=== PATIENT | male | born 1945 | race Caucasian/White ===

== ENCOUNTER 2023-01-30 08:10 | Outpatient (OUT) | payer MEDICARE, SELFPAY ==
--- NOTE | 2023-01-30 08:17 | VEIN_ITS ---
Patient: ESTRADA PFEIFFER Exam Date: 01/30/2023 : 1945 Gender:M Ordering : DR STEPHANIE RODNEY D.P.M. Admission #: [id number] Family : JUANCARLOS ANDRES C Order #: [id number] CLICK HERE TO VIEW EXAM RADIOLOGY REPORT PROCEDURE: VC EXT VENOUS REFLUX QUYNH LMTD COMPARISON: None. INDICATIONS: I83.813 Painful varicose veins of bilat lower extremities TECHNIQUE: Duplex imaging of the lower extremity to assess the deep and superficial venous system for the presence of deep or superficial venous incompetence and to document the location and severity of disease. The study includes evaluation of the great saphenous vein (GSV), anterior accessory saphenous vein (AASV) and small saphenous vein (SSV). Patient scanned in reverse Trendelenburg and standing. FINDINGS: RIGHT LOWER EXTREMITY: Saphenofemoral Junction Reflux: Yes 9.9mm 4.9 sec GSV: Diam (mm) Reflux/ Time (sec) Proximal Thigh 4.2 N/A Mid Thigh 2.9 N/A Distal Thigh N/A Prox Calf 5.8 Yes 2.9 Mid Calf 4.0 Yes 4.6 Saphenopopliteal Junction Reflux: 7.3mm Yes 2.2 SSV: Proximal Calf 5.8 Yes 4.5 Mid Calf 4.2 Yes 1.6 AASV: Proximal Thigh 5.7 Yes 0.8 Mid Thigh 4.1 Yes 0.6 Distal Thigh Thrombi: Chronic partial thrombus in SSV. Compressibility: Partial thrombus of prox SSV. Flow: Severe deep venous reflux. Preforator: Distal medial lower leg 3.6 mm, 1.8s reflux. Prox medial lower leg 4.9 mm, 3.1s reflux. Tech Note: Thigh extention of SSV. Previously treated GSV in thigh. Incompetent varicose vein proixmal anterior lower leg measures 4.7 mm with 1.3s reflux. Distal anterior lateral lower leg varicose vein measures 5.2 mm with 3.0s reflux. LEFT LOWER EXTREMITY: Saphenofemoral Junction Reflux: Yes 12.0 mm 2.2 sec GSV: Diam (mm) Reflux/Time (sec) Proximal Thigh 6.4 Yes 1.7 Mid Thigh 5.7 Yes 1.4 Distal Thigh 6.9 Yes 1.6 Prox Calf 5.8 Yes 3.6 Mid Calf 5.6 Yes 2.8 Saphenopopliteal Junction Relux: 5.6 mm Yes 0.6 SSV: Proximal Calf 5.5 Yes 0.5 Mid Calf 4.2 Yes 0.5 AASV: Proximal Thigh 5.6 Yes 2.9 Mid Thigh 4.7 Yes 1.2 Distal Thigh Thrombi: Chronic thrombus in mid SSV and proximal PTV. Compressibility: Partial thrombus in PTV and SSV. Flow: Severe deep venous reflux. 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 Dist med lower leg 3.5 mm, 2.1s reflux. Prox post calf 4.2 mm, 2.4s reflux. Dist med ankle 4.8 mm, 0.8s reflux Tech Note: Partial thrombus of previously treated GSV in thigh. Incompetent varicose vein measures 6.1 mm with 1.7s reflux. Proximal medial lower leg varicose vein measures 7.7 mm with 1.1s reflux. Varicose vein proximal posterior calf off SSV measures 5.2 mm with 0.8s reflux. CONCLUSION: 1. Moderate to severe venous insufficiency distal patent right great saphenous vein and throughout the left great saphenous vein with saphenofemoral junction reflux and dilatation 2. Moderate to severe right small saphenous vein venous insufficiency with dilatation and saphenopopliteal junction reflux 3. Moderate venous insufficiency left anterior accessory saphenous vein with borderline dilatation 4. Chronic superficial thrombus bilateral small saphenous veins and left deep proximal posterior tibial vein 5. Severe bilateral deep vein reflux 6. Bilateral incompetent perforating veins 7. Moderate to severe bilateral incompetent varicose veins Dictated by: Tulio Rooney MD on 01/30/2023 at 09:41 Approved by: Tulio Rooney MD on 01/30/2023 at 09:45
--- NOTE | 2023-01-30 08:17 | VEIN_ITS ---
Patient: ESTRADA PFEIFFER Exam Date: 01/30/2023 : 1945 Gender:M Ordering : DR STEPHANIE RODNEY D.P.M. Admission #: [id number] Family : JUANCARLOS MCNAIR WOUND C Order #: [id number] CLICK HERE TO VIEW EXAM RADIOLOGY REPORT PROCEDURE: [facility] - OFFICE VISIT INITIAL COMPARISON: None. PROGRESS NOTES: 77-year-old male who presents with a 20 year history of lower extremity pain swelling and varicose veins . The patient rates the pain as a 5 on a scale of 1-10. The patient's left leg is worse than the right leg. Patient's symptoms have significantly progressed over the last several years. The patient did have treatments several years ago in [place] with intravenous laser ablation, the patient cannot provide additional details. 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 The patient's symptoms are partially relieved by rest, leg elevation and compression stockings which she has worn for 2 years. The patient does walk and bike daily. The patient denies any signs and symptoms to suggest arterial ischemia. The patient describes a family history significant for varicose veins in hypertension in his mother. Heart disease in his brother. Occasional social alcohol use. The patient has never smoked. No illicit drug use. The patient does have a history of deep vein thrombus following 2016 left knee surgery. Prior medical history is significant for heart disease with a single stent. Prostate cancer. Bilateral knee replacement, hernia repair and left shoulder rotator cuff repair. The patient does take daily low-dose aspirin. See separate history and physical for medication list. The patient does wear his compression stockings daily throughout the year including the summer months. The notes were reviewed After history and physical exam I discussed at length the pathophysiology of venous hypertension and possible treatments, therapies and strategies available. We discussed at length the importance of elevating the lower extremities above the level of the heart, increased physical activity and compression stocking use. We discussed surgical interventions including ligation, stripping and phlebectomy. We discussed conservative therapy with bilateral thigh-high compression stockings. We discussed intravenous laser ablation, micro foam chemical ablation and injection sclerotherapy. Risks benefits and alternatives were discussed and questions were answered. Ultrasound venous reflux study performed the same day was discussed at length with the patient. The report demonstrates prior occlusion of the proximal to mid right great saphenous vein. Severe venous insufficiency in the remaining right great saphenous vein and throughout the left great saphenous vein. Severe right small saphenous vein venous insufficiency. Moderate left anterior accessory saphenous vein venous insufficiency. Severe bilateral deep vein reflux. Multiple bilateral incompetent dilated perforating veins. Moderate to severe incompetent bilateral varicose veins. Chronic venous thrombus bilateral superficial small saphenous veins and left deep posterior tibial vein PHYSICAL EXAM: The right leg demonstrates moderate scattered varicose reticular and spider veins. Mild subcutaneous edema of the ankle. Mild hemosiderin staining. No active ulceration. The left leg demonstrates moderate to severe scattered varicose, reticular and spider veins. Mild subcutaneous edema of the ankle. Mild to moderate hemosiderin staining. No active ulceration. Both thighs, legs and feet were symmetrically warm to the touch. Good posterior tibial and dorsalis pedis pulses were present bilaterally. [facility] IMPRESSION: 1. Bilateral great saphenous vein, right small saphenous vein and left anterior accessory saphenous vein venous insufficiency with dilatation 2. Moderate to severe bilateral lower extremity varicose veins, left greater than right 3. Mild bilateral lower extremity subcutaneous edema 4. No definite flow significant arterial disease 5. CEAP: C4a, Ep, Asp, Pro PLAN: 1. Endovenous laser ablation left great saphenous vein followed by right small saphenous vein followed by left anterior accessory saphenous vein followed by bilateral port patrol officer vein 2. Micro foam chemical ablation patent right great saphenous vein and bilateral incompetent varicose veins 3. Injection sclerotherapy of reticular and spider veins 4. Long-term use of 20-30 mm bilateral thigh and knee high compression stockings 5. Elevated legs and increased physical activity for symptomatic relief Nurse notes, history and physical were reviewed and confirmed, see attached forms. The nurse was present throughout the physical exam and consultation Dictated by: Tulio Rooney MD on 01/30/2023 at 10:31 Approved by: Tulio Rooney MD on 01/30/2023 at 10:38
== END 2023-01-30 08:11 | disposition home or self-care (01) ==
LOC: VC 08:11
PROVIDERS: Family Provider Family Medicine
DX: I83.813 Varicose veins of bilateral lower extremities with pain (principal)
CPT/HCPCS: 93970; G0463

== ENCOUNTER 2023-02-19 09:00 | Outpatient (OUT) | payer MEDICARE, SELFPAY ==
--- NOTE | 2023-02-19 09:01 | VEIN_ITS ---
[address] [address] Patient Name: ESTRADA PFEIFFER MRN: [id number] date: 1945 Sex: M Assigned Patient Location: Current Patient Location: Accession/Order Number: [id number] Exam Date: 02/19/2023 09:41 Report Date: 02/19/2023 11:12 At the request of: KEVIN SON Procedure: VC Endovenous Ablation 1VeinLT EXAMINATION: VC Endovenous Ablation 1VeinLT HISTORY: I83.813 Painful varicose veins of bilat lower extremities The risks and benefits of the procedure had been previously discussed, and were rediscussed at length. Informed written consent was obtained. Candelaria Álvarez RN and Karlee Jackson RDMS, RVT assisted. Time out procedure was performed. The left lower extremity was prepared and draped in the usual sterile fashion to allow knee flexion in the sterile field. Duplex ultrasound probe was draped in a sterile cover, sterile transmission gel was used. Venous mapping was performed with the areas of dilation and large tributaries marked. The total length was 44 cm from the entry 3 cm above the ankle to mid thigh and at level of chronic thrombus within the great saphenous vein. The diameter of the left great saphenous vein ranged from 6.4 mm. A 30 gauge needle and 1% buffered lidocaine was used to anesthetize the entry site. A 4 mm incision was made with a scalpel and the saphenous vein was entered percutaneously under direct ultrasound guidance with a micropuncture set, a single stick was successful in gaining access. A micro-guide wire was inserted and the needle removed. A micro-set including a dilator was inserted over the microwire and the needle and dilator were removed. A guide wire was inserted through the micro-set and guided through the saphenous vein to the saphenofemoral junction. The dilator was removed and an introducer sheath was inserted over the wire until the end of the sheath entered the saphenofemoral junction. The dilator and wire were removed and the 600 micron fiber was introduced and placed and positioned so that it extended beyond the sheath and was 3 cm distal to the saphenofemoral or saphenopopliteal junction. Final position of the fiber was determined by ultrasound guidance and duplex imaging. Tumescent anesthetic was delivered by ultrasound guidance. 250 cc of fluid was delivered along the entire course of the saphenous vein. The solution consisted of 1000 cc of normal saline with 40 mL of 1% lidocaine and 20 mL of sodium bicarbonate. A final positioning check was made. The energy source was turned on by means of the foot pedal and the fiber and sheath were withdrawn. The total number of Joules delivered was 2454. The laser was active for 307 seconds under continuous pulse, average laser use of 8 J. Laser start time 10:00 AM, 02/19/2023. Laser stop time 10:07 AM, 02/19/2023. A duplex ultrasound revealed compressibility and flow at the saphenofemoral junction immediately after the procedure. Hemostasis at the access site was achieved. The skin incision of the saphenous vein was closed with a 4 x 4. A compression stocking was applied. Postop instructions were given. A follow up appointment was recommended and scheduled. The patient tolerated the procedure well. Electronically authenticated by: LUCIANA MORIN Date: 02/19/2023 11:12
[2023-02-19] MEDS: 0.9 % SODIUM CHLORIDE 500 ML, LIDOCAINE HCL 20 ML, SODIUM BICARBONATE 10 MEQ INJ (09:39)
[2023-02-19] MEDS: LIDOCAINE HCL 10 ML, SODIUM BICARBONATE 1 MEQ INJ (09:39)
== END 2023-02-19 09:01 | disposition home or self-care (01) ==
LOC: VC 09:00
PROVIDERS: Family Provider Family Medicine; PCP Radiology Diagnostic Radiology; Visit Provider Radiology Diagnostic Radiology
DX: I83.813 Varicose veins of bilateral lower extremities with pain (principal)
CPT/HCPCS: 36478

== ENCOUNTER 2023-02-26 09:04 | Outpatient (OUT) | payer MEDICARE, SELFPAY ==
--- NOTE | 2023-02-26 09:05 | VEIN_ITS ---
Patient: ESTRADA PFEIFFER Exam Date: 02/26/2023 : 1945 Gender:M Ordering : DR TULIO ROONEY M.D. Admission #: [id number] Family : Order #: [id number] CLICK HERE TO VIEW EXAM RADIOLOGY REPORT PROCEDURE: [facility] EST L[facility]D [facility] - OFFICE VISIT FOLLOW UP COMPARISON: None. PROGRESS NOTES: The patient reports no significant problems following intravenous laser ablation of the left great saphenous vein. The patient did not require oral analgesics. The patient did wear his compression stockings. The patient has followed our recommendations to walk 20-30 minutes once or twice per day since the procedure. Physical exam demonstrates 2 areas of bruising likely related to tumescence the largest measuring 6 cm in diameter along the mid left medial thigh. The distal incision is closed. Thrombosed left great saphenous vein can be partially palpated. No areas of erythema or warmth to suggest cellulitis or thrombophlebitis. No active ulceration Review of the ultrasound performed the same day demonstrates occlusive thrombus extending throughout the treated left great saphenous vein. There was already nonocclusive thrombus in the proximal left great saphenous vein. No deep vein thrombus. The patient expressed a desire to proceed with treatment of incompetent right small saphenous vein with intravenous laser ablation. VEIN/ Facility EST LMTD IMPRESSION: 1. Successful ablation of the left great saphenous vein. 2. Persistent incompetent right small saphenous vein. PLAN: Intravenous laser ablation right small saphenous vein Nurse notes, history and physical were reviewed and confirmed, see attached forms. The nurse was present throughout the physical exam and consultation Dictated by: Tulio Rooney MD on 02/26/2023 at 10:44 Approved by: Tulio Rooney MD on 02/26/2023 at 11:48
--- NOTE | 2023-02-26 09:05 | VEIN_ITS ---
Patient: ESTRADA PFEIFFER Exam Date: 02/26/2023 : 1945 Gender:M Ordering : DR TULIO ROONEY M.D. Admission #: [id number] Family : Order #: [id number] CLICK HERE TO VIEW EXAM RADIOLOGY REPORT PROCEDURE: VC EXT VENOUS LT LIMITED COMPARISON: None. INDICATIONS: I80.02 Phlebitis of superficial veins of lt lower extremity TECHNIQUE: Lower extremity garrido scale and Duplex Doppler evaluation of the deep venous system from the inguinal ligament through the calf veins. FINDINGS: REGION: Left lower extremity. THROMBI: Negative for DVT. Heat induced thrombus visualized arising at mid thigh and extending through distal calf. The heat induced thrombus began at mid thigh due to chronic thrombus at proximal thigh GSV. COMPRESSIBILITY: Non-compressible segments corresponding to thrombus FLOW: Absent flow corresponding to thrombus OTHER: CONCLUSION: Post ablation occlusion the treated left great saphenous vein with heat induced thrombus. No deep vein thrombus Dictated by: Tulio Rooney MD on 02/26/2023 at 09:26 Approved by: Tulio Rooney MD on 02/26/2023 at 09:33
== END 2023-02-26 09:05 | disposition home or self-care (01) ==
LOC: VC 09:04
PROVIDERS: Family Provider Family Medicine; PCP Radiology Diagnostic Radiology; Visit Provider Radiology Diagnostic Radiology
DX: I80.02 Phlebitis and thrombophlebitis of superficial vessels of left lower extremity (principal)
CPT/HCPCS: 93971; G0463

== ENCOUNTER 2023-03-08 08:04 | Outpatient (OUT) | payer MEDICARE, SELFPAY ==
--- NOTE | 2023-03-08 08:06 | VEIN_ITS ---
[address] [address] Patient Name: ESTRADA PFEIFFER MRN: [id number] date: 1945 Sex: M Assigned Patient Location: Current Patient Location: Accession/Order Number: [id number] Exam Date: 03/08/2023 08:10 Report Date: 03/08/2023 09:27 At the request of: KEVIN SON Procedure: VC Endovenous Ablation 1VeinRT EXAMINATION: VC Endovenous Ablation 1VeinRT HISTORY: I83.813 Painful varicose veins of bilat lower extremities The risks and benefits of the procedure had been previously discussed, and were rediscussed at length. Informed written consent was obtained. Ac Elizabeth RN and Karlee Jackson RDMS, RVT assisted. Time out procedure was performed. The right lower extremity was prepared and draped in the usual sterile fashion to allow knee flexion in the sterile field. Duplex ultrasound probe was draped in a sterile cover, sterile transmission gel was used. Venous mapping was performed with the areas of dilation and large tributaries marked. The total length was 37 cm from the entry 3 cm above the ankle joint to just [id number] where small saphenous vein with IV extension extends below fascial layer into muscle. The diameter of the right small saphenous vein ranged from 5.8 mm. A 30 gauge needle and 1% buffered lidocaine was used to anesthetize the entry site. A 4 mm incision was made with a scalpel and the saphenous vein was entered percutaneously under direct ultrasound guidance with a micropuncture set, a single stick was successful in gaining access. A micro-guide wire was inserted and the needle removed. A micro-set including a dilator was inserted over the microwire and the needle and dilator were removed. A guide wire was inserted through the micro-set and guided through the saphenous vein to the saphenofemoral junction. The dilator was removed and an introducer sheath was inserted over the wire until the end of the sheath entered the saphenofemoral junction. The dilator and wire were removed and the 600 micron fiber was introduced and placed and positioned so that it extended beyond the sheath and was 3 cm distal to the saphenofemoral or saphenopopliteal junction. Final position of the fiber was determined by ultrasound guidance and duplex imaging. Tumescent anesthetic was delivered by ultrasound guidance. 200 cc of fluid was delivered along the entire course of the saphenous vein. The solution consisted of 1000 cc of normal saline with 40 mL of 1% lidocaine and 20 mL of sodium bicarbonate. A final positioning check was made. The energy source was turned on by means of the foot pedal and the fiber and sheath were withdrawn. The total number of Joules delivered was 1881. The laser was active for 235 seconds under continuous pulse, average laser use of 8 J. Laser start time 8:48 AM, 03/08/2023. Laser stop time 8:52 AM, 03/08/2023. A duplex ultrasound revealed compressibility and flow at the saphenofemoral junction immediately after the procedure. Hemostasis at the access site was achieved. The skin incision of the saphenous vein was closed with a 4 x 4. A compression stocking was applied. Postop instructions were given. A follow up appointment was recommended and scheduled. The patient tolerated the procedure well. Electronically authenticated by: LUCIANA MORIN Date: 03/08/2023 09:27
[2023-03-08] MEDS: 0.9 % SODIUM CHLORIDE 500 ML, LIDOCAINE HCL 20 ML, SODIUM BICARBONATE 10 MEQ INJ (08:29)
[2023-03-08] MEDS: LIDOCAINE HCL 1% 100 MG/10 ML MDV INJ (08:29)
== END 2023-03-08 08:05 | disposition home or self-care (01) ==
LOC: VC 08:05
PROVIDERS: Family Provider Family Medicine; PCP Radiology Diagnostic Radiology; Visit Provider Radiology Diagnostic Radiology
DX: I83.813 Varicose veins of bilateral lower extremities with pain (principal)
CPT/HCPCS: 36478

== ENCOUNTER 2023-03-14 08:04 | Outpatient (OUT) | payer MEDICARE, SELFPAY ==
--- NOTE | 2023-03-14 08:06 | VEIN_ITS ---
Patient Name: ESTRADA PFEIFFER MR#: [id number] : 1945 Exam Date: 03/14/2023 Ordering Doctor: DR TULIO ROONEY M.D. RADIOLOGY REPORT PROCEDURE: [facility] EST [facility] - OFFICE VISIT FOLLOW UP [facility] PROGRESS NOTES: The patient reports no significant problems following intravenous laser ablation of the right small saphenous vein. The patient did not require oral analgesics. The patient has worn his compression stockings. The patient has followed our recommendations to walk 20-30 minutes once or twice per day since the procedure. Physical exam demonstrates 3 areas of bruising likely related to tumescence injection measuring up to 4 cm in diameter. No areas of erythema or warmth to suggest cellulitis or thrombophlebitis. No active ulceration. The incision is closed. Review of the ultrasound performed the same day demonstrates occlusive thrombus extending throughout the treated right small saphenous vein which is a thigh extension. No deep vein thrombus. The patient expressed a desire to proceed with treatment of left anterior accessory saphenous vein with intravenous laser ablation. The patient may delay treatment until after the holidays. VEIN/[facility] EST LMTD IMPRESSION: 1. Successful ablation of the right small saphenous vein 2. Persistent incompetent left anterior accessory saphenous. PLAN: Intravenous laser ablation left anterior accessory saphenous vein Nurse notes, history and physical were reviewed and confirmed, see attached forms. The nurse was present throughout the physical exam and consultation Dictated by: Tulio Rooney MD on 03/14/2023 at 08:48 Approved by: Tulio Rooney MD on 03/14/2023 at 08:52
--- NOTE | 2023-03-14 08:06 | VEIN_ITS ---
Patient Name: ESTRADA PFEIFFER MR#: [id number] : 1945 Exam Date: 03/14/2023 Ordering Doctor: DR TULIO ROONEY M.D. RADIOLOGY REPORT PROCEDURE: VC EXT VENOUS RT LMTD COMPARISON: None. INDICATIONS: I80.01 Phlebitis of superficial veins of rt lower extremity TECHNIQUE: Lower extremity garrido scale and Duplex Doppler evaluation of the deep venous system from the inguinal ligament through the calf veins. FINDINGS: REGION: Right lower extremity. THROMBI: Negative for DVT. Heat induced thrombus visualized arising at distal thigh and extending through distal calf. COMPRESSIBILITY: Non-compressible segments corresponding to thrombus FLOW: Areas of absent flow corresponding to thrombus CONCLUSION: Post ablation occlusion of the right small saphenous vein which was a thigh extension. No deep vein thrombus Dictated by: Tulio Rooney MD on 03/14/2023 at 08:22 Approved by: Tulio Rooney MD on 03/14/2023 at 08:23
== END 2023-03-14 08:05 | disposition home or self-care (01) ==
LOC: VC 08:05
PROVIDERS: Family Provider Family Medicine; PCP Radiology Diagnostic Radiology; Visit Provider Radiology Diagnostic Radiology
DX: I80.01 Phlebitis and thrombophlebitis of superficial vessels of right lower extremity (principal)
CPT/HCPCS: 93971; G0463

== ENCOUNTER 2023-03-28 08:01 | Outpatient (OUT) | payer MEDICARE, SELFPAY ==
--- NOTE | 2023-03-28 08:02 | VEIN_ITS ---
[address] [address] Patient Name: ESTRADA PFEIFFER MRN: [id number] date: 1945 Sex: M Assigned Patient Location: Current Patient Location: Accession/Order Number: [id number] Exam Date: 03/28/2023 08:10 Report Date: 03/28/2023 09:27 At the request of: KEVIN SON Procedure: VC Endovenous Ablation 1VeinLT EXAMINATION: VC Endovenous Ablation 1VeinLT HISTORY: I83.813 Painful varicose veins of bilat lower extremities The risks and benefits of the procedure had been previously discussed, and were rediscussed at length. Informed written consent was obtained. Candelaria Álvarez RN and Karlee Jackson RDMS, RVT assisted. Time out procedure was performed. The left lower extremity was prepared and draped in the usual sterile fashion to allow knee flexion in the sterile field. Duplex ultrasound probe was draped in a sterile cover, sterile transmission gel was used. Venous mapping was performed with the areas of dilation and large tributaries marked. The total length was 23 cm from the entry mid-upper thigh to 3 cm below the Saphenofemoral junction. The diameter of the left anterior accessory saphenous vein ranged from 5.6 mm. A 30 gauge needle and 1% buffered lidocaine was used to anesthetize the entry site. A 4 mm incision was made with a scalpel and the saphenous vein was entered percutaneously under direct ultrasound guidance with a micropuncture set, a single stick was successful in gaining access. A micro-guide wire was inserted and the needle removed. A micro-set including a dilator was inserted over the microwire and the needle and dilator were removed. A guide wire was inserted through the micro-set and guided through the saphenous vein to the saphenofemoral junction. The dilator was removed and an introducer sheath was inserted over the wire until the end of the sheath entered the saphenofemoral junction. The dilator and wire were removed and the 600 micron fiber was introduced and placed and positioned so that it extended beyond the sheath and was 3 cm distal to the saphenofemoral or saphenopopliteal junction. Final position of the fiber was determined by ultrasound guidance and duplex imaging. Tumescent anesthetic was delivered by ultrasound guidance. 150 cc of fluid was delivered along the entire course of the saphenous vein. The solution consisted of 1000 cc of normal saline with 40 mL of 1% lidocaine and 20 mL of sodium bicarbonate. A final positioning check was made. The energy source was turned on by means of the foot pedal and the fiber and sheath were withdrawn. The total number of Joules delivered was 1257. The laser was active for 157 seconds under continuous pulse, average laser use of 8 J. Laser start time 8:42 AM, 03/28/2023. Laser stop time 8:45 AM, 03/28/2023. A duplex ultrasound revealed compressibility and flow at the saphenofemoral junction immediately after the procedure. Hemostasis at the access site was achieved. The skin incision of the saphenous vein was closed with a 4 x 4. A compression stocking was applied. Postop instructions were given. A follow up appointment was recommended and scheduled. The patient tolerated the procedure well. Electronically authenticated by: LUCIANA MORIN Date: 03/28/2023 09:27
[2023-03-28] MEDS: LIDOCAINE HCL 1% 100 MG/10 ML MDV INJ (08:23)
[2023-03-28] MEDS: 0.9 % SODIUM CHLORIDE 500 ML, LIDOCAINE HCL 20 ML, SODIUM BICARBONATE 10 MEQ INJ (08:24)
== END 2023-03-28 08:02 | disposition home or self-care (01) ==
LOC: VC 08:01
PROVIDERS: Family Provider Family Medicine; PCP Radiology Diagnostic Radiology; Visit Provider Radiology Diagnostic Radiology
DX: I83.813 Varicose veins of bilateral lower extremities with pain (principal)
CPT/HCPCS: 36478

== ENCOUNTER 2023-04-03 09:31 | Outpatient (OUT) | payer MEDICARE, SELFPAY ==
--- NOTE | 2023-04-03 09:33 | VEIN_ITS ---
Patient Name: ESTRADA PFEIFFER MR#: [id number] : 1945 Exam Date: 04/03/2023 Ordering Doctor: DR TULIO ROONEY M.D. RADIOLOGY REPORT PROCEDURE: [facility] EST LMTD VEIN CENTER - OFFICE VISIT FOLLOW UP COMPARISON: [facility] EST LMTD, 03/14/2023. [facility] EST LMTD, 02/26/2023. PROGRESS NOTES: The patient reports no significant problems following intravenous laser ablation of the left anterior accessory saphenous vein. The patient has worn his compression stocking. The patient has followed our recommendations to walk 20-30 minutes once or twice per day since the procedure. Physical exam demonstrates no erythema or warmth to suggest cellulitis or thrombophlebitis. No active ulceration. Several areas skin abrasions are noted in the upper anterior thigh related to his compression stocking use Review of the ultrasound performed the same day demonstrates occlusive thrombus extending throughout the treated left leg anterior accessory saphenous vein. Heat induced thrombus is 1 4 cm from the saphenofemoral junction. No deep vein thrombus. The patient expressed a desire to proceed with treatment of incompetent right leg varicose veins. VEIN/[facility] EST LMTD IMPRESSION: 1. Successful ablation of the treated left anterior accessory saphenous vein 2. Persistent bilateral incompetent varicose veins. PLAN: Micro foam chemical ablation right leg incompetent varicose veins Nurse notes, history and physical were reviewed and confirmed, see attached forms. The nurse was present throughout the physical exam and consultation Dictated by: Tulio Rooney MD on 04/03/2023 at 12:26 Approved by: Tulio Rooney MD on 04/03/2023 at 12:30
--- NOTE | 2023-04-03 09:33 | VEIN_ITS ---
Patient Name: ESTRADA PFEIFFER MR#: [id number] : 1945 Exam Date: 04/03/2023 Ordering Doctor: DR TULIO ROONEY M.D. RADIOLOGY REPORT PROCEDURE: [facility] EXT VENOUS LT LIMITED COMPARISON: [facility] EXT VENOUS LT LIMITED, 02/26/2023. INDICATIONS: I80.02 Phlebitis of superficial veins of lt lower extremity TECHNIQUE: Lower extremity garrido scale and Duplex Doppler evaluation of the deep venous system from the inguinal ligament through the calf veins. FINDINGS: REGION: Left lower extremity. THROMBI: Negative for DVT. Heat induced thrombus visualized 1.4cm from the SFJ. The heat induced thrombus extends from groin to mid thigh. COMPRESSIBILITY: Non-compressible segments corresponding to thrombus FLOW: Areas of absent flow corresponding to thrombus CONCLUSION: Post ablation occlusion of the treated left anterior accessory saphenous vein Dictated by: Tulio Rooney MD on 04/03/2023 at 09:56 Approved by: Tulio Rooney MD on 04/03/2023 at 09:57
== END 2023-04-03 09:32 | disposition home or self-care (01) ==
LOC: VC 09:31
PROVIDERS: Family Provider Family Medicine; PCP Radiology Diagnostic Radiology; Visit Provider Radiology Diagnostic Radiology
DX: I80.02 Phlebitis and thrombophlebitis of superficial vessels of left lower extremity (principal)
CPT/HCPCS: 93971; G0463

== ENCOUNTER 2023-04-09 08:04 | Outpatient (OUT) | payer MEDICARE, SELFPAY ==
--- NOTE | 2023-04-09 11:49 | VEIN_ITS ---
[address] [address] Patient Name: ESTRADA PFEIFFER MRN: [id number] date: 1945 Sex: M Assigned Patient Location: Current Patient Location: Accession/Order Number: [id number] Exam Date: 04/09/2023 08:01 Report Date: 04/09/2023 12:07 At the request of: KEVIN SON Procedure: VC INJ Foam Sclerosant WUS CLEAN ROOM OPERATOR PROCEDURE: VC INJ Foam Sclerosant WUS CLEAN ROOM OPERATOR COMPARISON: None. HISTORY: I83.813 Bilateral painful varicose veins Pre-operative Diagnosis: CEAP class C4a venous insufficiency with pain, tenderness, edema and incompetent right saphenous and varicose vein(s), chronic venous insufficiency right leg secondary to venous incompetence Post-operative Diagnosis: CEAP class C4a venous insufficiency with pain, tenderness, edema and incompetent right saphenous and varicose vein(s), chronic venous insufficiency right leg secondary to venous incompetence Procedure Performed: 1. Ultrasound-guided microfoam chemical ablation with Varithenaregistered 2. Intraoperative ultrasound guidance Anesthesia: None Indications for Procedure: 77-year-old male who presents with a long history of lower extremity pain and swelling with hemosiderin staining and skin thickening. The patient failed conservative medical therapy including medical compression stockings, exercise and analgesics. Prior procedures include . Multiple incompetent varicosities of the right leg. Duplex scan showed reflux and enlarged diameters up to 6 mm. The patient underwent informed consent including management options where the complications of infection, bleeding, pain, and skin injury were discussed. Particular attention was spent discussing thrombus extension and deep vein thrombosis as well as the possibility of pulmonary embolus and treatment with oral or injectable blood thinners. Procedure: The patient walked to the procedure room. All applicable staff donned appropriate apparel. A procedure timeout was performed to confirm correct patient, correct extremity, correct procedure, and correct room set-up including presence of all applicable supplies, devices, and drugs. A duplex ultrasound, performed by myself confirmed the location and incompetence of branch saphenous varicosities and their course was marked on the skin together with the dilated tributaries. The extent of treatment of the vein and the associated varicosities was determined through ultrasound mapping. The skin was prepped and then punctured with a butterfly needle and advanced under ultrasound guidance. The Varithenaregistered canister was activated and the canister was primed and purged as required in the instructions for use. Varithenaregistered was drawn into a sterile syringe. The following injections MA: 6 cc injected into a 6 mm vein right distal PSV at the level of the ankle 6 cc injected into a 6 mm varicose vein right mid medial lower leg 3 cc injected into the 3 mm varicose vein right lateral distal lower leg Varithenaregistered was slowly administered at 0.5-1.0 cc/second with close observation by ultrasound of its course in the vessels. Total volume utilized was: 15cc. Following administration of Varithenaregistered the leg was elevated and the patient was asked to repeatedly dorsiflex the ankle to limit flow of Varithenaregistered into perforating veins. Once appropriate spasm had been confirmed in the treated veins, the vascular catheter was removed from the leg and light pressure was applied over the puncture site for hemostasis. The common femoral and deep superficial veins were then evaluated for flow and compressibility prior to dressing placement. The lower extremity was kept elevated at 45 degrees above the horizontal and cording material was applied over the saphenous segments and tributaries to allow for eccentric compression over the target vessels including the targeted saphenous vein(s). A multilayer dressing was applied consisting of foam pads, coban and thigh-high 20-30 mm Hg compression elastic support hose were placed on the patient. The leg was lowered only after compression had been applied and the patient was immediately ambulatory. The patient ambulated 10 minutes under supervision and was without apparent concerns at time of release. Post-care instructions include advising patient to keep post-treatment bandages in place and dry for 48 hours, avoid extended periods of inactivity, avoid heavy exercise for one week, wear compression stockings on the treated leg continuously for two weeks, to walk daily for 10 minutes over the next month. The patient was instructed to take an anti-inflammatory medicine as needed and to follow up for color duplex scan of the Saphenous veins, the treated branch saphenous varicosities, the adjacent deep veins, and additional treatment within 7 days. PERSONNEL: Ac Elizabeth RN Electronically authenticated by: KEVIN SON Date: 04/09/2023 12:07
== END 2023-04-09 08:05 | disposition home or self-care (01) ==
LOC: VC 08:05
PROVIDERS: Family Provider Family Medicine; PCP Radiology Diagnostic Radiology; Visit Provider Radiology Diagnostic Radiology
DX: I83.813 Varicose veins of bilateral lower extremities with pain (principal)
CPT/HCPCS: 36466

== ENCOUNTER 2023-04-16 10:33 | Outpatient (OUT) | payer MEDICARE, SELFPAY ==
--- NOTE | 2023-04-16 10:33 | VEIN_ITS ---
Patient Name: ESTRADA PFEIFFER MR#: [id number] : 1945 Exam Date: 04/16/2023 Ordering Doctor: DR TULIO ROONEY M.D. RADIOLOGY REPORT PROCEDURE: [facility] EST LMTD VEIN CENTER - OFFICE VISIT FOLLOW UP COMPARISON: [facility] EST LMTD, 04/03/2023. [facility] EST LMTD, 03/14/2023. PROGRESS NOTES: The patient reports no significant problems following micro foam chemical ablation of the right leg. The patient has worn his compression stocking. The patient did not require oral analgesics. The patient has tried warm to best disability Physical exam demonstrates scattered thrombosed varicose veins. Multiple residual reticular and spider veins. No erythema or warmth to suggest cellulitis thrombosed bypass. No active ulceration. Review of the ultrasound performed the same day demonstrates occlusive thrombus extending throughout the treated right leg varicose veins. No deep vein thrombus. No residual right leg varicose veins. Left leg varicose veins do remain. The patient expressed a desire to proceed with treatment of incompetent left leg varicose veins. VEIN/[facility] EST LMTD IMPRESSION: 1. Successful ablation of treated right leg incompetent varicose veins 2. Persistent incompetent left leg varicose veins. PLAN: Micro foam chemical ablation left leg incompetent varicose veins Nurse notes, history and physical were reviewed and confirmed, see attached forms. The nurse was present throughout the physical exam and consultation Dictated by: Tulio Rooney MD on 04/16/2023 at 11:24 Approved by: Tulio Rooney MD on 04/16/2023 at 11:25
--- NOTE | 2023-04-16 10:33 | VEIN_ITS ---
Patient Name: ESTRADA PFEIFFER MR#: [id number] : 1945 Exam Date: 04/16/2023 Ordering Doctor: DR TULIO ROONEY M.D. RADIOLOGY REPORT PROCEDURE: VC EXT VENOUS RT LMTD COMPARISON: VC EXT VENOUS RT LMTD, 03/14/2023. INDICATIONS: I80.01 Phlebitis of superficial veins of rt lower extremity TECHNIQUE: Lower extremity garrido scale and Duplex Doppler evaluation of the deep venous system from the inguinal ligament through the calf veins. FINDINGS: REGION: Right lower extremity. THROMBI: Negative for DVT. Varithena induced thrombus visualized at prox/med calf and mid/med calf COMPRESSIBILITY: Non-compressible segments corresponding to thrombus FLOW: Areas of absent flow corresponding to thrombus OTHER: No patent varicose veins remain. CONCLUSION: Post ablation occlusion of treated right leg varicose veins. No residual incompetent patent varicose veins remain Dictated by: Tulio Rooney MD on 04/16/2023 at 11:19 Approved by: Tulio Rooney MD on 04/16/2023 at 11:24
== END 2023-04-16 10:34 | disposition home or self-care (01) ==
LOC: VC 10:33
PROVIDERS: Family Provider Family Medicine; PCP Radiology Diagnostic Radiology; Visit Provider Radiology Diagnostic Radiology
DX: I80.01 Phlebitis and thrombophlebitis of superficial vessels of right lower extremity (principal)
CPT/HCPCS: 93971; G0463

== ENCOUNTER 2023-05-03 11:02 | Outpatient (OUT) | payer MEDICARE, SELFPAY ==
--- NOTE | 2023-05-03 11:09 | VEIN_ITS ---
The [address] [address] Patient Name: ESTRADA PFEIFFER MRN: [id number] date: 1945 Sex: M Assigned Patient Location: Current Patient Location: Accession/Order Number: [id number] Exam Date: 05/03/2023 11:10 Report Date: 05/03/2023 12:12 At the request of: KEVIN SON Procedure: VC INJ Foam Sclerosant WUS EXHIBITION SPECIALIST PROCEDURE: VC INJ Foam Sclerosant WUS EXHIBITION SPECIALIST COMPARISON: None. HISTORY: I83.813 Bilateral painful varicose veins Pre-operative Diagnosis: CEAP class C4a venous insufficiency with pain, tenderness, edema and incompetent left saphenous and varicose vein(s), chronic venous insufficiency left leg secondary to venous incompetence Post-operative Diagnosis: CEAP class C4a venous insufficiency with pain, tenderness, edema and incompetent left saphenous and varicose vein(s), chronic venous insufficiency left leg secondary to venous incompetence Procedure Performed: 1. Ultrasound-guided microfoam chemical ablation with Varithenaregistered 2. Intraoperative ultrasound guidance Anesthesia: None Indications for Procedure: 77-year-old male who presents with a long history: Extremity pain swelling in varicose veins: 80 and venous stasis ulcerations with a nonhealing. The patient failed conservative medical therapy including medical compression stockings, exercise and analgesics. Prior procedures include intravenous laser ablation and micropuncture dilation. Multiple incompetent varicosities of the left leg. Duplex scan showed reflux and enlarged diameters up to 8 mm. The patient underwent informed consent including management options where the complications of infection, bleeding, pain, and skin injury were discussed. Particular attention was spent discussing thrombus extension and deep vein thrombosis as well as the possibility of pulmonary embolus and treatment with oral or injectable blood thinners. Procedure: The patient walked to the procedure room. All applicable staff donned appropriate apparel. A procedure timeout was performed to confirm correct patient, correct extremity, correct procedure, and correct room set-up including presence of all applicable supplies, devices, and drugs. A duplex ultrasound, performed by myself confirmed the location and incompetence of branch saphenous varicosities and their course was marked on the skin together with the dilated tributaries. The extent of treatment of the vein and the associated varicosities was determined through ultrasound mapping. The skin was prepped and then punctured with a butterfly needle and advanced under ultrasound guidance. The Varithenaregistered canister was activated and the canister was primed and purged as required in the instructions for use. Varithenaregistered was drawn into a sterile syringe. The following injections were made: 8 cc injected into a 8 mm varicose vein distal medial left calf 7 cc injected into a 7 mm varicose vein left lateral distal calf Varithenaregistered was slowly administered at 0.5-1.0 cc/second with close observation by ultrasound of its course in the vessels. Total volume utilized was: 15cc. Following administration of Varithenaregistered the leg was elevated and the patient was asked to repeatedly dorsiflex the ankle to limit flow of Varithenaregistered into perforating veins. Once appropriate spasm had been confirmed in the treated veins, the vascular catheter was removed from the leg and light pressure was applied over the puncture site for hemostasis. The common femoral and deep superficial veins were then evaluated for flow and compressibility prior to dressing placement. The lower extremity was kept elevated at 45 degrees above the horizontal and cording material was applied over the saphenous segments and tributaries to allow for eccentric compression over the target vessels including the targeted saphenous vein(s). A multilayer dressing was applied consisting of foam pads, coban and thigh-high 20-30 mm Hg compression elastic support hose were placed on the patient. The leg was lowered only after compression had been applied and the patient was immediately ambulatory. The patient ambulated 10 minutes under supervision and was without apparent concerns at time of release. Post-care instructions include advising patient to keep post-treatment bandages in place and dry for 48 hours, avoid extended periods of inactivity, avoid heavy exercise for one week, wear compression stockings on the treated leg continuously for two weeks, to walk daily for 10 minutes over the next month. The patient was instructed to take an anti-inflammatory medicine as needed and to follow up for color duplex scan of the Saphenous veins, the treated branch saphenous varicosities, the adjacent deep veins, and additional treatment within 7 days. PERSONNEL: Ac Jeffers Electronically authenticated by: KEVIN SON Date: 05/03/2023 12:12
--- OUTSIDE RECORDS SUMMARY | 2023-05-03 11:21 | XMS_ITS | CCD ---
Author Name Unknown Address [address] [place] [address] Organization [facility] Care Team Providers Care Licensed Marriage And Family Therapist Name Role Phone Rinku Encinas Unavailable Unavailable Unavailable DO Rinku Encinas III Primary Care Provider MD Tulio Hinojosa Attending Provider [phone] Rinku Encinas III Primary Care Physician Asuncion Gonzales Unavailable Unavailable DO Rinku Encinas III Primary Care Provider RENEE Mccormack Priscila Attending Provider [phone] [place], Priscila Unavailable Tulio Hinojosa Admitting Unavailable Tulio Hinojosa Attending Unavailable Rinku Encinas III, III Primary Care Unavai manuela Encinas III, III, Rinku Callahan Primary Care Unavai lable [place] Priscila Admitting Unavailable [place] Priscila Attending Unavailable Unavailable Unavailable Dr. Rinku Encinas III Primary Care Helena Deshpande, Dr. Summer Douglas Referring Linda vailable Jeramy, Dr. Summer Douglas Attending Linda vailable Jeramy, Dr. Summer Douglas Attending Linda valincolnble Huang BUCHANAN, Dr. Rinku Callahan Primary Care Helena Deshpande, Dr. Summer Douglas Referring Linda vailable Milla Montoya Admitting Unavailable Milla Montoya Attending Unavailable Milla Montoya Referring Unavailable Todd BRAXTON Attending Unavailable Rinku Encinas Referring Unavailable Zina Ugalde Attending Unavaila GLORIA Scherer E Attending Unavailab le MATTHEW, GLORIA Meza Attending Unavailab le MATTHEW, GLORIA Meza Attending Unavailab le BRAXTON, Todd Callahan Admitting Unavailable BRAXTON, Todd Callahan Attending Unavailable MATTHEW, GLORIA Meza Admitting Unavailab le MATTHEW, GLORIA Meza Attending Unavailab le MATTHEW, GLORIA Meza Admitting Unavailab le MATTHEW, GLORIA Meza Attending Unavailab le Deshpande, Summer Admitting Unavailable Deshpande, Summer Attending Unavailable Topher, Josh S. Attending Unavailable BRAXTON, Todd Callahan Admitting Unavailable BRAXTON, Todd Callahan Attending Unavailable BRAXTON, Todd Callahan Referring Unavailable Pocos, Tulio Quiñonez Admitting Unavailable Pocos, Tulio Quiñonez Attending Unavailable Pocos, Tulio Quiñonez Referring Unavailable MATTHEW, GLORIA Meza Referring Unavailab le MATTHEW, GLORIA Meza Admitting Unavailab le MATTHEW, GLORIA Meza Attending Unavailab behzad BLANKKAYLI Attending Unavailable Allergies Allergy Classification Reported Allergen(s) Allergy Type Date of Onset Reaction(s) Facility (7 sources) Iodine; Translations: [Iodine SOLN] Drug Allergy Itching, Rash [place] [address] DO Work Phone: (20 sources) Penicillins; Translations: [Penicillins] Allergy to drug (finding) Unknown (qualifier value) [place] [address] DO Work Phone: (9 sources) shellfish, unspecified; Translations: [shellfish] Allergy to substance (finding) Shortness of breath, Other [facility] Repository (20 sources) Sulfonamides (Antibiotic); Translations: [Sulfa Drugs] Allergy to drug (finding) Discoloration of skin (finding) [place] [address] DO Work Phone: (16 sources) Calcium Carbonate; Translations: [calcium carbonate] Drug Allergy Swelling, Hives [facility] Comment on above: calcium sulfate (17 sources) Iodine; Translations: [iodine] Drug Allergy Hives, Swelling [facility] (16 sources) Shellfish; Translations: [shellfish] Drug allergy Difficulty breathing (finding) [facility] (16 sources) Fish 1 Propensity to adverse reactions to substance Difficulty breathing (finding) [facility] Comment on above: trout (2 sources) Penicillin Drug Allergy swelling [facility] Other (2 sources) Sulfonamides (Antibiotic) Propensity to adverse reactions rash [facility] Other (1 source) Calcium; Translations: [Calcium] Drug Allergy [facility] Repository (1 source) Fish - dietary; Translations: [Fish] Propensity to adverse reactions (disorder) [facility] Repository Medications Current Medications Medication Drug Class(es) Dates Sig (Normalized) Sig (Original) acetaminophen 325 mg oral tablet (4 sources) Start: 06-28-2021 take 2 tablets by mouth every six hours acetaminophen 325 mg Tab 650 mg = 2 tab(s), Oral, q6hr, Refills(s) 0 Start Date: 06/28/21 Status: Ordered aspirin 81 mg oral capsule (20 sources) Platelet Aggregation Inhibitor, Nonsteroidal Anti-inflammatory Drug Start: 02-07-2022 take 1 capsule by mouth twice daily aspirin 81 mg oral capsule 81 mg = 1 cap(s), Oral, BID Start Date: 02/07/22 Status: Ordered Start: 10-05-2020 take 2 tablets by mo [facility] once daily Aspirin Adult Low Strength 81 MG Oral Tablet Delayed Release take 2 tablets by mouth every day Quantity: 180 Refills: 3 Ordered: 17-Dec-2022 Summer Deshpande MD Start : 05-Oct-2020 Active fill if requested. [facility] Baby Aspirin 81 MG 1 tablet Orally Once a day for 30 day(s) Active atorvastatin 40 mg oral tablet (20 sources) HMG-CoA Reductase Inhibitor Start: 02-10-2014 take 40 mg by mouth once daily Lipitor 40 mg, Oral, Daily, High cholesterol Start Date: 02/10/14 Status: Ordered Atorvastatin Logan cium Active docusate sodium 100 mg oral capsule (8 sources) Start: 06-27-2021 take 1 capsule by mouth twice daily as needed for constipation Colace 100 mg Cap 100 mg = 1 cap(s), Oral, BID, PRN for constipation, # 40 cap(s), Refills(s) 0, Pharmacy: [id number], 180, cm, 06/06/21 15:55:00 EST, Height/Length Dosing, 113.6, kg, 06/06/21 15:55:00 EST, Weight Dosing Start Date: 06/27/21 Status: Ordered finasteride 5 mg oral tablet (20 sources) 5-alpha Reductase Inhibitor Start: 05-18-2020 take 1 tablet by mouth once daily finasteride 5 mg Tab 5 mg = 1 tab(s), Oral, Daily, # 90 tab(s), Refills(s) 3, Pharmacy: [facility], 180, cm, 10/16/22 8:31:00 EDT, Height/Length Dosing, 109, kg, 10/03/22 13:53:00 EDT, Weight Dosing Start Date: 02/20/23 Status: Ordered Finasteride Acti ve losartan potassium 50 mg oral tablet (20 sources) Angiotensin 2 Receptor Nyla Start: 11-07-2017 take 1 tablet by mouth once daily losartan 50 mg Tab 50 mg = 1 tab(s), Oral, Daily, Refills(s) 0, High blood pressure Start Date: 11/07/17 Status: Ordered Losartan Potassi um Active magnesium hydroxide 80 mg/ml oral suspension (4 sources) Start: 06-28-2021 take 2.4 g by mouth twice daily magnesium hydroxide 8% Oral Susp 30 mL 2.4 gm, 30 mL, Oral, BID Constipation, Refill(s) 0 Start Date: 06/28/21 Status: Ordered nitroglycerin 0.4 mg/actuat mucosal spray (13 sources) Nitrate Vasodilator Start: 11-07-2017 Nitro 0.4 mg Tab = 1 tab(s), SubLingual, q5min, PRN Chest pain, # 25 tab(s), Refills(s) 3 Start Date: 11/07/17 Status: Ordered Nitroglycerin 0. 4 MG Sublingual Tablet Sublingual PL[address] 1 TABLET UNDER THE TONGUE EVERY 5 MINUTES FOR UP TO 3 DOSES NEEDED FOR CHEST PAIN.CALL 911 IF PAIN PERSISTS. Quantity: 25 Refills: 11 Ordered: 08-May-2021 Jeramy DOUGLASS, Summer Active Nitroglycerin Ac tive oxyCODONE hydrochloride 5 mg oral tablet (8 sources) Opioid Agonist Start: 06-27-2021 take 1 tablet by mouth every six hours as needed for pain, then take 1-2 tablets by mouth every four to six hours as needed for pain oxyCODONE 5 mg Tab 5 mg = 1 tab(s), Oral, q6hr, 1-2 po q4-6 hrs prn pain Dx: M17.11, Z96.651 Duration: 7days, # 40 tab(s), Refills(s) 0, Pharmacy: [id number], 180, cm, 06/06/21 15:55:00 EST, Height/Length Dosing, 113.6, kg, 06/06/21 15:55:00 EST, Ramírez... Start Date: 06/27/21 Status: Ordered Vitamin C 500 mg Tab (4 sources) Start: 06-28-2021 Vitamin C 500 mg Tab 500 mg = 1 tab(s), Oral, BIDWM, Refills(s) 0 Start Date: 06/28/21 Status: Ordered Completed/Discontinued Medications Medication Drug Class(es) Dates Sig (Normalized) Sig (Original) apixaban 5 mg oral tablet (1 source) Factor Xa Inhibitor Start: 06-28-2021 Eliquis 5 MG Oral Tablet Quantity: 42 Refills: 0 Ordered: 28-Jun-2021 DO Start : 28-Jun-2021 Complete bimatoprost 0.3 mg/ml ophthalmic solution (1 source) Prostaglandin Analog Start: 03-30-2021 Bimatoprost 0.03 % Ophthalmic Solution Quantity: 7 Refills: 0 Ordered: 13-Jun-2021 DO Start : 30-Mar-2021 Complete Chondroitin Sulfate 150 MG (2 sources) Chondroitin Sulfate 150 MG as directed Orally Not-Taking ciprofloxacin 500 mg oral tablet (9 sources) Quinolone Antimicrobial Start: 10-03-2022 Cipro 500 mg Tab 500 mg = 1 tab(s), Oral, As Directed, Patient to take 1 tab the day before procedure and the 2nd tab the day of procedure once completed, # 2 tab(s), Refills(s) 0, Pharmacy: [facility], 180, cm, 10/03/22 13:53:00 EDT, Height/Length Dosing, 109, kg, 10/03/22 13:53:00 EDT, Weight Dosing Start Date: 10/03/22 Status: Ordered Ciprofloxacin Ac tive clindamycin 300 mg oral capsule (7 sources) Lincosamide Antibacterial Start: 04-13-2021 take 2 capsules by mouth every hour Clindamycin HCl - 300 MG Oral Capsule TAKE 2 CAPSULES 1 HOUR PRIOR TO DENTAL APPOINTMENT. Quantity: 0 Refills: 0 Ordered: 13-Apr-2021 DO Start : 13-Apr-2021 Active latanoprost 0.05 mg/ml ophthalmic solution (1 source) Prostaglandin Analog Start: 08-29-2021 Latanoprost 0.005 % Ophthalmic Solution Quantity: 7 Refills: 0 Ordered: 29-Aug-2021 DO Start : 29-Aug-2021 Complete pravastatin sodium 10 mg oral tablet (2 sources) HMG-CoA Reductase Inhibitor take 2 tablets by mouth once daily Pravachol 10 MG 2 tablets Orally Once a day for 30 day(s) Not-Taking tamsulosin hydrochloride 0.4 mg oral capsule (2 sources) alpha-Adrenergic Nyla take 1 capsule by mouth every twenty-four hours Flomax 0.4 MG 1 capsule 30 minutes after the same meal each day Orally Once a day for 30 day(s) Not-Taking Problems Active Problems Problem Classification Problem Date Documented Da te Episodic/Chronic Cancer of prostate (16 sources) Malignant tumor of prostate 10-08-2013 Chronic Cancer of prostate (19 sources) History of malignant neoplasm of prostate; Translations: [Personal history of malignant neoplasm of prostate] Onset: 10-03-2022 01-21-2019 Episodic Coronary atherosclerosis and other heart disease (20 sources) Coronary atherosclerosis; Translations: [Coronary atherosclerosis of unspecified type of vessel, pilot point or graft] 06-27-2021 Chronic Coronary atherosclerosis and other heart disease (7 sources) Past history of procedure; Translations: [Percutaneous transluminal coronary angioplasty status] Episodic Disorders of lipid metabolism (7 sources) Hyperlipidemia; Translations: [Other and unspecified hyperlipidemia] Chronic Essential hypertension (20 sources) Essential hypertension; Translations: [Unspecified essential hypertension] 10-08-2013 Chronic Gastrointestinal hemorrhage (4 sources) Hematochezia; Translations: [Melena] Onset: 02-18-2023 02-18-2023 Episodic Genitourinary symptoms and ill-defined conditions (20 sources) Post-micturition incontinence ; Translations: [Urge incontinence of urine] 01-21-2019 Chronic Genitourinary symptoms and ill-defined conditions (20 sources) Increased frequency of urination; Translations: [Nocturia] Onset: 10-03-2022 01-21-2019 Episodic Hyperplasia of prostate (17 sources) Benign prostatic hypertrophy with outflow obstruction; Translations: [Benign prostatic hyperplasia with lower urinary tract symptoms] Onset: 10-03-2022 01-21-2019 Chronic Osteoarthritis (16 sources) Osteoarthritis 06-27-2021 Chronic Other and unspecified benign neoplasm (4 sources) History of polyp of colon; Translations: [Personal history of colonic polyps] Onset: 02-18-2023 02-18-2023 Episodic Other connective tissue disease (2 sources) Olecranon bursitis; Translations: [Olecranon bursitis of right elbow] Episodic Other diseases of kidney and ureters (1 source) Urinary tract obstruction; Translations: [Other obstructive and reflux uropathy] Onset: 02-06-2022 Episodic Other gastrointestinal disorders (1 source) Dysphagia; Translations: [Dysphagia, unspecified] Onset: 03-18-2023 Episodic Other injuries and conditions due to external causes (1 source) Injury of multiple muscles and tendons at shoulder and upper arm level; Translations: [Unspecified injury of muscle(s) and tendon(s) of the rotator cuff of unspecified shoulder, initial encounter] Onset: 06-24-2022 Episodic Other nutritional; endocrine; and metabolic disorders (20 sources) Obesity; Translations: [Obesity, unspecified] 02-10-2014 Chronic Other nutritional; endocrine; and metabolic disorders (20 sources) Body mass index 30+ - obesity; Translations: [Body mass index (BMI) 34.0-34.9, adult] 01-27-2020 Chronic Other nutritional; endocrine; and metabolic disorders (3 sources) Obese class I; Translations: [Body mass index (BMI) 33.0-33.9, adult] Onset: 03-18-2023 Chronic Other nutritional; endocrine; and metabolic disorders (1 source) Body mass index (BMI) 35.0-35.9, adult Chronic Phlebitis; thrombophlebitis and thromboembolism (7 sources) Deep venous thrombosis; Translations: [Acute venous embolism and thrombosis of unspecified deep vessels of lower extremity] Episodic Residual codes; unclassified (5 sources) Sleep apnea; Translations: [Unspecified sleep apnea] Chronic Residual codes; unclassified (20 sources) Obstructive sleep apnea syndrome; Translations: [Obstructive sleep apnea (adult) (pediatric)] 06-27-2021 Chronic Comment on above: uses CPAP Residual codes; unclassified (1 source) Obstructive sleep apnea (adult) (pediatric) Chronic Residual codes; unclassified (1 source) Obstructive sleep apnea (adult)(pediatric); Translations: [Obstructive sleep apnea (adult) (pediatric)] Onset: 01-31-2022 Chronic Residual codes; unclassified (16 sources) H/O: anticoagulant therapy 01-21-2019 Episodic Unclassified (1 source) G47.33 - Obstructive sleep apnea (adult) (pediatric); Translations: [G47.33 - Obstructive sleep apnea (adult) (pediatric)] Onset: 08-23-2021 Varicose veins of lower extremity (2 sources) Varicose veins of lower extremity; Translations: [Varicose veins of unspecified lower extremity with other complications] Onset: 12-11-2021 Episodic Past or Other Problems Problem Classification Problem Date Documented Da te Episodic/Chronic Unclassified (7 sources) Never smoked tobacco; Translations: [Never a smoker] Results Test Name Value Interpretation Reference Range Facility Ambulatory Visit Summaryon 1 05-18-2022 Ambulatory Visit Summary [place] :1945 Visit Date:03/18/2023 Ambulatory Visit Instructions Your Diagnosis Bloody stools History of colon polyps Personal history of prostate cancer Dysphagia, Dysphagia BMI 34.0-34.9,adult Your Care Team Attending Physician - Zina Ugalde MD Primary Care Physician - Rinku Encinas III, DO Referring Physician - Rinku Encinas III, DO This Is Your Medications List aspirin (aspirin 81 mg oral capsule) atorvastatin (Lipitor) finasteride (finasteride 5 mg Tab) losartan (losartan 50 mg Tab) Procedures Performed Cystourethroscopy with dilation of urethral stricture (10/16/2022), Endovenous laser ablation of varicose vein (02/15/2022), Total knee replacement (06/27/2021), Cystoscopy (06/11/2017), left total knee arthroplasty (04/13/2016), left shoulder arthroscopy with extensive glenohumeral debridement, subacromial decompression, partial distal clavicectomy, mini-open rotator cuff repair (02/23/2014), Brachytherapy (07/12/2011), Laser ablation of prostate (08/12/2007), Urodynamics (07/15/2007), Transrectal biopsy of prostate using ultrasound (US) guidance (05/24/2000), Cancer of prostate, Hernia, Sleep studies, Stented coronary artery... Discharge Vitals Heart Rate (Peripheral) 70 Respiratory Rate 18 Blood Pressure 136/82 Height 180 cm Height 71 in Weight 112 kg Weight 246.4 lb BMI 34.57 What to do next Scheduled Follow-Up Appointments 2023 8:30 AM EST With: MATTHEW CASTRO, ANJELICA Meza Where: [facility] Consent for Procedure/Surger yon 03-18-2023 Consent for Procedure/Surgery [id number]# 1.00TIFF [facility] Gastroenterology Office/Clin ic Noteon 03-18-2023 Gastroenterology Office/Clinic Note Chief Complaint bloody stools, hx of colon polyps HPI Staff Patient is a 77 year old male who was referred by Huang for bloody stools and hx of colon polyps. Last colonoscopy 11/07/2017 w/Dr. Roper. 5 year recall due. Denies family history of colon cancer/polyps. Denies recent imaging/labs. Uses ASA 81mg d/t CAD. Bloody stools: 2x since October. States he strained d/t constipation and saw a few drops of blood in the toilet and toilet paper when he wiped. Colonoscopy: 1. Sessile polyp, 5 mm, in the ascending colon, removed completely with cold snare 2. Flat polyp, 15 mm, in the transverse colon, removed completely with hot snare after submucosal lifting 3. Large nonbleeding internal hemorrhoids Pathology: A: POLYP, TRANSVERSE COLON, POLYPECTOMY: HYPERPLASTIC POLYP. B: POLYP, ASCENDING COLON, POLYPECTOMY: TUBULAR ADENOMA. History of Present Illness had blood with tool 1 month ago, small, associated with hard stools, that resolved now normal BM, daily has mild dysphagia occasionally to solids, no impacitons Review of Systems PHQ Score Initial Depression Screen Score: 2 SCORE Physical Exam Vitals & Measurements HR: 70(Peripheral) RR: 18 BP: 136/82 HT: 71 in HT: 180 cm WT: 112 kg WT: 246.4 lb BMI: 34.57 General: in Nad Abdomen: Soft, NTND Assessment/Plan 1. Bloody stools (K92.1: Melena) minimal resolved Ordered: CBC w/ Auto Diff Comprehensive Metabolic Panel 2. History of colon polyps (Z86.010: Personal history of colonic polyps) time to repeat colonoscopy Had 1.5 cm hyperplastic polyp in the transverse colon and less than 1 cm tubular adenoma 2017 3. Personal history of prostate cancer (Z85.46: Personal history of malignant neoplasm of prostate) 4. Dysphagia, (R13.10: Dysphagia, unspecified)Dysphagia It is reasonable to get an EGD with possible dilation Ordered: Colonoscopy (Hospital Procedure) EGD Endoscopy (Hospital Procedure) 5. BMI 34.0-34.9,adult (Z68.34: Body mass index [BMI] 34.0-34.9, adult) Follow-up No qualifying data available Problem List/Past Medical History Ongoing Bloody stools BMI 34.0-34.9,adult BPH with urinary obstruction CAD (coronary artery disease) Frequent urination Gross hematuria History of colon polyps Hx of detention use of blood thinners Nocturia Obesity 29-OCT-2013 12:37:00<$> Obstructive sleep apnea Osteoarthritis Personal history of prostate cancer Post-void dribbling Urge incontinence Historical Coronary artery disease HTN (hypertension) Prostate cancer Procedure/Surgical History Cystourethroscopy with dilation of urethral stricture (10/16/2022), Endovenous laser ablation of varicose vein (02/15/2022), Total knee replacement (06/27/2021), Cystoscopy (06/11/2017), left total knee arthroplasty (04/13/2016), left shoulder arthroscopy with extensive glenohumeral debridement, subacromial decompression, partial distal clavicectomy, mini-open rotator cuff repair (02/23/2014), Brachytherapy (07/12/2011), Laser ablation of prostate (08/12/2007), Urodynamics (07/15/2007), Transrectal biopsy of prostate using ultrasound (US) guidance (05/24/2000), Cancer of prostate, Hernia, Sleep studies, Stented coronary artery... Medications aspirin 81 mg oral capsule, 81 mg= 1 cap(s), Oral, BID finasteride 5 mg Tab, 5 mg= 1 tab(s), Oral, Daily, 3 refills influenza virus vaccine, inactivated HIGH-DOSE preservative-free intramuscular suspension FT Rule H, 0.7 mL, IntraMuscular, Once, PRN Lipitor, 40 mg, Oral, Daily losartan 50 mg Tab, 50 mg= 1 tab(s), Oral, Daily Allergies Calcium (Swelling, Hives) Fish (Trouble breathing) iodine (Hives, Swelling) penicillins (Unknown) shellfish (Trouble breathing) sulfa drugs (Discoloration of skin) Social History Alcohol - Denies Alcohol Use, 08/27/2013 Substance Abuse - Denies Substance Abuse, 08/27/2013 Tobacco - Denies Tobacco Use, 08/27/2013 Never (less than 100 in lifetime) Tobacco Use:. Never Smokeless Tobacco Use:., 03/18/2023 Family History Diabetes mellitus type 2: Mother. Hypertension: Mother and Father. Stroke: Mother and Father. Immunizations Vaccine Date Status Comments influenza virus vaccine, inactivated 02/19/2023 Recorded influenza virus vaccine, inactivated - Not Given Patient Refuses influenza virus vaccine, inactivated 02/05/2022 Recorded SARS-CoV-2 (COVID-19) [id number] 01/16/2022 Recorded SARS-CoV-2 (COVID-19) mRNA-1273 vaccine 03/01/2021 Given influenza virus vaccine, inactivated 02/21/2021 Recorded diphtheria/pertussis, acel/tetanus adult 12/29/2020 Given SARS-CoV-2 (COVID-19) mRNA-1273 vaccine 06/22/2020 Given Other (see comment) SARS-CoV-2 (COVID-19) mRNA-1273 vaccine 05/25/2020 Given Other (see comment) influenza virus vaccine, inactivated 02/08/2020 Recorded pneumococcal 13-valent vaccine 05/16/2018 Recorded influenza virus vaccine, inactivated 04/28/2018 Recorded influenza virus vaccine, inactivated 02/16/2017 Re (more content not included)... Normal [facility] Comment on above: Result Comment: Elec tronically Signed By: Tram DOUGLASS, Zina Gallardo\.br\Date and Time Signed: 03/18/23 11:03 EST [place] 03-07-2023 Screens [id number] #1.00TIFF Normal [facility] Patient Educationon 03-06-20 Patient Education Oncology Prostate Cancer Screening Prostate cancer screening is testing that is done to check for the presence of prostate cancer in men. The prostate gland is a walnut-sized gland that is located below the bladder and in front of the rectum in males. The function of the prostate is to add fluid to semen during ejaculation. Prostate cancer is one of the most common types of cancer in men. Who should have prostate cancer screening? Screening recommendations vary based on age and other risk factors, as well as between the professional organizations who make the recommendations. In general, screening is recommended if: ? You are age 50 to 70 and have an average risk for prostate cancer. You should talk with your health care provider about your need for screening and how often screening should be done. Because most prostate cancers are slow growing and will not cause , screening in this age group is generally reserved for men who have a 10- to 15-year life expectancy. ? You are younger than age 50, and you have these risk factors: ? Having a father, brother, or uncle who has been diagnosed with prostate cancer. The risk is higher if your family member's cancer occurred at an early age or if you have multiple family members with prostate cancer at an early age. ? Being a male who is Black or is of [place] or sub-Saharan descent. In general, screening is not recommended if: ? You are younger than age 40. ? You are between the ages of 40 and 49 and you have no risk factors. ? You are 70 years of age or older. At this age, the risks that screening can cause are greater than the benefits that it may provide. If you are at high risk for prostate cancer, your health care provider may recommend that you have screenings more often or that you start screening at a younger age. How is screening for prostate cancer done? The recommended prostate cancer screening test is a blood test called the prostate-specific antigen (PSA) test. PSA is a protein that is made in the prostate. As you age, your prostate naturally produces more PSA. Abnormally high PSA levels may be caused by: ? Prostate cancer. ? An enlarged prostate that is not caused by cancer (benign prostatic hyperplasia, or BPH). This condition is very common in older men. ? A prostate gland infection (prostatitis) or urinary tract infection. ? Certain medicines such as male hormones (like testosterone) or other medicines that raise testosterone levels. A rectal exam may be done as part of prostate cancer screening to help provide information about the size of your prostate gland. When a rectal exam is performed, it should be done after the PSA level is drawn to avoid any effect on the results. Depending on the PSA results, you may need more tests, such as: ? A physical exam to check the size of your prostate gland, if not done as part of screening. ? Blood and imaging tests. ? A procedure to remove tissue samples from your prostate gland for testing (biopsy). This is the only way to know for certain if you have prostate cancer. What are the benefits of prostate cancer screening? ? Screening can help to identify cancer at an early stage, before symptoms start and when the cancer can be treated more easily. ? There is a small chance that screening may lower your risk of dying from prostate cancer. The chance is small because prostate cancer is a slow-growing cancer, and most men with prostate cancer from a different cause. What are the risks of prostate cancer screening? The main risk of prostate cancer screening is diagnosing and treating prostate cancer that would never have caused any symptoms or problems. This is called overdiagnosisand overtreatment. PSA screening cannot tell you if your PSA is high due to cancer or a different cause. A prostate biopsy is the only procedure to diagnose prostate cancer. Even the results of a biopsy may not tell you if your cancer needs to be treated. Slow-growing prostate cancer may not need any treatment other than monitoring, so diagnosing and treating it may cause unnecessary stress or other side effects. Questions to ask your health care provider ? When should I start prostate cancer screening? ? What is my risk for prostate cancer? ? How often do I need screening? ? What type of screening tests do I need? ? How do I get my test results? ? What do my results mean? ? Do I need treatment? Where to find more information ? The [employer]: www.cancer.org ? [employer]: www.auanet.org Contact a health care provider if: ? You have difficulty urinating. ? You have pain when you urinate or ejaculate. ? You have blood in your urine or semen. ? You have pain in your back or in the area of your prostate. Summary ? Prostate cancer is a common type of cancer in men. The prostate gland is located below the bladder and in front of the rectum. This gland adds flu (more content not included)... Normal [facility] Urology Office/Clinic Noteon 03-06-2023 Urology Office/Clinic Note Chief Complaint Pt is here for 5 month f/u w/ PSA HPI Staff 5 month follow up w/PSA. Current PSA <0.1 done on 03/05/23. Previous PSA 0.1 done 02/06/22. Follow up to Cysto/UD done 10/16/22, CT SCAN done 10/11/22. Previous DX: BPH w/urinary obstruction, frequent urination, nocturia, post void dribbling, urge incontinence. *Finasteride 5mg qd. S/P Brachytherapy done 06/2011. Repeat CYTOL/FISH done on 02/06/23 was negative. Dysuria: denies Incomplete bladder emptying: denies Hematuria: denies Frequency: every 2 hours Urgency: mild Nocturia: 2x a night Stream: steady stream but weak Leaking: denies Post void dripping: denies Wearing pads/ Depends: denies Urge incontinence: denies Stress incontinence: denies Incontinence without Sensory Awareness: denies Abdominal pain: denies Flank pain: denies Sexual complaints: _ History of Present Illness staff HPI reviewed and agree. Review of Systems no fever, chills, malaise, myalgia. no rash/lesions. no chest pain, palpitations, or SOB. no abdominal pain, nausea, vomiting. no unilateral calf swelling, redness, pain Physical Exam Vitals & Measurements HR: 74(Peripheral) BP: 137/85 HT: 71 in HT: 180 cm WT: 109 kg WT: 239.8 lb BMI: 33.64 General: nontoxic, NAD Mouth: moist mucosa Lungs: normal respiratory effort Cardio: regular rate, good distal perfusion Abdomen: nondistended, no suprapubic distention or tenderness, no CVA tenderness Neurologic: Grossly normal Skin: No rashes or suspicious lesions Assessment/Plan Dr. Braxton pt 1. Gross hematuria (R31.0: Gross hematuria) S/p Cysto 06/11/17 - neg FISH, atypical urothelial cells on cytol. CT [place] con 10/11/22 [facility] [place] no renal or ureteral stones, no hydro. S/p Cysto 10/16/22 - neg. 10/16/22 - Cytol: rare atypical urothelial cells with degeneration, FISH: positive 02/06/23 - Cytol: neg for high grade urothelial carcinoma, FISH: neg Had an episode of gross hematuria 07/2022 with heavy lifting and had it intermittently for about a month. Was advised to complete a hematuria workup as above. Discussed results of imaging and repeat FISH/cytologies. Advised pt hematuria was likely an effect from radiation. Denies any gross hematuria since September. UA today negative for blood and infection. Discussed if pt were to experience gross hematuria in the next 6-12months, will need to obtain upper tract imaging in the form of ureteroscopy/pyelosco py since he has IV contrast allergy. Taking Finasteride 5 mg qd. will continue this. no bothersome side effects. 2. Personal history of prostate cancer (Z85.46: Personal history of malignant neoplasm of prostate) S/P TRUS/bx 05/24/00. S/P Brachytherapy 06/2011. PSA: 01/31/21 - <0.1 02/06/22 - <0.1 03/05/23 - <0.1 Discussed recent PSA results which remain low and stable. Will continue to monitor. Follow up with PSA in 1 year or sooner if needed. Pt understands and agrees with plan. Follow-up With When Contact Information ANJELICA CASTRO PA-C, URL [address] [place] [address] [phone] Additional Instructions: 1 yr w/ PSA Patient Education Prostate Cancer Screening Documentation recorded by the chris Patricio accurately reflects the services(s) I performed and decisions made by me. Authenticated by Anjelica Castro PA-C on 03/06/2023 15:45:47. IAbigail, personally scribed for Anjelica Castro PA-C on 03/06/2023 15:42:47. . Problem List/Past Medical History Ongoing Bloody stools BMI 34.0-34.9,adult BPH with urinary obstruction CAD (coronary artery disease) Frequent urination Gross hematuria History of colon polyps Hx of detention use of blood thinners Nocturia Obesity 29-OCT-2013 12:37:00<$> Obstructive sleep apnea Osteoarthritis Personal history of prostate cancer Post-void dribbling Urge incontinence Historical Coronary artery disease HTN (hypertension) Prostate cancer Procedure/Surgical History Cystourethroscopy with dilation of urethral stricture (10/16/2022), Endovenous laser ablation of varicose vein (02/15/2022), Total knee replacement (06/27/2021), Cystoscopy (06/11/2017), left total knee arthroplasty (04/13/2016), left shoulder arthroscopy with extensive glenohumeral debridement, subacromial decompression, partial distal clavicectomy, mini-open rotator cuff repair (02/23/2014), Brachytherapy (07/12/2011), Laser ablation of prostate (08/12/2007), Urodynamics (07/15/2007), Transrectal biopsy of prostate using ultrasound (US) guidance (05/24/2000), Cancer of prostate, Hernia, Sleep studies, Stented coronary artery... Medications aspirin 81 mg oral capsule, 81 mg= 1 cap(s), Oral, BID finasteride 5 mg Tab, 5 mg= 1 tab(s), Oral, Daily, 3 refills influenza virus vaccine, inactivated HIGH-DOSE preservative-free intramuscular suspension FT Rule H, 0.7 mL, IntraMuscular, Once, PRN Lipitor, 40 mg, Oral, Daily losartan 50 mg Tab, 50 mg= 1 (more content not included)... Normal [facility] Comment on above: Result Comment: Elec tronically Signed By: ANJELICA CASTRO PA-C\.br\Date and Time Signed: 03/06/23 15:46 EST\.br\Electronically Co-Signed By: Abigail Patricio\.br\Date and Time Co-Signed: 03/06/23 15:43 EST CHEMISTRYOrdered By: SYSTEM SYSTEM on 03-05-2023 Prostate specific Ag [Mass/Vol] ng/mL Normal 0.1 - 3.5 ng/mL [facility] [place] Comment on above: Interpretive Data: T he concentration of PSA determined by different manufacturers can vary due to differences in assay methods and reagent specificity. Values obtained from different assay methods cannot be used interchangeably. The methodology used for this result was chemiluminescence using [employer]'s Access Hybritech PSA reagent. Consent for Treatmenton Consent for Treatment [id number] .00TIFF Normal [facility] PSA Totalon 03-05-2023 Prostate specific Ag [Mass/Vol] ng/mL Normal 0.1-3.5 [facility] Comment on above: Result Comment: The concentration of PSA determined by different manufacturers can vary due to differences in assay methods and reagent specificity. Values obtained from different assay methods cannot be used interchangeably. The methodology used for this result was chemiluminescence using [employer]'s Access Hybritech PSA reagent. Performed By: #### 1 [id number] #### [facility] [address] [place] [address] UroVysion Fish and Urine Cyt o ([facility])on 02-12-2023 UVFISH & UC Diagnosis Info Invalid Interpretation Code [facility] Comment on above: Result Comment: A:Ur ine,Urine:Voided Diagnosis Summary - No evidence of high grade urothelial carcinoma identified. Adequate cellularity for evaluation. Diagnosis Summary - The UroVysion FISH study detected normal copy numbers for chromosomes 3, 7, 17, and 9p21. No evidence of aneuploidy for chromosomes 3, 7, or 17 or deletion of the 9p21 locus was found in cells present in this specimen. This test does not rule out the possibility of a low grade non-invasive papillary urothelial carcinoma. These findings should be correlated with cytology and cystoscopy results.* CPT 71532, 98139. Microscopic Notes - Microscopic Notes - Abnormal cells 9p21 deletions: Abnormal cells aneploid events: Total cells analyzed: Hematuria: Gross Description Site ID:A color Yellow fixative Alcohol Received 100 mls of clear yellow fluid with the patient's name and, Urine on the vial. Electronically signed by : on: 02/12/2023 11:43:23 Performed By: #### 1 [id number] #### [facility] [address] [place] [address] UroVysion Fish and Urine Cyt o ([facility])on 02-06-2023 [facility] Method of Extraction Voided Normal [facility] Comment on above: Performed By: #### 1 [id number] #### [facility] [address] [place] [address] [facility] Number of Jars 1 Invalid Interpretation Code [facility] Comment on above: Performed By: #### 1 [id number] #### [facility] [address] [place] [address] [facility] Specimen Urine Normal [facility] Comment on above: Performed By: #### 1 [id number] #### [facility] [address] [place] [address] [facility] Type of Service Technical Only Normal [facility] Comment on above: Performed By: #### 1 [id number] #### [facility] [address] [place] [address] Physician Orderon 01-30-2023 Physician Order [id number] .00CD:127 Normal [facility] Office Visit (Cardiology)on 12-17-2022 Follow-up visit Diagnoses/Problems Assessed Atherosclerosis of coronary artery (414.00) (I25.10) Sleep apnea (780.57) (G47.30) Hyperlipidemia (272.4) (E78.5) Essential hypertension (401.9) (I10) Deep vein thrombosis (453.40) (I82.409) Status post coronary angioplasty (V45.82) (Z98.61) Class 1 obesity with body mass index (BMI) of 34.0 to 34.9 in adult (278.00,V85.34) (E66.9,Z68.34) Never a smoker Orders Atherosclerosis of coronary artery Renew: Aspirin Adult Low Strength 81 MG Oral Tablet Delayed Release; take 2 tablets by mouth every day Atherosclerosis of coronary artery, Essential hypertension Renew: Losartan Potassium 50 MG Oral Tablet; TAKE 1 TABLET BY MOUTH EVERY DAY Atherosclerosis of coronary artery, Hyperlipidemia Renew: Atorvastatin Calcium 40 MG Oral Tablet; TAKE 1 TABLET BY MOUTH EVERY DAY AT BEDTIME Class 1 obesity with body mass index (BMI) of 34.0 to 34.9 in adult Healthy Weight Tips; Status:Complete - Retrospective Authorization; Done: [id number] Some eating tips that can help you lose weight.; Status:Complete - Retrospective Authorization; Done: [id number] SocHx: Never a smoker Tobacco Use Screening; Status:Complete; Done: [id number] Patient Instructions Please bring all medicines, vitamins, and herbal supplements with you when you come to the office. Prescriptions will not be filled unless you are compliant with your follow up appointments or have a follow up appointment scheduled as per instruction of your physician. Refills should be requested at the time of your visit. Follow up in 6 months Chief Complaint ESTRADA PFEIFFER is being seen for a 6 month follow-up of. Patient is in the office for follow-up for the problems noted below. He has had no events since he was last seen in the office back in May 2022. He denies any angina orthopnea PND or palpitations. He uses compression stockings since he had vein stripping surgery and previous DVT. His last blood work from May 2022. His examination apart from the weight issue with class I obesity was essentially unremarkable. His weight is 4 pounds below his last visits reading. ASSESSMENT AND PLAN: 1. Single-vessel angioplasty with bare-metal stent to the marginal in 2011. His risk factor under control. Will continue present medical therapy without changes. 2. Hypertension, presently under control. 3. Hyperlipidemia, on statin therapy, lipid profile is on target from recent testing 4. Class I obesity. Encouraged more weight control with exercise and diet. 5. Previous history of left lower extremity deep vein thrombosis following knee surgery with no recurrences. No need for long-term anticoagulation, he had venous stripping last year at [facility] 6. Sleep apnea on CPAP machine with compliance. Summer Deshpande MD, [facility] Surgical History Problems History of Cardiac catheterization History of Complete colonoscopy History of Knee replacement RIGHT AND LEFT History of Neck surgery History of Percutaneous transluminal coronary angioplasty History of Prostate surgery History of Vascular surgical procedure Current Meds Medication NameInstruction Aspirin Adult Low Strength 81 MG Oral Tablet Delayed Releasetake 2 tablets by mouth every day Atorvastatin Calcium 40 MG Oral TabletTAKE 1 TABLET BY MOUTH EVERY DAY AT BEDTIME Clindamycin HCl - 300 MG Oral CapsuleTAKE 2 CAPSULES 1 HOUR PRIOR TO DENTAL APPOINTMENT. Finasteride 5 MG Oral TabletTAKE 1 TABLET DAILY DIRECTED. Losartan Potassium 50 MG Oral TabletTAKE 1 TABLET BY MOUTH EVERY DAY Nitroglycerin 0.4 MG Sublingual Tablet SublingualPLACE 1 TABLET UNDER THE TONGUE EVERY 5 MINUTES FOR UP TO 3 DOSES NEEDED FOR CHEST PAIN.CALL 911 IF PAIN PERSISTS. Allergies Medication Penicillins Allergy; Hives;; Recorded By: Africa Benoit; 04/05/2021 7:37:38 AM Sulfa Drugs Allergy; Hives;; Recorded By: Africa Benoit; 04/05/2021 7:37:38 AM Iodine SOLN Allergy; Itching; Rash; Recorded By: Africa Benoit; 04/05/2021 7:37:38 AM NonMedication Seafood Shortness of breath; [place]; Recorded By: Marissa Guevara; 12/17/2022 1:49:59 PM Shellfish Recorded By: Africa Benoit; 04/05/2021 7:37:38 AM Social History Problems Caffeine use (V49.89) (Z78.9) 1-2 cups of coffee Never a smoker No alcohol use No illicit drug use Review of Systems Constitutional: not feeling tired. Cardiovascular: no intermittent leg claudication and as noted in HPI. Respiratory: no cough and no shortness of breath. Gastrointestinal: no change in bowel habits and no blood in stools. Integumentary: no skin rashes. Neurological: no seizures and no frequent falls. All other systems have been reviewed and are negative for complaint. Vitals Vital Signs Recorded: 17Dec2022 01:33PM Heart Rate54, R Radial Ersghagv443, RUE, Sitting Hrtdqstlj93, RUE, Sitting Height5 ft 11 in Tdmscp856 lb 12.8 oz BMI Litoogkjvj96.84 kg/m2 BSA Calculated2.32 Tobacco Useb) No F (more content not included)... Normal [facility] Tobacco Screening.on 023 Fall risk assessment a) No falls within the last year [facility] [address] DO Work Phone: Tobacco use status [facility] b) No -[facility] [address] DO Work Phone: [employer] 11-26-2022 Reminders - From: Sonya Ricks To: [facility] - Reminders/Recalls; Sent: 11/19/2022 15:18:50 EDT Show up: 11/19/2022 15:19:00 EDT Subject: Ambulatory Reminder Reminder/Recall 5 year colon recall forrest roper 11/07 first recall letter Patient called. He is not credentialed with Dr. Ugalde's insurance and is requesting a call back around January. Reminder placed in system. Normal [facility] Patient Letter FTon 2022 Patient [place] [facility] [place] 21, [place] ESTRADA PFEIFFER [address] [place] [address] : 1945 Dear Estrada, This is a reminder that you are due for an appointment with [facility]. Please contact our office at [phone] to schedule an appointment at your earliest convenience. Thank you, [facility] Normal [facility] UroVysion Fish and Urine Cyt o ([facility])on 10-19-2022 UVFISH & UC Diagnosis Info Invalid Interpretation Code [facility] Comment on above: Result Comment: A:Ur ine,Urine:Cystoscopy Diagnosis Summary - Rare atypical urothelial cells with degeneration. Adequate cellularity for evaluation. Diagnosis Summary - The UroVysion FISH study detected a positive profile. UroVysion FISH evaluates chromosomes 3, 7, 17, and 9p21 for aneuploid and deletion events associated with urothelial cell carcinoma. 157 cells were analyzed in this evaluation. Evidence of aneuploidy in at least 16 cells were found. These findings are most consistent with urothelial carcinoma. Less likely diagnosis includes other type of carcinoma or metastatic carcinoma involving genitourinary tract. These findings should be correlated with cytology and cystoscopy results.* CPT 55018, 18298. Microscopic Notes - Microscopic Notes - Abnormal cells 9p21 deletions: Abnormal cells aneploid events: 16 Total cells analyzed: 157 Hematuria: Gross Description Site ID:A color Yellow fixative Alcohol Received 90 mls of clear yellow fluid with the patient's name and, Urine on the vial. Electronically signed by : on: 10/19/2022 11:11:56 Performed By: #### 1 [id number] ####[facility] [id number] [place] [address] Consent for Procedure/Surger yon 10-16-2022 Consent for Procedure/Surgery [id number] 1.00CD:127 Normal [facility] Consent for Treatmenton 09-28 Consent for Treatment [id number] .00CD:127 Normal [facility] IntraOperative Documentson 0 10-16-2022 IntraOperative Documents [id number]:127 [facility] Main OR Intraoperative Recor don 10-16-2022 Main OR Intraoperative Record IntraOp Document Type FTURO Summary Primary Physician: Todd BRAXTON MD Finalized Date/Time: 10/16/22 09:24:11 Pt. Name: ESTRADA PFEIFFER Khang Trotter/Sex: 1945 Male Med Rec #: [id number] Physician: oTdd BRAXTON MD Financial #: [id number] Pt. Type: O Room/Bed: / Admit/Disch: 10/16/22 08:36:10 - Institution: Case Times FTURO Entry 1 Patient Times In Room 10/16/22 09:11:00 Out Room 10/16/22 09:23:00 Procedure Times Start 10/16/22 09:14:00 Stop 10/16/22 09:20:00 Anesthesia Times Last Modified By: Georgia Almonte RN 10/16/22 09:23:53 Case Attendance FTURO Entry 1 Entry 2 Entry 3 Case Attendee Todd BRAXTON MD, CST, Georgia Bowles RN Role Performed Surgeon - Primary Scrub - Primary Furniture Mover Helper - Primary Time In 10/16/22 09:11:00 10/16/22 09:11:00 10/16/22 09:11:00 Time Out 10/16/22 09:23:00 10/16/22 09:23:00 10/16/22 09:23:00 Procedure CYSTOSCOPY LOCAL(.) CYSTOSCOPY LOCAL(.) CYSTOSCOPY LOCAL(.) Comments Last Modified By: Suzy TAPIA, Georgia Almonte RN, Georgia Damon RN 10/16/22 09:24:07 10/16/22 09:24:07 10/16/22 09:24:07 Surgical Procedures FTURO Entry 1 Procedure Description Procedure CYSTOSCOPY LOCAL Modifiers . Surgeon Description CYSTOSCOPY WITH FISH AND CYTOLOGY Primary Procedure Yes Primary Surgeon Todd BRAXTON MD Start 10/16/22 09:14:00 Stop 10/16/22 09:20:00 Anesthesia Type Local Surgical Service Urology Wound Class 2 - Clean-Contaminated Last Modified By: Georgia Almonte RN 10/16/22 09:20:25 General Case Data FTURO Pre-Care Text: Classifies surgical wound, implements aseptic technique, initiates traffic control Entry 1 Case Information OR URO 1 FT Case Level None Wound Class 2 - Clean-Contaminated Specialty Urology Preop Diagnosis GROSS HEMATURIA HX Postop Same As Preop Yes PROSTATE CANCER Postop Diagnosis GROSS HEMATURIA HX Outcomes Met? Yes PROSTATE CANCER Last Modified By: Georgia Almonte RN 10/16/22 09:14:37 Post-Care Text: The patient is free from signs and symptoms of infection EU IntraOp - FTURO Pre-Care Text: Implements protective measures prior to operative or invasive procedure, confirms identity before the operative or invasive procedure, verifies operative procedure, surgical site, and laterality Entry 1 EU Perioperative Protocols Procedure(s) CYSTOSCOPY LOCAL(.) Patient Identity Birthday, ID Band Verified (select at Check, Patient least 2): Participation Consents / H and P HandP, Surgery/Procedure Operative Site N/A Verified Consent Marking Verified Surgical Site Yes Laterality Verified Yes Verified Procedure Verified Yes Correct Patient Yes Position Verified Availability Equipment, Medication Time Out Todd BRAXTON MD, Verified (If Participants Jenni Sanchez CST, Applicable) Georgia Almonte RN Time Out Complete 10/16/22 09:12:00 Allergies Reviewed? Yes Allergies Reviewed Self/Patient With Body Position Supine Prep Area PENIS Prep Agents Betadine Solution Skin. Condition Dry, Warm, Unable to Description UNABLE TO VISUALIZE DUE Visualize TO PATIENT PARTIALLY CLOTHED Additional FISH, Other (See Specimens Comment FISH AND CYTOLOGY Specimens Collected Comment) Vitals - EU Blood Pressure 165/65 Pulse 63 bpm Respirations 20 br/min SPO2 97 % EBL 0 IandO - EU Total Intake 0 mL Total Output 0 mL Outcomes Met? Yes Last Modified By: Georgia Almonte RN 10/16/22 09:16:31 Post-Care Text: The patient is free from signs and symptoms of injury caused by extraneous objects Sign Out FTURO Entry 1 Before Patient Leaves OR Nurse verbally Yes Nurse verbally Yes confirms with the confirms with the team the name of team that the procedure(s) instrument, sponge, recorded and needle counts are correct (or N/A) Nurse verbally Yes Nurse verbally Yes confirms with the confirms with the team how the team whether there specimen is labeled are any equipment (including patient problems to be name), if applicable addressed Sign Out Complete 10/16/22 09:20:00 Last Modified By: Georgia Almonte RN 10/16/22 09:20:24 Case Comments Finalized By: Georgia Almonte RN Document Signatures Signed By: Georgia Almonte RN 10/16/22 09:24 Normal [facility] Main OR Preoperative Recordo n 10-16-2022 Main OR Preoperative Record Holding Area Document Type FTURO Summary Primary Physician: Todd BRAXTON MD Finalized Date/Time: 10/16/22 09:17:01 Pt. Name: ESTRADA PFEIFFER/Sex: 1945 Male Med Rec #: [id number] Physician: Todd BRAXTON MD Financial #: [id number] Pt. Type: O Room/Bed: / Admit/Disch: 10/16/22 08:36:10 - Institution: Case Times Holding FTURO Pre-Care Text: Verifies consent for planned procedure, identifies individual values and wishes concerning care, includes family members in perioperative teaching Secures patient's records' belongings, and valuables, maintains patient's dignity and privacy, and maintains patient confidentiality Entry 1 In Holding 10/16/22 08:44:00 Outcomes Met? Yes Last Modified By: Paty Watkins LPN 10/16/22 08:44:42 Post-Care Text: The patient participates in decisions affecting his or her perioperative plan of care The patient's right to privacy is maintained Surgery Checklist FTURO Entry 1 Patient Birthday, ID Band Procedure Surgical Consent, With Identification: Check, Patient Verification: Patient Participation NPO after Midnight: n/a Date/Time: 10/16/22 08:46:00 Personal Items: Dentures, Glasses, Personal Items glasses, upper partial Jewelry Comment: plate, watch, rings x 2 Complaints of Pain: Yes Pain Comment: left hip area Skin Integrity Intact, [place], Warm, & Dry Vitals - EU Blood Pressure 165/65 Pulse 63 bpm Respirations 20 br/min SPO2 97 % RN Reviewed Yes Last Modified By: Georgia Almonte RN 10/16/22 09:17:00 General Comments: Temp 36.8 Finalized By: Georgia Almonte RN Document Signatures Signed By: Paty Watkins LPN 10/16/22 08:49 Georgia Almonte RN 10/16/22 09:17 Normal [facility] Operative Reporton Operative Report Patient: ESTRADA PFEIFFER Age: 77 years Sex: Male : 1945 Associated Diagnoses: None Author: Todd BRAXTON MD Procedure Operative Information Details: Date/ Time: 10/16/2022 09:26:00. Pre-Op Dx: Gross Hematuria - R31.0, Hx of Prostate CA - Z85.46. Post-Op Dx: Same. Anesthesia Type: Local. Procedure: Local Cystoscopy. Complications: None. Risks/Benefits/Inform ed Consent: Surgical risks, benefits, details of the procedure have been explained to the patient, Full informed consent has been obtained. Intraoperative Information Prepped: Patient is brought back to the endoscopy suite, Patient is placed in supine position, Patient prepped in the usual fashion with Betadine solution, 2% Xylocaine Jelly is placed per Urethra, After waiting several minutes the Cystoscope is introduced. The Urethra is: Normal. The Prostatic Urethra is: Unobstructed, Radiation changes with heightened vascularity.. The Bladder is: Trabeculated (Severe (3), Open diverticuli diffusely. No bladder tumors.). The ureteral orifices: Show efflux of clear urine. Specimens Removed: Voided specimen sent for FISH and Cytology test. Devices Implanted: None. Removal: Cystoscope is removed, The patient tolerated it well. Postoperative Information Discharge: Patient is discharged home with antibiotic coverage, Follow up arranged. If he develops gross hematuria in the near future, we then will have to do cystoscopy, fulguration, bilateral ureteroscopy and pyeloscopy under anesthesia since we have been unable to do a urogram due to his allergy to IV contrast. Normal [facility] Comment on above: Result Comment: Elec tronically Signed By: ANTHONY DOUGLASS, Todd Sexton\Date and Time Signed: 10/16/22 09:28 EDT Outpatient Surgery Discharge Instructionon 10-16-2022 Outpatient Surgery Discharge Instruction [id number]# 1.00CD:127 Normal [facility] UroVysion Fish and Urine Cyt o ([facility])on 10-16-2022 [facility] Method of Extraction Cystoscopy Normal [facility] Comment on above: Performed By: #### 1 [id number] ####[facility] [address] [place] [address] [facility] Number of Jars 1 Invalid Interpretation Code [facility] Comment on above: Performed By: #### 1 [id number] ####[facility] [address] [place] [address] [facility] Specimen Cystoscopy Normal [facility] Comment on above: Performed By: #### 1 [id number] ####[facility] [address] [place] [address] [facility] Type of Service Technical Only Normal [facility] Comment on above: Performed By: #### 1 [id number] ####[facility] [address] [place] [address] CT Abdomen/Pelvis w/o Contra ston 10-13-2022 CT Abdomen/Pelvis w/o Contrast Exam Date/Time: 10/11/2022 07:21 EDT Reason for Exam: gross hematuria;Hematuria Report IMPRESSION: NO OBSTRUCTIVE UROPATHY. NO ACUTE PATHOLOGY IN THE ABDOMEN OR PELVIS. EXAM: CT Abdomen/Pelvis w/o Contrast DATE:10/11/2022 7:05 AM CLINICAL HISTORY: Flank pain Hematuria, gross hematuria COMPARISON:None TECHNIQUE: Noncontrast CT scans of the kidneys ureters and bladder. It should be noted that study was appropriately performed without oral or IV contrast for consideration of obstructive uropathy. Sensitivity of this technique for alternative diagnosis that might explain the patient's symptoms however is limited. All CT scans at this facility use dose modulation, iterative reconstruction, and/or weight based dosing when appropriate to reduce radiation dose to as low as reasonably achievable. FINDINGS: No renal or ureteral stones. No hydronephrosis. Other findings on these noncontrast scans: Liver: Negative Spleen:Negative Pancreas:Negative Bowel:No obstruction, diverticulitis, or colitis. Appendix:There is no CT evidence for appendicitis. Nodes:No retroperitoneal, mesenteric or pelvic lymphadenopathy. Aorta:Negative. No aneurysm Peritoneum:There is no free fluid or free air. The abdominal wall is intact. Pelvis:CT left prostatic bed. No abnormal soft tissue mass. No local faiza disease. No free fluid Bones: L5 pars defects. No aggressive skeletal lesions Report Ordering Provider: , FINAL REPORT Dictated: 10/13/2022 9:06 am Rg Bocanegra MD Signed (Electronic Signature): 10/13/2022 9:06 am Signed by: Rg Bcoanegra MD Transcribed by: KALYANI Technologist: CAROLYNN Technical Comments Rectal Contrast Given? No Oral contrast amount in ml's: 0 Normal [facility] Consent for Treatmenton 09-27 Consent for Treatment [id number]#1 .00CD:127 Normal [facility] Pre-Certification Formon Pre-Certification Form [id number]#1 .00CD:127 Normal [facility] C Urineon 10-05-2022 Bacteria identified Cx Nom (U) Microbiology PROCEDURE: Urine Culture [R1] SOURCE: U Random BODY SITE: COLLECTED DATE/TIME: 10/03/2022 14:32 EDT RECEIVED DATE/TIME: 10/03/2022 18:11 EDT START DATE/TIME: 10/03/2022 18:11 EDT FREE TEXT SOURCE: ANJELICA CASTRO PA-C, PA-C, ANJELICA Meza FINAL REPORTS Final Report [] Verified Date/Time: 10/05/2022 11:31 EDT No growth at 2 days. Performing Locations R1: This test was performed at: [facility], [address] [place] [address], [phone] , [place], Normal [facility] Comment on above: Performed By: #### 2 [id number] ####[facility] [address] [place] [address] Patient Educationon 10-04-19 23 Patient Education Urology Hematuria, Adult Hematuria is blood in the urine. Blood may be visible in the urine, or it may be identified with a test. This condition can be caused by infections of the bladder, urethra, kidney, or prostate. Other possible causes include: ? Kidney stones. ? Cancer of the urinary tract. ? Too much calcium in the urine. ? Conditions that are passed from parent to child (inherited conditions). ? Exercise that requires a lot of energy. Infections can usually be treated with medicine, and a kidney stone usually will pass through your urine. If neither of these is the cause of your hematuria, more tests may be needed to identify the cause of your symptoms. It is very important to tell your health care provider about any blood in your urine, even if it is painless or the blood stops without treatment. Blood in the urine, when it happens and then stops and then happens again, can be a symptom of a very serious condition, including cancer. There is no pain in the initial stages of many urinary cancers. Follow these instructions at home: Medicines ? Take fgsg-lqt-wufmihm and prescription medicines only as told by your health care provider. ? If you were prescribed an antibiotic medicine, take it as told by your health care provider. Do not stop taking the antibiotic even if you start to feel better. Eating and drinking ? Drink enough fluid to keep your urine pale yellow. It is recommended that you drink 3?4 quarts (2.8?3.8 L) a day. If you have been diagnosed with an infection, drinking cranberry juice in addition to large amounts of water is recommended. ? Avoid caffeine, tea, and carbonated beverages. These tend to irritate the bladder. ? Avoid alcohol because it may irritate the prostate (in males). General instructions ? If you have been diagnosed with a kidney stone, follow your health care provider's instructions about straining your urine to catch the stone. ? Empty your bladder often. Avoid holding urine for long periods of time. ? If you are female: ? After a bowel movement, wipe from front to back and use each piece of toilet paper only once. ? Empty your bladder before and after sex. ? Pay attention to any changes in your symptoms. Tell your health care provider about any changes or any new symptoms. ? It is up to you to get the results of any tests. Ask your health care provider, or the department that is doing the test, when your results will be ready. ? Keep all follow-up visits. This is important. Contact a health care provider if: ? You develop back pain. ? You have a fever or chills. ? You have nausea or vomiting. ? Your symptoms do not improve after 3 days. ? Your symptoms get worse. Get help right away if: ? You develop severe vomiting and are unable to take medicine without vomiting. ? You develop severe pain in your back or abdomen even though you are taking medicine. ? You pass a large amount of blood in your urine. ? You pass blood clots in your urine. ? You feel very weak or like you might faint. ? You faint. Summary ? Hematuria is blood in the urine. It has many possible causes. ? It is very important that you tell your health care provider about any blood in your urine, even if it is painless or the blood stops without treatment. ? Take fwyo-hnd-wepczst and prescription medicines only as told by your health care provider. ? Drink enough fluid to keep your urine pale yellow. This information is not intended to replace advice given to you by your health care provider. Make sure you discuss any questions you have with your health care provider. Document Revised: 12/14/2020 Document Reviewed: 12/14/2020 [employer] Patient Education ? 2022 [employer]. Normal [facility] Pre-Certification Formon Pre-Certification Form [id number]# 1.00CD:127 Normal [facility] Pre-Certification Form [id number]# 1.00CD:127 [facility] Provider Letteron 10-03-2022 Provider Letter Rinku Encinas, III [address] [place] [address], [place] [address] Re: ESTRADA Regalado of : 1945 Dear Rinku Kohler III, DO ESTRADA ROMEO was evaluated at [facility] 10/03/2022 As this patient has been stable and doing well on current regimen, they will be released back to your care. We provided 1 year of refills on the patient?s current urologic medications: potassium citrate which he is taking for stone prevention. We would request that moving forward you provide additional refills. Should the patient develop new symptoms or worsening condition in the future, do not hesitate to refer them back. Thanks! Provider Signature: Anjelica Castro PA-C Physician Pul[employer] House Supervisor [facility] [address] [place] [address] [facility] Comment on above: Other Comment: ENTER ED ON WRONG PT. DISREGARD THIS LETTER. Urology Office/Clinic Noteon 10-03-2022 Urology Office/Clinic Note Chief Complaint Gross Hematuria HPI Staff PRW pt Pt is here today due to gross hematuria at the beginning of August. Last seen in our office by PRW 02/07/22 due to Hx of Prostate Cancer & BPH. S/P Brachytherapy 06/2011. *Finasteride 5mg QD therapy. Last Cysto 06/11/17 (NEG FISH done at that time) Pt does have 1yr PSA follow up scheduled w/PRW 01/2023. Intermittent visible blood in urine since beginning of August. Occasional blood clots. Lower back pain, ongoing for yrs. Denies Hx of Kidney Stones. ASA 81mg BID. has been taking since 2011. Denies Hx of smoking. Denies Family Hx of Bladder Cancer. Denies any changes in urinary patterns. History of Present Illness staff HPI reviewed and agree. Tests Reviewed: Reviewed UA. Review of Systems PHQ Score Initial Depression Screen Score: 0 no fever, chills, malaise, myalgia. no rash/lesions. no chest pain, palpitations, or SOB. no abdominal pain, nausea, vomiting. no unilateral calf swelling, redness, pain Physical Exam Vitals & Measurements HR: 68(Peripheral) RR: 16 BP: 132/74 HT: 71 in HT: 180 cm WT: 109 kg WT: 239.8 lb BMI: 33.64 General: nontoxic, NAD Mouth: moist mucosa Lungs: normal respiratory effort Cardio: regular rate, good distal perfusion Abdomen: nondistended, no suprapubic distention or tenderness, no CVA tenderness Neurologic: Grossly normal Skin: No rashes or suspicious lesions Assessment/Plan PRW pt. Pt here with today. 1. Gross hematuria (R31.0: Gross hematuria) FISH/cytol 06/07/17 - Cytol atypical urothelial cells. FISH neg. cysto at that time was neg. no recent upper tract imaging. pt has iodine allergy. Pt provided sample today but unable to run IO, light welsh red color. Pt first saw gross hematuria around mid July. Has been having intermittently since. Many days when there is no visible blood. Has had multiple gross hematuria episodes today. takes baby Aspirin bid. denies UTI sx. denies kidney stone sx. no difficulty urinating/straining. Discussed options. The patient is aware that a distinct etiology of the hematuria may not be clear upon conclusion of the workup. Will initiate hematuria workup to include upper urinary tract imaging, as well as evaluation of the urinary cells with urine cytology and possible a FISH test. A cystoscopy will be scheduled to rule out lower urinary tract pathology. The rationale for this workup has been discussed, and all questions have been answered. -Will schedule cysto with PRW. The risks and benefits for cystoscopy have been discussed. The risks include bleeding, infection, and irritation of the bladder and urinary channel, among others. The patient, after being informed of procedural details and after questions have been answered, wishes to proceed. Full informed consent has been obtained. Will order Local anesthesia. Prophy abx sent to [facility]. -Will send urine for cx and call if +. Abx should be sent to [facility]. -Schedule CT AP wo (iodine allergy) con. -Stop Aspirin for one day if pt has more than one gross hematuria episode in a day. then resume once bleeding clears. -Only present to ER if urine is dark, merlot colored/opaque, passing very large clots, unable to urinate, flu-like sxs. -Avoid activities that can manipulate the prostate. 2. Personal history of prostate cancer (Z85.46: Personal history of malignant neoplasm of prostate) PSA: 01/31/21 - 0.1 10/11/22 - 0.1 S/P Brachytherapy 06/2011. -Pt does have 1 yr PSA follow up scheduled w/PRW 01/2023. 3. BPH with urinary obstruction (N40.1: Benign prostatic hyperplasia with lower urinary tract symptoms) Finasteride 5 mg QD. pt continues on this medication. aside from the bleeding he has no urinary complaints. Follow-up With When Contact Information MATTHEW CASTRO, ANJELICA Meza, URL [address] [place] [place] [address] Additional Instructions: schedule cysto, CT scan Patient Education Hematuria, Adult Documentation recorded by the scribe Nilda Gallagher accurately reflects the services(s) I performed and decisions made by me. Authenticated by Anjelica Castro PA-C on 10/03/2022 14:44:59. I, Nilda Gallagher, personally scribed for NAVARRO Neal on 10/03/2022 14:28:02. . Problem List/Past Medical History Ongoing BMI 34.0-34.9,adult BPH with urinary obstruction CAD (coronary artery disease) Frequent urination Gross hematuria Hx of detention use of blood thinners Nocturia Obesity 29-OCT-2013 12:37:00<$> Obstructive sleep apnea Osteoarthritis Personal history of prostate cancer Post-void dribbling Urge incontinence Historical Coronary artery disease HTN (hypertension) Prostate cancer Procedure/Surgical History Endovenous laser ablation of varicose vein (02/15/2022), Total knee replacement (06/27/2021), Cystoscopy (06/11/2017), left total knee arthroplasty (04/13/2016), left shoulder arthroscopy with extensive glenohumeral clive (more content not included)... Normal [facility] Comment on above: Result Comment: Elec tronically Signed By: ANJELICA CASTRO PA-C\.br\Date and Time Signed: 10/03/22 14:45 EDT\.br\Electronically Co-Signed By: Nilda Gallagher\.br\Date and Time Co-Signed: 10/03/22 14:28 EDT Coding Summary.on 08-31-2022 Coding Summary. CD:[id number] W w+PGhlYWQ+OL6MGAEiO96 txRYxuA9lQ1CZLPcMAtie YHOMDOvACjAgtcXhZP1kq XNjZXJu IC8+EC9mNUWiLwzpgAHme 8F9yJN8R58kdz6fJAbozC Q4RHPaHnOzyneft8bhfUr 6IDcuNmluOyBt KNFcrP95YLW3jW10Mi25o BZeqAIrb1htxNc9UdHjAZ EqDKS8fDqdUBbzu7OhBIR lN94qdQMdn6T4 CVVspLmeaNThVeZqwDE0s I3qYWzndrbkw2csdpulLz e6mh38fEFph3O8tUD3R9Z jgaZ3DGRlqIKs VzjpmKWIuW4ittvsv8och dgnNmKcGBSqMKk1VQr6EX LshQvwYuXfIS56NOV4UBQ tmcIvL5EhNWXr mHhdNtN0b2I9Wx1IF3THS btiL9GDGEIHVKdokSD+PC 03lv29U4WlFwraUwd7HTA cGZP3yTT3wR5m LXLjPXdem3L5hQT0H3Gxi nLnbq3uy3bkGVPyYRzmP2 1lyJTsq1A2UFColRR9EZZ lxGkgCaYxuO07 Oyc+OWMegIrnb4KaWeknd 5iwp4wvqVn9HoqrHISayi CnvUpgDRK1l1CkEv1tSIS yeJC8pSP0wN9l EmXsIpG8ONfeV368ZdTee BWvZzewW15eR8RkuDC+PH TzBqs1VLWmjZjdLJ2bT2V hZGRpbmctbGVm jAhwBZ7pWZGfsttrNKWom C2cLINhK1r2PtJcLlA1YC hlJ4FiOWMslibiQj39eT2 dQlKiBzJ9SSua H6MkedA6SKAbwLObAGoqM XY0Q26cu9R3RZBmZCYkLT F9pNE3yZ6lxZbdyfatoYZ mdDsgdmVydGlj MPxjOUvrZ839CNHelYtdV kNvZGluZyBEYXRlOiAgMD UvMDUvMjAyMzwvdGQ+PHR aLTR9eHcdRJPf uDCvCLocNl1wjQfbmZmgS R1aVMCqftipCHGpwB0qDK GsrIEnvSbfKN3uZBUdpgx re880SsLjOLY8 VIAmhUJtQ5DjoB1iUxLsT OVeNMLyS7QxtJWnIUzqD7 76IQxlPsI7KHKqbyWwC9K sLWFsaWduOiB0 i3G9Rr0Pf8LyyalkK7Mvv NXgSyPeNblvTLb0R4CjYe wvdHI+CK94PZKwGU41LVc 9NHU3jAmtTJwe ROGmA1ZlwI0lFhQtBGWgQ GRkOyc+PHRhYmxlIHdpZH RoPScxMDAlJyBzdHlsZT0 rOr9pPODfEDJj dUiizCIvTtZbp8otDOMcZ TzwUS5faNrrY1ZnfHB2PY Kmd0f2Zh22U73kJ5XguOC +EBYjrEM4kDA1 sV6tJzVtLyR2GKnfU032O uKqkNIaWyksd3uml5beqZ m6BjF4PXIpanRvmSukFVE 8m6EyFr45J37d IHdpZHRoPSIxNSUiIHZhb Nkgpa9ktI6cSf3+PGNvbC J5uTD6pZ1rUoHxKrZ4IVf zW823VpTacZHb Rjmhc7nvq4cznEd5VwEoU LNqdlKmmJtaCGJ3d9NuFq 32W2IlcBlgg5TeWks8ed1 7jONnz5D7wJE2 R3HnVXIsehzqdJPmhWetW U9pRUDvglolDAAaaC9nWK UdD2a8BzSuNuW3DQhoD5O qwnW1GJGjbUSe HHJugUBGcA2drccql0pll eclDoWaYSZmMHb4ZLn7GC PlaWowRkDlWDD5RkM7XBH 8cLUisA5cwJtw navaqA5qUea+AWD4gUIcw KAWRZ5tYgzvmZJ+PHRkIH M9yYoyEYfiOCCrmY7eYOE kR2a5AiOlIwZ4 QGfhW6McqwI7LYVaqUYyZ PPduZUYpS1zjknou0pvui zyKjLrLLFtDDh0AIs6OQP saWduOiBsZWZ0 TqR8XML7pGPubR5hxJzuf fxsaA2yDju+QmlydGggRG C1CVh3L5IbJap5VYVxcBf qZC3jiRYoDPpx Kr8oaGrfaKzdCL8fKVEmo wryf436HdNik8glYQHytI YoGVhzZHU9K63xk3B7XDX iLVUfWKK5cCL6 bI3neOolybsnbXSveRhsq qGhaVriSFpwMVkeC659FJ UloYyfNiGaSYa8F5AaHmb 1TYVmiZluTM0w yQBqPFacYd8igXtyeCbmT S7zPPZcwbobh202RgGvm4 cwJYZckNUnMUcyKYG0N45 dm7Q1JBSjDERd UVY2mWN9uW2boCpaubgir GVmdDsgdmVydGljYWwtYW igO992XIWtuBvhHbAhgMy 7C2ZiPtv1LJEx kMtnGW2bwVWnJRrzAv5yl IhivFncKI1vNUTsmriru9 60VmGrs8lyIYKktNNdRYb bHXI7T47ud7Z9 NAZxHBWpIUU3dMC9kV3au GlnbjogbGVmdDsgdmVydG ynEVfbFTxqC987DBZsoDz nPlBhdGllbnQg MChrEVg1L2YkFmhqeNO+P T79ACRnUF75sXOyxJZwz8 nzwHg2AeXwMASdCWN6lRj mNFpgj2QlUNZm O05waTKhm8X1XARysDdbc YYoKuXqaOS2uD4bUEtiek ulk3ytgfocEvwjz0wswh9 9uV35R11yRUcv ZHRoPSIzMCUiIHZhbGlnb b0beR1mDp3+NGMmkGJ7fF T1hF7iQUJaOiF0DMxfM76 9InRvcCIvPjxj o5fon2pehKs5JhJ1NOMew dFcqYnaTSA7d5FiUo44S2 9sIHdpZHRoPSIyMCUiIHZ kwUxbrv3zyD5e Ii8+QZDydXV4bGY1dG8zN sSeMnD4CPfgE012XpMqsY FqNylyV50nZ4JffLI+PHR uBvm1RVFiiDjh PP2kbQMgIBblPe6bEVO6U iUiApRnYZcvS0LgAMBauu zknyrbeGF5KGEgYMGkfS1 1Zf8upTujPOLc jJXEhW7ajuast2mthqkxH xGiIOStFRo1DFq8BZNatT nvDfOxCXH9OjJ3VUI6cTY qjQ0uhYkdlued mB9pX2SzULCevisoZe10n G8rXeVvPzF7YMydVev+R0 TILXatASOTE80BLlJHBF2 2LN71lGMww5L6 xXE6Y4UfNLIevubxztbdw CC8NJBtSEFzdZ02tFPzVR ufWe0sk0P1t734JERyTRM eoV99Lv3mmXtc FZTgwHSLoY0yktkuz4aqb uilZhYcQARqQFc8UDj5SK XpzSuuXzFwCHY2HzF7EPL 4uJXevZ4ezJsz zledvS5oVhu+MDEvMTIvM Ia9IgsuvSB+YWBiTJL9sK laYXtgDBGzvZ4nPZMqQ7c 0NoLzCwD0PMao V8QiTNXormhiBi00kI1qK jTuAuH5AXciX7QphgW9ZF UfuDTgOFafXXU1M58bq1N 0YWKdJSXvISF4 rGN1iM9tyAsqxdnrnFFfo DsgdmVydGljYWwtYWxpZ2 89LKNgjIgdNel6NUnkUEG oLK15VM06iBQm a2P4vWC8O3SrGULkqiklb nimiTV9CYBsPQYkfN86vR UwNIqjKl9ct6Z9t224LQZ dVQRoaN46Pm2q zVwvXQBvhMAHcN1agmarn 2qaimacDoPmKHCfVAm6NY t3BKBwgUypXqSeASM9SaV 1ZSQ3dCEwrV7h bRyjblfrvE6zBfe+TWFsZ TwvdGQ+QTToBZS7oDeqTF orJREwdC3lMSCfR5g0PrL oHjA7DOdnT3Oi TNKxdcjvRt75eO5iMiJbO nX8ATmvA1LyxcC2LXWsfC JcZCcbWLP9I84bz3D1YEX lLHQyMUT3bEH7 dF4huDcrwnoswBWlaIzix dFrwBloOBifUUduY904LQ TgzLwkDpMrHKPkHL5cbLf vdGQ+FU20ki52 U3FgHzsfFrl9IQFuCGT0c ZB3cT8qPWQdAAqfm5E6sR W3K4AaliSvfy7be3bkCCN dAWxjM04svBCr z7W6HFDeeSG8EQZtfFgxG uPvjK91Asu+PGNvbGdyb3 SsWvedr4mab4oitXc0UnS wJSIgdmFsaWdu DON7y3EuNp39K36iRMukC HRoPSIzMCUiIHZhbGlnbj 7xpR3wAh6+AZSwwRR7tPC 3mO9nJzQaGcN8 GCfhM761AcMehUDnKzqph 2esr9epgCn2DzJwTEUtsj SpxBdaAZQ0q2EeSq96F4I zfIxrh3AfJao3 ti84pTBpy9N1aHJ8H2LqO QUwemoamVTauXegYF9zGH UpdkeiWOKcxX6kTZYwZ2o 3OmSuXpW8VMei O7DkjtC7VFNyqPYoIPMta LRIzP1gfbnbp1yfdxklYd YsFCViWGa5VSb0EYOsfQj zPuMeDOT5PxR2 MVF5hHAmuU8zjFochvthy G9wOyc+QYi8r7unyKNnFI 1skZM0AZ23LP70dDNxs3Z 5fJX6I6JoKTFn anwbvbtajLI7QQBdCWOvb F03Fe4zmRzrGu1wTSLoRM Z9PSGkvRPoY5RetA6eSxG rYSHoWGDmI8Ie xKBgVVwzR081NGdjEeJ8Q EMpjcEvU9ZnJKSpqOihUi R6j9Z0Hq5FYR40NZ03VQ1 0jUMiz8O8jRY0 O2XeCRMqqtlmkbtueBF2K JDdIREzmV33Ol8ukEfqOh 4gHXSpNGI8QQRzwBNoZ2C elI8qHjTqUSSh GCLpI6YsnZTdHKxfY503A BslMaQ8LLAeyrWwP4UhVY QucRwfYiK7t3T2Bh9XTs9 2FC60AV86lPKs s0J9eRA7I5NmAPMdgefmc oputSU4FVNsQDHncU76Mh 8tkHehMz0gWCRyILG1GQK kjTDjH1CofS3r HkSwLSXsHTHqT9AfsAHcH FivO152MMpnOvK7DVNigk VdA4DdOTImiJtiDyO0i7J 9Qk0YDTkskrv8 A9IoOzcdeZK+KM15HTIjW T88kFXosNMjv9cqgDu0Tz JnHBPbOLE5sGcqXVuzx5P pOKLjL20wcNFk j2L2WHJb (more content not included)... [facility] Coding Summary. CD:[id number] W w+PGhlYWQ+LI8OQHXbK63 kwWIksJ3AG1iFYY3LFIPW FAJYUG8HEA3iqCS8UKmtB 2VybiAv ZmpuxRTnMA95CFk0NLX1y UouICzcmK8rqTThX2f1Fj OxXU95hC57VXodJBBbEtF 3LjZpbjsgbWFy U8wlWoKneAWzNhu+PHRhY mxlIHdpZHRoPScxMDAlJy PurRslWM7aXd0tPJRiGBA vbGxhcHNlOiBj a8ynAZEjSWejKP6cnWfcL 7SxgKS4YPVxu7l8Jw99cU I+TJJdNBA6xHakCIjfy80 7DiEqb4qkOKC4 hBTtVWvgKSO6G61ex3Q2Z RSaFUQvTZJ3tKQ8oX9mpI xniduhW0EfnEGzWkV7IRR 7jYGcmO3jfJwy ffqsdK1aVcf+A70IPS8JS LGVGP6RGzn2A8AvUbmrxQ I+LM94ERBdQD06wXKtaEG vn1hurVa6LpGl BEAeTXT7nQegVKkol1JaT EYdB24hmOVlw5D1EBFjlG gyuRIjTdZojEC2aH5nKQi udjuiw2smnukf Fdkwm4hnsm21pT64L90mN HepPGLqAWY0LIQiTMZxtV iebm9quK2iVc0+IHgpq8s rg0znaSr8LhEy EHLwtgBkzAixBJW3y0UyU p17U8QwnVuaj6XgKck9xx 25iXPbk2U7qJF1QJzzEOM pkZ3nWOroDbF2 POBmHcHqsY25xKRbWChuU z2gdGwitYboDY9qTNAkdx xbKNCfeF5rWNMolPLmvQj eVB4kIBBoetgi g618EdYgXWW0GXJszKEtM 5HcmT7gNjJfKQOkJGQyT0 GymHEaHQnpC008KZulGnA 7KBBgmcBdP2To OYYwkHzhKfA2l6U1Ka4Tm 7BvbeduMJP9EQepEYOmHs GlQfTuKoS0H7UiWyl8DQJ ouQgtLD3mR0Ql VTRqwkegqjubzIG1JIBhT ARusM71vAVdJLmcBt2de5 D6w883OCJgNHWyzJ82Jp4 udDogMTBwdCBU wL7xbnikq0jsositFaFyC IOjEWm2SEw1LYWrpBdzIu LbIIC0FhL2EHF5cGBzwK4 ugBhpxppspF4u Oyc+A78hlY6gTNY9AHC3y jscYEOmyyMqSU47KQ26O4 RyPjwvdGFibGU+PGRpdiB noLdnUI7oGvJc p9eaq1IcMGfqY8IeZVVjU PxdVch1YAUpZGM0qZL5qI 2lWZZoFSwol2Y3dDG5S3T ncnOxfh5gw5ob EOLwVWivS27hdPOrq5U6F NJgxKY0AZMwbGacYyCfqK 93Oyc+DORhiOqqm5GcTre xh4zqg4ptxOv0 IrDwVWWpkvLymCslCTW9m 9SiOp17L91fIFstGNEhTI MhJZXpWNPaoNbmoe8psY7 wIi8+PGNvbCB3 cWP3jX8tAKCbMxQ3IGftV 803LlKgwZPlCvwbz9hlu5 vadKk7RiGaRRFtcbCnmFd tRRF2o2DuNt60 T34dWTcfJWWcVVRvMCDkV AVlqOegli7bzT6gOg0+PC 0qv3nrrl79cL78sSW+PHR iNOA1tJwtYCkz HYAfrK5nZZtpCvO3OWArJ mLbfS77kTGtIEvmGs9opJ mqgHtcKS9lOSWedlnhd69 0HpKdf5ctMVUb gSKgZSkaGNL9M21ie6A7B KSeJWQzBFJ7pOX7oY8pdC lnbjogbGVmdDsgdmVydGl wOUedVStvJ478 IHRvcDsnPlBhdGllbnQgT tNvAJp0S0QiPwb9TJFydY dkJH0hkTKrNBpcVu2enJe qqOtgSD4sRINh jmego136IfTsj3lzIMHyo QFwULboZTD4J20rs4W2NZ TzXCEtWYT1yLC9wV8gyTv nbjogbGVmdDsg rpPcfUhwMFuoDTtqL398P HRvcDsnPkJpcnRoIERhdG Z6SB50UB34fHBbv8S2jHZ 9C7HnQQYwlxpf cewvuRQ2WTZoIIFokM01L u5pkEweUu7kCUCpTBW0YC AyrUQxG4NbqN7rHbIiDOD nJRZrK9JhoJNo UCbxP076IGvaXuX5ITRpy xAhI5AxANQlbTecIdM3f7 T3Bl4PL5M8OH08VU16kLF po2Y1hAL7T2Yu WHXnwwegkhalnVO7SOZbA PRwsL80Iq1loByfMx3zDS EtLLY9ZZDzuNMtX1DdlV2 yOiAjMDAwMDAw N7AslLSvCTsaT033QNwgZ eK7OMNwupZdC3SxMWWjrE avNxL7o1B4Oh4RNEh5TR0 4GS12jYPfg1U1 yUO5F6EdJFUlbthrskcay QR4MMItTJSxyD66Yc8xgB dfPp8vFDOgCWO2OTIlnLB eD7JtxK3jSxOr RBHxGPGkP3KkgJAvHPppB 304IMcuSsI6TQKxsgNbX4 IbVPEkxCzaUoU5e8N6Pn5 JQDZmCC67KQD0 kPN8YA03YI15L4OuYezsa GFibGU+PHRhYmxlIHdpZH RoPScxMDAlJyBzdHlsZT0 pHw5iRJItDEPs dIfvtTEyGuQzb8xfTJTiD GgqQH7eqVtjL1VhnIT9TN Wnm5a0Iv22I34gC0YwrYS +LTImvAS1gQU9 gK5bYkOqLxZ1LAkmY472U yYjtORfNnhai3hpg2jenC e8NnU3VQXknyKcsFlpOQQ 0q1VaCn01F65r IHdpZHRoPSIxNSUiIHZhb Uhvuo1cvO8tRf7+PGNvbC D0sNP3lM3tJcDxCsE5XTq hF775CgPclCQh Yzvfg6okr7fumPp4UjHlQ NBafeHhbYvxCAL7k9VmUj 50Q9UvpWxaq0DvLvu1ht5 9vYJtu1I6tYZ8 Q2NwDSFsouzlsOOtvBfsB Z3lAZTdyluyEVJypV5hQI PaS2h7EgBaVlI4AMjdS9H icoH2MKKrdXTd OLptZGR0Q83az0A9JKSdO HZqLYI2eTW5hA5xtGncto ogbGVmdDsgdmVydGljYWw hWBdqS380VQMo wDeeXKAwnR8qWLActOVbw FgaDO2bOTOdcwykFizKCT gXRAHSFH9KRPToMVdmmML +DDVgYUD7tYkn TPrlKLNyuK9dWYAcX9z8S oBmNbW1GItzI9IlDSKveu jhVb47jC5gIlEqCiJ7QGs vP6MpciF0JLYp hRAnPYqaKPO0N09ra0J3I ALnBVDuJES8nAZ2eS1rdS lnbjogbGVmdDsgdmVydGl sZOfxBXntM580 XSQwxQbiIxJtStPuVuZ5W Uu4R1DuYza5CSMsjSpgIG 9knMBtMNnbUo8ceBwruSx nOX3wTWPylyoa HEQxrJ8jFNInjABffIlzU H1oKYJtfgzrs614KpWhSI V9KVGfoXGrJ8CbjI6aIvA aGCPjRRSoT7Vs oNBoTElyY283TZzdOpB8D QVlxnDpB7DgOQVqjJdaMo E2e6H3Mq43QwGLNKOsgxg vdGQ+PHRkIHN0 pCpuMOtdWVMipI7cXFQvA 8p1GdVaMsY1LGriM1EyNX UbhojdJh82fB5oDhSfYvK 5JQdgF3OlbkL1 BFYltDYxZCltHPI0Z35pp 2N2POIyCBEkYAC8kCB1aW 1hbGlnbjogbGVmdDsgdmV ydGljYWwtYWxp C685XXDzyPjsPb2jnOT8P 7WqFti7SWHqqPlxXQ1jpL QfPGmjPr8ggOxikMmfFK3 wNTBpbjtwYWRk qB8eKSJygWMrbEotTQ1mO HSiklgzz638QwZwTEV6AK MoiWHhW2GlkD6vXiYyMDY lXJHdV8MfoYUy AEhpH274ZVqcHiL9SZMba rBqP1SwGNCnkVpjHzS4a4 P3Vi4OiHXtS8XmO6j7I8I kPjwvdHI+PC90 PDYbVP12wHFzfUHhu3wzg Bx4RgZoOVFqKQI8wInqGD yrn9ZcWJSjN07aoRVuq8F 6IGNvbGxhcHNl RoRzsTK1hX0zWHlduyubf 5gnjmrsSmhsk8gdyj38eH 63S16eREpwFOKfXTOeIKY hGDMwgDeqxn1v cI6uNb4+BUUaaSV6rFC6c N5vAiAvReP3IOqxP876Gt XecJImWksrn5ual0zinPn 9IjIwJSIgdmFs bJjrDLY2x5RlGb79L21cN HdpZHRoPSIyMCUiIHZhbG qknh0iyU1bYd7+WK6bf2n rwz09qJ67eQM+ BFOjTTQ9tCeiPTctFJXjx O3vRCdzHpE7ZZDaWaAcoU 52vULtPLsgAf0wpRxbmYy vRW9uBMWywwdl l270MgTzk3foZTKlsNWtR AnjUTG6T27uk0V9VTZwYS XqYQL3kOK8dY3tzPojfig gbGVmdDsgdmVy gLeaLJcuCGgtB887TEYat ZixBnLpyKHgO6aopeTXST 1lOjwvdGQ+GMHoWYT6jWh lTRseLHXnvL9r NMCiG7r1JfAnNcS4JPybY 5CtccC9XEPfsVUyZBRffS DUyD1qyrqvl6otejljWkC zMZJiEBa8TBt6 BNDeySagJvMiIUK2PcW1F IM0cFVrnE5hlBvqpnhxeW 9wOyc+RklOOjwvdGQ+PHR uYIC2pDnsPXsi JJWcgV6yGYBqE6x6GhJgB gK5RYfiM6BaupE1YSExqB ClXKNfhROEkR3kslfyg0i vcjogIzAwMDAw FFy2DUz3ZNUooYydQkGfE RC6NfM7PPP9iDMcnZ2uoO kibmilrP7fVyw+TVJOOjw vdGQ+PHRkIHN0 aHhwBMqjFFYxpB8hRGEeA 5i0VdMmYlS9YBelB2Bzjs X4KFIzwFImOGNguJZUjX0 aerlgd7tyzyff IuXsKCEaFSj2GUl4AREkn HazKnRqRBH5SkM4RMS4rZ SnpJ3qcQmyfzxfmV1xPgx +SSG1NNC8JD67 RF67R6HpDqdioASgnCM+P HRhYmxlIHdpZHRoPScxMD CrIqSoqCgwLR6xLx4wBQR yLWNvbGxhcHNl XrUio1xi (more content not included)... Normal [facility] Coding Summary.on 07-10-2022 Coding Summary. CD:[id number] G h0bWw+PGhlYWQ+BJ0ILUX mH31hwTLgoQ2bU2EKKFgB SywgQVBQTElOSyIgbmFtZ A0tkKOtUYVh IC8+CK1bZPNaMprnlNJqx 6F1eGZ8S43lfe2qKKucxL J7VPBqNhGhvrgjl6zdnIj 6IDcuNmluOyBt XTHiqL12HME6bI39Hd69r JNzbJGgg0mypOp7WkFjNM TqXER4vFfhOFwru2WcNMV jM25tkLXjk0D5 GQUjiUctcUHnOjBlyKP3f G3uZUrjmkypn3vukyunFb k1jl54tINia0I3nHU0W7H bxwX4WGCyvBWt PezugPJAjE6llqycz9jic hymZoMqLGVwNJi9EGx3VB KfdPfoOnLtAR40GHN5BNT iliYaG2QdMMWa qSneHvJ2o9Q2Te7QW6DDZ rrmK6LNIRGFRVtfvHK+PC 96jp64Q0KjJjhfYme3BIC bJZC8wRJ4kW1a CUTsECetb2D8vSM6D2Qxl fLpdi5gt8buEXPnKBnmV8 3rlNSfp2J0JLXglZM0AWR gcYvwSzHzzM56 Oyc+RAGosGaoc6DfOmcto 2pbx3szaGo8LwznBEUmkj XfjPmrMEA3a8UwSq6aHVT bqVA0rMY7eF0w EqGxXjA0VVhwU224LvMfj NKuDfuwA39sA9SjbMH+PH LfMye1AVKqdJnfUK3vY4B hZGRpbmctbGVm zNjdOO1rIZIzgouuWHVnn K5rLHNvD7f5LcJtXjX5KL niC3QlLOCmeljrQs83kL9 cZrHkAhI9YCcw I1IimgG3FWByfBExFHsaL YX9Y19mt9A6HSAzZPWdSM W8qYF9yG0azOmmahsmxFN mdDsgdmVydGlj VKiiCIocA038OUHjeAipJ kNvZGluZyBEYXRlOiAgMD MvMTQvMjAyMzwvdGQ+PHR oJPQ8gYhiAIYo zEKeSCopQz3wnHrgsIkrE T2kSOJalwskEMPleJ8eVA WwbEEzrIehJH9qCHIlloq ao044UrKeVJA6 FXCsuIXwZ5IcdB3pOfToM CZsOMVuW1RjdBLiGKcaC3 06ERmyElQ2XYMdbkPiH7V sLWFsaWduOiB0 j0N8Ln1Oc7HzhcdvT6Khp FZoGuNdEpyuWYw1A8KoUw wvdHI+HA99MWDbIZ94CKv 8FED6zZymZLzn NNIrL4HowO9nAwNpSSGcA GRkOyc+PHRhYmxlIHdpZH RoPScxMDAlJyBzdHlsZT0 mGd1iVDUvMVRf iMxndMPvEeNtd4duJEJiM OlrHS8aqWldZ4JgdVY8SB Bxh7b6Dx36S64rC1BqtZJ +UZXepFG5vPR1 fF6eNhTwOiB8CFnvT262F pBfsYOxAkpmb3hmj8yrqX p9RdG7PBHfmbUbgIbfIAV 0y6RcPh84O65a IHdpZHRoPSIxNSUiIHZhb Gbdmi3aqI8jUa8+PGNvbC H5gPP2wS0uIaKuJkY7DHh mK454WcDhdRMr Qlgwy1sbm1oobZs8JkTmR UThufBuvJjjIID6x4VvIu 36W3QqaPuld4JnKcm6ck4 7yZLox3G4aON2 A7BeNFAtxxcaaIGvlHeeO Z6nZFAzuhefXRNrgT1yXX ToD5z1LiKkQwQ9RAumJ4U iojU8FQZtrCUj GUAmgTXIlF0eclzzu6cal nyjKeUuOFIkZNh9KCw2NG SsyQydFbOsTZF4RwF1YHV 0aIZipP2bxMrw ctdhaQ7dIcp+AEW9dCLti KLLAK4sCajxgKT+PHRkIH Z5kAsmGHvcPOJzhX6qDKZ sL9o0FaSsBbH4 JDqyV7UqmgF0KYSwcNXwP AZfqWHIhL9cuspsp1zimu ejDrPvIPXuPLq5LXn6DJZ saWduOiBsZWZ0 AdX1IQO7aIMzfP1ctRfow epilQ0vSxk+QmlydGggRG H4ZMh2R0GhIzi2HJOoaDi vOS4ghNMdHMlt Jz6grFgegEtqPA0rSBNmx swzo089SkJeo8mmVGYvrC OjFJgzVRX2E47iu0L4SNY mZMGiNQU9xJH0 oU3rhDvlokfrkBXprVnpk fKaqPlrADsfVIsxB146LW LcjEcgYzNbRZi3U2UbGof 3OFTzgUqgEX3h aYUnTHzoUw1leDtzeKxjX Y3eIUIbzvqth050WsAut2 eiHNIoiZZnKBcxFXO1Y82 tl9C2SXRxKDKg PBV4lIJ1aE2jyDvanunnm GVmdDsgdmVydGljYWwtYW wkK673MJWdnKbdDpCwzVx 1Z2SiSow1VOWe gCetRQ2cvXRxXElcVl2cd JuszWpdGC0iMWBtkkewy7 84PzUqb9plFLGtnZZaASv tMDN3H23sc7S1 JOLaJHDkRWN9fHF0zK3qg GlnbjogbGVmdDsgdmVydG mdRGpcMWojJ756RNMezEj nPlBhdGllbnQg QDcpBDp6D1PhPfefyMR+P I04YMMcLZ60kKDktBRij4 wjfFn1FmGpQNRvWPC1pBx rPKlqv8HwCSRk W12bdECup8I3KMDosZmha DFqOpQfjFJ6fQ4rPYrogb xot3rcavxgXzaiq7nzrf7 4wE13O55eOVbm ZHRoPSIzMCUiIHZhbGlnb t8stL6sDb2+LUHenQR0uY J6wD3gJCCqTlR8FNfgU38 9InRvcCIvPjxj r6eoy2zhbMi5JfL2INJpc zWwwHulERF6l6LaSe04Q5 9sIHdpZHRoPSIyMCUiIHZ xuCfnjp4kpR5l Ii8+AUMveKJ4uCH7bQ6wW sKzCxE1LIeyV194BiSzzI WgGwdlZ32sU5SirVA+PHR oHgj5WKDosNoj RC7mrVKkROlbFp5nLVN1F oSiLaNcMFdiV9ZuUTSksy raqzpfoVB1YVNcRSAexO9 0Zf2gjJqbAIRr mUWEeB0dmnaha6wjkrztZ qOkVXAoRWg8OAj7TBHonV swBhBkUOR2VzV0DSZ4sAY mbW2rqUtfkdab vW8oU1IkTQFayzyuEy91i G7rKtStVqK8SMdxJkn+R0 ABXOdtDVJDQ15TEiWXUG5 5UF32wWBqs9F3 kJO1W7LyFVMwlesymtfpe JP4CGGaZXVbdC93dLLsND geXv0xa1W4r254JEYtJZS tcV95Dk1zlNnw BGZdkGLQqF1xatcst7pmg omkTlIfBQPxCBh1YUb0OC DbhAycQaDnUOX2ZvX9IIF 5bCJqxJ6yfCus qjxprT8xXfp+MDEvMTIvM Nz0NlbwvQS+WOXbLEX7jU usGUqdNAXsoB1gOKZmR5u 2FjZhFyO5PWey S6NgBNPeybfiAs98jR9hV hNmJqW1XYymR5WquoV6NZ PpnADlXGvhABS3A68cz5W 7NJFaJTBmVSF8 jXH9kT8hzVhymtdmjCPyd DsgdmVydGljYWwtYWxpZ2 56VWAxqMbbImf0SDuwWHT aBD75GF71fZIa y7F4oUX9T5NvUGKuajhjd fhqpAJ3KLZbBAFvqR59hV ItHVgzFo1vz9D1p550XOS gBZBmpO67Rx6a rGolXFCajLFBrW3lairuu 7lfotxiDxRaRACoKZp0HG g2HVRmyMheQyEhCVI0BeE 7UVM2jIYmrU9m oVelixikfB0oUbi+TWFsZ TwvdGQ+NGRrORH4jRmeWD ktDWFbzR3mTIRuE7q1FqD sHqP3AZakR3Fp UNWrxkdfKd94pD1jYbXwV uR9EOehF6ArtaH5KFVmiV MkYNuiKTT8A06je6D5NVD lQSEuHTM7dPY3 lE3teGrqufwbxXYadTbeq cBucLylDUirOEbyA214UH MvdLdjYm55sTYijSziosB 6F7BiVtmqcNX+ AF30ISBdAH81iEXjhITbx 3oarMo4QnQkCEClEKM0hJ daTQzrb3BsXUZeT36jaRW pf6X8SCWosIhp xXLdBtDykFM4qV1oUBrab chnw8xqawhsZqfhe1jxgy 28iX94U44wWCrjWGXyTGP zMCUiIHZhbGln jf2vyC5vBb0+WZSmxOR7l KE2tS0gRdRkKvI8LYrhO9 94WpWkjJPjUcvku0sbc3c hyUb3VuPdUIWl ahPmuNsvUJL4a3RiCk65D 29sIHdpZHRoPSIyMCUiIH DgbSsfkd8xeS3yJi6+PC9 vc9jamg18kC98 dHI+ETIdCNB1vKzdABbdI DHogT5bLSeoJkV4LBMqYq TrbM99lGRtPUnmNu3esFw ohVhbJT6vOXBh ncmtu154EtNga7flZWLge HMkXPqeSIW9O46je8S0DZ GjULCcUNZ6xJL9wA5iyMh nbjogbGVmdDsg rtKxjWpnWTwjGPumU459K XEmjYojXoByyBXtB2fmwn YXDP2qRzmrfNU+PHRkIHN 0eWxlPSdwYWRk pK1iLGCjE3a7DnHfLmZ6T UnaA1HwdjW7PYLdmTSnRK QejJVWuW5doszrq4cttwx gIzAwMDAwMDt0 FXt9EDSruOpvKbEuFLS7D hD8RMT4iXAxnN7zfIcujf nhwS5kFaq+RklOOjwvdGQ +RALkSFP3eAmu YVxuGNNqlF3xRSSbI8e6Y jDdEaK1SUplB2OyjeX8UZ RgyCUhIDRkgEDQtI0keok hq7nhfhjpBpOs KYUmCAc5QMd2NYZgoTduG mCmVOK5BeN6XXR6gIXtxF 2nwSigprbehE6gQwd+TVJ OOjwvdGQ+PHRk BYJ2pOneGAgvKKVsnA4rF CPeZ8a9OeNmUmD1SZzcY1 WwgjO3ZNFnuHZwBNOynLE WwA9lrlkbb7if bigjEtExAPPoOAe4OYi3I WPqzZwpQnDrKAC8IyJ2PT G8oHAueS7qkYscjbkmqY8 wOyc+KJK9MPE2 FW71VC14B0RcHuwsdBPfs +PHRhYmxlIHdpZHRoPS vlRRPqRvAarFplJR9hJw8 yZGVyLWNvbGxh cHNl (more content not included)... Normal [facility] MRI Shoulder w/o Contrast Jessica paige 07-03-2022 MRI Shoulder w/o Contrast Right Exam Date/Time: 07/02/2022 20:10 EST Reason for Exam: [id number] Report IMPRESSION: Full-thickness rotator cuff tearing involving entire supraspinatus, entire infraspinatus, and possibly portion of subscapularis. Associated muscle changes as discussed. Rotator cuff arthropathy. Edema signal involving teres minor musculature with fatty infiltration. Medial perching of the long head biceps tendon with intra-articular tendinosis and/or partial tearing. EXAMINATION: MRI Shoulder w/o Contrast Right HISTORY: Right shoulder pain with decreased range of motion. Injury 2 weeks ago. TECHNIQUE: Routine non-contrast MRI of the shoulder , right side COMPARISON: Radiographs 06/24/2022. RESULT: Some limitations from motion. Within these limits: Rotator Cuff Tendons: Full-thickness tearing involving entire supraspinatus and entire infraspinatus, with medial retraction of some fibers to near the glenohumeral joint, with underlying tendinosis. Possible full-thickness tearing involving some more superior fibers of subscapularis, otherwise subscapularis appears intact with underlying tendinosis. Teres minor grossly intact. Long Head Biceps Tendon: Medial perching with intra-articular tendinosis and/or partial tearing, without complete tear. Muscle: Diffuse edema signal involving infraspinatus. Small amount of edema signal involving supraspinatus. Edema signal with fatty infiltration of teres minor. Labrum: Diffuse fraying/tearing. Bones and Marrow: No evidence of fracture or bone marrow replacing process. Glenohumeral Joint: Osteophytes with at least small areas of chondral loss. No joint effusion. Acromioclavicular Joint: Moderate degenerative changes with undersurface osteophytes and joint effusion. Other: Fluid extending into the subacromial subdeltoid bursa. Xzwm-bz-blig contact of Report the humeral head with the acromion consistent with rotator cuff arthropathy. Ordering Provider: Tulio Vaughan FINAL REPORT Dictated: 07/03/2022 1:09 pm Julio Arcos MD Signed (Electronic Signature): 07/03/2022 1:09 pm Signed by: Julio Arcos MD Transcribed by: KALYANI Technologist: BRODY Technical Comments None [facility] Consent for Treatmenton Consent for Treatment [id number]#1 .00CD:127 Normal [facility] RAD - MRI Screening Formon 0 07-02-2022 RAD - MRI Screening Form [id number]#1 .00CD:127 Normal [facility] Physician Orderon 06-29-2022 Physician Order [id number]# 1.00CD:127 Normal [facility] Pre-Certification Formon Pre-Certification Form [id number]# 1.00CD:127 Normal [facility] Discharge Instructionson Discharge Instructions [id number]# 1.00CD:127 Normal [facility] ED Clinical Summaryon 2022 ED Clinical Summary [place] [id number] ED Clinical Summary Person Information Name: ESTRADA PFEIFFER/[facility] Age: 77 Years : 1945 Sex: Male Language: Argentine PCP: Rinku Encinas III, DO Marital Status: Phone: [phone] Visit Id: Visit Reason: Shoulder injury - Minor; right shoulder pain Speciality: Acuity: 4 Enc Type: Emergency Med Service: Emergency Arrival: 06/24/2022 21:36:41 Discharge: 06/24/2022 23:50:49 LOS: 000 02:14 Checkin: 06/24/2022 21:36:41 Checkout: 06/24/2022 23:50:49 Dispo Type: Home (Routine DC) EVENTS: Event Name Event Status Request Date/Time Start Date/Time Complete Date/Time Arrive Complete 06/24/2022 21:36:41 06/24/2022 21:36:41 06/24/2022 21:36:41 Document Home Meds Request 06/24/2022 21:36:41 Triage Complete 06/24/2022 21:36:41 06/24/2022 21:49:52 06/24/2022 21:49:52 Registration Complete 06/24/2022 21:40:40 06/24/2022 21:40:40 06/24/2022 21:40:40 Reg Complete Request 06/24/2022 21:40:40 X-Ray Complete 06/24/2022 21:51:02 06/24/2022 22:51:51 06/24/2022 22:54:24 Bed Assign Complete 06/24/2022 21:55:13 06/24/2022 21:55:13 06/24/2022 21:55:13 Dr Exam Complete 06/24/2022 21:55:13 06/24/2022 21:57:03 06/24/2022 21:57:03 RN Exam Complete 06/24/2022 21:55:13 06/24/2022 22:42:50 06/24/2022 22:42:50 Registration Request 06/24/2022 21:57:03 Dr Exam Complete 06/24/2022 21:57:15 06/24/2022 21:57:15 06/24/2022 21:57:15 Wet Read Request 06/24/2022 22:54:24 Patient Care Complete 06/24/2022 23:34:11 06/24/2022 23:48:02 Discharge Complete 06/24/2022 23:35:02 06/24/2022 23:50:53 06/24/2022 23:50:53 Transfer Complete 06/24/2022 23:50:53 06/24/2022 23:50:53 06/24/2022 23:50:53 ADDRESS: [address] [phone] [facility] DOC NOTES: MEDICAL INFORMATION: Prescriptions Given: Medications to Continue with No Changes Other Medications aspirin (aspirin 81 mg oral capsule) 1 Capsules By Mouth 2 times a day. atorvastatin (Lipitor) 40 Milligram By Mouth every day. docusate (Colace 100 mg Cap) 1 Capsules By Mouth 2 times a day as needed for constipation. Refills: 0. finasteride (Proscar 5 mg Tab) 1 Tablets By Mouth every day. Refills: 3. losartan (losartan 50 mg Tab) 1 Tablets By Mouth every day. oxycodone (oxyCODONE 5 mg Tab) 1 Tablets By Mouth every 6 hours. 1-2 po q4-6 hrs prn pain Dx: M17.11, Z96.651 Duration: 7days. Refills: 0. PATIENT EDUCATION INFORMATION: Instructions: How To Use a Sling Follow up: With: Address: When: Tulio Vaughan [address] [place] [address] Business (1) In 3 days 06/27/2022 With: Address: When: Rinku Encinas [address] [facility] [address], [place] [address] Business (1) In 3 days DIAGNOSIS: Rotator cuff injury Normal [facility] ED Note-Physicianon 06-25-19 ED Note-Physician Basic Information Time Seen: Amadou Hobson PA-C 06/24/2022 21:57 Chief Complaint pt to ED with c/o R shoulder pain after hitting it on a doorway. no fall. c/o increasing pain with abduction. MSPs intact, no obvious deformity noted. History of Present Illness Patient is a 77-year-old male presents ED complaining of right shoulder pain after striking his right shoulder on a doorway. Patient does endorse a past history of unrepaired rotator cuff injury to his right shoulder due to a remote basketball injury. Patient complains of pain with external rotation and abduction of his right shoulder joint. Patient denies any injury to any other part of his body. Patient reports that he took Tylenol with great relief shortly after his injury. Review of Systems Full 10 system ROS performed. Pt denies symptoms except as noted above in the HPI. Physical Exam Vitals & Measurements T: 36.5 ?C(Oral) HR: 63(Peripheral) RR: 18 BP: 178/91 SpO2: 98% HT: 180 cm WT: 115.3 kg BMI: 35.59 General: Pt is in NAD, nontoxic appearing Skin: Pt skin is warm and dry, no rashes or lesions appreciated HEENT: Atraumatic, normocephalic. . Pulmonary: Breathing normally, no respiratory distress Cardiovascular: Peripheral perfusion intact Musculoskeletal: Patient with pain on ranging of shoulder joint most pronounced with abduction and external rotation. Neurological: Pt is alert and oriented. Psychiatric: Pt is cooperative, communicative, appropriately reactive Medical Decision Making Number and Complexity of Problems Differential Diagnosis: [] [facility] Data External documents reviewed: Not applicable My EKG interpretation: Not applicable My CT interpretation: Not applicable My X-ray interpretation: Not applicable My Ultrasound interpretation: Not applicable Decision rules/scores evaluated: Not applicable Discussed with: Not applicable Treatment and Disposition ED Course: Patient presents ED for evaluation of right shoulder pain. No acute osseous abnormalities on x-ray of right shoulder. Based on physical exam and history, most concern for possible rotator cuff injury. Patient given a sling, instructions on RICE therapy. Patient instructed to follow-up with his orthopedic surgeon for further evaluation. Patient questions answered. Return precaution discussed. Patient discharged home. Shared decision making: As above Code status: Not addressed during this visit Assessment/Plan Rotator cuff injury (S46.009A: Unspecified injury of muscle(s) and tendon(s) of the rotator cuff of unspecified shoulder, initial encounter) Orders: Sling Apply Disposition Plan Patient Discharge Condition Stable Discharge Disposition To home Discharge Prescription List Prescriptions No active prescription medications Follow-up With When Contact Information Tulio Vaughan In 3 days 06/27/2022 EST [address] [place] [address]- Business (1) Additional Instructions: Rinku Encinas In 3 days [address] [facility] [address], [place] [address]- Business (1) Additional Instructions: Patient Education How To Use a Sling Attestation Patient seen and evaluated by the physician political science research assistant. Attending physician was present in the emergency department and supervised care. This visit was performed by both the physician and an APC. I performed all aspects of the MDM as documented. This report was transcribed using voice recognition software. Every effort was made to ensure accuracy, however, inadvertently computerized transcription coordinator mistakes may be present. Appropriate healthcare PPE was used in evaluating this patient. The patient was placed in a mask. The healthcare provider was wearing mask, gloves, and utilizing proper hand hygiene. 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 Nocturia Obesity 29-OCT-2013 12:37:00<$> Obstructive sleep apnea Osteoarthritis Personal history of prostate cancer Post-void dribbling Urge incontinence Historical Coronary artery disease HTN (hypertension) Prostate cancer Procedure/Surgical History Endovenous laser ablation of varicose vein (02/15/2022), Total knee replacement (06/27/2021), left total knee arthroplasty (04/13/2016), left shoulder arthroscopy with extensive glenohumeral debridement, subacromial decompression, partial distal clavicectomy, mini-open rotator cuff repair (02/23/2014), Implantation of radioactive seed into prostate (07/12/2011), Laser ablation of prostate (08/12/2007), Cystoscopy (07/15/2007), Urodynamics (07/15/2007), Transrectal biopsy of prostate using ultrasound (US) guidance (05/24/2000), Cancer of prostate, Hernia, Sleep studies, Stented coronary artery... Medications Inpatient influenza virus vaccine, inactivated HIGH-DOSE preservative-free intramuscular suspensio (more content not included)... Normal [facility] Comment on above: Result Comment: Elec tronically Signed By: Amadou Hobson PA-C\.br\Date and Time Signed: 06/24/22 23:37 EST\.br\Electronically Co-Signed By: Josh Obando DO\.br\Date and Time Co-Signed: 06/25/22 04:59 EST ED Patient Education Noteon 06-25-2022 ED Patient Education Note Orthopedics How To Use a Sling A sling is a type of hanging bandage that is worn around the neck to protect an injured arm, shoulder, or other body part. A sling may be needed to prevent movement of (to immobilize) the injured body part while it heals. Keeping the injured body part still can lessen pain and speed up healing. A health care provider may recommend using a sling: ? To treat a broken arm or collarbone. ? To treat a shoulder injury. ? After surgery. What are the risks? In general, wearing a sling helps with safe healing. However, in some cases, wearing a sling the wrong way can: ? Make the injury worse. ? Cause stiffness or numbness. ? Affect blood flow (circulation) in the arm and hand. This can cause tingling or numbness in the fingers or hands. How to use a sling Follow instructions from your health care provider about how and when to wear your sling. Your health care provider will show you or tell you: ? How to put on the sling. ? How to adjust the sling. ? When and how often to wear the sling. ? How to remove the sling. The way that you need to use a sling depends on your injury. Unless your health care provider gives you different instructions, you should: ? Wear the sling so that your elbow bends to the shape of a capital letter L (90 degrees, or a right angle). ? Make sure the sling supports your wrist and your hand. ? Adjust the sling if your fingers or hand start to tingle or feel numb. Follow these instructions at home: ? Try to avoid moving your arm. ? Do not twist, lift, or move your arm in a way that could make your injury worse. ? Do not lean on your arm while wearing a sling. ? Do not lift anything with the hand or arm that is in the sling. Contact a health care provider if: ? You have bruising, swelling, or pain that gets worse. ? You have pain that does not get better with medicine. ? You have a fever. ? Your sling is not supporting your arm properly. ? Your sling gets damaged. Get help right away if you: ? Have numbness or tingling in your fingers. ? Notice that your fingers turn blue or feel cold to the touch. ? Cannot control bleeding from your injury. ? Have shortness of breath. Summary ? A sling is a type of hanging bandage that is worn around the neck to protect an injured arm, shoulder, or other body part. A sling may be needed to prevent movement of (to immobilize) the injured body part while it heals. ? The way that you use a sling depends on your injury. Carefully follow instructions from your health care provider. ? A good general rule is to wear the sling so that your arms bends 90 degrees (at a right angle) at the elbow. That is like the shape of a capital letter L. ? Make sure you know which problems should cause you to contact your health care provider or get help right away. This information is not intended to replace advice given to you by your health care provider. Make sure you discuss any questions you have with your health care provider. Document Released: 11/27/2004 Document Revised: 03/28/2018 Document Reviewed: 03/06/2018 Elsevier Patient Education ? 2019 [employer] Normal [facility] ED Patient Summaryon 023 ED Patient Summary [address] [address] Patient Discharge Instructions Person Information Name: ESTRADA PFEIFFER Age: 77 Years Arrival Date: 06/24/2022 21:36:41 Discharge Diagnosis: Rotator cuff injury Primary Care Physician: Rinku Encinas III, DO Provider Information Primary Provider: Josh Obando DO Advanced Ending Machine Operator:Amadou Hobson PA-C The exam and treatment you received in the Emergency Department were for an urgent problem and are not intended as complete care. It is important that you follow up with a doctor, nurse practitioner, or physician?s political science research assistant for ongoing care. If your symptoms become worse or you do not improve as expected and you are unable to reach your usual health care provider, you should return to the Emergency Department. We are available 24 hours a day. ESTRADA PFEIFFER has been given the following list of patient education materials, prescriptions and follow-up instructions: Follow-up Instructions: With: Address: When: Tulio Vaughan [address] [place] [address] [facility] (1) In 3 days 06/27/2022 With: Address: When: Rinku Encinas [address] [facility], [place] [id number] [facility] (1) In 3 days In the event that this physician does not participate in your insurance network, please consult with your insurance company to find a nearby participating provider. Patient Education Materials: How To Use a Sling A MESSAGE TO ALL PATIENTS REGARDING OPIOIDS PRESCRIPTION OPIOIDS: WHAT YOU NEED TO KNOW Prescription opioids can be used to help relieve [id number] pain and are often prescribed following a surgery or injury, or for certain health conditions. These medications can be an important part of the treatment but also come with serious risks. It is important to work with your healthcare provider to make sure you are getting the safest, most effective care. WHAT ARE THE RISKS AND SIDE EFFECTS OF OPIOID USE? Prescription opioids carry serious risks of addiction and overdose, especially with prolonged use. An opioid overdose, often marked by slowed breathing, can cause sudden . The use of prescription opioids can have a number of side effects as well, even when taken as directed: ? Tolerance?meaning you might need to take more of the medication for the same pain relief ? Physical dependence?meaning you have symptoms of withdrawal when a medication is stopped ? Increased sensitivity to pain ? Constipation ? Nausea, vomiting, and dry mouth ? Sleepiness and dizziness ? Confusion ? Depression ? Low levels of testosterone that can result in lower sex drive, energy, and strength ? Itching and sweating RISKS ARE GREATER WITH: ? History of drug misuse, substance use disorder, or overdose ? Mental health conditions (such as depression or anxiety) ? Sleep apnea ? Older age (65 years and older) ? Avoid alcohol while taking prescription opioids. Also, unless specifically advised by your health care provider, medications to avoid include: ? Benzodiazepines (such as Xanax or Valium) ? Muscle relaxants (such as Soma or Flexeril) ? Hypnotics (such as Ambien or Lunesta) ? Other prescription opioids KNOW YOUR OPTIONS Talk to your health care provider about ways to manage your pain that don?t involve prescription opioids. Some of these options may actually work better and have fewer risks and side effects. Options may include: ? Pain relievers such as acetaminophen, ibuprofen, and naproxen ? Some medication that are also used for depression or seizures ? Physical therapy and exercise ? Cognitive behavioral therapy, a psychological, goal-directed approach, in which patients learn how to modify physical, behavioral, and emotional triggers of pain and stress. IF YOU ARE PRESCRIBED OPIOIDS FOR PAIN: ? Never take opioids in greater amounts or more often than prescribed. ? Follow up with your primary health care provider. o Work together to create a plan on how to manage your pain. o Talk about ways to help manage your pain that don?t involve prescription opioids. o Talk about any and all concerns and side effects. ? Help prevent misuse and abuse o Never sell or share prescription opioids. o Never use another person?s prescription opioids. ? Store prescription opioids in a secure place and out of reach of others (this may include visitors, children, friends, and family). ? Safely dispose of unused prescription opioids: Find your community drug take-back program or your pharmacy mail-back program, or flush them down the toilet, following guidance from the Food and Drug Administration (www.fda.gov/Drugs/Re sourcesForYou). ? Visit www.cdc.gov/drugoverd ose to learn about the risks of opioids abuse and overdose. ? If you believe you may be struggling with addiction, t (more content not included)... Normal [facility] XR Shoulder Complete Righton 06-25-2022 XR Shoulder Complete Right Exam Date/Time: 06/24/2022 22:54 EST Reason for Exam: Pain, Non Traumatic Report IMPRESSION: DEGENERATIVE AND CHRONIC CHANGES, NOTED. EXAM: XR Shoulder Complete Right DATE: 06/24/2022 CLINICAL HISTORY: Pain, Non Traumatic. COMPARISON: None available. TECHNIQUE: AP and lateral radiographs of the right shoulder were obtained. 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 Mild to degenerative changes of the glenohumeral joint are present. There is no fracture, dislocation, pathologic calcifications, worrisome bone destruction, or other acute findings identified. Ordering Provider: Josh Obando FINAL REPORT Dictated: 06/25/2022 1:18 pm Tony Michael MD Signed (Electronic Signature): 06/25/2022 1:18 pm Signed by: Tony Michael MD Transcribed by: KALYANI Technologist: MARIBELL Technical Comments Radiation Dose: Ka,r in mGy = n/a DAP = n/a [facility] Consent for Treatmenton 05-31 Consent for Treatment [id number] .[id number]:127 Normal [facility] Coding Summary.on 06-04-2022 Coding Summary. CD:[id number] G h0bWw+PGhlYWQ+RO9RAFE aF94osONqrT9DM3uXUY7Y MEWDUCCYUY9DOE0reJP1C KaoE2YdiiDj YifzeCJlBB20NUf6SFN8t OehKDqncG8mpVNnC0i3Mu KiEN48kK80FXiaIRLxAdR 3LjZpbjsgbWFy D1eiFcGixYNlNkb+PHRhY mxlIHdpZHRoPScxMDAlJy SjyJbmJQ5hOk6gTBZsZYI vbGxhcHNlOiBj a6stCORkJDjcZM8hpAapH 9EbzZZ4VSGry3j4Ko43zJ I+LZMeDLT0sZioXTgbp17 9PhXma9wvKNW9 eKKlYCbhEFM7J69si2M2U BQhPFXhPFA1eZP3wE5ouS fchxtdV6GyyBLqFoE5JMD 6gOYmcH6ksQnw phypfL5oHsk+C49HZO7JU FIGNL3TXcd1Z9PxNylbxL I+HB02BTToFW58uEKwqZJ ym8ntzUe7TlKc VJZaOTR8yNjvNXeev5VvH YXxH52osNFak7H2GUTsgL ainZAyPxYmnDN7oK7rTXp zdpfiy5lsblya Rvfux6svwh99hJ98M66kX JtzSWMgPBA6PTWmVKOimW twka1jrD8xIj0+EPspi0x dp1jgsNi0ElTo HCMcwnMqnXnoSJY3l2HmG s76Z4HvsArvk8TfSdb2vp 29jYCyc4Q2vML2IRmhBVY omW6tHXxfWoZ3 PZQkVoQejI36aVTtXJkdJ w1hxGxiyKjaYT7oMWFzia whANQhrF8yDVBnvHMopYh uDH8pPYSruara p528WvMmHJC7IELkbQBoK 2IywQ7nKjOdDIMfPBXdF4 TxwVMvPXgjT163OBpwRzR 6SEBybeFtH3Pd MRLepHcbVhW6w2W4Fp3Wj 4IvddatTVO6SDccEZNgJe I2DzQhGlF9R8CxZyg1BLF bnDehHT2xU3Ab HJSbiivbwwwzwZW3JCIdG EJoeN32eGHmDAaiSs4xu2 S5v906ASGuIDEhkL75Zs2 udDogMTBwdCBU iK5yytvzz2yzdzvvGuYvL BBzQUb1EGa5ZDJghRfbAt BaCKM6FqW7ONI5aBTktF6 wgEmsyyouzA7w Oyc+G50mgF5sQHO0RNO4r lhgIVTlozWtTJ93PR84T5 RyPjwvdGFibGU+PGRpdiB uxHmzRE7gIxSy n3sel5VdARkuW0YsYIMjJ UmmFud4QUUfOLQ8qTD3bE 6kLJOgCIkuj3G5jXP4N3D kawAdlc1zx3jr XOSmZOhaN42amIAqp0T2E XEjzCY2YTPznVjgCdCsiL 93Oyc+CVLpfZtte4HkHox bz7zlh8omiZz4 VyUkVIGhvoKhyZwoMEQ0b 1WnYl98H00cESgwGMHjFG VmCFJlZGDvvSforz0owJ8 wIi8+PGNvbCB3 oHK1tB6cJWRoJiW5OHwkV 038MhMraBOiMvtok2juo7 swvZh8LcHvVTVoihKidMo hMMY8s2JgEb77 B55rXZkcKDBqVBJiPXXfS BAfqQkunw0wiI4pVd0+PC 3el3gbcd37dY72aOZ+PHR pEZZ0jXjyRZgu YCKssZ1gIBzfQbL6JFSnT kHrxA27zGLfOKdyZl3ikA fjiSjxDA9wHRJjqkllk81 6OwVna5buWLUw sLImQVliUJU1Z77it9M2Q LSqYVGvXAP3hUC5kL2kxK lnbjogbGVmdDsgdmVydGl sUUkrNRazJ713 IHRvcDsnPlBhdGllbnQgT jCrVVr3G5IyKsi9MLRcsJ xqUC5djYQgQNorBu6nyMv kxErbHN6gMYSx usilr311AbHyt4lcHYUvk EPwWBrxIYM0P82av3Z6OA YmSSHcWEB9lDV7dN9xtSt nbjogbGVmdDsg vsIzlMvkSCmjWUbdQ224S HRvcDsnPkJpcnRoIERhdG L5UL33WB95hSQkp7G0mUT 3D0KvVKMvvloz yahacYL3JRCsEYTnaQ85X z4avCmvOh0cUDDfDQM7SI EedFKyF2LtuA0yJbVoXFV cAGWkD7TcuXXp VCffV675MMnmQgM6YSZds pStG3DiOJGjsWorVfP5j4 U5Xz2OB2Z3QC88WY60eRL gy9J3hGP2S4Cd XAQrdrawtgsxjCN2OMUsX MUqeY77Xs8wgYtzJg2lHM ZyGXB8AVKpqXDsX4QttW9 yOiAjMDAwMDAw J9XxuKWkXClnO303TVvcK jC5XXWinyXsD8EdKUDehQ ctOeP4a2Z4Xr0XHEh3ZZ0 4CF32vPSwa3O4 hJB0R7RjNFCdkfytaqqsn LR0YFGbPHIkpP46Pn6kmB qsNs8yYHEiLPP1WKIziFJ wI0GgvI8dHaOn TTPzZKHcT8HugCHpEBsqQ 787VSafEjO7LTQzizGjK0 MlRQOydFmxZdV4o4C7Op0 TNZYgEF37TXB3 zCU0VV19HE24K0NxRmhni GFibGU+PHRhYmxlIHdpZH RoPScxMDAlJyBzdHlsZT0 wRr1aWAKgQZQx iBzzkDEvWvLqj6zpHQKkF ViqDM5cnYnyO0ItoQS4RF Ani5o6Bi00M13dJ1WkcLH +AKXhnGR5zOU5 zK8uBvFuGnH6GPxvH919V hOemDYsFedve3qdn8ogdZ q1TqS9ACUvzaQhtQnmVYQ 3o2VzRu05S26j IHdpZHRoPSIxNSUiIHZhb Vtubd1ndC5bTf8+PGNvbC O3gKD8sS1xSjDhJeK1JRi cU493HhTquPNg Boadu7hww9ylgId4IpFiJ DEsxvMubGewBLG1k0KePt 80Q0VgbGqmd0QuGyi2wo3 3uEQfd2S6hRX0 N0GpJYSpfeuveDIbkTnvK E4qBUHtummkMFMbrV8mBR ZkW4f0XeFoJcH2IUujK9Y dvzK6QPEaeEUs RGotPEQ8T89zu2R5QDUrK LFeBDU7tKE3jR0rwYptwa ogbGVmdDsgdmVydGljYWw xETiuW283CVLt iHflESOqfF8jFTKcpMOto VfmNG9kKHCvjiniDdoOOT dYETBZCT5VPKAdJIwguKR +JQPkZHX2uZdg JLqfPWCrcP3bRZOnV5u7L mGqNyL6MWfyB8HqQGPtem igJy86iF7hNwHhNvO7ORx tY0IyjoW7HJWy hTZeKAepHZO3Q49wn6M7K XBlTEEtSNT9cHZ2sJ0ilB lnbjogbGVmdDsgdmVydGl yLWziGFfzE405 NYHjfGqiCxRpPeHtMoT4N Vi1Q7HxNfm8EBBswLqnUM 0baFUeBZoxWv2kpEcllSx kDT3qQQXjkdqc HROecT8gELLsqNMhcYxiN T8nHFUhjlxqk950WvZrZB J0SAHjbFLiZ6NvgZ4eQuN iXAVaDZJtV5Zu aAKhYHqiV595FWrsOqQ7K HIvpqNfE5DfQVLbjMgvMd I6h5U4Co45UdASALQplxm vdGQ+PHRkIHN0 oIjrBVkmIGNthU1hWEUuL 8k7TaWwLoY4URcdH6QtKZ CylssoPx17hG6gPjFzZdK 8NRblS0PmsjR1 YJVlqXNgWDpoLMW8L86sr 5R9DMMrODWdVBW2zDO2yW 1hbGlnbjogbGVmdDsgdmV ydGljYWwtYWxp D763KSEndHorDa1tsAB6W 3SxVhn8JPPumXndOO6ghF HiRAqpVa0nxTjyuVdgZK5 wNTBpbjtwYWRk qF4fUNThaLKxfMfyMZ9gT RUipxihm780MiLhCDJ5LN TfvBHpF9TysX2wXvVgKQP bFVFaG1IxuXKr JMjaX042KMvzXhF3HDPet wUmB2XqHQEogDeeIyQ2o2 N7Lp4UwYZiHOXyFN27IV0 4RG48L6MhWyzl dGFibGU+PHRhYmxlIHdpZ HRoPScxMDAlJyBzdHlsZT 0aUm3kHUVwQNIrpPgarPH gCgGbr7xhXFCs LIhqRQ3ikUsiB5VzbMZ7J WJvk4b5Hm05B03zV4YidC A+EHHsmRG0qFR3dM1zEeN qYpD5WLbrX409 ZrNzmYAaYgadl0edz7rxw Qu1KxEgYIMgjnEqqZftVE O7u0DkLb68A24uMUitHVD oPSIyMCUiIHZh kIdbqx0vbE1dDm8+PGNvb NF5lEB3oW7dNrDePrV1RG qdC059AgPnhOYvReeiK81 iK9JypYR+PHRy Dcb5QPOunBieKW0euCQzC VwoBr7aFLW3IpKbSxMjCW prI5SdQTDhbmcwmgoxtLH 3ZIHsVVRhhG43 Qb0ywPziMc6xZBRjGXJ3Y SZmnYPlI5RygP2tXvXbHS XwDPYrY9BkyETuZJixM23 5DPqzEhR2TFFh guScB4VbGEIwmEkzKhS0d 2A1Vl7EdZhqtWThMG1mUr CiENs9Q5YbPrl8YYLomRs eFM9owNWySCep Rl4xkQwxnYccXD2yGJQwg vrog047LwGnz7iqMUAytB EzQOwfXBA2K48ku6O3RAT yJPZzGHD9uUV4 qI0ssXocfdgeyRRwwFlin sOtxAhgYZapBWqxI861VV KnuJbqClKGEym0J2SfVho 4OOPxqZqjPX6v aJOdQKveDn1gyDkdzCbuF T6gNUCbnghjt163DpMex5 ymVCAjyPSeZQsdQAK0I61 ko0X5UFOrXBCj QVR5eWO8bS8odNopwzosx GVmdDsgdmVydGljYWwtYW gvR289QBFqmZytJm9LPxh 7B2XpCxv9NSTd jVmbLG6voYLsJVbgYs2rz ZrypDfyIW9zMGCaekfai7 53NbBal6vfCQAdpXXqQHb gCOQ1U01sp4V2 REXkLFNjSMZ3mOX4cG6ln GlnbjogbGVmdDsgdmVydG dsYVjkMNlcR591RABlnEu nPlBheWVyOjwv dGQ+UU10zz69N3FzBamoE fa1NXIwMMC7wVE5hP4oAU ZsIWkrh5C0sPD6G9VmmsN mrw6oy6vrATHd ZTog (more content not included)... Normal [facility] Office Visit (Cardiology)on 05-31-2022 Follow-up visit Diagnoses/Problems Assessed Atherosclerosis of coronary artery (414.00) (I25.10) Status post coronary angioplasty (V45.82) (Z98.61) Essential hypertension (401.9) (I10) Hyperlipidemia (272.4) (E78.5) Sleep apnea (780.57) (G47.30) Never a smoker Class 2 obesity with body mass index (BMI) of 35.0 to 35.9 in adult (278.00,V85.35) (E66.9,Z68.35) Deep vein thrombosis (453.40) (I82.409) Orders Atherosclerosis of coronary artery Renew: Aspirin Adult Low Strength 81 MG Oral Tablet Delayed Release; take 2 tablets by mouth every day Atherosclerosis of coronary artery, Essential hypertension Renew: Losartan Potassium 50 MG Oral Tablet; TAKE 1 TABLET BY MOUTH EVERY DAY Basic Metabolic Panel; Status:Active - Retrospective Authorization; Requested for:31May2022; Complete Blood Count; Status:Active - Retrospective Authorization; Requested for:31May2022; Atherosclerosis of coronary artery, Hyperlipidemia Renew: Atorvastatin Calcium 40 MG Oral Tablet; TAKE 1 TABLET AT BEDTIME Class 2 obesity with body mass index (BMI) of 35.0 to 35.9 in adult Healthy Weight Tips; Status:Complete - Retrospective Authorization; Done: 31May2022 Some eating tips that can help you lose weight.; Status:Complete - Retrospective Authorization; Done: 31May2022 SocHx: Never a smoker Tobacco Use Screening; Status:Complete; Done: 31May2022 Patient Instructions Please bring all medicines, vitamins, and herbal supplements with you when you come to the office. Prescriptions will not be filled unless you are compliant with your follow up appointments or have a follow up appointment scheduled as per instruction of your physician. Refills should be requested at the time of your visit. Follow up in 6 months Same meds The provider reviewed the following test(s) and result(s) with the patient: laboratory tests Chief Complaint ESTRADA PFEIFFER is being seen for a 6 month follow-up of. Patient is in the office for follow-up for the problems noted below. Since I saw last time he lost his brother Efraín 2 weeks ago and he is still grieving his loss. He has had no cardiac events whatsoever. He had venous stripping in his legs several months ago by vascular surgery at [facility]. Lipid profile from recent testing was reviewed with him and his numbers are on target. His weight remains above target. He does use CPAP machine at night and has been compliant with that. His examination is only abnormal for obesity. ASSESSMENT AND PLAN: 1. Single-vessel angioplasty with bare-metal stent to the marginal in 2011. His risk factor under control. Will continue present medical therapy without changes. 2. Hypertension, presently under control. 3. Hyperlipidemia, on statin therapy, lipid profile is on target from recent testing 4. Obesity. Encouraged more weight control with exercise and diet. 5. Previous history of left lower extremity deep vein thrombosis following knee surgery with no recurrences. No need for long-term anticoagulation, he had venous stripping last year at [facility] 6. Sleep apnea on CPAP machine with compliance. Summer Deshpande MD, [facility] Surgical History Problems History of Cardiac catheterization History of Complete colonoscopy History of Knee replacement RIGHT AND LEFT History of Neck surgery History of Percutaneous transluminal coronary angioplasty History of Prostate surgery Current Meds Medication NameInstruction Aspirin Adult Low Strength 81 MG Oral Tablet Delayed Releasetake 2 tablets by mouth every day Atorvastatin Calcium 40 MG Oral TabletTAKE 1 TABLET AT BEDTIME. Clindamycin HCl - 300 MG Oral CapsuleTAKE 2 CAPSULES 1 HOUR PRIOR TO DENTAL APPOINTMENT. Finasteride 5 MG Oral TabletTAKE 1 TABLET DAILY DIRECTED. Losartan Potassium 50 MG Oral TabletTAKE 1 TABLET BY MOUTH EVERY DAY Nitroglycerin 0.4 MG Sublingual Tablet SublingualPLACE 1 TABLET UNDER THE TONGUE EVERY 5 MINUTES FOR UP TO 3 DOSES NEEDED FOR CHEST PAIN.CALL 911 IF PAIN PERSISTS. Patient did not bring medication list or bottles. Updated verbally with patient Allergies Medication Penicillins Allergy; Hives;; Recorded By: Africa Benoit; 04/05/2021 7:37:38 AM Sulfa Drugs Allergy; Hives;; Recorded By: Africa Benoit; 04/05/2021 7:37:38 AM Iodine SOLN Allergy; Itching; Rash; Recorded By: Africa Benoit; 04/05/2021 7:37:38 AM NonMedication Shellfish Recorded By: Africa Benoit; 04/05/2021 7:37:38 AM Social History Problems Caffeine use (V49.89) (Z78.9) 1-2 cups of coffee Never a smoker No alcohol use No illicit drug use Review of Systems Constitutional: not feeling tired. Cardiovascular: no intermittent leg claudication and as noted in HPI. Respiratory: no cough and no shortness of breath. Gastrointestinal: no change in bowel habits and no blood in stools. Integumentary: no skin rashes. Neurological: no seizures and no frequent falls. All other systems have been reviewed and are negative for co (more content not included)... Normal [facility] Tobacco Screening.on 023 Fall risk assessment a) No falls within the last year [facility] y [address] DO Work Phone: Tobacco use status [facility] b) No [facility] y 250 DO Work Phone: Tobacco Screening. Yes [facility] y 250 DO Work Phone: Xu 05-30-2022 ALT No additional P-5'-P [Catalytic activity/Vol] 14 Int._Unit/L Normal 6-46 [facility] Comment on above: Performed By: #### 2 [id number], [id number] #### [facility] [address] [place] [address] [place] 05-30-2022 AST [Catalytic activity/Vol] 16 Int._Unit/L Normal 5-43 [facility] Comment on above: Performed By: #### 2 [id number] #### [facility] [address] [place] [address] CHEMISTRYOrdered By: SYSTEM SYSTEM on 05-30-2022 ALT No additional P-5'-P [Catalytic activity/Vol] 14 [iU]/d Normal 6 - 46 Int._Unit/L [facility] AST [Catalytic activity/Vol] 16 [iU]/d Normal 5 - 43 Int._Unit/L [facility] Cholesterol [Mass/Vol] 138 mg/dL Normal 120 - 200 mg/dL [facility] Cholesterol in HDL [Mass/Vol] 49 mg/dL Invalid Interpretation Code [facility] Cholesterol in LDL [Mass/Vol] 71 mg/dL Normal <=129mg/dL [facility] Cholesterol in VLDL [Mass/Vol] 16 mg/dL Normal 7 - 40 mg/dL [facility] Triglyceride [Mass/Vol] 82 mg/dL Normal <=149mg/dL [facility] Consent for Treatmenton Consent for Treatment [id number]#1 .00CD:127 Normal [facility] Lipid Panelon 05-30-2022 Cholesterol [Mass/Vol] 138 mg/dL Normal 120-200 [facility] Comment on above: Performed By: #### 2 [id number], [id number] #### [facility] [address] [place] [address] Cholesterol in HDL [Mass/Vol] 49 mg/dL Invalid Interpretation Code [facility] Comment on above: Result Comment: HDL > or equal to 60 mg/dL: Low cardiovascular risk HDL < 40 mg/dL : High cardiovascular risk Performed By: #### 2 [id number] #### [facility] [address] [place] [address] Cholesterol in LDL [Mass/Vol] 71 mg/dL Normal <=129 [facility] Comment on above: Performed By: #### 2 [id number], [id number], [id number] #### [facility] [address] [place] [address] Cholesterol in VLDL [Mass/Vol] 16 mg/dL Normal 7-40 [facility] Comment on above: Performed By: #### 2 [id number], [id number], [id number] #### [facility] [address] [place] [address] Triglyceride [Mass/Vol] 82 mg/dL Normal <=149 [facility] Comment on above: Performed By: #### 2 [id number], [id number], [id number] #### [facility] [address] [place] [address] Physician Orderon 05-30-2022 Physician Order [id number]# 1.00CD:127 Normal [facility] Coding Summary.on 03-30-2022 Coding Summary. CD:[id number] G h0bWw+PGhlYWQ+QZ8UGMG bL43qdCGgmU9UL1uAIE1O IFZRWUSZGE2AEO5jvHQ3B QjyM7FraaGj AbdixVKiRM51EBv3GAE1m XsyYXkeaN7naGDdW0a0Ak AfRU51tG89KFttKQBdOaI 3LjZpbjsgbWFy Z8fvKlPskWWwLsg+PHRhY mxlIHdpZHRoPScxMDAlJy OavThtVN1gXs3zFYHzFPQ vbGxhcHNlOiBj f4qiPLCkAIicGI9iiUjvD 9AdgDI4SUNfq3b8Mf53iS I+DKGxZMN1wJvwEBqqo20 1HjEpz7upLGB2 vRLdGOwaRVU6D10iu8L4O AYxAKHlJYD5uBI3wO5clV zbzrguV6CeiPZhQaM7CQQ 9aGGorA2hkWsc gefsrI8fVsc+E32BUT5JI EXIYU6EXqb3Z9NbAwggkX I+QA58KOMcHS64rNJkqQM zd1nuoFc8ZoEa DAZfVBJ0jPmlMJann7QzW JQdL20lsNBxk5S0YNNifQ kqaPLtFsVyzAE7cN2yVXn zgsazw8uxglxp Xmpsa5ofuv59qA11Q80hI YvfQXPdKDG5QWOnPLYttY nsvp7caQ0pSn8+REqvh2v ir4sarSw8OqYi KQWgpiRrzCqsDFP7i3QvD c49S8OggZuiq5LmDsb6zc 14zYKac4I8xUP6EHpzDIS okJ0pPTozTqH6 JGIvZiVunA48jNEsOSigP e2kgRdkkJzmPB5rWOIbnm puCXJihB8fUMStrHCygOl fFY1sXPGzflim u466HmOoBNO9IPKrdRMkZ 6CmzX2vTaGfAZBrYOBoV4 MqhTRcVTfmU807HVvxIkB 4VIOrhbSoT5Jk FEOqwSwyJjW7p1P7Qu0Lp 7SdjnukIYF9LAsoFWSbCa KoMzMkWbL5W0UtVne0XHZ kyVrxKG2fX9Ah SWLzeonxahuqnSS7UUJxV FUmjP47kZYvGDhfZf1da0 J0p094YCFfXWZimA80Nt7 udDogMTBwdCBU pE1rsizby0eqfgmsHlLtP DYcUFi8QZu8JRLwxCyzVd HoQJV4FtL9QEZ1pJOjkY2 zuUvwtesvsU3j Oyc+K86gwW6yQFC7PYD4n taaCNAefeJdTS10FC14T0 RyPjwvdGFibGU+PGRpdiB tiJqlWL4gNsDf k7phs9ZdUAtxP2GpPHUjH OjgUyc3KIZrWDF5yPW0jC 2mXFXjKKyij7W8vJH9W5E sxxKmwy0ay0oc RYJzVHomN80fuRYbh8R1D LTdvFH6FUArpHgzAyVcpR 93Oyc+LEWxnOgzl2YvShp us9gyr0lwuIu7 SbGvEPAwnsVzjIqeRGZ9g 6OqDw05J69tJAehCTUdNZ XlXTXrZWYhiPcvex7tlN6 wIi8+PGNvbCB3 lGX1nW0xEKSkPuV4YLqxH 725LvMlrYHtGoxxi9bsp1 qesCb6VlAdZKFjjvHuqJz rQWC9o4CzBc33 M31gFNixNYCgSMGxMWBwD IOmgQwcfg9xpQ7uTx8+PC 8ou3zjsq92uI66oKZ+PHR mGMP9fSwrZPnq PTUziA1bVXibIrO3UHRlL oZvjO15eALuOEmoGu7ojE tisEonQS7aTMThnjpew49 6WtLds5tkZVAt lMPmABkzZNT7I01cl6T1P WCtDKUmKVD3qCG1cR8zkJ lnbjogbGVmdDsgdmVydGl bXMhvRGooM438 IHRvcDsnPlBhdGllbnQgT oJnOJg4X6XqQet2DKNucL ftBB9spWOrKYopKh7ooRa hgDeeQI1hKUZf edorg821WsFuw3odXHJgl XBaTZmlCKK4G80fu6I2YS TmVANiOSI1qZC4yZ0cxYl nbjogbGVmdDsg ckFmvJycKHhoBEwfZ308J HRvcDsnPkJpcnRoIERhdG B2RG39IT29aUUcq1I8pAZ 9E2JfLKEeehfr gublqKH2QKNxTORzdO06C k1lgGuzFx1aWSCgMKK4SM ZqqOLdL3AdaG4jSqOyMXL xJGUjC3CrjHGd BKruY957DStuBjI8EKWxd wFmL6GwSFYwxJwcQxG9j4 Q9Oy8OU8W8HY00YV84mWI ji1C8kVV4S6Cm LIArnfywbqtgdOP8DZPkG PQwdD81Vz7gmUaqMh4sZC YrQYN5VOGwlEYdY7QoyJ3 yOiAjMDAwMDAw H0GgoPKgZQbrB005WYhvS nP2WCHzikUnE3EjEFLnzM llWhR9i6V8Bc1UNAq5EG5 8XK82zBEje5K3 iVI8N3QcKFXulcjcnnjad IO4KMArDLDynY22Xz9bnV baLu7aBHVmVSW6NIYejWA mW1DsjS9wLeGk FTSvKDNuM3FgqXRjXKlyP 710UXwlKbB6QEXhzeNwG7 HaORKbjSibGgP2k2T5Qg5 YMPMhHB53DOA2 eXH8XS19KY08E2ErAeuuu GFibGU+PHRhYmxlIHdpZH RoPScxMDAlJyBzdHlsZT0 fXj0mBLPcMVPt kMvicEIeUpSel1urIWWgQ VpaHF0huDfdY2GuwTM3UJ Gxr2b6Ns34K57tC7HueGF +YACkgYH7aGN3 yH0pYjXzYhW0DTbfS845K nPbdUMmTohkm9yrg0wdwR z4ZfK3CBGxzaQabYatYZF 5u0YaPl96I03n IHdpZHRoPSIxNSUiIHZhb Jhsvx1jvD2rLm1+PGNvbC B1sQA4wP9vKqGnWjQ0ZQd eJ985DpNrzMOp Msxbi6bbm8zftUt0QaLiM OMbuyQmsOicUFY0o7NzNw 76T8SccFlcq8GtGix6pr1 2bDElr4M3tVN0 E1MbAXCbhndkqWNlkTmkM H2zTCSymynbIVXtvP9sKM GfK7h1ZmSqFxX1TWwoN9J qchE2LCQbxHSl UZfkZMZ8H30cc9C4XWRgE LMbIMO9jBW9qP4evNpjye ogbGVmdDsgdmVydGljYWw uYSbsV574SJQv gQpzNXMoeV2cFZNoiZZei ZevDX4jYVFyucveDozWZX xXMQVSDN4FWZWwXFnvjWQ +TNWxVDC6pWmb VHmzDGHkwI6kSQRnA6g8R yMgHxA1USlhD4AnJZEtyl uuKt17bB9qDoPiFvJ2XNm tY9McxrD4YQCu hZKhPKxmMQU8P49ej5K1F SYsGNDyKKK2tAG3xC5ozO lnbjogbGVmdDsgdmVydGl cMAikJQvhW212 EUMklPwaMxLqFaBoUyP6B Og6C1GzAbc4YHOmhWnnGS 4jbIRjRPcmUp2rcZvehFp rUU6qTDKvzolk QTRepJ8kJQVvwRJdqGjxE W3aKTKsnescx921VxLzMR F3TMFquJEgD4IwdP7iFvP mAFIjZEGnE7Xq kAEfLAopX365HRwaShQ1S QIiyqYeX3HjDHNdoNkpVb P2t4U5Np24MVZYFDJgvpc vdGQ+PHRkIHN0 sAabAUreYTSavM1hBIJwJ 3k6ZdFgQwY6EFxfP0XtJS CrqfdsVv44cH1jAkKwJjT 2WIkoK3XhydW0 EQWzlFYcIDxoMKI1M12oo 2D8JELsDRFaLZO5aUP6qQ 1hbGlnbjogbGVmdDsgdmV ydGljYWwtYWxp W421NZDlyNpyNo0auEK1V 0DjZib4TVLakMunWI4csY SyXNoeVc9yiMlazCweSC0 wNTBpbjtwYWRk iL2wANEztSZpcSyjOB4rT PBueugwe771ZhKePPC8MO WxpPXoS7TtqL7wPgExYLG vYWBmD1VpmREm GRnjW232PMzwRxB9PODyq cVpX3KgFAYlrCxfMiM0i8 L6Kb7VdHGpBAAlEL29WE9 2OX08R3YkZodn dGFibGU+PHRhYmxlIHdpZ HRoPScxMDAlJyBzdHlsZT 8pAb2oUFMyNZRioYhqmJR lTpPmn9raFWHg DXmeGP2npPfoG7GgqAH8V CKaa0o5Fm30A04zD6RljV A+FAQdyBM8hBK3sT5zDdZ nYbC7TSllO084 BlPogAOwEyqzh1uzu1mjo Rs2GyYeCOMtraHbqWmyVX U9e2TqGl20U22kIOmpPIF oPSIyMCUiIHZh dKjdrz0chC9lEk8+PGNvb CV2yCF2iY9kXlRwOtB5LG gyW724UwLjcVXeWwunQ85 rO7QpiUI+PHRy Tim0HMGdsFbwUP3pfCWkK JcnAy3yOXC7SrZaHhMnET okA7YuVOBwtytckijarCN 0BLIuIOAckW75 Ab3tkOelWc4cMEOuWQN9G QLqiFSfH7UehP9uOyWxSH XeVZLbP8YbhMVhHArjU58 4BSuuWzY4POCt mbWiB5VpWLJenNhlClW6k 6F4Am3HbCjavNKcKM3mVs WjZVw3R7UbRjb0LLUneAp iFI7oqDIcSIdy Dn2hrJwfbXqdIA3kSAPhb uccw446DaXac5vnFGMocM QaGBeoFPW7Y11ik5J0ZEL zSJTnGSJ3oUO4 pN7qtMoyisaxkMAbtVkkq kSxtEmgXBtfSPtxI040TX NihDtnDiWQKvm9Q2McBud 0KYLxyUbwOU3o zHCiSPmfFs9ciTuvnRnmB X8pSWTochqha092WpBdr6 mpAITvqSMjAXbsRWV3C10 lh8W3FARoIPPj OHT0tBL3zP9bhMbfrzwjs GVmdDsgdmVydGljYWwtYW hvA545QAEaxQlyZh3URtd 4G0QnMye4YIXq gCrkOB7wrYDmYXxlGb7bs VdhnEacVG3wSSJsjogtp5 81VhYgx0yoBHJhsGTkHFo fYKH7L01uu9A9 DOPrLLAdKSU4wAX5aH8la GlnbjogbGVmdDsgdmVydG ixBElkNKcxR717IBVgjPz nPlBheWVyOjwv dGQ+HZ68uy12C5WgTxceY yu5RLQxPHU8xSB1rQ5sRG LvRFplo5N9hOH5A0LbnbT wts0kk6kxENGx ZTog (more content not included)... 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 CLINICAL HISTORY: EVLT of bilateral greater saphenous veins. COMMENT: On the right and left, flow is demonstrated in the superficial epigastric vein and in the greater saphenous vein from the junction with the epigastric vein to the saphenofemoral junction. There is lack of flow and lack of compressibility and internal echogenicity within the greater saphenous vein from the calf to the upper thigh, ending proximal to the junction with the epigastric vein. This is consistent with level 1 closure. On the right and left, there is flow and compressibility of the external iliac vein, common femoral vein, and proximal superficial femoral vein. FINAL REPORT Dictated: 03/27/2022 7:51 am Margarito Dumont M.D. Signed (Electronic Signature): 03/27/2022 7:51 am Signed by: Margarito Dumont M.D. Transcribed by: KALYANI Technologist: HW [facility] Consent for Treatmenton 02-28 Consent for Treatment [id number] .00CD:127 [facility] CHEMISTRYOrdered By: SYSTEM SYSTEM on 02-06-2022 Prostate specific Ag [Mass/Vol] ng/mL Normal 0.1 - 3.5 ng/mL [facility] [place] Screening (Age 18+)on 11-16-2021 Adult depression screening assessment No [facility] y [address] DO Work Phone: Fall risk assessment a) No falls within the last year [facility] y [address] DO Work Phone: NEUROPSYCHOLOGY DIRECTOR polysom split nighton NEUROPSYCHOLOGY DIRECTOR polysom split night [facility] Main [address] [address] Sleep Lab Report Signed Patient: Estrada Pfeiffer MR#: [id number] : 1945 Acct:[id number] Age/Sex: 76 / M ADM Date: 08/23/21 Loc: Room: Type: [facility] Attending Dr: Tulio Hinojosa MD Ordering Provider: Tico Frost MD Date of Service: 08/23/21 Copies to: Tico Frost MD Rinku Encinas III, DO INDICATION FOR STUDY: Sleep apnea, treatment initiation. Sleep montage was done in the usual fashion for clinical polysomnography including the continuous electroencephalogram, electrocardiography, electro-oculography, and electromyography of the mentalis (chin) and the tibialis anterior muscles bilaterally. The respiratory battery consisted of measurements of nasal and oral air flow, abdominal and thoracic wall movements and efforts, and nocturnal continuous oximetry. Flow volume loops were monitored to differentiate between central and obstructive respiratory events. Respiratory events were scored as apneas with decreases of airflow of at least 90% baseline with durations of at least 10 seconds while events were scored as hypopneas with decreases of airflow of at least 30% and up to 90% of baseline with durations of at least 10 seconds, followed by desaturations of at least 4%. SLEEP LOG: Not completed. DIAGNOSTIC PORTION SLEEP PARAMETERS: For the diagnostic portion of the night, time in bed was 7.8 hours, and total sleep time was 5.7 hours, giving a sleep efficiency of 73.1 percent. Latencies to sleep stages were abnormal with a sleep latency of 11 minutes and a REM latency of 148.5 minutes (prolonged). Sleep architecture was normal. The patient spent 9.4 percent and 32 minutes in stage N1, 66.4 percent and 226 minutes in stage N2, 0 percent and 0 minutes in stage N3, and 24.2 percent and 82.5 minutes in stage REM. RESPIRATORY SUMMARY: During the diagnostic portion of the sleep study, the patient had a total of 42 respiratory events (0 central, 25 obstructive, 0 mixed, and 17 hypopneas with at least 4 percent desaturation). The apnea-hypopnea index was 7.4. The patient aroused 13 times due to respiratory events for a respiratory arousal index of 2.3. Nocturnal hemoglobin saturations were moderately impaired with a mean oxygen saturation of 92 percent and a range of 70 to 98 percent. The patient spent a total of 6.2 percent of the night below 90% saturation. TREATMENT PORTION RESPIRATORY SUMMARY: During the titration sleep study, the patient was treated with CPAP for control of the previously documented sleep apnea. At the final CPAP pressure of 13 cm, the patient had 70 minutes of total sleep time. At that pressure, the patient had a total of 1 respiratory event (0 central, 1 obstructive, 0 mixed, and 0 hypopneas with at least 4 percent desaturation). The apnea-hypopnea index was 0.9. The patient aroused 1 time due to respiratory events for a respiratory arousal index of 0.9. Nocturnal hemoglobin saturations were normalized at this pressure, with a minimum oxygen saturation of 91 percent. BODY POSITION STATISTICS: The patient spent 100 percent of sleep time on the back with an apnea/hypopnea index of 7.4, and 0 percent of sleep time on the side with an apnea/hypopnea index of n/a, considering all treatment pressures. ELECTROCARDIOGRAM SUMMARY: While on treatment, ECG summary revealed an average heart rate of 57 with no PACs and no PVCs noted. LIMB-MOVEMENT SUMMARY: Measurements of left and right limb movements by anterior tibialis electromyography revealed no periodic limb movements. The patient had a total of 0 limb movements with 0 arousals. The periodic limb movement arousal index was 0.0. IMPRESSION: Obstructive sleep apnea, controlled with CPAP at 13 cm. COMMENTS: The patient had been previously diagnosed with obstructive sleep apnea, and this study does show that good control can be achieved using positive airway pressure treatment. He did seem to tolerate this well. RECOMMENDATIONS: 1. The patient should initiate nasal positive airway pressure at settings of CPAP 13 cm or auto- CPAP, minimum 5, maximum 15. 2. The patient should return to the sleep laboratory to review these results and discuss their implications. 3. The patient should ensure adequate total sleep time and regular sleep-wake cycles. The principles of appropriate sleep hygiene should be encouraged. 4. The patient should continue efforts at progressive weight loss. Even moderate weight loss can result in significant improvement in respiratory events. 5. The patient should be reminded of the medical, accident and cognitive risks associated with sleep apnea. 6. Clinical correlation and follow-up is advised. Transcribed By: CHRIS 08/25/21 2332 Dictated By: Tulio Hinojosa MD 08/24/21 7732 Signed By: (more content not included)... Normal [facility] Tobacco Screening.on 022 Fall risk assessment b) One or more fall s in the last year -[facility] DO Work Phone: Tobacco use status HS b) No [facility] DO Work Phone: Vital Signs Date Time Vital Sign Value Performing Clinician Facility 03-18-2023 10:36-0500 Blood Pressure Location Izaguirre Sarmini [facility] 03-18-2023 10:36-0500 Diastolic blood pressure 82 mm[Hg] Izaguirre Sarmini [facility] 03-18-2023 10:36-0500 Heart rate 70 /min Izaguirre Sarmini [facility] 03-18-2023 10:36-0500 Respiratory rate 18 /min Izaguirre Sarmini [facility] 03-18-2023 10:36-0500 Systolic blood pressure 136 mm[Hg] Izaguirre Sarmini [facility] 03-06-2023 15:22-0500 Diastolic blood pressure 85 mm[Hg] ANJELICA MATTHEW [facility] 03-06-2023 15:22-0500 Heart rate 74 /min ANJELICA MATTHEW [facility] 03-06-2023 15:22-0500 Systolic blood pressure 137 mm[Hg] ANJELICA MATTHEW [facility] 12-17-2022 13:33-0400 Body height 180.34 cm Rinku Encinas Work Phone: [facility] DO Work Phone: 12-17-2022 13:33-0400 Body mass index (BMI) [Ratio] 34.84 kg/m2 Rinku Encinas Work Phone: [facility] DO Work Phone: 12-17-2022 13:33-0400 Body surface area Derived from formula 2.32 m2 Rinku Encinas Work Phone: [facility] DO Work Phone: 12-17-2022 13:33-0400 Body weight 113.31 kg Rinku Encinas Work Phone: [facility] DO Work Phone: 12-17-2022 13:33-0400 Diastolic blood pressure 72 mm[Hg] Rinku Encinas Work Phone: [facility] DO Work Phone: 12-17-2022 13:33-0400 Heart rate 54 /min Rinku Encinas Work Phone: [facility] DO Work Phone: 12-17-2022 13:33-0400 Systolic blood pressure 118 mm[Hg] Rinku Encinas Work Phone: [facility] DO Work Phone: 10-03-2022 13:51-0400 Blood Pressure Location ANJELICA MATTHEW [facility] 10-03-2022 13:51-0400 Diastolic blood pressure 74 mm[Hg] ANJELICA MATTHEW [facility] 10-03-2022 13:51-0400 Heart rate 68 /min ANJELICA MATTHEW [facility] 10-03-2022 13:51-0400 Respiratory rate 16 /min ANJELICA MATTHEW [facility] 10-03-2022 13:51-0400 Systolic blood pressure 132 mm[Hg] ANJELICA CASTRO [facility] 06-24-2022 22:35-0500 Nursing Progress Note Reason Other: portable XR at bedside at this time. Josh Topher [facility] 06-24-2022 21:44-0500 Body temperature 97.7 [degF] Josh Topher [facility] 06-24-2022 21:44-0500 Diastolic blood pressure 91 mm[Hg] Josh Topher [facility] 06-24-2022 21:44-0500 Heart rate 63 /min Josh Topher [facility] 06-24-2022 21:44-0500 Respiratory rate 18 /min Josh Topher [facility] 06-24-2022 21:44-0500 SaO2% (BldA) [Mass fraction] 98 % Josh Topher [facility] 06-24-2022 21:44-0500 Systolic blood pressure 178 mm[Hg] Josh Topher [facility] 05-31-2022 09:15-0500 Body height 180.34 cm Rinku Encinas Work Phone: [facility] DO Work Phone: 05-31-2022 09:15-0500 Body mass index (BMI) [Ratio] 35.29 kg/m2 Rinku Encinas Work Phone: [facility] DO Work Phone: 05-31-2022 09:15-0500 Body surface area Derived from formula 2.33 m2 Rinku Encinas Work Phone: [facility] DO Work Phone: 05-31-2022 09:15-0500 Body weight 114.76 kg Rinku Encinas Work Phone: [facility] DO Work Phone: 05-31-2022 09:15-0500 Diastolic blood pressure 84 mm[Hg] Rinku Encinas Work Phone: [facility] DO Work Phone: 05-31-2022 09:15-0500 Heart rate 68 /min Rinku Encinas Work Phone: [facility] DO Work Phone: 05-31-2022 09:15-0500 Systolic blood pressure 122 mm[Hg] Rinku Encinas Work Phone: [facility] [employer] 250 DO Work Phone: 01-31-2022 16:00-0400 Body height 180.34 cm Priscila Mccormack Other [employer] Other 01-31-2022 16:00-0400 Body mass index (BMI) [Ratio] 35.28 kg/m2 Priscila Mccormack Other [facility] Other 01-31-2022 16:00-0400 Body temperature 97.1 [degF] Priscila Mccormack Other [facility] Other 01-31-2022 16:00-0400 Body weight 114.76 kg Priscila Mccormack Other [facility] Other 01-31-2022 16:00-0400 Diastolic blood pressure 78 mm[Hg] Priscila Mccormack Other [facility] Other 01-31-2022 16:00-0400 SaO2% (BldA) [Mass fraction] 96 % Priscila Mccormack Other [facility] Other 01-31-2022 16:00-0400 Systolic blood pressure 123 mm[Hg] Priscila Mccormack Other [facility] Other 01-29-2022 09:21-0400 Blood Pressure Location [facility] Montoya [facility] 01-29-2022 09:21-0400 Diastolic blood pressure 80 mm[Hg] Milla Montoya [facility] 01-29-2022 09:21-0400 Heart rate 90 /min Milla Montoya [facility] 01-29-2022 09:21-0400 SaO2% (BldA) [Mass fraction] 100 % [facility] Montoya [facility] 01-29-2022 09:21-0400 Systolic blood pressure 146 mm[Hg] Milla Montoya [facility] 12-11-2021 23:00-0400 Diastolic blood pressure 80 mm[Hg] Reji Dickinson [facility] 12-11-2021 23:00-0400 Heart rate 58 /min Reji Dickinson [facility] 12-11-2021 23:00-0400 SaO2% (BldA) [Mass fraction] 98 % Reji Dickinson [facility] 12-11-2021 23:00-0400 Systolic blood pressure 148 mm[Hg] Reji Dickinson [facility] 12-11-2021 22:33-0400 Body temperature 98.24 [degF] Reji Dickinson [facility] 12-11-2021 22:33-0400 Diastolic blood pressure 76 mm[Hg] Reji Dickinson [facility] 12-11-2021 22:33-0400 Heart rate 57 /min Reji Dickinson [facility] 12-11-2021 22:33-0400 Respiratory rate 16 /min Reji Dickinson [facility] 12-11-2021 22:33-0400 SaO2% (BldA) [Mass fraction] 97 % Reji Dickinson [facility] 12-11-2021 22:33-0400 Systolic blood pressure 159 mm[Hg] Reji Dickinson [facility] 11-16-2021 09:24-0400 Body height 180.34 cm Rinku Encinas Work Phone: [facility] [employer] 250 DO Work Phone: 11-16-2021 09:24-0400 Body mass index (BMI) [Ratio] 35.29 kg/m2 Rinku Encinas Work Phone: [facility] [employer] 250 DO Work Phone: 11-16-2021 09:24-0400 Body surface area Derived from formula 2.33 m2 Rinku Encinas Work Phone: [facility] [employer] 250 DO Work Phone: 11-16-2021 09:24-0400 Body weight 114.76 kg Rinku Encinas Work Phone: [facility] [employer] 250 DO Work Phone: 11-16-2021 09:24-0400 Diastolic blood pressure 84 mm[Hg] Rinku Sindy Encinas Work Phone: [facility] DO Work Phone: 11-16-2021 09:24-0400 Heart rate 62 /min Rinku R Encinas Work Phone: [facility] DO Work Phone: 11-16-2021 09:24-0400 Systolic blood pressure 122 mm[Hg] Rinku R Encinas Work Phone: [facility] DO Work Phone: 05-08-2021 13:46-0500 Diastolic blood pressure 84 mm[Hg] Rinku R Encinas Work Phone: [facility] DO Work Phone: 05-08-2021 13:46-0500 Systolic blood pressure 126 mm[Hg] Rinku R Encinas Work Phone: [facility] DO Work Phone: 05-08-2021 13:41-0500 Diastolic blood pressure 93 mm[Hg] Rinku R Encinas Work Phone: [facility] DO Work Phone: 05-08-2021 13:41-0500 Systolic blood pressure 132 mm[Hg] Rinku R Encinas Work Phone: [facility] DO Work Phone: 05-08-2021 13:39-0500 Body height 180.34 cm Rinku R Encinas Work Phone: [facility] DO Work Phone: 05-08-2021 13:39-0500 Body mass index (BMI) [Ratio] 35.01 kg/m2 Rinku R Encinas Work Phone: [facility] DO Work Phone: 05-08-2021 13:39-0500 Body surface area Derived from formula 2.32 m2 Rinku Sindy LarsonEncinas Work Phone: [facility] DO Work Phone: 05-08-2021 13:39-0500 Body weight 113.85 kg Rinku Sindy Encinas Work Phone: [facility] DO Work Phone: 05-08-2021 13:39-0500 Diastolic blood pressure 87 mm[Hg] Rinku Larsoners Work Phone: [facility] DO Work Phone: 05-08-2021 13:39-0500 Heart rate 60 /min Rinku Sindy Encinas Work Phone: [facility] DO Work Phone: 05-08-2021 13:39-0500 Systolic blood pressure 136 mm[Hg] Rinku Larsoners Work Phone: [facility] DO Work Phone: Encounters Encounter Date Encounter Type Care Provider Facility Start: 03-12-2024 ambulatory PA-C ANJELICA CASTRO Facility: [facility] Start: 03-25-2023 End: 03-25-2023 ambulatory KAYLI PARSON Not Available Start: 03-18-2023 End: 03-19-2023 ambulatory Rinku R Encinas Facility:[facility] Start: 03-18-2023 End: 03-18-2023 Patient encounter procedure Zina Romanmini [facility] Start: 03-06-2023 End: 03-07-2023 ambulatory PA-C ANJELICA CASTRO Facility: [facility] Start: 03-06-2023 End: 03-06-2023 Patient encounter procedure ANJELICA CASTRO [facility] [place] Start: 03-05-2023 End: 03-06-2023 ambulatory GLORIA CASTRO [place] Start: 03-05-2023 End: 03-05-2023 Patient encounter procedure ANJELICA CASTRO [facility] Start: 02-06-2023 End: 02-07-2023 ambulatory Todd BRAXTON Facility[place] Start: 02-06-2023 End: 02-06-2023 Lab Drop off Todd BRAXTON [facility] Start: 02-06-2023 End: 02-06-2023 Patient encounter procedure Todd BRAXTON [facility] Start: 12-17-2022 Office outpatient vi sit 25 minutes Rinku Encinas Work Phone: [facility] DO Work Phone: Start: 12-17-[address] Rinku Encinas III Facility: Start: 11-19-2022 ambulatory Remyted Montoya Facility: [facility] Start: 10-16-2022 End: 10-17-2022 ambulatory Todd BRAXTON Facility[place] Start: 10-16-2022 End: 10-16-2022 Patient encounter procedure Todd BRAXTON [facility] Start: 10-11-2022 End: 10-12-2022 ambulatory NAVARRO-C ANJELICA CASTRO [place] [place] Start: 10-11-2022 End: 10-11-2022 Patient encounter procedure ANJELICA CASTRO [facility] Start: 10-03-2022 End: 10-04-2022 ambulatory PA-C ANJELICA CASTRO Facility[place] [place] Start: 10-03-2022 End: 10-03-2022 Lab Drop off ANJELICA CASTRO [facility] Start: 10-03-2022 End: 10-03-2022 Patient encounter procedure ANJELICA CASTRO [facility] [place] Start: 09-25-2022 Rx Renewal [facility]arris [facility] Work Phone: Start: 07-02-2022 End: 07-03-2022 ambulatory Tulio Vaughan Facility[place] [place] [facility] Start: 07-02-2022 End: 07-02-2022 Patient encounter procedure Tulio Vaughan [facility] Start: 06-24-2022 End: 06-25-2022 Emergency department patient visit Josh SParveen Obando Facility[place] [place] [facility] Start: 06-24-2022 End: 06-24-2022 Emergency department patient visit Josh TerrellParveen Topher [facility] Start: 06-14-2022 End: 06-14-2022 ambulatory Priscila Mccormack Other [employer] [facility] [employer] Other Start: 06-14-2022 Telephone encounter Priscila Mccormack [facility] Start: 05-31-[address] Summer Deshpande Facility: Start: 05-31-2022 Office outpatient vi sit 25 minutes Rinku Encinas Work Phone: [facility] [employer] 250 DO Work Phone: Start: 05-30-2022 End: 02-02-2023 ambulatory Summer Deshpande Facility[place] [place] Start: 05-30-2022 End: 05-30-2022 Patient encounter procedure Summer Deshpande [facility] Start: 03-26-2022 End: 03-27-2022 ambulatory Milla Montoya Facility[place] [place] [place] Start: 02-06-2022 End: 02-06-2022 Patient encounter procedure Todd Callahan ANTHONY [facility] Start: 01-31-2022 End: 01-31-2022 ambulatory Rinku R Encinas III III Facility:[facility] Start: 01-31-2022 End: 01-31-2022 Patient encounter procedure DO Rinku Encinas III Work Phone: [facility] Start: 01-31-2022 End: 01-31-2022 ambulatory DO Rinku R Encinas III Work Phone: [facility] Work Phone: Start: 01-31-2022 [facility] Start: 01-29-2022 End: 01-29-2022 Patient encounter procedure Milla Montoya [facility] Start: 01-18-2022 End: 01-18-2022 Patient encounter procedure Milla Montoya [facility] Start: 12-11-2021 End: 12-11-2021 Emergency department patient visit Reji Dickinson [facility] Start: 11-16-2021 Office outpatient vi sit 25 minutes Rinku R Encinas Work Phone: [place] [address] DO Work Phone: Start: 10-25-2021 Rx Renewal Rinku Lee rs Work Phone: -[facility] DO Work Phone: Start: 08-23-2021 End: 08-23-2021 ambulatory Tulio Hinojosa Facility:[facility] Start: 08-23-2021 End: 08-23-2021 Patient encounter procedure DO Rinku Encinas III Work Phone: [facility] Start: 05-08-2021 Office outpatient vi sit 25 minutes Rinku Sindy Encinas Work Phone: -[facility] DO Work Phone: Procedures Date Procedure Procedure Detail Performing Clinician Start: 10-16-2022 Cystourethroscopy wi th dilation of urethral stricture Todd ANTHONY Start: 02-15-2022 Endovenous laser abl ation of varicose vein Summer Deshpande Comment on above: bilateral Start: 06-27-2021 Total knee replacement Reji Alok Start: 06-11-2017 Cystoscopy ANJELICA ELENA Comment on above: 12/02/07, 05/1013, 06/11 17 Start: 04-13-2016 left total knee arthroplasty Reji Dickinson Start: 02-23-2014 left shoulder arthro scopy with extensive glenohumeral debridement, subacromial decompression, partial distal clavicectomy, mini-open rotator cuff repair Reji Alok Start: 07-12-2011 Brachytherapy ANJELICA CASTRO Start: 07-12-2011 Implantation of radi oactive seed into prostate Reji Dickinson Start: 08-12-2007 Laser ablation of prostate Reji Dickinson Start: 07-15-2007 Cystoscopy Reji terrell Comment on above: 12/02/07, 05/1013, 06/11 17 Start: 07-15-2007 Urodynamic studies Jonathan Dickinson Start: 05-24-2000 Transrectal biopsy o f prostate using ultrasound guidance Reji Dickinson Comment on above: 01/23/11 Arthroplasty of knee Rinku Sindy LarsonEncinas Work Phone: Comment on above: RIGHT AND LEFT; Cardiac catheterization Roll and R Encinas Work Phone: Herniated structure (morphologic abnormality) Reji Dickinson Malignant tumor of p rostate (disorder) Reji Dickinson Comment on above: radiation seed impla nt Percutaneous translu luciana coronary angioplasty Rinku Encinas Work Phone: Procedure on neck Rinku Sidny Encinas Work Phone: Procedure on prostate Raquelan d Sindy Encinas Work Phone: Sleep studies Reji Dickinson Stented coronary art krista (finding) Reji Alok Total colonoscopy RinkuMimi Larsoners Work Phone: Vascular surgery procedure R atilio Encinas Work Phone: Plan of Treatment Date Care Activity Detail Author Start: 06-25-2023 FUV, Provider: Summer Deshpande, Status: Pen, Time: 9:20 AM FUV, Provider: Summer Deshpande, Status: Pen, Time: 9:[address] [facility] DO Work Phone: Start: 11-29-2022 FUV, Provider: Summer Deshpande, Status: Pen, Time: 9:10 AM FUV, Provider: Summer Deshpande, Status: Pen, Time: 9:[address] [facility] DO Work Phone: Start: 05-31-2022 FUV, Provider: Summer Deshpande, Status: Pen, Time: 9:00 AM FUV, Provider: Summer Deshpande, Status: Pen, Time: 9:00 AM [facility] 250 DO Work Phone: Start: 11-16-2021 FUV, Provider: Summer Deshpande, Status: Pen, Time: 9:00 AM FUV, Provider: Summer Deshpande, Status: Pen, Time: 9:00 AM [facility] 250 DO Work Phone: Immunizations Immunization Date Immunization Notes Care Provider [facility] 02-19-2023 influenza virus vaccine, unspecified formulation ANJELICA CASTRO [facility] 02-05-2022 Fluzone High-Dose Quadrivalent 0.7 ML Intramuscular Suspension Prefilled Syringe Rinku Encinas Work Phone: [place] [address] DO Work Phone: 02-05-2022 influenza virus vaccine, unspecified formulation Wheeler Deshpande [facility] 01-16-2022 SARS-CoV-2 (COVID-19 ) [id number] Wheeler Deshpande [facility] 03-01-2021 Moderna COVID-19 Vaccine 100 MCG/0.5ML Intramuscular Suspension Rinku Encinas Work Phone: [place] [address] DO Work Phone: 02-21-2021 influenza virus vaccine, unspecified formulation Wheeler Deshpande [facility] 02-21-2021 influenza, high dose seasonal, preservative-free Rinku Encinas Work Phone: [facility] 250 DO Work Phone: 12-29-2020 tetanus toxoid, redu ivan diphtheria toxoid, and acellular pertussis vaccine, adsorbed Rinku Encinas Work Phone: [facility] 250 DO Work Phone: 06-22-2020 Moderna COVID-19 Vaccine 100 MCG/0.5ML Intramuscular Suspension Rinku Encinas Work Phone: [place] [address] DO Work Phone: Comment on above: Reason for Medicatio n: Other (see comment) 05-25-2020 Moderna COVID-19 Vaccine 100 MCG/0.5ML Intramuscular Suspension Rinku Encinas Work Phone: [place] [address] DO Work Phone: Comment on above: Reason for Medicatio n: Other (see comment) 02-08-2020 influenza virus vaccine, unspecified formulation Summer Deshpande [facility] 02-08-2020 influenza, high dose seasonal, preservative-free Rinku Encinas Work Phone: [place] [address] DO Work Phone: 05-16-2018 pneumococcal conjuga te vaccine, 13 valent Rinku Encinas Work Phone: [facility] 05-08-2018 pneumococcal conjuga te vaccine, 13 valent Rinku Encinas Work Phone: [place] [address] DO Work Phone: 04-29-2018 influenza virus vaccine, unspecified formulation Rinku Encinas Work Phone: [facility] 250 DO Work Phone: 04-28-2018 influenza virus vaccine, unspecified formulation Wheeler Deshpande [facility] 05-08-2017 pneumococcal polysaccharide vaccine, 23 valent Rinku Larsoners Work Phone: [place] [address] DO Work Phone: 02-27-2017 influenza virus vaccine, unspecified formulation Rinku R Encinas Work Phone: [place] [address] DO Work Phone: 02-16-2017 influenza virus vaccine, unspecified formulation Wheeler Deshpande [facility] 02-16-2017 influenza, seasonal, injectable, preservative free Rinku Encinas Work Phone: [place] [address] DO Work Phone: 05-08-2016 influenza virus vaccine, unspecified formulation Rinku R Encinas Work Phone: [place] [address] DO Work Phone: 01-30-2016 influenza virus vaccine, unspecified formulation Wheeler Deshpande [facility] 01-30-2016 influenza, seasonal, injectable Rinku R Encinas Work Phone: [place] [address] DO Work Phone: 01-30-2016 pneumococcal polysaccharide vaccine, 23 valent Rinku R Encinas Work Phone: [facility] 03-29-2015 pneumococcal vaccine , unspecified formulation Rinku R Encinas Work Phone: [place] [address] DO Work Phone: 02-27-2015 influenza virus vaccine, unspecified formulation Rinku R Encinas Work Phone: [place] [address] DO Work Phone: 02-22-2015 influenza virus vaccine, unspecified formulation Wheeler Deshpande [facility] 04-16-2014 pneumococcal polysaccharide vaccine, 23 valent Reji Alok [facility] Comment on above: Early/Late Reason: N ursing Judgment 03-03-2014 influenza virus vaccine, unspecified formulation Rinku Larsoners Work Phone: [place] [address] DO Work Phone: 02-16-2014 influenza virus vaccine, unspecified formulation Wheeler Deshpande [facility] 02-16-2014 influenza, seasonal, injectable Rinku Sindy LarsonEncinas Work Phone: [place] [address] DO Work Phone: 02-18-2013 influenza virus vaccine, unspecified formulation Wheeler Deshpande [facility] 02-18-2013 influenza, high dose seasonal, preservative-free Rinku Encinas Work Phone: [place] [address] DO Work Phone: 01-27-2013 influenza virus vaccine, unspecified formulation Rinku Sindy LarsonEncinas Work Phone: [place] [address] DO Work Phone: 01-04-2013 zoster vaccine, live Wheeler Deshpande [facility] 12-28-2012 zoster vaccine, live Rinku R Encinas Work Phone: [place] [address] DO Work Phone: NEGATED: Highlighted row has not occurred!02-18-2023 influenza virus vaccine, unspecified formulation ANJELICA CASTRO [facility] Payers Date Payer Category Payer Private Health Insurance 101 [id number] 2021 Self-pay [id number] 1945 Unknown [id number] 2.16. [id number] 1945 Unknown [id number] 2.16. 840.1.227895.3.579.2.356 1945 Unknown [id number] 2.16.8 40.1.890139.3.579.2.72 1945 Unknown [id number] 2.16.8 40.1.313518.3.579.2.727 1945 Unknown [id number] 2.16.8 40.1.491330.3.579.2.727 1945 Unknown [id number] 2.16.8 40.1.288466.3.579.2.727 1945 Unknown [id number] 2.16.8 40.1.343927.3.579.2.727 1945 Unknown [id number] 2.16.8 40.1.272655.3.579.2.727 1945 Unknown [id number] 2.16.8 40.1.011995.3.579.2.727 1945 Unknown [id number] 2.16.8 40.1.182885.3.579.2.727 1945 Unknown [id number] 2.16.8 40.1.449752.3.579.2.72 1945 Unknown [id number] 2.16.8 40.1.265920.3.579.2.727 1945 Unknown [id number] 2.16.8 40.1.443579.3.579.2.72 1945 Unknown [id number] 2.16.8 40.1.880231.3.579.2.727 1945 Unknown [id number] 2.16.8 40.1.025860.3.579.2.727 1945 Unknown [id number] 2.16.8 40.1.061349.3.579.2.727 1945 Unknown [id number] 2.16.840 .1.005153.3.579.2.1259 Private Health Insurance [facility] [id number] Unknown [employer] Unknown [id number] 2.16.8 40.1.366411.3.579.2.531 Unknown [id number] 2.16.8 40.1.422053.3.579.2.531 Social History Date Type Detail Facility No alcohol use No alcohol use [facility] 250 DO Work Phone: Comment on above: 1-2 cups of coffee; Start: 1945 Sex Assigned At Male [facility] Comment on above: Denies. Sex Assigned At Male [facility] Tobacco smoking status No Smokin g Status Entered [facility] Start: 02-07-2022 End: 03-18-2023 Tobacco smoking status Never smoked tobacco (finding) [facility] Tobacco smoking status Never [facility] Medical Equipment Procedure Code Equipment Code Equipment Origin al Text Equipment Identifier Dates KNEE TOTAL ROBOT ARTHROPLASTY Tulio Vaughan DO 06/27/21 Non Biological Knee R {[id number]{ [id number]{17}[id number] 84[address] [facility] Start: 06-27-2021 Functional Status Date Assessment Result Facility 03-18-2023 Functional Status N/A [facility] 03-06-2023 Functional Status N/A [facility] 10-16-2022 Functional Status N/A [facility] 10-03-2022 Functional Status N/A [facility] Robert 06-24-2022 Functional Status N/A [facility] 01-29-2022 Functional Status No [facility] 12-11-2021 Functional Status N/A [facility] Clinical Notes 04-29-2011 to 03-06-2023 Note Date & Type Note Facility 03-06-2023 Hospital Discharge instructions Patient Education 03/06/2023 15:42:32 Prostate Cancer Screening Prostate Cancer Screening Prostate cancer screening is testing that is done to check for the presence of prostate cancer in men. The prostate gland is a walnut-sized gland that is located below the bladder and in front of the rectum in males. The function of the prostate is to add fluid to semen during ejaculation. Prostate cancer is one of the most common types of cancer in men. Who should have prostate cancer screening? Screening recommendations vary based on age and other risk factors, as well as between the professional organizations who make the recommendations. In general, screening is recommended if: You are age 50 to 70 and have an average risk for prostate cancer. You should talk with your health care provider about your need for screening and how often screening should be done. Because most prostate cancers are slow growing and will not cause , screening in this age group is generally reserved for men who have a 10- to 15-year life expectancy. You are younger than age 50, and you have these risk factors: ?Having a father, brother, or uncle who has been diagnosed with prostate cancer. The risk is higher if your family member's cancer occurred at an early age or if you have multiple family members with prostate cancer at an early age. ?Being a male who is Black or is of [place] or sub-Saharan descent. In general, screening is not recommended if: You are younger than age 40. You are between the ages of 40 and 49 and you have no risk factors. You are 70 years of age or older. At this age, the risks that screening can cause are greater than the benefits that it may provide. If you are at high risk for prostate cancer, your health care provider may recommend that you have screenings more often or that you start screening at a younger age. How is screening for prostate cancer done? The recommended prostate cancer screening test is a blood test called the prostate-specific antigen (PSA) test. PSA is a protein that is made in the prostate. As you age, your prostate naturally produces more PSA. Abnormally high PSA levels may be caused by: Prostate cancer. An enlarged prostate that is not caused by cancer (benign prostatic hyperplasia, or BPH). This condition is very common in older men. A prostate gland infection (prostatitis) or urinary tract infection. Certain medicines such as male hormones (like testosterone) or other medicines that raise testosterone levels. A rectal exam may be done as part of prostate cancer screening to help provide information about the size of your prostate gland. When a rectal exam is performed, it should be done after the PSA level is drawn to avoid any effect on the results. Depending on the PSA results, you may need more tests, such as: A physical exam to check the size of your prostate gland, if not done as part of screening. Blood and imaging tests. A procedure to remove tissue samples from your prostate gland for testing (biopsy). This is the only way to know for certain if you have prostate cancer. What are the benefits of prostate cancer screening? Screening can help to identify cancer at an early stage, before symptoms start and when the cancer can be treated more easily. There is a small chance that screening may lower your risk of dying from prostate cancer. The chance is small because prostate cancer is a slow-growing cancer, and most men with prostate cancer from a different cause. What are the risks of prostate cancer screening? The main risk of prostate cancer screening is diagnosing and treating prostate cancer that would never have caused any symptoms or problems. This is called overdiagnosisand overtreatment. PSA screening cannot tell you if your PSA is high due to cancer or a different cause. A prostate biopsy is the only procedure to diagnose prostate cancer. Even the results of a biopsy may not tell you if your cancer needs to be treated. Slow-growing prostate cancer may not need any treatment other than monitoring, so diagnosing and treating it may cause unnecessary stress or other side effects. Questions to ask your health care provider When should I start prostate cancer screening? What is my risk for prostate cancer? How often do I need screening? What type of screening tests do I need? How do I get my test results? What do my results mean? Do I need treatment? Where to find more information The [employer]: www.cancer.org [employer]: www.auanet.org Contact a health care provider if: You have difficulty urinating. You have pain when you urinate or ejaculate. You have blood in your urine or semen. You have pain in your back or in the area of your prostate. Summary Prostate cancer is a common type of cancer in men. The prostate gland is located below the bladder and in front of the rectum. This gland adds fluid to semen during ejaculation. Prostate cancer screening may identify cancer at an early stage, when the cancer can be treated more easily and is less likely to have spread to other areas of the body. The prostate-specific antigen (PSA) test is the recommended screening test for prostate cancer, but it has associated risks. Discuss the risks and benefits of prostate cancer screening with your health care provider. If you are age 70 or older, the risks that screening can cause are greater than the benefits that it may provide. This information is not intended to replace advice given to you by your health care provider. Make sure you discuss any questions you have with your health care provider. Document Revised: 10/09/2021 Document Reviewed: 10/09/2021 [employer] Patient Education 2022 [employer]. Follow Up Care 02/07/2022 09:23:28 With:MATTHEW CASTRO, ANJELICA Meza, URL Address: [facility] [address] [facility] [place] [address] [id number] When: Unknown Comments:2 yr w/ PSA [facility] [place] 02-04-2023 Note - From: Jane Li I To: [facility] - Administrative; Sent: 11/26/2022 15:31:32 EDT Show up: 01/27/2023 15:31:00 EDT Subject: Colonoscopy Recall Reminder/Recall Please call and schedule in office with Dr. Ugalde/Kera for a surveillance colonoscopy. Patient scheduled for 02/19/[address] Ugalde. [facility] 10-16-2022 Evaluation + Plan note Extrac alesha from: Title:EU Local Male Cystosco py w/ or w/o UD - FT Author:Todd BRAXTON MD Date:10/16/22 Patient: ESTRADA PFEIFFER Age: 77 years Sex: Male : 1945 Associated Diagnoses: None Author: Todd BRAXTON MD Procedure Operative Information Details: Date/ Time: 10/16/2022 09:26:00. Pre-Op Dx: Gross Hematuria - R31.0, Hx of Prostate CA - Z85.46. Post-Op Dx: Same. Anesthesia Type: Local. Procedure: Local Cystoscopy. Complications: None. Risks/Benefits/Informed Consent: Surgical risks, benefits, details of the procedure have been explained to the patient, Full informed consent has been obtained. Intraoperative Information Prepped: Patient is brought back to the endoscopy suite, Patient is placed in supine position, Patient prepped in the usual fashion with Betadine solution, 2% Xylocaine Jelly is placed per Urethra, After waiting several minutes the Cystoscope is introduced. The Urethra is: Normal. The Prostatic Urethra is: Unobstructed, Radiation changes with heightened vascularity.. The Bladder is: Trabeculated (Severe (3), Open diverticuli diffusely. No bladder tumors.). The ureteral orifices: Show efflux of clear urine. Specimens Removed: Voided specimen sent for FISH and Cytology test. Devices Implanted: None. Removal: Cystoscope is removed, The patient tolerated it well. Postoperative Information Discharge: Patient is discharged home with antibiotic coverage, Follow up arranged. Addendum by Jeremy BRAXTON MD on October 16, 2022 9:28 EDT If he develops gross hematuria in the ne ar future, we then will have to do cystoscopy, fulguration, bilateral ureteroscopy and pyeloscopy under anesthesia since we have been unable to do a urogram due to his allergy to IV contrast. Future Appointments Appointment Date:02/13/2023 08:30:00 AM Scheduled Provider:Todd BRAXTON MD Location:[facility] Appointment Type:URO Office Visit Diagnostic Tests Pending * [facility] Fish and Urine Cyto ([facility]) 10/16/22 [facility]06-20-2023 Note [id number]:127[facility] 10-16-2022 Hospital Discharge instructions Patient Education 10/16/2022 09:24:35 EU - Cystoscopy Discharge Instructions (CUSTOM) Cystoscopy Voiding after the procedure: there may be some pain, burning, urgency, frequency and blood tinged urine following the procedure. These symptoms usually resolve within 2-5 days. Drink the amount of fluid it takes to keep the urine pink to yellow or clear in color. Drinking enough water and fluids will help to ease any discomfort after your procedure. If you are having problems that seem out of the ordinary, please call. If unable to contact your physician and you feel it is an emergency, go to the nearest emergency room or call 911 Diet you may resume your normal diet. Activity you may resume your normal activities Call if you have a fever over 100 degrees. Follow Up Care 10/09/2022 10:31:36 With:Todd BRAXTON Address: [facility] [address] [place] [address] Business (1) When: Unknown Comments:Keep scheduled appointment [facility]06-20-2023 NoteCustom Cystoscopy ? Voiding after the procedure: there may be some pain, burning, urgency, frequency and blood tingedurine following the procedure. These symptoms usually resolve within 2-5 days. Drink the amount of fluid it takes to keep the urine pink to yellow or clear in color. Drinking enough water and fluids will help to ease any discomfort after your procedure. ? If you are having problems that seem out of the ordinary, please call. ? If unable to contact your physician and you feel it is an emergency, go to the nearest emergency room or call 911 ? Diet ? you may resume your normal diet. ? Activity ? you may resume your normal activities ? Call if you have a fever over 100 degrees.[facility] 10-03-2022 Hospital Discharge instructions Patient Education 10/03/2022 13:47:35 Hematuria, Adult Hematuria, Adult Hematuria is blood in the urine. Blood may be visible in the urine, or it may be identified with a test. This condition can be caused by infections of the bladder, urethra, kidney, or prostate. Otherpossible causes include: Kidney stones. Cancer of the urinary tract. Too much calcium in the urine. Conditions that are passed from parent to child (inherited conditions). Exercise that requires a lot of energy. Infections can usually be treated with medicine, and a kidney stone usually will pass through your urine. If neither of these is the cause of your hematuria, more tests may be needed to identify the cause of your symptoms. It is very important to tell your health care provider about any blood in your urine, even if it ispainless or the blood stops without treatment. Blood in the urine, when it happens and then stops and then happens again, can be a symptom of a very serious condition, including cancer. There is no pain in the initial stages of many urinary cancers. Follow these instructions at home: Medicines Take jhmb-cef-ftrstvy and prescription medicines only as told by your health care provider. If you were prescribed an antibiotic medicine, take it as told by your health care provider. Do notstop taking the antibiotic even if you start to feel better. Eating and drinking Drink enough fluid to keep your urine pale yellow. It is recommended that you drink 3 4 quarts (2.83.8 L) a day. If you have been diagnosed with an infection, drinking cranberry juice in addition tolarge amounts of water is recommended. Avoid caffeine, tea, and carbonated beverages. These tend to irritate the bladder. Avoid alcohol because it may irritate the prostate (in males). General instructions If you have been diagnosed with a kidney stone, follow your health care provider's instructions about straining your urine to catch the stone. Empty your bladder often. Avoid holding urine for long periods of time. If you are female: ?After a bowel movement, wipe from front to back and use each piece of toilet paper only once. ?Empty your bladder before and after sex. Pay attention to any changes in your symptoms. Tell your health care provider about any changes or any new symptoms. It is up to you to get the results of any tests. Ask your health care provider, or the department that is doing the test, when your results will be ready. Keep all follow-up visits. This is important. Contact a health care provider if: You develop back pain. You have a fever or chills. You have nausea or vomiting. Your symptoms do not improve after 3 days. Your symptoms get worse. Get help right away if: You develop severe vomiting and are unable to take medicine without vomiting. You develop severe pain in your back or abdomen even though you are taking medicine. You pass a large amount of blood in your urine. You pass blood clots in your urine. You feel very weak or like you might faint. You faint. Summary Hematuria is blood in the urine. It has many possible causes. It is very important that you tell your health care provider about any blood in your urine, even ifit is painless or the blood stops without treatment. Take mgvk-hvz-kyubdab and prescription medicines only as told by your health care provider. Drink enough fluid to keep your urine pale yellow. This information is not intended to replace advice given to you by your health care provider. Make sure you discuss any questions you have with your health care provider. Document Revised: 12/14/2020 Document Reviewed: 12/14/2020 [employer] Patient Education 2022 [employer]. Follow Up Care 09/06/2022 09:26:45 With:ANJELICA CASTRO PA-C, URL Address: [address] [place] [address] When: Unknown [facility] 02-27-2023 Hospital Discharge instructions Patient Education 06/24/2022 23:35:06 How To Use a Sling How To Use a Sling A sling is a type of hanging bandage that is worn around the neck to protect an injured arm, shoulder, or other body part. A sling may be needed to prevent movement of (to immobilize) the injured body part while it heals. Keeping the injured body part still can lessen pain and speed up healing. A health care provider may recommend using a sling: To treat a broken arm or collarbone. To treat a shoulder injury. After surgery. What are the risks? In general, wearing a sling helps with safe healing. However, in some cases, wearing a sling the wrong way can: Make the injury worse. Cause stiffness or numbness. Affect blood flow (circulation) in the arm and hand. This can cause tingling or numbness in the fingers or hands. How to use a sling Follow instructions from your health care provider about how and when to wear your sling. Your health care provider will show you or tell you: How to put on the sling. How to adjust the sling. When and how often to wear the sling. How to remove the sling. The way that you need to use a sling depends on your injury. Unless your health care provider givesyou different instructions, you should: Wear the sling so that your elbow bends to the shape of a capital letter L (90 degrees, or a right angle). Make sure the sling supports your wrist and your hand. Adjust the sling if your fingers or hand start to tingle or feel numb. Follow these instructions at home: Try to avoid moving your arm. Do not twist, lift, or move your arm in a way that could make your injury worse. Do not lean on your arm while wearing a sling. Do not lift anything with the hand or arm that is in the sling. Contact a health care provider if: You have bruising, swelling, or pain that gets worse. You have pain that does not get better with medicine. You have a fever. Your sling is not supporting your arm properly. Your sling gets damaged. Get help right away if you: Have numbness or tingling in your fingers. Notice that your fingers turn blue or feel cold to the touch. Cannot control bleeding from your injury. Have shortness of breath. Summary A sling is a type of hanging bandage that is worn around the neck to protect an injured arm, shoulder, or other body part. A sling may be needed to prevent movement of (to immobilize) the injured body part while it heals. The way that you use a sling depends on your injury. Carefully follow instructions from your healthcare provider. A good general rule is to wear the sling so that your arms bends 90 degrees (at a right angle) at the elbow. That is like the shape of a capital letter L. Make sure you know which problems should cause you to contact your health care provider or get helpright away. This information is not intended to replace advice given to you by your health care provider. Make sure you discuss any questions you have with your health care provider. Document Released: 11/27/2004 Document Revised: 03/28/2018 Document Reviewed: 03/06/2018 [employer] Patient Education 2020 [employer]. Follow Up Care 06/24/2022 21:38:40 With:Tulio Vaughan Address: [address] [place] [phone]- Business (1) When:06/27/2022 With:Rinku Encinas Address: [address] [place] [address] [facility] [place] [address] Business (1) When:Within 3 Day(s) [facility]10-05-2022 Evaluation note* Encounter Date Diagnosis Assessment Notes Treatment Notes Treatment Clinical Notes Jan, Obstructive sleep apnea (ICD-10 - G47.33) Fortunately patient is using and benefiting from treatment. Download was reviewed with patient. His AHI is elevated at 11.7. We will go ahead and increase his pressure settings to 15/8 to eliminate some breakthrough apneas, an order was sent to the [facility] to have these completed. A prescription was also sent to the [facility] for new supplies throughout the year, as ewll as a request to change humidity setting to auto. I advised patient to move the machine away from the AC unit. We will go forward with a download in 1 month to reevaluate KATHY, he will call sooner if problems tolerating pressure. He was encouraged to continue to use his / her machine nightly throughout the entire night as this does provide clinical benefit. He will follow-up in sleep clinic in 1 year or sooner pending results of download. Jan, BMI 35.0-35.9,adult (ICD-10 - Z68.35) Patient's weight has increased since last visit, positive effects of weight loss on KATHY were reviewed. He was advised to follow diet modification and increase activity. We will continue to monitor Jan, Essential hypertension (ICD-10 - I10) Positive effects of controlled KATHY and hypertension were reviewed. Control of sleep apnea will frequently have a positive effect on blood pressure control, and may additionally reduce blood pressure lability. Blood pressure control frequently worsens with uncontrolled sleep apnea, and improves with effective utilization of treatment. Jan, Other Call if any questions or problems. For Sleep Apnea: Patient is advised to work on healthy diet choices and appropriate servings, weight control, regular exercise as directed, and reduce fat intake. Use machine regularly, and keep up with mask changes as needed. Call if problems with mask toleration, increased sleepiness, or poor response to treatment. Take medication as prescribed, keep follow up appointments, get any testing that's been ordered in a timely fashion. Do not smoke The positive effects of weight loss on KATHY were reviewed. MiName Other 08-16-2022 Hospital Discharge instructions Patient Education 12/11/2021 23:34:30 Bleeding Varicose Veins Bleeding Varicose Veins Varicose veins are veins that have become enlarged and twisted due to damaged valves in the veins. Varicose veins may cause complications such as painful ulcers, blood clots, and bleeding under the skin or on the surface of the skin. Valves in the veins help return blood from the vein to the heart. If these valves are damaged, blood flows backward and backs up into the veins. This causes increased pressure within the veins, whichcauses the veins to become larger. Varicose veins are normally found in the legs. What are the causes? This condition may be caused by: Thinning and stretching of the skin that covers the varicose veins (hypoplasia). Weak, thinning vein goodrich. High blood pressure in the veins, due to the backup of blood that normally flows back to the heart. A growth in the pelvis (pelvic mass) that affects the veins in the legs. Taking medicines that thin the blood. These medicines may include aspirin, anti- inflammatory medicine, and other blood thinners. and childbirth. Blood clots, especially in deep veins (thrombophlebitis). What increases the risk? You are more likely to develop this condition if you: Have a family history of varicose veins. Are on your feet a lot. Are or have had a previous . Are overweight. Use control pills (oral contraceptives). Have an inactive (sedentary) lifestyle. Have a history of deep vein thrombosis (DVT). What are the signs or symptoms? Symptoms of this condition include: Bleeding on the outside surface of the skin near the veins. Bleeding under the skin. This looks like blue or purple discoloration in the skin that spreads beyond the veins. Burning pain. Itchy and aching legs. Heaviness, fatigue, and cramps in the legs, especially after long periods of standing, wearing tight clothing, or being in a hot climate. Severe skin dryness (varicose eczema). How is this diagnosed? This condition may be diagnosed based on: A physical exam that involves inspecting and feeling your enlarged veins and legs. Your medical history and overall health, including whether you have recently injured the area near the varicose veins. Your symptoms, including when you first noticed any bleeding or pain. A test that uses sound waves to produce images and measure blood flow through the veins (duplex ultrasound). How is this treated? Treatment may include: Raising (elevating) your leg above the level of your heart for 30 minutes a few times a day. Stopping bleeding and swelling by applying pressure (compression) to the area. This may be done by wearing an elastic bandage or compression stockings. Applying an antibiotic cream to any open sores. Exercising regularly and losing weight, if necessary. Having a procedure to close off or remove bleeding varicose veins using one of the following methods: ?Injecting a solution into veins that causes blood to clot and eventually causes the veins to fade (sclerotherapy). ?Using a laser to apply heat to the vein and close it off (laser treatment). ?Using an electrical current produced by radio waves to close off the vein (radiofrequency vein ablation). ?Removing the vein through small incisions made over the vein (phlebectomy). ?Tying the vein and removing it through incisions made over the vein (vein ligation and stripping). ?Piercing the veins using minimally invasive surgery (subfascial endoscopic ignition specialist vein surgery). This method may be used in advanced cases. Follow these instructions at home: Medicines Take and use ssox-yye-nabgyne and prescription medicines and creams only as told by your health care provider. If you were prescribed an antibiotic cream, use it as told by your health care provider. Do not stop using the antibiotic even if your condition improves. Lifestyle Do not use any products that contain nicotine or tobacco, such as cigarettes, e- cigarettes, and chewing tobacco. If you need help quitting, ask your health care provider. Exercise regularly and do exercises as told by your health care provider. If directed, work with your health care provider to lose weight. General instructions Wear compression stockings, elastic bandages, or any wraps as told by your health care provider. These help to prevent blood clots and reduce swelling in your legs. Try to avoid sitting or standing for long periods of time. If you need to sit or stand for a long time, move around often to maintain blood flow (circulation). Elevate your legs above the level of your heart for 30 minutes, 4 times a day, or as often as directed. To do this, lie down with your leg propped up on a pillow or cushion so that your foot is aboveheart level. Doing this regularly can help prevent more bleeding from developing. Check your skin every day for new sores and signs of bleeding. Avoid wearing high-heeled shoes and tight clothing, especially around your limbs and waist. Be careful in situations where you could cut your legs, such as when shaving or gardening. This canhelp prevent bleeding. Contact a health care provider if: Your veins bleed above or under your skin. Bleeding under the skin looks like purple or blue discoloration. You develop new sores or a rash near your varicose veins. You have a sore that does not heal, gets infected, or gets bigger. You have pain that gets worse. The area around a varicose vein becomes warm, red, or tender to the touch. You have bad-smelling, yellowish fluid coming from a spot where there was bleeding. You have a fever. Get help right away if: You have chest pain. You have trouble breathing. You have severe leg pain. Your legs and feet are turning blue or black. Your legs swell and harden. Summary Varicose veins are veins that have become enlarged and twisted due to damaged valves in the veins. They may bleed under the skin or on the surface of the skin. Treatment may include lifestyle changes, elevating your legs, wearing compression stockings, and having certain procedures. You should exercise regularly, maintain a healthy weight, and avoid smoking. Check your skin every day for new sores, signs of bleeding, or other problems. This information is not intended to replace advice given to you by your health care provider. Make sure you discuss any questions you have with your health care provider. Document Released: 09/01/2009 Document Revised: 10/27/2018 Document Reviewed: 10/27/2018 [employer] Patient Education 2020 [employer]. Follow Up Care 12/11/2021 22:19:17 With:Milla Montoya Address: [address] [place] [phone] Business (1) When:12/14/2021 Comments:Call this vascular surgeon to discuss potential therapies for her varicose veins should they continue to become symptomatic. With:Rinku Encinas Address: [address] [place] [address] Business (1) When:12/14/2021 Comments:Call the office of your primary care doctor to arrange for follow-up within the above-stated timeframe. Follow-up with your primary care doctor about this ED visit. You should review your labs, imaging, and diagnoses from this ED visit with your primary care physician. If you were prescribed medications you should discuss possible side-effects and drug interactions with your pharmacist. Call 911 or go to the nearest Emergency Department if you develop any new or worsening symptoms.Keep dressingon for 24 hours. Rest, keep the leg elevated. Keep wound clean and dry. Avoid agitation or injury to the area. Return with further bleeding. [facility]01-[facility] History general Narrative - Reported* Type Description Date Medical History Hypertension Medical History BPH Medical History severe KATHY Medical History CAD, one stent Medical History prostate cancer 2011 Surgical History Cardiac Stent Placement 04/2011 Surgical History Seed Implant 06/2011 Surgical History Sebaceous Cyst Excised 2008 Hospitalization History see surgical hx MiName Other Evaluation + Plan note Future Appointments Appointment Date:02/07/2022 08:30:00 AM Scheduled Provider:Todd BRAXTON MD Location:[facility] App[facility] Future Appointments Appointment Date:01/29/2022 09:15:00 AM Scheduled Provider:Milla Montoya MD [facility] Appointment Type:Vascular Follow Up (FT) Appointment Date:02/07/2022 08:30:00 AM Scheduled Provider:Todd BRAXTON MD Location:[facility] Appointment [facility]:URO [facility] Future Appointments Appointment Date:02/13/2023 08:30:00 AM Scheduled Provider:Todd BRAXTON MD [facility] Future Appointments Appointment Date:02/13/2023 08:30:00 AM Scheduled Provider:Todd BRAXTON MD [place] [place] [facility] [place] Appointment Type:URO Office Visit Future Scheduled Tests Radiology* CT Abdomen/Pelvis w/o Contrast 10/03/22 [facility] evaluation + Plan note Future Appointments Appointment Date:02/13/2023 08:30:00 AM Scheduled Provider:Todd BRAXTON MD Location:[facility] Appointment Type:URO Office Visit Diagnostic Tests Pending * Urine Culture 10/03/22 Future Scheduled Tests Radiology* CT Abdomen/Pelvis w/o Contrast [facility]03[facility] App[facility]ments Appointment Date:10/16/2022 08:30:00 AM Scheduled Provider: Location:[facility] Appointment Type:Urology FT Appointment Date:02/13/2023 08:30:00 AM Scheduled Provider:Todd BRAXTON MD Location:[facility] Appointment Type:URO [facility] Future Appointments Appointment Date:02/13/2023 08:30:00 AM Scheduled Provider:Todd BRAXTON MD Location:[facility] [place] Appointment Type:URO Office Visit Appointment Date:02/19/2023 03:00:00 PM Scheduled Provider:Zina Ugalde MD Location:[facility] Appointment Type:[facility] New Patient [facility] Evaluation + Plan note Future Appointments Appointment Date:02/13/2023 08:30:00 AM Scheduled Provider:Todd BRAXTON MD Location:[facility] Appointment Type:URO Office Visit Appointment Date:02/19/2023 03:00:00 PM Scheduled Provider:Zina Ugalde MD [place] App[facility]ment Type:[facility] New Patient Diagnostic Tests Pending * [facility] Fish and Urine Cyto ([facility]) 02/06/23 [facility] Future App[facility]ments Appointment Date:03/06/2023 03:00:00 PM Scheduled Provider:ANJELICA CASTRO PA-C Location:[facility] Appointment Type:URO Office Visit Appointment Date:03/18/2023 10:15:00 AM Scheduled Provider:Zina Ugalde MD [place] [place] Type[facility] Future Appointments Appointment Date:03/18/2023 10:15:00 AM Scheduled Provider:Zina Ugalde MD [place] [place] App[place]ment Type:[facility] New Patient Appointment Date:03/12/2024 08:30:00 AM Scheduled Provider:ANJELICA CASTRO PA-C Location:[facility] Appointment Type:URO Office Visit Future Scheduled Tests Laboratory* PSA Total 03/06/24 [facility] Evaluation + Plan note Future Appointments Appointment Date:05/09/2023 10:00:00 AM Scheduled Provider: Location:[facility] Services Appointment Type:Surgery FT Appointment Date:03/12/2024 08:30:00 AM Scheduled Provider:ANJELICA CASTRO PA-C Location:[facility] Appointment Type:URO Office Visit Future Scheduled Tests Laboratory* PSA Total 03/06/24 * CBC w/ Auto Diff 03/18/23 * Comprehensive Metabolic Panel 03/18/23 [facility] Evaluation noteNo assessment information available [facility] Work Phone: Evaluation noteNo InformationNort [employer] Other Hospital course Narrative No data available for this section [facility] No data available for this section [facility] No data available for this section [facility] Chief Complaint * ESTRADA PFEIFFER is being seen for a 6 month follow-up of. * Patient is in the office for follow-up for the problems noted below. Since his last visit he has not had any angina. His pressures under control he is due for lipid profile which is ordered. His weight is unchanged from previously and remains significantly obese. Education in that regard provided again. Apart from that his physical examination was normal * ASSESSMENT AND PLAN: * 1. Single-vessel angioplasty with bare-metal stent to the marginal in 2011. His risk factor under control. Will continue present medical therapy without changes. * 2. Hypertension, presently under control. * 3. Hyperlipidemia, presently under control, on statin therapy. Under control. Lipid profile is ordered * 4. Obesity. Encouraged more weight control with exercise and diet. * 5. Previous history of left lower extremity deep vein thrombosis following knee surgery with no recurrences. No need for long-term anticoagulation * Summer Deshpande MD, FACC * ESTRADA PFEIFFER is being seen for a 6 month follow-up of. * Patient is in the office for follow-up for coronary heart disease and other problems noted below. Since he was last seen in the office 6 months ago he has had no cardiac events but had bilateral kneereplacement surgery this past June. This was not complicated. He has sleep apnea on CPAP machine and has been compliant. His weight has remained significantly above target and he knows about it. He seems to have some addiction to ice cream and he admits it. Apart from his obesity physical examination was normal. His most recent lab data from June 2021 were reviewed that did not include lipid profile which now is needed. * ASSESSMENT AND PLAN: * 1. Single-vessel angioplasty with bare-metal stent to the marginal in 2011. His risk factor under control. Will continue present medical therapy without changes. * 2. Hypertension, presently under control. * 3. Hyperlipidemia, on statin therapy, lipid profile is ordered * 4. Obesity. Encouraged more weight control with exercise and diet. * 5. Previous history of left lower extremity deep vein thrombosis following knee surgery with no recurrences. No need for long-term anticoagulation * 6. Sleep apnea on CPAP machine with compliance. * Summer Deshpande MD, FACC * ESTRADA PFEIFFER is being seen for a 6 month follow-up of. * Patient is in the office for follow-up for the problems noted below. Since I saw last time he lost his brother Efraín 2 weeks ago and he is still grieving his loss. He has had no cardiac events whatsoever. He had venous stripping in his legs several months ago by vascular surgery at [facility]. Lipid profile from recent testing was reviewed with him and his numbers are on target. His weight remains above target. He does use CPAP machine at night and has been compliant with that. His examination is only abnormal for obesity. * ASSESSMENT AND PLAN: * 1. Single-vessel angioplasty with bare-metal stent to the marginal in 2011. His risk factor under control. Will continue present medical therapy without changes. * 2. Hypertension, presently under control. * 3. Hyperlipidemia, on statin therapy, lipid profile is on target from recent testing * 4. Obesity. Encouraged more weight control with exercise and diet. * 5. Previous history of left lower extremity deep vein thrombosis following knee surgery with no recurrences. No need for long-term anticoagulation, he had venous stripping last year at [facility] * 6. Sleep apnea on CPAP machine with compliance. * Summer Deshpande MD, FACC * ESTRADA PFEIFFER is being seen for a 6 month follow-up of. * Patient is in the office for follow-up for the problems noted below. He has had no events since he was last seen in the office back in May 2022. He denies any angina orthopnea PND or palpitations. He uses compression stockings since he had vein stripping surgery and previous DVT. His last blood work from May 2022. His examination apart from the weight issue with class I obesity was essentially unremarkable. His weight is 4 pounds below his last visits reading. * ASSESSMENT AND PLAN: * 1. Single-vessel angioplasty with bare-metal stent to the marginal in 2011. His risk factor under control. Will continue present medical therapy without changes. * 2. Hypertension, presently under control. * 3. Hyperlipidemia, on statin therapy, lipid profile is on target from recent testing * 4. Class I obesity. Encouraged more weight control with exercise and diet. * 5. Previous history of left lower extremity deep vein thrombosis following knee surgery with no recurrences. No need for long-term anticoagulation, he had venous stripping last year at [facility] * 6. Sleep apnea on CPAP machine with compliance. * Summer Deshpande MD, FACC Chief Complaint and Reason for Visit Chief Complaint retitration/possible CSA Chief Complaint Sleep apnea 31-90 da y follow up Advance Directives No Advanced Directives Records Found Advance Directive Response Recorded Date/ Time Advance Directives No October 09 6:06pm Summary Purpose Family History Unknown Family Member Name Dates Details Stroke syndrome: Mother Status:Active Family history of myocardial infarction: Brother(V17.3, Z82.49) Status:Active No Family History Records Found Additional Source Comments Care Teams (unrecognized sec tion and content) Team Status: Inactive Member Role Status Dates Rinku Encinas III , DO Primary Care Provider Active Tulio Hinojosa MD Attending Provider Active Team Status: Active Member Role Status Dates Rinku Encinas III , DO Primary Care Provider Active Team Status: Inactive Member Role Status Dates Rinku Encinas III , DO Primary Care Provider Active Priscila Mccormack NP Attending Provider Active Goals (unrecognized section and content) Goals may be documented in a n alternate section No data available for this section No data available for this section No data available for this sectionGoals may be documented in an alternate sectionNo Information No data available for this section No data available for this section No data available for this section No data available for this sectionNo Information No data available for this section No data available for this section No data available for this section No data available for this section No data available for this section No data available for this section No data available for this section No data available for this section No data available for this section REASON FOR VISIT (unrecogniz ed section and content) FOLLOW UPNo Information (unrecognized sect ion and content) No Status Records FoundNo Status Records FoundNo Status Records FoundNo Status Records FoundNo Status Records Found INFORMATION SOURCE (unrecogn ized section and content) DATE CREATED AUTHOR 02/07/2022 [facility] DATE CREATED AUTHOR AUTHOR'S ORGANIZ ATION 12/18/2022 [facility] DATE CREATED AUTHOR AUTHOR'S ORGANIZ ATION 12/18/2022 [employer] DATE CREATED AUTHOR AUTHOR'S ORGANIZ ATION 03/19/2023 [facility] DATE CREATED AUTHOR AUTHOR'S ORGANIZ ATION 03/26/2023 [facility] FOR RECORDS PERTAINING TO PATIENTS WHO ARE OR HAVE BEEN ENROLLED IN A CHEMICAL DEPENDENCY/SUBSTANCEABUSE PROGRAM, SOME INFORMATION MAY BE OMITTED. This clinical summary was aggregated from multiple sources. Caution should be exercised in using it in the provision of clinical care. This summary normalizes information from multiple sources, and as a consequence, information in this document may materially change the coding, format and clinical context of patient data. In addition, data may be omitted in some cases. CLINICAL DECISIONS SHOULD BE BASED ON THE PRIMARY CLINICAL RECORDS. [employer] provides no warranty or guarantee of the accuracy or completeness of information in this document.
== END 2023-05-03 11:03 | disposition home or self-care (01) ==
LOC: VC 11:03
PROVIDERS: Family Provider Family Medicine; PCP Radiology Diagnostic Radiology; Visit Provider Radiology Diagnostic Radiology
DX: I83.813 Varicose veins of bilateral lower extremities with pain (principal)
CPT/HCPCS: 36466

== ENCOUNTER 2023-05-08 09:32 | Outpatient (OUT) | payer MEDICARE, SELFPAY ==
--- NOTE | 2023-05-08 09:35 | VEIN_ITS ---
Patient Name: ESTRADA PFEIFFER MR#: [id number] : 1945 Exam Date: 05/08/2023 Ordering Doctor: DR KEVIN SON M.D. RADIOLOGY REPORT PROCEDURE: VC EXT VENOUS LT LIMITED COMPARISON: VC EXT VENOUS LT LIMITED, 04/03/2023. INDICATIONS: I80.02 Phlebitis of superficial veins of lt lower extremity TECHNIQUE: Lower extremity garrido scale and Duplex Doppler evaluation of the deep venous system from the inguinal ligament through the calf veins. FINDINGS: REGION: Left lower extremity. THROMBI: Negative for DVT. Varithena induced thrombus visualized at dist/med calf and dist/lat calf. COMPRESSIBILITY: Non-compressible segments corresponding to thrombus FLOW: Areas of no flow corresponding to thrombus OTHER: A cluster of varicose veins remains at dist/med calf and measures 5.1mm with 0.7s reflux. CONCLUSION: 1. Successful post ablation occlusion of left leg treated branch saphenous varicosities. 2. Dictated by: Solis Puga M.D. on 05/08/2023 at 10:52 Approved by: Solis Puga M.D. on 05/08/2023 at 11:22
--- NOTE | 2023-05-08 09:35 | VEIN_ITS ---
Patient Name: ESTRADA PFEIFFER MR#: [id number] : 1945 Exam Date: 05/08/2023 Ordering Doctor: DR KEVIN SON M.D. RADIOLOGY REPORT PROCEDURE: [facility] - OFFICE VISIT FOLLOW UP COMPARISON: [facility], 04/16/2023. PROGRESS NOTES: The patient reports improvement in leg symptoms. There has been interval reduction in varicosities. The patient has followed our recommendations to walk 20-30 minutes once or twice per day since the procedure. Physical exam demonstrates decrease in varicosities of the leg. Persistent varicosities are identified along the distal lower left leg. Review of the ultrasound performed the same day demonstrates occlusive thrombus extending throughout the treated vein(s), see separate report, consistent with a successful ablation. No thrombus extending into or beyond the saphenofemoral junction. The patient expressed a desire to proceed with treatment of remaining left leg incompetent branch saphenous varicosities and bilateral prominent spider veins. The patient was informed that treatment was a process and would require 3-4 procedures/sessions. [facility]: 1. Successful ablation of the left leg treated branch saphenous vein(s). 2. Persistent lower left leg varicose veins and lower extremity symptoms. PLAN: 1. Microfoam chemical ablation of left leg varicosities. 2. Bilateral lower extremity sclerotherapy. Nurse notes, history and physical were reviewed and confirmed, see attached forms. The nurse was present throughout the physical exam and consultation Dictated by: Solis Puga M.D. on 05/08/2023 at 11:22 Approved by: Solis Puga M.D. on 05/08/2023 at 11:23
--- OUTSIDE RECORDS SUMMARY | 2023-05-08 09:39 | XMS_ITS | CCD ---
Author Name Unknown Address [address] [place] [address] Organization [facility] Care Team Providers Care [employer] Advisor Name Role Phone Rinku Encinas Unavailable Unavailable Unavailable DO Rinku Encinas III Primary Care Provider MD Tulio Hinojosa Attending Provider Rinku Encinas III Primary Care Physician Asuncion Gonzales Unavailable Unavailable DO Rinku Encinas III Primary Care Provider RENEE Mccormack Priscila Attending Provider Mccormack, Priscila Unavailable Unavailable Unavailable Huang BUCHANAN, Dr. Rinku Callahan Primary Care Helena Deshpande, Dr. Summer Douglas Referring Linda vailable Jeramy, Dr. Summer Douglas Attending Linda lincoln Deshpande, Dr. Summer Douglas Attending Linda valincolnble Huang BUCHANAN, Dr. Rinku Callahan Primary Care Lindamathelma Deshpande, Dr. Summer Douglas Referring Linda vailable KAYLI PARSON Attending Unavailable Mccormack, Priscila Attending Unavailable Easton, Priscila Admitting Unavailable Rinku Encinas III Primary Care UnavailTulio Pemberton Referring Unavailable Tulio Vaughan Attending Unavailable Tulio Vaughan Admitting Unavailable ANJELICA CASTRO Attending Unavailable ANJELICA CASTRO Admitting Unavailable ANJELICA CASTRO Referring Unavailable Todd BRAXTON Attending Unavailable Zina Ugalde Attending Unavaila ble Rinku Encinas Referring Unavailable MATTHEW, ANJELICA Meza Attending Unavailable MATTHEW, ANJELICA Meza Attending Unavailable MATTHEW, ANJELICA Meza Attending Unavailable Deshpande, Summer Attending Unavailable Summer Deshpande Admitting Unavailable MATTHEW, ANJELICA E Attending Unavailable MATTHEW, ANJELICA E Admitting Unavailable MATTHEW, ANJELICA E Attending Unavailable MATTHEW, ANJELICA E Admitting Unavailable BRAXTON, Todd R Attending Unavailable BRAXTON, Todd R Admitting Unavailable Topher, Josh S. Attending Unavailable BRAXTON, Todd R Admitting Unavailable BRAXTON, Todd R Referring Unavailable BRAXTON, Todd R Attending Unavailable Allergies Allergy Classification Reported Allergen(s) Allergy Type Date of Onset Reaction(s) Facility (7 sources) Iodine; Translations: [Iodine SOLN] Drug Allergy Itching, Rash [place] [address] DO Work Phone: (20 sources) Penicillins; Translations: [Penicillins] Allergy to drug (finding) Unknown (qualifier value) [place] [address] DO Work Phone: (9 sources) shellfish, unspecified; Translations: [shellfish] Allergy to substance (finding) Shortness of breath, Other [facility] Repository (20 sources) Sulfonamides (Antibiotic); Translations: [Sulfa Drugs] Allergy to drug (finding) Discoloration of skin (finding) [place] [address] DO Work Phone: (16 sources) Calcium Carbonate; Translations: [calcium carbonate] Drug Allergy Swelling, Hives [facility] Comment on above: calcium sulfate (17 sources) Iodine; Translations: [iodine] Drug Allergy Hives, Swelling [facility] (16 sources) Shellfish; Translations: [shellfish] Drug allergy Difficulty breathing (finding) [facility] (16 sources) Fish 1 Propensity to adverse reactions to substance Difficulty breathing (finding) [facility] Comment on above: trout (4 sources) Penicillin Drug Allergy swelling [facility] [employer] Other (4 sources) Sulfonamides (Antibiotic) Propensity to adverse reactions rash [facility] [employer] Other (1 source) Calcium; Translations: [Calcium] Drug Allergy [facility] Repository (1 source) Fish - dietary; Translations: [Fish] Propensity to adverse reactions (disorder) [facility] Repository Medications Current Medications Medication Drug Class(es) [...] Start: 10-05-2020 take 2 tablets by mo [facility] once daily Aspirin Adult Low Strength 81 MG Oral Tablet Delayed Release take 2 tablets by mouth every day Quantity: 180 Refills: 3 Ordered: 17-Dec-2022 Summer Deshpande MD Start : 05-Oct-2020 Active fill if requested. take 1 tablet by dedrick once daily Baby Aspirin 81 MG 1 [...] constipation, # 40 cap(s), Refills(s) 0, Pharmacy: [facility], 180, cm, 06/06/21 15:55:00 EST, Height/Length Dosing, 113.6, kg, 06/06/21 15:55:00 EST, Weight Dosing Start Date: 06/27/21 Status: Ordered finasteride 5 mg oral tablet (20 sources) 5-alpha Reductase Inhibitor Start: 05-18-2020 take 1 tablet by mouth once daily finasteride 5 mg Tab 5 mg = 1 tab(s), Oral, Daily, # 90 tab(s), Refills(s) 3, Pharmacy: [facility], 180, cm, 10/16/22 8:31:00 EDT, [...] Status: Ordered nitroglycerin 0.4 mg/actuat mucosal spray (15 sources) Nitrate Vasodilator Start: 11-07-2017 Nitro 0.4 [...] 7days, # 40 tab(s), Refills(s) 0, Pharmacy: [facility], 180, cm, 06/06/21 15:55:00 EST, Height/Length [...] : 30-Mar-2021 Complete Chondroitin Sulfate 150 MG (4 sources) Chondroitin Sulfate 150 MG as directed Orally Not-Taking/PRN Chondroitin Sulf ate 150 MG as directed Orally Not-Taking ciprofloxacin 500 mg oral tablet (11 sources) Quinolone Antimicrobial Start: 10-03-2022 Cipro 500 mg Tab 500 mg = 1 tab(s), Oral, As Directed, Patient to take 1 tab the day before procedure and the 2nd tab the day of procedure once completed, # 2 tab(s), Refills(s) 0, Pharmacy: [facility] [address], 180, cm, 10/03/22 13:53:00 EDT, Height/Length [...] Complete pravastatin sodium 10 mg oral tablet (4 sources) HMG-CoA Reductase Inhibitor take 2 tablets by mouth once daily as needed Pravachol 10 MG 2 tablets Orally Once a day for 30 day(s) Not-Taking/PRN tamsulosin hydrochloride 0.4 mg oral capsule (4 sources) alpha-Adrenergic Nyla take 1 capsule by mouth every twenty-four hours Flomax 0.4 MG 1 capsule 30 minutes after the same meal each day Orally Once a day for 30 day(s) Not-Taking/PRN Problems Active Problems Problem Classification Problem Date [...] atherosclerosis of unspecified type of vessel, pilot station or graft] 06-27-2021 Chronic Coronary atherosclerosis and [...] 02-18-2023 02-18-2023 Episodic Other connective tissue disease (4 sources) Olecranon bursitis; Translations: [Olecranon bursitis of [...] Chronic Other nutritional; endocrine; and metabolic disorders (5 sources) Obese class I; Translations: [Body mass index (BMI) 33.0-33.9, adult] Onset: 03-18-2023 Chronic Other nutritional; endocrine; and metabolic disorders (2 sources) Body mass index (BMI) 35.0-35.9, adult Chronic [...] on above: uses CPAP Residual codes; unclassified (2 sources) Obstructive sleep apnea (adult) (pediatric) Chronic Residual codes; unclassified (16 sources) H/O: anticoagulant therapy 01-21-2019 Episodic Varicose veins of lower extremity (2 sources) Varicose veins of lower extremity; Translations: [Varicose veins of unspecified lower extremity with other complications] Onset: 12-11-2021 Episodic Past or Other Problems Problem Classification Problem Date Documented Da te Episodic/Chronic Unclassified (7 sources) Never smoked tobacco; Translations: [Never a smoker] Results Test Name Value Interpretation Reference Range Facility Insurance Correspondenceon 0 05-06-2023 Insurance Correspondence [id number]# 1.00TIFF Normal [facility] Ambulatory Visit Summaryon 1 05-18-2022 Ambulatory Visit Summary ESTRADA PFEIFFER :1945 Visit Date:03/18/2023 Ambulatory Visit Instructions Your [...] Follow-Up Appointments 2023 8:30 AM EST With: ANJELICA CASTRO PA-C Where: [facility] Consent for Procedure/Surger yon 03-18-2023 Consent for Procedure/Surgery [id number]# 1.00TIFF [facility] Gastroenterology Office/Clin ic Noteon 03-18-2023 Gastroenterology Office/Clinic [...] hematuria History of colon polyps Hx of general matcher use of blood thinners Nocturia Obesity 29-OCT-2013 [...] virus vaccine, inactivated 02/05/2022 Recorded SARS-CoV-2 (COVID-19) [id number] 01/16/2022 Recorded SARS-CoV-2 (COVID-19) mRNA-1273 vaccine 03/01/2021 [...] inactivated 02/16/2017 Re (more content not included)... [facility] Comment on above: Result Comment: Elec tronically Signed By: Tram DOUGLASS, Zina Gallardo\.br\Date and Time Signed: 03/18/23 11:03 EST [place] 03-07-2023 Screens [id number] #1.00TIFF [facility] Patient Educationon 03-06-20 23 Patient Education Oncology Prostate Cancer Screening Prostate [...] Where to find more information ? The [place] [employer]: www.cancer.org ? [place] [employer]: www.auanet.org Contact a health care [...] flu (more content not included)... Normal [facility] Urology Office/Clinic Noteon 03-06-2023 Urology [...] on cytol. CT AP wo con 10/11/22 [facility] - no renal or ureteral stones, no [...] with plan. Follow-up With When Contact Information MATTHEW CASTRO, ANJELICA Meza, URL [address] [place] [address] [phone] Additional Instructions: 1 yr w/ PSA Patient Education Prostate Cancer Screening Documentation recorded by the chris Patricio accurately reflects the services(s) I performed and decisions made by me. Authenticated by Anjelica Castro PA-C on 03/06/2023 15:45:47. I, Abigail Patricio, personally scribed for Anjelica Castro PA-C on 03/06/2023 15:42:47. . Problem List/Past Medical History Ongoing Bloody stools BMI 34.0-34.9,adult BPH with urinary obstruction CAD (coronary artery disease) Frequent urination Gross hematuria History of colon polyps Hx of general matcher use of blood thinners Nocturia Obesity 29-OCT-2013 [...] mg= 1 (more content not included)... Normal [facility] Comment on above: Result Comment: Elec tronically Signed By: ANJELICA CASTRO PA-C\.br\Date and Time Signed: 03/06/23 15:46 EST\.br\Electronically Co-Signed By: Abigail Patricio\.br\Date and Time Co-Signed: 03/06/23 15:43 EST CHEMISTRYOrdered By: SYSTEM SYSTEM on 03-05-2023 Prostate specific Ag [Mass/Vol] ng/mL Normal 0.1 - 3.5 ng/mL [facility] Remisol Comment on above: Interpretive Data: T he concentration of PSA determined by different manufacturers can vary due to differences in assay methods and reagent specificity. Values obtained from different assay methods cannot be used interchangeably. The methodology used for this result was chemiluminescence using [employer]'s Access Hybritech PSA reagent. Consent for Treatmenton Consent for Treatment [id number]#1 .00TIFF Normal [facility] PSA Totalon 03-05-2023 Prostate specific Ag [Mass/Vol] ng/mL Normal 0.1-3.5 [facility] Comment on above: Result Comment: The concentration of PSA determined by different manufacturers can vary due to differences in assay methods and reagent specificity. Values obtained from different assay methods cannot be used interchangeably. The methodology used for this result was chemiluminescence using [employer]'s Access Hybritech PSA reagent. Performed By: #### 1 [id number] #### [facility] Laboratory [address] [place] [address] UroVysion Fish and Urine Cyt o ([facility])on 02-12-2023 UVFISH & UC Diagnosis Info Invalid Interpretation Code [facility] Comment on above: Result Comment: A:Ur ine,Urine:Voided [...] correlated with cytology and cystoscopy results.* CPT 19522, 32782. Microscopic Notes - Microscopic Notes - Abnormal cells 9p21 deletions: Abnormal cells aneploid events: Total cells analyzed: Hematuria: Gross Description Site ID:A color Yellow fixative Alcohol Received 100 mls of clear yellow fluid with the patient's name and, Urine on the vial. Electronically signed by : on: 02/12/2023 11:43:23 Performed By: #### 1 [id number] #### [facility] [address] [place] [address] UroVysion Fish and Urine Cyt o ([facility])on 02-06-2023 [facility] Method of Extraction Voided Normal [facility] Comment on above: Performed By: #### 1 [id number] #### [facility] [address] [place] [address] [facility] Number of Jars 1 Invalid Interpretation Code [facility] Comment on above: Performed By: #### 1 [id number] #### [facility] [address] [place] [address] [facility] Specimen Urine Normal [facility] Comment on above: Performed By: #### 1 [id number] #### [facility] [address] [place] [address] [facility] Type of Service Technical Only Normal [facility] Comment on above: Performed By: #### 1 [id number] #### [facility] [address] [place] [address] Physician Orderon 01-30-2023 Physician Order [id number]#1 .00CD:127 Normal [facility] Office Visit (Cardiology)on 12-17-2022 Follow-up visit Diagnoses/Problems [...] Weight Tips; Status:Complete - Retrospective Authorization; Done: [id number] Some eating tips that can help you lose weight.; Status:Complete - Retrospective Authorization; Done: [id number] SocHx: Never a smoker Tobacco Use Screening; Status:Complete; Done: [id number] Patient Instructions Please bring all medicines, vitamins, [...] he had venous stripping last year at [employer] 6. Sleep apnea on CPAP machine with compliance. Summer Deshpande MD, [facility] Surgical History Problems History of Cardiac [...] 7:37:38 AM NonMedication Seafood Shortness of breath; [place]; Recorded By: Marissa Guevara; 12/17/2022 1:49:59 PM [...] Recorded: 17Dec2022 01:33PM Heart Rate54, R Radial Gjxjcuqo107, RUE, Sitting Dsekmmrtt01, RUE, Sitting Height5 ft 11 in Sfisok802 lb 12.8 oz BMI Ihtzfchegq60.84 kg/m2 BSA Calculated2.32 Tobacco Useb) No F (more content not included)... Normal [employer] Tobacco Screening.on 023 Fall risk assessment a) No falls within the last year [facility] [address] DO Work Phone: Tobacco use status [facility] b) No [facility] [address] DO Work Phone: Reminderson 11-26-2022 Reminders - From: Sonya Ricks To: [facility] - Reminders/Recalls; Sent: 11/19/2022 15:18:50 EDT Show up: 11/19/2022 15:19:00 EDT Subject: Ambulatory Reminder Reminder/Recall 5 year colon recall forrest veritowilliam 11/07 first recall letter Patient called. He is not credentialed with Dr. Ugalde's insurance and is requesting a call back around January. Reminder placed in system. Normal [facility] Patient Letter FTon 2022 Patient Letter [facility] November 21, 2022 ESTRADA PFEIFFER [address] [place] [address] : 1945 Dear Estrada, This is a reminder that you are due for an appointment with [facility]. Please contact our office at [phone] to schedule an appointment at your earliest convenience. Thank you, [facility] Normal [facility] UroVysion Fish and Urine Cyt o ([facility])on 10-19-2022 UVFISH & UC Diagnosis Info Invalid Interpretation Code [facility] Comment on above: Result Comment: A:Ur ine,Urine:Cystoscopy [...] correlated with cytology and cystoscopy results.* CPT 11726, 03309. Microscopic Notes - Microscopic Notes - Abnormal cells 9p21 deletions: Abnormal cells aneploid events: 16 Total cells analyzed: 157 Hematuria: Gross Description Site ID:A color Yellow fixative Alcohol Received 90 mls of clear yellow fluid with the patient's name and, Urine on the vial. Electronically signed by : on: 10/19/2022 11:11:56 Performed By: #### 1 [id number] #### [facility] Laboratory [address] [place] [address] Consent for Procedure/Surger yon 10-16-2022 Consent for Procedure/Surgery [id number]# 1.00CD:127 Normal [facility] Consent for Treatmenton 09-28 Consent for Treatment [id number]#1 .00CD:127 Normal [facility] IntraOperative Documentson 0 10-16-2022 IntraOperative Documents [id number]# 1.00CD:127 Normal [facility] Main OR Intraoperative Recor don 10-16-2022 Main OR Intraoperative Record IntraOp Document Type FTURO Summary Primary Physician: Todd BRAXTON MD Finalized Date/Time: 10/16/22 09:24:11 Pt. Name: ESTRADA PFEIFFER Rose Marie/Sex: 1945 Male Med Rec #: [id number] Physician: Todd BRAXTON MD Financial #: [id number] Pt. Type: O Room/Bed: / Admit/Disch: 10/16/22 08:36:10 - Institution: Case Times FTURO Entry 1 Patient Times In Room 10/16/22 09:11:00 Out Room 10/16/22 09:23:00 Procedure Times Start 10/16/22 09:14:00 Stop 10/16/22 09:20:00 Anesthesia Times Last Modified By: Georgia Almonte RN 10/16/22 09:23:53 Case Attendance FTURO Entry 1 Entry 2 Entry 3 Case Attendee Todd BRAXTON MD [employer], Georgia Bowles RN Role Performed Surgeon - Primary Scrub - Primary Hematology Oncology Consultant - Primary Time In 10/16/22 09:11:00 10/16/22 [...] Position Verified Availability Equipment, Medication Time Out ANTHONY DOUGLASS, Todd Callahan, Verified (If Participants Jenni Sanchez CST, Applicable) [...] By: Georgia Almonte RN 10/16/22 09:24 Normal [facility] Main OR Preoperative Recordo n 10-16-2022 Main OR Preoperative Record Holding Area Document Type FTURO Summary Primary Physician: Todd BRAXTON MD Finalized Date/Time: 10/16/22 09:17:01 Pt. Name: ESTRADA PFEIFFER Khang Trotter/Sex: 1945 Male Med Rec #: [id number] Physician: Todd BRAXTON MD Financial #: [id number] Pt. Type: O Room/Bed: / Admit/Disch: 10/16/22 [...] Comment: left hip area Skin Integrity Intact, Friona, Warm, & Dry Vitals - EU Blood Pressure 165/65 Pulse 63 bpm Respirations 20 br/min SPO2 97 % RN Reviewed Yes Last Modified By: Georgia Almonte RN 10/16/22 09:17:00 General Comments: Temp 36.8 Finalized By: Georgia Almonte RN Document Signatures Signed By: Paty Watkins LPN 10/16/22 08:49 Georgia Almonte RN 10/16/22 09:17 Normal [facility] Operative Reporton Operative Report Patient: ESTRADA PFEIFFER [...] to his allergy to IV contrast. Normal [facility] Comment on above: Result Comment: Elec tronically Signed By: Todd BRAXTON MD\.br\Date and Time Signed: 10/16/22 09:28 EDT Outpatient Surgery Discharge Instructionon 10-16-2022 Outpatient Surgery Discharge Instruction [id number]# 1.00CD:127 Normal [facility] UroVysion Fish and Urine Cyt o ([facility])on 10-16-2022 [facility] Method of Extraction Cystoscopy Normal [facility] Comment on above: Performed By: #### 1 [id number] #### [facility] [address] [place] [address] [facility] Number of Jars 1 Invalid Interpretation Code [facility] Comment on above: Performed By: #### 1 [id number] #### [facility] [address] [place] [address] [facility] Specimen Cystoscopy Normal [facility] Comment on above: Performed By: #### 1 [id number] #### [facility] [address] [place] [address] [facility] Type of Service Technical Only Normal [facility] Comment on above: Performed By: #### 1 [id number] #### [facility] [address] [place] [address] CT Abdomen/Pelvis w/o Contra ston 10-13-2022 CT [...] Signature): 10/13/2022 9:06 am Signed by: Rg Bocanegra MD Transcribed by: KALYANI Technologist: CAROLYNN Technical Comments Rectal Contrast Given? No Oral contrast amount in ml's: 0 [facility] Consent for Treatmenton 09-27 Consent for Treatment [id number] .00CD:127 [facility] Pre-Certification Formon Pre-Certification Form [id number]#1 .00CD:127 [facility] C Urineon 10-05-2022 Bacteria identified Cx Nom (U) Microbiology PROCEDURE: Urine Culture [R1] SOURCE: U Random BODY SITE: COLLECTED DATE/TIME: 10/03/2022 14:32 EDT RECEIVED DATE/TIME: 10/03/2022 18:11 EDT START DATE/TIME: 10/03/2022 18:11 EDT FREE TEXT SOURCE: ANJELICA CASTRO PA-C, PA-C, JENNIFER E FINAL REPORTS Final Report [] Verified Date/Time: 10/05/2022 11:31 EDT No growth at 2 days. Performing Locations R1: This test was performed at: [facility], [address] [place] [address], [address]- , [place], [facility] Comment on above: Performed By: #### 2 [id number] ####[facility] [address] [place] [address] Patient Educationon 10-04-19 Patient Education Urology Hematuria, Adult Hematuria is [...] these instructions at home: Medicines ? Take ymll-cxe-kafyjxb and prescription medicines only as told by [...] the blood stops without treatment. ? Take jxyn-avn-fbrtycy and prescription medicines only as told by your health care provider. ? Drink enough fluid to keep your urine pale yellow. This information is not intended to replace advice given to you by your health care provider. Make sure you discuss any questions you have with your health care provider. Document Revised: 12/14/2020 Document Reviewed: 12/14/2020 Anonymous You Patient Education ? 2022 Liquid. Normal [facility] Pre-Certification Formon Pre-Certification Form [id number]# 1.00CD:127 Normal [facility] Pre-Certification Form [id number]# 1.00CD:127 Normal [facility] Provider Letteron 10-03-2022 Provider Letter Rinku Encinas III [address] [place] [id number] Re: ESTRADA PFEIFFER Date of : [address] Huang BUCHANAN DO, Rinku PFEIFFERESTRADA was evaluated at [facility] 10/03/2022 As this patient has been stable [...] Thanks! Provider Signature: Anjelica Castro PA-C Physician Sample Case [facility] [address] [place] [address] Normal [facility] Comment on above: Other Comment: ENTER ED [...] neoplasm of prostate) PSA: 01/31/21 - 0.1 02/06/22 - 0.1 S/P Brachytherapy 06/2011. -Pt does have 1 yr PSA follow up scheduled w/[facility] 01/2023. 3. BPH with urinary obstruction (N40.1: Benign prostatic hyperplasia with lower urinary tract symptoms) Finasteride 5 mg QD. pt continues on this medication. aside from the bleeding he has no urinary complaints. Follow-up With When Contact Information MATTHEW CASTRO, ANJELICA Meza, URL [address] [place] [address] Additional Instructions: schedule cysto, CT scan Patient [...] disease) Frequent urination Gross hematuria Hx of general matcher use of blood thinners Nocturia Obesity 29-OCT-2013 12:37:00<$> Obstructive sleep apnea Osteoarthritis Personal history of prostate cancer Post-void dribbling Urge incontinence Historical Coronary artery disease HTN (hypertension) Prostate cancer Procedure/Surgical History Endovenous laser ablation of varicose vein (02/15/2022), Total knee replacement (06/27/2021), Cystoscopy (06/11/2017), left total knee arthroplasty (04/13/2016), left shoulder arthroscopy with extensive glenohumeral clive (more content not included)... Normal [facility] Comment on above: Result Comment: Elec tronically Signed By: ANJELICA CASTRO PA-C\.br\Date and Time Signed: 10/03/22 14:45 EDT\.br\Electronically Co-Signed By: Nilda Gallagher\.br\Date and Time Co-Signed: 10/03/22 14:28 EDT Coding Summary.on 08-31-2022 Coding Summary. CD:[id number] W w+PGhlYWQ+UX4PZILpD86 jfUKcvA4dI8EVGZzYVano DPGXHMrSUaQebkZuIW9bb XNjZXJu IC8+VV6sBYUkRrlfeUGmh 1Q7dKD5P04hlk1hRGmydT T7EOKhImPccxspr1njlNr 6IDcuNmluOyBt GQVamT75YHL5gJ61Cr66c XQcvMZyv6sheRt8XiXxRD WpXXZ5uJqdJVnit6BeYHG iB29ptOQbp3V7 OMWbdGyukJAuXeOmxHG9k F1oUOvfiooir1rtlcudPl a9zn81pXGtj9T5eHR4P9Z flpI5EJKiaKSr RiwvoKMQkC6tiymlp3sww hxvOrToQBOzAKp3XXd6MT NizCrcLjFxDG95SOU2VRA inhKkZ3PbJDVd lJriUnK9a6Q0Cz1QQ1YIR tyeE0FJGEMMAEewnUA+PC 21ic97E7WzBnkcYpl7SZG qCBT8bWT0uK6r XACrTOqah2F2vHH4G2Mnq vIqxu4gh9spASQjMEwwT2 9fpEPaf7F1LMTzuWB3XVQ ixQsgIyCdlX03 Oyc+VIMyaIidq5PwQcmub 8apa6quqFo8XiiiWTEdda ToyInnSZT0a1RaLv2wONE vgXI0hMZ1aQ5l LfCzDiX8DUyjW919BkYrs QLnXutaS27sX7EjfRP+PH VkNwn3QJGisPsbSI1vB9Y hZGRpbmctbGVm uVxcEZ3eVTUfcajxOJHqk Y8iMSIzX8y0TnPuIfM7VW juR1OtVDJmsalcVm17vA9 vNzVkYxO5DDbm S0UidyX7RTRlpJYvGWsoX XO5X78mq2N5WTMeLQAsQU U3oZL9gR7kjRfaxwizmWO mdDsgdmVydGlj URayPAozK807ZIGniAmyX kNvZGluZyBEYXRlOiAgMD UvMDUvMjAyMzwvdGQ+PHR fRXJ3hFbcVBGy fANkWSbyMm6xxShudCpoQ H9jVAHzmkvsWMXbsH2fKR FdyFSraWhcCQ0tLOOrdze zq713FtUkWYT8 XEFasJGsQ5IveB9mBlEvI YCoSNNgA7YtqALvFPvnR6 43BHcxAaZ1MJAzltPkU6W sLWFsaWduOiB0 u7C7Wq9Nm4IkumpuN8Fpu ZZjRgOxWgsjJTq3M0MfVq wvdHI+BA33HCEvSR60AZr 2AZW2yNayHZem YALeA0DcuI7sZbEvCAEeG GRkOyc+PHRhYmxlIHdpZH RoPScxMDAlJyBzdHlsZT0 qNz1dYDUnNWBp eNsutEOnJwYku4tfVEKtX OonYX8rgZpdK5JltSV9CJ Gqz1o2Un01K41pS9ZdoOR +UQIzeUE3bLL7 vP2sXqNxMeE0WKhqP456R vZsbLPjIrmck9ptr0fnwY x6ViU3YZThjaPjtBgzALH 0b1QkQk55W56n IHdpZHRoPSIxNSUiIHZhb Bujsn2alG4eFp3+PGNvbC E2nOP7hB7eFyJqYnO2WPb xA080MsVrfPIw Vpqlv8vki3wrjSf6SkWjU GYaalNgzWveJJA3t3ZpOy 75Q4VoiVhrj9GdErc2xz4 0uAEyc8N6cWK7 G4XaYMFeyvuthUAfuXxdV I0zEZYessjdICSbxC4jZG OlP3i5TbBsWmC6BDcjZ7K lebJ5AFRfzINs GGHioGYXdS9ojknbt7ley mvaOfZyNHJfXYr5FEo1VG IfjRvnEsWgGRI3NkX2FEY 9cSDeaU8jwNpr uqnesK9oUud+GUF2eOEmu PGERI0aNagttDE+PHRkIH P0yYreOLvpSVYgqB1xVMD jW5o5EmRgHeF9 IBnnP7NwufJ9JQHrkTCvX FWalDHIfJ5mknwot7chxs klZsCiWJMaBGe5RVw3AVW saWduOiBsZWZ0 LmV2USM0xRMxhA3zdMewg yygdV0uIec+QmlydGggRG S9KJn0W2OuVvj3JINwlUg jLX4wvZLyUHwr Fs1rjErgyPbmRC4aDIZvb ehoe304WgVxj2iwBHZqtX KnIBagNQK5Q08px8P8TQY xIGKmUDN8hBV3 bD5pbVfmfwwmqIDcmSekz fRgvXkeCHlzNVbeR322TC AvvNzgChGaPTk9M8XpUiy 9ZEXcvVgiNV1u lZYsUEgsEp5gtMifjUhnC R9jLORtefbsu736AtCay7 rgRROstJEvCGxvOWI8G91 ou3N1ZXLxULVj NGA5sPT9hM8lrHjkmdcmq GVmdDsgdmVydGljYWwtYW weR799AAAtcBwiDnJevDk 7B9LtYhi9MNAo aDqfSE1wtFOrZCnvSd9od MukjRccHZ0lSFEejkqdb5 22LrWje6piCNBcqJXgTHh bHRY8G85pl2M3 XQFfWSVkVIJ7pQW4iX3bx GlnbjogbGVmdDsgdmVydG paYAkkIYrxW079NNSaiTk nPlBhdGllbnQg MCheWGx4J1XnGjrjqFS+P A40GWXdUK41tDYmiPNro2 lfsBl4GnNmGPPhDQT7yXg mLOshk7HwFGXc P79ggQJme6I6JQXpwVwjt VIpPkOnhJE3nA5lVSjgwd tdq1psspmzKyugl4lxiq8 8eQ01Z75mQYjn ZHRoPSIzMCUiIHZhbGlnb u0kyO3oNe9+JANhoUZ4zV J4mB3fOAGzEtO0XExhG37 9InRvcCIvPjxj h7hge5ocpLk5YnF5TYWwy zCswQnuWGR8a6GmYw05G2 9sIHdpZHRoPSIyMCUiIHZ leXylql0auS7x Ii8+GFPtrJZ9tSQ5wE3gI uDyIwF2GNgjM139FkFgdY JlAfzrI21xP5TfxRJ+PHR yHam8YOFavDuu LU3yvGBwTNsnDl3uQOG2B xUkKgIlXTkdN2NfRNJgsi ugejwqtHD6WRFjSVEovK9 0Vc3xvPyhNFXv bHEGlV9faxzeq1pxkvzxD yWnQJOeQSj5SZq6WAJgnP thTbSoUFA2UyO6ODE1qVY naG3vtYmpnhnx cF5gU9JpLWWcapldCl28p T9gYjLnMsI5CZirCpp+R0 JVZEmwLWMAB45SRxJTBB3 2XR33kLEwa7G5 aRL9C0QzLPZrswycvuisy BL1IQFjWYFdiE37oVOqPL vxGl0xy9R3f864BXYfMHV inM02Oo0grInf RGExvQECnM1kodllh9zlh qlqFkNlCUCkQLm8KLv0YD NftAecPgRcQEQ9AtX8HAU 7iCKokJ1veKcx lmbneP6sKyb+MDEvMTIvM Cm0KunblBR+ATGcPIH6pW qcLSafIUEnkP3yKCYlS7n 5EwNiJhN7PYyx J4WuZBZfikffKk54sK9nE wIqClA3XSwfV3GxfrB2IK BpqDHcAAxgKCF4L63sw7E 1BUIlIUQwNUD1 rGI7hP2oeNvietxvyBIaj DsgdmVydGljYWwtYWxpZ2 26CKNrbCvoOps2BLsgKVQ eYZ89UE94bKAo m8B0sWA1B5WsSQMknbrjm ddhxMC0HWYyDOPxlG50lW LtPFmqYg1de4W4z411OAG pEGYniR56Si1c tUzkSQUnnDMCrN6ruonid 7ifoixqUuHzCBYgABo7LN a0UJNvvGhdWwHiAFP4EhK 6LKD1pLNrgJ1q bYxxsstxfZ3gXtv+TWFsZ TwvdGQ+LIYmRAV1qDreKM ocZEXogB4zFDDfW8w9RgN aUbA6FOxhV2Pv SOVqolduBn80bY9gFuZyH eH9EAblN0HgkiS0WWVkpC JeXExcAWQ8A44to1P3QVS xBQKmLJF5pXL8 nA3bbQeqfcluvPAshRxxa qOumSswVPebWNxwA686IR JrgRdjSsAfBGNpHD1lqQd vdGQ+ON46hu74 Y4YuSqexZqx6EINxSKP4v XY9jF5sWFQdULtwz1V1cN T1D4ZqbcWvuz7sc1fpYPU kEBfjA18myZQa v0K3UZTebAW3UFDfsKsnM pXrjM19Rkw+PGNvbGdyb3 LlZlszw6xqo9uvoRy3GiM wJSIgdmFsaWdu AHW7l3KoPi79Q66vTBxtY HRoPSIzMCUiIHZhbGlnbj 9zjW0fXf2+BIIjwLO4hGF 1lW0sDnKiYwH3 ABcoY042VqJoyXEkEtqjj 5kdp6srxOi0ZvLnIROjcj FwhHkwNQQ9d8SqVs32B1H yzWgqc2ReGti9 dv72nQRtt5O5aDF4I8BjQ ZNknpemmYDdoKntMG5zIR NkpurhMWDonP8cWZRlV9g 4YtJxLyB6PCbn I3YqzeM7IKVewJJfTAQfy DOVtW0jaevqt1jmsrkdWt ChNDUhLKv5MGu2WYUsxXv lCqNkZCS5RnO8 KFZ9qLLxhS5jzGzzafrbw G9wOyc+EPo7b4yumUHyHL 9uxWP6EO98VL66wEXex2R 1kMK2M5TnVYFh eublzmmlaEZ5SSFmUQQza M86Zl2zrZarZp1lLPRvOW H0RVEguGAhV2TaaE7pSrF dVOGpENJvB5Jm mCAmJQljQ360ZFfdFlP0J GDvzvNrF9XgMQDioMgyDi S8e0F8Kf4DPL60TA85IN7 8uUEhk7F1iRT7 X2XlCMLmyuowfsqiiME2J CGsQNRqmY12Sj8qnIasBu 7yWXMnNRO6RAUdsWCqD7S etG1wQqQrAUHl XRQfB9SruRVtCEkxC984V EfsBnT2BBVtbnLfL3QeDF LycPvkRmX9m4F4Cs7SVv9 6CB44WO96oSQt u0K0fYU1P4AbBPEyuqanf nrhqME4OZDuXAExlQ11Tx 4zsYtcZm3zBOAfAMT8VLW igLEgJ3IluP7m OqMwRCAzREVlL2PkjUCfI FzbD702EEydAaI9PYGzls MxX2RgTXUnfBwmGbA9g4E 9Sr1JGCvumia2 K9IfQkqusYY+PI81DJDaN T45rNDsmCAda2fhfJl5Ft KcMQCbCIO3xMcsLGswj8Q eJSLhX18suVGr p2C7ZYAf (more content not included)... Normal [facility] Coding Summary. CD:[id number] W w+PGhlYWQ+ZX5UPJCvW20 vuWCveR2TB6qZGC8QQJGQ YNEORD0DCP9pvKP9UTheE 2VybiAv MmuaoFFdZI06PLl6EHR1o IhoVHyfnJ8aaXVsH4f3Lt KnRO76rD77ZHjlKLEkXsU 3LjZpbjsgbWFy C2qgQcEpjZIbCap+PHRhY mxlIHdpZHRoPScxMDAlJy XrbLiiGV5dFk1jXUFqDXI vbGxhcHNlOiBj h7umANSyWFksXO0pdZewW 9JloLW4FHFmv1r2Pf83lQ I+XDNyLAL8tAmqBXocl41 3OqHfw5svUTA4 tJRsLHilQVM5U33yx9X8G UWoALPrCRF5xXF9bW6mrZ ttsfclV6ReaOPeZaX8EMK 8vFQzdK0smBku tkzecQ2gZfl+K28PBS0RI LFLET7UWji9A0TtUdsfiI I+MI15ZLOiSK31pVApgJH pj2bdePf3JiQm LMQmVAP0tWhlLFptd5LaX FCyW16heSXyo6V4RTUkiP phdCPhFqPcsHV7hF5sTIa eyrjmx0ywhvns Hkydc9gebq63iG98E45iT FyjMQLeKGW1QCUvCIYayI zrts7xiQ9cBh3+ZXelk6c dz0wizTq4IjWo CBIssiBroWtsQZA0t9FbW j58D2MmzFdkd3OmCic1su 96rNBxg5T7dHS6RWrsQWK vbQ1iQIwrFgR9 ZJCkPzJpkM75aXYdRSbcA k6soTzloGfpJG4uDTMcgc qqIOFuxZ6tBRQueCRzpYs dJF5wCUQgfbjj g333JhZjVKH8JWKecBQdN 5JwhP7vAvAlESErFBFqO4 ApwLEvFDqqE575RNvrFfM 9SDCtzpRqD3Jz ZWDkeIqbVrT8f1C7Ai1Ld 7BybnjkKUD6ZCndBEFrRq PcIrFsThW1F5FoQpg1APL cqQotJJ8hJ1Ek QOTpbmwqprroyNA8ARQnM VNhlD73eRUsFJhdJo0kh4 R9h205FAZxJWLiwJ09Dj9 udDogMTBwdCBU vX0khaizt1qvbeesIuOcE QBcOFy3AFf1MPZdfNmjAm FaLEQ8SoB6BNG4zIUnhN8 mhJtmakjekC9r Oyc+E52pbA0aWUN9VCS3k khcSTIuukGwOF61GT27R3 RyPjwvdGFibGU+PGRpdiB qyDeeHM6pKyIg l5xke4YlDBmsK2UhQSDdX EqwBdy5STWjNAR1jQL7wC 4kESZrTEzec3Y9cLZ4Q6T znfPlos5lp0je YGIbGJqqB03ftEPwo8J0L STzlXQ2WIGjcCifOwFmzG 93Oyc+PPBifOkri5WgGph ry5end9atmOo6 AjCjCCWftcIssHbuITN3m 2DaYs17M96pZKxfGPBjCE DvKKLlYXReaDafwh6cpK9 wIi8+PGNvbCB3 kMA6aP6jARVvThM5HTjqQ 887WzPepYOjAsfbk8hdk1 plnMr0NjFfKRFuvtMlaQp sOJH7e6ZjFl41 V69eUQakNGFhXLMcDDGvZ KGyuWbyah3fcV8sLg1+PC 3in6wpkk49mJ87oEC+PHR qHFQ7mDgcOUju AEWzlK6qICjuWdP0KDFqY uKyzI07oBCtRMmhEp2syO kgfGsqYV4fIBRguipbx42 2UjCym5nvXUVk uBMuGWuvBKX8R39is6H0R VDrGUGnEKT3nKN4mE7jxL lnbjogbGVmdDsgdmVydGl oVPesILizT944 IHRvcDsnPlBhdGllbnQgT mIxFEe5E9MbFao1MFKeuG ejVS5waIDuUYweTj0iqXv axKisCY6gLJBp dfygb376HgJcx1hlJCLib OZzTXhwAEU6K81hg2G4QP UdCUVdLAH3zTD6fD2diNf nbjogbGVmdDsg hoMqvRisUWwcJRpjR272Y HRvcDsnPkJpcnRoIERhdG V4NW68RW38bGEew0X2aCP 2C8EcSJCevdwa tuntbRM1YXFkAQLnsG27U f3grUfwXl6bTIWjKDW3JW CkcCIiI3IkeA6lCzRoRXG sDOQuZ9DklFCq CTgvN347CIboNjW3VVTil yEcH9RhWIFlcAoaEkC0p1 D6Il2OE7U4JO50TM61jRI gg7A0dIT5C5Uz YBJgorgsthgymPL7FWRhZ IWwwV57En3pcVczPp3vPK XvKEI3HKWtgZCpX3RuiX6 yOiAjMDAwMDAw P6WviOVfWYwvX438GNegH rA2DPJoppNyA5YjFPOpmV ohYmX4p5A6Wt8ALNa2KA4 1FA65hUIpv0B4 kAP2K2SiTTHegvsdvkivy FY2BLHaUPSbgQ84Vz0flN tbWa6gXSHnSWD2NPYdpQC dN3ZksS4sHdCm ZWRkLFAxI5AkyVUsSVvsU 421KPdoVbF0KAGgiuOfX7 IaLTGxdKxwXlY2x5C1Et7 PSYFcOK36PFP6 sBH0LZ35SS17E5DhHpdur GFibGU+PHRhYmxlIHdpZH RoPScxMDAlJyBzdHlsZT0 iUr0jYBZgWEKx nDvzzUEcIjOzw5seHLZkU NamKD7yvCroZ3MnuGP2HE Uze7t9Ek43L07iA5GzyEI +SXNgaQA9dMF1 vG5dXbTcAdQ6BVgkV570O tXxuHRnUpmzi3emx6uukK d3MvK0ULIfgzCwyTbmOEZ 4t3YtEg44I62z IHdpZHRoPSIxNSUiIHZhb Hhwwo1igH6sTc6+PGNvbC I5cIF5kD7uXdLlLsY4NIz zY545IjXjkUDa Owixb5ycv0arwTr4EjWjH KYbaoPhpPwqMPD0i4XgKw 92A8XmuOfex7SrJmy3zz3 6sVQdm4N2sRD9 F8MsMOEhiugokOQisDvkB D4vTWIeerzhYKZjuM1jES YoH0m0ZwXlMbX7CIezZ5X iefB4ZKMsuRAt FKrbVTQ3F21jv1S5VKKwJ SElUXV3cAL9jV3mpDrmky ogbGVmdDsgdmVydGljYWw jNVysQ691VFAd dHkpSGBdkP6kNYXbbYLek RzfLS0vHWMuhqgdKacVHA mTTEKGXI3UJDVmPJhgpPE +NSBwZUO8wRqi VFakSWVeuW9vWJOoF4x2W gRqNwH9XTjtV5JcUYXwqr mvWv35yE3bLwTqVlT8CFw iB8UitrZ4MEGg eWCfPGdfKAF7F23bj5A2A LCeOVHeJCF4jMB2yU2mrS lnbjogbGVmdDsgdmVydGl uNSuhYIbrX077 DILsjZciMlYgWrAnNmG0R Hd3H2EvJin6BGWsjHgoMK 6dtVCyUHqlLo4smFhfcHh wJA7wUKUuhbrj VUAbrB7zZLMdgBHhrLgsK K8oNEBhwkbny197KbKeGP L6EDLfqUZwO0WkyY7jDpC tIARrJILxZ5Jk wGVaFVtlV400HCnqWvI1H CShzvFkE3ViLBIawQumFe A7i4Y9Ek84CqVTWUMufao vdGQ+PHRkIHN0 kLxpTQswVSDzdO4sGZXyA 2r3ExHdBvX5DGkrS1XwAG RqcopyHp42kC9pVvFbXbC 7BWlkW1WaomF3 INPcmWFkCUsxYRU5Y55xo 7E4NQJzOISuHJX3yNT6dF 1hbGlnbjogbGVmdDsgdmV ydGljYWwtYWxp R004DLOulUnzOk7abCW7Y 5JwLpv7FCJszXtdQS0nwR ViCKsgCi5ccSsevFpyMM1 wNTBpbjtwYWRk qR4uXDLmvMWniStyDH4hW BKeqohlj300YjPxLZG6SM QvrYJlU4ZxwZ2tQoAyWFY eLAFiA1AxiKWz DXxpS983DIhuFpN9PVAnj kNtF7IuEFAfnWavIvO9r4 H5Pw5ZeCGmP3RgQ5u9W7W kPjwvdHI+PC90 SBEoZG38qVZyyUAko9lof Bq0YxRnKZZzFBF7oKlbQN xkh3FbNKIbF68nlZTco0L 6IGNvbGxhcHNl MsAweWV3rU2fILjkwncek 0ucbbleIotkw6srad01qS 81J11uYFjeWELuZSTmVPW uWGJadWlkvx0x gN3uHh0+VJJsbWI2kMF5l Q1mOiElAiL6XNqeV605Cu ZquZNmIbvod5oec9aooSj 9IjIwJSIgdmFs fOjkNJW8q7TaRn42H99iP HdpZHRoPSIyMCUiIHZhbG cxbb3ysJ6zDr8+QW3yt5t uby51kQ21cCG+ DDQcRTI9aPixBKreUTAmw B2eWVtsMeN8UVPcXgOvkZ 81zBFtPEitGy8egNxktGj cIS3jZRZxymds y179HyFhb7emCRXnyCKeO IlgEQO0K67ox0Z3ZVSxQA MqPYI3kYS4fT5loQakulj gbGVmdDsgdmVy pBrnKMaxZTdlS177WBDgr YkhYnKeeDNdC1vijiVENQ 1lOjwvdGQ+LMPsZUL0fBr uVPikMJRhpD1a PLHoI7n4FwEcNcA9KWhrW 5AeccR0ZSDuoKJbWITzhO NYpV1njmfbs7fvswijYjC yNCNeZSu5UQa0 CTJwjGflZfDhOQL5AcC6Z EM4kEInqB6tmNfnpvvowB 9wOyc+RklOOjwvdGQ+PHR kCBV7kKecWHtb ZRClpF2dCJMrR0e3OjTkO zF9EEhcK6WpuiF6CUTiqG WcCLTqbVORaD0hwiuup1x vcjogIzAwMDAw UIa3TOv3DJOdnEgbBoNkE AA6GuQ0OLR9pXEhoL5uoI pfhziomJ0qUzf+TVJOOjw vdGQ+PHRkIHN0 oGsjRDpdRPYdxP9vELBeO 7k3EyScLcW4YUbmA7Pvir T1QRBfcHNoEABtuTHMgV6 pjjxxu5yasech HjYfLKIrVFd2HEx9NCRql QzhSoBqOBC8YfL0MIU9aF PnmO8jiSzgrbkdcV5sFuv +DQQ3NDW8DC99 CH30T7ZvBzziwIPeyDU+P HRhYmxlIHdpZHRoPScxMD JrJlHcvBmnWW3nUf5aIIX yLWNvbGxhcHNl ZiRid0qq (more content not included)... Normal [facility] Coding Summary.on 07-10-2022 Coding Summary. CD:[id number]:[id number] G h0bWw+PGhlYWQ+YN0TPDT wA07vqROkjT3bS1JQJFgA SywgQVBQTElOSyIgbmFtZ R7cnYJcVDZo IC8+QA5lIDIdHdfrgEJiu 0Q4wEV6M47eyx2tCZymsF M8MVQtHaGjazslz2agsRh 6IDcuNmluOyBt UUBvmX45RRS4cX32Ee28a PApsNVdc1jnvHd9GgIgOO IqMKG5tYuaHVqcw0JsHQP tY16kuFZyk2F0 QNDucGvraOWtSpJfxUC3h C1gSHiuxzxmp6pmbzqdMq l2xd72qAOma3Z0qZT1P6Y usrN1RGSbsDRa QiazeJNSeC5luyalw1spe jmrDpTrDZKpINi1GWw8QS UjzUdjGgSpDS37KHB2XVV ooaChW0XlQVFo aJnhGtE0t4P4Hu4RU6XKM uobC9AMQDFPVJrfzKC+PC 76ot30D4BmFzgdQnt9JDH xWLA0dZX2eH5z IPMwORdfg9L7zMD6S2Ppi nBmro1ur7zgJZHbBMqgH9 0vdHRqq6J8BSOxuZB3WWD jpKijBsDupP99 Oyc+TJCvkVpmm9LbPoajt 6xbq7mfkSa6GxgtAYQjag SplYldTKM3w9DdKy2yWWV eiTP6aAI7eN6l VwZgVuX8EMriZ176QgDrp OWjIxqsW05vI1OboFW+PH RhGff5RGYvzKitOJ7kA5M hZGRpbmctbGVm uGqvIE6bQHRthmwoQLYhx R2vLBTiI5v2XeYxCuW3IL tkS7CaHLYvjozlUu03iR6 sHwKpUbO3TYlf L3EbuzS3XFGuuBTpTEinZ VV2Y76ns3S1VSEzFLPqSY K1xEL9jY8zfTncujnooZQ mdDsgdmVydGlj VZqlMVdkL211LTUxjPqfN kNvZGluZyBEYXRlOiAgMD MvMTQvMjAyMzwvdGQ+PHR iFIC4sVzcTDFl pOZmYHkaPg4llMtnaVslH H7jEVBrjexiUZHwwI0cKC WpxWNbjSapDN4qWAGeyai pe826IyBpMMR0 RGQyoWLvS9TrbT8lPaBsG EFnNXJiM5EvhOPuQNenO6 10XFjnLaF0DUYbleXmJ0Z sLWFsaWduOiB0 d2S2Fz6Ad7CrnmunT2Eef BYrCoRlXndmSKs0F2PpTk wvdHI+XO46NOGeAI54MFc 5JVU8dRyePCez ECDjV4LueM1tAoQkPAUkP GRkOyc+PHRhYmxlIHdpZH RoPScxMDAlJyBzdHlsZT0 tGx0kHGYcBPJa sStlvANmBvVbh9tnKXErH NidTI4ihKraE9UbwZG0XS Gpn3w2Sa08V31tS0QrqNH +TEOevNC6lPY5 lG8fFmMlTvB2GSdiS532C wHkxBPuRdjtz9vwd4kerA u6PsV6ISAdybWwbMvvLTZ 1l7ObJu89P59d IHdpZHRoPSIxNSUiIHZhb Whazd9lyT7mBd6+PGNvbC C1wGO3eC4yIzUpUpE8ZHc wD069DkQdzDWk Xcfoa5ams7netFq8AmFtB DZsvsPbgJnjPAN2j2HbVd 86F2JzcXokh1ZgHkq7zx9 2bLFxp6Q3gHV1 Q7SiOYQqtojzkJKfuPzaJ L7oYGVciormGVQxzP9yBT VmM0o4NkSiJbT9LMcoQ9U bgkK2TZGidOEk ATBufRXDbT6yaxekl9smd iqdKrTkBHSbXOs0UKi5MI UhyKfhFsLpGTK6JqH1THO 7aYZzbL0cxZef kwcyyC6aWjg+DWV9eYCxr BMJJI4hZjcroCF+PHRkIH D8wDkeRZrgVODhjB4pRPF hD9c8LrSfKoT0 ZOngL9AsufZ3JDLmgRDjZ WOtpRAVgF1npqziy6tbqr emRnTvFOMxGOn7TUt0JUF saWduOiBsZWZ0 VnU6DLB4eRKdxC6qdMwhd mrjnU2wSyf+QmlydGggRG N3IDw9H8VsMbc8YAZzcWe xXE5mtBBgZFcm Sv0ovAmniXefTB1hXQEan koyu045MkXor5vfRJGcmZ CdCUugPVR0V94pj4M6XBZ tEVFcPFS1wBJ7 nY3ikHytukhrtMUmjRgwh pSbxRxkLCwmWPniE192AS TufAdjUlUqTHf0H8JwUfm 5DJQirKcuNN4s dNKeTAfgEw6wrLxdfCccJ I0yBRSxsqwfw237IuTib4 bpZCTndHAhDTdaQTZ0I74 dk0W9DSIgPRZr TXF3hIC2aE4eaAzyxsahy GVmdDsgdmVydGljYWwtYW vgV232EHVduCtgQqLknRn 7N8QcFxa5NUFh jPekGP0shSKtWZzoHc7wc ZouwMomFZ2cHUCjohwvr3 03LiQcu8anWBGvkIUbDYq cVGE5X56xd9O7 UOGpHVGmBHT9zWD1iJ6ct GlnbjogbGVmdDsgdmVydG zfLWzuBZlyF246MNMmzQp nPlBhdGllbnQg UIiuBDz4C3RzOzwhsWA+P H93FIPiAS07qYUfcTAyc7 kowIq6AfCvAGAqTHZ1nZm lCQjoe0VtLZHu H83slBWas1G5DLZqbPrvc WJdHkHxbCV0eY9jMSdujj rpb1vkjlckGxrub5plwz9 8eU79I28cERam ZHRoPSIzMCUiIHZhbGlnb f5rvG3aLe2+PIZkcHA1kC E8gX3sOCPfWhL3OWtyV61 9InRvcCIvPjxj e9pps5lmcLd8AjO6CFZvi hPkiNhyRNZ2m5MnBl34Y5 9sIHdpZHRoPSIyMCUiIHZ ahNngcn4dlK8m Ii8+PAZalFR9bJI5sD2hN xGrXhR6KLshV520AnPvzE VsXqcqV18oN1JheLB+PHR yVdm1UPMfsCjo VZ2vjOUqSJbwAr3zTOJ7C xTiWqXiEDmcV5ZkDLFeld ojrhioeVG9NMGmFEDfjK3 0Qx2zdNhvWNEb tVZIlN2owmpte7xnryppD fUwKHTcWRa2WEa8NWTetC rvCvSqZLR4IuZ2SMY6tED dmD7ikBmrspnh kT6aQ3WtECOyiuihLu17r L1nKmZuAsB8BDbmJpf+R0 NHKVdkONCEZ80EEzXHXO9 9CE60mNZsk8P2 sHR2W8CrNFJwshegofyxw LJ0NXWhFBBcqI55vOAhQD niMg9hp8T2x985LKVgBQK zaG06Yf0efZgw PSYbiFUIhV1rtabtg6cra ywiEiZjQZHrIJe8NDl6ON JtdHjvSyRxZSI9LaE8NMB 1lXGpxD1ipEut kiyeoC5nRys+MDEvMTIvM Oq4UurauNR+RGQeHCN5mE mwRXobQHZhnS0uVBFcK1u 5CzFxJzY8MWhi F2MjOEPmyzdqNj87vC7fV vEiRxX5WWesV9FkpeI3EY NnoANdEMkxOKM4N96rm1J 9YKUyWYCcOKU0 tZT2cI3xsZfqoofuiEUxs DsgdmVydGljYWwtYWxpZ2 36NRYkgYrjFic0QXydGGJ xFZ04XO91wXCb s0R5gVQ4I8UzSWOjtcxya ovksWT1EDYaOXGxeX99bU UoYXziSf9zy4M0d304SNQ yWPCniR37Cf3d iYzlFEAuqONJkW7awkxds 5bqokbkUzVxGXSsXHy4TN w6CVZpeEcbRyReILO2AqG 3WCN0bDKeaJ7f oYuoendreU4bRmx+TWFsZ TwvdGQ+CSKrVVY5yAafPU wxQDBbyS7gNQZiQ6v4KiP aKlE6LIajP7Rv QCMttuyaFy60zW5uMiFgS vT8QGfdP0UkcnZ6HBVetN CoUCplGER5P85zu3Q9YDU jDJMgYPV3vSI7 aC8tiXhnftzpeWTmhDjlr xClpKdrPAqcEJokT306WK NepTvnZq23hNEhqXnhbzJ 8M7HqIcqgzNS+ OV51KGDpXI27vGXbwPBpc 7frwOe9HkLsSAYdRSM5iQ lhPFrnd9TkWFNiT56qqYZ kb1C2ZSDsiVre rHLkNzLllBQ8fT4cOUucm ketz8orujhvKqfel0hnji 68oO95U98tSIlvXJNuRRC zMCUiIHZhbGln eu8mrJ1mLb5+URVujNI0u UU3vM1aNwTiFzQ0UGvmJ3 93IjWurDKpVxaxa1hlp0d kfWe6KyAsACMa zoMkiOgeRAN4o1IyEi76E 29sIHdpZHRoPSIyMCUiIH VriZpnmz6icH7pOu3+PC9 yh2cbqj57fO42 dHI+BSClGDO6xXulRTxyH NKfyW9hJGplSdD3YHTyQp ZcoT93lRAxLBkdNm8lqCn ppQryJR1vHXJc nhwpn764TqFvt8siYRXbn UGdDHyiKZY3P67jb4U0FD MsTWKrECK2oZD8dG7pcIe nbjogbGVmdDsg whEwvPddVXsgTCvzI977V NQrrBluRiIkhOXoA5cycb SKYR3wLgkuhMJ+PHRkIHN 0eWxlPSdwYWRk dA1nDPBiM5o6ItHjXpS1W ExoZ3ZmgwS5UWHrwFCsHV VuzXRNuZ8mscakx5xlbvy gIzAwMDAwMDt0 CMf3ILXrbPhmPoQyUZA8T qV6MQJ5rETkxE1wcMxdsy jgkL3aFai+RklOOjwvdGQ +FYMhGEW0jJpm GFkcWHXdkE6xWYDrI6n1M oRnMhN0GVewU3GyzgL6KN CcfMLpQDVfmMPQuN3vexf lg2vaxtbbHbIt QZDiPPe2ABa0FKGmeIjyO wUdZHO4OrY6QEF5xDUbmG 1sjCnraqbajJ8tXzk+TVJ OOjwvdGQ+PHRk JCV7hKweNWkoCVStqQ6kH XQlU4q6FyZgNkJ3AUxnE7 KtniT3TEUuqXCxFMCleSE XzN0rheypp3sq jgzvUeQmHDHlINs9YSj1V HZhvJvrEbYfANC8DxT4DD T8dQCybG2kpKihahgdmE0 wOyc+UOT3DAK1 YP94VP85N5WuFgdxhGZuf +PHRhYmxlIHdpZHRoPS ceKOMuRkLwvXbqCV0vGe4 yZGVyLWNvbGxh cHNl (more content not included)... Normal [facility] MRI Shoulder w/o Contrast Sd grecia 07-03-2022 MRI Shoulder w/o Contrast Right Exam [...] Fluid extending into the subacromial subdeltoid bursa. Karu-qz-vbpm contact of Report the humeral head with the acromion consistent with rotator cuff arthropathy. Ordering Provider: Tulio Vaughan FINAL REPORT Dictated: 07/03/2022 1:09 pm Julio Arcos MD Signed (Electronic Signature): 07/03/2022 1:09 pm Signed by: Julio Arcos MD Transcribed by: KALYANI Technologist: BRODY Technical Comments None [facility] Consent for Treatmenton Consent for Treatment [id number]#1 .00CD:127 Normal [facility] RAD - MRI Screening Formon 0 07-02-2022 RAD - MRI Screening Form [id number]#1 .00CD:127 [facility] Physician Orderon 06-29-2022 Physician Order [id number]# 1.00CD:127 [facility] Pre-Certification Formon Pre-Certification Form [id number]# 1.00CD:127 [facility] Discharge Instructionson Discharge Instructions [id number]# 1.00CD:127 Normal [facility] ED Clinical Summaryon 2022 ED Clinical Summary [place] [id number] ED Clinical Summary Person Information Name: NATALYANIGELESTRADA [place]hang [place] Age: 77 Years : 1945 Sex: Male Language: Nepalese PCP: Rinku Encinas III, DO Marital Status: Phone: [phone] Visit Id: Visit Reason: Shoulder injury - [...] 06/24/2022 23:50:53 06/24/2022 23:50:53 06/24/2022 23:50:53 AD[address]ESS: [address] [phone] PHYS DOC NOTES: MEDICAL INFORMATION: Prescriptions Given: Medications [...] up: With: Address: When: Tulio Vaughan [address] [place] [address] Business (1) In 3 days 06/27/2022 With: Address: When: Rinku Encinas [address] [facility], [place] [id number] Business (1) In 3 days DIAGNOSIS: Rotator cuff injury Normal [facility] ED Note-Physicianon 06-25-19 ED Note-Physician Basic Information [...] and Complexity of Problems Differential Diagnosis: [] [facility] Data External documents reviewed: Not applicable My [...] Vaughan In 3 days 06/27/2022 EST [address] [place] [address]- Business (1) Additional Instructions: Rinku Encinas In [address] [place] [id number] Business (1) Additional Instructions: Patient Education How To Use a Sling Attestation Patient seen and evaluated by the physician nurse practitioner physicians assistant. Attending physician was present in the emergency department and supervised care. This visit was performed by both the physician and an APC. I performed all aspects of the MDM as documented. This report was transcribed using voice recognition software. Every effort was made to ensure accuracy, however, inadvertently computerized electromechanical technologist mistakes may be present. Appropriate healthcare PPE was used in evaluating this patient. The patient was placed in a mask. The healthcare provider was wearing mask, gloves, and utilizing proper hand hygiene. All equipment was properly cleansed Problem List/Past Medical History Ongoing BMI 34.0-34.9,adult BPH with urinary obstruction CAD (coronary artery disease) Frequent urination Hx of general matcher use of blood thinners Nocturia Obesity 29-OCT-2013 [...] intramuscular suspensio (more content not included)... Normal [facility] Comment on above: Result Comment: Elec tronically [...] 11/27/2004 Document Revised: 03/28/2018 Document Reviewed: 03/06/2018 Anonymous You Patient Education ? 2019 Liquid. Normal [facility] ED Patient Summaryon 023 ED Patient Summary [place] [id number] Patient Discharge Instructions Person Information Name: ESTRADA PFEIFFER Age: 77 Years Arrival Date: 06/24/2022 21:36:41 Discharge Diagnosis: Rotator cuff injury Primary Care Physician: Rinku Encinas III, DO Provider Information Primary Provider: Josh Obando DO [employer] Helper:Amadou Hobson PA-C The exam and treatment you received in the Emergency Department were for an urgent problem and are not intended as complete care. It is important that you follow up with a doctor, nurse practitioner, or physician?s nurse practitioner physicians assistant for ongoing care. If your symptoms [...] Instructions: With: Address: When: Tulio Vaughan [address] [place] [address] Business (1) In 3 days 06/27/2022 With: Address: When: Rinku Encinas [address] [facility] [place] [address] Business (1) In 3 days In the event that this physician does not participate in your insurance network, please consult with your insurance company to find a nearby participating provider. Patient Education Materials: How To Use a Sling A MESSAGE TO ALL PATIENTS REGARDING OPIOIDS PRESCRIPTION OPIOIDS: WHAT YOU NEED TO KNOW Prescription opioids can be used to help relieve khgwmbpy-ba-fudoul pain and are often prescribed following a [...] addiction, t (more content not included)... Normal [facility] XR Shoulder Complete Righton 06-25-2022 XR Shoulder [...] in mGy = n/a DAP = n/a [facility] Consent for Treatmenton 05-31 Consent for Treatment [id number]#1 .00CD:127 [facility] Coding Summary.on 06-04-2022 Coding Summary. CD:[id number] G h0bWw+PGhlYWQ+QV2XHCG kT86ocTEezO0DN9pYZO9Z QVRJQUONQK5DPJ8paMU8K FzdL9TzkeGi NhfsyPNeXV55QEf2ZBN8q RagQGbzsN5exCDxQ8c5Vj HyDP76lI69RZqrWACpEzI 3LjZpbjsgbWFy Z6mdWoErvFIvDyg+PHRhY mxlIHdpZHRoPScxMDAlJy WbdNfbBN1uLd0yPBIzYEG vbGxhcHNlOiBj a6ucKOXeLOxaEM0kwIxxQ 8AihWU7OAIqx5y0Lo81oQ I+UGIfIAH2eAutCOqrx07 4LlTtj5oeAJJ0 fFMcJHkpBXH6F98ep5W7K TIlFUCwJGT7vFS8nH8laP ekckenA7LucDScGuK6EJS 8lBVouK1pnBms cwdbzR6gDda+I66WXK0CA TJAHB0YXyx8O2QkWvaxlB I+MW27EFFqCY04dQWzxTC bi9mdxDj0JtSj DOQuSWO9tUfoIIisy6ZfC ZGfE12ryPRlj2M1FIFkvK oqxSHaQbVpvYS0qI1aMIf vwuhdh5wnuheh Reeep6zfmk70vO99K56bU KbzFZMcPFB9HSTkMFTiqY atqo5uvC2kIb7+LQpnq3q vj6qwaEn5HmOi DEAeaoMdxUozZUV5s2RxK u44F4ThrXndr4GsObu7tr 65zOEym7L2ySM2VHpxSPK cvB7yRXelDrS0 USVlOdYbcM95iBObNRyxE h0bpWlqoGeeTW1aWHBfsp ziXDSfzF2hYJHufIAzvJh iLA8gYENinsve j585CcNsQHZ8BLTbvTReA 2XueZ9vNzJiKCCzMPSsR8 ZbhQPoZVtmN608NAxrOrV 4HQKkskXkI7Uz VIOvoEvjZyJ5f6B5Zp2Mv 8KcsqteHXS3UIarUATgOi U1SbSrFvB9U4FfSah9OBR cbResDP1xX0Yp BIOkosoiftzboJB4GUAhI YChkN77fXUlFHywAx0qw8 I4j462UZVhKXWmrT06Cj7 udDogMTBwdCBU wQ0ykvuqb4yxoqowFrKyL DJmZZz6QKv7LIFaoTnoSd DqRLK8ZpU3DVC3yHEzpX7 cvVessrzlnS1r Oyc+D37waH0cMUC7FOX0u jqfSNIsrtLvBG82VP94D3 RyPjwvdGFibGU+PGRpdiB btBkqGM0kNjRh c9onu8TbUOjmR3CwCKUsK LkzZvw7VQGjTIZ3uHN8oP 2fDWZrWOswt9X6yRH8L1R slvVsaz8jz6wa XVOqGQbpN22fxUEuu3T2P ANutXR9MJHyfJvbBaTtzM 93Oyc+MQRjzQymq5QlEic lh8anl2ocdGs0 JtBrMZPzplWhvOxzRPG5q 6VhJp09A60kPWqiHXOaBK CpLPJoQQEweCisef3ijD6 wIi8+PGNvbCB3 rHA2oT3iYITwEcA3LHmhT 445UbOtiXLpWtrak4kqx3 xgtRx3RhUxVDJmtbXreNz fUZB3l9StMo16 M28rITgaSDRrFXVlZLKrG YAkiOhjpp0vgR7sVt1+PC 0rq6tohn21pR99sJQ+PHR gNVL1sVcgILse TQJebX2uQZkeOvK3WKBxP zEdpQ48qBDsMLmcAi3aaU mttAzcSU0iTYXvtkzwu37 8OxKqo3ozXZUz nBMvXUyiSEV1H22ec3K3Y RRiLIBnVRK7kIA8yE8phN lnbjogbGVmdDsgdmVydGl lJVstJTwwP575 IHRvcDsnPlBhdGllbnQgT xJeAGg5Q7IcJmt1MSVjjM wgMO5deYJmACynSe0ziSx umEmhCZ5aSVZi aojyu447DlGze9ulYBBgc ADgBGrvJRO2P47pv2M9AY ZjIDMcHAQ3pKF6aM6xjOa nbjogbGVmdDsg rzCsjSptUIfrMUyqI254L HRvcDsnPkJpcnRoIERhdG Q1DN30AP69aRBhl2F0aGP 9O5QvFVYocpre wgduhZD6AJJlHHUjyV89R c8wuIkhEg8oVECaUGH5IA JzpTUvN5DaiZ7wPwLgOOU aBBYmV8FssHBm YSpmB787CLheKzC3WFGag eDpT9UhUOEsvRofDwC6s0 O9Pp7UL2K4RU25DA24tAD yz1Y0jFF7I4Ej VREkcxompvqmvHS9RJOxP HFoxZ79Ch4ycSxaAl4uKY UtILU8FSEzmSCoF2RlfV5 yOiAjMDAwMDAw A1VpxHLhGGqdV549UBguT xU8BYAtpoRnR4BfSYTadN ouTfQ5l1N3Eq5LPWc1KS2 4UN31qYZzk1L2 fOK1V3PsJYMyphlwauvqc VK7ISWiMIDucQ20Uo2frH szGk7lKCUmMVN6SSNfqEP rT4IxkV7aBwHh JCGqLCUxF1FjvNTdAFmpX 354NVcrXvW9DLXgcqSuV5 JbDQBjiXbgZtT0m9O2Gg6 XRUGsKB91XPN8 zPY4NF14IB84Q9JtBultc GFibGU+PHRhYmxlIHdpZH RoPScxMDAlJyBzdHlsZT0 uPq5jRSTqQUEv jVdfzGStTzJij4rvFZFyD JjkGW1xeIceI3RjhKM0UN Wzv9k8No81T88lW3UxnDR +CNGvwOO5oAC4 zJ3nCqVwGzV7KKrdI941M gKhySKgRszaw6nbl7pifT x3IhW5YKHauqCapMsnALF 7q1XgPe79J91f IHdpZHRoPSIxNSUiIHZhb Kcant6ajJ5kLt1+PGNvbC G3yYO7dA0hJfYnHqN4LUt rQ953TzMkiXGi Vmehw4flb8cfkRl2McAkA NBujvLacZanXOX2z6AmUj 71N9NeiMadd6KsKbv6sp6 2vBVnt5E7fJD8 M5YkVCGhwafzoCVajZjiD T3lFHCouxweEGJxeE5tOM NmJ0w5BlQhZvZ0WYfcB8J ljoI2YAJqgAId MLufNUO4L47nd6U9GJWfA WWuACK5uXM7oP7kgVjeny ogbGVmdDsgdmVydGljYWw rHRsqP974NOPf jXsiSYFfcQ7nBWRblEOeh OiiRV3fBHDuulniMeySOV pTJILUAN2TSBBlTRkdpNM +TPNuQHO4vPcq HCsqBXMsjF4bZDJeK1f7G iIgHiW4YJluE6XyUFTrla nqIq80hO0qFkRtKkD0UYl bZ0FartY2CSXm vAEeFNseAEB5H14sk0C1Y RIwRNGmAAF8jEE9gP0jdJ lnbjogbGVmdDsgdmVydGl iUCqzBFpvM995 FQNkjKyfJbAyBzHaWxI7I Bh9J1QpNzx0VRKoqXzxFJ 0qgMLyKAhjOd9ccPlbmNq bRA1rLXKsfzfq XKGzrQ2qHIQuoPAafBknB W4zGFUpkvqxb665XmZzFZ N3TMPqcONbW9WrrD3mZkJ bCQCoNDBvJ7Ji cBKbJAdpU271CTecVcT3I WWxpsFtP8HkEYFayJmnNu V5j3C8Ly16FkJVMHDvfiv vdGQ+PHRkIHN0 vQhpPHwcQITnqE6pBUAhC 7e6FlKeMbA8XJncQ7DaHM ZhmceuGj08sM2nEdMlNcN 7CTxbJ8QxtmG9 VDCprFKeGEgtKVN3P35yd 4T7UARqCHQkTNS0pFC2bX 1hbGlnbjogbGVmdDsgdmV ydGljYWwtYWxp Q611FTXzfRysKt7bfEE3H 8FnKlo4YZKdwZvtCX8hqG OjBMtzTd8woPoevMfrFX7 wNTBpbjtwYWRk yZ0oWULhmMItaMdrQB9cQ VMviixtl393FkKlGSY5UL OauBNiS9SklO4mJySkKBE fOSZdO9HaoUPs MZowX873URdyVrD6RXAos yZeG0JdAUEuhGrqSpC7u4 E5Lv2UhGFqWSBsYO85LR9 8NS12T1ZcGggc dGFibGU+PHRhYmxlIHdpZ HRoPScxMDAlJyBzdHlsZT 0xVr9tIZLgNSRwvUcidQW bFiKox3clJCZp DLthJQ6lcHicY7CqjBY6C FUkm5n1Xn43Q91cM2XnoT A+LEQuuYG0cFV8kQ9eOaT xIzV8DQouV585 LpScaYWfLwodm4nhn6vhl Bx2VbXbRIVlkpPyyMdcSN J0j4CyLx72J07aLOygEFX oPSIyMCUiIHZh uPslya4ipF9uOe3+PGNvb JV5mTF9sI1uZoHrGsO5XV duV209TwBelCQwKvxyD32 wK4DghVU+PHRy Jrm3XBFoxUjcDQ7viOSdX GkkEl7lFSF6HvPiUyXtVT dyR9SqBPDzhykgltlugQC 1FWZiOPPemL38 Zt8yrIxdBi4rANDhGJL3X RKpwMLqR4CtgA2vZcIdKS RtIUGpW6QuvPRmXMfeU94 5CXrbPcM5KAMz ljAaU7QgRLQxvBhnOrM1a 1K1Ql5KjUkwwMMkBC6tLq JyOFk6A1SmOwx8NFCqxOs fXH3ziGUyYFkk Zx8bnFazfXlvXF5rOJOip ulhl036LdNko4pmVOUwzH MuEKfkZCE6B75qz0C5VOY aONUeEDG4mGP6 lP1knJxculysgXZapEojv uNljDbxXYsiDEyfQ396AE PrrBvcDlULVzi7X6DqXjj 3CDTnfEhhLX8h jRHkORyqOu0fgAjzfQnuO N2xVOVsiatug985OuPwf5 tmYQKonTFjXEhgIJJ2Z71 tm9E4LLObFACt NUR8jCG7cG3blCdsevakt GVmdDsgdmVydGljYWwtYW lpR853IDZjnBzvSy0OGjk 0V4MeKjj6NCPz zAfzWY1rgEZlNIadNt9ir GhpmUiiZQ9aFVQoxuwsj3 37GnJsf9puNOPbdTAcZAe hUVA0T91ci4S0 SDSqSAZnZYN5kKB6tP5kk GlnbjogbGVmdDsgdmVydG ejEPvwEJilC952QJGaxRb nPlBheWVyOjwv dGQ+GB67bt67Y8QuWubpZ ak1YZEtBJR9nXQ2rJ8rHC XdJGcvp3D9qPL9N0LjaaX dme0ol4iwHOFt ZTog (more content not included)... Normal [facility] Office Visit (Cardiology)on 05-31-2022 Follow-up visit Diagnoses/Problems [...] several months ago by vascular surgery at [facility]. Lipid profile from recent testing was reviewed [...] he had venous stripping last year at [facility] 6. Sleep apnea on CPAP machine with compliance. Summer Deshpande MD, [facility] Surgical History Problems History of Cardiac [...] for co (more content not included)... Normal [employer] Tobacco Screening.on 023 Fall risk assessment a) No falls within the last year [facility] 250 DO Work Phone: Tobacco use status CP b) No [facility] 250 DO Work Phone: Tobacco Screening. Yes [facility] 250 DO Work Phone: Xu 05-30-2022 ALT No additional P-5'-P [Catalytic activity/Vol] 14 Int._Unit/L Normal 6-46 [facility] Comment on above: Performed By: #### 2 [id number] ####[facility] [address] [place] [address] [place] 05-30-2022 AST [Catalytic activity/Vol] 16 Int._Unit/L Normal 5-43 [facility] Comment on above: Performed By: #### 2 [id number] ####[facility] [address] [place] [address] CHEMISTRYOrdered By: SYSTEM SYSTEM on 05-30-2022 ALT [...] Remisol Consent for Treatmenton Consent for Treatment [id number] .[id number]:127 Normal [facility] Lipid Panelon 05-30-2022 Cholesterol [Mass/Vol] 138 mg/dL Normal 120-200 [facility] Comment on above: Performed By: #### 2 [id number] ####[facility] [address] [place] [address] Cholesterol in HDL [Mass/Vol] 49 mg/dL Invalid Interpretation Code [facility] Comment on above: Result Comment: HDL > or equal to 60 mg/dL: Low cardiovascular risk HDL < 40 mg/dL : High cardiovascular risk Performed By: #### 2 [id number] ####[facility] [address] [place] [address] Cholesterol in LDL [Mass/Vol] 71 mg/dL Normal <=129 [facility] Comment on above: Performed By: #### 2 [id number] ####[facility] [address] [place] [address] Cholesterol in VLDL [Mass/Vol] 16 mg/dL Normal 7-40 [facility] Comment on above: Performed By: #### 2 [id number] ####[facility] [address] [place] [address] Triglyceride [Mass/Vol] 82 mg/dL Normal <=149 [facility] Comment on above: Performed By: #### 2 [id number] ####[facility] [address] [place] [address] Physician Orderon 05-30-2022 Physician Order [id number] 1.00CD:127 Normal [facility] CHEMISTRYOrdered By: SYSTEM SYSTEM on 02-06-2022 Prostate specific Ag [Mass/Vol] ng/mL Normal 0.1 - 3.5 ng/mL [facility] Remisol Falls Screening (Age 18+)on 11-16-2021 Adult depression screening assessment No [facility] 250 DO Work Phone: Fall risk assessment a) No falls within the last year [facility] 250 DO Work Phone: Tobacco Screening.on 022 Fall risk assessment b) One or more fall s in the last year [facility] 250 DO Work Phone: Tobacco use status CPHS b) No [facility] 250 DO Work Phone: Vital Signs Date Time Vital Sign Value Performing Clinician Facility 05-02-2023 16:00-0500 Body height 180.34 cm Priscila Mccormack Other [facility] Other 05-02-2023 16:00-0500 Body mass index (BMI) [Ratio] 35.56 kg/m2 Priscila Mccormack Other [facility] Other 05-02-2023 16:00-0500 Body weight 115.67 kg Priscila Mccormack Other [facility] Other 05-02-2023 16:00-0500 Diastolic blood pressure 90 mm[Hg] Priscila Mccormack Other [facility] Other 05-02-2023 16:00-0500 SaO2% (BldA) [Mass fraction] 97 % Priscila Mccormack Other [facility] Other 05-02-2023 16:00-0500 Systolic blood pressure 130 mm[Hg] Priscila Mccormack Other [facility] Other 03-18-2023 10:36-0500 Blood Pressure Location Izaguirre Sarmini [facility] 03-18-2023 10:36-0500 Diastolic blood pressure 82 mm[Hg] Izaguirre Sarmini [facility] 03-18-2023 10:36-0500 Heart rate 70 /min Izaguirre Sarmini [facility] 03-18-2023 10:36-0500 Respiratory rate 18 /min Izaguirre Sarmini [facility] 03-18-2023 10:36-0500 Systolic blood pressure 136 mm[Hg] Izaguirre Sarmini [facility] 03-06-2023 15:22-0500 Diastolic blood pressure 85 mm[Hg] ANJELICA CASTRO [facility] 03-06-2023 15:22-0500 Heart rate 74 /min ANJELICA CASTRO [facility] 03-06-2023 15:22-0500 Systolic blood pressure 137 mm[Hg] ANJELICA CASTRO [facility] 12-17-2022 13:33-0400 Body height 180.34 cm Rinku R Encinas Work Phone: [facility] 250 DO Work Phone: 12-17-2022 13:33-0400 Body mass index (BMI) [Ratio] 34.84 kg/m2 Rinku R Encinas Work Phone: [facility] 250 DO Work Phone: 12-17-2022 13:33-0400 Body surface area Derived from formula 2.32 m2 Rinku R Encinas Work Phone: [facility] 250 DO Work Phone: 12-17-2022 13:33-0400 Body weight 113.31 kg Rinku R Encinas Work Phone: [facility] 250 DO Work Phone: 12-17-2022 13:33-0400 Diastolic blood pressure 72 mm[Hg] Rinku R Encinas Work Phone: [facility] 250 DO Work Phone: 12-17-2022 13:33-0400 Heart rate 54 /min Rinku R Encinas Work Phone: [facility] 250 DO Work Phone: 12-17-2022 13:33-0400 Systolic blood pressure 118 mm[Hg] Rinku R Encinas Work Phone: [facility] 250 DO Work Phone: 10-03-2022 13:51-0400 Blood Pressure Location ANJELICAWADE CASTRO [facility] 10-03-2022 13:51-0400 Diastolic blood pressure 74 mm[Hg] ANJELICA MATTHEW [facility] 10-03-2022 13:51-0400 Heart rate 68 /min ANJELICA MATTHEW [facility] 10-03-2022 13:51-0400 Respiratory rate 16 /min ANJELICA MATTHEW [facility] 10-03-2022 13:51-0400 Systolic blood pressure 132 mm[Hg] ANJELICA MATTHEW [facility] 06-24-2022 22:35-0500 Nursing Progress Note Reason Other: portable XR at bedside at this time. Josh Topher [facility] 06-24-2022 21:44-0500 Body temperature 97.7 [degF] Josh Topher [facility] 06-24-2022 21:44-0500 Diastolic blood pressure 91 mm[Hg] Josh Topher [facility] 06-24-2022 21:44-0500 Heart rate 63 /min Josh Topher [facility] 06-24-2022 21:44-0500 Respiratory rate 18 /min Josh Topher [facility] 06-24-2022 21:44-0500 SaO2% (BldA) [Mass fraction] 98 % Josh Topher [facility] 06-24-2022 21:44-0500 Systolic blood pressure 178 mm[Hg] Josh Obando [facility] 05-31-2022 09:15-0500 Body height 180.34 cm Rinku R Encinas Work Phone: [facility] 250 DO Work Phone: 05-31-2022 09:15-0500 Body mass index (BMI) [Ratio] 35.29 kg/m2 Rinku R Encinas Work Phone: [facility] 250 DO Work Phone: 05-31-2022 09:15-0500 Body surface area Derived from formula 2.33 m2 Rinku R Encinas Work Phone: [facility] 250 DO Work Phone: 05-31-2022 09:15-0500 Body weight 114.76 kg Rinku R Encinas Work Phone: [facility] 250 DO Work Phone: 05-31-2022 09:15-0500 Diastolic blood pressure 84 mm[Hg] Rinku R Encinas Work Phone: [facility] 250 DO Work Phone: 05-31-2022 09:15-0500 Heart rate 68 /min Rinku R Encinas Work Phone: [facility] 250 DO Work Phone: 05-31-2022 09:15-0500 Systolic blood pressure 122 mm[Hg] Rinku R Encinas Work Phone: [facility] 250 DO Work Phone: 01-31-2022 16:00-0400 Body height 180.34 cm Priscila Mccormack Other [facility] Other 01-31-2022 16:00-0400 Body mass index (BMI) [Ratio] 35.28 kg/m2 Priscila Mccormack Other [facility] Other 01-31-2022 16:00-0400 Body temperature 97.1 [degF] Priscila Mccormack Other [facility] Other 01-31-2022 16:00-0400 Body weight 114.76 kg Priscila Mccormack Other [facility] Other 01-31-2022 16:00-0400 Diastolic blood pressure 78 mm[Hg] Priscila Mccormack Other [facility] Other 01-31-2022 16:00-0400 SaO2% (BldA) [Mass fraction] 96 % Priscila Mccormack Other [facility] Other 01-31-2022 16:00-0400 Systolic blood pressure 123 mm[Hg] Priscila Mccormack Other [facility] Other 01-29-2022 09:21-0400 Blood Pressure Location Milla Jan [facility] 01-29-2022 09:21-0400 Diastolic blood pressure 80 mm[Hg] Milla [facility] 01-29-2022 09:21-0400 Heart rate 90 /min Remyted [facility] 01-29-2022 09:21-0400 SaO2% (BldA) [Mass fraction] 100 % [facility]yt[facility] 01-29-2022 09:21-0400 Systolic blood pressure 146 mm[Hg] Milla [facility] 12-11-2021 23:00-0400 Diastolic blood pressure 80 mm[Hg] Reji Dickinson [facility] 12-11-2021 23:00-0400 Heart rate 58 /min Reji Dickinson [facility] 12-11-2021 23:00-0400 SaO2% (BldA) [Mass fraction] 98 % Reji Dickinson [facility] 12-11-2021 23:00-0400 Systolic blood pressure 148 mm[Hg] Reji Dickinson [facility] 12-11-2021 22:33-0400 Body temperature 98.24 [degF] Reji Dickinson [facility] 12-11-2021 22:33-0400 Diastolic blood pressure 76 mm[Hg] Reji Dickinson [facility] 12-11-2021 22:33-0400 Heart rate 57 /min Reji Dickinson [facility] 12-11-2021 22:33-0400 Respiratory rate 16 /min Reji Dickinson [facility] 12-11-2021 22:33-0400 SaO2% (BldA) [Mass fraction] 97 % Reji Dickinson [facility] 12-11-2021 22:33-0400 Systolic blood pressure 159 mm[Hg] Reji Dickinson [facility] 11-16-2021 09:24-0400 Body height 180.34 cm Rinku Encinas Work Phone: [facility] 250 DO Work Phone: 11-16-2021 09:24-0400 Body mass index (BMI) [Ratio] 35.29 kg/m2 Rinku R Encinas Work Phone: [facility] 250 DO Work Phone: 11-16-2021 09:24-0400 Body surface area Derived from formula 2.33 m2 Rinku R Encinas Work Phone: [facility] 250 DO Work Phone: 11-16-2021 09:24-0400 Body weight 114.76 kg Rinku Sindy Encinas Work Phone: [facility] 250 DO Work Phone: 11-16-2021 09:24-0400 Diastolic blood pressure 84 mm[Hg] Rinku R Encinas Work Phone: [facility] 250 DO Work Phone: 11-16-2021 09:24-0400 Heart rate 62 /min RinkuMimi Larsoners Work Phone: [facility] 250 DO Work Phone: 11-16-2021 09:24-0400 Systolic blood pressure 122 mm[Hg] Rinku R Encinas Work Phone: [facility] 250 DO Work Phone: 05-08-2021 13:46-0500 Diastolic blood pressure 84 mm[Hg] Rinku R Encinas Work Phone: [facility] 250 DO Work Phone: 05-08-2021 13:46-0500 Systolic blood pressure 126 mm[Hg] Rinku R Encinas Work Phone: [facility] 250 DO Work Phone: 05-08-2021 13:41-0500 Diastolic blood pressure 93 mm[Hg] Rinku R Encinas Work Phone: [facility] 250 DO Work Phone: 05-08-2021 13:41-0500 Systolic blood pressure 132 mm[Hg] Rinku Sindy LarsonEncinas Work Phone: [facility] 250 DO Work Phone: 05-08-2021 13:39-0500 Body height 180.34 cm Rinku Sindy Encinas Work Phone: [facility] 250 DO Work Phone: 05-08-2021 13:39-0500 Body mass index (BMI) [Ratio] 35.01 kg/m2 Rinku Sindy LarsonEncinas Work Phone: [facility] 250 DO Work Phone: 05-08-2021 13:39-0500 Body surface area Derived from formula 2.32 m2 Rinku Callahan Encinas Work Phone: [facility] 250 DO Work Phone: 05-08-2021 13:39-0500 Body weight 113.85 kg RinkuMimi Larsoners Work Phone: [facility] 250 DO Work Phone: 05-08-2021 13:39-0500 Diastolic blood pressure 87 mm[Hg] Rinku Callahan Encinas Work Phone: [facility] 250 DO Work Phone: 05-08-2021 13:39-0500 Heart rate 60 /min Rinku Sindy Encinas Work Phone: [facility] 250 DO Work Phone: 05-08-2021 13:39-0500 Systolic blood pressure 136 mm[Hg] Rinku R Encinas Work Phone: [facility] 250 DO Work Phone: Encounters Encounter Date Encounter Type Care Provider Facility Start: 03-12-2024 ambulatory ANJELICA CASTRO Facili ty:[facility] Start: 05-06-2023 End: 05-06-2023 ambulatory Priscila Mccormcak Other [facility] Other Start: 05-06-2023 Telephone encounter Priscila Mccormack [facility] [address] Start: 05-02-2023 End: 05-02-2023 ambulatory Priscila Mccormack Facility:[facility] Start: 05-02-2023 Office outpatient vi sit 15 minutes Priscila Mccormack [facility] Start: 03-25-2023 End: 03-25-2023 ambulatory KAYLI Ivory BLANK Not Available Start: 03-18-2023 End: 03-19-2023 ambulatory Izaguirre Talal Jessiemini Facility:[facility] Start: 03-18-2023 End: 03-18-2023 Patient encounter procedure Izaguirre Talal Sarmini [facility] Start: 03-06-2023 End: 03-07-2023 ambulatory ANJELICA CASTRO Facility: [place] Start: 03-06-2023 End: 03-06-2023 Patient encounter procedure ANJELICA CASTRO [facility] Start: 03-05-2023 End: 03-06-2023 ambulatory ANJELICA CASTRO Facility:[facility] Start: 03-05-2023 End: 03-05-2023 Patient encounter procedure ANJELICA CASTRO [facility] Start: 02-06-2023 End: 02-07-2023 ambulatory Todd BRAXTON Facility:[facility] Start: 02-06-2023 End: 02-06-2023 Lab Drop off Todd BRAXTON [facility] Start: 02-06-2023 End: 02-06-2023 Patient encounter procedure Todd BRAXTON [facility] [place] Start: 12-17-2022 Office outpatient vi sit 25 minutes Rinku Encinas Work Phone: [facility] 250 DO Work Phone: Start: 12-17-[address] Rinku Encinas III Facility:[id number] Start: 11-19-2022 ambulatory Tulio Vaughan Facility:[facility] Start: 10-16-2022 End: 10-17-2022 ambulatory Todd BRAXTON Facility:[facility] Start: 10-16-2022 End: 10-16-2022 Patient encounter procedure Todd BRAXTON [facility] Start: 10-11-2022 End: 10-12-2022 ambulatory ANJELICA CASTRO Facility:[facility] Start: 10-11-2022 End: 10-11-2022 Patient encounter procedure ANJELICA CASTRO [facility] Start: 10-03-2022 End: 10-04-2022 ambulatory ANJELICA CASTRO Facility:[facility] Start: 10-03-2022 End: 10-03-2022 Lab Drop off ANJELICA MICHELERY [facility] Start: 10-03-2022 End: 10-03-2022 Patient encounter procedure ANJELICA MICHELERY [facility] Start: 09-25-2022 Rx Renewal Rinku harris Work Phone: [facility] 250 DO Work Phone: Start: 07-02-2022 End: 07-03-2022 ambulatory Tulio Vaughan Facility:[facility] Start: 07-02-2022 End: 07-02-2022 Patient encounter procedure Tulio Vaughan [facility] Start: 06-24-2022 End: 06-25-2022 Emergency department patient visit Josh Obando Facility:[facility] Start: 06-24-2022 End: 06-24-2022 Emergency department patient visit Josh Obando [facility] Start: 06-14-2022 End: 06-14-2022 ambulatory Priscila Mccormack Other [facility] [employer] Other Start: 06-14-2022 Telephone encounter Priscila Mccormack [facility] Start: 05-31-[address] Summer Deshpande Facility:[id number] Start: 05-31-2022 Office outpatient vi sit 25 minutes Rinku Encinas Work Phone: [facility] 250 DO Work Phone: Start: 05-30-2022 End: 05-31-2022 ambulatory Summer Deshpande Facility:[facility] Start: 05-30-2022 End: 05-30-2022 Patient encounter procedure Summer Deshpande [facility] Start: 02-06-2022 End: 02-06-2022 Patient encounter procedure Todd BRAXTON [facility] Start: 01-31-2022 End: 01-31-2022 Patient encounter procedure DO Rinku Encinas III Work Phone: [facility] Start: 01-31-2022 End: 01-31-2022 ambulatory DO Rinku Encinas III Work Phone: [facility] Work Phone: Start: 01-31-2022 Office outpatient vi sit 25 minutes Priscila Mccormack [facility] Start: 01-29-2022 End: 01-29-2022 Patient encounter procedure Milla [facility]oya [facility] Start: 01-18-2022 End: 01-18-2022 Patient encounter procedure Milla [facility]oya [facility] Start: 12-11-2021 End: 12-11-2021 Emergency department patient visit Reji Dickinson [facility] Start: 11-16-2021 Office outpatient vi sit 25 minutes Rinku Encinas Work Phone: [facility] 250 DO Work Phone: Start: 10-25-2021 Rx Renewal Rinku Lee rs Work Phone: [facility] 250 DO Work Phone: Start: 08-23-2021 End: 08-23-2021 Patient encounter procedure DO Rinku Encinas III Work Phone: [facility] Start: 05-08-2021 Office outpatient vi sit 25 minutes Rinku Encinas Work Phone: [facility] 250 DO Work Phone: Procedures Date Procedure Procedure Detail Performing Clinician Start: 10-16-2022 Cystourethroscopy wi th dilation of urethral stricture Todd BRAXTON Start: 02-15-2022 Endovenous laser abl ation of varicose vein Summer Deshpande Comment on above: bilateral Start: 06-27-2021 Total knee replacement Reji Dickinson Start: 06-11-2017 Cystoscopy ANJELICA ELENA Comment on above: 12/02/07, 05/1013, 06/11 17 Start: 04-13-2016 left total knee arthroplasty Reji Dickinson Start: 02-23-2014 left shoulder arthro scopy with extensive glenohumeral debridement, subacromial decompression, partial distal clavicectomy, mini-open rotator cuff repair Reji Alok Start: 07-12-2011 Brachytherapy ANJELICA CASTRO Start: 07-12-2011 Implantation of radi oactive seed into prostate Rejinicolle Dickinson Start: 08-12-2007 Laser ablation of prostate Rejinicolle Dickinson Start: 07-15-2007 Cystoscopy Reji Simone terrell Comment on above: 12/02/07, 05/1013, 06/11 17 Start: 07-15-2007 Urodynamic studies Jonathan Dickinson Start: 05-24-2000 Transrectal biopsy o f prostate using ultrasound guidance Reji Dickinson Comment on above: 01/23/11 Arthroplasty of knee Rinku Encinas Work Phone: Comment on above: RIGHT AND LEFT; Cardiac catheterization Raquel and Sindy Encinas Work Phone: Herniated structure (morphologic abnormality) Reji Dickinson Malignant tumor of p rostate (disorder) Rejinicolle Dickinson Comment on above: radiation seed impla nt Percutaneous translu luciana coronary angioplasty Rinku Encinas Work Phone: Procedure on neck Rinku R Huang Work Phone: Procedure on prostate Raquelan d Sindy Encinas Work Phone: Sleep studies Reji Dickinson Stented coronary art krista (finding) Reji Dickinson Total colonoscopy Rinku Callahan Huang Work Phone: Vascular surgery procedure R atilio Callahan Huang Work Phone: Plan of Treatment Date Care Activity Detail Author Start: 06-25-2023 FUV, Provider: Summer Deshpande, Status: Pen, Time: 9:20 AM FUV, Provider: Summer Deshpande, Status: Pen, Time: 9:20 AM [facility] 250 DO Work Phone: Start: 11-29-2022 FUV, Provider: Summer Deshpande, Status: Pen, Time: 9:10 AM FUV, Provider: Summer Deshpande, Status: Pen, Time: 9:10 AM [facility] 250 DO Work Phone: Start: 05-31-2022 FUV, Provider: Summer Deshpande, Status: Pen, Time: 9:00 AM FUV, Provider: Summer Deshpande, Status: Pen, Time: 9:00 AM [facility] 250 DO Work Phone: Start: 11-16-2021 FUV, Provider: Summer Deshpande, Status: Pen, Time: 9:00 AM FUV, Provider: Summer Deshpande, Status: Pen, Time: 9:00 AM [facility] 250 DO Work Phone: Immunizations Immunization Date Immunization Notes Care Provider Jayleen browning 02-19-2023 influenza virus vaccine, unspecified formulation ANJELICA CASTRO [facility] 02-05-2022 Fluzone High-Dose Quadrivalent 0.7 ML Intramuscular Suspension Prefilled Syringe Rinku Encinas Work Phone: [facility] 250 DO Work Phone: 02-05-2022 influenza virus vaccine, unspecified formulation Summer Deshpande [facility] 01-16-2022 SARS-CoV-2 (COVID-19 ) [id number] Summer Deshpande [facility] [facility]2021 Moderna COVID-19 Vaccine 100 MCG/0.5ML Intramuscular Suspension Rinku R Encinas Work Phone: [facility] 250 DO Work Phone: 02-21-2021 influenza virus vaccine, unspecified formulation Summer Alvarengaim [facility] 02-21-2021 influenza, high dose seasonal, preservative-free Rinku R Encinas Work Phone: [place] [address] DO Work Phone: 12-29-2020 tetanus toxoid, redu ivan diphtheria toxoid, and acellular pertussis vaccine, adsorbed Rinku R Encinas Work Phone: [facility] 250 DO Work Phone: 06-22-2020 Moderna COVID-19 Vaccine 100 MCG/0.5ML Intramuscular Suspension Rinku R Encinas Work Phone: [facility] 250 DO Work Phone: Comment on above: Reason for Medicatio n: Other (see comment) 05-25-2020 Moderna COVID-19 Vaccine 100 MCG/0.5ML Intramuscular Suspension Rinku R Encinas Work Phone: [facility] 250 DO Work Phone: Comment on above: Reason for Medicatio n: Other (see comment) 02-08-2020 influenza virus vaccine, unspecified formulation Summer Deshpande [facility] 02-08-2020 influenza, high dose seasonal, preservative-free Rinku R Encinas Work Phone: [place] [address] DO Work Phone: 05-16-2018 pneumococcal conjuga te vaccine, 13 valent Rinku Encinas Work Phone: [facility] 05-08-2018 pneumococcal conjuga te vaccine, 13 valent Rinku Encinas Work Phone: [place] [address] DO Work Phone: 04-29-2018 influenza virus vaccine, unspecified formulation Rinku Encinas Work Phone: [place] [address] DO Work Phone: 04-28-2018 influenza virus vaccine, unspecified formulation Wheeler Deshpande [facility] 05-08-2017 pneumococcal polysaccharide vaccine, 23 valent Rinku Encinas Work Phone: [place] [address] DO Work Phone: 02-27-2017 influenza virus vaccine, unspecified formulation Rinku Encinas Work Phone: [place] [address] DO Work Phone: 02-16-2017 influenza virus vaccine, unspecified formulation Wheeler Deshpande [facility] 02-16-2017 influenza, seasonal, injectable, preservative free Rinku Encinas Work Phone: [place] [address] DO Work Phone: 05-08-2016 influenza virus vaccine, unspecified formulation Rinku Encinas Work Phone: [place] [address] DO Work Phone: 01-30-2016 influenza virus vaccine, unspecified formulation Wheeler Deshpande [facility] 01-30-2016 influenza, seasonal, injectable Rinku Encinas Work Phone: [place] [address] DO Work Phone: 01-30-2016 pneumococcal polysaccharide vaccine, 23 valent Rinku Encinas Work Phone: [facility] 03-29-2015 pneumococcal vaccine , unspecified formulation Rinku R Encinas Work Phone: [place] [address] DO Work Phone: 02-27-2015 influenza virus vaccine, unspecified formulation Rinku R Encinas Work Phone: [place] [address] DO Work Phone: 02-22-2015 influenza virus vaccine, unspecified formulation Wheeler Deshpande [facility] 04-16-2014 pneumococcal polysaccharide vaccine, [address] [facility] Comment on above: Early/Late Reason: N nikolaying Judgment 03-03-2014 influenza virus vaccine, unspecified formulation Rinku Sindy Encinas Work Phone: [place] [address] DO Work Phone: 02-16-2014 influenza virus vaccine, unspecified formulation Wheeler Deshpande [facility] 02-16-2014 influenza, seasonal, injectable Rinku R Encinas Work Phone: [place] [address] DO Work Phone: 02-18-2013 influenza virus vaccine, unspecified formulation Wheeler Deshpande [facility] 02-18-2013 influenza, high dose seasonal, preservative-free Rinku R Encinas Work Phone: [facility] 250 DO Work Phone: 01-27-2013 influenza virus vaccine, unspecified formulation Rinku Encinas Work Phone: [facility] 250 DO Work Phone: 01-04-2013 zoster vaccine, live Summer Deshpande [facility] 12-28-2012 zoster vaccine, live Rinku Encinas Work Phone: [place] [address] DO Work Phone: NEGATED: Highlighted row has not occurred!02-18-2023 influenza virus vaccine, unspecified formulation ANJELICA CASTRO [facility] Health Payers Date Payer Category Payer Private Health Insurance [facility] [id number] 2022 Self-pay [id number] 1945 Unknown [id number] 2.16. [id number] 1945 Unknown [id number] 2.16. 840.1.225639.3.579.2.356 1945 Unknown [id number] 2.16.840 .1.127472.3.579.2.1259 1946 Unknown [id number] 2.16.8 40.1.355700.3.579.2.727 1946 Unknown [id number] 2.16.8 40.1.629006.3.579.2.727 1946 Unknown [id number] 2.16.8 40.1.535118.3.579.2.727 1946 Unknown [id number] 2.16.8 40.1.615686.3.579.2.727 1946 Unknown [id number] 2.16.8 40.1.367818.3.579.2.727 1946 Unknown [id number] 2.16.8 40.1.408114.3.579.2.727 1946 Unknown [id number] 2.16.8 40.1.852086.3.579.2.727 1946 Unknown [id number] 2.16.8 40.1.653197.3.579.2.727 1946 Unknown [id number] 2.16.8 40.1.600553.3.579.2.727 1946 Unknown [id number] 2.16.8 40.1.454407.3.579.2.727 1946 Unknown [id number] 2.16.8 40.1.849326.3.579.2.727 1946 Unknown [id number] 2.16.8 40.1.239137.3.579.2.727 1946 Unknown [id number] 2.16.8 40.1.076942.3.579.2.727 Private Health Insurance [facility] [id number] Unknown [employer]ET[employer] Unknown [id number] 2.16.8 40.1.367726.3.579.2.531 Social History Date Type Detail Facility No alcohol use No alcohol use [facility] 250 DO Work Phone: Comment on above: 1-2 cups of coffee; Start: 1945 Sex Assigned At Male F [facility] Tobacco [facility] Comment on above: Denies. Sex Assigned At Male [facility] Tobacco smoking status No Smokin g Status Entered [facility] Start: 02-07-2022 End: 03-18-2023 Tobacco smoking status Never smoked tobacco (finding) [facility] Tobacco smoking status Never [facility] Medical Equipment Procedure Code Equipment Code Equipment Origin al Text Equipment Identifier Dates KNEE TOTAL ROBOT ARTHROPLASTY Tulio Vaughan DO 06/27/21 Non Biological Knee R {[id number] [id number] FDA Start: 06-27-2021 Functional Status Date Assessment Result Facility 03-18-2023 Functional Status N/A [facility] 03-06-2023 Functional Status N/A [facility] 10-16-2022 Functional Status N/A [facility] 10-03-2022 Functional Status N/A [facility] 06-24-2022 Functional Status N/A [facility] 01-29-2022 Functional Status No [facility] 12-11-2021 Functional Status N/A [facility] Clinical Notes 04-29-2011 to 05-02-2023 Note Date & Type Note Facility 05-02-2023 Evaluation note Encounter Date Diagnosis Assessment Notes Apr, Obstructive sleep apnea (ICD-10 - G47.33) Per patient report, he is using and benefiting from treatment. Unable to achieve a DL to review today, but per patient, symptoms are well controlled so we will not make any changes at this time. We will attempt to locate a recent DL to review and contact pt if there are any indications for adjustments to the prescription. A prescription was sent to the [employer] for new supplies throughout the year, as well as a request to have the temperature and humidity settings reviewed with patient. He was encouraged to continue to use his machine nightly, throughout the entire night and for naps as this does provide clinical benefit. He will follow-up in the sleep clinic in 1 year or sooner pending download. Apr, BMI 35.0-35.9,adult (ICD-10 - Z68.35) Positive effects of weight loss on KATHY were reviewed. He was advised to follow diet modification and increase activity. We will continue to monitor. Apr, Essential hypertension (ICD-10 - I10) Positive effects of controlled KATHY and hypertension were reviewed. Control of sleep apnea will frequently have a positive effect on blood pressure control, and may additionally reduce blood pressure lability. Apr, Other Call if any questions or problems. [...] ordered in a timely fashion. Do not smoke. [facility] Other 11-08-2023 Hospital Discharge instructions Patient Education 03/06/2023 15:42:32 Prostate Cancer Screening Prostate Cancer Screening Prostate cancer screening is testing that is done to check for the presence of prostate cancer in men. The prostate gland is a walnut-sized gland that is located below the bladder and in front of therectum in males. The function of the prostate is to add fluid to semen during ejaculation. Prostatecancer is one of the most common types of cancer in men. Who should have prostate cancer screening? Screening recommendations vary based on age and other risk factors, as well as between the professional organizations who make the recommendations. In general, screening is recommended if: You are age 50 to 70 and have an average risk for prostate cancer. You should talk with your healthcare provider about your need for screening and [...] diagnosed with prostate cancer. The risk is higherif your family member's cancer occurred at an early age or if you have multiple family members withprostate cancer at an early age. ?Being a [...] is a blood test called the prostate-specific antigen(PSA) test. PSA is a protein that is [...] treatment? Where to find more information The [employer] [employer]: www.cancer.org [place] [employer]: www.auanet.org Contact a health care [...] the recommended screening test for prostate cancer, butit has associated risks. Discuss the risks and [...] provider. Document Revised: 10/09/2021 Document Reviewed: 10/09/2021 [employer] Patient Education 2022 Liquid. Follow Up Care 02/07/2022 09:23:28 With:ANJELICA CASTRO PA-C, URL Address: [address] [place] [address]. [place] [address] [phone] When: Unknown Comments:1 yr w/ PSA [facility] [place] 10-09-2023 Note From: Jane Li I To: [facility] - Administrative; Sent: 11/26/2022 15:31:32 EDT Show up: 01/27/2023 15:31:00 EDT Subject: Colonoscopy Recall Reminder/Recall Please call and schedule in office with Dr. Ugalde/Kera for a surveillance colonoscopy. Patient scheduled for 02/19/[address] Ugalde.[facility] 10-16-2022 Evaluation + Plan noteExtracted from: Title:EU Local Male Cystosco py w/ [...] Date:02/13/2023 08:30:00 AM Scheduled Provider:Todd BRAXTON MD Location:[facility] Appointment Type:URO Office Visit Diagnostic Tests Pending * UroVysion Fish and Urine Cyto ([facility]) 10/16/22 [facility]06-20-2023 Note [id number]:[email or web address] 10-16-2022 Hospital Discharge instructions Patient Education 10/16/2022 [...] BRAXTON Address: [facility] [address] [place] [address] [facility] (1) When: Unknown Comments:Keep scheduled appointment [facility]06-20-2023 NoteCustom Cystoscopy ? Voiding after the [...] if you have a fever over 100 degrees.[facility] 10-03-2022 Hospital Discharge instructions Patient Education 10/03/2022 [...] Follow these instructions at home: Medicines Take shxl-gxc-hjuaspn and prescription medicines only as told by [...] or the blood stops without treatment. Take yxdt-zgj-lgdvnxk and prescription medicines only as told by your health care provider. Drink enough fluid to keep your urine pale yellow. This information is not intended to replace advice given to you by your health care provider. Make sure you discuss any questions you have with your health care provider. Document Revised: 12/14/2020 Document Reviewed: 12/14/2020 [employer] You Patient Education 2022 Liquid. Follow Up Care 09/06/2022 09:26:45 With:MATTHEW CASTRO, ANJELICA Meza, URL Address: [address] [place] [address] When: Unknown [facility] 02-27-2023 Hospital Discharge instructions Patient Education [...] 11/27/2004 Document Revised: 03/28/2018 Document Reviewed: 03/06/2018 [employer] You Patient Education 2020 [employer] Inc[employer] Follow Up Care 06/24/2022 21:38:40 With:Tulio Vaughan Address: [address] [place] [address]- Business (1) When:06/27/2022 With:Rinku Encinas Address: [address] [address]- Business (1) When:Within 3 Day([address]) [facility]10-05-2022 Evaluation note* Encounter Date Diagnosis Assessment Notes Treatment Notes Treatment Clinical Notes Jan, Obstructive sleep apnea (ICD-10 - G47.33) Fortunately patient is using and benefiting from treatment. Download was reviewed with patient. His AHI is elevated at 11.7. We will go ahead and increase his pressure settings to 15/8 to eliminate some breakthrough apneas, an order was sent to the [employer] to have these completed. A prescription was also sent to the [employer] for new supplies throughout the year, as [...] of weight loss on KATHY were reviewed. [facility] Other 08-16-2022 Hospital Discharge instructions Patient Education [...] veins using minimally invasive surgery (subfascial endoscopic commercial teller vein surgery). This method may be used in advanced cases. Follow these instructions at home: Medicines Take and use nibm-rsc-gknpamf and prescription medicines and creams only as [...] 09/01/2009 Document Revised: 10/27/2018 Document Reviewed: 10/27/2018 [employer] You Patient Education 2020 Liquid. Follow Up Care 12/11/2021 22:19:17 With:Milla Montoya Address: [address] [place] [address] [facility] (1) When:12/14/2021 Comments:Call this vascular surgeon to discuss potential therapies for her varicose veins should they continue to become symptomatic. With:Rinku Encinas Address: [address] [place] [address] [facility] [place] [address]- Business (1) When:12/14/2021 Comments:Call the office of [...] to the area. Return with further bleeding. [facility]01-01-2012 History general Narrative - Reported* Type Description Date Medical History Hypertension Medical History BPH Medical History severe KATHY Medical History CAD, one stent Medical History prostate cancer 2011 Surgical History Cardiac Stent Placement 04/2011 Surgical History Seed Implant 06/2011 Surgical History Sebaceous Cyst Excised 2008 Hospitalization History see surgical hx [facility] [facility] Other Evaluation + Plan note Future Appointments Appointment Date:02/07/2022 08:30:00 AM Scheduled Provider:Todd [facility]RA[facility]TON [facility] Future Appointments Appointment Date:01/29/2022 09:15:00 AM Scheduled Provider:Milla Montoya MD Location[facility] Appointment Type:Vascular Follow Up (FT) Appointment Date:02/07/2022 08:30:00 AM Scheduled Provider:Todd BRAXTON MD Location:[facility] [place] Appointment Type:URO [facility] Future Appointments Appointment Date:02/13/2023 08:30:00 AM Scheduled Provider:Todd BRAXTON MD Location:[facility] [place] Appointment Type:URO [facility] Future Appointments Appointment Date:02/13/2023 08:30:00 AM Scheduled Provider:Todd BRAXTON MD Location:[facility] [place] Appointment Type:URO Office Visit Future Scheduled Tests Radiology* CT Abdomen/Pelvis w/o Contrast 10/03/22 [facility] [place] evaluation + Plan note Future Appointments Appointment Date:02/13/2023 08:30:00 AM Scheduled Provider:Todd BRAXTON MD [facility] Type:URO Office Visit Diagnostic Tests Pending * Urine Culture 10/03/22 Future Scheduled Tests Radiology* CT Abdomen/Pelvis w/o Contrast [facility]03[facility] Future Appointments Appointment Date:10/16/2022 08:30:00 AM Scheduled Provider: Location:[facility] Appointment Type:Urology FT Appointment Date:02/13/2023 08:30:00 AM Scheduled Provider:Todd BRAXTON MD Location:[facility] [place] Appointment Type:URO [facility] Future Appointments Appointment Date:02/13/2023 08:30:00 AM Scheduled Provider:Todd BRAXTON MD Location:[facility] [place] Appointment Type:URO Office Visit Appointment Date:02/19/2023 03:00:00 PM Scheduled Provider:Zina Ugalde MD Location:[facility] Appointment Type:BAD New Patient [facility] Evaluation + Plan note Future Appointments Appointment Date:02/13/2023 08:30:00 AM Scheduled Provider:Todd BRAXTON MD [facility] Type:URO Office Visit Appointment Date:02/19/2023 03:00:00 PM Scheduled Provider:Zina Ugalde MD Location:[facility] Appointment Type:BAD New Patient Diagnostic Tests Pending * UroVysion Fish and Urine Cyto ([facility]) [facility]06/[facility] Future Appointments Appointment Date:03/06/2023 03:00:00 PM Scheduled Provider:ANJELICA CASTRO PA-C Location:[facility] Appointment Type:URO Office Visit Appointment Date:03/18/2023 10:15:00 AM Scheduled Provider:Zina Ugalde MD Location:[facility] Appointment Type:BAD [facility] Future Appointments Appointment Date:03/18/2023 10:15:00 AM Scheduled Provider:Zina Ugalde MD Location:[facility] Appointment Type:BADH New Patient Appointment Date:03/12/2024 08:30:00 AM Scheduled Provider:ANJELICA CASTRO PA-C Location:[facility] Appointment Type:URO Office Visit Future Scheduled Tests Laboratory* PSA Total 03/06/24 [facility] Evaluation + Plan note Future Appointments Appointment Date:05/09/2023 10:00:00 AM Scheduled Provider: Location:[facility] Appointment Type:Surgery FT Appointment Date:03/12/2024 08:30:00 AM Scheduled Provider:ANJELICA CASTRO PA-C Location:[facility] Appointment Type:URO Office Visit Future Scheduled Tests Laboratory* PSA Total 03/06/24 * CBC w/ Auto Diff 03/18/23 * Comprehensive Metabolic Panel 03/18/23 [facility] Evaluation noteNo assessment information available [facility] Work Phone: Evalucmtht noteNo [facility]No[facility] [employer] Other Hospital course Narrative No data available [facility] this section [facility] No data available [facility] this [facility] No data available for this section [facility] Chief Complaint * ESTRADA PFEIFFER is [...] several months ago by vascular surgery at [facility]. Lipid profile from recent testing was reviewed [...] he had venous stripping last year at [employer] * 6. Sleep apnea on CPAP machine [...] he had venous stripping last year at [employer] * 6. Sleep apnea on CPAP machine with compliance. * Summer Deshpande MD, FACC Chief Complaint and Reason for Visit Chief Complaint retitration/possible CSA Chief Complaint Sleep apnea 31-90 da y follow up Advance Directives No Advanced Directives Records Found Advance Directive Response Recorded Date/ Time Advance Directives No October 09 6:06pm Family History No Family History Records FoundUnknown Family Member Name Dates Details Stroke syndrome: Mother Status:Active Family history of myocardial infarction: Brother(V17.3, Z82.49) Status:Active Summary Purpose Additional Source Comments Care Teams (unrecognized sec tion and content) Team Status: Inactive Member Role Status Dates Rinku Encinas III , DO Primary Care Provider Active Tuilo Hinojosa MD Attending Provider Active Team Status: [...] section No data available for this sectionNo InformationNo Information REASON FOR VISIT (unrecogniz ed section and content) FOLLOW UPNo InformationAnnua lNo Information (unrecognized sect ion and content) No Status Records FoundNo Status Records FoundNo Status Records FoundNo Status Records FoundNo Status Records Found INFORMATION SOURCE (unrecogn ized section and content) DATE CREATED AUTHOR 12/18/2022 [facility] DATE CREATED AUTHOR AUTHOR'S ORGANIZ ATION 12/18/2022 [employer] DATE CREATED AUTHOR AUTHOR'S ORGANIZ ATION 03/26/[address] [facility] DATE CREATED AUTHOR AUTHOR'S ORGANIZ ATION 05/03/2023 [facility] DATE CREATED AUTHOR AUTHOR'S ORGANIZ ATION 05/06/2023 [facility] FOR RECORDS PERTAINING TO PATIENTS WHO ARE [...] BE BASED ON THE PRIMARY CLINICAL RECORDS. [employer] provides no warranty or guarantee of the accuracy or completeness of information in this document.
== END 2023-05-08 09:33 | disposition home or self-care (01) ==
LOC: VC 09:33
PROVIDERS: Family Provider Family Medicine; PCP Radiology Diagnostic Radiology; Visit Provider Radiology Diagnostic Radiology
DX: I80.02 Phlebitis and thrombophlebitis of superficial vessels of left lower extremity (principal)
CPT/HCPCS: 93971; G0463

== ENCOUNTER 2023-05-29 13:02 | Outpatient (OUT) | payer MEDICARE, SELFPAY ==
--- NOTE | 2023-05-29 13:03 | VEIN_ITS ---
The [address] [address] Patient Name: ESTRADA PFEIFFER MRN: [id number] date: 1945 Sex: M Assigned Patient Location: Current Patient Location: Accession/Order Number: [id number] Exam Date: 05/29/2023 13:05 Report Date: 05/29/2023 15:09 At the request of: KEVIN SON Procedure: VC INJ Foam Sclerosant WUS CLARIFICATION OPERATOR PROCEDURE: VC INJ Foam Sclerosant WUS CLARIFICATION OPERATOR COMPARISON: None. HISTORY: Pain due to varicose veins of bilateral legs I83.813 Pre-operative Diagnosis: CEAP class C4a venous insufficiency with pain, tenderness, edema and incompetent left great saphenous and varicose vein(s), chronic venous insufficiency left leg secondary to venous incompetence Post-operative Diagnosis: CEAP class C4a venous insufficiency with pain, tenderness, edema and incompetent left great saphenous and varicose vein(s), chronic venous insufficiency left leg secondary to venous incompetence Procedure Performed: 1. Ultrasound-guided microfoam chemical ablation with Varithenaregistered 2. Intraoperative ultrasound guidance Anesthesia: None Indications for Procedure: 77 year old male who presents with many years of pain and swelling with hemosiderin staining. The patient failed conservative medical therapy including medical compression stockings, exercise and analgesics. Prior procedures include endovenous laser ablation and Microfoam chemical ablation. Multiple incompetent varicosities of the left leg. Duplex scan showed reflux and enlarged diameters up to 6 mm. The patient underwent informed consent including management options where the complications of infection, bleeding, pain, and skin injury were discussed. Particular attention was spent discussing thrombus extension and deep vein thrombosis as well as the possibility of pulmonary embolus and treatment with oral or injectable blood thinners. Procedure: The patient walked to the procedure room. All applicable staff donned appropriate apparel. A procedure timeout was performed to confirm correct patient, correct extremity, correct procedure, and correct room set-up including presence of all applicable supplies, devices, and drugs. A duplex ultrasound, performed by myself confirmed the location and incompetence of branch saphenous varicosities and their course was marked on the skin together with the dilated tributaries. The extent of treatment of the vein and the associated varicosities was determined through ultrasound mapping. The skin was prepped and then punctured with a butterfly needle and advanced under ultrasound guidance. The Varithenaregistered canister was activated and the canister was primed and purged as required in the instructions for use. Varithenaregistered was drawn into a sterile syringe. The following injections were made: 7 cc injected into a 5 mm varicose vein distal left medial lower leg 4 cc injected into a 6 mm varicose vein left medial mid lower leg 4 cc injected into a 4 mm varicose vein left lateral mid lower leg Varithenaregistered was slowly administered at 0.5-1.0 cc/second with close observation by ultrasound of its course in the vessels. Total volume utilized was: 15 cc. Following administration of Varithenaregistered the leg was elevated and the patient was asked to repeatedly dorsiflex the ankle to limit flow of Varithenaregistered into perforating veins. Once appropriate spasm had been confirmed in the treated veins, the vascular catheter was removed from the leg and light pressure was applied over the puncture site for hemostasis. The common femoral and deep superficial veins were then evaluated for flow and compressibility prior to dressing placement. The lower extremity was kept elevated at 45 degrees above the horizontal and cording material was applied over the saphenous segments and tributaries to allow for eccentric compression over the target vessels including the targeted saphenous vein(s). A multilayer dressing was applied consisting of foam pads, coban and thigh-high 20-30 mm Hg compression elastic support hose were placed on the patient. The leg was lowered only after compression had been applied and the patient was immediately ambulatory. The patient ambulated 10 minutes under supervision and was without apparent concerns at time of release. Post-care instructions include advising patient to keep post-treatment bandages in place and dry for 48 hours, avoid extended periods of inactivity, avoid heavy exercise for one week, wear compression stockings on the treated leg continuously for two weeks, to walk daily for 10 minutes over the next month. The patient was instructed to take an anti-inflammatory medicine as needed and to follow up for color duplex scan of the Saphenous veins, the treated branch saphenous varicosities, the adjacent deep veins, and additional treatment within 7 days. PERSONNEL: Ac Elizabeth RN Electronically authenticated by: KEVIN SON Date: 05/29/2023 15:09
--- OUTSIDE RECORDS SUMMARY | 2023-05-29 13:06 | XMS_ITS | CCD ---
Author Name Unknown Address [address] [place] [address] Organization [facility] Care Team Providers Care Administrative Associate Name Role Phone Rinku Encinas Unavailable Unavailable Unavailable DO Rinku Encinas III Primary Care Provider MD Tulio Hinojosa Attending Provider Rinku nEcinas III Primary Care Physician Asuncion Gonzales Unavailable Unavailable DO Rinku Encinas III Primary Care Provider Mccormack, RN [facility] Priscila Attending Provider Mccormack, Priscila Unavailable Unavailable Unavailable Dr. Rinku Encinas III Primary Care Helena Deshpande, Dr. Summer Douglas Referring Linda vailable Jeramy, Dr. Summer Douglas Attending Linda lincoln Deshpande, Dr. Summer Douglas Attending Linda lincoln Encinas III, Dr. Rinku Callahan Primary Care Helena Deshpande, Dr. Summer Douglas Referring Linda vailable DO Rinku Encinas III Primary Care Provider Mccormack, RN [facility] Priscila Attending Provider [phone] Mccormack, Priscila Attending Unavailable Easton, Priscila Admitting Unavailable Rinku Encinas III Primary Care UnavailSTEPHANIE Goodwin Attending Unavailable STEPHANIE RODNEY Referring Unavailable KAYLI PARSON Attending Unavailable Zina Ugalde Attending Unavaila ble Rinku Encinas Referring Unavailable Zina Ugalde Attending Unavaila ble MATTHEW, ANJELICA Meza Attending Unavailable MATTHEW, ANJELICA Meza Attending Unavailable MATTHEW, ANJELICA Meza Attending Unavailable MATTHEW, ANJELICA Meza Admitting Unavailable MATTHEW, ANJELICA Meza Attending Unavailable CRUZ, Todd Callahan Admitting Unavailable CRUZ, Todd Callahan Attending Unavailable Sarmini, Znia Gallardo Admitting Unavaila ble Sarmini, Zina Gallardo Attending Unavaila ble Deshpande, Summer Admitting Unavailable Deshpande, Summer Attending Unavailable Topher, Josh S. Attending Unavailable Sarmini, Zina Gallardo Admitting Unavaila ble Sarmini, Zina Gallardo Attending Unavaila ble Sarmini, Zina Ashtonal Referring Unavaila ble CRUZ, Todd R Admitting Unavailable CRUZ, Todd Callahan Attending Unavailable CRUZ, Todd Callahan Referring Unavailable Pocos, Tulio Quiñonez Admitting Unavailable Pocos, Tulio Quiñonez Attending Unavailable Pocos, Tulio Quiñonez Referring Unavailable MATTHEW, ANJELICA Meza Referring Unavailable MATTHEW, ANJELICA Meza Admitting Unavailable MATTHEW, ANJELICA Meza Attending Unavailable MATTHEW, ANJELICA Meza Admitting Unavailable MATTHEW, ANJELICA Meza Attending Unavailable CRUZ, Todd Callahan Attending Unavailable Allergies Allergy Classification Reported Allergen(s) Allergy Type Date of Onset Reaction(s) Facility (7 sources) Iodine; Translations: [Iodine SOLN] Drug Allergy Itching, Rash [place] [address] DO Work Phone: (20 sources) Penicillins; Translations: [Penicillins] Allergy to drug (finding) Unknown (qualifier value) [place] [address] DO Work Phone: (12 sources) shellfish, unspecified; Translations: [shellfish] Allergy to substance (finding) Difficulty breathing (finding) [facility] (20 sources) Sulfonamides (Antibiotic); Translations: [Sulfa Drugs] Allergy to drug (finding) Discoloration of skin (finding) [place] [address] DO Work Phone: (19 sources) Calcium Carbonate; Translations: [calcium carbonate] Drug Allergy Swelling, Hives [facility] Comment on above: calcium sulfate (20 sources) Iodine; Translations: [iodine] Drug Allergy Hives, Swelling [facility] (16 sources) Shellfish; Translations: [shellfish] Drug allergy Difficulty breathing (finding) [facility] (19 sources) Fish 1 Propensity to adverse reactions to substance Difficulty breathing (finding) [facility] Comment on above: trout (4 sources) Penicillin Drug Allergy swelling [facility] Other (4 sources) Sulfonamides (Antibiotic) Propensity to adverse reactions rash [employer] [facility] Other (1 source) Calcium; Translations: [Calcium] Drug Allergy [facility] (1 source) Fish - dietary; Translations: [Fish] Propensity to adverse reactions (disorder) [facility]ository Medications Current Medications Medication Drug Class(es) [...] capsule 81 mg = 1 cap(s), Oral, BID, Prophylaxis Start Date: 02/07/22 Status: Ordered Start: 10-05-2020 take 2 tablets by mo uth once daily Aspirin Adult Low Strength 81 MG Oral Tablet Delayed Release take 2 tablets by mouth every day Quantity: 180 Refills: 3 Ordered: 17-Dec-2022 Summer Deshpande MD Start : 05-Oct-2020 Active fill if requested. take 1 tablet by dedrick th once daily Baby Aspirin 81 MG 1 [...] constipation, # 40 cap(s), Refills(s) 0, Pharmacy: [id number], 180, cm, 06/06/21 15:55:00 EST, Height/Length Dosing, 113.6, kg, 06/06/21 15:55:00 EST, Weight Dosing Start Date: 06/27/21 Status: Ordered finasteride 5 mg oral tablet (20 sources) 5-alpha Reductase Inhibitor Start: 05-22-2023 End: 06-21-2023 take 1 tablet by mouth once daily finasteride 5 mg Tab 5 mg = 1 tab(s), Oral, Daily, # 90 tab(s), Refills(s) 3, Pharmacy: [facility], 180, cm, 05/09/23 9:28:00 EST, Height/Length Dosing, 112, kg, 05/09/23 9:28:00 EST, Weight Dosing Start Date: 05/22/23 Status: Ordered Start: 05-18-2020 take 1 tablet by dedrick once daily finasteride 5 mg Tab 5 mg = 1 tab(s), Oral, Daily, # 90 tab(s), Refills(s) 3, Pharmacy: [facility], 180, cm, 10/16/22 8:31:00 EDT, [...] PERSISTS. Quantity: 25 Refills: 11 Ordered: 08-May-2021 Summer Deshpande MD Active Nitroglycerin Ac tive omeprazole 40 mg delayed release oral capsule (3 sources) Proton Pump Inhibitor Start: 05-09-2023 End: 01-28-2025 take 1 capsule by mouth twice daily omeprazole 40 mg Cap-DR 40 mg = 1 cap(s), Oral, BID, X 90 day(s), # 180 cap(s), Refills(s) 6, Pharmacy: [facility], 180, cm, 05/09/23 9:28:00 EST, Height/Length Dosing, 112, kg, 05/09/23 9:28:00 EST, Weight Dosing Start Date: 05/09/23 Stop Date: 01/28/25 Status: Ordered oxyCODONE hydrochloride 5 mg oral tablet (8 [...] 7days, # 40 tab(s), Refills(s) 0, Pharmacy: [facility], 180, cm, 06/06/21 15:55:00 EST, Height/Length [...] completed, # 2 tab(s), Refills(s) 0, Pharmacy: [facility], 180, cm, 10/03/22 13:53:00 EDT, Height/Length [...] Documented Da te Episodic/Chronic Cancer of prostate (19 sources) Malignant tumor of prostate 10-08-2013 Chronic Cancer of prostate (20 sources) History of malignant neoplasm of prostate; Translations: [Personal history of malignant neoplasm of prostate] Onset: 10-03-2022 01-21-2019 Episodic Coronary atherosclerosis and other heart disease (20 sources) Coronary atherosclerosis; Translations: [Coronary atherosclerosis of unspecified type of vessel, wilton or graft] 06-27-2021 Chronic Coronary atherosclerosis and other heart disease (7 sources) Past history of procedure; Translations: [Percutaneous transluminal coronary angioplasty status] Episodic Disorders of lipid metabolism (7 sources) Hyperlipidemia; Translations: [Other and unspecified hyperlipidemia] Chronic Essential hypertension (20 sources) Essential hypertension; Translations: [Unspecified essential hypertension] 10-08-2013 Chronic Gastrointestinal hemorrhage (8 sources) Hematochezia; Translations: [Melena] Onset: 02-18-2023 02-18-2023 Episodic Genitourinary symptoms and ill-defined conditions (20 sources) Post-micturition incontinence ; Translations: [Urge incontinence of urine] 01-21-2019 Chronic Genitourinary symptoms and ill-defined conditions (20 sources) Increased frequency of urination; Translations: [Nocturia] Onset: 10-03-2022 01-21-2019 Episodic Hyperplasia of prostate (20 sources) Benign prostatic hypertrophy with outflow obstruction; Translations: [Benign prostatic hyperplasia with lower urinary tract symptoms] Onset: 10-03-2022 01-21-2019 Chronic Osteoarthritis (19 sources) Osteoarthritis 06-27-2021 Chronic Other and unspecified benign neoplasm (8 sources) History of polyp of colon; Translations: [Personal history of colonic polyps] Onset: 02-18-2023 02-18-2023 Episodic Other and unspecified benign neoplasm (1 source) Polyp of colon; Translations: [Polyp of colon] Onset: 05-09-2023 Episodic Other connective tissue disease (4 sources) Olecranon bursitis; Translations: [Olecranon bursitis of right elbow] Episodic Other diseases of kidney and ureters (1 source) Urinary tract obstruction; Translations: [Other obstructive and reflux uropathy] Onset: 02-06-2022 Episodic Other gastrointestinal disorders (3 sources) Dysphagia; Translations: [Dysphagia, unspecified] Onset: 03-18-2023 Episodic [...] apnea (adult) (pediatric) Chronic Residual codes; unclassified (19 sources) H/O: anticoagulant therapy 01-21-2019 Episodic Varicose [...] Interpretation Reference Range Facility Ambulatory Visit Summaryon 0 05-24-2023 Ambulatory Visit Summary ESTRADA PFEIFFER :1945 Visit Date:05/24/2023 Ambulatory Visit Instructions Your Diagnosis Bloody stools History of colon polyps Dysphagia Your Care Team Attending Physician - Tram DOUGLASS, Zina Gallardo Primary Care Physician - Rinku Encinas III, DO This Is Your Medications List Contact prescribing physician if questions or concerns aspirin (aspirin 81 mg oral capsule) atorvastatin (Lipitor) finasteride (finasteride 5 mg Tab) finasteride (finasteride 5 mg Tab) losartan (losartan 50 mg Tab) omeprazole (omeprazole 40 mg Cap-DR) Procedures Performed Colonoscopy (05/09/2023), Esophagogastroduodenoscopy (05/09/2023), Cystourethroscopy with dilation of urethral stricture (10/16/2022), [...] coronary artery... Discharge Vitals Heart Rate (Peripheral) 68 Respiratory Rate 16 Blood Pressure 138/82 Height 180 cm Height 71 in Weight 117.5 kg Weight 258.5 lb BMI 36.27 What to do next Scheduled Follow-Up Appointments 2023 8:30 AM EST With: ANJELICA NATION PA-C Where: [facility] CBC w/ Auto Diffon 4 Basophil Absolute 0.1 E9/L Normal 0.0-0.2 [facility] Comment on above: Performed By: #### 2 177915, [id number], [id number] ####[address] [address] Basophils/100 WBC (Bld) 1.0 % Normal 0.0-2.0 [facility] Comment on above: Performed By: #### 2 161635, 0939360, [id number] ####[address] [address] Eos Absolute 0.2 E9/L Normal 0.0-0.5 [facility] Comment on above: Performed By: #### 2 397252, 5814237, [id number] ####[address] [address] Eosinophils/100 WBC (Bld) 2.7 % Normal 0.0-8.0 [facility] Comment on above: Performed By: #### 2 252766, 5773382, [id number] ####[address] [address] Erythrocyte distribution width (RBC) [Ratio] 13.7 % Normal 10.9-14.2 [facility] Comment on above: Performed By: #### 2 228169, 4099215, [id number] ####[address] [address] Hematocrit (Bld) [Volume fraction] 40.0 % Normal 37.7-49.0 [facility] Comment on above: Performed By: #### 2 188717, 5560206, [id number] ####[address] [address] Hemoglobin (Bld) [Mass/Vol] 13.2 g/dL Low 13.5-17.5 [facility] Comment on above: Performed By: #### 2 323092, 9986136, [id number] ####[address] [address] Lymph Absolute 2.0 E9/L Normal 1.0-4.0 [facility] Comment on above: Performed By: #### 2 269753, 8248796, [id number] ####[place] [address] [place] [address] Lymphocytes/100 WBC (Bld) 35.0 % Normal 14.0-50.0 [facility] Comment on above: Performed By: #### 2 433050, 7474439, 02994885 ####[address] [address] MCH (RBC) [Entitic mass] 29.1 pg Normal 27.0-34.0 [facility] Comment on above: Performed By: #### 2 223387, 8498460, [id number] ####[address] [address] MCHC (RBC) [Mass/Vol] 33.0 g/dL Normal 31.4-36.0 [facility] Comment on above: Performed By: #### 2 744994, 8218203, 63089870 ####[address] [address] MCV (RBC) [Entitic vol] 88.3 fL Normal 80.0-100.0 [facility] Comment on above: Performed By: #### 2 871513, 2301498, 36264530 ####[address] [address] Upson Absolute 0.6 E9/L Normal 0.2-1.0 [facility] Comment on above: Performed By: #### 2 266588, 6255361, 70106120 ####[address] [address] Monocytes/100 WBC (Bld) 10.1 % Normal 4.0-14.0 [facility] Comment on above: Performed By: #### 2 701589, 9308470, 68587148 ####[address] [address] Neutro Absolute 2.9 E9/L Normal 2.0-7.5 [facility] Comment on above: Performed By: #### 2 178876, 6738893, [id number] ####[facility] [address] [place] [address] Neutro Auto 51.2 % Normal 36.0-75.0 [facility] Comment on above: Performed By: #### 2 485310, 5013951, 72233261 ####[facility] [address] [place] [address] Platelet 125.0 E9/L Low 150.0-500.0 [facility] Comment on above: Performed By: #### 2 626256, 2673682, 62608523 ####[facility] [address] [place] [address] Platelet mean volume (Bld) [Entitic vol] 10.4 fL Normal 6.4-10.8 [facility] Comment on above: Performed By: #### 2 338213, 1189082, 76039602 ####[facility] [address] [place] [address] RBC 4.5 E12/L Normal 4.3-5.9 [facility] Comment on above: Performed By: #### 2 320726, 1603060, 91442110 ####[facility] [address] [place] [address] WBC 5.7 E9/L Normal 4.0-11.0 [facility] Comment on above: Performed By: #### 2 591939, 0214202, 76425999 ####[facility] [address] [place] [address] CHEMISTRYOrdered By: SYSTEM SYSTEM on 05-24-2023 Albumin [Mass/Vol] 4.2 g/dL Normal 3.3 - 5.0 gm/dL Remisol Chem Albumin/Globulin [Mass ratio] 1.5 {ratio} Normal 1.1 - 2.2 [facility] Chem Alk Phos 66 [iU]/d Normal 21 - 98 Int._Unit/L Remisol Chem ALT 11 [iU]/d Normal 6 - 46 Int._Unit/L Remisol Chem Anion gap [Moles/Vol] 12 mmol/L Normal 6 - 16 mEq/L [facility] Chem AST 16 [iU]/d Normal 5 - 43 Int._Unit/L [facility] Chem Bili Total 0.8 mg/dL Normal 0.0 - 1.1 mg/dL [facility] Chem Calcium [Mass/Vol] 9.2 mg/dL Normal 8.9 - 11. 1 mg/dL [facility] Chem Chloride [Moles/Vol] 106 mmol/L Normal 101 - 111 mmol/L [facility] Chem CO2 [Moles/Vol] 25 mmol/L Normal 21 - 31 mmol/L [facility] Chem Creatinine [Mass/Vol] 0.9 mg/dL Normal 0.5 - 1.3 mg/dL [facility] Chem eGFR 88 mL/min/1.73 m2 Normal >=59mL/min / 1.73 m2 [facility] Chem Globulin (S) [Mass/Vol] 2.8 g/dL Normal 1.4 - 4.0 gm/dL [facility] Chem Glucose [Mass/Vol] 84 mg/dL Normal 55 - 199 mg/dL [facility] Chem Potassium [Moles/Vol] 4.3 mmol/L Normal 3.5 - 5.3 mmol/L Rem[facility] Chem Protein [Mass/Vol] 7.0 g/dL Normal 6.0 - 7.8 gm/dL [facility] Chem Sodium [Moles/Vol] 139 mmol/L Normal 135 - 145 mmol/L Remisol Chem Urea nitrogen [Mass/Vol] 18 mg/dL Normal 5 - 21 mg/dL Remisol Chem Urea nitrogen/Creatinine [Mass ratio] 20 mg/mg Normal 10 - 20 Remisol Chem CMPon 05-24-2023 Albumin [Mass/Vol] 4.2 g/dL Normal 3.3-5.0 [facility] Comment on above: Performed By: #### 2 643023, 4438461, 13476768 ####[facility] [address] [place] [address] Albumin/Globulin [Mass ratio] 1.5 {ratio} Normal 1.1-2.2 [facility] Comment on above: Performed By: #### 2 003108, 5026408, [id number] ####[facility] [address] [place] [address] Alk Phos 66 Int._Unit/L Normal 21-98 [facility] Comment on above: Performed By: #### 2 403107, 1671640, [id number] ####[facility] [address] [place] [address] ALT 11 Int._Unit/L Normal 6-46 [facility] Comment on above: Performed By: #### 2 289156, 9040191, 16275048 ####[address] [address] Anion gap [Moles/Vol] 12 mmol/L Normal 6-16 [facility] Comment on above: Performed By: #### 2 898823, 4906774, 88246301 ####[address] [address] AST 16 Int._Unit/L Normal 5-43 [facility] Comment on above: Performed By: #### 2 806972, 0919114, 79200516 ####[address] [address] Bili Total 0.8 mg/dL Normal 0.0-1.1 [facility] Comment on above: Performed By: #### 2 541232, 2564952, 18248358 ####[address] [address] BUN/Creat Ratio 20 No Units Normal 10-20 [facility] Comment on above: Performed By: #### 2 154080, 4897366, 96256911 ####[facility] [address] [place] [address] Calcium [Mass/Vol] 9.2 mg/dL Normal 8.9-11.1 [facility] Comment on above: Performed By: #### 2 385120, 2022456, 57796793 ####[place] [address] [place] [address] Chloride [Moles/Vol] 106 mmol/L Normal 101-111 [facility] Comment on above: Performed By: #### 2 771671, 5078511, 84468313 ####[facility] [address] [place] [address] CO2 [Moles/Vol] 25 mmol/L Normal 21-31 [facility] Comment on above: Performed By: #### 2 231251, 1903716, 72105695 ####[facility] [address] [place] [address] Creatinine [Mass/Vol] 0.9 mg/dL Normal 0.5-1.3 [facility] Comment on above: Performed By: #### 2 803127, 0628433, 71706108 ####[address] [address] Globulin (S) [Mass/Vol] 2.8 g/dL Normal 1.4-4.0 [facility] Comment on above: Performed By: #### 2 752701, 4921105, 17312787 ####[address] [address] Glucose [Mass/Vol] 84 mg/dL Normal 55-199 [facility] Comment on above: Performed By: #### 2 840621, 9129338, 22000243 ####[address] [address] Potassium [Moles/Vol] 4.3 mmol/L Normal 3.5-5.3 [facility] Comment on above: Performed By: #### 2 113504, 1703653, 01306496 ####[place] [address] [place] [address] Protein [Mass/Vol] 7.0 g/dL Normal 6.0-7.8 [facility] Comment on above: Performed By: #### 2 424740, 8797483, 97486840 ####[place] [place] [address] Sodium [Moles/Vol] 139 mmol/L Normal 135-145 [facility] Comment on above: Performed By: #### 2 498891, 6380021, 16490833 ####[facility] [address] [place] [address] Urea nitrogen [Mass/Vol] 18 mg/dL Normal 5-21 [facility] Comment on above: Performed By: #### 2 495180, 6565720, 00015130 ####[facility] [address] [place] [address] Consent for Treatmenton 04-30 Consent for Treatment [id number] Normal [facility] Gastroenterology Office/Clin ic Noteon 05-24-2023 Gastroenterology Office/Clinic Note Chief Complaint f/u EGD/colon HPI Staff This is a 78 year old male who presents today for a follow up to Colonoscopy. Last visit w/ Dr Ugalde Assessment/Plan 1. Bloody stools (K92.1: Melena) minimal resolved Ordered: CBC w/ Auto Diff Comprehensive Metabolic Panel 2. History of colon polyps (Z86.010: Personal history of colonic polyps) time to repeat colonoscopy Had 1.5 cm hyperplastic polyp in the transverse colon and less than 1 cm tubular adenoma 2018 3. Personal history of prostate cancer (Z85.46: Personal history of malignant neoplasm of prostate) 4. Dysphagia (R13.10: Dysphagia, unspecified)Dysphagia It is reasonable to get an EGD with possible dilation Ordered:Colonoscopy (Hospital Procedure) EGD Endoscopy (Hospital Procedure) 5. BMI 34.0-34.9,adult (Z68.34: Body mass index [BMI] 34.0-34.9, adult) EGD 05/09/23 Impression and Plan 1. Large hiatal hernia, 7 cm in size, diaphragm compression at 41 cm, GE junction at 34 cm 2. 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 LA grade C esophagitis 4. Minimal patchy erythema with small food bezoar, random biopsies were taken to rule out H. pylori 5. Normal examined duodenum Colon 05/09/23 Impression and Plan 1. Small internal and external hemorrhoids 2. 1.5 sessile polyp in the ascending colon, removed using EMR, injected 10 milliliter of Everlift and then using hot snare removed the polyp en bloc. I treated the edges with cold biopsy forceps and using coag with the tip of the snare. 2 clips were placed to prevent bleeding at the end of the procedure 3. Moderate sigmoid diverticulosis 4. Normal terminal ileum Final Diagnosis (Verified) A: STOMACH, BIOPSY: ? GASTRIC MUCOSA COMPATIBLE WITH MILD REACTIVE GASTROPATHY. ? NO INTESTINAL METAPLASIA IDENTIFIED. ? NO H. PYLORI MICROORGANISMS IDENTIFIED WITH IMMUNOSTAIN. B: ESOPHAGUS, BIOPSY: ? SQUAMOUS COLUMNAR CELL MUCOSAL JUNCTION WITH SIU'S ESOPHAGUS. ? ULCERATIVE ESOPHAGITIS WITH REACTIVE ATYPIA. ? NEGATIVE FOR DYSPLASIA (SEE COMMENT). C: POLYP, ASCENDING COLON, POLYPECTOMY: ? HYPERPLASTIC POLYP. [facility] Bx Final diagnosis Esophagus, Biopsy -Siu's Esophagus,-4 dysplasia -Squamous esophageal mucosa with ulcerated esophagitis and reactive epithelial change, Negative for dysplasia. History of Present Illness since the surgery, he was having good BM except for 1 episode of bleeding from rectum No heartburn or dysphagia anymore Doing well otherwise Review of Systems PHQ Score Initial Depression Screen Score: 0 SCORE Physical Exam Vitals & Measurements HR: 68(Peripheral) RR: 16 BP: 138/82 HT: 71 in HT: 180 cm WT: 117.5 kg WT: 258.5 lb BMI: 36.27 General: in Nad Assessment/Plan 1. Bloody stools (K92.1: Melena) Due to hemorrhoids, colonoscopy showed 1.5 hyperplastic polyp again removed by EMR Had internal hemorrhoids on retroflexion For symptomatic hemorrhoids please do the following: High fiber diet and stool softeners as needed Preparation H for 7-10 days only (apply after bowel movements) Sitz baths 3 times per day; 100% cotton towel with warm water for cleaning after bowel movements If bleeding recurs, please let us know and we will refer to dr. Urbina for hemorrhoidectomy evaluation 2. History of colon polyps (Z86.010: Personal history of colonic polyps) Large hyperplastic and 1 previous large TA in the past, repeat colonoscopy in 3 years 3. Dysphagia (R13.10: Dysphagia, unspecified) Resolved, but EGD showed 7 cm hiatal hernia with C1 M4 Siu's esophagus without dysphagia Continue PPI, can do 20 twice daily before breakfast and dinner Repeat EGD in 3 years for surveillance Follow-up No qualifying data available Problem List/Past Medical History Ongoing Bloody stools BMI 34.0-34.9,adult BPH with urinary obstruction CAD (coronary artery disease) Frequent urination Gross hematuria History of colon polyps Hx of correction use of blood thinners Nocturia Obesity 29-OCT-2013 12:37:00<$> Obstructive sleep apnea Osteoarthritis Personal history of prostate cancer Post-void dribbling Urge incontinence Historical Coronary artery disease HTN (hypertension) Prostate cancer Procedure/Surgical History Colonoscopy (05/09/2023), Esophagogastroduodenoscopy (05/09/2023), Cystourethroscopy with dilation of urethral stricture (10/16/2022), [...] (05/24/2000), Cancer of prostate, Hernia, Sleep studies, (more content not included)... Normal [facility] Comment on above: Result Comment: Elec tronically Signed By: Tram DOUGLASS, Zina Gallardo\.br\Date and Time Signed: 05/24/23 13:49 EST HEMATOLOGYOrdered By: SYSTEM SYSTEM on 05-24-2023 Basophil Absolute 0.1 E9/L Normal 0.0 - 0.2 E9/L Remisol Heme Basophils/100 WBC (Bld) 1.0 % Normal 0.0 - 2.0 % Remisol Heme Eos Absolute 0.2 E9/L Normal 0.0 - 0.5 E9/L Remisol Heme Eosinophils/100 WBC (Bld) 2.7 % Normal 0.0 - 8.0 % Remisol Heme Erythrocyte distribution width (RBC) [Ratio] 13.7 % Normal 10.9 - 14.2 % Remisol Heme Hematocrit (Bld) [Volume fraction] 40.0 % Normal 37.7 - 49.0 % Remisol Heme Hemoglobin (Bld) [Mass/Vol] 13.2 g/dL Low 13.5 - 17.5 gm/dL Remisol Heme Lymph Absolute 2.0 E9/L Normal 1.0 - 4.0 E9/L Remisol Heme Lymphocytes/100 WBC (Bld) 35.0 % Normal 14.0 - 50.0 % Remisol Heme MCH (RBC) [Entitic mass] 29.1 pg Normal 27.0 - 34.0 pg Remisol Heme MCHC (RBC) [Mass/Vol] 33.0 g/dL Normal 31.4 - 36.0 gm/dL Remisol Heme MCV (RBC) [Entitic vol] 88.3 fL Normal 80.0 - 100.0 fL Remisol Heme Upson Absolute 0.6 E9/L Normal 0.2 - 1.0 E9/L Remisol Heme Monocytes/100 WBC (Bld) 10.1 % Normal 4.0 - 14.0 % Remisol Heme Neutro Absolute 2.9 E9/L Normal 2.0 - 7.5 E9/L Remisol Heme Neutro Auto 51.2 % Normal 36.0 - 75.0 % Remisol Heme Platelet 125.0 E9/L Low 150.0 - 500.0 E9/L Remisol Heme Platelet mean volume (Bld) [Entitic vol] 10.4 fL Normal 6.4 - 10.8 fL Remisol Heme RBC 4.5 E12/L Normal 4.3 - 5.9 E12/L Remisol Heme WBC 5.7 E9/L Normal 4.0 - 11.0 E9/L Remisol Heme Reminderson 05-24-2023 Reminders - From: Sonya Ricks To: [facility] - Reminders/Recalls; Sent: 05/24/2023 13:48:57 EST Show up: 03/29/2026 13:48:00 EST Subject: Ambulatory Reminder Due Date/Time: 04/29/2026 13:48:00 EST Reminder/Recall Entered by Sonya Ricks on May 24, 2023 13:47:46 EST 05/09/2026 3 year colon recall From: Zina Ugalde MD To: Sonya Ricks; Sent: 05/24/2023 13:36:04 EST Subject: General Message Caller Name: ESTRADA PFEIFFER; Caller Number: Ritika , M 3 years plz Normal [facility] eGFRon 05-24-2023 eGFR 88 mL/min/1.73 m2 Normal >=59 [facility] Comment on above: Order Comment: Order added by Discern Expert. Performed By: #### 2 [id number] ####[facility] [id number] [place] [address] Provider Letteron 05-20-2023 Provider Letter (Inserted Image. Linda ble to display) May 20, 2023 ESTRADA PFEIFFER [address] [place] [address] : 1945 Dear Estrada , We have been trying to reach you with no success. It is important that you return our call regarding scheduling a follow up appointment from procedure dated 05-09-23 upon receiving this letter. Also, at the time of your call, please provide us with your current information. Thank you for your prompt attention to this matter. Sincerely, [facility] [phone] Normal [facility] Pathology Reporton Pathology Report [id number] Normal [facility] Postoperative Documentson Postoperative Documents [id number]#[id number] Normal [facility] IntraOperative Documentson 0 05-13-2023 IntraOperative Documents [id number]#[id number] Normal [facility] Progress Note-Physicianon Progress Note-Physician Patient: ESTRADA PFEIFFER Age: 77 years Sex: Male : 1945 Associated Diagnoses: None Author: Tico Huston Jr, DO Preoperative Information Anesthesia Preop Info: Time patient last ate or drank 05/09/2023 00:00:00. Anesthesia history: Patient history: None. Family history+: None. Informed consent: Signed by patient. Re-evaluation prior to induction: Initial evaluation reviewed: No significant change. Review of Systems Eye: Negative except as documented in history of present illness. Ear/Nose/Mouth/Throat: Negative except as documented in history of present illness. Respiratory: Negative except as documented in history of present illness. Cardiovascular: Negative except as documented in history of present illness. Musculoskeletal: Negative except as documented in history of present illness. Neurologic: Negative except as documented in history of present illness. Health Status Allergies: Allergic Reactions (Selected) Severity Not Documented Calcium- Swelling and hives. Fish- Trouble breathing. Iodine- Swelling and hives. Penicillins- Unknown. Shellfish- Trouble breathing. Sulfa drugs- Discoloration of skin. Problem list: All Problems Urge incontinence / SNOMED CT 173501690 / Confirmed Post-void dribbling / SNOMED CT 986215914 / Confirmed Osteoarthritis / SNOMED CT 5315060409 / Confirmed Obstructive sleep apnea / SNOMED CT 725254033 / Confirmed uses CPAP Obesity 29-OCT-2013 12:37:00<$> / SNOMED CT [id number] [id number] / Confirmed Nocturia / SNOMED CT 872051421 / Confirmed Frequent urination / SNOMED CT 083333980 / Confirmed History of colon polyps / SNOMED CT 2013659424 / Confirmed Personal history of prostate cancer / SNOMED CT 6997107771 / Confirmed Bloody stools / SNOMED CT 6939044776 / Confirmed 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 Resolved due to patient discharge. Resolved: Prostate cancer / ICD-9-CM 185 Resolved: HTN (hypertension) / ICD-9-CM 401.9 Resolved: Coronary artery disease / ICD-9-CM 414.00 Histories Procedure history: Cystourethroscopy with dilation of urethral stricture (321356214) on 10/16/2022 at 77 Years. Endovenous laser ablation of varicose vein (7626601697) on 02/15/2022 at 76 Years. Comments: 02/15/2022 11:20 EDT Larry Alicia RN, Gareth A bilateral Total knee replacement (8469504645) on 06/27/2021 at 76 Years. Cysto (12145334) on 06/11/2017 at 72 Years. Comments: 11/18/2018 9:29 Mery Burk 12/02/07, 05/1013, 05/1317 left total knee arthroplasty on 04/13/2016 at 70 Years. left shoulder arthroscopy with extensive glenohumeral debridement, subacromial decompression, partial distal clavicectomy, mini-open rotator cuff repair on 02/23/2014 at 68 Years. Brachytherapy (012549971) on 07/12/2011 at 66 Years. Evolve Laser of Prostate (632263140) on 08/12/2007 at 62 Years. Urodynamics (834374789) on 07/15/2007 at 62 Years. TRUS w/Bx (2496185874) on 05/24/2000 at 55 Years. Comments: 11/18/2018 9:32 Mery Burk 01/23/11 Stented coronary artery ([id number]). Cancer of prostate (7131439732). Comments: 02/23/2014 12:37 LARRY Blake RN, [place] radiation seed implant Sleep studies (535253728). Hernia (1126939731). Social History Social & Psychosocial Habits Alcohol 03/18/2023 Risk Assessment: Denies Alcohol Use Comment: Denies. - 12/11/2021 23:03 - Margaret Nguyen RN Substance Abuse 03/18/2023 Risk Assessment: Denies Substance Abuse Comment: Denies. - 12/11/2021 23:03 - Margaret Nguyen RN Tobacco 03/18/2023 Risk Assessment: Denies Tobacco Use 03/18/2023 Tobacco Use: Never (less than 100 in l Smokeless tobacco use: Never . Physical Examination Airway: Mallampati classification: II (soft palate, fauces, uvula visible). Respiratory: adequate air exchange. Cardiovascular: Regular rhythm. Plan [place] [employer]hesi[employer] (ASA) physical status classification: Class III. Anesthetic Preoperative Plan: Anesthesia General. [facility] Comment on above: Result Comment: Elec tronically Signed By: Tico Huston Jr, DO\.br\Date and Time Signed: 05/13/23 11:25 EST Progress Note-Physician Patient: ESTRADA PFEIFFER Age: 77 years Sex: Male : 1945 Associated Diagnoses: None Author: Tico Huston Jr, DO Postoperative Information Postoperative disposition: Postoperative disposition: To PACU. Optimetrix number: Optimetrix number [id number]. Anesthetic utilized: General. Health Status Allergies: Allergic Reactions (Selected) Severity Not Documented Calcium- Swelling and hives. Fish- Trouble breathing. Iodine- Swelling and hives. Penicillins- Unknown. Shellfish- Trouble breathing. Sulfa drugs- Discoloration of skin. Physical Examination Vital Signs 05/09/2023 11:00 EST Heart Rate Monitored 53 bpm LOW Respiratory Rate Monitored 17 br/min Systolic Blood Pressure 141 mmHg HI Diastolic Blood Pressure 78 mmHg Mean Arterial Pressure, Cuff 99 mmHg SpO2 97 % 05/09/2023 10:45 EST Heart Rate Monitored 60 bpm Respiratory Rate Monitored 23 br/min Systolic Blood Pressure 128 mmHg Diastolic Blood Pressure 75 mmHg Mean Arterial Pressure, Cuff 93 mmHg SpO2 96 % 05/09/2023 10:40 EST Heart Rate Monitored 59 bpm LOW Respiratory Rate Monitored 12 br/min Systolic Blood Pressure 122 mmHg Diastolic Blood Pressure 85 mmHg Mean Arterial Pressure, Cuff 97 mmHg SpO2 95 % 05/09/2023 10:35 EST Heart Rate Monitored 59 bpm LOW Respiratory Rate Monitored 15 br/min Systolic Blood Pressure 130 mmHg Diastolic Blood Pressure 81 mmHg Mean Arterial Pressure, Cuff 97 mmHg SpO2 95 % 05/09/2023 10:30 EST Temperature Temporal Artery 36.7 DegC Heart Rate Monitored 64 bpm Respiratory Rate Monitored 13 br/min Systolic Blood Pressure 126 mmHg Diastolic Blood Pressure 73 mmHg Mean Arterial Pressure, Cuff 91 mmHg SpO2 95 % Pain Assessment: Controlled. General: Awake, Alert, Appropriate. Respiratory: Adequate air exchange. Cardiovascular: Stable, Normal peripheral perfusion. Neurological: Normal sensory function, Normal motor function. Assessment Anesthetic outcome No anesthetic complications noted. Adequate pain relief. able to void without difficulty, able to ambulate with assist, tolerating PO intake, no N/V. Review / Management Condition: Stable. Plan Transfer/Discharge: Transfer/Discharge Discharge when meets criteria ( To home ). Normal [facility] Comment on above: Result Comment: Elec tronically Signed By: Tico Huston Jr, DO\.matt\Date and Time Signed: 05/13/23 11:25 EST Consenton 2023 Consent [id number] [facility] Discharge Instructionson Discharge Instructions [id number]#1.00TIFF [facility] Main OR Intraoperative Recor don 2023 Main OR Intraoperative Record IntraOp Document Type FT Summary Primary Physician: Zina Ugalde MD Finalized Date/Time: 05/10/23 09:38:29 Pt. Name: ESTRADA PFEIFFER/Sex: 1945 Male Med Rec #: [id number] Physician: Zina Ugalde MD Financial #: [id number] Pt. Type: O Room/Bed: / Admit/Disch: 05/09/23 09:12:17 - 05/09/23 23:59:59 Institution: Case Times FT Entry 1 Patient Times In Room 05/09/23 09:40:00 Out Room 05/09/23 10:30:00 Procedure Times Start 05/09/23 09:45:00 Stop 05/09/23 10:27:00 Anesthesia Times Start 05/09/23 09:40:00 Stop 05/09/23 10:30:00 Time at [facility] 05/09/23 10:05:00 Last Modified By: Hernan TAPIA, Jessica Chávez 05/09/23 10:30:57 General Comments: 0954 EGD completed. /,RN 0959 Colonoscopy started. 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 Huston supervising case Last Modified By: Hernan RN, Jessica Becerra RN, Jessica Becerra RN, Jessica Chávez 05/09/23 10:30:59 F 05/09/23 10:30:59 F 05/09/23 10:30:59 Entry 4 Entry 5 Case Attendee Alex JONES, Nimisha Ugalde MD, Zina Gallardo Role Performed Staff - Other Surgeon - Primary Time In 05/09/23 09:40:00 05/09/23 09:40:00 Time Out 05/09/23 10:30:00 05/09/23 10:30:00 Procedure EGD AND COLONOSCOPY(.) EGD AND COLONOSCOPY(.) Comments help in room Last Modified By: Hernan RN, Jesisca Becerra RN, Jessica F 05/09/23 10:30:59 F 05/09/23 10:30:59 Perioperative Protocols FT Pre-Care Text: Implements protective measures prior to operative or invasive procedure, confirms identity before the operative or invasive procedure, verifies operative procedure, surgical site, and laterality Entry 1 Procedure(s) EGD AND COLONOSCOPY(.) Patient Identity Birthday, ID Band Verified (select at Check, Patient least 2): Participation Consents / H and P Anesthesia Consent, Operative Site N/A Verified HandP, Surgery/Procedure Marking Verified Consent Surgical Site No Laterality Verified n/a Verified Procedure Verified Yes Correct Patient Yes Position Verified Availability Equipment, Medication Prep Dry n/a Verified (If Applicable) PreOp Antibiotic No Time Out Hernan TAPIA, Jessica Goodwin F, Nikhil Crisostomo CRNA, Stephani Fitzgerald, Alex JONES, Nimisha Ivory, Tram DOUGLASS, Zina Gallardo Time Out Complete 05/09/23 09:41:00 Outcomes Met? Yes Last Modified By: Jessica Becerra RN 05/09/23 09:43:01 Post-Care Text: The patient is free from signs and symptoms of injury caused by extraneous objects Allergy Information FT Pre-Care Text: Verifies allergies Entry 1 Allergies Reviewed? Yes Allergies Reviewed Self/Patient With Outcomes Met? Yes Last Modified By: Jessica Becerra RN 05/09/23 09:43:08 Post-Care Text: The patient received appropriate medication(s) safely administered during the perioperative period Surgical Procedures FT Entry 1 Procedure Description Procedure EGD AND COLONOSCOPY Modifiers . Surgeon Description EGD with esophageal biopsy, gastric biopsy. Colonoscopy with ascending colon polyp injected with lifting (Everlift) and removed using hot snare with hemoclips x2 placed to polypectomy site. Primary Procedure Yes Primary Surgeon Tram DOUGLASS, Zina Gallardo Start 05/09/23 09:45:00 Stop 05/09/23 10:27:00 Anesthesia Type General Surgical Service Gastroenterology Wound Class 2 - Clean-Contaminated Last Modified By: Jessica Becerra RN 05/09/23 10:27:19 General Case Data FT Pre-Care Text: Classifies surgical wound, implements aseptic technique, initiates traffic control Entry 1 Case Information OR ENDO 1 FT Case Level Level 2 Wound Class 2 - Clean-Contaminated Specialty Gastroenterology ASA Class 3 Preop Diagnosis Dysphagia Postop Same As Preop No Postop Diagnosis EGD- small amount of Outcomes Met? Yes food in stomach, patchy gastritis, esophagitis, large hiatal hernia, large Siu's eosphagus. Colonoscopy- small external hemorrhoids, diverticulosis, ascending colon polyp Last Modified By: Jessica Becerra RN 05/09/23 10:17:23 Post-Care Text: The patient is free from signs and symptoms of infection Skin Assessment (Pre Procedure) FT Pre-Care Text: Implements protective measures to prevent skin/ tissue injury due to thermal or mechanical sources Evaluates for signs and symptoms of physical injury to skin and tissue Entry 1 Skin Integrity Intact, [place], Warm, and Skin Abnormality No Dry Outcomes Met? Yes Last Modified By (more content not included)... Normal [facility] Consent for Treatmenton 04-29 Consent for Treatment [id number] Normal [facility] Discharge Instructionson Discharge Instructions ESTRADA PFEIFFER :1945 Visit Date:05/09/2023 Inpatient Discharge Instructions Your Care Team Admitting Physician - Zina Ugalde MD Referring Physician - Zina Ugalde MD Reason for Your Visit DYSPHAGIA Your Diagnosis Colon polyps Dysphagia Tests Performed Pathology Tissue Exam -- Results Pending -- Please visit your patient portal for your results or contact your primary care physician. This Is Your Medications List aspirin (aspirin 81 mg oral capsule) atorvastatin (Lipitor) finasteride (finasteride 5 mg Tab) losartan (losartan 50 mg Tab) omeprazole (omeprazole 40 mg Cap-DR) Procedure History Colonoscopy (05/09/2023), Esophagogastroduodenoscopy (05/09/2023), Cystourethroscopy with dilation of urethral stricture (10/16/2022), [...] prostate, Hernia, Sleep studies, Stented coronary artery... What to do next Instructions From Your Doctor Event Name Event Result Discharge Activity Resume normal activities in 24 hours Discharge Restrictions No driving for 24 hrs Discharge Diet(s) Regular Call Your Doctor For Persistent or heavy bleeding Pharmacy Information [facility] [place] Discharge Instructions Discharge Instructions Previously Scheduled Follow-Up Appointments 2023 8:30 AM EST With: ANJELICA NATION PA-C Where: [facility] Comment on above: Result Comment: Francisco echevarriaally Signed By: Ortiz TAPIA, Minda Hernandez\.matt\Date and Time Signed: 05/09/23 10:37 EST Endoscopic Procedure Report - Otheron 05-09-2023 Endoscopic Procedure Report - Other Patient: ESTRADA PFEIFFER Age: 77 years Sex: Male : 1945 Associated Diagnoses: None Author: Zina Ugalde MD Pre-Procedure Procedure Date 05/09/2023 10:28:00 . Procedure Type: Colonoscopy with removal of tumor(s), polyp(s), or other lesion(s) by cold snare technique. Procedure provider Performed by Zina Ugalde MD. Current history and physical Documented on chart. Colorectal neoplasm risk assessment High risk Previous history of polyps. . Informed Consent After discussing the rationale, risks and benefits, and alternatives to this procedure, the patient provided signed consent for the procedure. Pre-procedure diagnosis: History of colon polyps. Medications Anticoagulant/antiplatelet None. ASA Classification: Class II. . Monitoring: See anesthesia record. . Procedure The procedure was performed in the hospital. See anesthesia record for sedation given during procedure. The patient was positioned starting in the left lateral decubitus position. Endoscope type used was an adult-size. The endoscope was lubricated then introduced through the anus. The scope was advanced to the terminal ileum. No difficulties encountered during the procedure. The bowel preparation quality was adequate (see polyps greater than or equal to 6 millimeters). The patient tolerated the procedure well. Time to Cec[facility]: 6 min Withdrawal time 22 min Last colonoscopy: 2018 Findings 1. Small internal and external hemorrhoids 2. 1.5 sessile polyp in the ascending colon, removed using EMR, injected 10 milliliter of Everlift and then using hot snare removed the polyp en bloc. I treated the edges with cold biopsy forceps and using coag with the tip of the snare. 2 clips were placed to prevent bleeding at the end of the procedure 3. Moderate sigmoid diverticulosis 4. Normal terminal ileum Images Images will be scanned into the chart Post-Procedure Complications: none. Estimated blood loss: Minimal. Specimens: sent to pathology. Devices/ implants: none left in place. Impression and Plan 1. Small internal and external hemorrhoids 2. 1.5 sessile polyp in the ascending colon, removed using EMR, injected 10 milliliter of Everlift and then using hot snare removed the polyp en bloc. I treated the edges with cold biopsy forceps and using coag with the tip of the snare. 2 clips were placed to prevent bleeding at the end of the procedure 3. Moderate sigmoid diverticulosis 4. Normal terminal ileum Recommendations: Repeat colonoscopy:: In 3 years. Follow-up:: in clinic for 1-2 weeks when pathology is available. Diet:: Previous. Medication resumption:: Continue current medications, Avoid NSAIDs. Return to activities:: After 24 hours. Education and Follow-up: Counseled: Patient, Family. [facility] Comment on above: Result Comment: Elec tronically Signed By: Zina Ugalde MD\.br\Date and Time Signed: 05/09/23 10:32 EST Endoscopic Procedure Report - Other Patient: ESTRADA PFEIFFER Age: 77 years Sex: Male : 1945 Associated Diagnoses: None Author: Zina Ugalde MD Pre-Procedure Procedure Date 05/09/2023 09:55:00 . Procedure Type: Esophagogastroduodenoscopy with biopsy. Procedure provider Performed by Zina Ugalde MD. Current history and physical Documented on chart. Informed Consent After discussing the rationale, risks and benefits, and alternatives to this procedure, the patient provided signed consent for the procedure. Pre-procedure diagnosis: dysphagia. Medications Anticoagulant/antiplatelet None. ASA Classification: Class II. . Monitoring: See anesthesia record. . Procedure The procedure was performed in the hospital. See anesthesia record for sedation given during procedure. The patient was positioned starting in the left lateral decubitus position and with safety measures. Endoscope type used was an adult-size, introduced orally, advanced to the 3rd portion of the duodenum. No difficulty was encountered during the procedure. Views were excellent. The patient tolerated the procedure well. Findings 1. Large hiatal hernia, 7 cm in size, diaphragm compression at 41 cm, GE junction at 34 cm 2. 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 LA grade C esophagitis 4. Minimal patchy erythema with small food bezoar, random biopsies were taken to rule out H. pylori 5. Normal examined duodenum Images Procedure images: Rec1_hd_video__T09_ 58_31_931.jpg Rec1_hd_video__T09_ 57_35_791.jpg Rec1_hd_video__T09_ 57_22_273.jpg Rec1_hd_video__T09_ 56_31_217.jpg Rec1_hd_video__T09_ 56_23_380.jpg Rec1_hd_video__T09_ 56_00_763.jpg Rec1_hd_video__T09_ 55_47_399.jpg Rec1_hd_video__T09_ 55_01_644.jpg Rec1_hd_video__T09_ 54_47_930.jpg Rec1_hd_video__T09_ 53_17_345.jpg Rec1_hd_video__T09_ 53_09_522.jpg . Post-Procedure Complications: none. Estimated blood loss: minimal. Specimens: sent to pathology. Devices/ implants: none left in place. Impression and Plan 1. Large hiatal hernia, 7 cm in size, diaphragm compression at 41 cm, GE junction at 34 cm 2. 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 LA grade C esophagitis 4. Minimal patchy erythema with small food bezoar, random biopsies were taken to rule out H. pylori 5. Normal examined duodenum Recommendations: -Resume previous diet -Resume home medications -Await pathology results, follow in GI clinic in 1-2 after discharge -Omeprazole 40mg daily twice a day 30 minutes before breakfast and dinner Normal [facility] Comment on above: Result Comment: Elec tronically Signed By: Zina Ugalde MD\.br\Date and Time Signed: 05/09/23 09:58 EST Other Comment: Aaliyah wilson Attachment - attachment storage system not supported [id number] [facility] Attachment - attachment storage system not supported [id number] Can be viewed in source systemMissing Attachment - attachment storage system not supported [id number] Can be viewed in source systemMissing Attachment - attachment storage system not supported [id number] Can be viewed in source systemMissing Attachment - attachment storage system not supported [id number] Can be [facility] Attachment - attachment storage system not supported [id number] Can be viewed in source systemMissing Attachment - attachment storage system not supported [id number] Can be viewed in source systemMissing Attachment - attachment storage system not supported [id number] Can be [facility] Attachment - attachment storage system not supported [id number] Can be viewed in source systemMissing Attachment - attachment storage system not supported [id number] Can be viewed in source systemMissing Attachment - attachment storage system not supported [id number] Can be viewed in source system Inpatient Patient Summaryon 05-09-2023 Inpatient Patient Summary [place] [address] [facility] Clinical Discharge Instructions PERSON INFORMATION Name: ESTRADA PFEIFFER PHYSICIANS Admitting Physician: Zina Ugalde MD Attending Physician: Zina Ugalde MD PCP: Rinku Encinas III, DO Discharge Diagnosis: Colon polyps; Dysphagia Comment: PATIENT EDUCATION INFORMATION Instructions: Medication Leaflets: Follow up: Type Location Start Finish State [facility] Office Visit [facility] KIMO HwangDeclo 03/12/2024 8:30 AM 03/12/2024 8:45 AM Confirmed MEDICATION LIST Medications to Continue with No Changes Other Medications aspirin (aspirin 81 mg oral capsule) 1 Capsules By Mouth 2 times a day. atorvastatin (Lipitor) 40 Milligram By Mouth every day. finasteride (finasteride 5 mg Tab) 1 Tablets By Mouth every day. Refills: 3. losartan (losartan 50 mg Tab) 1 Tablets By Mouth every day. Comment: Normal [facility] Main OR PACU I Recordon 04-29 Main OR PACU I Record PACU Phase I Document Type FT Summary Primary Physician: Zina Ugalde MD Finalized Date/Time: 05/09/23 11:23:36 Pt. Name: ESTRADA PFEIFFER/Sex: 1945 Male Med Rec #: [id number] Physician: Zina Ugalde MD Financial #: [id number] Pt. Type: O Room/Bed: / Admit/Disch: 05/09/23 09:12:17 - Institution: Case Times PACU I FT Pre-Care Text: Identifies barriers to communication and implements measures to provide psychological support Develops individualized plan of care, and ensures continuity of care Maintains patient's dignity and privacy, and maintains patient confidentiality Identifies and reports philosophical, cultural, and spiritual beliefs and values Identifies individual values and wishes concerning care Implements aseptic technique, and administers prescribed antibiotic therapy and immunizing agents as ordered Evaluates postoperative tissue perfusion Implements thermoregulation measures, and monitors body temperature Evaluates postoperative respiratory status Evaluates postoperative cardiac status Evaluates postoperative neurological status Assesses pain control, collaborated in initiating patient-controlled analgesia and implements alternative methods of pain control Verifies allergies, administers prescribed medications and solutions, evaluates response to medications Entry 1 In PACU I 05/09/23 10:30:00 Discharge from PACU 05/09/23 11:15:00 I Outcomes Met? Yes Last Modified By: Ortiz TAPIA, Minda Hernandez 05/09/23 11:23:25 Post-Care Text: The patient demonstrates knowledge of the expected response to the operative or invasive procedure The patient's care is consistent with the individualized perioperative plan of care The patient's right to privacy is maintained The patient's value system, lifestyle, ethnicity, and culture are considered, respected, and incorporated into the perioperative plan of care The patient participates in decisions affecting his or her perioperative plan of care The patient is free from signs and symptoms of infection The patient has wound/tissue perfusion consistent with or improved from baseline levels established preoperatively The patient is at or returning to normothermia at the conclusion of the immediate postoperative period The patient's respiratory function is consistent with or improved from baseline levels established preoperatively The patient's cardiovascular status is consistent with or improved from baseline levels established preoperatively The patient's cardiovascular status is consistent with or improved from baseline levels established preoperatively The patient demonstrates and/or reports adequate pain control throughout the perioperative period The patient received appropriate medication(s), safely administered during the perioperative period Acuity Level PACU I FT Entry 1 Start Time 05/09/23 10:30:00 Stop Time 05/09/23 11:15:00 Acuity Level Acuity Level I Last Modified By: Minda Alcantar RN 05/09/23 11:23:33 Finalized By: Minda Alcantar RN Document Signatures Signed By: Minda Alcantar RN 05/09/23 11:23 [facility] Main OR Preoperative Recordo n 05-09-2023 Main OR Preoperative Record Holding Area Document Type FT Summary Primary Physician: Zina Ugalde MD Finalized Date/Time: 05/09/23 09:38:30 Pt. Name: ESTRADA PFEIFFER/Sex: 1945 Male Med Rec #: [id number] Physician: Zina Ugalde MD Financial #: [id number] Pt. Type: O Room/Bed: / Admit/Disch: 05/09/23 09:12:17 - Institution: Case Times Holding FT Pre-Care Text: Verifies consent for planned procedure, identifies individual values and wishes concerning care, includes family members in perioperative teaching Secures patient's records' belongings, and valuables, maintains patient's dignity and privacy, and maintains patient confidentiality Entry 1 In Holding 05/09/23 09:25:00 Outcomes Met? Yes Last Modified By: Ella Jones I 05/09/23 09:36:39 Post-Care Text: The patient participates in decisions affecting his or her perioperative plan of care The patient's right to privacy is maintained Surgery Checklist FT Entry 1 Patient Birthday, ID Band Procedure History and Physical, Identification: Check, Patient Verification: Surgical Consent, With Participation Family, With Patient NPO after Midnight: No Date/Time: 05/09/23 07:00:00 Personal Items: Dentures Personal Items upper partial, clothes, Comment: Bilateral knees, heart stent and right shoulder Limitations: no Complaints of Pain: No Pain Comment: no Operative Site n/a Marking: Marked By: n/a Availability Equipment Verified: Does Patient Smoke No Patient states Yes Comment - Adult postop adult Supervision supervision available Case Cancelled in No Holding Area see comments below for reason Last Modified By: Ella Jones I 05/09/23 09:38:25 General Comments: 100% prep in patient tolerated well, last bowel movement clear yellow./HR, RN Finalized By: Ella Jones I Document Signatures Signed By: Ella Jones I 05/09/23 09:38 Normal [facility] Monitor Recordon 05-09-2023 Monitor Record [id number]#1.00TIFF Normal [facility] Monitor Record [id number]#1.00TIFF [facility] Outpatient Surgery Discharge Instructionon 05-09-2023 Outpatient Surgery Discharge Instruction [place] [id number] Patient Discharge Instructions PERSON INFORMATION Name: ESTRADA PFEIFFER Date of : 1945 Current Date: 05/09/2023 09:54:45 PHYSICIANS Admitting Physician: Tram DOUGLASS, Zina Gallardo Discharge Diagnosis: Colon polyps; Dysphagia ESTRADA PFEIFFER has been given the following list of follow-up instructions, prescriptions, and patient education materials: PATIENT FOLLOW-UP INFORMATION Diet: Regular Discharge Activity: Resume normal activities in 24 hours Discharge Restrictions: No driving for 24 hrs Call Your Doctor For: Persistent or heavy bleeding IF UNABLE TO CONTACT YOUR PHYSICIAN AND YOU FEEL IT IS AN EMERGENCY, GO TO THE NEAREST EMERGENCY ROOM OR CALL 911 KENTRELL Alcantara THOMAS A, have received the attached patient education materials/instructions and have verbalized understanding: May we do a follow up call? Yes No I was present when discharge instructions were given __ Patient Signature Date Clinican/Nurse Signature Date Follow up: Type Location Start Finish State URO Office Visit [facility] KIMO Yanick 03/12/2024 8:30 AM 03/12/2024 8:45 AM Confirmed Pharmacy Information: [facility] You may receive a survey from [employer] asking you to rate your care experience. Your feedback is important and will help us understand what we do well and how we can improve the quality of care we provide to you, your loved ones and our community. It?s an honor to serve you. Thank you for choosing [facility] HERE ARE THE MEDICATION CHANGES THAT OCCURRED DURING YOUR HOSPITAL STAY Medications to Continue with No Changes Other Medications aspirin (aspirin 81 mg oral capsule) 1 Capsules By Mouth 2 times a day. atorvastatin (Lipitor) 40 Milligram By Mouth every day. finasteride (finasteride 5 mg Tab) 1 Tablets By Mouth every day. Refills: 3. losartan (losartan 50 mg Tab) 1 Tablets By Mouth every day. PATIENT EDUCATION INFORMATION Instructions: Medication Leaflets: [facility] Insurance Correspondenceon 0 05-06-2023 Insurance Correspondence [id number]#1.00TIFF [facility] Ambulatory Visit Summaryon 1 05-18-2022 Ambulatory Visit Summary ESTRADA PFEIFFER :1945 Visit Date:03/18/2023 Ambulatory Visit Instructions Your Diagnosis Bloody stools History of colon polyps Personal history of prostate cancer Dysphagia, Dysphagia BMI 34.0-34.9,adult Your Care Team Attending Physician - Tram DOUGLASS, Zina Gallardo Primary Care Physician - Rinku Encinas III, [...] CASTRO, ANJELICA Meza Where: [facility] Yanick Normal [facility] Consent for Procedure/Surger yon 03-18-2023 Consent for Procedure/Surgery [id number]#1.00TIFF [facility] Gastroenterology Office/Clin ic Noteon 03-18-2023 Gastroenterology Office/Clinic [...] hematuria History of colon polyps Hx of correction use of blood thinners Nocturia Obesity 29-OCT-2013 [...] virus vaccine, inactivated 02/05/2022 Recorded SARS-CoV-2 (COVID-19) mRNAMUL.ORD![id number] 01/16/2022 Recorded SARS-CoV-2 (COVID-19) mRNA-1273 vaccine 03/01/2021 [...] inactivated 02/16/2017 Re (more content not included)... [facility] Comment on above: Result Comment: Elec tronically Signed By: Tram DOUGLASS, Zina Gallardo\.br\Date and Time Signed: 03/18/23 11:03 EST [place] 03-07-2023 Screens [id number]#1.00TIFF [facility] Patient Educationon 03-06-20 23 Patient Education Oncology [...] Where to find more information ? [employer]: www.cancer.org ? [employer]: www.auanet.org Contact a health care [...] flu (more content not included)... Normal [facility] Urology Office/Clinic Noteon 03-06-2023 Urology Office/Clinic Note [...] No rashes or suspicious lesions Assessment/Plan Dr. Cruz pt 1. Gross hematuria (R31.0: Gross hematuria) S/p Cysto 06/11/17 - neg FISH, atypical urothelial cells on cytol. CT AP wo con 10/11/22 [facility] - no renal or ureteral stones, no [...] upper tract imaging in the form of ureteroscopy/pyeloscopy since he has IV contrast allergy. Taking [...] Contact Information MATTHEW CASTRO, ANJELICA Meza, URL [address] [place] [address] [phone] Additional Instructions: 1 yr w/ PSA Patient Education Prostate Cancer Screening Documentation recorded by the chris Patricio accurately reflects the services(s) I performed and decisions made by me. Authenticated by Anjelica Nation PA-C on 03/06/2023 15:45:47. IAbigail, personally scribed for Anjelica Nation PA-C on 03/06/2023 15:42:47. . Problem List/Past Medical History Ongoing Bloody stools BMI 34.0-34.9,adult BPH with urinary obstruction CAD (coronary artery disease) Frequent urination Gross hematuria History of colon polyps Hx of correction use of blood thinners Nocturia Obesity 29-OCT-2013 [...] mg= 1 (more content not included)... Normal [facility] Comment on above: Result Comment: Elec tronically Signed By: ANJELICA NATION PA-C\.br\Date and Time Signed: 03/06/23 15:46 EST\.br\Electronically Co-Signed By: Abigail Patricio\.br\Date and Time Co-Signed: 03/06/23 15:43 EST CHEMISTRYOrdered By: SYSTEM SYSTEM on 03-05-2023 Prostate specific Ag [Mass/Vol] ng/mL Normal 0.1 - 3.5 ng/mL [facility] Remisol Comment on above: Interpretive Data: T he concentration of PSA determined by different manufacturers can vary due to differences in assay methods and reagent specificity. Values obtained from different assay methods cannot be used interchangeably. The methodology used for this result was chemiluminescence using [employer]'s Access Hybritech PSA reagent. Consent for Treatmenton Consent for Treatment [id number]#1.00TIFF Normal [facility] PSA Totalon 03-05-2023 Prostate specific Ag [Mass/Vol] ng/mL Normal 0.1-3.5 [facility] Comment on above: Result Comment: The concentration of PSA determined by different manufacturers can vary due to differences in assay methods and reagent specificity. Values obtained from different assay methods cannot be used interchangeably. The methodology used for this result was chemiluminescence using [employer]'s Access Hybritech PSA reagent. Performed By: #### 1 [id number] #### [facility] [address] [place] [address] UroVysion Fish and Urine Cyt o ([facility])on 02-12-2023 UVFISH & UC Diagnosis Info Invalid Interpretation Code [facility] Comment on above: Result Comment: A:Ur ine,Urine:Voided [...] correlated with cytology and cystoscopy results.* CPT 27118, 01938. Microscopic Notes - Microscopic Notes - Abnormal cells 9p21 deletions: Abnormal cells aneploid events: Total cells analyzed: Hematuria: Gross Description Site ID:A color Yellow fixative Alcohol Received 100 mls of clear yellow fluid with the patient's name and, Urine on the vial. Electronically signed by : on: 02/12/2023 11:43:23 Performed By: #### 1 [id number] #### [facility] [address] [place] [address] UroVysion Fish and Urine Cyt o ([facility])on 02-06-2023 [facility] Method of Extraction Voided Normal [facility] Comment on above: Performed By: #### 1 [id number] #### [facility] [address] [place] [address] [facility] Number of Jars 1 Invalid Interpretation Code [facility] Comment on above: Performed By: #### 1 [id number] #### [facility] [address] [place] [address] [facility] Specimen Urine Normal [facility] Comment on above: Performed By: #### 1 [id number] #### [facility] [address] [place] [address] [facility] Type of Service Technical Only Normal [facility] Comment on above: Performed By: #### 1 [id number] #### [facility] [address] [place] [address] Physician Orderon 01-30-2023 Physician Order [id number]#1.00CD:127 Normal [facility] Office Visit (Cardiology)on 12-17-2022 Follow-up visit Diagnoses/Problems [...] Weight Tips; Status:Complete - Retrospective Authorization; Done: [id number] Some eating tips that can help you lose weight.; Status:Complete - Retrospective Authorization; Done: [id number] SocHx: Never a smoker Tobacco Use Screening; Status:Complete; Done: [id number] Patient Instructions Please bring all medicines, vitamins, [...] he had venous stripping last year at [facility]. Sleep apnea on CPAP machine with compliance. Summer Deshpande MD, [facility] Surgical History Problems History of Cardiac [...] 7:37:38 AM NonMedication Seafood Shortness of breath; [place]; Recorded By: Marissa Guevara; 12/17/2022 1:49:59 PM [...] Recorded: 17Dec2022 01:33PM Heart Rate54, R Radial Djiesuae739, RUE, Sitting Bsaytbpdm63, RUE, Sitting Height5 ft 11 in Zlsiht804 lb 12.8 oz BMI Jwmcnyrryn86.84 kg/m2 BSA Calculated2.32 Tobacco Useb) No F (more content not included)... Normal AFTER-MOUSE Tobacco Screening.on 023 Fall risk assessment a) No falls within the last year [facility] HeartTextDigger juliet 250 DO Work Phone: Tobacco use status CP b) No [facility] Heart-CaptiveMotion juliet 250 DO Work Phone: Reminderson 11-26-2022 Reminders - From: Sonya Ricks To: [facility] - Reminders/Recalls; Sent: 11/19/2022 15:18:50 EDT Show up: 11/19/2022 15:19:00 EDT Subject: Ambulatory Reminder Reminder/Recall 5 year colon recall forrest roper 11/07 first recall letter Patient called. He is not credentialed with Dr. Ugalde's insurance and is requesting a call back around January. Reminder placed in system. Normal [facility] Patient Letter FTon 2022 Patient Letter [facility] (Inserted Image. Linda ble to display) November 21, 2022 ESTRADA PFEIFFER [address] [place] [address] : 1945 Dear Estrada, This is a reminder that you are due for an appointment with [facility]. Please contact our office at [phone] to schedule an appointment at your earliest convenience. Thank you, [facility] Normal [facility] UroVysion Fish and Urine Cyt o ([facility])on 10-19-2022 UVFISH & UC Diagnosis Info Invalid Interpretation Code [facility] Comment on above: Result Comment: A:Ur ine,Urine:Cystoscopy [...] correlated with cytology and cystoscopy results.* CPT 15732, 17251. Microscopic Notes - Microscopic Notes - Abnormal cells 9p21 deletions: Abnormal cells aneploid events: 16 Total cells analyzed: 157 Hematuria: Gross Description Site ID:A color Yellow fixative Alcohol Received 90 mls of clear yellow fluid with the patient's name and, Urine on the vial. Electronically signed by : on: 10/19/2022 11:11:56 Performed By: #### 1 [id number] #### [facility] [address] [place] [address] Consent for Procedure/Surger yon 10-16-2022 Consent for Procedure/Surgery [id number]#1.00CD:127 Normal [facility] Consent for Treatmenton 09-28 Consent for Treatment [id number]#1.00CD:127 Normal [facility] IntraOperative Documentson 0 10-16-2022 IntraOperative Documents [id number]#1.00CD:127 Normal [facility] Main OR Intraoperative Recor don 10-16-2022 Main OR Intraoperative Record IntraOp Document Type FTURO Summary Primary Physician: Todd CRUZ MD Finalized Date/Time: 10/16/22 09:24:11 Pt. Name: ESTRADA PFEIFFER /Sex: 1945 Male Med Rec #: [id number] Physician: Todd CRUZ MD Financial #: [id number] Pt. Type: O Room/Bed: / Admit/Disch: 10/16/22 08:36:10 - Institution: Case Times FTURO Entry 1 Patient Times In Room 10/16/22 09:11:00 Out Room 10/16/22 09:23:00 Procedure Times Start 10/16/22 09:14:00 Stop 10/16/22 09:20:00 Anesthesia Times Last Modified By: Georgia Almonte RN 10/16/22 09:23:53 Case Attendance FTURO Entry 1 Entry 2 Entry 3 Case Attendee Todd CRUZ MD LENS BLANK GAUGER, Georgia Bowles RN Role Performed Surgeon - Primary Scrub - Primary Blanker Press Operator - Primary Time In 10/16/22 09:11:00 10/16/22 09:11:00 10/16/22 09:11:00 Time Out 10/16/22 09:23:00 10/16/22 09:23:00 10/16/22 09:23:00 Procedure CYSTOSCOPY LOCAL(.) CYSTOSCOPY LOCAL(.) CYSTOSCOPY LOCAL(.) Comments Last Modified By: Georgia Almonte RN, RN, Georgia Damon RN 10/16/22 09:24:07 10/16/22 09:24:07 10/16/22 09:24:07 Surgical Procedures FTURO Entry 1 Procedure Description Procedure CYSTOSCOPY LOCAL Modifiers . Surgeon Description CYSTOSCOPY WITH FISH AND CYTOLOGY Primary Procedure Yes Primary Surgeon Todd CRUZ MD Start 10/16/22 09:14:00 Stop 10/16/22 09:20:00 [...] Signed By: Georgia Almonte RN 10/16/22 09:24 [facility] Main OR Preoperative Recordo n 10-16-2022 Main OR Preoperative Record Holding Area Document Type FTURO Summary Primary Physician: Todd CRUZ MD Finalized Date/Time: 10/16/22 09:17:01 Pt. Name: ESTRADA PFEIFFER Khang Trotter/Sex: 1945 Male Med Rec #: [id number] Physician: Todd CRUZ MD Financial #: [id number] Pt. Type: O Room/Bed: / Admit/Disch: 10/16/22 [...] Comment: left hip area Skin Integrity Intact, [place], Warm, & Dry Vitals - EU Blood Pressure 165/65 Pulse 63 bpm Respirations 20 br/min SPO2 97 % RN Reviewed Yes Last Modified By: Georgia Almonte RN 10/16/22 09:17:00 General Comments: Temp 36.8 Finalized By: Georgia Almonte RN Document Signatures Signed By: Paty Watkins LPN 10/16/22 08:49 Georgia Almonte RN 10/16/22 09:17 Normal [facility] Operative Reporton Operative Report Patient: ELVIS PFEIFFER A Age: 77 years Sex: Male : 1945 Associated Diagnoses: None Author: Todd CRUZ MD Procedure Operative Information Details: Date/ Time: [...] to his allergy to IV contrast. Normal [facility] Comment on above: Result Comment: Elec tronically Signed By: Todd CRUZ MD\.br\Date and Time Signed: 10/16/22 09:28 EDT Outpatient Surgery Discharge Instructionon 10-16-2022 Outpatient Surgery Discharge Instruction [id number]#1.00CD:127 Normal [facility] UroVysion Fish and Urine Cyt o ([facility])on 10-16-2022 [facility] Method of Extraction Cystoscopy Normal [facility] Comment on above: Performed By: #### 1 [id number] #### [facility] [address] [place] [address] [facility] Number of Jars 1 Invalid Interpretation Code [facility] Comment on above: Performed By: #### 1 [id number] #### [facility] [address] [place] [address] [facility] Specimen Cystoscopy Normal [facility] Comment on above: Performed By: #### 1 [id number] #### [facility] [address] [place] [address] [facility] Type of Service Technical Only Normal [facility] Comment on above: Performed By: #### 1 [id number] #### [facility] [address] [place] [address] CT Abdomen/Pelvis w/o Contra ston 10-13-2022 CT [...] No Oral contrast amount in ml's: 0 [facility] Consent for Treatmenton 09-27 Consent for Treatment [id number]#1.00CD:127 [facility] Pre-Certification Formon Pre-Certification Form [id number]#1.00CD:127 [facility] C Urineon 10-05-2022 Bacteria identified Cx Nom (U) Microbiology PROCEDURE: Urine Culture [R1] SOURCE: U Random BODY SITE: COLLECTED DATE/TIME: 10/03/2022 14:32 EDT RECEIVED DATE/TIME: 10/03/2022 18:11 EDT START DATE/TIME: 10/03/2022 18:11 EDT FREE TEXT SOURCE: ANJELICA NATION PA-C, PA-C, JENNIFER E FINAL REPORTS Final Report [] Verified Date/Time: 10/05/2022 11:31 EDT No growth at 2 days. Performing Locations R1: This test was performed at: [facility], [address] [place] [address], [facility] , , [facility] Comment on above: Performed By: #### 2 [id number] ####[place] [address] [place] [address] Patient Educationon 10-04-19 23 Patient Education Urology [...] these instructions at home: Medicines ? Take hasl-gql-gcxjtjt and prescription medicines only as told by [...] the blood stops without treatment. ? Take mhvs-mxp-fhwhxhi and prescription medicines only as told by your health care provider. ? Drink enough fluid to keep your urine pale yellow. This information is not intended to replace advice given to you by your health care provider. Make sure you discuss any questions you have with your health care provider. Document Revised: 12/14/2020 Document Reviewed: 12/14/2020 [employer] Patient Education ? 2022 [employer]. [facility] Pre-Certification Formon Pre-Certification Form [id number]#1.00CD:127 [facility] Pre-Certification Form [id number]#1.00CD:127 [facility] Provider Letteron 10-03-2022 Provider Letter (Inserted Image. Linda ble to display) Rinku Encinas III [address] [place] [id number] Re: ESTRADA PFEIFFER Date of : [address] Huang BUCHANAN DO, Rinku PFEIFFERESTRADA was evaluated at [facility] 10/03/2022 As this patient has been stable [...] refer them back. Thanks! Provider Signature: Anjelica Nation PA-C Physician Help Desk Operator [facility] [address] [place] [place] [address] Normal [facility] Comment on above: Other Comment: ENTER ED [...] Local anesthesia. Prophy abx sent to [facility]. -Will send urine for cx and call if +. Abx should be sent to [facility]. -Schedule CT AP wo (iodine allergy) con. [...] Contact Information MATTHEW CASTRO, ANJELICA Meza, URL [address] [place] [address] Additional Instructions: schedule cysto, CT scan Patient Education Hematuria, Adult Documentation recorded by the scribe Nilda Gallagher accurately reflects the services(s) I performed and decisions made by me. Authenticated by Anjelica Nation PA-C on 10/03/2022 14:44:59. I, Nilda Gallagher, personally scribed for NAVARRO Neal on 10/03/2022 14:28:02. . 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 Normal [facility] Comment on above: Result Comment: Elec tronically Signed By: ANJELICA NATION PA-C\.br\Date and Time Signed: 10/03/22 14:45 EDT\.br\Electronically Co-Signed By: Nilda Gallagher\.br\Date and Time Co-Signed: 10/03/22 14:28 EDT Coding Summary.on 08-31-2022 Coding Summary. CD:[id number] Ww+PGhlY WQ+BL0ICAXoX75dtTFgpD9cC8KFG JsAWrmuYMQKLQbKVfZtafUoAZ8nw XNjZXJu IC8+JZ1lIULsXojdhSHue3D7mND0 R63clw4bWHvgbAF1AMPjIlNrhewe h5ppkKu0VSsaIfkiNgPu VHDnpF61TDZ9aK91Ki12zIFwxOWv a6ewdWr5DeEcIVAjBJR1zQkrJNuj n5WoDDRmB81vqFZkv1V5 HEItmLfueLJeOkZgrSJ8eO6rMDtd xljfy3acxdqiMov2ec34zIYky9X8 xDY4P8QuqkH5ODIptANv CvvfpDLUxQ2cwsbnz1mcnfgkBaEk FNZcBPc8CLd3QXUbxMzdVxGbUZ18 CEB2KSVtnsLiK4IqZSEb fWpjXqE2p6R0Wp5GH0PBRmyzR4SJ TUFSWTwvdGQ+AH98eb63A0UoYnpq Ysv0AQIwIGZ4qZQ8uP5k PWCkMWotd1V1vLG4Z2YgsqWlyb6q r0jqTVNtVEtzJ30xhWYbh5M4ZGLm tAB6NPLgkDdiAaYhdT17 Oyc+RMNduEwfq4XyCsvow2zjo6vy aKp5GgjlDYMkuyEegHhfDBR1a8Gi Ih0fLGVmzGS8bFY1nN7i RvBiOfL8FTggB366LsSucHTdPxbe N65qL7CxyOS+FLDiJbi2ZBOpdDyf BN2lB7SmPZMijwazvMLp gUtsRI4wTEJimxcdHDVaiC9fRHTd D3i3XfTcMfJ0TJuuM3GiGDHepace Oh07tV9dAvEwAxF3MGrz Z0HqgqO5SBValSFrTRrdLQA9X85e k6F4GAJjSZGxMQM5pUE6jV1wsYpi bjogbGVmdDsgdmVydGlj RUkpHIkfV420PZGnjRosJrNmUEwt ZyBEYXRlOiAgMDUvMDUvMjAyMzwv dGQ+GHBqKKI8pYcuGMUx kHPuSNugZa0xkAaohFawKH1zMXBc psyhZAOhlT0kYJUtgGOoqAfvVD2c VXLoyinhu631OoHkRLJ8 BHBqoHOoX2HnrC4uYqFzSUWzXUEc A7QlxVBfLXvrI628HMjmCuG2WUZp wgHjZ4QpRGBjhPrvRxU0 l5F8Ih1Zs5JezqwpK0SzkASaHaYd AebhUHq2O5KoLpozyDJ+JZ78DFWr CP61CVx9AYG1iAkqQXro IHFmK6OsdS2aHrUyFNEpDAHpYmu+ PHRhYmxlIHdpZHRoPScxMDAlJyBz tLudHG3fCn2sNMTgISRi dEfgfWOaWcRlt1jsMBRfJLxiIF9h zIuxC4JmnMC0WLTkc4c2Jc17T28u L6JfvKA+CBPoxSZ4iRE9 qS7xOkNrBzK0HMkzL815VnZbwZEl Uieaq7jac0cdtVr0DsB4HFUdynEz dQgdINY5p8DjSt28C49t IBivKIBuMJHgUNNdUDUomZedth9e xM7pDa8+ZOHfuWS2qBZ2iE9gGvDq KiI1RJrtP877WhNtoYNh Elust5sid8mgzKe8BnQpQICnjpBy wLtdGUH5p6TnAe13D3QypAewe3Ks Bhk3qr69uHFqt7Z8oXL4 H4BpKCTcybgioWRzlEeyUX3tJROi ipjuVLAsfO1tOVVcL8y0ZhYyVkK7 MKpgQ6GdfjL2QKFboGVe TMNwvVMEcR6xoannu1vettcrUoAr MEAlDCl1UOy1YAXeiCcnUrIwEET4 OzE9PRR0yEQxwJ5bqPnm teqqeH5jJyh+JOR0hCVlfECPIF7j OjwvdGQ+GNFzTMR6pOjfRVvvNVDk hR0eTYNqJ8c4GcDbXlC1 DSgiQ7JhzdW4UWDemJMbVAEntTWX rB7ubsykj9atqgjiTeMjAYDjBBo3 BTm8PZDpiHywKxBaDJV7 FxB1THK5aZMonK2zeYqwmlwxiX2r Oyc+SqqqqKlpLJU3NWt0W7SnAnd6 DWCkcNsyOY8mvYPsBCrt Jf5utShwtBhhKF0sILPervbwf348 AvKep8wcCYSnvVYkRDmsRGN5P96m v4Z1QNMnXKNaNIA6nMM5 aR3hrAaghimouWXyaNiybuUonFzc TVdyCQueQ287UDCmtZmyTxDlVCw7 Q1IuTdz9OBTxjAqaDE3v gVInKZynXu8bgBhqjHdaGF3wKVGh qdpca895GmGfb1reNIRkvAObRHcp LVF6Y15ir5Q3OPErWIYf QRR1uIJ7wI9mjKoltqzitQHfwCxi lvKpmNrnBYnuKTvhN685VTQlyPkc YuCqcPv2R2FxIhl7WWRh eKkyKA0jrZGcMTqxNd8moGbmgUcl XV8rYRBnvbysd057UnXpz5beVHCj oJSqBSiwVJS9P90dm3N8 TJAcRBMrTPC1sRK8uJ0mtZdccppa nIKccFjoklNxyRgiDUbjCXoeJ798 IHRvcDsnPlBhdGllbnQg PPvsNKw4C9SnYqvyfPM+NI92NYMe XE28hVFcuCCme2ztiVu3JuNfAVJx CGY7bZfpAMvdh9EfCJHs M50xcPMgl0U5PPJhwDrthRBjGcNm qRQ0eE1bLLrxxtsed2lfmnlnZrxu t1vsgh95yV61E61yZQul DLBnIRUiDRXhQQZbyWepcr1hhX7n Ii8+LEAnuTW4hXK0hO4aMXEkLdH3 FJtcG315VdTeqBFyHadf t2qwy3zudNa5HgH5NMQejoGetFbt PBX1v6ToOt63R85uPWxaUFWoCSLq MTIvEKCoqMlxvb2baS3s Ii8+LCJssYX4dHQ7xS0rJqUqFoG1 XIfvJ900PvFefUFnLzrmP62wH7Ef dXA+JNDfHmb3WNHjcTau GM3awWPwYQskMs0aLGP6ItAaSsXc SXfiY0HwYMHbqhagylxdyIE1SQOw DVTxuP13Yv0lsBruNJRb pCSCiL5lynlag6fcexyhVyJjAAGd VRg1GKu2FQYqoFmqYmRoRUH8SnR3 UHE5bEAkuZ9biHihmsby wI0lM2KjHOFmgwfnSk12lA8fUwPo GpQ6IUqgNzf+O1EDBUtqYWOKP29H HsSRWL60JU84tSQla1Y9 hJM5V1LaMYKqjvywzhagaNE6IIUn LMHksG09bTRhHKbwSo7ju5B3n131 ZEWiPWOulJ58Pb6geNte FYTnxASNxN9urqzpq6ctvnghAjMk DWEyXUt2UPu9IYDefHgtQpAtASW1 KtF7HPH3sGUrmM2mvNdx stfnqC2fLgd+GIIwNXLzBXe1Rarr dGQ+MALyMFH4lKbwHJfwWPVmhI3a WRAgZ6w0CvUeTnF8TEyr K4SoQQMirgtfJp99lT9aFdZsYpG2 XHjkD5RjbpA6OBJckPAiMPioCJZ7 E71zp6R1GWZjFZLmUYX6 nKS7qP2ecFpudbuwtVCgyHyfnmFa dSorUZapACwzQ786PARngSiaUtl2 VLzyEOLhWJ64UR40wEDv q0C2sDL1J2SdAECyzxlkcpenkKZ4 IDZnTUNifB20lJAaEKqiAr7be2Q4 q615WVWoRNVpwF08Lw7g rYhdHLQvwIAKwH3wdnpup9oalfrr SnSvSRTlTZs5DOv9OBImqRsvLvQr NKI1AhB7VZV2nROkbS6w uJdrijoyxG6xOpx+TWFsZTwvdGQ+ ENBdPMU0lGcpLRluXIHaqW0pQPUx T2v5RuZjEzD6MRphW1Zi KUBpbpkeMy83cK8vPgUhCpC1EUxf V6EascM1XUFeeWTeDCquBPB3Z56w m4S6TLVoFPYlPRY5hGD3 yF8pnGlecitfgQAeuOsmhvEneEdi QUrdKFafZ737AYAvlFmxXgVxOSNx JP8kcJcarVR+HP74qi07 L3RoAxjlSjn0LLQxINH0oLT4kW9y ENDqCUfnc9B6fYI1Z4YrxgNsyd5d i1riYRCzBRtjA74wuPIx a3L5QYNqfVI2AXLhsVxiQwAimZ42 Oyc+IVTdhSogl1RvTeaqs2rbh1op zPz9BvPvDXYjulUnyFra DID3v9CpEu11I97cRJgkXYJkOMOn LCXrOSQkyWopvb5apO8gQx1+PGNv lUZ4zBA7sB7jIfQaTjI7 FVvpZ067HaDbxAGbUmili1coo6yf fNr9IrNbZBIxhmTofZscSNJ3o2Vi Mi40T1XwwCmvg2YlTsi9 bb25xJAia2K7rOW3N6PaXFXlsvky lFSvxYhoQW4bVEIyocfiZWUyxQ5h ZKUkV1r2ZyHnXiM3GYhj Q8QldnY9OVUpqPVfBCGjaYEElE1a nizvi0osvpoyWkZeXRCcSNt3VRk1 PYClxPxdOvClRNA2NrQ8 TSP1uJFsjB1ynVlawrjsxB3eEuq+ VHq9s7wwuQKjLD8koMX5RS01GS20 dPYbg0F8tJV5S0FeERQb lkejvzrcyKL0HWVhRSBopJ60Sv3a cKlqLv1oUBJdKAR3JDMkpXVeF4Jv xO6yUeTdVQCdKHWvO8Co dTXdGMshI183QPwxVbZ8MTXrasJa A4AcDBOruWdoUtR3q3Y9Fx5MYW20 YV34SC05hUHzb3R4eLE0 L6NzPBWbgwidfavxoNT8XTVwBOQp jR42Rh0fmNbxMi7pYCRwZEK8JIZu iHFpG5EzhJ6oFvQkBDAq OUQbT4MtfTZdOMgcP584ECgpWmO9 CZXbnqUdE1NkIJXwxHhzIoZ7d1W4 Mb6EYm48MS17VJ01wEDt g2U1tPO0E7ZzMEAnvuhyogtfmXM9 DYLpQJZwxB32Yb7fxPnnDn0hGCFt CUC1MWUgqNHeP4FmkA2b AbNxDTDoKRJyN5WbfSGlKVckA652 ZKezOeW5REKplqCeK5ZdAWUodXuv MjL7d1O6Pp1WDYlinld9 U2NrVclfcGN+VQ90CTOcSU22vIZd xKMvb9jhpGk2LkImXPUiFFO6hNld SUtdf9DuBRMuC71yoORg a1L2TFEz (more content not included)... Normal [facility] Coding Summary. CD:[id number] Ww+PGhlY WQ+ED7ZWVDlM15fsTMnyE4FZ7pHM Y2QXZQOUMCGKO5ZCP3ypSW6QMpyC 2VybiAv YpnesKJmAZ16KNo7CNG4nBjdNYcr eH6cwLIpE3j1KbQqBF19aA37DCxr REXxEcH3MdDsyeyouWIg V6bpMqApjMJkZtk+PHRhYmxlIHdp QUGjTYdeOAFdKkVbjAqtCW2dEn0x ZGVyLWNvbGxhcHNlOiBj z7lmZSPlZRajGA8kqRfoV8EefTT2 PSYyb3i3Rc54xBL+CVNrJSY4cGpm FXtiz319NhZfw6klTUD7 qWFcKQmkXOY2O14ls0K2HHYlCASr SDL2fIW5fS2rvUeibxyhO7RrdKGa ZsN0VFA3wXDcuG6bvQwa uwbilE5pRwh+P50QUQ1XTEEKSA1J Dao7L2ZyLijulLL+LW19IQSsVE34 cDJkjANgm5qhbKe6StCv HOVfFRU0jOnwIGfus6JxEFUpF40o vPHyr1V1RTWjjEeluGSrVvWfiOJ3 iM1sTCqqvvewe5vktras Ngdph9rfyp34dW77T14gDHpaFWNq UNY5OLTpAAEfuJmyrx1voJ6eBz1+ UUppp7rqe1hizJd3NuSv DLWrxlAdhQruUDH4n9GmPw30C9Wa hYbbs6VhKql9aw43iVAzn0W3yQZ3 DPehSVHgoP7rTDyrMcI8 YPQyYwVfsW19rEPgWHlxSi5joKjm lPoyYS9sVZJpnygxKALncF4dRNFj iOUlhBbcCK9hXUUfjdcv x197CbOvBZV6RQDxqSAeL1HcmI0n IpBkYGQvJCXmE6QpzTSwVGhvT186 JQjiVdV2DZAtbgUlJ6Ff YCNniUctBnK8k5V2Ry0Jg0Aryuok PXR6CCggWASpDgGsXdDrToM2V6Yb Kvk1AQRznVkxTE2wF9Yh XQDxytpcnnlszEY1HZCeLGHeqY80 nNJiMEuwSe1vy8D0j052KHDsSETu nU39Up8onItxHNFewXPM eT4yyfkhx3iomjudLkEfSFPiQUc2 JDy9CFSzmNwfZySoGIU3UxY3PLU5 cIPxiD8dlUpmwqvrjL0m Oyc+A09soB3xERW6HSN7htirPJIs dfIiBP51JA24R5DcGfxtyPIluOI+ HKYrhkJmaPwfBY3wIvQi k6ckq6OqNBsbM0QmMECeHHoyFer3 DTTcSPA8vLT5dI0uOKIxLSncq3E0 tLF7G3FbfrDluy4ar4qq QAZeSRimB37xzAHqp6O6HYSbdUK9 EKRwkRghCsChtF12Esd+PGNvbGdy v5CoSkhut0xda8mljHk3 OmEcMVUrjxKakFzdXAK2n5TkOa82 H53dJXxjFBOtUOCyBDXrBQHjsNua ci3iyB4mYb4+PGNvbCB3 hBJ3fF5gZDQuMdC6IQerG074CgUs lDPfCmedn4ykz8qapIf0OpIqXLWn ntTnwEdjFNL8b5GiJk60 C01sIQkvHMJwGVGhYHRoMYHgkJil du5ytJ3bEm9+FM0ur9pxbm42gV87 dHI+AQIdWOD4mOfsJMvh JGLbpN6fTTngRbM2IDFhVgPeeJ42 bQKmLDfzMz9eoAkmyJycXP3rSXLb hnjag772SqDuf1aiWUBi yMIqIPifLOJ5V19it3X9RVIrOUQz EJE2yLT7wN2gqAphizyveBEwbVka dzGgiSoyNTyvXZjjT012 IHRvcDsnPlBhdGllbnQgTmFtZTo8 A2UkKgp9NMGtpLkjSG8wvYYaRDkk Fs1ooVhtdVfpAX1mARRz jsspc460LoVvd5jyBHHrvBOvIVml ZDK5H91wt7Q3EICkDUCyOFG9qMY4 sH4tuAoojtctnSZfbOxp ejQhzJfvGWmeEZuoF212BSXwyCag RvSuqdEdCAPerPV2ST41WV02lEGw m8G5zUR8Y3DsIPSxzima kwngxQC9HLMeSQRalC44Bw8lxUhn Mf7kAWZaZEV1MPWduJQiP0ErjL0o IsIxHZNwVREwY1IvcHWw QSifW642BTcuFeP6KXNsjqUsI6Be IWUkmFnjRiK7p1J9Sy1WY3T7SX57 JV95eYFvz0H2jOJ8B9Dj TWDocnkzoubttAL1NOYjULRbvJ55 Lk3jlUmvCn6pWWPeZDF0ZYKdgRDd O7FxlC7zNxWiRIAiWHAl N8AbmIHhHHtqR101ZPkhIwG8LDGh tpZbV9CqHERneEjmWnB9n1P7Ex5T OPn9CV65QV67pSZdn2W3 aBK5R7NiWAYkoehkommwuJJ5HRCj YLHtkE13Ht1wtVpzMz4eJDRtNRF6 LVAgsIDeQ0OnfI2jPdIr OYAhGMHxP5CigKVcBUhsV300UCeg ScP8RKAtpcLrV3QgFMGovNfyYrD9 b9L8Ba2YQVBcQY29ILL8 tXO9RA94UU90A6QkPqwwvLVvjAD+ PHRhYmxlIHdpZHRoPScxMDAlJyBz gFyiTM6kMb9lASPnUWDy aGzlhPSxWaYkn0ipBBFmPWxcAD0y qFnoU5JigNA8LNGly1t5Pb55Z31b Y9StgCG+FEHsePV8eIV6 hV2mCdDcNyU1NAtiM168CuNodURo Vksri8uny5binZk5BdU6JHXqydOi yXetMCR5a5LoAh29N85o OJiqDPIqGREjFIPtQBKleGfqxn9d yJ6nNm2+LAGngED6qEO0qU4kOmQa AnH5RMlgS592SnCktSYq Agnvj9tqe7jfjDc8AkUcSVWqxiHw dMzjYJA4u3QeXa23L2HbyNuwt2Lj Fuc7kt35tMHdn5P0wJY1 M5BzTWJappvgfCQktLshFF8cFFCe elmgZWDkjZ6vXISjL3m0HeGyKtH3 FCgaB0LiouH8EMBkpITu TQoaKII8O39cy7B8CSSdXPTwRBO0 iGI6yV6zjEsfxuafoOWfhHfbfaTk qAcxXSygIKhyZ951EHDn wHgaMYGjcB0tFHEywMZgtBglGS2x RXZglvokTjmNWGqIFXQCAV5FVOUp QTwvdGQ+JXBvWXG1sKaa XUueXBZwqU7dWUHnR4n3JvAzMzL5 ZKgeH2UgTOUxswfkVp83qX5eNiBq KsP8IOsjY9EnxqU6IVNr uDNwVHreYBE7G20fo6E7ZQClKAAu XTI8eFT7vG8waJnztkpwnNOxvNmu fvVoxIggCRfbEWjvD934 OTFxvLwhFoViXdOjHfW2LEm4U8Io Ynf9NRRriOneNB7qnONgAGwfOr1j lXfogCdrDS2yDTDwfzvv CUReyV7mKAVicJTgbKefWI6eZRTs niksq444SqLsSRK5CQZyoALmU0Ft qX6cNkLzMIYoKGKtE7Te sONgLLbjI796HNwzEqJ7VJOotbQe M8BaJUVehAraGwU0m8H0Tf00AnCV ZWFyczwvdGQ+PHRkIHN0 gMyyPLxsCCFnkC2xNUAmR0s1OqIe SoV4ZJwuB2GfTSQwekwmIq21rJ8j QnUgZgR4GYmoS5JbojI7 NZPyaMMfPFrmNHR1C25nr0C0IHIz ANAeBGV6lAY9oX2otMcgyrxkkAZq dDsgdmVydGljYWwtYWxp B811VEGkuUbiTg6avEX4T0JfIvd0 RDKbtAyvKR4seMXdBKalOa7ffDqz uOcbRP3hOVOoaudcPTPd eP0cRZVttXKutWshRL5nOWRcgmim f453YuBcWOM6ZVRzdBEbJ8ZdnH8i RqJrRBFuSHRnM4FgnQTv XCcyJ975ODslMxU4MUFfqhUdL5Rv JFAmzCjfQrM5t3H4Xm9WbBWtY1Wk X9c5Y4IvAjslsTF+PC90 YPJxJO44qPQcfNFae8qxgCf3JeRm YSWiKDQ4sIwaEKxhd1MdMICyN15y gCXpm6R2BYQtcXgmpBQr LfYhiGE2tM9uEJnwvsmjz0zggrtj Qmjmq0wbkb12bS05R18vPYuqDDEl ZQTcKMGhKOVxfSesxl4m lL7jLs6+WWYalWN5fLK5cO2oVxYb FpK4ZBkyJ936FeErdBWbXnvfi1rl d2ntxXj0MbKnMXUiqzMe aUcaTVD8p2NyNd28C92sVMjmBGEw GANrLKUhRYLpcCfqdc2myN8fQz3+ OT8uy0xiqi21jU70iYG+ EUYeOOA3qAybOSnzVFZasV8wPHot NbL2UDKaJdNxhH65cXQqONcmFr6j hLvxbJqrZE3mQWLxurgq q413EmThi9emCMUnhDMiPXdyVFP5 L77no8L6HBUhCZHwHPF9sYX5lP7e bGlnbjogbGVmdDsgdmVy nCanANouULggM247HNGppJkpXcLj mVUvP6shucOIXU8oPlyceZB+PHRk VQB9hOddALdiKZJvoU7e IMVwJ7j0JrIcRsM6ETutB6GhsoJ3 OWTjhFCaLXWxpIUWqB2oqejmr0dr smdhIvNxBABrCJu4HCg7 GQLupFfeEcWzYHN1XpC2VGZ3wHKh iZ6siSbmrkkakQ5eOsf+RklOOjwv dGQ+IBAdBKC2dOssFEeg UDTdlZ8lCULuW5y9SwCjTuY1JBqg E2CgdjQ1UOPawGYvNWJiuMPCsU6e kykdk2heogauTiIzTJNd VWb9JOv0SSOgcVbqWmDpKUA6VaE5 FTH9wQOkzS2hjTtbxclzrH2lSyr+ TVJOOjwvdGQ+PHRkIHN0 mAzxWAsyAGKnrN8bLCSwZ7v9YtIf JwB4UZxfC0SqizE5WENlbYHoNWRs qAUWlH6byojjs5hbpaaf BrYcFVNwCGr6CMf7WYWuqOsiCgIr CLR2QsJ3VPO9sKUuiT5krIsnsqqm pQ5lFii+LMD6QZH7BE11 NP59M7OuJveqiEOmaAN+PHRhYmxl LJjpBNYuVPacLCSiViEkuRenMM0h Zr0yQFHvASCmbUfmrAPz OqMie3nq (more content not included)... Normal [facility] Coding Summary.on 07-10-2022 Coding Summary. CD:[id number] Gh0bWw+P GhlYWQ+TX3MLZThB85fvCRqqX7mU 0NMTElOSywgQVBQTElOSyIgbmFtZ N0xsANoJEEn IC8+JA5dFWJxAmshxJLzz7I7uSA1 S62qkt0vSObscBL0NSLvBaGsycdz y7yznPp9DAegNpvoBbHt MJAcjW60ECO1dT13Un64wIXfoVTw o5bamJp5UeEdTPXcMYI0dUneOFja e9ZiWNFtF49npXIwk2E5 WUCddNgkjCHfTdRmzYW6dM9iHMcs uquro6kcekvqTxi5rd04kHHhd9G5 aMM9O1DosxS3PVJioVFw RcmojWAWeS6thkbxp9ogcktfFsEl CMMyTEo1KFg3ZZMxxKvsWhGlYF73 NHP9MSZjvqQbP7PnVCFq tQbwIkG9z3X9If9QX0HCNkvbP5KP TUFSWTwvdGQ+NA22rx60P5SuVrrj Ywe6POSwVZF7qTZ8kZ3e CFKaFVvjd1H3qAY5U0PonlBlst5s d3lpSMXbEZjjS88edJPeo2P8YEUq eTO1UQXvbLdaAuMhtO53 Oyc+RWOomHftv7VbAvmsq8wst6an sAp4KixlEIRvrcTyuRgdGTU7k2Nn Ur2lODDqyPZ3qPA7aV3l XdPfNkS8PGuvC130BsMscNBmQpno W34mG5DiwZI+WCAvPlp8NLIevWmo AP6hZ0YcOKFrpxjpqJKe vBxuLO4eLPJaalbeBAMrhV0pVQUj Y6e9KqCyEpE3UGuqK2EaNEUcfuhz Xl43hO6dEzSuAeO4INdz H5MyoqV5GIBonLApLLxmIGS1J59z q3A1PMViZUMjQKE2gHT2fL2cqPnj bjogbGVmdDsgdmVydGlj UIkvQLjeF565BQMkyHzrQfXeHKgq ZyBEYXRlOiAgMDMvMTQvMjAyMzwv dGQ+EZSqVOT3qCipJTBc fGErVWftHt7ipWzkvSldFX0rXGDh wryiNCMrrF5qVSSdpBRwdLoeTM3n PEXnrzgbr520KtKxKJD7 FRRgaZOxO2TxoJ7xCrZdJNCaKVBb M5RotKAdHUbrQ561ZJpgIcT1IHMr xoSzW2BqAVUdiWxkBdD9 a5M9Ua6Nd0BiuaqbY2KehKYaAoIm UlalNWp5F3ByBjzmcJS+II42ENZv BW69ZWk4PCA0eTpwLCnt UGVnR3PjrC9wYiBjAJHjWCToCpw+ PHRhYmxlIHdpZHRoPScxMDAlJyBz qHmdPN0jYz3dPPTvHCLq zJdfsATtMvFpm0qdJWRmXSzeCY8i qFpaJ6XzlTD5UFBax0v5Wl88O13g E5FivOQ+BGJexQJ6eJU1 rS4jCvRnGtD6CFciH709IlQjtWDd Mpzbs0kec5bkrPc7TrC6LNDfzxTk xNonQRD6i3GsBl52H26k RMwiYLJfWARtEZOeAABynYyahw2z iC2aYb3+UMXnwHK7jCU6hI1lAcMu DlD9PShuM008AgBugWAp Gbmad3yar7nujZs2EpDaWNHsmxYc rNbeWBF7y1FdVg86H4EhlVdfm5Rj Yel4ld46sMGph5U2vRJ1 M2MoPZRmrvmrfSVioErfER2uNTMr todzRBNkrV7eUSMhM9l6PyYhNsI9 QAsdM2RwdeH3RHEqbQBj ZXTrfRGKiJ3maumae3zbugtpUmDq TTUeZSu5ELc6IYDaiGtnOhPiSCW4 DvV3WCA7yLFgtI8cmEwu ydidjC1gAhk+EES6eFTbfSTDKN6l OjwvdGQ+OZUzBOM1sEbjAFnwUQXt bO3jSCTxM1a0MmIlPgO5 NJdzE9IbdnE2RMCtkHVnGMFzpIPB yN9nrtjyf8ejxhptDaXwGESeRJv6 LIw5EBSjaPpmBzZyYWH4 ApD0IZC6rGTyeR8ryYeqksclzC6q Oyc+IjrlcPyiUAU0GUw5V1FzKor8 IVKpiPqwBE4qlXSiYIyh Gs0dcOymeGuwEG0yJOKcseesb133 JyTua5pcBZEgdEKgBBmyESG2M47s k7F2SKMuVXZsFJA4bDR3 aT7aoDehilgubWEnbHlpzyWgqKme OXjqLBmuA402ADIcbTlcDaYkKLv7 W0WpLuz5VSSjtXteJI5e fRMxYPnaSe9gbZscjFmkHI1cDLBd qdzkf247FmPtk4mrPHWsbSVqECom XEP4S39pm7X9BZVlZTVl WCY1fQW0pS2pdManuyodcRTrzMbu yhFjqVqoLJjsCZisZ523FOSokMrt QgLsaPi4G5EpCle7LURv sVasHU6pqTGyAKbkRe8dcSgheEav RP5bNWZymxhxt478IhRmd1ihSJWl iORuZEilMCF6H85cj7L2 GYNxMKFhESN7tJJ2oO4dyPjbyttb bQFayQgqusYbhJgzVXpbZZslX438 IHRvcDsnPlBhdGllbnQg HNkiZTg6G2EpSiliiEX+SM70HOSc XM75uXQeoCYhw9wjxCa4GrXbMCJq LEC4nLadFTmyr7TzSESd N44lpSBqi3P9YKXxrHxrjWEqJgHi dRH9aE2iSOhuklztw8cnoieiFheo z6efda45lJ72Q59tNTne HGIjBJIfCTUvUWCwdYrzvn8mkQ2h Ii8+FAVloKO7fQV4oF5oTSXxLaX2 YQjzC620MvTtaRLaYafj s4pdf8onvYz9EuW4GJAuisGgsTyi RWU2g7LmRd09I38jTNtgXYVvUWFa DUIhGTByeJrjqv9gmP1b Ii8+MPXxtHE4bTO5jI1zQrPjLvH8 WEhjJ759RyVmoMEaKrwkB83hL7No dXA+YGJnBbi0YOYdjDqq FJ3ztSYoPJdcWj6aOML4EaJxHqEj KAdxL1BiVDPcxcdgelhipYU9MKXq WMBmxL82Sw8woIciITWe kSGBaJ6jsqetl4jbxqseIqXbQDLm TQf5KJb6MTXukRozUsXqIUH4XnJ8 FEK2cXQllV5bvWchtpst kK9nL7DpNJYqvadeAo59lQ9uLnSl YnM1OZweUes+J6TIMJfeYNILF30J AjZMYQ83TZ20oVHkq4X5 vCB6N9YxWFZeuxnensdjyEY0AOMh IHXbxT97jMPaZQtkAl6jc9J3z420 GNHyKLBksD79Wv8spYky RSFigVUArG7gpopsq7pwazukKdDc NJItSPq2ICe8TKVlwDtrKeKcJLZ2 CzQ9QTA7lONokT5fyXgc mbuxiN8aIdb+QBCvJDTjFNt4Olzx dGQ+EEHnPEB2vJglUVrjMXGvwR6s OQGfB4n1KfHgFbQ3LDqe V8MnLPPsdnsdEt07qD9tSkEbHcP7 OJmkC2ZprhO6WWRsxQNyEHhoXFA4 W42wk2I6DAQpKDSxQFK5 cTN5eG0uaVvlgudynSXuoQxwyhAy mSvhNBzkDRfnW320ZTGorFpaBup8 MTveBHKpZY63GR18vJQl x6C4jPK2C6LbCWRfohrjeklsrFY9 EEQdFCHpnO26rLKoRXghKn2em5N1 m278KBVkWPFixE82At4m mFqqAHEvqWZJjU8nhidje0ynlolf ZeSgJPZsHZk5ZMn6IHThqOxxRcSe TML8IfF7BJU7nAXewO6i oNduqptqvR2bTtv+TWFsZTwvdGQ+ KVPyEFX7rXhwJCmmMAMqmY9jGQWq R4u7GaKoUsM7WAhpW9Zk OVCpuuojHh95yA6fGhQbHiQ8BPde L2TjhvF2OTOdePSzIJteBUB2M88e p6Y5EDSrTDRmYGF9fWX9 xR2puSawgknjnTFytFqwpyPjmMlb WWedWZclN308OWBvmNjnHv64dYFz nYzymyS7V8RgVchkaNZ+ YH40SJWvJR74uWTnfVUrp0qmaOc7 GyTrRQKrWJT9nDbbMTcgz3IgHRKg I37ufKEmi0X7FCGrqIqb eJTkEzTgsQD5pB7fYLsrnzvrh0rl rrvzEaiwd2cngl67sM23D68xTZfu ZHRoPSIzMCUiIHZhbGln ee0nnH8dCe9+LYQoxTL2mLE3lQ4u PoNqYmN5JIcaF571DnXhsBAqUinl h5hsz2vdpIn6AcFkRCNi tjSqdBjuPNE9i2KrGb03M38vOHkd RDEvRDIpWCAwTHWpkNanex3lzH4k Ii8+HL6tt9zabp00tE94 dHI+BUQnCWM4nVcrDTsqWHLdrP1r WOtgCoT8KBZfKzFedM16iYZoYRnk Kv9ukFrjsUgvBK8fCFHv iwnxt086EoZgr7zfOIWhbXVjLXhv VNE8H94ip6A2CVKzTEOpZSO0xBJ6 fE8yzOmbreyfoNFwySmw plUbaWupQWobYVjkB028MFJefKwj HeObqWRqG6ksgoISYQ6jOfdryTB+ DTTvKHV1dOwkBRttHFBr xR7zHHLoI8h4NzSiCpC6HNrvJ6Az geZ6ZBIrxRYjRFUklNSAyO3lqwwo l6qxuuinQjViWNYpVAu3 QJd5VRWpvDxsQhSnTAO0PwM0TPP9 gBAguH1qyNqvccpebZ0aVxz+RklO OjwvdGQ+LTZuQCB7yGbi TWfyIRCfpL0ePBNfS3k1KaScYqF0 XDvoF5LbqhX3XZNlbRQxWQGawWTK vE9wucyqk4ergvohAhMm NVIxZFg0HVf0HEVbnMxnCiMgBWV9 ZiK2NGF8vKIjwA8nmVlqdsocmJ6s Oyc+TVJOOjwvdGQ+PHRk TVC7fZltHVopOHSrfN9rLIUoX2b2 AaOiVzX3ISlvE8YiakL7BGOwkIRo RIRtdEYJnW0ufemyd0ow wndpBxFdDZWyFXp9HTa8NDNdeHek MwJkWKB5WlN0MXQ0vDQlsF6nyYwq cxmnyS6eSur+AZV2IRJ0 KJ54GX95O7ZeOkwxpFFrcSP+PHRh YmxlIHdpZHRoPScxMDAlJyBzdHls GJ5iDn2sFSKfLDLrsFwu cHNl (more content not included)... Normal [facility] MRI Shoulder w/o Contrast Jessica paige 07-03-2022 [...] Fluid extending into the subacromial subdeltoid bursa. Jbxa-nj-ohzx contact of Report the humeral head with the acromion consistent with rotator cuff arthropathy. Ordering Provider: Tulio Vaughan FINAL REPORT Dictated: 07/03/2022 1:09 pm Julio Arcos MD Signed (Electronic Signature): 07/03/2022 1:09 pm Signed by: Julio Arcos MD Transcribed by: KALYANI Technologist: BRODY Technical Comments None [facility] Consent for Treatmenton Consent for Treatment [id number]#[id number]:127 [facility] RAD - MRI Screening Formon 0 07-02-2022 RAD - MRI Screening Form [id number]#1.00CD:127 [facility] Physician Orderon 06-29-2022 Physician Order [id number]#1.00CD:127 [facility] Pre-Certification Formon Pre-Certification Form [id number]#1.00CD:127 [facility] Discharge Instructionson Discharge Instructions [id number]#1.00CD:127 [facility] ED Clinical Summaryon 2022 ED Clinical Summary (Inserted Image. Linda ble to display) [place] [id number] ED Clinical Summary Person Information Name: ESTRADA PFEIFFER [facility] Age: 77 Years : 1945 Sex: Male Language: Ukrainian PCP: Rinku Encinas III, DO Marital Status: Phone: [phone] Visit Id: Visit Reason: Shoulder injury - [...] 06/24/2022 23:50:53 06/24/2022 23:50:53 06/24/2022 23:50:53 ADDRESS: [address] [id number] PHYS DOC NOTES: MEDICAL INFORMATION: Prescriptions Given: [...] up: With: Address: When: Tulio Vaughan [address] [place] [address] Business (1) In 3 days 06/27/2022 With: Address: When: Rinku Encinas [address] [facility], [place] [address] Business (1) In 3 days DIAGNOSIS: Rotator cuff injury Normal [facility] ED Note-Physicianon 06-25-19 ED Note-Physician Basic Information [...] and Complexity of Problems Differential Diagnosis: [facility] External documents reviewed: Not applicable [...] Vaughan In 3 days 06/27/2022 EST [address] [place] [address]- Business (1) Additional Instructions: Rinku Encinas In 3 days [address] [facility], [facility] [place] [address]- Business (1) Additional Instructions: Patient Education How To Use a Sling Attestation Patient seen and evaluated by the physician anesthesiologists' assistant. Attending physician was present in the emergency department and supervised care. This visit was performed by both the physician and an APC. I performed all aspects of the MDM as documented. This report was transcribed using voice recognition software. Every effort was made to ensure accuracy, however, inadvertently computerized nipple threader mistakes may be present. Appropriate healthcare PPE was used in evaluating this patient. The patient was placed in a mask. The healthcare provider was wearing mask, gloves, and utilizing proper hand hygiene. 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 Normal [facility] Comment on above: Result Comment: [...] 11/27/2004 Document Revised: 03/28/2018 Document Reviewed: 03/06/2018 [employer] Patient Education ? 2019 [employer]. Normal [facility] ED Patient Summaryon 023 ED Patient Summary (Inserted Image. Linda ble to display) [address] [address] Patient Discharge Instructions Person Information Name: ESTRADA PFEIFFER Age: 77 Years Arrival Date: 06/24/2022 21:36:41 Discharge Diagnosis: Rotator cuff injury Primary Care Physician: Rinku Encinas III, DO Provider Information Primary Provider: Josh Obando DO [employer] Optician:Amadou Hobson PA-C The exam and treatment you received in the Emergency Department were for an urgent problem and are not intended as complete care. It is important that you follow up with a doctor, nurse practitioner, or physician?s anesthesiologists' assistant for ongoing care. If your symptoms [...] Instructions: With: Address: When: Tulio Vaughan [address] [place] [address] [employer] (1) In 3 days 06/27/2022 With: Address: When: Rinku Encinas [address] [place] [address], [facility] [place] [place] [address] [employer] (1) In 3 days In the event that this physician does not participate in your insurance network, please consult with your insurance company to find a nearby participating provider. Patient Education Materials: How To Use a Sling A MESSAGE TO ALL PATIENTS REGARDING OPIOIDS PRESCRIPTION OPIOIDS: WHAT YOU NEED TO KNOW Prescription opioids can be used to help relieve krwcfooa-vi-kahjar pain and are often prescribed following a [...] guidance from the Food and Drug Administration (www.fda.gov/Drugs/Resources ForYou). ? Visit www.cdc.gov/drugoverdose to learn about the risks of opioids abuse and overdose. ? If you believe you may be struggling with addiction, t (more content not included)... Normal [facility] XR Shoulder Complete Righton 06-25-2022 XR Shoulder [...] in mGy = n/a DAP = n/a [facility] Consent for Treatmenton 05-31 Consent for Treatment [id number]#1.00CD:127 [facility] Coding Summary.on 06-04-2022 Coding Summary. CD:[id number] Gh0bWw+P GhlYWQ+GI6VINMxH24yeONyvV1UD 3kFGE0PTQCGKPVMVU1XTK8wiIF2O XedV1VkreZa KwousDMoGH41XGy4WNA0zYpjZMwd eC7xzXNvH0y4KjEhMW44cL93HRht UCDkKqN4GwNbutnzeILn O2hqBcWzoESrCjg+PHRhYmxlIHdp HRPcQFikVCMfXyDleNftFH4uKa6v ZGVyLWNvbGxhcHNlOiBj o5pgPBMhKYtlQE5rfXdpT0WneKN5 UXDtn2j9Eu72dTX+GGWoDKM7aQwe IYjml544KgSei2pmSAC8 sIMlDCcdFMK1L55wf2M2JHRaXWPl HZA6eLM8qX1jeCfgrnxbY6LjlVQu NhO1TSW7aXUkgW2edMdw espglQ1iNkj+T80YKR3KZHBLQB5Y Wxp7J8KgVinvcWM+QS75EDRlKW48 fCEckLJbl8xbuEa2VbIg TCDhVEQ6wDtiWBatk2IaMLNtH22v iRZst6T6YTQldOgahWVqDgRpnBA2 yF5hVStwdugqu0gbucdh Hdmov0sfru54hC50U48oCNjbMEAe SZF0CYBcGTQlqHvfbw8zdV7tUg5+ MOyum2ytf1cqtTj7TlXq IRLuemKcoJdyBOA2y0NlFv86W0Et pVitm3TwXtg9ih33zTLfj7Q1pSW4 UCzrJECddV2dGKchMhK3 VDTjOhGkeE21tWCyFXwbDx7vsXkp zDtpYI3xSOWyrccwASNrrB6rHWSw xHIlkMmdEW7jMDNwsrxa h012NrZnPLK4WAXdmPFpX2WraI1s DtVaXPTfOHEsU3BthRZhAAgjX843 PIcuVyB7CBGdyoGrQ9Se HSZujFrlTmI8k7W1Iq5La8Oqjlom WGF2ZBpnFDGgXrE4XcQkBwQ2J6Yy Ejz2PTOvwNatKT0sX0Zk QNAxhpbwownmkKO9RZHsBFCbgR71 bAJgBUsoVe4wj0E3k680KQBkJFOn nH06Mo0fjUzcCXDjzCMW gY1jbvbdy4sfxpygRcPrEMYhOLd5 SAy7WPUscZcdDlXfMNO6QgO3FJX9 zSMsoG0uhSpnlscouS1g Oyc+L42alQ3qVOA9KOL7xkumQURr rwRdCI24JF08K2AjYuapwJDnaFQ+ NADvzmKpgJdpVA1qLvZh c1ien4WlKRatM2JzOHUpOAscYpc7 HJAbAXJ7oRL4bT1vUFAuEZaae6R7 mWB3Q5FjdaDwjs2iw1hf YIWjMHeuP18fbCDnn4A1MBErbSE7 BQQysDfkSeEcmG57Yuc+PGNvbGdy x1XcTvrcu7ioa6dowTo7 TuVtOLCpcdEvvHfqEWR0y5KuTx63 O42mJZaxYSJwNQQoKZLoFLNjwXvl ut7yvT1rVs4+PGNvbCB3 cWX5wQ9wQJFnUuB2IKiiR024BzDx yKZsLbxmt0upv4jebOn6UjBpXTCm oiVphDzbWEP5q4DzLw60 T59zZHnjGDAmRHQmHWPuVSTcfIte xf6gyF4xRn8+QP4eo6jarl76cQ86 dHI+SYMhFSA2zOtcQCbu TTKdkW0mZOvmOeZ3HYMjIvKfkL31 zMIkIEkhXc0zyOirvXmqKY4iMNOu hriic598YrKtg8yaWIWu bSEsNVbbQAJ2I19ct2R0FEUkQMZx XEO5uAK8jJ8cvBdxqusmeXHghDln zpNmjEfbDVcmYJfxW015 IHRvcDsnPlBhdGllbnQgTmFtZTo8 Q0StZzx2OPUwnFpzQW5drAMrCKsz Tn4buRxrmLhgNE0rFGHf gqdhx837WtFsp0ggNHQwbKHeDPwp IYH2I22cf0R9XOKhCCEjLGO2iNZ2 tW6elRedfppbmANuyZtr nrUmjAtbMRpyAMffO447MYYmcQwg CdOsfpRbWZJgsXN7PM60JY06pDHp t1Q9oFG0A3AbZRIuwdrh ntoptWM5UXPeGYEorP29Sm3wnAgc Dd0pUTNnGAD4TSFlrMTdZ5UyyO9d WfBkSFQqRBRyR2JwdCOu HWjyL231JHpcBfF6KYUbyqQdF2Tg YDLfgZwtRiJ0e2T3Tb4UB8N9VU29 JS97yUXlu2X4lYV7H4Xk SEDmfkffmlahxMK4WXQvHBWgrZ10 Wy6edAeyOl8yOMWqSAT5WDJixJJo N4BvuN4mRrIuAKCsWQNo Z0VmtYFsRAynU202SMcwSaN4TEWc ngWnN4IfHXBqnSscMpP0i1V7Ia7X DWe5TU62SF57eYOnd6K7 nMC7Y9RvVYPsjunxwgwejTL3PLGa YXAtyU09Uu6ijWiiKn1vVWSiWSV2 WESkjJFuF0VrfJ7oIhJu KKJmVKZvP1RinWJiXDocI435KOju IkP4HDOxwiAsK9CpSCChsWjoNjB0 p8U9Gj2BLEPnIV72FJB1 tWI3WE91CB28V4ZdMlbvtWFaeNB+ PHRhYmxlIHdpZHRoPScxMDAlJyBz yAgrCB0oAt1gSIRiOUMw jGrviGSfHqBbt4llYWOcCKbuNF2m vVawU2FigXZ7OJWat7d7Ii69H79u S1DmuJZ+AVNuuSZ5nLY5 jD7wNaFgAiN8KHbiZ292PmUfdVWd Ljxzz8zdf8jkeQb3SrF1SELeqbEw hSzuMFZ6h0LvZp05I92m PBsjZZTgRWQqKZFzKBJuxNleno5b eZ6gYm1+VTUwmEK7zKL5oF2bHeMh AjF6HTmfP566TnQcpPWa Sflvl7mys2uerIn8LcAcFLWduoCx hKltIAG6z6AbMm38J7WyfFasg6Ft Ouz1zi43uWIhv2M6jGT9 Q7IgOPYlbwudpCWkwKlrXI9tJUSt dvssUWSvkF2aQVRfR4n5RnIdIpW8 POfhT3LffbO9IHLycAWn ECwdETD6U32va2A2VICiUDKhLHC5 gYP2zR4goIabhrewsDNxuBabvmDm eQgeYTmvYXcqP210KNDo vUvsCQIqdL6sATBnqIEdyGlwLO5o UZFnzgfzWkyPLXqZKNVJPI3NGVPi QTwvdGQ+VQWnFJS5wGfs IKoiJVZkqM1fOAPwG6s6NaMhFqI2 JFstQ3EaCCMjjhiuXg29rE0tSfHm BnL0KAwlB2MauqM2RBMa tGIbGRafJYB7E74if7P3DECpGJHo JPM6uSD3iJ5mjFhdlyufkGYmqDhg tgEhrBydFCacDXmhP921 FRYquOmxQqLdXsQiIrC5KHs4Q3Hp Mud6ABRhgJrmNK2prQFwIEdfDp0c mDvdvSjeRU1dWUHzjrbq GXPpoC7xHYTuiKTbrSxuMW0hBJKq ltkvt521QgZhFZV0SFXblYDrN7Ap mK4iLxVjIODxZLFgP2Sa rPIeNOycQ021AIpcXyN4IFJoaiBq N0PhVATihHxuWjJ9b1H9Xq78XaMI ZWFyczwvdGQ+PHRkIHN0 tMnvEAyyHCSgtZ7kOOIkG9d5ZlDl AaU3HCorQ2QuCDXkxglyLi97mD1z VkBiZrW9UJsjY9UwuyX8 HJRbkHDoKTkaSGV7G36uz9L4CZYg QQZmDYF6tQT8pF2vuKmkdmriyFVe dDsgdmVydGljYWwtYWxp K330DVAucGvpQk5tyPD0W1DbOct0 ADTukQmqGK5tzLXvFJueGe9lyKpf gUdsGW8kYXCydybpPYOe vD6sVYYzrNGefDlyMH6lIFYjugvt t093KoUaXQV9BJIasEIwE1CfqI7b EoJeYEEfWNUdN8ZxaLJt SXywG576PIlcHhS9SMIrmqFwN1Xl VLEpqYeaCtT2q9V2Al9UlHHgZLSh TU67HW75CZ71I6BbNjxk dGFibGU+PHRhYmxlIHdpZHRoPScx CWKuGtJnyIymDC2iAo5pJMUbVEGx rWguxVSvPuLte5geREUi CTtaTJ1jcZlwK3AfsEE8STMsu9y8 Xk92H17jY3JmuUR+YRYizRW1zLO3 xG4mTiZrVyY0BIakN180 ZcHskJWgZhtdi1qns0adiMe9SfPr UUZdmwXatFjtPZK9b2OcPs49E74x IHdpZHRoPSIyMCUiIHZh jQhdxu1igD1nSd0+AKAlzIX0uJV7 wA1vQsIzDeG9SJnlJ605PaZjmPTj FqxmM32vO7ZeyFB+PHRy Mla8HRGklDkwZM9zzNEhMJifQf7b WZR1PyIaHpPkZFvqA4QgNZKlmvtf qqfwiFL4XMMxEHHkaW45 Qq0clEvoSh8xJXGxRGR9UAJlpYAk Q5TloI4sOoFkUZRrDDRiK3RdxTJz QEwbJ759YZihEfE5INVn sgDjH2ZgINMwpClmQoY2h1M2Zk2M rCxynIOqCV7lQpRfCGm1C3MaRmj9 YZMchHpaZN8vmKVeOIxu Wf3ncSrpeYqhOU3dVDHcrjawx080 QgAto8fmLZYocZJjUHvlFOP2N69k z9J6XCMkIMDfEJL4rFF9 pZ3neJwpxvyzvTNvyPwygfVmpOnc DPuwYGfhU257OIHslAkwTuFJXvi8 M7AuVfv2WZDqoTbvES7p gSMbMWybQr7hiTgldPkmWB2uVEUt svzom059KbLzt7cpSJYujOMuYCcr ARM3P94fv2J6PCGnUTRq QXM3bLH0kU2pxDljtvhhmBIwjMva rmSbdInjNHbxPLpuF074HOEylZqs Lk9MPoj8A3XgOya8YGJm aYucNT8nvAUwCQnmBf4tpYbltJax NI7bAHGjeudei057QmEjx5rfAXEq oRPwIBmpQZE5S32tk1H5 OQMkRXGeUOZ6nYH7yY5aeGyiauvp tULhfJhpecMwmMuhMZvlGMtqH507 IHRvcDsnPlBheWVyOjwv dGQ+HW28yv96M9SbJnwzBaw1VNQb TPM4cEP2fX3aTXRyPPuin9W9pHZ3 K1FvcbMqha3ur1tsIFSa ZTog (more content not included)... Normal [facility] Office Visit (Cardiology)on 05-31-2022 Follow-up visit Diagnoses/Problems [...] a smoker Tobacco Use Screening; Status:Complete; Done: [id number] Patient Instructions Please bring all medicines, vitamins, [...] several months ago by vascular surgery at [facility]. Lipid profile from recent testing was reviewed [...] he had venous stripping last year at [facility] 6. Sleep apnea on CPAP machine with compliance. Summer Deshpande MD, [facility] Surgical History Problems History of Cardiac [...] for co (more content not included)... Normal AFTER-MOUSE Tobacco Screening.on 023 Fall risk assessment a) No falls within the last year [facility] [employer] DO Work Phone: Tobacco use status [facility] b) No [facility] [employer] DO Work Phone: Tobacco Screening. Yes [facility] NGI 250 DO Work Phone: Xu 05-30-2022 ALT No additional P-5'-P [Catalytic activity/Vol] 14 Int._Unit/L Normal 6-46 [facility] Comment on above: Performed By: #### 2 [id number] #### [facility] [address] [place] [address] [place] 05-30-2022 AST [Catalytic activity/Vol] 16 Int._Unit/L Normal 5-43 [facility] Comment on above: Performed By: #### 2 [id number] #### [facility] [address] [place] [address] CHEMISTRYOrdered By: SYSTEM SYSTEM on 05-30-2022 ALT [...] Remisol Consent for Treatmenton Consent for Treatment [id number]:127 Normal [facility] Lipid Panelon 05-30-2022 Cholesterol [Mass/Vol] 138 mg/dL Normal 120-200 [facility] Comment on above: Performed By: #### 2 [id number] #### [facility] [address] [place] [address] Cholesterol in HDL [Mass/Vol] 49 mg/dL Invalid Interpretation Code [facility] Comment on above: Result Comment: HDL > or equal to 60 mg/dL: Low cardiovascular risk HDL < 40 mg/dL : High cardiovascular risk Performed By: #### 2 [id number] #### [facility] [address] [place] [address] Cholesterol in LDL [Mass/Vol] 71 mg/dL Normal <=129 [facility] Comment on above: Performed By: #### 2 [id number] #### [facility] [address] [place] [address] Cholesterol in VLDL [Mass/Vol] 16 mg/dL Normal 7-40 [facility] Comment on above: Performed By: #### 2 [id number] #### [facility] [address] [place] [address] Triglyceride [Mass/Vol] 82 mg/dL Normal <=149 [facility] Comment on above: Performed By: #### 2 [id number] #### [facility] [address] [place] [address] Physician Orderon 05-30-2022 Physician Order [id number]:127 Normal [facility] CHEMISTRYOrdered By: SYSTEM SYSTEM on 02-06-2022 Prostate specific Ag [Mass/Vol] ng/mL Normal 0.1 - 3.5 ng/mL [facility] Remisol Falls Screening (Age 18+)on 11-16-2021 Adult depression screening assessment No [facility] NGI 250 DO Work Phone: Fall risk assessment a) No falls within the last year [facility] NGI 250 DO Work Phone: Tobacco Screening.on 022 Fall risk assessment b) One or more falls in the last year [facility] NGI 250 DO Work Phone: Tobacco use status [facility] b) No [facility] [employer] juliet 250 DO Work Phone: Vital Signs Date Time Vital Sign Value Performing Clinician Facility 05-24-2023 13:10-0500 Blood Pressure Location Zina Ugalde [facility] 05-24-2023 13:10-0500 Diastolic blood pressure 82 mm[Hg] Zina Ugalde [facility] 05-24-2023 13:10-0500 Heart rate 68 /min Izaguirre Sarmini [facility] 05-24-2023 13:10-0500 Respiratory rate 16 /min Izaguirre Sarmini [facility] 05-24-2023 13:10-0500 Systolic blood pressure 138 mm[Hg] Izaguirre Sarmini [facility] 05-09-2023 11:00-0500 Diastolic blood pressure 78 mm[Hg] Izaguirre Sarmini [facility] 05-09-2023 11:00-0500 Heart rate 53 /min Izaguirre Sarmini [facility] 05-09-2023 11:00-0500 Mean blood pressure 99 mm[Hg] Izaguirre Sarmini [facility] 05-09-2023 11:00-0500 Respiratory rate 17 /min Izaguirre Sarmini [facility] 05-09-2023 11:00-0500 SaO2% (BldA) [Mass fraction] 97 % Izaguirre Sarmini [facility] 05-09-2023 11:00-0500 Systolic blood pressure 141 mm[Hg] Izaguirre Sarmini [facility] 05-09-2023 10:45-0500 Diastolic blood pressure 75 mm[Hg] Izaguirre Sarmini [facility] 05-09-2023 10:45-0500 Heart rate 60 /min Izaguirre Sarmini [facility] 05-09-2023 10:45-0500 Mean blood pressure 93 mm[Hg] Izaguirre Sarmini [facility] 05-09-2023 10:45-0500 Respiratory rate 23 /min Izaguirre Sarmini [facility] 05-09-2023 10:45-0500 SaO2% (BldA) [Mass fraction] 96 % Izaguirre Sarmini [facility] 05-09-2023 10:45-0500 Systolic blood pressure 128 mm[Hg] Izaguirre Sarmini [facility] 05-09-2023 10:40-0500 Diastolic blood pressure 85 mm[Hg] Izaguirre Sarmini [facility] 05-09-2023 10:40-0500 Heart rate 59 /min Izaguirre Sarmini [facility] 05-09-2023 10:40-0500 Mean blood pressure 97 mm[Hg] Izaguirre Sarmini [facility] 05-09-2023 10:40-0500 Respiratory rate 12 /min Izaguirre Sarmini [facility] 05-09-2023 10:40-0500 SaO2% (BldA) [Mass fraction] 95 % Izaguirre Sarmini [facility] 05-09-2023 10:40-0500 Systolic blood pressure 122 mm[Hg] Izaguirre Sarmini [facility] 05-09-2023 10:30-0500 Body temperature 98.06 [degF] Izaguirre Sarmini [facility] 05-09-2023 10:25-0500 Respiratory rate 16 /min Izaguirre Sarmini [facility] 05-09-2023 10:20-0500 Respiratory rate 15 /min Izaguirre Sarmini [facility] 05-09-2023 10:15-0500 Respiratory rate 15 /min Izaguirre Sarmini [facility] 05-09-2023 09:35-0500 Blood Pressure Location Izaguirre Sarmini [facility] 05-09-2023 09:35-0500 Body temperature 98.06 [degF] Izaguirre Sarmini [facility] 05-02-2023 16:00-0500 Body height 180.34 cm Priscila Mccormack Other [employer] Other 05-02-2023 16:00-0500 Body mass index (BMI) [Ratio] 35.56 kg/m2 Priscila Mccormack Other [employer] Other 05-02-2023 16:00-0500 Body weight 115.67 kg Priscila Mccormack Other [employer] Other 05-02-2023 16:00-0500 Diastolic blood pressure 90 mm[Hg] Priscila Mccormack Other [employer] Other 05-02-2023 16:00-0500 SaO2% (BldA) [Mass fraction] 97 % Priscila Mccormack Other [employer] Other 05-02-2023 16:00-0500 Systolic blood pressure 130 mm[Hg] Priscila Mccormack Other [employer] Other 03-18-2023 10:36-0500 Blood Pressure Location [facility] 03-18-2023 10:36-0500 Diastolic blood pressure 82 mm[Hg] Izaguirre Sarmini [facility] 03-18-2023 10:36-0500 Heart rate 70 /min Izaguirre Sarmini [facility] 03-18-2023 10:36-0500 Respiratory rate 18 /min Izaguirre Sarmini [facility] 03-18-2023 10:36-0500 Systolic blood pressure 136 mm[Hg] Izaguirre Sarmini [facility] 03-06-2023 15:22-0500 Diastolic blood pressure 85 mm[Hg] ANJELICA MATTHEW [facility] 03-06-2023 15:22-0500 Heart rate 74 /min ANJELICA MATTHEW [facility] 03-06-2023 15:22-0500 Systolic blood pressure 137 mm[Hg] ANJELICA MATTHEW [facility] 12-17-2022 13:33-0400 Body height 180.34 cm Rinku Encinas Work Phone: [facility] [employer] 250 DO Work Phone: 12-17-2022 13:33-0400 Body mass index (BMI) [Ratio] 34.84 kg/m2 Rinku Encinas Work Phone: [facility] DO Work Phone: 12-17-2022 13:33-0400 Body surface area Derived from formula 2.32 m2 Rinku Encinas Work Phone: [facility] SolarYanick 250 DO Work Phone: 12-17-2022 13:33-0400 Body weight 113.31 kg Rinku iSndy Encinas Work Phone: [facility] 250 DO Work Phone: 12-17-2022 13:33-0400 Diastolic blood pressure 72 mm[Hg] Rinku R Encinas Work Phone: [facility] 250 DO Work Phone: 12-17-2022 13:33-0400 Heart rate 54 /min Rinku R Encinas Work Phone: [facility] 250 DO Work Phone: 12-17-2022 13:33-0400 Systolic blood pressure 118 mm[Hg] Rinku R Encinas Work Phone: [facility] 250 DO Work Phone: 10-03-2022 13:51-0400 Blood Pressure Location ANJELICA MATTHEW [facility] 10-03-2022 13:51-0400 Diastolic blood pressure 74 mm[Hg] ANJELICA MATTHEW [facility] 10-03-2022 13:51-0400 Heart rate 68 /min ANJELICA MATTHEW [facility] 10-03-2022 13:51-0400 Respiratory rate 16 /min ANJELICA MATTHEW [facility] 10-03-2022 13:51-0400 Systolic blood pressure 132 mm[Hg] ANJELICA MATTHEW [facility] 06-24-2022 22:35-0500 Nursing Progress Note Reason Other: portable XR at bedside at this time. Josh Topher [facility] 06-24-2022 21:44-0500 Body temperature 97.7 [degF] Josh Lloydner [facility] 06-24-2022 21:44-0500 Diastolic blood pressure 91 mm[Hg] Josh Lloydner [facility] 06-24-2022 21:44-0500 Heart rate 63 /min Josh Topher [facility] 06-24-2022 21:44-0500 Respiratory rate 18 /min [facility] Topher [facility] 06-24-2022 21:44-0500 SaO2% (BldA) [Mass fraction] 98 % Josh Topher [facility] 06-24-2022 21:44-0500 Systolic blood pressure 178 mm[Hg] Josh Topher [facility] 05-31-2022 09:15-0500 Body height 180.34 cm Rinku Sindy Encinas Work Phone: [facility] [employer] 250 DO Work Phone: 05-31-2022 09:15-0500 Body mass index (BMI) [Ratio] 35.29 kg/m2 Rinku Larsoners Work Phone: [facility] [employer] 250 DO Work Phone: 05-31-2022 09:15-0500 Body surface area Derived from formula 2.33 m2 Rinku Larsoners Work Phone: [facility] [employer] 250 DO Work Phone: 05-31-2022 09:15-0500 Body weight 114.76 kg Rinku Encinas Work Phone: [facility] [employer] 250 DO Work Phone: 05-31-2022 09:15-0500 Diastolic blood pressure 84 mm[Hg] Rinku Encinas Work Phone: [facility] [employer] 250 DO Work Phone: 05-31-2022 09:15-0500 Heart rate 68 /min Rinku Encinas Work Phone: [facility] [employer] 250 DO Work Phone: 05-31-2022 09:15-0500 Systolic blood pressure 122 mm[Hg] Rinku Encinas Work Phone: [facility] [employer] 250 DO Work Phone: 01-31-2022 16:00-0400 Body height 180.34 cm Priscila Mccormack Other [employer] Other 01-31-2022 16:00-0400 Body mass index (BMI) [Ratio] 35.28 kg/m2 Priscila Mccormack Other [employer] Other 01-31-2022 16:00-0400 Body temperature 97.1 [degF] Priscila Mccormack Other [employer] Other 01-31-2022 16:00-0400 Body weight 114.76 kg Priscila Mccormack Other [employer] Other 01-31-2022 16:00-0400 Diastolic blood pressure 78 mm[Hg] Priscila Mccormack Other [employer] Other 01-31-2022 16:00-0400 SaO2% (BldA) [Mass fraction] 96 % Priscila Mccormack Other [employer] Other 01-31-2022 16:00-0400 Systolic blood pressure 123 mm[Hg] Priscila Mccormack Other [facility] [employer] Other 01-29-2022 09:21-0400 Blood Pressure Location Milla Montoya [facility] 01-29-2022 09:21-0400 Diastolic blood pressure 80 mm[Hg] Milla Montoya [facility] 01-29-2022 09:21-0400 Heart rate 90 /min Milla Montoya [facility] 01-29-2022 09:21-0400 SaO2% (BldA) [Mass fraction] 100 % Milla Montoya [facility] 01-29-2022 09:21-0400 Systolic blood pressure 146 mm[Hg] Milla Montoya [facility] 12-11-2021 23:00-0400 Diastolic blood pressure 80 mm[Hg] Reji Dickinson [facility] 12-11-2021 23:00-0400 Heart rate 58 /min Reji Dickinson [facility] 12-11-2021 23:00-0400 SaO2% (BldA) [Mass fraction] 98 % Reji Dickinson [facility] 12-11-2021 23:00-0400 Systolic blood pressure 148 mm[Hg] Reji Dickinson [facility] 12-11-2021 22:33-0400 Body temperature 98.24 [degF] Reji Dickinson [facility] 12-11-2021 22:33-0400 Diastolic blood pressure 76 mm[Hg] Reji Dickinson [facility] 12-11-2021 22:33-0400 Heart rate 57 /min Reji Dickinson [facility] 12-11-2021 22:33-0400 Respiratory rate 16 /min Reji Dickinson [facility] 12-11-2021 22:33-0400 SaO2% (BldA) [Mass fraction] 97 % Reji Dickinson [facility] 12-11-2021 22:33-0400 Systolic blood pressure 159 mm[Hg] Reji Dickinson [facility] 11-16-2021 09:24-0400 Body height 180.34 cm Rinku R Encinas Work Phone: [facility] 250 DO Work Phone: 11-16-2021 09:24-0400 Body mass index (BMI) [Ratio] 35.29 kg/m2 Rinku R Encinas Work Phone: [facility]an[employer] 250 DO Work Phone: 11-16-2021 09:24-0400 Body surface area Derived from formula 2.33 m2 Rinku R Encinas Work Phone: [facility] 250 DO Work Phone: 11-16-2021 09:24-0400 Body weight 114.76 kg Rinku R Encinas Work Phone: [facility] 250 DO Work Phone: 11-16-2021 09:24-0400 Diastolic blood pressure 84 mm[Hg] Rinku R Encinas Work Phone: [facility] 250 DO Work Phone: 11-16-2021 09:24-0400 Heart rate 62 /min Rinku R Encinas Work Phone: [facility] 250 DO Work Phone: 11-16-2021 09:24-0400 Systolic blood pressure 122 mm[Hg] Rinku R Encinas Work Phone: [facility] 250 DO Work Phone: 05-08-2021 13:46-0500 Diastolic blood pressure 84 mm[Hg] Rinku R Encinas Work Phone: [facility] 250 DO Work Phone: 05-08-2021 13:46-0500 Systolic blood pressure 126 mm[Hg] Rinku R Encinas Work Phone: [facility] 250 DO Work Phone: 05-08-2021 13:41-0500 Diastolic blood pressure 93 mm[Hg] Rinku R Encinas Work Phone: [facility] 250 DO Work Phone: 05-08-2021 13:41-0500 Systolic blood pressure 132 mm[Hg] Rinku Callahan Encinas Work Phone: [facility] 250 DO Work Phone: 05-08-2021 13:39-0500 Body height 180.34 cm Rinku R Encinas Work Phone: [facility] 250 DO Work Phone: 05-08-2021 13:39-0500 Body mass index (BMI) [Ratio] 35.01 kg/m2 Rinku Sindy Encinas Work Phone: [facility] 250 DO Work Phone: 05-08-2021 13:39-0500 Body surface area Derived from formula 2.32 m2 Rinku R Encinas Work Phone: [facility] 250 DO Work Phone: 05-08-2021 13:39-0500 Body weight 113.85 kg Rinku R Encinas Work Phone: [facility] 250 DO Work Phone: 05-08-2021 13:39-0500 Diastolic blood pressure 87 mm[Hg] Rinku Encinas Work Phone: [facility] 250 DO Work Phone: 05-08-2021 13:39-0500 Heart rate 60 /min Rinku Encinas Work Phone: [facility] [employer] 250 DO Work Phone: 05-08-2021 13:39-0500 Systolic blood pressure 136 mm[Hg] Rinku Encinas Work Phone: [facility] [employer] 250 DO Work Phone: Encounters Encounter Date Encounter Type Care Provider Facility Start: 05-24-2023 End: 05-25-2023 ambulatory Izaguirre Talal Sarmini Facility:[facility] Start: 05-24-2023 End: 05-25-2023 ambulatory Izaguirre Talal Sarmini Facility:[facility] Start: 05-24-2023 End: 05-24-2023 Patient encounter procedure Izaguirre Talal Sarmini [facility] Start: 05-24-2023 End: 05-24-2023 Patient encounter procedure Izaguirre Talal Sarmini [facility] Start: 05-14-2023 End: 05-14-2023 ambulatory STEPHANIE RODNEY Not Available Start: 05-09-2023 End: 2023 ambulatory Izaguirre Talal Sarmini Facility:[facility] Start: 05-09-2023 End: 05-09-2023 Patient encounter procedure Izaguirre Talal Sarmini [facility] Start: 05-06-2023 End: 05-06-2023 ambulatory Priscila Mccormack Other [facility] [employer] Other Start: 05-06-2023 Telephone encounter Priscila Mccormack [facility] [address] Start: 05-02-2023 End: 05-02-2023 Patient encounter procedure DO Rinku Encinas III Work Phone: [facility] Work Phone: Start: 05-02-2023 End: 05-02-2023 ambulatory DO Rinku R Encinas III Work Phone: [facility] Work Phone: Start: 05-02-2023 Office outpatient vi sit 15 minutes Priscila Mccormack [facility] Start: 03-25-2023 End: 03-25-2023 ambulatory KAYLI PARSON Not Available Start: 03-18-2023 End: 03-19-2023 ambulatory Rinku R Huang Facility:[facility] Start: 03-18-2023 End: 03-18-2023 Patient encounter procedure Izaguirre Paulina Romanmini [facility] Start: 03-06-2023 End: 03-07-2023 ambulatory ANJELICA NATION Facility:[facility] Start: 03-06-2023 End: 03-06-2023 Patient encounter procedure ANJELICA NATION [facility] Start: 03-05-2023 End: 03-06-2023 ambulatory ANJELICA NATION Facility:[facility] Start: 03-05-2023 End: 03-05-2023 Patient encounter procedure ANJELICA NATION [facility] Start: 02-06-2023 End: 02-07-2023 ambulatory Todd CRUZ Facility:[facility] Start: 02-06-2023 End: 02-06-2023 Lab Drop off Todd CRUZ [facility] Start: 02-06-2023 End: 02-06-2023 Patient encounter procedure Todd CRUZ [facility] Start: 12-17-2022 Office outpatient vi sit 25 minutes Rinku Encinas Work Phone: [facility] 250 DO Work Phone: Start: 12-17-[address] Rinku Encinas III Facility: Start: 11-19-2022 ambulatory Zina Posadasi ty:[facility] Start: 10-16-2022 End: 10-17-2022 ambulatory Todd CRUZ Facility:[facility] Start: 10-16-2022 End: 10-16-2022 Patient encounter procedure Todd CRUZ [facility] Start: 10-11-2022 End: 10-12-2022 ambulatory ANJELICA NATION Facility:[facility] Start: 10-11-2022 End: 10-11-2022 Patient encounter procedure ANJELICA Meza MATTHEW [facility] Start: 10-03-2022 End: 10-04-2022 ambulatory ANJELICA Meza MATTHEW Facility:[facility] Start: 10-03-2022 End: 10-03-2022 Lab Drop off ANJELICA E MATTHEW [facility] Start: 10-03-2022 End: 10-03-2022 Patient encounter procedure ANJELICA E MATTHEW [facility] Start: 05-30-2023 Rx Renewal [facility]arris [facility] Work [facility]: Start: 07-02-2022 End: 07-03-2022 ambulatory Jesús Clement Facility:[facility] Start: 07-02-2022 End: 07-02-2022 Patient encounter procedure Tulio Vaughan [facility] Start: 06-24-2022 End: 06-25-2022 Emergency department patient visit Josh Obando Facility:[facility] Start: 06-24-2022 End: 06-24-2022 Emergency department patient visit Josh Grijalva Topher [facility] Start: 06-14-2022 End: 06-14-2022 ambulatory Priscila Mccormack Other [facility] [employer] Other Start: 06-14-2022 Telephone encounter Priscilaalex Mccormack [facility] Start: 05-31-[address] Summer Deshpande Facility: Start: 05-31-2022 Office outpatient vi sit 25 minutes [facility]inku [facility]cinas [facility] Work Phone: Start: 05-30-2022 End: 05-31-2022 ambulatory Summer Deshpande Facility:[facility] Start: 05-30-2022 End: 05-30-2022 Patient encounter procedure Summer Deshpande [facility] Start: 02-06-2022 End: 02-06-2022 Patient encounter procedure Todd CRUZ [facility] Start: 01-31-2022 End: 01-31-2022 Patient encounter procedure DO Rinku Encinas III Work Phone: [facility] Start: 01-31-2022 End: 01-31-2022 ambulatory DO Rinku Sindy LarsonEncinas III Work Phone: [facility] Work Phone: Start: 01-31-2022 Office outpatient vi sit 25 minutes Priscila Mccormack [facility] Start: 01-29-2022 End: 01-29-2022 Patient encounter procedure Milla ChávezParveen Baxteran [facility] Start: 01-18-2022 End: 01-18-2022 Patient encounter procedure Milla Holder Jan [facility] Start: 12-11-2021 End: 12-11-2021 Emergency department patient visit Reji Dickinson [facility] Start: 11-16-2021 Office outpatient vi sit 25 minutes Rinku Larsoners Work Phone: [facility] 250 DO Work Phone: Start: 10-25-2021 Rx Renewal Rinku Lee rs Work Phone: [facility] 250 DO Work Phone: Start: 08-23-2021 End: 08-23-2021 Patient encounter procedure DO Rinku Larsoners III Work Phone: [facility] Start: 05-08-2021 Office outpatient vi sit 25 minutes Rinku Larsoners Work Phone: [facility] 250 DO Work Phone: Procedures Date Procedure Procedure Detail Performing Clinician Start: 05-09-2023 Colonoscopy Zina Romanmini Start: 05-09-2023 Esophagogastroduodenoscopy Izaguirre Sarm ini Start: 10-16-2022 Cystourethroscopy with dilation of urethral stricture Todd CRUZ Start: 02-15-2022 Endovenous laser ablation of varicose vein Summer Deshpande Comment on above: bilateral Start: 06-27-2021 Total knee replacement Reji Dickinson Start: 06-11-2017 Cystoscopy ANJELICA NATION Comment on above: 12/02/07, 05/1013, 05/1317 Start: 04-13-2016 left total knee arthroplasty Reji Dickinson Start: 02-23-2014 left shoulder arthroscopy with extensive glenohumeral debridement, subacromial decompression, partial distal clavicectomy, mini-open rotator cuff repair Reji Dickinson Start: 07-12-2011 Brachytherapy ANJELICA NATION Start: 07-12-2011 Implantation of radioactive seed into prostate Reji Dickinson Start: 08-12-2007 Laser ablation of prostate Reji Dickinson Start: 07-15-2007 Cystoscopy Reji Dickinson Comment on above: 12/02/07, 05/1013, 05/1317 Start: 07-15-2007 Urodynamic studies Reji Dickinson Start: 05-24-2000 Transrectal biopsy of prostate using ultrasound guidance Reji Dickinson Comment on above: 01/23/11 Arthroplasty of knee Rinku Encinas Work Phone: Comment on above: RIGHT AND LEFT; Cardiac catheterization Katty Encinas Work Phone: Herniated structure (morphologic abnormality) Reji Dickinson Malignant tumor of p rostate (disorder) Reji Dickinson Comment on above: radiation seed implant Percutaneous translu luciana coronary angioplasty Rinku Encinas Work Phone: Procedure on neck Rinku Encinas Work Phone: Procedure on prostate Tigre Encinas Work Phone: Sleep studies Reji Dickinson Stented coronary artery (finding) Reji Dickinson Total colonoscopy Rinku Encinas Work Phone: Vascular surgery procedure R atilio Encinas Work Phone: Plan of Treatment Date Care Activity Detail Author Start: 03-12-2024 ambulatory Ambulatory Facility:[facility] Start: 06-25-2023 FUV, Provider: Summer Deshpande, Status: Pen, Time: 9:20 AM [facility], Provider: Summer Deshpande, Status: Pen, Time: 9:20 AM [place] [address] DO Work Phone: Start: 11-29-2022 FUV, Provider: Summer Deshpande, Status: Pen, Time: 9:10 AM [facility]UV, Provider: Summer Deshpande, Status: Pen, Time: 9:10 AM [facility] 250 DO Work Phone: Start: 05-31-2022 FUV, Provider: Summer Deshpande, Status: Pen, Time: 9:00 AM FUV, Provider: Summer Deshpande, Status: Pen, Time: 9:00 AM [facility] 250 DO Work Phone: Start: 11-16-2021 FUV, Provider: Summer Deshpande, Status: Pen, Time: 9:00 AM FUV, Provider: Summer Deshpande, Status: Pen, Time: 9:00 AM [facility] 250 DO Work Phone: Immunizations Immunization Date Immunization Notes Care Provider Jayleen browning 02-19-2023 influenza virus vaccine, unspecified formulation ANJELICA NATION [facility] 02-05-2022 Fluzone High-Dose Quadrivalent 0.7 ML Intramuscular Suspension Prefilled Syringe Rinku Encinas Work Phone: [facility] 250 DO Work Phone: 02-05-2022 influenza virus vaccine, unspecified formulation Summer Deshpande [facility] 01-16-2022 SARS-CoV-2 (COVID-19 ) [id number] Summer Longoahim [facility] 03-01-2021 Moderna COVID-19 Vaccine 100 MCG/0.5ML Intramuscular Suspension Rinku Encinas Work Phone: [place] [address] DO Work Phone: 02-21-2021 influenza virus vaccine, unspecified formulation Summer Alvarengaim [facility] 02-21-2021 influenza, high dose seasonal, preservative-free Rinku Encinas Work Phone: [place] [address] DO Work Phone: 12-29-2020 tetanus toxoid, redu ivan diphtheria toxoid, and acellular pertussis vaccine, adsorbed Rinku Encinas Work Phone: [facility] 250 DO Work Phone: 06-22-2020 Moderna COVID-19 Vaccine 100 MCG/0.5ML Intramuscular Suspension Rinku Encinas Work Phone: [facility] 250 DO Work Phone: Comment on above: Reason for Medicatio n: Other (see comment) 05-25-2020 Moderna COVID-19 Vaccine 100 MCG/0.5ML Intramuscular Suspension Rinku Encinas Work Phone: [place] [address] DO Work Phone: Comment on above: Reason for Medicatio n: Other (see comment) 02-08-2020 influenza virus vaccine, unspecified formulation Wheeler Deshpande [facility] 02-08-2020 influenza, high dose seasonal, preservative-free Rinku Encinas Work Phone: [place] [address] DO Work Phone: 05-16-2018 pneumococcal conjuga te vaccine, 13 valent Rinku Sindy Encinas Work Phone: [facility] 05-08-2018 pneumococcal conjuga te vaccine, 13 valent Rinku Sindy LarsonEncinas Work Phone: [place] [address] DO Work Phone: 04-29-2018 influenza virus vaccine, unspecified formulation Rinku Encinas Work Phone: [place] [address] DO Work Phone: 04-28-2018 influenza virus vaccine, unspecified formulation Wheeler Deshpande [facility] 05-08-2017 pneumococcal polysaccharide vaccine, 23 valent Rinku Sindy Encinas Work Phone: [place] [address] DO Work Phone: 02-27-2017 influenza virus vaccine, unspecified formulation Rinku Encinas Work Phone: [place] [address] DO Work Phone: 02-16-2017 influenza virus vaccine, unspecified formulation Wheeler Deshpande [facility] 02-16-2017 influenza, seasonal, injectable, preservative free Rinku R Encinas Work Phone: [place] [address] DO Work Phone: 05-08-2016 influenza virus vaccine, unspecified formulation Rinku Encinas Work Phone: [place] [address] DO Work Phone: 01-30-2016 influenza virus vaccine, unspecified formulation Wheeler Deshpande [facility] 01-30-2016 influenza, seasonal, injectable Rinku Encinas Work Phone: [place] [address] DO Work Phone: 01-30-2016 pneumococcal polysaccharide vaccine, 23 valent Rinku Encinas Work Phone: [facility] 03-29-2015 pneumococcal vaccine , unspecified formulation Rinku Encinas Work Phone: [place] [address] DO Work Phone: 02-27-2015 influenza virus vaccine, unspecified formulation Rinku Encinas Work Phone: [place] [address] DO Work Phone: 02-22-2015 influenza virus vaccine, unspecified formulation Wheeler Deshpande [facility] 04-16-2014 pneumococcal polysaccharide vaccine, 23 valent Reji Dickinson [facility] Comment on above: Early/Late Reason: N nikolaying Judgment 03-03-2014 influenza virus vaccine, unspecified formulation Rinku Encinas Work Phone: [place] [address] DO Work Phone: 02-16-2014 influenza virus vaccine, unspecified formulation Wheeler Deshpande [facility] 02-16-2014 influenza, seasonal, injectable Rinku Encinas Work Phone: [facility] 250 DO Work Phone: 02-18-2013 influenza virus vaccine, unspecified formulation Wheeler Deshpande [facility] 02-18-2013 influenza, high dose seasonal, preservative-free Rinku Encinas Work Phone: [place] [address] DO Work Phone: 01-27-2013 influenza virus vaccine, unspecified formulation Rinku Encinas Work Phone: [place] [address] DO Work Phone: 01-04-2013 zoster vaccine, live Wheeler Deshpande [facility] 12-28-2012 zoster vaccine, live Rinku Encinas Work Phone: [place] [address] DO Work Phone: NEGATED: Highlighted row has not occurred!02-18-2023 influenza virus vaccine, unspecified formulation ANJELICA NATION [facility] Payers Date Payer Category Payer Private Health Insurance [facility] [id number] 2022 Self-pay [id number] 1945 Unknown [id number] 2.16. [id number] 1945 Unknown [id number] 2.16. [id number] 1945 Unknown [id number] 2.16.84 0.1.829219.3.579.2.1259 1945 Unknown [id number] 2.16.840 .1.341687.3.579.2.9 1945 Unknown [id number] 2.16.8 40.1.917839.3.579.2.7 1945 Unknown [id number] 2.16.8 40.1.628791.3.579.2. 1945 Unknown [id number] 2.16.8 40.1.125303.3.579.2. 1945 Unknown [id number] 2.16.8 40.1.895491.3.579.2. 1945 Unknown [id number] 2.16.8 40.1.490872.3.579.2. 1945 Unknown [id number] 2.16.8 40.1.339003.3.579.2 1945 Unknown [id number] 2.16.8 40.1.689533.3.579.2. 1945 Unknown [id number] 2.16.8 40.1.318101.3.579.2. 1945 Unknown [id number] 2.16.8 40.1.433770.3.579.2. 1946 Unknown [id number] 2.16.8 40.1.573324.3.579.2 1946 Unknown [id number] 2.16.8 40.1.198798.3.579.2 1946 Unknown [id number] 2.16.8 40.1.663636.3.579.2 1946 Unknown [id number] 2.16.8 40.1.249507.3.579.2 1945 Unknown [id number] 2.16.8 40.1.337710.3.579.2 1945 Unknown [id number] 2.16.8 40.1.323646.3.579.2.727 1945 Unknown [id number] 2.16.8 40.1.032898.3.579.2.727 Private Health Insurance [facility] [id number] Unknown [employer] Unknown [id number] 2.16.8 40.1.322550.3.579.2.531 Social History Date Type Detail Facility No alcohol use No alcohol use [facility] 250 DO Work Phone: Comment on above: 1-2 cups of coffee; Start: 1945 Sex Assigned At Male [facility] Comment on above: Denies. Sex Assigned At Male [facility] Tobacco smoking status No Smokin g Status Entered [facility] Start: 02-07-2022 End: 05-24-2023 Tobacco smoking status Never smoked tobacco (finding) [facility] Tobacco smoking status Never [facility] Medical Equipment Procedure Code Equipment Code Equipment Origin al Text Equipment Identifier Dates KNEE TOTAL ROBOT ARTHROPLASTY Tulio Vaughan DO 06/27/21 Non Biological Knee R [id number] FDA Start: 06-27-2021 Unknown Unknown 05/09/23 Non Biological Unknown FDA Start: 05-09-2023 FDA Start: 05-09-2023 Unknown Unknown 05/09/23 Non Biological Unknown FDA Start: 05-09-2023 FDA Start: 05-09-2023 Unknown Unknown 05/09/23 Non Biological Unknown FDA Start: 05-09-2023 FDA Start: 05-09-2023 Functional Status Date Assessment Result Facility 05-24-2023 Functional Status N/A [facility] 05-09-2023 Functional Status N/A [facility] 03-18-2023 Functional Status N/A [facility] 03-06-2023 Functional Status N/A [facility] [place] 10-16-2022 Functional Status N/A [facility] 10-03-2022 Functional Status N/A [facility] Robert 06-24-2022 Functional Status N/A [facility] 01-29-2022 Functional Status No [facility] 12-11-2021 Functional Status N/A [facility] Clinical Notes 04-29-2011 to 2023 Note Date & Type Note Facility 2023 Note [id number] [facility] 05-09-2023 Note Endoscopy Care After Procedure Please read the instructions outlined below and refer to this sheet in the next few weeks. These discharge instructions provide you with general information on caring for yourself after you leave the hospital. Your doctor may also give you specific instructions. While your treatment has been planned according to the most current medical practices available, unavoidable complications occasionally occur. If you have any problems or questions after discharge, please call your doctor. ACTIVITY ? You may resume your regular activity but move at a slower pace for the next 24 hours. ? Take frequent rest periods for the next 24 hours. ? Walking will help expel (get rid of) the air and reduce the bloated feeling in your abdomen. ? No driving for 24 hours (because of the anesthesia (medicine) used during the test). ? You may shower. ? Do not sign any important legal documents or operate any machinery for 24 hours (because of the anesthesia used during the test). NUTRITION ? Drink plenty of fluids. ? You may resume your normal diet. ? Begin with a light meal and progress to your normal diet. ? Avoid alcoholic beverages for 24 hours or as instructed by your caregiver. MEDICATIONS ? You may resume your normal medications unless your caregiver tells you otherwise. WHAT YOU CAN EXPECT TODAY ? You may experience abdominal discomfort such as a feeling of fullness or ?gas? pains. FOLLOW-UP ? Your doctor will discuss the results of your test with you. seek immediate medical attention if any of the following occur: ? Excessive nausea (feeling sick to your stomach) and/or vomiting. ? Severe abdominal pain and distention (swelling). ? Trouble swallowing. ? Temperature over 100 F (37.8? C). ? Rectal bleeding or vomiting of blood. Document Released: 11/27/2004 Document Re-Released: 10/07/2006 ExitCare? Patient Information ?2009 [employer]. Colonoscopy Care After Surgery Please read the instructions outlined below and refer to this sheet in the next few weeks. These discharge instructions provide you with general information on caring for yourself after you leave the hospital. Your doctor may also give you specific instructions. While your treatment has been planned according to the most current medical practices available, unavoidable complications occasionally occur. If you have any problems or questions after discharge, please call your doctor. ACTIVITY You may resume your regular activity, but move at a slower pace for the next 24 hours. Take frequent rest periods for the next 24 hours. Walking will help get rid of the air and reduce the bloated feeling in your abdomen (belly). No driving for 24 hours (because of the anesthesia (medicine) used during the test). You may shower. Do not sign any important legal documents or operate any machinery for 24 hours (because of the anesthesia used during the test). NUTRITION Drink plenty of fluids. You may resume your normal diet as instructed by your doctor. Begin with a light meal and progress to your normal diet. Heavy or fried foods are harder to digest and may make you feel nauseated (sick to your stomach). Avoid alcoholic beverages for 24 hours or as instructed. MEDICATIONS You may resume your normal medications unless your doctor tells you otherwise. WHAT YOU CAN EXPECT TODAY Some feelings of bloating in the abdomen. Passage of more gas than usual. Spotting of blood in your stool or on the toilet paper. FOLLOW-UP Your doctor will discuss the results of your test with you. SEEK IMMEDIATE MEDICAL ATTENTION IF: There is more than a spotting of blood in your stool. There is abdominal distention (your abdomen is swollen). There is vomiting. You have a temperature over 101.5 F. There is abdominal pain or discomfort that is severe or gets worse throughout the day. Diverticulosis Many people have small pouches in their colon called diverticulum. The diverticulum bulge outward through weak spots in the colon. You could have one or more of these pouches in the colon. The condition of having these pouches in the colon is called diverticulosis or diverticular disease. Diverticulosis is usually diagnosed by tests to evaluate something else. For example, you may have had a colonoscopy to screen for colon cancer when the diverticulosis was found. Most people with diverticulosis do not have any discomfort or problems. If symptoms develop, they may include mild cramps, bloating, and constipation. A complication of this condition is called diverticulitis. This is when the diverticulum become inflamed and infected. How to treat diverticulosis: Increasing the amount of fiber in the diet may reduce symptoms of diverticulosis and prevent complications such as diverticulitis (infected diverticuli). Fiber keeps stool soft and lowers pressure inside the colon so that bowel contents can move through easily. You (more content not included)... [facility] 05-09-2023 Hospital Discharg e instructions Patient Education 05/09/2023 10:37:16 Endoscopy, Care After Procedure [facility] Endoscopy Care After Procedure Please read the instructions outlined below and refer to this sheet in the next few weeks. These discharge instructions provide you with general information on caring for yourself after you leave the hospital. Your doctor may also give you specific instructions. While your treatment has been planned according to the most current medical practices available, unavoidable complications occasionally occur. If you have any problems or questions after discharge, please call your doctor. ACTIVITY You may resume your regular activity but move at a slower pace for the next 24 hours. Take frequent rest periods for the next 24 hours. Walking will help expel (get rid of) the air and reduce the bloated feeling in your abdomen. No driving for 24 hours (because of the anesthesia (medicine) used during the test). You may shower. Do not sign any important legal documents or operate any machinery for 24 hours (because of the anesthesia used during the test). NUTRITION Drink plenty of fluids. You may resume your normal diet. Begin with a light meal and progress to your normal diet. Avoid alcoholic beverages for 24 hours or as instructed by your caregiver. MEDICATIONS You may resume your normal medications unless your caregiver tells you otherwise. WHAT YOU CAN EXPECT TODAY You may experience abdominal discomfort such as a feeling of fullness or gas pains. FOLLOW-UP Your doctor will discuss the results of your test with you. SEEK IMMEDIATE MEDICAL ATTENTION IF ANY OF THE FOLLOWING OCCUR: Excessive nausea (feeling sick to your stomach) and/or vomiting. Severe abdominal pain and distention (swelling). Trouble swallowing. Temperature over 100 F (37.8 C). Rectal bleeding or vomiting of blood. Document Released: 11/27/2004 Document Re-Released: 10/07/2006 [employer] Patient Information 2010 [employer]. 05/09/2023 10:37:12 Siu's Esophagus Siu's Esophagus Siu's esophagus occurs when the tissue that lines the esophagus changes or becomes damaged. The esophagus is the tube that carries food from the throat to the stomach. With Siu's esophagus, the cells that line the esophagus are replaced by cells that are similar to the lining of the intestines (intestinal metaplasia). Siu's esophagus itself may not cause any symptoms. However, many people who have Siu's esophagus also have gastroesophageal reflux disease (GERD), which may cause symptoms such as heartburn. Over time, a few people with this condition may develop cancer of the esophagus. Treatment may include medicines, procedures to destroy the abnormal cells, or surgery. What are the causes? The exact cause of this condition is not known. In some cases, the condition develops from damage to the lining of the esophagus caused by gastroesophageal reflux disease (GERD). GERD occurs when stomach acids flow up from the stomach into the esophagus. Frequent symptoms of GERD may cause intestinal metaplasia or cause cell changes (dysplasia). What increases the risk? You are more likely to develop this condition if you: Have GERD. Are male. Are of descent. Are obese. Are older than 50. Have a hiatal hernia. This is a condition in which part of your stomach bulges into your chest. Smoke. What are the signs or symptoms? People with Siu's esophagus often have no symptoms. However, many people with this condition also have GERD. Symptoms of GERD may include: Heartburn. Difficulty swallowing. Dry cough. How is this diagnosed? This condition may be diagnosed based on: Results of an upper gastrointestinal endoscopy. For this exam, a thin, flexible tube with a light and a camera on the end (endoscope) is passed down your esophagus. Your health care provider can view the inside of your esophagus during this procedure. Results of a biopsy. For this procedure, several tissue samples are removed (biopsy) from your esophagus to look at under a microscope. They are then checked for intestinal metaplasia or dysplasia. How is this treated? Treatment for this condition may include: Medicines (proton pump inhibitors, or PPIs) to decrease or stop GERD. Periodic endoscopic exams to make sure that cancer is not developing. A procedure or surgery for dysplasia. This may include: ?Removal or destruction of abnormal cells. ?Removal of part of the esophagus. Follow these instructions at home: Eating and drinking Eat more fruits and vegetables. Avoid fatty foods. Eat small, frequent meals instead of large meals. Avoid foods that cause heartburn. These foods include: ?Coffee and alcoholic drinks. ?Tomatoes and foods made with tomatoes. ?[place] or spicy foods. ?Chocolate and peppermint. Do not drink alcohol. General instructions Take davi-mea-blntveo and prescription medicines only as told by your health care provider. Do not use any products that contain nicotine or tobacco, such as cigarettes, e-cigarettes, and chewing tobacco. If you need help quitting, ask your health care provider. If you are being treated for GERD, make sure you take medicines and follow all instructions as told by your health care provider. Keep all follow-up visits as told by your health care provider. This is important. Contact a health care provider if: You have heartburn or GERD symptoms. You have difficulty swallowing. Get help right away if: You have chest pain. You are unable to swallow. You vomit blood or material that looks like coffee grounds. Your stool (feces) is bright red or dark. These symptoms may represent a serious problem that is an emergency. Do not wait to see if the symptoms will go away. Get medical help right away. Call your local emergency services (911 in the [place] Do not drive yourself to the hospital. Summary Siu's esophagus occurs when the tissue that lines the esophagus changes or becomes damaged. Siu's esophagus may be diagnosed with an upper gastrointestinal endoscopy and a biopsy. Treatment may include medicines, procedures to remove abnormal cells, or surgery. Follow your health care provider's instructions about what to eat and drink, what medicines to take, and when to call for help. This information is not intended to replace advice given to you by your health care provider. Make sure you discuss any questions you have with your health care provider. Document Revised: 07/02/2020 Document Reviewed: 07/02/2020 [employer] Patient Education 2022 [employer]. 05/09/2023 10:36:59 Esophagitis Esophagitis Esophagitis is inflammation of the esophagus. The esophagus is the tube that carries food from the mouth to the stomach. Esophagitis can cause soreness or pain in the esophagus. This condition can make it difficult and painful to swallow. What are the causes? Most causes of esophagitis are not serious. Common causes of this condition include: Gastroesophageal reflux disease (GERD). This is when stomach contents move back up into the esophagus (reflux). Repeated vomiting. An allergic reaction, especially caused by food allergies (eosinophilic esophagitis). Injury to the esophagus by swallowing large pills with or without water, or swallowing certain types of medicines. Swallowing harmful chemicals, such as household cleaning products. Drinking a lot of alcohol. An infection of the esophagus. This most often occurs in people who have a weakened immune system. Radiation or chemotherapy treatment for cancer. Certain diseases such as sarcoidosis, Crohn's disease, and scleroderma. What are the signs or symptoms? Symptoms of this condition include: Difficult or painful swallowing. Pain with swallowing acidic liquids, such as citrus juices. You may also have pain when you burp. Chest pain and difficulty breathing. Nausea and vomiting. Pain in the abdomen. Weight loss. Ulcers in the mouth and white patches in the mouth (candidiasis). Fever. Coughing up blood or vomiting blood. Stool that is black, tarry, or bright red. How is this diagnosed? This condition may be diagnosed based on your medical history and a physical exam. You may also have other tests, including: A test to examine your esophagus and stomach with a small flexible tube with a camera (endoscopy). A test that measures the acidity level in your esophagus. A test that measures how much pressure is on your esophagus. A barium swallow or modified barium swallow to show the shape, size, and functioning of your esophagus. Allergy tests. How is this treated? Treatment for this condition depends on the cause of your esophagitis. In some cases, steroids or other medicines may be given to help relieve your symptoms or to treat the underlying cause of your condition. You may have to make some lifestyle changes, such as: Avoiding alcohol. Quitting any products that contain nicotine or tobacco. These products include cigarettes, chewing tobacco, and vaping devices, such as e-cigarettes. If you need help quitting, ask your health care provider. Changing your diet. Exercising. Changing your sleep habits and your sleep environment. Follow these instructions at home: Medicines Take xiff-hrt-vavuwdk and prescription medicines only as told by your health care provider. Do not take aspirin, ibuprofen, or other NSAIDs unless your health care provider told you to do so. If you have trouble taking pills: ?Use a pill splitter to decrease the size of the pill. This will decrease the chance of the pill getting stuck or injuring your esophagus. ?Drink water after you take a pill. Eating and drinking Avoid foods and drinks that seem to make your symptoms worse. Follow a diet as recommended by your health care provider. This may involve avoiding foods and drinks such as: ?Coffee and tea, with or without caffeine. ?Drinks that contain alcohol. ?Energy drinks and sports drinks. ?Carbonated drinks or sodas. ?Chocolate and cocoa. ?Peppermint and mint flavorings. ?Garlic and onions. ?Horseradish. ?Spicy and acidic foods, including peppers, chili powder, reed powder, vinegar, hot sauces, and barbecue sauce. ?[place] fruit juices and citrus fruits, such as oranges, mati, and limes. ?Tomato-based foods, such as red sauce, chili, salsa, and pizza with red sauce. ?Fried and fatty foods, such as donuts, bulgarian fries, potato chips, and high-fat dressings. ?High-fat meats, such as hot dogs and fatty cuts of red and white meats, such as rib eye steak, sausage, ham, and murillo. ?High-fat dairy items, such as whole milk, butter, and cream cheese. Lifestyle Eat small, frequent meals instead of large meals. Avoid drinking large amounts of liquid with your meals. Avoid eating meals during the 2 3 hours before bedtime. Avoid lying down right after you eat. Do not exercise right after you eat. Do not use any products that contain nicotine or tobacco. These products include cigarettes, chewing tobacco, and vaping devices, such as e-cigarettes. If you need help quitting, ask your health care provider. General instructions Pay attention to any changes in your symptoms. Let your health care provider know about them. Wear loose-fitting clothing. Do not wear anything tight around your waist that causes pressure on your abdomen. Raise (elevate) the head of your bed about 6 inches (15 cm). You may need to use a wedge to do this. Try relaxation strategies such as yoga, deep breathing, or meditation to manage stress. If you need help reducing stress, ask your health care provider. If you are overweight, reduce your weight to an amount that is healthy for you. Ask your health care provider for guidance about a safe weight loss goal. Keep all follow-up visits. This is important. Contact a health care provider if: You have new symptoms. You have unexplained weight loss. You have difficulty swallowing, or it hurts to swallow. You have wheezing or a cough that does not go away. Your symptoms do not improve with treatment. You have frequent heartburn for more than two weeks. Get help right away if: You have sudden severe pain in your arms, neck, jaw, teeth, or back. You suddenly feel sweaty, dizzy, or light-headed. You have chest pain or shortness of breath. You vomit and the vomit is green, yellow, or black, or it looks like blood or coffee grounds. Your stool is red, bloody, or black. You have a fever. You cannot swallow, drink, or eat. These symptoms may represent a serious problem that is an emergency. Do not wait to see if the symptoms will go away. Get medical help right away. Call your local emergency services (911 in the [place] Do not drive yourself to the hospital. Summary Esophagitis is inflammation of the esophagus. Most causes of esophagitis are not serious. Follow your health care provider's instructions about eating and drinking. Contact a health care provider if you have new symptoms, have weight loss, or coughing that does not stop. Get help right away if you have severe pain in the arms, neck, jaw, teeth, or back, or if you have chest pain, shortness of breath, or fever. This information is not intended to replace advice given to you by your health care provider. Make sure you discuss any questions you have with your health care provider. Document Revised: 10/24/2020 Document Reviewed: 10/24/2020 [employer] Patient Education 2022 [employer]. 05/09/2023 10:36:53 Gastritis, Adult, Iqhs-lk-Ewcq Gastritis, Adult Gastritis is irritation and swelling (inflammation) of the stomach. There are two kinds of gastritis: Acute gastritis. This kind develops quickly. Chronic gastritis. This kind is much more common. It develops slowly and lasts for a long time. It is important to get help for this condition. If you do not get help, your stomach can bleed, and you can get sores (ulcers) in your stomach. What are the causes? This condition may be caused by: Germs that get to your stomach and cause an infection. Drinking too much alcohol. Medicines you are taking. Having too much acid in the stomach. Having a disease of the stomach. Other causes may include: An allergic reaction. Some cancer treatments (radiation). Smoking cigarettes or using products that contain nicotine or tobacco. In some cases, the cause of this condition is not known. What increases the risk? Having a disease of the intestines. Having Crohn's disease. Using aspirin or ibuprofen and other NSAIDs to treat other conditions. Stress. What are the signs or symptoms? Pain in your stomach. A burning feeling in your stomach. Feeling like you may vomit (nauseous). Vomiting or vomiting blood. Feeling too full after you eat. Weight loss. Bad breath. Blood in your poop (stool). In some cases, there are no symptoms. How is this treated? This condition is treated with medicines. The medicines that are used depend on what caused the condition. You may be given: Antibiotic medicine, if your condition was caused by an infection from germs. H2 blockers and similar medicines, if your condition was caused by too much acid in the stomach. Treatment may also include stopping the use of certain medicines, such as aspirin or ibuprofen. Follow these instructions at home: Medicines Take vogj-umu-isiozop and prescription medicines only as told by your doctor. If you were prescribed an antibiotic medicine, take it as told by your doctor. Do not stop taking it even if you start to feel better. Alcohol use Do not drink alcohol if: ?Your doctor tells you not to drink. ?You are , may be , or are planning to become . If you drink alcohol: ?Limit your use to: ?0 1 drink a day for women. ?0 2 drinks a day for men. ?Know how much alcohol is in your drink. In the [place] one drink equals one 12 oz bottle of beer (355 mL), one 5 oz glass of wine (148 mL), or one 1 oz glass of hard liquor (44 mL). General instructions Eat small meals often, instead of large meals. Avoid foods and drinks that make you feel worse. Drink enough fluid to keep your pee (urine) pale yellow. Talk with your doctor about ways to manage stress. You can exercise or do deep breathing, meditation, or yoga. Do not smoke or use any products that contain nicotine or tobacco. If you need help quitting, ask your doctor. Keep all follow-up visits. Contact a doctor if: Your symptoms get worse. Your stomach pain gets worse. Your symptoms go away and then come back. You have a fever. Get help right away if: You vomit blood or something that looks like coffee grounds. You have black or dark red poop. You throw up any time you try to drink fluids. These symptoms may be an emergency. Get help right away. Call your local emergency services (911 in the [place] Do not wait to see if the symptoms will go away. Do not drive yourself to the hospital. Summary Gastritis is irritation and swelling (inflammation) of the stomach. You must get help for this condition. If you do not get help, your stomach can bleed, and you can get sores (ulcers) in your stomach. You can be treated with medicines for germs or medicines to block too much acid in your stomach. This information is not intended to replace advice given to you by your health care provider. Make sure you discuss any questions you have with your health care provider. Document Revised: 08/19/2021 Document Reviewed: 08/19/2021 [employer] Patient Education 2022 [employer]. 05/09/2023 10:36:47 Hiatal Hernia Hiatal Hernia A hiatal hernia occurs when part of the stomach slides above the muscle that separates the abdomen from the chest (diaphragm). A person can be born with a hiatal hernia (congenital), or it may develop over time. In almost all cases of hiatal hernia, only the top part of the stomach pushes through the diaphragm. Many people have a hiatal hernia with no symptoms. The larger the hernia, the more likely it is that you will have symptoms. In some cases, a hiatal hernia allows stomach acid to flow back into the tube that carries food from your mouth to your stomach (esophagus). This may cause heartburn symptoms. The development of heartburn symptoms may mean that you have a condition called gastroesophageal reflux disease (GERD). What are the causes? This condition is caused by a weakness in the opening (hiatus) where the esophagus passes through the diaphragm to attach to the upper part of the stomach. A person may be born with a weakness in the hiatus, or a weakness can develop over time. What increases the risk? This condition is more likely to develop in: Older people. Age is a major risk factor for a hiatal hernia, especially if you are over the age of 50. women. People who are overweight. People who have frequent constipation. What are the signs or symptoms? Symptoms of this condition usually develop in the form of GERD symptoms. Symptoms include: Heartburn. Upset stomach (indigestion). Trouble swallowing. Coughing or wheezing. Wheezing is making high-pitched whistling sounds when you breathe. Sore throat. Chest pain. Nausea and vomiting. How is this diagnosed? This condition may be diagnosed during testing for GERD. Tests that may be done include: X-rays of your stomach or chest. An upper gastrointestinal (GI) series. This is an X-ray exam of your GI tract that is taken after you swallow a chalky liquid that shows up clearly on the X-ray. Endoscopy. This is a procedure to look into your stomach using a thin, flexible tube that has a tiny camera and light on the end of it. How is this treated? This condition may be treated by: Dietary and lifestyle changes to help reduce GERD symptoms. Medicines. These may include: ?Cegq-sya-wphwsnh antacids. ?Medicines that make your stomach empty more quickly. ?Medicines that block the production of stomach acid (H2 blockers). ?Stronger medicines to reduce stomach acid (proton pump inhibitors). Surgery to repair the hernia, if other treatments are not helping. If you have no symptoms, you may not need treatment. Follow these instructions at home: Lifestyle and activity Do not use any products that contain nicotine or tobacco. These products include cigarettes, chewing tobacco, and vaping devices, such as e-cigarettes. If you need help quitting, ask your health care provider. Try to achieve and maintain a healthy body weight. Avoid putting pressure on your abdomen. Anything that puts pressure on your abdomen increases the amount of acid that may be pushed up into your esophagus. ?Avoid bending over, especially after eating. ?Raise the head of your bed by putting blocks under the legs. This keeps your head and esophagus higher than your stomach. ?Do not wear tight clothing around your chest or stomach. ?Try not to strain when having a bowel movement, when urinating, or when lifting heavy objects. Eating and drinking Avoid foods that can worsen GERD symptoms. These may include: ?Fatty foods, like fried foods. ?[place] fruits, like oranges or lemon. ?Other foods and drinks that contain acid, like orange juice or tomatoes. ?Spicy food. ?Chocolate. Eat frequent small meals instead of three large meals a day. This helps prevent your stomach from getting too full. ?Eat slowly. ?Do not lie down right after eating. ?Do not eat 1 2 hours before bed. Do not drink beverages with caffeine. These include cola, coffee, cocoa, and tea. Do not drink alcohol. General instructions Take eauf-iux-rpknmbm and prescription medicines only as told by your health care provider. Keep all follow-up visits. Your health care provider will want to check that any new prescribed medicines are helping your symptoms. Contact a health care provider if: Your symptoms are not controlled with medicines or lifestyle changes. You are having trouble swallowing. You have coughing or wheezing that will not go away. Your pain is getting worse. Your pain spreads to your arms, neck, jaw, teeth, or back. You feel nauseous or you vomit. Get help right away if: You have shortness of breath. You vomit blood. You have bright red blood in your stools. You have black, tarry stools. These symptoms may be an emergency. Get help right away. Call 911. Do not wait to see if the symptoms will go away. Do not drive yourself to the hospital. Summary A hiatal hernia occurs when part of the stomach slides above the muscle that separates the abdomen from the chest. A person may be born with a weakness in the hiatus, or a weakness can develop over time. Symptoms of a hiatal hernia may include heartburn, trouble swallowing, or sore throat. Management of a hiatal hernia includes eating frequent small meals instead of three large meals a day. Get help right away if you vomit blood, have bright red blood in your stools, or have black, tarry stools. This information is not intended to replace advice given to you by your health care provider. Make sure you discuss any questions you have with your health care provider. Document Revised: 06/12/2022 Document Reviewed: 06/12/2022 [employer] Patient Education 2022 [employer]. 05/09/2023 10:36:43 Colonoscopy, Care After Surgery [facility] ([facility]) Colonoscopy Care After Surgery Please read the instructions outlined below and refer to this sheet in the next few weeks. These discharge instructions provide you with general information on caring for yourself after you leave the hospital. Your doctor may also give you specific instructions. While your treatment has been planned according to the most current medical practices available, unavoidable complications occasionally occur. If you have any problems or questions after discharge, please call your doctor. ACTIVITY You may resume your regular activity, but move at a slower pace for the next 24 hours. Take frequent rest periods for the next 24 hours. Walking will help get rid of the air and reduce the bloated feeling in your abdomen (belly). No driving for 24 hours (because of the anesthesia (medicine) used during the test). You may shower. Do not sign any important legal documents or operate any machinery for 24 hours (because of the anesthesia used during the test). NUTRITION Drink plenty of fluids. You may resume your normal diet as instructed by your doctor. Begin with a light meal and progress to your normal diet. Heavy or fried foods are harder to digest and may make you feel nauseated (sick to your stomach). Avoid alcoholic beverages for 24 hours or as instructed. MEDICATIONS You may resume your normal medications unless your doctor tells you otherwise. WHAT YOU CAN EXPECT TODAY Some feelings of bloating in the abdomen. Passage of more gas than usual. Spotting of blood in your stool or on the toilet paper. FOLLOW-UP Your doctor will discuss the results of your test with you. SEEK IMMEDIATE MEDICAL ATTENTION IF: There is more than a spotting of blood in your stool. There is abdominal distention (your abdomen is swollen). There is vomiting. You have a temperature over 101.5 F. There is abdominal pain or discomfort that is severe or gets worse throughout the day. 05/09/2023 10:36:42 Colon Polyps Colon Polyps Colon polyps are tissue growths inside the colon, which is part of the large intestine. They are one of the types of polyps that can grow in the body. A polyp may be a round bump or a mushroom-shaped growth. You could have one polyp or more than one. Most colon polyps are noncancerous (benign). However, some colon polyps can become cancerous over time. Finding and removing the polyps early can help prevent this. What are the causes? The exact cause of colon polyps is not known. What increases the risk? The following factors may make you more likely to develop this condition: Having a family history of colorectal cancer or colon polyps. Being older than 45 years of age. Being younger than 45 years of age and having a significant family history of colorectal cancer or colon polyps or a genetic condition that puts you at higher risk of getting colon polyps. Having inflammatory bowel disease, such as ulcerative colitis or Crohn's disease. Having certain conditions passed from parent to child (hereditary conditions), such as: ?Familial adenomatous polyposis (FAP). ?Rg syndrome. ?Turcot syndrome. ?Peutz Jeghers syndrome. ?MUTYH-associated polyposis (MAP). Being overweight. Certain lifestyle factors. These include smoking cigarettes, drinking too much alcohol, not getting enough exercise, and eating a diet that is high in fat and red meat and low in fiber. Having had childhood cancer that was treated with radiation of the abdomen. What are the signs or symptoms? Many times, there are no symptoms. If you have symptoms, they may include: Blood coming from the rectum during a bowel movement. Blood in the stool (feces). The blood may be bright red or very dark in color. Pain in the abdomen. A change in bowel habits, such as constipation or diarrhea. How is this diagnosed? This condition is diagnosed with a colonoscopy. This is a procedure in which a lighted, flexible scope is inserted into the opening between the buttocks (anus) and then passed into the colon to examine the area. Polyps are sometimes found when a colonoscopy is done as part of routine cancer screening tests. How is this treated? This condition is treated by removing any polyps that are found. Most polyps can be removed during a colonoscopy. Those polyps will then be tested for cancer. Additional treatment may be needed depending on the results of testing. Follow these instructions at home: Eating and drinking Eat foods that are high in fiber, such as fruits, vegetables, and whole grains. Eat foods that are high in calcium and vitamin D, such as milk, cheese, yogurt, eggs, liver, fish, and broccoli. Limit foods that are high in fat, such as fried foods and desserts. Limit the amount of red meat, precooked or cured meat, or other processed meat that you eat, such as hot dogs, sausages, murillo, or meat loaves. Limit sugary drinks. Lifestyle Maintain a healthy weight, or lose weight if recommended by your health care provider. Exercise every day or as told by your health care provider. Do not use any products that contain nicotine or tobacco, such as cigarettes, e-cigarettes, and chewing tobacco. If you need help quitting, ask your health care provider. Do not drink alcohol if: ?Your health care provider tells you not to drink. ?You are , may be , or are planning to become . If you drink alcohol: ?Limit how much you use to: ?0 1 drink a day for women. ?0 2 drinks a day for men. ?Know how much alcohol is in your drink. In the [place] one drink equals one 12 oz bottle of beer (355 mL), one 5 oz glass of wine (148 mL), or one 1 oz glass of hard liquor (44 mL). General instructions Take ohjs-xjv-kwdhchr and prescription medicines only as told by your health care provider. Keep all follow-up visits. This is important. This includes having regularly scheduled colonoscopies. Talk to your health care provider about when you need a colonoscopy. Contact a health care provider if: You have new or worsening bleeding during a bowel movement. You have new or increased blood in your stool. You have a change in bowel habits. You lose weight for no known reason. Summary Colon polyps are tissue growths inside the colon, which is part of the large intestine. They are one type of polyp that can grow in the body. Most colon polyps are noncancerous (benign), but some can become cancerous over time. This condition is diagnosed with a colonoscopy. This condition is treated by removing any polyps that are found. Most polyps can be removed during a colonoscopy. This information is not intended to replace advice given to you by your health care provider. Make sure you discuss any questions you have with your health care provider. Document Revised: 08/03/2020 Document Reviewed: 08/03/2020 [employer] Patient Education 2022 [employer]. 05/09/2023 10:36:39 Diverticulosis MAGR (CUSTOM) Diverticulosis Many people have small pouches in their colon called diverticulum. The diverticulum bulge outward through weak spots in the colon. You could have one or more of these pouches in the colon. The condition of having these pouches in the colon is called diverticulosis or diverticular disease. Diverticulosis is usually diagnosed by tests to evaluate something else. For example, you may have had a colonoscopy to screen for colon cancer when the diverticulosis was found. Most people with diverticulosis do not have any discomfort or problems. If symptoms develop, they may include mild cramps, bloating, and constipation. A complication of this condition is called diverticulitis. This is when the diverticulum become inflamed and infected. How to treat diverticulosis: Increasing the amount of fiber in the diet may reduce symptoms of diverticulosis and prevent complications such as diverticulitis (infected diverticuli). Fiber keeps stool soft and lowers pressure inside the colon so that bowel contents can move through easily. You should eat 20 to 35 grams of fiber each day. The table below shows the amount of fiber in some foods that you can easily add to your diet. Adding fiber slowly may decrease the bloating and fullness sometimes felt with an immediate high fiber diet. The doctor may also recommend taking a fiber product such as Citrucel or Metamucil once a day. In the past people with diverticulosis were to avoid nuts, corn, and seeds. This has not been found to be true. If you find that certain foods create cramping or bloating, avoid that food. Foods high in fiber include: Fresh fruits, fresh vegetables, legumes (beans), whole wheat bread, bran muffins or cereal, and nuts. See the table below for examples of high fiber foods. Remember, your goal is 20-35 grams per day. Amount of fiber in different foods Food Serving Grams of fiber Fruits Apple (with skin) 1 medium apple 4.4 Banana 1 medium banana 3.1 Oranges 1 orange 3.1 Prunes 1 cup, pitted 12.4 Juices Apple, unsweetened, w/added ascorbic acid 1 cup 0.5 Grapefruit, white, canned, sweetened 1 cup 0.2 Grape, unsweetened, w/added ascorbic acid 1 cup 0.5 Jack 1 cup 0.7 Vegetables Cooked Green beans 1 cup 4.0 Carrots 1/2 cup sliced 2.3 Peas 1 cup 8.8 Potato (baked, with skin) 1 medium potato 3.8 Raw [place] (with peel) 1 cucumber 1.5 Lettuce 1 cup shredded 0.5 Tomato 1 medium tomato 1.5 Spinach 1 cup 0.7 Legumes Baked beans, canned, no salt added 1 cup 13.9 Kidney beans, canned 1 cup 13.6 Schwarz beans, canned 1 cup 11.6 Lentils, boiled 1 cup 15.6 Breads, pastas, flours Bran muffins 1 medium muffin 5.2 Oatmeal, cooked 1 cup 4.0 White bread 1 slice 0.6 Whole-wheat bread 1 slice 1.9 Pasta and rice, cooked Macaroni 1 cup 2.5 Rice, brown 1 cup 3.5 Rice, white 1 cup 0.6 Spaghetti (regular) 1 cup 2.5 Nuts Almonds 1/2 cup 8.7 Peanuts 1/2 cup 7.9 Chart from [facility] 2013. SEEK IMMEDIATE MEDICAL CARE IF: You develop abdominal (belly) pain. An oral temperature above _ 101 F__develops. Repeated vomiting occurs. Blood is being passed in stools (bright red or black tarry stools). You develop any bowel problems or changes which you have not had before. Extra Information: To learn how much fiber and other nutrients are in different foods, visit the [place] Department of Agriculture (USDA) National Nutrient Database at: http://www.nal.usda.gov/fnic/mary dcomp/search/ Created using data from the USDA National Nutrient Database for Standard Reference. Available at http://www.nal.usda.gov/fnic/mary dcomp/search/. Information adapted from: ExitCare Patient Information 2009 [employer]. [employer] 2012 http://www.[employer]/contents /xgvfuqgjdbjh-rfaweey-tbqogc-the -basics 05/09/2023 10:36:37 Hemorrhoids, Yiur-cf-Iino Hemorrhoids Hemorrhoids are swollen veins that may develop: In the butt (rectum). These are called internal hemorrhoids. Around the opening of the butt (anus). These are called external hemorrhoids. Hemorrhoids can cause pain, itching, or bleeding. Most of the time, they do not cause serious problems. They usually get better with diet changes, lifestyle changes, and other home treatments. What are the causes? This condition may be caused by: Having trouble pooping (constipation). Pushing hard (straining) to poop. Watery poop (diarrhea). . Being very overweight (obese). Sitting for long periods of time. Heavy lifting or other activity that causes you to strain. Anal sex. Riding a bike for a long period of time. What are the signs or symptoms? Symptoms of this condition include: Pain. Itching or soreness in the butt. Bleeding from the butt. Leaking poop. Swelling in the area. One or more lumps around the opening of your butt. How is this diagnosed? A doctor can often diagnose this condition by looking at the affected area. The doctor may also: Do an exam that involves feeling the area with a gloved hand (digital rectal exam). Examine the area inside your butt using a small tube (anoscope). Order blood tests. This may be done if you have lost a lot of blood. Have you get a test that involves looking inside the colon using a flexible tube with a camera on the end (sigmoidoscopy or colonoscopy). How is this treated? This condition can usually be treated at home. Your doctor may tell you to change what you eat, make lifestyle changes, or try home treatments. If these do not help, procedures can be done to remove the hemorrhoids or make them smaller. These may involve: Placing rubber bands at the base of the hemorrhoids to cut off their blood supply. Injecting medicine into the hemorrhoids to shrink them. Shining a type of light energy onto the hemorrhoids to cause them to fall off. Doing surgery to remove the hemorrhoids or cut off their blood supply. Follow these instructions at home: Eating and drinking Eat foods that have a lot of fiber in them. These include whole grains, beans, nuts, fruits, and vegetables. Ask your doctor about taking products that have added fiber (fibersupplements). Reduce the amount of fat in your diet. You can do this by: ?Eating low-fat dairy products. ?Eating less red meat. ?Avoiding processed foods. Drink enough fluid to keep your pee (urine) pale yellow. Managing pain and swelling Take a warm-water bath (sitz bath) for 20 minutes to ease pain. Do this 3 4 times a day. You may do this in a bathtub or using a portable sitz bath that fits over the toilet. If told, put ice on the painful area. It may be helpful to use ice between your warm baths. ?Put ice in a plastic bag. ?Place a towel between your skin and the bag. ?Leave the ice on for 20 minutes, 2 3 times a day. General instructions Take ckfm-lmu-xfxjzry and prescription medicines only as told by your doctor. ?Medicated creams and medicines may be used as told. Exercise often. Ask your doctor how much and what kind of exercise is best for you. Go to the bathroom when you have the urge to poop. Do not wait. Avoid pushing too hard when you poop. Keep your butt dry and clean. Use wet toilet paper or moist towelettes after pooping. Do not sit on the toilet for a long time. Keep all follow-up visits as told by your doctor. This is important. Contact a doctor if you: Have pain and swelling that do not get better with treatment or medicine. Have trouble pooping. Cannot poop. Have pain or swelling outside the area of the hemorrhoids. Get help right away if you have: Bleeding that will not stop. Summary Hemorrhoids are swollen veins in the butt or around the opening of the butt. They can cause pain, itching, or bleeding. Eat foods that have a lot of fiber in them. These include whole grains, beans, nuts, fruits, and vegetables. Take a warm-water bath (sitz bath) for 20 minutes to ease pain. Do this 3 4 times a day. This information is not intended to replace advice given to you by your health care provider. Make sure you discuss any questions you have with your health care provider. Document Revised: 10/25/2021 Document Reviewed: 10/25/2021 [employer] Patient Education 2022 [employer] Follow Up Care 03/18/2023 11:12:58 With:Tram DOUGLASS, JESSE Wahl, [facility] Address: [address] Junior, [address] [address] [phone] When: Unknown Comments:Call for any problems. Office to call for follow up appointment. [facility] 05-02-2023 Evaluation note Encounter Date Diagnosis Assessment [...] prescription. A prescription was sent to the [facility] for new supplies throughout the year, as [...] in a timely fashion. Do not smoke. [facility] Other 11-08-2023 Hospital Discharge instructions Patient Education [...] treatment? Where to find more information The [employer]: www.cancer.org [employer]: www.auanet.org Contact a health care [...] provider. Document Revised: 10/09/2021 Document Reviewed: 10/09/2021 [employer] Patient Education 2022 [employer]. Follow Up Care 02/07/2022 09:23:28 With:ANJELICA NATION PA-C, URL Address: [address] [place] [address] [phone] When: Unknown Comments:1 yr w/ PSA [facility] 10-09-2023 Note From: Jane Li I To: [facility] - Administrative; Sent: 11/26/2022 15:31:32 EDT Show up: 01/27/2023 15:31:00 EDT Subject: Colonoscopy Recall Reminder/Recall Please call and schedule in office with Dr. Ugalde/Kera for a surveillance colonoscopy. Patient scheduled for 02/19/[address] Ugalde.[facility] 10-16-2022 Evaluation + Plan noteExtracted from: Title:EU Local Male Cystosco py w/ or w/o UD - FT Author:Todd CRUZ MD Date:10/16/22 Patient: ESTRADA PFEIFFRE Age: 77 years Sex: Male : 1945 Associated Diagnoses: None Author: Todd CRUZ MD Procedure Operative Information Details: Date/ Time: [...] coverage, Follow up arranged. Addendum by Jeremy CRUZ MD on October 16, 2022 9:28 EDT If he develops gross hematuria in the ne ar future, we then will have to do cystoscopy, fulguration, bilateral ureteroscopy and pyeloscopy under anesthesia since we have been unable to do a urogram due to his allergy to IV contrast. Future Appointments Appointment Date:02/13/2023 08:30:00 AM Scheduled Provider:Todd CRUZ MD Location:[facility] Appointment Type:URO Office Visit Diagnostic Tests Pending * UroVysion Fish and Urine Cyto ([facility]) 10/16/22 [facility]06-20-2023 Note [id number]:[id number] 10-16-2022 Hospital Discharge instructions Patient [...] degrees. Follow Up Care 10/09/2022 10:31:36 With:Todd CRUZ Address: [facility] [address] , [place] [address]- Business (1) When: Unknown Comments:Keep scheduled appointment [facility]06-20-2023 NoteCustom Cystoscopy ? Voiding after the [...] if you have a fever over 100 degrees.[facility] 10-03-2022 Hospital Discharge instructions Patient Education 10/03/2022 [...] Follow these instructions at home: Medicines Take hxfv-koe-dpqnury and prescription medicines only as told by [...] or the blood stops without treatment. Take vsgx-nll-kcxzvpr and prescription medicines only as told by your health care provider. Drink enough fluid to keep your urine pale yellow. This information is not intended to replace advice given to you by your health care provider. Make sure you discuss any questions you have with your health care provider. Document Revised: 12/14/2020 Document Reviewed: 12/14/2020 [employer] Patient Education 2022 [employer]. Follow Up Care 09/06/2022 09:26:45 With:ANJELICA NATION PA-C, URL Address: [address] [place] [address] When: Unknown [facility] Hospital Discharge instructions Patient Education 06/24/2022 [...] 11/27/2004 Document Revised: 03/28/2018 Document Reviewed: 03/06/2018 [employer] Patient Education 2020 [employer]. Follow Up Care 06/24/2022 21:38:40 With:Tulio Vaughan Address: [address] [place] [address]- Business (1) When:06/27/2022 With:Rinku Encinas Address: [address] [place] [address]- Business (1) When:Within 3 Day(s) [facility]10-05-2022 Evaluation note* Encounter Date Diagnosis Assessment Notes Treatment Notes Treatment Clinical Notes Jan, Obstructive sleep apnea (ICD-10 - G47.33) Fortunately patient is using and benefiting from treatment. Download was reviewed with patient. His AHI is elevated at 11.7. We will go ahead and increase his pressure settings to 15/8 to eliminate some breakthrough apneas, an order was sent to the [facility] to have these completed. A prescription was also sent to the [facility] for new supplies throughout the year, as [...] of weight loss on KATHY were reviewed. [facility] Other 08-16-2022 Hospital Discharge instructions Patient Education [...] veins using minimally invasive surgery (subfascial endoscopic psychology fellow vein surgery). This method may be used in advanced cases. Follow these instructions at home: Medicines Take and use fxly-cts-wrbwwva and prescription medicines and creams only as [...] 09/01/2009 Document Revised: 10/27/2018 Document Reviewed: 10/27/2018 [employer] Patient Education 2020 [employer]. Follow Up Care 12/11/2021 22:19:17 With:Milla Montoya Address: [address] [place] [id number] Business (1) When:12/14/2021 Comments:Call this vascular surgeon to discuss potential therapies for her varicose veins should they continue to become symptomatic. With:Rinku Encinas Address: [address] [place] [address] [place] [address] Business (1) When:12/14/2021 Comments:Call the office of [...] to the area. Return with further bleeding. [facility]01-01-2012 History general Narrative - Reported* Type Description Date Medical History Hypertension Medical History BPH Medical History severe KATHY Medical History CAD, one stent Medical History prostate cancer 2011 Surgical History Cardiac Stent Placement 04/2011 Surgical History Seed Implant 06/2011 Surgical History Sebaceous Cyst Excised 2008 Hospitalization History see surgical hx [facility] Other Evaluation + Plan note Future Appointments Appointment Date:02/07/2022 08:30:00 AM Scheduled Provider:Todd CRUZ MD Location[facility] [place] Appointment Type:[facility]O [facility] Future Appointments Appointment Date:01/29/2022 09:15:00 AM Scheduled Provider:Milla Montoya MD [facility] Follow Up (FT) Appointment Date:02/07/2022 08:30:00 AM Scheduled Provider:oTdd CRUZ MD Location:[facility] [place] Appointment Type:URO [facility] Future Appointments Appointment Date:02/13/2023 08:30:00 AM Scheduled Provider:Todd CRUZ MD Location:[facility] [place] Appointment Type:URO [facility] Future Appointments Appointment Date:02/13/2023 08:30:00 AM Scheduled Provider:Todd CRUZ MD Location:[facility] [place] Appointment Type:URO Office Visit Future Scheduled Tests Radiology* CT Abdomen/Pelvis w/o Contrast 10/03/22 [facility] evaluation + Plan note Future Appointments Appointment Date:02/13/2023 08:30:00 AM Scheduled Provider:Todd CRUZ MD Location:[facility] [place] [place] Appointment Type:URO Office Visit Diagnostic Tests Pending * Urine Culture 10/03/22 Future Scheduled Tests Radiology* CT Abdomen/Pelvis w/o Contrast 10/03/22 [facility] + [facility] note Future Appointments Appointment Date:10/16/2022 08:30:00 AM Scheduled Provider: Location:[facility] Appointment Type:Urology FT Appointment Date:02/13/2023 08:30:00 AM Scheduled Provider:Todd CRUZ MD Location:[facility] [place] Appointment Type:URO [facility] Future Appointments Appointment Date:02/13/2023 08:30:00 AM Scheduled Provider:Todd CRUZ MD Location:[facility] [place] Appointment Type:URO Office Visit Appointment Date:02/19/2023 03:00:00 PM Scheduled Provider:Zina Ugalde MD Location:[facility] Appointment Type:BAD New Patient [facility] Evaluation + Plan note Future Appointments Appointment Date:02/13/2023 08:30:00 AM Scheduled Provider:Todd CRUZ MD Location:[facility] Appointment Type:URO Office Visit Appointment Date:02/19/2023 03:00:00 PM Scheduled Provider:Zina Ugalde MD Location:[facility] Appointment Type:[facility] New Patient Diagnostic Tests Pending * UroVysion Fish and Urine Cyto ([facility]) 02/06/23 [facility] Future Appointments Appointment Date:03/06/2023 03:00:00 PM Scheduled Provider:ANJELICA NATION PA-C Location:[facility] Appointment Type:URO Office Visit Appointment Date:03/18/2023 10:15:00 AM Scheduled Provider:Zina Ugalde MD Location:[facility] Appointment Type:[facility] Future Appointments Appointment Date:03/18/2023 10:15:00 AM Scheduled Provider:Zina Ugalde MD Location:[facility] Appointment Type:BAD New Patient Appointment Date:03/12/2024 08:30:00 AM Scheduled Provider:ANJELICA NATION PA-C Location:[facility] Appointment Type:URO Office Visit Future Scheduled Tests Laboratory* PSA Total 03/06/24 [facility] Evaluation + Plan note Future Appointments Appointment Date:05/09/2023 10:00:00 AM Scheduled Provider: Keisha:[facility] Appointment Type:Surgery FT Appointment Date:03/12/2024 08:30:00 AM Scheduled Provider:ANJELICA NATION PA-C Location:[facility] Appointment Type:URO Office Visit Future Scheduled Tests Laboratory* PSA Total 03/06/24 * CBC w/ Auto Diff 03/18/23 * Comprehensive Metabolic Panel 03/18/23 [facility] Evaluation + Plan note Future Appointments Appointment Date:03/12/2024 08:30:00 AM Scheduled Provider:ANJELICA NATION PA-C Location:[facility] Appointment Type:URO Office Visit Future Scheduled Tests Laboratory* PSA Total 03/06/24 * CBC w/ Auto Diff 03/18/23 * Comprehensive Metabolic Panel 03/18/23 [facility] Future Appointments Appointment Date:03/12/2024 08:30:00 AM Scheduled Provider:ANJELICA NATION PA-C Location:[facility] Appointment Type:URO Office Visit Future Scheduled Tests Laboratory* PSA Total 03/06/24 [facility] Evaluation noteNo assessment information available [facility] Work Phone: [employer] noteNo InformationNortConemaugh [facility]ers [facility] WikiYou Other Hospital course Narrative No data available for this section [facility] No data available for this section [facility] No data available for this section [facility] Chief Complaint * ESTRADA PFEIFFER is [...] several months ago by vascular surgery at [facility]. Lipid profile from recent testing was reviewed [...] he had venous stripping last year at [facility] * 6. Sleep apnea on CPAP machine [...] he had venous stripping last year at [facility] * 6. Sleep apnea on CPAP machine with compliance. * Summer Deshpande MD, FACC Chief Complaint and Reason for Visit Chief Complaint retitration/possible CSA Chief Complaint Sleep apnea 31-90 da y follow up Chief Complaint Sleep apnea annual f ollow up Advance Directives No Advanced Directives Records Found Advance Directive Response Recorded Date/ Time Advance Directives No October 09 6:06pm Advance Directive Response Recorded Date/ Time Advance Directives No October 09 5:06pm Family History No Family History Records FoundUnknown [...] No data available for this sectionNo InformationNo InformationGoals may be documented in an alternate section No data available for this [...] section and content) DATE CREATED AUTHOR 12/18/2022 [facility] DATE CREATED AUTHOR AUTHOR'S ORGANIZ ATION 12/18/2022 [employer] DATE CREATED AUTHOR AUTHOR'S ORGANIZ ATION 05/09/2023 [facility] DATE CREATED AUTHOR AUTHOR'S ORGANIZ ATION 05/15/2023 [facility] DATE CREATED AUTHOR AUTHOR'S ORGANIZ ATION 05/26/2023 [facility] FOR RECORDS PERTAINING TO PATIENTS WHO ARE [...] BE BASED ON THE PRIMARY CLINICAL RECORDS. [employer] provides no warranty or guarantee of the accuracy or completeness of information in this document.
== END 2023-05-29 13:03 | disposition home or self-care (01) ==
LOC: VC 13:02
PROVIDERS: Family Provider Family Medicine; PCP Radiology Diagnostic Radiology; Visit Provider Radiology Diagnostic Radiology
DX: I83.813 Varicose veins of bilateral lower extremities with pain (principal)
CPT/HCPCS: 36466

== ENCOUNTER 2023-06-05 12:58 | Outpatient (OUT) | payer MEDICARE, SELFPAY ==
--- NOTE | 2023-06-05 13:02 | VEIN_ITS ---
Patient Name: ESTRADA PFEIFFER MR#: [id number] : 1945 Exam Date: 06/05/2023 Ordering Doctor: DR TULIO ROONEY M.D. RADIOLOGY REPORT PROCEDURE: VC EXT VENOUS LT LIMITED COMPARISON: VC EXT VENOUS LT LIMITED, 05/08/2023. VC EXT VENOUS LT LIMITED, 04/03/2023. INDICATIONS: I80.02 Phlebitis of superficial veins of left lower extremity TECHNIQUE: Lower extremity garrido scale and Duplex Doppler evaluation of the deep venous system from the inguinal ligament through the calf veins. FINDINGS: REGION: Left lower extremity. THROMBI: Negative for DVT. 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 COMPRESSIBILITY: Non-compressible segments corresponding to thrombus FLOW: Areas of no flow corresponding to thrombus OTHER: Patent varicose vein distal posterior/medial calf/ankle measures 5.0 mm. 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 Game Artist distal medial lower leg measures 3.0 mm with 4.1s reflux. CONCLUSION: Post ablation occlusion of treated left leg varicose veins Multiple large dilated incompetent perforating veins Dictated by: Tulio Rooney MD on 06/05/2023 at 14:29 Approved by: Tulio Rooney MD on 06/05/2023 at 14:30
--- NOTE | 2023-06-05 13:02 | VEIN_ITS ---
Patient Name: ESTRADA PFEIFFER MR#: [id number] : 1945 Exam Date: 06/05/2023 Ordering Doctor: DR TULIO ROONEY M.D. RADIOLOGY REPORT PROCEDURE: [facility] - OFFICE VISIT FOLLOW UP COMPARISON: [facility], 05/08/2023. [facility], 04/16/2023. PROGRESS NOTES: The patient reports no significant problems of following micro foam chemical ablation of the left leg. The patient did not require oral analgesics with the patient has worn his compression stockings. Physical exam demonstrates multiple thrombosed varicose veins. Residual patent varicose veins are observed. Persistent subcutaneous swelling, improved from his initial exam. No erythema or warmth to suggest cellulitis or thrombophlebitis. No active ulceration Review of the ultrasound performed the same day demonstrates occlusive thrombus extending throughout the treated left leg varicose veins. Multiple large incompetent perforating veins remain measuring up to 5.2 mm. The patient expressed a desire to proceed with treatment of incompetent perforating veins with intravenous laser ablation. [facility] IMPRESSION: 1. Successful ablation of treated left leg varicose veins 2. 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 PLAN: Intravenous laser ablation left leg incompetent perforating veins Nurse notes, history and physical were reviewed and confirmed, see attached forms. The nurse was present throughout the physical exam and consultation Dictated by: Tulio Rooney MD on 06/05/2023 at 14:30 Approved by: Tulio Rooney MD on 06/05/2023 at 14:41
--- OUTSIDE RECORDS SUMMARY | 2023-06-05 13:07 | XMS_ITS | CCD ---
Author Name Unknown Address [address] [place] [address] Organization [facility] Care Team Providers Care Clinical Documentation Clerk Name Role Phone Rinku Encinas Unavailable Unavailable Unavailable DO Rinku Encinas III Primary Care Provider MD Tulio Hinojosa Attending Provider Rinku Encinas III Primary Care Physician Asuncion Gonzales Unavailable Unavailable DO Rinku Encinas III Primary Care Provider Mccormack, SCARFING MACHINE OPERATOR Priscila Attending Provider Mccormack, Priscila Unavailable Unavailable Unavailable Dr. Rinku Encinas III Primary Care Helena Deshpande, Dr. Summer Douglas Referring Linda vailable Jeramy, Dr. Summer Douglas Attending Linda lincoln Deshpande, Dr. Summer Douglas Attending Linda lincoln Encinas III, Dr. Rinku Callahan Primary Care Helena Deshpande, Dr. Summer Douglas Referring Linda vailable DO Rinku Encinas III Primary Care Provider Mccormack, SCARFING MACHINE OPERATOR Priscila Attending Provider Mccormack, Priscila Attending Unavailable [place], Priscila Admitting [...] Unavailable CRUZ, Todd Callahan Attending Unavailable Sarmini, Zina Gallardo Admitting Unavaila [...] Translations: [Iodine SOLN] Drug Allergy Itching, Rash [place] [address] DO Work Phone: (20 sources) Penicillins; Translations: [Penicillins] Allergy to drug (finding) Unknown (qualifier value) [place] [address] DO Work Phone: (12 sources) shellfish, unspecified; Translations: [shellfish] Allergy to substance (finding) Difficulty breathing (finding) [facility] (20 sources) Sulfonamides (Antibiotic); Translations: [Sulfa Drugs] Allergy to drug (finding) Discoloration of skin (finding) [place] [address] DO Work Phone: (19 sources) Calcium Carbonate; Translations: [calcium carbonate] Drug Allergy Swelling, Hives [facility] Comment on above: calcium sulfate (20 sources) Iodine; Translations: [iodine] Drug Allergy Hives, Swelling [facility] (16 sources) Shellfish; Translations: [shellfish] Drug allergy Difficulty breathing (finding) [facility] (19 sources) Fish 1 Propensity to adverse reactions to substance Difficulty breathing (finding) [facility] Comment on above: trout (4 sources) Penicillin Drug Allergy swelling [facility] Other (4 sources) Sulfonamides (Antibiotic) Propensity to adverse reactions rash [facility] [employer] Other (1 source) Calcium; Translations: [Calcium] Drug Allergy [facility] Repository (1 source) Fish - dietary; Translations: [Fish] Propensity to adverse reactions (disorder) [facility] Repository Medications Current Medications Medication [...] constipation, # 40 cap(s), Refills(s) 0, Pharmacy: [facility], 180, cm, 06/06/21 15:55:00 EST, Height/Length Dosing, 113.6, kg, 06/06/21 15:55:00 EST, Weight Dosing Start Date: 06/27/21 Status: Ordered finasteride 5 mg oral tablet (20 sources) 5-alpha Reductase Inhibitor Start: 05-22-2023 End: 06-21-2023 take 1 tablet by mouth once daily finasteride 5 mg Tab 5 mg = 1 tab(s), Oral, Daily, # 90 tab(s), Refills(s) 3, Pharmacy: [facility], 180, cm, 05/09/23 9:28:00 EST, Height/Length Dosing, 112, kg, 05/09/23 9:28:00 EST, Weight Dosing Start Date: 05/22/23 Status: Ordered Start: 05-18-2020 take 1 tablet by dedrick once daily finasteride 5 mg Tab 5 mg = 1 tab(s), Oral, Daily, # 90 tab(s), Refills(s) 3, Pharmacy: [facility], 180, cm, 10/16/22 8:31:00 EDT, [...] day(s), # 180 cap(s), Refills(s) 6, Pharmacy: [facility], 180, cm, 05/09/23 9:28:00 EST, Height/Length [...] 7days, # 40 tab(s), Refills(s) 0, Pharmacy: [facility], 180, cm, 06/06/21 15:55:00 EST, Height/Length [...] completed, # 2 tab(s), Refills(s) 0, Pharmacy: [facility], 180, cm, 10/03/22 13:53:00 EDT, Height/Length [...] [Coronary atherosclerosis of unspecified type of vessel, [place] or graft] 06-27-2021 Chronic Coronary atherosclerosis and [...] ANJELICA NATION PA-C Where: [facility] CBC w/ Auto Diffon 4 Basophil Absolute 0.1 E9/L Normal 0.0-0.2 [facility] Comment on above: Performed By: #### 2 929670, 7024771, 11526377 ####[address] [address] Basophils/100 WBC (Bld) 1.0 % Normal 0.0-2.0 [facility] Comment on above: Performed By: #### 2 954885, 2633044, 47047837 ####[address] [address] Eos Absolute 0.2 E9/L Normal 0.0-0.5 [facility] Comment on above: Performed By: #### 2 544334, 4116761, 03037984 ####[address] [address] Eosinophils/100 WBC (Bld) 2.7 % Normal 0.0-8.0 [facility] Comment on above: Performed By: #### 2 209459, 1799577, 36172865 ####[address] [address] Erythrocyte distribution width (RBC) [Ratio] 13.7 % Normal 10.9-14.2 [facility] Comment on above: Performed By: #### 2 415425, 2207944, 89172262 ####[address] [address] Hematocrit (Bld) [Volume fraction] 40.0 % Normal 37.7-49.0 [facility] Comment on above: Performed By: #### 2 628446, 3553610, 44020157 ####[address] [address] Hemoglobin (Bld) [Mass/Vol] 13.2 g/dL Low 13.5-17.5 [facility] Comment on above: Performed By: #### 2 293940, 9296307, 37242876 ####[address] [address] Lymph Absolute 2.0 E9/L Normal 1.0-4.0 [facility] Comment on above: Performed By: #### 2 439913, 9508190, 19818174 ####[place] [address] [place] [address] Lymphocytes/100 WBC (Bld) 35.0 % Normal 14.0-50.0 [facility] Comment on above: Performed By: #### 2 561460, 4774547, 49376772 ####[address] [address] MCH (RBC) [Entitic mass] 29.1 pg Normal 27.0-34.0 [facility] Comment on above: Performed By: #### 2 687239, 3725119, 92516587 ####[address] [address] MCHC (RBC) [Mass/Vol] 33.0 g/dL Normal 31.4-36.0 [facility] Comment on above: Performed By: #### 2 060650, 3756213, 09221417 ####[address] [address] MCV (RBC) [Entitic vol] 88.3 fL Normal 80.0-100.0 [facility] Comment on above: Performed By: #### 2 308443, 3338164, 64071184 ####[address] [address] Person Absolute 0.6 E9/L Normal 0.2-1.0 [facility] Comment on above: Performed By: #### 2 539357, 4927931, 31024573 ####[address] [address] Monocytes/100 WBC (Bld) 10.1 % Normal 4.0-14.0 [facility] Comment on above: Performed By: #### 2 425467, 0355800, 07059130 ####[address] [address] Neutro Absolute 2.9 E9/L Normal 2.0-7.5 [facility] Comment on above: Performed By: #### 2 271468, 8576088, 90230377 ####[facility] [address] [place] [address] Neutro Auto 51.2 % Normal 36.0-75.0 [facility] Comment on above: Performed By: #### 2 827809, 1061757, 30321044 ####[facility] [address] [place] [address] Platelet 125.0 E9/L Low 150.0-500.0 [facility] Comment on above: Performed By: #### 2 873631, 5466027, 74764651 ####[facility] [address] [place] [address] Platelet mean volume (Bld) [Entitic vol] 10.4 fL Normal 6.4-10.8 [facility] Comment on above: Performed By: #### 2 877415, 3859413, 74246069 ####[facility] [address] [place] [address] RBC 4.5 E12/L Normal 4.3-5.9 [facility] Comment on above: Performed By: #### 2 081793, 0537879, 01047724 ####[facility] [address] [place] [address] WBC 5.7 E9/L Normal 4.0-11.0 [facility] Comment on above: Performed By: #### 2 870910, 2437508, 23882370 ####[facility] [address] [place] [address] CHEMISTRYOrdered By: SYSTEM SYSTEM on 05-24-2023 Albumin [...] 05-24-2023 Albumin [Mass/Vol] 4.2 g/dL Normal 3.3-5.0 [facility] Comment on above: Performed By: #### 2 545239, 0971163, 77835530 ####[facility] [address] [place] [address] Albumin/Globulin [Mass ratio] 1.5 {ratio} Normal 1.1-2.2 [facility] Comment on above: Performed By: #### 2 168513, 3872134, 37161338 ####[facility] [address] [place] [address] Alk Phos 66 Int._Unit/L Normal 21-98 [facility] Comment on above: Performed By: #### 2 318873, 1440991, 46496769 ####[facility] [address] [place] [address] ALT 11 Int._Unit/L Normal 6-46 [facility] Comment on above: Performed By: #### 2 200235, 0033217, 95397734 ####[address] [address] Anion gap [Moles/Vol] 12 mmol/L Normal 6-16 [facility] Comment on above: Performed By: #### 2 034615, 0954673, 74802086 ####[address] [address] AST 16 Int._Unit/L Normal 5-43 [facility] Comment on above: Performed By: #### 2 944556, 4223053, 28632656 ####[address] [address] Bili Total 0.8 mg/dL Normal 0.0-1.1 [facility] Comment on above: Performed By: #### 2 557158, 8047607, 69985751 ####[address] [address] BUN/Creat Ratio 20 No Units Normal 10-20 [facility] Comment on above: Performed By: #### 2 443609, 1525155, 39321446 ####[facility] [address] [place] [address] Calcium [Mass/Vol] 9.2 mg/dL Normal 8.9-11.1 [facility] Comment on above: Performed By: #### 2 040176, 0688744, 26089722 ####[place] [address] [place] [address] Chloride [Moles/Vol] 106 mmol/L Normal 101-111 [facility] Comment on above: Performed By: #### 2 385216, 7835706, 23577812 ####[facility] [address] [place] [address] CO2 [Moles/Vol] 25 mmol/L Normal 21-31 [facility] Comment on above: Performed By: #### 2 679912, 1259697, 48698844 ####[facility] [address] [place] [address] Creatinine [Mass/Vol] 0.9 mg/dL Normal 0.5-1.3 [facility] Comment on above: Performed By: #### 2 068052, 2352200, 39894734 ####[address] [address] Globulin (S) [Mass/Vol] 2.8 g/dL Normal 1.4-4.0 [facility] Comment on above: Performed By: #### 2 006627, 5939112, 05303979 ####[address] [address] Glucose [Mass/Vol] 84 mg/dL Normal 55-199 [facility] Comment on above: Performed By: #### 2 179391, 5305846, 16004289 ####[address] [address] Potassium [Moles/Vol] 4.3 mmol/L Normal 3.5-5.3 [facility] Comment on above: Performed By: #### 2 430987, 8652009, 62713711 ####[place] [address] [place] [address] Protein [Mass/Vol] 7.0 g/dL Normal 6.0-7.8 [facility] Comment on above: Performed By: #### 2 580171, 6111245, 38672104 ####[place] [address] [place] [address] Sodium [Moles/Vol] 139 mmol/L Normal 135-145 [facility] Comment on above: Performed By: #### 2 142475, 0572643, 98179211 ####[facility] [address] [place] [address] Urea nitrogen [Mass/Vol] 18 mg/dL Normal 5-21 [facility] Comment on above: Performed By: #### 2 275038, 7006541, 34676659 ####[facility] [address] [place] [address] Consent for Treatmenton 04-30 Consent for Treatment [id number]#1.00TIFF Normal [facility] Gastroenterology Office/Clin ic Noteon 05-24-2023 [...] cm, GE junction at 34 cm 2. 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 Normal [facility] Comment on above: Result Comment: [...] Normal 80.0 - 100.0 fL Remisol Heme Person Absolute 0.6 E9/L Normal 0.2 - 1.0 [...] 05-24-2023 Reminders - From: Sonya Ricks To: [facility] - Reminders/Recalls; Sent: 05/24/2023 13:48:57 EST Show up: 03/29/2026 13:48:00 EST Subject: Ambulatory Reminder Due Date/Time: 04/29/2026 13:48:00 EST Reminder/Recall Entered by Sonya Ricks on May 24, 2023 13:47:46 EST 05/09/2026 3 year colon recall From: Zina Ugalde MD To: Sonya Ricks; Sent: 05/24/2023 13:36:04 EST Subject: General Message Caller Name: ESTRADA PFEIFFER; Caller Number: Ritika , M 3 years plz Normal [facility] eGFRon 05-24-2023 eGFR 88 mL/min/1.73 m2 Normal >=59 [facility] Comment on above: Order Comment: Order added by Discern Expert. Performed By: #### 2 601760, 2769291, 61654101 ####[facility] [address] [place] [address] Provider Letteron 05-20-2023 Provider Letter (Inserted Image. Linda ble to display) May 20, 2023 ESTRADA PFEIFFER [address] [place] [address] : 1945 Dear Estrada , We have been trying to reach you with no success. It is important that you return our call regarding scheduling a follow up appointment from procedure dated 05-09-23 upon receiving this letter. Also, at the time of your call, please provide us with your current information. Thank you for your prompt attention to this matter. Sincerely, [facility] [phone] Normal [facility] Pathology Reporton Pathology Report [id number]#1.00TIFF Normal [facility] Postoperative Documentson Postoperative Documents [id number]#1.00TIFF Normal [facility] IntraOperative Documentson 0 05-13-2023 IntraOperative Documents [id number]#1.00TIFF Normal [facility] Progress Note-Physicianon Progress Note-Physician Patient: [...] All Problems Urge incontinence / SNOMED CT 352574088 / Confirmed Post-void dribbling / SNOMED CT 067766697 / Confirmed Osteoarthritis / SNOMED CT 9052296207 / Confirmed Obstructive sleep apnea / SNOMED CT 440853772 / Confirmed uses CPAP Obesity 29-OCT-2013 12:37:00<$> / SNOMED CT [id number]-B7W2 211K0I7C / Confirmed Nocturia / SNOMED CT 994357167 / Confirmed Frequent urination / SNOMED CT 852006692 / Confirmed History of colon polyps / SNOMED CT 0450100565 / Confirmed Personal history of prostate cancer / SNOMED CT 1726132108 / Confirmed Bloody stools / SNOMED CT 1337078653 / Confirmed 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 Resolved due to patient discharge. Resolved: Prostate cancer / ICD-9-CM 185 Resolved: HTN (hypertension) / ICD-9-CM 401.9 Resolved: Coronary artery disease / ICD-9-CM 414.00 Histories Procedure history: Cystourethroscopy with dilation of urethral stricture (373942383) on 10/16/2022 at 77 Years. Endovenous laser ablation of varicose vein (2776455496) on 02/15/2022 at 76 Years. Comments: 02/15/2022 11:20 EDT Larry Alicia RN, Gareth A bilateral Total knee replacement (9481788586) on 06/27/2021 at 76 Years. Cysto (61176920) on 06/11/2017 at 72 Years. Comments: 11/18/2018 9:29 Mery Burk 12/02/07, 05/1013, 05/1317 left total knee arthroplasty on 04/13/2016 at 70 Years. left shoulder arthroscopy with extensive glenohumeral debridement, subacromial decompression, partial distal clavicectomy, mini-open rotator cuff repair on 02/23/2014 at 68 Years. Brachytherapy (336562711) on 07/12/2011 at 66 Years. Evolve Laser of Prostate (908296704) on 08/12/2007 at 62 Years. Urodynamics (378087588) on 07/15/2007 at 62 Years. TRUS w/Bx (4244864943) on 05/24/2000 at 55 Years. Comments: 11/18/2018 9:32 Mery Burk 01/23/11 Stented coronary artery (8596672S-[id number]-442 015TS27H5). Cancer of prostate (9430465410). Comments: 02/23/2014 12:37 LARRY Blake RN, [place] radiation seed implant Sleep studies (491567577). Hernia (3519564512). Social History Social & Psychosocial Habits Alcohol [...] adequate air exchange. Cardiovascular: Regular rhythm. Plan [place] [employer]esthesiologists (ASA) physical status classification: Class III. Anesthetic Preoperative Plan: Anesthesia General. [facility] Comment on above: Result Comment: Elec [...] meets criteria ( To home ). Normal [facility] Comment on above: Result Comment: Elec tronically Signed By: Tico Huston Jr, DO\.matt\Date and Time Signed: 05/13/23 11:25 EST Consenton 2023 Consent [id number]#1.00TIFF [facility] Discharge Instructionson Discharge Instructions [id number]#1.00TIFF [facility] Main OR Intraoperative Recor don 2023 Main OR Intraoperative Record IntraOp Document Type FT Summary Primary Physician: Zina Ugalde MD Finalized Date/Time: 05/10/23 09:38:29 Pt. Name: ESTRADA PFEIFFER/Sex: 1945 Male Med Rec #: [id number] Physician: Zina Ugalde MD Financial #: [id number] Pt. Type: O Room/Bed: / Admit/Disch: 05/09/23 [...] Nikhil Becerra RN, Stephani Marroquin Role Performed ENGRAVER BLOCK Slab Stripper - Primary Scrub - Primary Time In [...] in room Last Modified By: Hernan RN, Jessica Becerra RN, Jessica F 05/09/23 10:30:59 F [...] (If Applicable) PreOp Antibiotic No Time Out Herann TAPIA, Jessica Goodwin F, Nikhil Crisostomo CRNA, [...] and tissue Entry 1 Skin Integrity Intact, [place], Warm, and Skin Abnormality No Dry Outcomes Met? Yes Last Modified By (more content not included)... Normal [facility] Consent for Treatmenton 04-29 Consent for Treatment [id number]#1.00TIFF Normal [facility] Discharge Instructionson Discharge Instructions ESTRADA [...] or heavy bleeding Pharmacy Information [facility] [place] Discharge Instructions Discharge Instructions Previously Scheduled Follow-Up Appointments 2023 8:30 AM EST With: ANJELICA NATION PA-C Where: [facility] Comment on above: Result Comment: Francisco echevarriaally [...] hours. Education and Follow-up: Counseled: Patient, Family. [facility] Comment on above: Result Comment: Elec [...] cm, GE junction at 34 cm 2. [place] colored mucosa suggestive of Siu's esophagus, C1M5, [...] cm, GE junction at 34 cm 2. [place] colored mucosa suggestive of Siu's esophagus, C1M5, [...] 30 minutes before breakfast and dinner Normal [facility] Comment on above: Result Comment: Elec tronically Signed By: Zina Ugalde MD\.br\Date and Time Signed: 05/09/23 09:58 EST Other Comment: Aaliyah wilson Attachment - attachment storage system not supported [id number] Can be [facility] Attachment - attachment storage system not supported [id number] Can be viewed in source systemMissing Attachment - attachment storage system not supported [id number] Can be viewed in source systemMissing Attachment - attachment storage system not supported [id number] Can be viewed in source systemMissing Attachment - attachment storage system not supported [id number] Can be viewed [facility] Attachment - attachment storage system not supported [id number] Can be viewed in source systemMissing Attachment - attachment storage system not supported [id number] Can be viewed in source systemMissing Attachment - attachment storage system not supported 4758926 Can be viewed [facility] Attachment - attachment storage system not supported 0991082 Can be viewed in source systemMissing Attachment - attachment storage system not supported 0905237 Can be viewed in source systemMissing Attachment - attachment storage system not supported 1517961 Can be viewed in source system Inpatient Patient Summaryon 05-09-2023 Inpatient Patient Summary [place] [address] [facility] Clinical Discharge Instructions PERSON INFORMATION Name: ESTRADA PFEIFFER PHYSICIANS Admitting Physician: Zina Ugalde MD Attending Physician: Zina Ugalde MD PCP: Rinku Encinas III, DO Discharge Diagnosis: Colon polyps; Dysphagia Comment: PATIENT EDUCATION INFORMATION Instructions: Medication Leaflets: Follow up: Type Location Start Finish State [facility] Office Visit [facility] [place] 03/12/2024 8:30 AM 03/12/2024 8:45 AM Confirmed [...] Tablets By Mouth every day. Comment: Normal [facility] Main OR PACU I Recordon 04-29 Main OR PACU I Record PACU Phase I Document Type FT Summary Primary Physician: Zina Ugalde MD Finalized Date/Time: 05/09/23 11:23:36 Pt. Name: ESTRADA PFEIFFER/Sex: 1945 Male Med Rec #: [id number] Physician: Zina Ugalde MD Financial #: [id number] Pt. Type: O Room/Bed: / Admit/Disch: 05/09/23 [...] Signed By: Minda Alcantar RN 05/09/23 11:23 [facility] Main OR Preoperative Recordo n 05-09-2023 Main OR Preoperative Record Holding Area Document Type FT Summary Primary Physician: Zina Ugalde MD Finalized Date/Time: 05/09/23 09:38:30 Pt. Name: ESTRADA PFEIFFER/Sex: 1945 Male Med Rec #: [id number] Physician: Zina Ugalde MD Financial #: [id number] Pt. Type: O Room/Bed: / Admit/Disch: 05/09/23 [...] By: Ella Jones I 05/09/23 09:38 Normal [facility] Monitor Recordon 05-09-2023 Monitor Record [id number]#1.00TIFF Normal [facility] Monitor Record [id number]#1.00TIFF [facility] Outpatient Surgery Discharge Instructionon 05-09-2023 Outpatient Surgery Discharge Instruction [place] [id number] Patient Discharge Instructions PERSON INFORMATION Name: ESTRADA [...] Location Start Finish State [facility] Office Visit [facility] [place] 03/12/2024 8:30 AM 03/12/2024 8:45 AM Confirmed Pharmacy Information: [facility] You may receive a survey from [employer] asking you to rate your care experience. Your feedback is important and will help us understand what we do well and how we can improve the quality of care we provide to you, your loved ones and our community. It?s an honor to serve you. Thank you for choosing [facility] HERE ARE THE MEDICATION CHANGES THAT OCCURRED [...] day. PATIENT EDUCATION INFORMATION Instructions: Medication Leaflets: [facility] Insurance Correspondenceon 0 05-06-2023 Insurance Correspondence [id number]#1.00TIFF [facility] Ambulatory Visit Summaryon 1 05-18-2022 Ambulatory Visit [...] CASTRO, ANJELICA Meza Where: [facility] [place] Normal [facility] Consent for Procedure/Surger yon 03-18-2023 Consent for Procedure/Surgery [id number]#1.00TIFF [facility] Gastroenterology Office/Clin ic Noteon 03-18-2023 Gastroenterology [...] hematuria History of colon polyps Hx of fdc use of blood thinners Nocturia Obesity 29-OCT-2013 [...] virus vaccine, inactivated 02/05/2022 Recorded SARS-CoV-2 (COVID-19) [id number] 01/16/2022 Recorded SARS-CoV-2 (COVID-19) mRNA-1273 vaccine 03/01/2021 [...] inactivated 02/16/2017 Re (more content not included)... [facility] Comment on above: Result Comment: Elec tronically Signed By: Tram DOUGLASS, Zina Gallardo\.br\Date and Time Signed: 03/18/23 11:03 EST [place] 03-07-2023 Screens [id number]#1.00TIFF [facility] [facility] Patient Educationon 03-06-20 23 Patient Education [...] Where to find more information ? [employer]: www.cancer.org ? [employer]: www.auanet.org Contact a health care [...] flu (more content not included)... Normal [facility] Urology Office/Clinic Noteon 03-06-2023 Urology Office/Clinic [...] on cytol. CT AP wo con 10/11/22 [facility] - no renal or ureteral stones, no [...] Contact Information MATTHEW CASTRO, ANJELICA Meza, URL [address] 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 Normal [facility] Comment on above: Result Comment: Elec tronically Signed By: ANJELICA NATION PA-C\.br\Date and Time Signed: 03/06/23 15:46 EST\.br\Electronically Co-Signed By: Abigail Patricio\.br\Date and Time Co-Signed: 03/06/23 15:43 EST CHEMISTRYOrdered By: SYSTEM SYSTEM on 03-05-2023 Prostate specific Ag [Mass/Vol] ng/mL Normal 0.1 - 3.5 ng/mL [facility] Remisol Comment on above: Interpretive Data: T he concentration of PSA determined by different manufacturers can vary due to differences in assay methods and reagent specificity. Values obtained from different assay methods cannot be used interchangeably. The methodology used for this result was chemiluminescence using [employer] Access Hybritech PSA reagent. Consent for Treatmenton Consent for Treatment [id number]#[id number] Normal [facility] PSA Totalon 03-05-2023 Prostate specific Ag [Mass/Vol] ng/mL Normal 0.1-3.5 [facility] Comment on above: Result Comment: The concentration of PSA determined by different manufacturers can vary due to differences in assay methods and reagent specificity. Values obtained from different assay methods cannot be used interchangeably. The methodology used for this result was chemiluminescence using [employer] Access Hybritech PSA reagent. Performed By: #### 1 [id number] #### [facility] [address] [place] [address] UroVysion Fish and Urine Cyt o ([facility])on 02-12-2023 UVFISH & UC Diagnosis Info Invalid Interpretation Code [facility] Comment on above: Result Comment: [...] correlated with cytology and cystoscopy results.* CPT 10091, 30650. Microscopic Notes - Microscopic Notes - Abnormal cells 9p21 deletions: Abnormal cells aneploid events: Total cells analyzed: Hematuria: Gross Description Site ID:A color Yellow fixative Alcohol Received 100 mls of clear yellow fluid with the patient's name and, Urine on the vial. Electronically signed by : on: 02/12/2023 11:43:23 Performed By: #### 1 [id number] #### [facility] [address] [place] [address] UroVysion Fish and Urine Cyt o ([facility])on 02-06-2023 [facility] Method of Extraction Voided Normal [facility] Comment on above: Performed By: #### 1 [id number] #### [facility] [address] [place] [address] [facility] Number of Jars 1 Invalid Interpretation Code [facility] Comment on above: Performed By: #### 1 [id number] #### [facility] [address] [place] [address] [facility] Specimen Urine Normal [facility] Comment on above: Performed By: #### 1 [id number] #### [facility] [address] [place] [address] [facility] Type of Service Technical Only Normal [facility] Comment on above: Performed By: #### 1 [id number] #### [facility] [address] [place] [address] Physician Orderon 01-30-2023 Physician Order [id number]#1.00CD:127 Normal [facility] Office Visit (Cardiology)on 12-17-2022 Follow-up [...] Weight Tips; Status:Complete - Retrospective Authorization; Done: [id number] Some eating tips that can help you lose weight.; Status:Complete - Retrospective Authorization; Done: [id number] SocHx: Never a smoker Tobacco Use Screening; Status:Complete; Done: [id number] Patient Instructions Please bring all medicines, vitamins, [...] 7:37:38 AM NonMedication Seafood Shortness of breath; [place]; Recorded By: Marissa Guevara; 12/17/2022 1:49:59 PM [...] Recorded: 17Dec2022 01:33PM Heart Rate54, R Radial Hayjunlp488, RUE, Sitting Utzgewgof72, RUE, Sitting Height5 ft 11 in Vrwvkg263 lb 12.8 oz BMI Fxnevtfcmn14.84 kg/m2 BSA Calculated2.32 Tobacco Useb) No F (more content not included)... Normal [employer] Tobacco Screening.on 023 Fall risk assessment a) No falls within the last year Located within [facility] HeartPlaybasis juliet 250 DO Work Phone: Tobacco use status CP b) No Located within [facility] Heart-WalletKit juliet 250 DO Work Phone: Reminderson 11-26-2022 Reminders - From: Sonya Ricks To: [facility] - Reminders/Recalls; Sent: 11/19/2022 15:18:50 EDT Show up: 11/19/2022 15:19:00 EDT Subject: Ambulatory Reminder Reminder/Recall 5 year colon recall forrest roper 11/07 first recall letter Patient called. He is not credentialed with Dr. Ugalde's insurance and is requesting a call back around January. Reminder placed in system. Normal [facility] Patient Letter FTon 2022 Patient Letter [facility] (Inserted Image. Linda ble to display) November 21, 2022 ESTRADA PFEIFFER [address] [place] [address] : 1945 Dear Estrada, This is a reminder that you are due for an appointment with [facility]. Please contact our office at [phone] to schedule an appointment at your earliest convenience. Thank you, [facility] Normal [facility] UroVysion Fish and Urine Cyt o ([facility])on 10-19-2022 UVFISH & UC Diagnosis Info Invalid Interpretation Code [facility] Comment on above: Result Comment: [...] correlated with cytology and cystoscopy results.* CPT 83641, 70349. Microscopic Notes - Microscopic Notes - Abnormal cells 9p21 deletions: Abnormal cells aneploid events: 16 Total cells analyzed: 157 Hematuria: Gross Description Site ID:A color Yellow fixative Alcohol Received 90 mls of clear yellow fluid with the patient's name and, Urine on the vial. Electronically signed by : on: 10/19/2022 11:11:56 Performed By: #### 1 [id number] #### [facility] [address] [place] [address] Consent for Procedure/Surger yon 10-16-2022 Consent for Procedure/Surgery [id number]#1.00CD:127 Normal [facility] Consent for Treatmenton 09-28 Consent for Treatment [id number]#1.00CD:127 Normal [facility] IntraOperative Documentson 0 10-16-2022 IntraOperative Documents [id number]#1.00CD:127 Normal [facility] Main OR Intraoperative Recor don 10-16-2022 Main OR Intraoperative Record IntraOp Document Type FTURO Summary Primary Physician: Todd CRUZ MD Finalized Date/Time: 10/16/22 09:24:11 Pt. Name: ESTRADA PFEIFFER /Sex: 1945 Male Med Rec #: [id number] Physician: Todd CRUZ MD Financial #: [id number] Pt. Type: O Room/Bed: / Admit/Disch: 10/16/22 08:36:10 - Institution: Case Times FTURO Entry 1 Patient Times In Room 10/16/22 09:11:00 Out Room 10/16/22 09:23:00 Procedure Times Start 10/16/22 09:14:00 Stop 10/16/22 09:20:00 Anesthesia Times Last Modified By: Georgia Almonte RN 10/16/22 09:23:53 Case Attendance FTURO Entry 1 Entry 2 Entry 3 Case Attendee Todd CRUZ MD TRANSPORTATION CONSULTANT, Georgia Bowles RN Role Performed Surgeon - Primary Scrub - Primary Slab Stripper - Primary Time In 10/16/22 09:11:00 10/16/22 [...] Signed By: Georgia Almonte RN 10/16/22 09:24 [facility] Main OR Preoperative Recordo n 10-16-2022 Main OR Preoperative Record Holding Area Document Type FTURO Summary Primary Physician: Todd CRUZ MD Finalized Date/Time: 10/16/22 09:17:01 Pt. Name: ESTRADA PFEIFFER Khang Trotter/Sex: 1945 Male Med Rec #: [id number] Physician: Todd CRUZ MD Financial #: [id number] Pt. Type: O Room/Bed: / Admit/Disch: 10/16/22 [...] Comment: left hip area Skin Integrity Intact, [place], Warm, & Dry Vitals - EU Blood Pressure 165/65 Pulse 63 bpm Respirations 20 br/min SPO2 97 % RN Reviewed Yes Last Modified By: Georgia Almonte RN 10/16/22 09:17:00 General Comments: Temp 36.8 Finalized By: Georgia Almonte RN Document Signatures Signed By: Paty Watkins LPN 10/16/22 08:49 Georgia Almonte RN 10/16/22 09:17 Normal [facility] Operative Reporton Operative Report Patient: [...] IV contrast. Normal [facility] Comment on above: Result Comment: Elec tronically Signed By: Todd CRUZ MD\.br\Date and Time Signed: 10/16/22 09:28 EDT Outpatient Surgery Discharge Instructionon 10-16-2022 Outpatient Surgery Discharge Instruction [id number]#1.00CD:127 Normal [facility] UroVysion Fish and Urine Cyt o ([facility])on 10-16-2022 [facility]UC Method of Extraction Cystoscopy Normal [facility] Comment on above: Performed By: #### 1 [id number] #### [facility] [address] [place] [address] [facility] Number of Jars 1 Invalid Interpretation Code [facility] Comment on above: Performed By: #### 1 [id number] #### [facility] [address] [place] [address] [facility] Specimen Cystoscopy Normal [facility] Comment on above: Performed By: #### 1 [id number] #### [facility] [address] [place] [address] [facility] Type of Service Technical Only Normal [facility] Comment on above: Performed By: #### 1 [id number] #### [facility] [address] [place] [address] CT Abdomen/Pelvis w/o Contra ston 10-13-2022 CT [...] No Oral contrast amount in ml's: 0 [facility] Consent for Treatmenton 09-27 Consent for Treatment [id number]#1.00CD:127 [facility] Pre-Certification Formon Pre-Certification Form [id number]#1.00CD:127 [facility] C Urineon 10-05-2022 Bacteria identified Cx [...] Locations R1: This test was performed at: [facility], [address] [place] [address], [facility] , , [facility] Comment on above: Performed By: #### 2 [id number] ####[address] [place] [address] Patient Educationon 10-04-19 23 Patient Education Urology [...] these instructions at home: Medicines ? Take thxl-kuz-cqjimrx and prescription medicines only as told by [...] the blood stops without treatment. ? Take lqha-hem-fiahjwm and prescription medicines only as told by your health care provider. ? Drink enough fluid to keep your urine pale yellow. This information is not intended to replace advice given to you by your health care provider. Make sure you discuss any questions you have with your health care provider. Document Revised: 12/14/2020 Document Reviewed: 12/14/2020 [employer] Patient Education ? 2022 ClearView™ Audio. [facility] Pre-Certification Formon Pre-Certification Form [id number]#1.00CD:127 [facility] Pre-Certification Form [id number]#1.00CD:127 [facility] Provider Letteron 10-03-2022 Provider Letter (Inserted Image. Linda ble to display) Rinku Encinas III [address] [place] [id number] Re: ESTRADA PFEIFFER Date of : [address] Huang BUCHANAN DO, Rinku PFEIFFERESTRADA was evaluated at [facility] Urolog 10/03/2022 As this patient has been [...] Thanks! Provider Signature: Anjelica Nation PA-C Physician Software Solutions Architect [facility] Urology [address] [place] [address] Normal [facility] Comment on above: Other Comment: [...] if +. Abx should be sent to [facility]. -Schedule CT AP wo (iodine allergy) [...] Contact Information MATTHEW CASTRO, ANJELICA Meza, URL 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 Normal [facility] Comment on above: Result Comment: Elec tronically Signed By: ANJELICA NATION PA-C\.br\Date and Time Signed: 10/03/22 14:45 EDT\.br\Electronically Co-Signed By: Nilda Gallagher\.br\Date and Time Co-Signed: 10/03/22 14:28 EDT Coding Summary.on 08-31-2022 Coding Summary. CD:[id number] Ww+PGhlY WQ+UP7HBDJzP22gsASkhH9mA6HVV SiQLufvFYIUVTbFNvEjgjDxIM1rp XNjZXJu IC8+BI0yLPQmRvamwFGao0P3vHO8 D72lfs1hYRxooGR7LXTbSrQmrnjs g6xgzHa2JTuyGdlzYcFx JJApiH06OSU5iL02Ts40lQBefEBk k7qukOw2XcLxGCSnHGK7wXyvSQwi h3ZpNODjN25cnUSki7B7 EOTeeBfzcCBhLmXksMU1tZ1lLQpx facax8fmujbbAbl9rj30qNYti4N5 kTC9R0RdhbL3GDPwgPGp CevicTYPkF2mhjyxm6ptvmsmHwYe EANbTLr2BNc6YKXhbDcaJhQzZY70 VYW7BRFhfxMmV7XpAFMl oEpoCwS2i8J1Ya4OG4BLXuweV9BV TUFSWTwvdGQ+AM48it58J4UsEspi Wuw3RVEvYQP7mMR8qW6i FFSbBQkps2Q7pKE9M6TlhlCuco8l h4xzSBXhRXkwS89ieBWwb6C9DPOq sFP6VMBifTxqEyVyyV02 Oyc+MYZwsOltf3MxWnthh7rni1wb wBg8NkbaHYNthxQanWnxCTD7g9Qu Sn8xQBVjlMH3xNE4gE8v TkLfIqR6PFuqV829JuJmnHRqEmnm E03rW1RipMY+DKDxIwq2SGUslSbo OJ7bB9XcQMVdufiodUBg jYsxZQ8tNWGevdraYLSkbX6gDUUt B0d5WfCpOpK4FXasS9PwNJHrfqhl Kv50zV1zQxZeBaG2FBzh H6VvakM4VBLywONbLFvkNMH4O86k f0V4IQIvCJHxSTB0hZT2qW6vbLda bjogbGVmdDsgdmVydGlj HJohNEjaN363YUYvaDlrNwLtBMst ZyBEYXRlOiAgMDUvMDUvMjAyMzwv dGQ+GEErBWJ6zBszWXSq uZLfOHgsWj0wwHaxlJreUC6lHQYq rxigBVAvlV2wRNGzyRKbrXdoVW1w HWVzmlzub356KeLwMNV6 OWMhaDDfJ8DraB5eLjQzMTXjUWEp S0NwxTXxWFnvU768FBmfDwD2DUIl vrVmP7XaEFIhhSitDaM5 m7H4Dm6Nx8RlcdcbH4IwzZTqQoWu CfrjXNu7H4XrRhibwSU+MR31NIZz JX57AMg6OLN4iImrHRhd NKJaB1BezC0xVzFzZCRoZHAvHzj+ PHRhYmxlIHdpZHRoPScxMDAlJyBz vUpjPZ5eZz7cFSQhWRGy uBsprZUuSrCro9ooQRJxVUtaPI9x pKbwE8WosQF1DFOsc8n5Bz74Z47b E6EfwEA+BUNbaAF6aRY2 gK9oVkSaRcQ5ROnzE978CeZrgQQx Bdnid4adt4gccRg0OgC8LBHksxUu yCukVIQ4t5ViUv66Z14e DOrsCAZnYGSkNFAvANDquXcqhx5d aN2wGk3+NVFeyWG6hDS7rS8rFsGh RfV5RTgrF659ObIqvSNx Zetlq5jhd8kdfJs2UrPzBTTanhAp tWcnVLN9y8RvSu95L2PqlZubx0Gs Qyj5ff63gCDnn8R2rIN5 A0CnPBSmxxwezMNnuFvfZJ3eWJHn bbvhTZBmzL2fUNPhP2h1QtEwVvB5 YLemC9EwvnL4NKAqkGMz PPNsxCLUaW8uzbsxt3zjslejNfXn BANzGUk2BNm5PCNjzHaeQdNuNSM6 CyX7PCZ3sPCanM6kwSfl bxfvcF5tZyx+GRN8sZOwgCZPDR6h OjwvdGQ+DNZvUNL5aLegQIicRMSa lG6vVBFlS5r4DlArVzN6 QFdtP2IwobA7ZHHkcIXfKQSmpKHC oR4oqvqma3zwwiekWiVhSRCeMUi2 NHq1WHNfgBwvBpXlRQZ4 SiT9HFO1fNYtfW5lfLyorhcpeJ6p Oyc+EieexZkuAGK8COy3Q7EiIac7 GJIyiRaiVR9trPWlRQiu Or8hcYcigXhiMQ3dITZhxeyvo694 EwZsi4abNJYftSAlYBllWMQ3W02f o4N3SSDjDSJsXEO6kXX7 xE5ywWmdqjmreBVgqLspevJhhYtc XHemNJdsT305SBQzkXiyDvPyBVi3 Q2MnBwq4TPQjkVvjQB9r lNFbRPgdMi1qeOundUbwHQ7sDKDz rovqv452IuIqj3jhGFAlmCLvAFqp FET5C74nb5Q0URQaAUPj HKQ5uJK4vE4nkWirzhapzXXmsUsl ovOkaTegNVegEZhiV407OICqfPwn MeYuzWu3W0DuLkp7ULIp pIwsBU4diSOnEIrgLa8qkAyboPfn YL0nYDJjovoup946IeLio5xjUKGu uGOgVBfdMBV6Y64hp8E8 GVMbUMYtYWF5pBU5cD2qtZbkyksp rBIraPxdqgCnfEpvEDguEQplG764 IHRvcDsnPlBhdGllbnQg DNbsMUs8T0UkKunawMS+RD92AAUw SK50lEQorASjd8abgJl3UsLeWRUr BVV2lVmmSVqvp0JiMGBg Z24smFFft0S0FJDebQwazIAmMmFb aCD0xZ8dTOjwqozkv1ndqxzbIxnn x5lkex23iL02X25vLFnk ZCGjYUWqPYFbWHCwoApdgh7cxL1z Ii8+AVAyaEN6oTZ8xQ8zDOFxMwW7 DLomP635PxXqcJKuDkta s0yzg7ciiIu4FdW1EXQfnhOibBqo KAO8h4AjHi91S66qRXvvJCCrPDNt CFSdFVVxpYixbg5brV6t Ii8+ECSmkXA3rBA8rY7vZkUsZlZ7 JYosE581VjOhzJMfOkxzQ84rG7Ub dXA+YSYkKye1SNObaAvn AL0fmUFwXOugPz2fYIY5NmXtDdIo OPptH5PrMBOykmjhsgfriWG1SLQq LOWiuH55Bn5vhMabZQUb jUGPxM7cuxjbz7bkapgeXgAzANEv OTl8XTp3SZMvmHwqLdNzJPO0WfW3 TAO7fOYjiL1kbZslnxnv oT3iU6WrILYturkrWh24cP6dSoEs MqG9FMvbNsn+F1WZYDijSGEUH81G MgYEZR55EK77vGBql9X1 eBR9P8IqRLOojhvrrdvbpLE3UJHz EFMueT14kIPeXEnhYs3je1C5o666 BRSwMNGrxM44Gj5meXax ZVAseZMTkV0fbaklq7vvypgcMpKb WZKsJWo3IWy8VQJehHriDiRkHCL8 JgP4BXE8qKZosH3aaWpk rvicbJ9mXvz+DPMjERMrOHw2Uuab dGQ+EIVwJKX0cEkfJPigNRKzmH0n JDHkD6f4WoHdNgA9TSew U7TxKYNfhzzaKm94nW6cJcYfVfC1 AAxrC0JudsZ0UNYgoVSeGEigWQC3 A19gj3G9WWLoCGBrRVO9 hRU8wL0aqUosqnzksJRlgFakfhJg aYrjYXglGOokL393LEMgpKazNze2 MDniWPSqUK35XO14vODi s9D8sFX8E3ArTIMiwyzpgowzjHF5 DJWtWDDcyO29yPUtBYxoEz5pa3V1 d796LIYlJKWboJ12Sc9t lXfcEVXquIJWdY1gcfliy2squyyy TrOjRNZkHOb2KGn7SGExaIxzVzJy JAX6DuH2ZZP6yLPqxJ9u wTnnpfcnsX6oVrh+TWFsZTwvdGQ+ WLDkQIH0sYveCHybGCRggA2pQUKv A9v9OgGwUjC4UMvwM8Db TIQmnjqpVg88oX9mPzHbPwF3EJiz A8QcqhL2JSFnnLEtGKkeLNV7O38c e2O1LKRaKRPtDJZ3tQE9 sK6tcLaxiqumdJOblWcuzcWyzFqc FCnzBLmkX300JIBwtNyfQbSsMXOo DA2apPkkzXW+AR84ta29 U8GxTieiWgs7UHZhATC6qWT1dP3b RSWcBBwku3J6kPB9G9SletEyzj2w q9akFJTqIEviJ05fpEBa e1X1WBWusIJ0NEDawSxaBfJvaS36 Oyc+WLBhgJwyp8HpKiffl9jrw9qo jXv2NmXfTYBvyaYabPgs PPO5e9JjUv80F46wRXasFCToWSBx VRYhKQNbtYvaml7aqQ8bUh4+PGNv wRP3gVF2eP9dQuQhJuJ4 EFnfE715ZcNnxRMbChxlc8dom2xh oXd1JeViQNGnxlYuvOapWCY1o2Ee Ap13I7BvlUclo8AcAmp0 bj70lFCiq3S6gVE1W7PcWHJezbaj bEWjwZdeDK1qJQBmbwyiPBSrbH7g HAXgW3d2BnWcWfK8FOac K7GwxzZ9UVGzoCKrNHKybGAKbM5q psjfr5bcyscuHvLlMJUlLNp9ENp2 THNwpUbqKjUeZLO9BzG9 AJB2yAZliP2lyWohrfkwqR6bBbm+ JHj5e4izlKVxIX8huOU2ZC90KZ03 mUIxu4H3pYH7M5UvLWKn ldbpruyvyMS4TBPwSYCowN13Rp9k oWyjMt0lUNXaCKM2KVDdgDTvA7Xi nE7lHdEgXXGwFGDpK3Yy tUKcLTupE397PWryKaA3JINkaoVv S9EoRXEcbQgeIkH5m4U1Rq4SDM23 OA51UY12rXZgm1N0bGM1 X6UnFGQiwncbigyjoTU7ALRrRNBs dP52Rc7vkSirGf5oKXIhYQO3EZLq aAXzZ1QlkC2gYiLjQJTu NRArR6LfgGEvZRkdK406TMukWyF4 GNQkrpOtI9LrIQPffObrOhJ4a3H5 Wn1RUc13BK19PS83kCSx k7A8wXJ2J8GeDSXksxwchawizJZ5 BSJwYFMriP90Kd8sqFgdJo6cCLLc KXG9EXAswLGcJ1VkhZ4t MhZvLCVnLBDvQ8CphZEnHEroZ703 UXjoNeR9AMIqypVuA8VzCBAzmJph JaF2l8A0Fc1XZWrbtaa7 Y1OoXpybkFQ+RF92GGCzTI74iFTp xQSlo5dlbXo7BwTcKWRpZNF6aUqc VGclk3KrTOWfN54ggFDd m9U1ZXBu (more content not included)... Normal [facility] Coding Summary. CD:030763Jvya77WWs5s Ww+PGhlY WQ+CL7ZSZCzC52tuOSzwF3UO4lEA O8UXZCABIAWBI8RXY9naTR4WNwoA 2VybiAv VrqiySGsCK23TEu6QTT2hRbhUDnd fG2ycHTxG2h0PbAdQM24aO33LRrh UGUsQlQ2GbKmgucazCQi T2qaAyAbzUMcVlh+PHRhYmxlIHdp ZUQpUEojJBGqVbPqjIgmPS0bBk6v ZGVyLWNvbGxhcHNlOiBj w6vsLESjSNwlIU0lnOxfF5MaqUC4 FMQug7h7Sq60mOR+WQPpXNK7wVbp KZpjz900TdTbn2jdSOU5 mOVdSLryPRL5N73lr8N8XQHhMQKn HIA3bMO7wD3amZhrtqvmJ7AbsQEz WiP0QDP4vLLewS0feOaf egjhcV7bBvw+O32GCR9XPNLPOJ4U Geq1R8NmPynelUH+VQ88KMWkJC12 kKVyjBYxl0fkfYd6UpPx XDIxWYM4mPczSKavd4WfRLBkW37s dZTfj3F7XQWdiHucyKFnEaKzkUF0 oT7lMMdqjzsnj6phdtat Slbgz9pucw91dI87N34kUNnnAUWm LZQ5NRJdRBBljSugbe5ujI0mYo1+ VMruh0cpb4uotZc8MmZq WQOsahKzxLxoOKF6e5BgZx13Z9Us nKtdo4RjYhb9xd54kGZam4X7gDO3 VEsfVUIjpM9uVAnpNaE7 KYNbAsWmoU85oJJdLJbbAd6aeZyo oFepNS8xHFMjgkxwXJEpuH3yHKJw zDFdiJotYA5hNHBibuav e531WcMjHYK5GRFcrXIlO4HpeT8s MrNjXAQhZXXjI5OvxAYaFUzpP117 DWyoZhX7DCYeffOuR5Pt LGRdwAhwInW1p8S7Ja8Ck2Fqngvc MCD7GUztBOAlRgMiUmPlIfO3L2Xw Vgv1PJYhlFtfAH9iF8Tb ELWdtmzheobokMU1OVCaEDXpaI56 aCMqTXptEc7kh7P0m826XBGaOPEx qS20Ig7xkWefSQAstXRS tT0bqpvfx2ughjrcIeNwXDCqPSu2 NVu5FWBgkAzlBwCnTJE2VaE7WYH8 gADetS3ojXrmqgaeaV9x Oyc+F72ybX5gJAI2FZU8oktyJZHf mbZbGK98KN90V3SvFuocoTOitTR+ IOIvjoNtgTosJD6nMrHl n9pyf4OeJZdvN2PzKAIdQOvtNsf9 HCEkWXP3wKF3zZ6rOJFrWXfhd4G0 xME8P2EfqtDuwb2zj4xu LFUfKRvnX30yoJJnr7F2NHJhuKG6 ALGwdMkjYmMxxR01Zfj+PGNvbGdy n7FtEomvs6joa6eeaYw2 RtSoAMQfneKgoCtxSOI5t6YkBr78 I29bVNqrDJNjIMAkPCHvQHTqdRfx lq6ypK4tHe0+PGNvbCB3 kJL6yL0yFKHbPvI6MHliV468OyQd wUHhOkxxh4ukp5zsyPv5AwKpVOGv okUusBewSTF5g7FfAq47 E24dKJoyRJUqFPQlMGMaWTAsyKdy rc7usG2ePi6+XB8yz3emkq98gW08 dHI+XKWmLLV8lTsgEBeg TGHutG6yALrsHmN3FBWvVvIaaP07 yAEvSZjmCs0zgLvjqZzuAT7eQEJq kzqex978CyDdt6wkOZNh gDQpCMnvZIN1G92my5Q8NZStSPFd XQT9zKU9oF9rrKgbhbutkSQbeDzu itHavZpmRIavNBxkM641 IHRvcDsnPlBhdGllbnQgTmFtZTo8 S9JrOgn8PIJirFiyPN6zfWDlNXwr Ln0thLmwkUsfKH1oBSCl xplbj849MmLib1sjBJIgyWRpBHix SEM1W75vn0M1KKJpJRNtNGF6eGK4 zS3txZovgkyieLXeuKol yhIqeCqsWNvwTXbtV146UPKwzXvs RcCnexEpYAIdoMP7QT48WC64wVOs f8O6nYB0K3HdLZOsjxyc uwzbyNQ1QAFgGOMbaV47Kc9pdLjx Mw9mWNHuXTU7NIXzkBRkD6RipE2d RyCsPGUnXFYgO1LttOUq IEdsS096YVfkNaR3YIVzduFkL7Qp NCRtzWbaUxB8l1I7Jb8EI2R0VG82 RX67nWOfp0D9kQW6V1Go RBQqhkrbzywcfMT5GDFqGTLzzI56 Pl7gePheWl2sYRLdMVR0DLUkkQIj I5VvlQ2xEtUaBZRtTKZe Y1YaqFDoMIvlA340BGidPvE3HODw uyBdF7RuAKQfpZrnEcB4s1V4Pk4O NBi0MN70GD96tSIki7I0 bTH4A5FlPLKemwfiwbrlnYM6MEMu TFOtwQ26Ls3ptBtoKh1iJIRvFKE0 LYWkyIMjO3WttB9pYmLs YHVhANGhS7PrkYHbIPsrS851PIqt TrH4LVHmplNaM9VyCAMvaSeiLoB1 f8U5Yp7WFGZfKG83YKI1 iIM1KY71PR05Q4XjOrpwqYNjdWF+ PHRhYmxlIHdpZHRoPScxMDAlJyBz vUlfQQ2dJi4xFLWvHWHb sOtvpTOkSzDwy3yzDEFyHDxpFO2e hKcdG3AokES3YIZoz1h7Ly67R25l P5KbbAI+ZLLsnZI7gFC4 hI9cCwHpUlF8ZXcoK982RdRkyELe Ctnei0axv6mxtTn1CyE5NOMlnlIh sHcwVRU5d6EnMk36T72t RIciJIVpKUSzIFStINJjjGpcxf1i wI7hHs6+QTPvwSR8nTA4rY9lSnJl YuK2BGnfL707YkQjzPVu Dyjtv3rdv5xmgDx5NhLlAHYycbJa nZseIFC3q7SaZw41X1OmhYsfb2Oo Zoy0zo78yWVxr1Z6kRF1 K0CrVUKvgtarwVDdxMqvBH6tNURf sggyMRNbqX9cNHEgF3e8GeWmGtB7 JQzxC7FvsyR9PVVorVFp MZtjRMR8K06uj9B4IDYwGIKpAXI4 mXJ6jC9qaBdyihmliAUnuMzaksYh dGcqKDweBCsnF312GZBg lZzwSESfhJ9oZMIvkIWmlKfsQO4w OIHxsangIziEQDyMDZESEA0RLIBm QTwvdGQ+VEGyFNI9fEyb HAvnHGFcoE2vLJMeZ5p4LsNqZiE5 EFyzE6RgRGJydygsOf19kC3zVlAq SpW9SDodO2MbipX4IWNz cGYsEItcBUD6A41nx8X9IFDwXFJt MMP0iZC3tN7pcBeccqfsjUGtjZgb tpBytXmmKAbqEWlvD715 GEJokFppTrGcGiRmDvM6YVn5L8Ep Fst7NUDsnVpxDU1hzXKvGZplWc2n oBlbhVrsZL1dGMSrsiaj MFUvcB7aOHGwbZHnkOopFR3hDXFf asgiz930ReRzAJK4CRBkaCSuD2Eo yS0tHoRrVXOtORMsZ2Ox ySXvWPbhM875ANboWkE6GLDpokWp L7QqHLUdnHncNiC2s2U7Sj42LyDI ZWFyczwvdGQ+PHRkIHN0 iGedBSswDPWtkU2wFNNtW4k3XcHu WjC0DMlmI9OfARJgdcouBr49pM4k PrOpHeN1FCjwV7UoahK0 YQQbuROtJHupSGJ0D91hj4D3MYEr QKQxHEY4aUE9sS7osWmnqntktYIt dDsgdmVydGljYWwtYWxp N318NDVvwIhhNw2vxBT8U7UwBoi4 JRIzgRydWF0kdPRmEFctSy1gwOvy pPdjQL9hOYFewdibAXPz mQ4qCQWawOHrvCdwVB1aBNNbgxwh x548AwYsYVY0WGUbrKLzF0MwfP9q SeFyRPRfLCExX3WfbCBy NUbhX023GSirZkT1RFEhgyBbA9Gw OSJkmVmeJpM2i8Q7Rq4WcBZoO3Ti L0s5P6RhJfxxfNI+PC90 QWAqBO03nJUohEMml4swxCb3JzUt HBZsRRO7yOquVZann6RnWZVeQ11b rMQxb5N7QRZuoJkoeOCv BnOmwTH9rQ6cYLiecvsij8tnjmfg Bdeep1ftlh37dD61Y93hPWpaYNPl ORTxUZOxKQYgbEzeve3f xL6wWe0+IFUvySJ6dIR9sC9bZcRw LnG7ZIwzQ858TyMxgSGzRvgrj7nx l8ylzCj8NuXnFMGabxSq lEpvKBZ5w1RjYd33S68kMCtsBFJs SIZrWXGmJLIkfQdkvv2awQ6jDg9+ FT8ok8vtvz86oZ66hHV+ YSDvGNZ5kRmhFFrgJWXelN0vKPyj AyM3QAZvReQsfJ59tZEuVUtsSa4y wIyfbGppTE6sOFMetxec k467DfFph3pdXLXhsAJmVJhlCSW5 O96kq1H7AMSnZETaAZM1cKM7nZ9u bGlnbjogbGVmdDsgdmVy uDipSKbgFNusE303WKLzsXzbZzOm yNLzD4sqllNMWS7gTnnsiHL+PHRk GSC2oTbjKPepOZJcgM9c PAZdN1k8ImWzVoG8DWizX9KuunI5 LVWheTDyMCDydRFMcV9tozswo9lf xkkcDePfIHKyKMp9EHp6 JBTpyGpuDoLjJJU8PdH1GPZ2hYSz pW4ljSifxveaaA0qRus+RklOOjwv dGQ+CJZvCEX2kFdzWUhz RYCanS1lISXfV4w9EvTtYcO7IGoa J8IuzjO5GOGvzXFrAPXbfWFXrW6y rygql3dvacwpSrYbRRXg PEx3MHi1HRXxeYmgKcOkAIP8UrE7 ZFR1bHRytE0lgAbvmdwwpF0aBle+ TVJOOjwvdGQ+PHRkIHN0 bVkhKSypXDOfhJ9mCLZeC0o3ZuJc MkK8EGtrR1BglqT3TQThkYOhPXPc bAYCsI3gegilf4iomvsb BsYeIAZtTXj7JDz7QAUzuWodVaXt LPX1WnH4BMM0wHQoqV5poTkluexv jO2jGaf+UKZ5VQU7TI57 CD13H9VoJlivpLTptRS+PHRhYmxl UDwkMCYyRNfcPNAdSiXiqBsbQT7g Fx8fNMQqMBGuzVinvMWv TjLqz9no (more content not included)... Normal [facility] Coding Summary.on 07-10-2022 Coding Summary. CD:[id number] Gh0bWw+P GhlYWQ+GA0ZJMQoB52dqUVayE3dK 0NMTElOSywgQVBQTElOSyIgbmFtZ F3vxSUhJEZg IC8+CN9rVYZqUyhfvYEkr4H9jQI6 O17vlq9yLUhwhSU3APYdUoWfsomx f8olvNm4ZCsrWpscUwLv NPXjuL39PKX7gP58Te37bVNriWSd l2mbhAq2CiNiWVYrMIO7dXczIGji n0XoCZJbU21xtAQvx1M4 UXNqmStldTJiQzNlxNG2kC0mWQif kjhzy9rwrslfCrr4dv42xJThn0C4 bGQ4S3NyooM4FGBmtQSf NathsHLSrC4rfumsz5muedpcOeRa RQGaMMg4AIo4FYTbySlmEgCkFR61 TPK1TTIczmRfQ0NlRPXb mLwdKvT1p0V2Xs5RL4IYZxijZ9UR TUFSWTwvdGQ+PI81xd17E0BmGdze Xir6PQKfEMD7oYE5xV5l NNBkUGygf1S5mPP2B8NtzrPfdx1q l4gpOFEfAEqtX69qaEYbn1Z9WUAc sIL5LTEgfWxhRmVinI23 Oyc+BYCrhAiyw2EzNocrr4npw9al fWs5FoyrXYWfmbTnrZuzGTD3b9Np Pu6rTEMmqKR8sIS3qZ2d XxKnIvQ8KNysW413WsGzsASmTabe Y68wX5OxeOK+YPAbJbp7JKNkpGpg BA0lW0DwEIQikhawxMGw cUcgIE2gXCYcfmlrGVZadZ1fBZMv F0m7AtRaZmD5IApuT0ZxEMOzeawm Fw32uK8oCgFhBwU4WFnl N7YtbiH4MLBplMKoHNsiHOF3E19a g5U9AZXrKBMvCYU0iME5eA3byHxr bjogbGVmdDsgdmVydGlj JAsqKAfxV692AUXisXqhKwHiXFuq ZyBEYXRlOiAgMDMvMTQvMjAyMzwv dGQ+FUFzVSZ0nNwfVZEx kLSuNXhnKs3kiCblhMotCW4dLLPr jaovAGTssI7eQNQzrLRmfMoaPX3o WHDhohdfe711IwJsTSY5 EIGffXQjS3WzsT7gBuZvSCTqSIAs H2JbsSRzCJtaD771KAxtTuY2BEQh ryMyM8KcLVDxtMnnGdS8 h0Q6Ct5Bv0NaalraY8LzhXMgIqHl CfcxRBw1A2NoQkaeoVH+XL66PHVb ZT25COc8HMR4kMnbNHzo QRMkG9XdtU4cVcPkBHNyNWLeHhm+ PHRhYmxlIHdpZHRoPScxMDAlJyBz sRlsGM8gDd2fEJOvQVMs lAgsaLZyBtRch0ymVIVmJUkfRX2l cMqnP8YvqXN7PMAua2j4Mc67W83c S2TzkZK+HSDokRR7lJU9 lS7lUdVzMzN9BXzmU236ZeTdiHZh Pvddq2vxc8ztvOw6WjJ9WRWfaqKk lFmyCMF4v3XnFr21Y59z JXdtFWVoEQHvMPKxXPTffGkzjs6v aG4wFg1+FIWgcOS7cTU6hT8xHlXc BjM1KVwvC231TdMpyOAt Wgkwx9gjc1yqeHm2TmPeFMCxcjXt rJnvDTW9w6XhDa63Y7VpmYfwm4Jy Zev8lv20qGNtp7P2jWK6 U6LsMMMssxtcjSNvpCdpJY3iDPOq xytySHPuaJ8lEVNrN1w1HbEpAnQ9 HGqoA6HmdnZ9TTPnzYOi MTCwzBSVkJ2rehshr8widrveKpOj FWZkYYa7MZr0EBAfqXgqCpLoUMJ3 SjP2LQK3wYWzjY6fnIdd ilovrH2wOld+RYR4tKVzoDZDCK4a OjwvdGQ+FVNwGRY4oRhnBRkbZIVw kO0vRGSwX2p8UdUqOzO8 EOkzB4UbuaU3NBNmqADzCSEemCNT rQ9klijdm9vexdwxYpLyJKRvSWg8 QWq2EBOqnQsqUzQlTQY2 DgB7CHM5qWZwyP6biGyijsesgJ3l Oyc+SrwtoFawCRW1QWs8B5PrNpz2 KVRvxVnoYQ4qhOAuYWzd Aj9jnNkvgEkqHW3dFWScbreqv993 QxIkv8cePRHmwWYiDEcqHHN9X01y y5M1GNRcZAPlHTO8kQN4 gV9eiDzayrmryETobMxzblAeoFrg QIweJKkzV357IZOxdNnvMeDtFAv3 A9PcOgb4GEGvlFtdJC9j aBYcRZiuDl4qvDckaUpfJL3sFVNh twwen188DzBte2neCSHnlYHnOCmt XJT2O10zf1N7WZNwLVZk ILU0zJP8fZ3bjHhzjtfdcFOmaTxi uiKfgRipZSbtFWyoC479LGHmgFma PbSvwRt6P9BnDww4BBBk wSngRH6moHPmTCkuYd9ubMpwkDva IZ4oWIQydytzj181JhDmo7lhJTNz iUNuKCxxCMM8J50fw8D3 JLNqLAIaSYR5wZK5uH4nhWdxfypp nCCurXfbrwGgbMfuGZmeANicF042 IHRvcDsnPlBhdGllbnQg INfjEBy3H9VaXvtohNU+GF26PQWu JE26zLMrdIAqa7cunCe3YlQbDGUh GFQ8yItuCHcai2QyGPHf P77slVHbr9P1RSDsdKpcnUEdNvEy yPG0cQ2aAKruamdtm1elybpgVzct x3cngv44iX94F04lUEpr RFKgQDUyKLHyQWVxnFzyiy3vtT7f Ii8+LIBdlMO5sTP1bQ6yFCOyEcP2 GWtlA478FwShyTDqNura w4sbe1gfwEr1UfV6ENCyxgMykSkg KAB3s0FoCu83M74qMMtcAVXsSFGe MHYuTQZxyLhyaq6ygO7z Ii8+TDNfhKX3sIQ4eW6hElDrAwC5 CXaxL230WtVquTAvClpyQ47zS9Th dXA+JACtRsa5KBDcfAsh SK8sgIWmAUzzHt7aZTM4FwTbVmIu ZGknA8BoQNCilfsglraofHR6IIUh YLWjaR64Wq4ngAciFHVn kFTAbA3pgjyrp1ektwpsRnBvJMJo AYo6BIj3DLEqtNibPzKpIKB5PeD4 XPS2wZDxvQ2epBrceaeb cW8kB3RtPNUlqeszWx58bJ2cJwSl WtD0UUttLzx+I3TAZQnlIZNUM73F JwVDNW07CP31tGZjk4F8 oJC5N7AdCJWccegmkrzvdYQ2LELp NRFojP56wZZhQOczEa3sc3Z5k360 NBTqPXCnqO41Hv5iqRyo TRLapYLTwB1dxemwc4csuwskVaHw APGdMSw4ZMm1BKKvdBshLkLnNFD4 NgX2WOR4wJMprW2yuDid fvobnJ5fHvs+QXEbCVEdHCy9Ppre dGQ+BTAzYIG1pDhkZZmhCPNekK8w HRJxN9h1YrSmEaW6KJov K2LyZGDjndihHa76xB4zHoZgIqX0 MKchF6VvfoY6CWFjqIGcIGqkKLO3 A53fr6Q8VPNkBARxMJN1 bWM8tG7iwVtkgrsahMXueSkdgrQe wTcxDOjpQQttH992BDPmzDicTfr8 INcbNTUaAU96XN17tSLt z8Y5bPD5B8NjVSInhvqjhutedHS9 KKTlLHYwxM20tHTnJYgjRs5ke5V3 u529QSZxSSGorL65Lg1i iXvtYMRryPOVoB8gqnfxl1egtruk FzPxTOQgDGv3UAq8HTQptSlxKeAw LUM4OaV4CYX7vYMaeA5z kEucmaeehD8aMmd+TWFsZTwvdGQ+ YXIiYPC0zPwaQWzmNRRmdD8fMOSx K2r7CvQtPiV6KJnmW1En ZHIgoebkVa60pX6hFmNbBfM1YJgh S1KskmS1NDMbsTOqVVmbFEZ5L06h z6D3JRWqQXIdANT1iID7 aK9cyZoyrnuwkCXlrIjyqyKezKur WNrgSYwzI214WDYjrNfwIz17qQVo eBlqrgO9E3CgEuajlTM+ SU93ROXhYF24mMMleJKnf8ozvWo1 MrHzBRVfVHW7uJxdJObpu4BhAKSj P69jiLJpt2I0YIIpcOly tROzTkQscSB7oG4tREhkwxyng3ex yrbhCzicr2dcil77zO53S37eKJyr ZHRoPSIzMCUiIHZhbGln dd4ulS2mBh8+IAOgpDC7qAF3nW6r FqHgAbT3SYszW745YnDatIJhKhbf u5mqm2xoqGj7QfTrIZWs nuCfxXwsMVS3w3EaWc41I60pJHqv KNEnOQAxSVTyTHXweGmhrb4qgF8g Ii8+KM7fw5suqs29jL92 dHI+RLKxWLW6xVdhIUixAEYawC0p AAwnBrA0ETBgRvNlrP98aVFiHVqw Fj8xfDzwzRggUL6aSXJj teywy725JtNvj1tcOLLwqZLyYTqm AGR7D01rk3H9FSCiASSjPSY6lAR4 fE9hfWvixowegBFgxWcq vhQyuDumUVmfGIxgW235QFQysFdz XqYfpHBdH4uxraREJN6qJmtbdLC+ ETUyHPQ8uJiiWTkdLENn qS5cMKZdQ7l4GeMtRzV5MIprZ2Pb ekB9OTSzgMWlVLAddFTIdS3nndkf r8azooisFhUzIBHoEGs8 ZPc0FIIbkLnbIbQtXCN2UdO3AVP6 pLMgmY2jcCdzrocecA5kAlo+RklO OjwvdGQ+IKVmLFM1xNhf BYjaNGUpoZ4rKWWaE2d6YpTkOvU6 BBriO6RqjgD8WVYyvLPfDXDddWXR pU5jicghm4mjjjdzEsMo DALbNBj4HJr5FFKrwUwkHlQsURP3 QjG8KMT6rWIsyN9unZeoevxuiL4q Oyc+TVJOOjwvdGQ+PHRk HZG0uMapGKgdQIWfiL9yCCVxD0g9 IqVsAcS8NEsuA7MvqjT6ABEsgHMr ZIAzgRGWmC0gjfnif1hn powkJqUnKRRvWDb5FAs6ZQHjnYdu KoQtNNU5XcN6WTB6rOQiqJ1yvJto oadehQ7uEcw+YHY7UFE7 EK83MB70W8TjUxyhoZHqkTV+PHRh YmxlIHdpZHRoPScxMDAlJyBzdHls WP6fWq5eWETgRWZtfUkk cHNl (more content not included)... Normal [facility] MRI Shoulder w/o Contrast Jessica [...] Fluid extending into the subacromial subdeltoid bursa. Lwsn-gc-xqxu contact of Report the humeral head with the acromion consistent with rotator cuff arthropathy. Ordering Provider: Tulio Vaughan FINAL REPORT Dictated: 07/03/2022 1:09 pm Julio Arcos MD Signed (Electronic Signature): 07/03/2022 1:09 pm Signed by: Julio Arcos MD Transcribed by: KALYANI Technologist: BRODY Technical Comments None [facility] Consent for Treatmenton Consent for Treatment [id number]#1.00CD:127 [facility] RAD - MRI Screening Formon 0 07-02-2022 RAD - MRI Screening Form [id number]#1.00CD:127 [facility] Physician Orderon 06-29-2022 Physician Order [id number]#1.00CD:127 [facility] Pre-Certification Formon Pre-Certification Form [id number]#1.00CD:127 [facility] Discharge Instructionson Discharge Instructions [id number]#1.00CD:127 [facility] ED Clinical Summaryon 2022 ED Clinical Summary (Inserted Image. Linda ble to display) [place] [id number] ED Clinical Summary Person Information Name: ESTRADA PFEIFFER [facility] Age: 77 Years : 1945 Sex: Male Language: Lebanese PCP: Rinku Encinas III, DO Marital Status: Phone: [phone] Visit Id: Visit Reason: Shoulder injury - [...] 06/24/2022 23:50:53 06/24/2022 23:50:53 06/24/2022 23:50:53 AD[address]ESS: [address] [phone] PHYS DOC NOTES: MEDICAL INFORMATION: Prescriptions Given: [...] up: With: Address: When: Tulio Vaughan [address] [place] [address] Business (1) In 3 days 06/27/2022 With: Address: When: Rinku Encinas [address] [facility], [place] [address] Business (1) In 3 days DIAGNOSIS: Rotator cuff injury Normal [facility] ED Note-Physicianon 06-25-19 ED Note-Physician [...] and Complexity of Problems Differential Diagnosis: [] [facility] Data External documents reviewed: Not applicable My [...] Vaughan In 3 days 06/27/2022 EST [address] [place] [address]- Business (1) Additional Instructions: Rinku Encinas In 3 days [address] [facility] [address], [place] [address]- Business (1) Additional Instructions: Patient Education How To Use a Sling Attestation Patient seen and evaluated by the physician speech language pathology assistant. Attending physician was present in the emergency department and supervised care. This visit was performed by both the physician and an APC. I performed all aspects of the MDM as documented. This report was transcribed using voice recognition software. Every effort was made to ensure accuracy, however, inadvertently computerized building and construction manager mistakes may be present. Appropriate healthcare PPE was used in evaluating this patient. The patient was placed in a mask. The healthcare provider was wearing mask, gloves, and utilizing proper hand hygiene. 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 Normal [facility] Comment on above: Result Comment: [...] 11/27/2004 Document Revised: 03/28/2018 Document Reviewed: 03/06/2018 [employer] Patient Education ? 2019 ClearView™ Audio. Normal [facility] ED Patient Summaryon 023 ED Patient Summary (Inserted Image. Linda ble to display) [address] [address] Patient Discharge Instructions Person Information Name: ESTRADA PFEIFFER Age: 77 Years Arrival Date: 06/24/2022 21:36:41 Discharge Diagnosis: Rotator cuff injury Primary Care Physician: Rinku Encinas III, DO Provider Information Primary Provider: Josh Obando DO Advanced Certified Technician Specialist:Amadou Hobson PA-C The exam and treatment you received in the Emergency Department were for an urgent problem and are not intended as complete care. It is important that you follow up with a doctor, nurse practitioner, or physician?s speech language pathology assistant for ongoing care. If your symptoms [...] Instructions: With: Address: When: Tulio Vaughan [address] [place] [address] [employer] (1) In 3 days 06/27/2022 With: Address: When: Rinku Encinas [address] [place] [address], [facility] [place] [address] [employer] (1) In 3 days In the event that this physician does not participate in your insurance network, please consult with your insurance company to find a nearby participating provider. Patient Education Materials: How To Use a Sling A MESSAGE TO ALL PATIENTS REGARDING OPIOIDS PRESCRIPTION OPIOIDS: WHAT YOU NEED TO KNOW Prescription opioids can be used to help relieve kehubcmp-aw-zewvgj pain and are often prescribed following a [...] not included)... Normal [facility] XR Shoulder Complete Righton 06-25-2022 [...] in mGy = n/a DAP = n/a [facility] Consent for Treatmenton 05-31 Consent for Treatment [id number]#1.00CD:127 [facility] Coding Summary.on 06-04-2022 Coding Summary. CD:[id number]:[id number] Gh0bWw+P GhlYWQ+PX5KIERwQ50qlCWyrB9SQ 8kQDY5VSVGAGDMCZO5GXQ2ltAS2V TuhC8FevyUw MfrwcZFjUO26FUq8HHA4yZsxRAja cJ6jhTWlZ1o3TiJbRV96wV25KTcs VDUrHdI5RxLhzpvxhKGx R7zsNkOtwDLnVul+PHRhYmxlIHdp PXNuNCmiUBSzYuSmqQfjJA3tQp4g ZGVyLWNvbGxhcHNlOiBj v0yaQGDdAMydCS5ssBfuL8PzhZJ0 SBMca5f3Az28oPN+LVSvFZG0uGvr GIthr874FpUhz1wmKXK0 iEMzHGjpSBB4U72hi1Y8KPUdVWQo VEQ6qQF6gM9lbGbhegpuK5ApuUCm BlD4GSQ0eUAepL5hjQef claepL6jZxn+P46DUU8RYGOARX8F Wol6F1PfIaxneQU+HP77YSOxZO81 wVRdfNLew2kzdPh4RgJx CKJlHLQ6cSmeHDkba6FvCNCvU35n lWOjy7M5GNJmnIdxvBOwJoZpoYY3 uZ1xJJlhuendm8zthjqu Djpxz0fzwa56mV41U41gMAzsXVRh ZLH4BHZvJYKwpYvkkn9wbZ0jXf0+ MZmfd7iyx3kyfZk0LvUd NSEijqJkpAxfQBO5h3AbNv24C0Ff yYrdg1ZsLcp1hs01lGIjw2Q7dTO6 SWdiIAChzV5eWFdeRxO2 CDBwMzKjwW14bNTqICesMu5qvXki oPivHJ2xXTMszndaCDPaqK1mASUm nVKbpRtuGM8vTFQhesgi u349KjTwAVA0HBGmhDPuK7TgiF2y HoLjKMTrGBJnC9WxbARrRCzqD221 TCzdUtI6NFRiirUlA7Db XRJneSejUdY5a6B0Av6Uh6Gncgdo VJA2RGrzIGBmNfE9EmVdUrJ8X7Kl Uxw3IXHvgHfwWC2uV2Zl DMNyqcvshtjcyDD8UFVrKZSobF27 gKStYCsqMr4gj5A8k201IUBbMNCm mR03Ot1nsFhvTXUcsKTP pY4jxlvyl5femlukYaKiIFUfKTr3 DDr6MZWpjGccOaQnHVL2XxB8ZDL9 pIGmgZ1wmWajdcdhoE1k Oyc+O07ryD2rPFP3PYF6ypusQXRu seRcFR79KI75X8GaAemehMSifPU+ OKEkfjYlwQmvET3zDhAt n2bqk8SjOIbaS2XmJVDfUFzzAvb7 BDHaYCL0jVI2vU8uUFHqXVnel2P5 vXW6E5AqobBgfz1en8sl ULAvVXjbD35wiEJny9E1BBGawSN5 RLXctWtdHcVcmG63Llo+PGNvbGdy i2HsLfmxs8pxi0vedDu4 LgUlEAZcseRtvMidHCO2o1PsWl34 R02zTZeeFELtUAAdAWWaZHSvqSsx wm6vdS1cAn9+PGNvbCB3 jNH3eL0uRSNsKbG9KTpnR564TqCw mYWeUeojw7yzi5uvsHl5BnFlXJZr xpIjyYuhRCK7n0IjZg69 I52rVDdgFCKcKYPzXAUwLSYdhRua ff7xzO0kNf5+NW4vt2sgwt40pV57 dHI+YSWmMTS1vBphPMzz FELhkG5aVYagZnB4VETgQzRaoL95 cHOrZGymBz1txEtaaVxnHB3iDXKl icxhp846OoQmw9vqTFFr dULeZWwoNMZ2H44rj7C3TAMhGGYd PCU5uAX2uN7ycTfjdyileMHcnCnf eoCwuQnlBBdrBYxrA785 IHRvcDsnPlBhdGllbnQgTmFtZTo8 Y1MmQbw3HVSwnTwqMH5ozSIdGMlz Rx8qeWlbnXppVA2aZJSo eusfe686BdNgs0qdRJWdgYOqDVst VQK3Z01kx7G6JDFkOTDkJDZ0mDC2 oG1eyXiojmdwlOKptRij xqFxkQekOSzjYEddV756DQHytEhe WgElngFlITXvuTN8BY34LD31uZUe b8Q9rPG2O7ZyPZCoxwxb vsnyeKT5MUCxPDVbkF04Kd7zdPtv Yy3gTWYgPPN9BBFnpKYxN8TtmL4p HbGwNQHhOUAfF7AhqBCw HZlxD660TDihWyL8REYcpkMxX6Pn EUJgdIvmOjG0s5E9Ik2MR8K4AL75 QJ60vDVfi8L7qUJ1D1Kv UGRepgnpqkwfcLW7SXMyBBZetJ20 Xg5tbZabZz6jXJBfVAJ5VVWegOMx I7DlbC1eVnSyOOYhXSOr Y0FzrHLqVDwqR975XOkfCjF7RFQt gzDfZ7QwLTYjtHcwJoS8g6E9Nm9V LGo6LE35OA14jTOts9V8 zIG3Q2BxZFLjucimjkaulFW7PRWq LVNngP81Ku3aeHnbKs0fFPJoSWP7 MTEbvZYtL1WdyK7bKbPn GVKmCGDdU7TkeNNuUAcoW931VFss UuA9XPLzxdDxG0ZfVZSjwLbgPsJ1 b3U5Rw6HFKVjJM30IIF0 iHE3UA90WS87C2NoSqdsxTNssGX+ PHRhYmxlIHdpZHRoPScxMDAlJyBz nNtfLT8qAo6aMAKkUQTt sGfreJZgRoQzo9zzDYTeQKloVW0n eTfbN4JugWM3IVQju2t0Mj27N18x W5LovIE+XYCykCI8nAU8 qC2cFzMoWtH0WTkqE924MhTwhSPq Rpjde2xns6uisZi0CrN3XTTjrwEv iXjoKQH6g1GfNu94I78r MZbgVPYyVKKqSFEeRHRuvNpcqe7m sT4pJp1+PNYcmFN9kNT1xY5tJdAa RpH7VKxzS809JyWnjLBa Bqbbh8bru9jfnUk3IlYlSRBfrcLz vVkqEVS3m5GwCe79I8ZnyKdcn4Yg Zij0ck20fCQem7W0wUI4 X8RiNTKmsdxhiANtpSamYM6qXYIk vqcjUGTvvB4rNFXhZ2s8XbGeMhU3 JQhgX4LaoiI7KKKqtOJb DFdaVAD9O92xg1C8LLYxGMNpUTH2 dED6mK2gaEyifokojQFxxOvrmuJs rWxrEDtbBRbsE141FHCi aOvvRMOnnR8pNXReqBPfrLrkTN4w MWWfcfyjPiaNMLmXADEGWG6VOSAe QTwvdGQ+TKCiWBG9pTbc JPlkMOOrwZ9rULKgU3e3NbEyTtE2 NEzfH2PuCLPnlshnDy84uN2jCiCs AaY2VOycZ6QfifG1QEDs xFIrFMzvEPV9P91zd4Y6CHFzEPRm MWF5cUR9cB2jzJfvuwugcFHtmVse zwZzpByoQSmcJAzsR883 PKLzcGgzCwUxKiFqGbD5XTv1D7Jf Mtk1IBXxxTrdLW5sbTLhOJeyPj7q aQyihDwgPP5dXJJxmujz LUQyqY7zVNIoaDRfhZzkXC5eACXt xxute822QhEsNJX2AAZwrSVuC9Pe oG5pHnIyJMXtJZXyX3Zm fFNuDHkbZ316PVcjJpB2DNHltxBa G5QwNNYqiTaeUqL5z9W6Sz03ThSF ZWFyczwvdGQ+PHRkIHN0 pIpgOLlqCAVswM7sIKLjN0u7RsYx LqB2GLjyB1BmCROtaitjJm66lJ8u ZyShQyC6JXaxK0VekjH6 FCYclGSaBFxxTAJ6R62gz7O5FEVg NZCnCWL0lFQ8qV6psKibusfleOKr dDsgdmVydGljYWwtYWxp X110WUBeiSkeCz1rxZY1B5QrThi5 QJGleHguKX3guVEoXIwqPl0skNjn iEhtCX7iFFMdmvlsNKEn hK9tCYPijVZinSgkWF5aVQLchlgd w564VfFyNHJ1SFCovIJbM0HlzC7q DnUiYRWzJNFsW1AzeBLg HNumX921QElvToC1XCHzckCbQ2Lt IBOxcVhnBjV2h2B1Ie2NgDDwEHPc GF77BH45HQ23S9HfScvt dGFibGU+PHRhYmxlIHdpZHRoPScx AGSuLjNgzQxgZU1gRk5eOWNsXSQr jNtkoGCaCyMme9kmKKFv BTwrJI2zzInxC0KlvJX9JVYjx1t9 Dt48W09pJ3IfvCS+XPEpvWH1pMC8 xR5kAnKjKfP6CVpiG769 YyVrlAMzNwhat3kmj5lhyHq5HnKv WXGswaVbxEsrMDI3e7GkNo23X78o IHdpZHRoPSIyMCUiIHZh mHyvcl6wuN7uGp8+ALJaxWE4xIL1 mR4fQnEbEqT0UCeyP828JjTuxGMj MyzlT04yP5PglRT+PHRy Zef1ZJXffTgxWP6jzITsCSfjNd8g IAH3PkKtMuDgAPpwK3DkZDUszydt lvjuaZP4EUZcLQFanI15 Fi9jxLhfGi3sTJZtCGG6LWKfzLHb Y8NhgL2dUcTrAIDyHRRzR7GzdQTq XItbF214PPobDoJ1OITt qxVkL5ExRSWlxHhwBpB2i3Y5Ku1M aQaaqWUwWP7xOnZxVQp3J8UhRzo0 DLVnvLgzAL7zyWAqOGkl Rj0crNyfoSgoAN2fIVDwdvrzh851 ByTbl4reXVOzmHCzKLucFCW0B54f h8S4SMCtXUEhDBQ2sAW6 qO7plJtvukbbqMMuhWqnzmEzdBsk SJynTNrzM218QLEnvImaDtGRFiu3 R5DwTos5MVGocKziEN6p fGDiLCgeBz1yiMextXejEE8pOYOt deluj662KqIot8tkWDIavVQpCKfh LIR4T54jf7K3MJMrCOIz ZTF7aOJ5dR7npSqviouiwWPugFvm xqNleEvnJAliYTgxK919GJWqnZnh Wd5LBmr0B9GwOay9GJFt uMfpFX8nrTYkHJxpRa5mtVactFce FT7fVAJmjuekg324LzCds3mdOYEa eDYlCYuoDFR7I08hl4J6 TAElVPXfZDX8tDJ8zN0xrJlsyynv tQHtpBrqfbZfwLzaHObiMAihG469 IHRvcDsnPlBheWVyOjwv dGQ+DN11qo14H4XdOnmtRpc6WWOj FFL4dBR1oR9eJKZqIJbcb8H1mVL7 Q3ZoliXfxd8qv0hqOQRc [employer] (more content not included)... Normal [facility] Office Visit (Cardiology)on 05-31-2022 Follow-up [...] a smoker Tobacco Use Screening; Status:Complete; Done: [id number] Patient Instructions Please bring all medicines, vitamins, [...] several months ago by vascular surgery at [facility]. Lipid profile from recent testing [...] he had venous stripping last year at [facility] 6. Sleep apnea on CPAP machine with [...] for co (more content not included)... Normal [employer] Tobacco Screening.on 023 Fall risk assessment a) No falls within the last year Located within [facility] [employer] DO Work Phone: Tobacco use status [facility] b) No Located within [facility] [employer] DO Work Phone: Tobacco Screening. Yes [facility] [employer] 250 DO Work Phone: Xu 05-30-2022 ALT No additional P-5'-P [Catalytic activity/Vol] 14 Int._Unit/L Normal 6-46 [facility] Comment on above: Performed By: #### 2 [id number], [id number] #### [facility] [address] [place] [address] [place] 05-30-2022 AST [Catalytic activity/Vol] 16 Int._Unit/L Normal 5-43 [facility] Comment on above: Performed By: #### 2 [id number], [id number] #### [facility] [address] [place] [address] CHEMISTRYOrdered By: SYSTEM SYSTEM on 05-30-2022 ALT [...] Remisol Consent for Treatmenton Consent for Treatment [id number]:127 Normal [facility] Lipid Panelon 05-30-2022 Cholesterol [Mass/Vol] 138 mg/dL Normal 120-200 [facility] Comment on above: Performed By: #### 2 [id number], [id number], [id number] #### [facility] [address] [place] [address] Cholesterol in HDL [Mass/Vol] 49 mg/dL Invalid Interpretation Code [facility] Comment on above: Result Comment: HDL > or equal to 60 mg/dL: Low cardiovascular risk HDL < 40 mg/dL : High cardiovascular risk Performed By: #### 2 [id number], [id number] #### [facility] [address] [place] [address] Cholesterol in LDL [Mass/Vol] 71 mg/dL Normal <=129 [facility] Comment on above: Performed By: #### 2 [id number], [id number], [id number] #### [facility] [address] [place] [address] Cholesterol in VLDL [Mass/Vol] 16 mg/dL Normal 7-40 [facility] Comment on above: Performed By: #### 2 [id number], [id number], [id number] #### [facility] [address] [place] [address] Triglyceride [Mass/Vol] 82 mg/dL Normal <=149 [facility] Comment on above: Performed By: #### 2 [id number], [id number], [id number] #### [facility] [address] [place] [address] Physician Orderon 05-30-2022 Physician Order [id number]:127 Normal [facility] CHEMISTRYOrdered By: SYSTEM SYSTEM on 02-06-2022 Prostate specific Ag [Mass/Vol] ng/mL Normal 0.1 - 3.5 ng/mL [facility] [place] Screening (Age 18+)on 11-16-2021 Adult depression screening assessment No Located within [facility] [employer] 250 DO Work Phone: Fall risk assessment a) No falls within the last year Located within [facility] [employer] 250 DO Work Phone: Tobacco Screening.on 022 Fall risk assessment b) One or more falls in the last year Located [facility] [employer] 250 DO Work Phone: Tobacco use status [facility] b) No Located within [facility] [id number] 250 DO Work Phone: Vital Signs Date Time Vital Sign Value Performing Clinician Facility 05-24-2023 13:10-0500 Blood Pressure Location Zina Ugalde [facility] 05-24-2023 13:10-0500 Diastolic blood pressure 82 mm[Hg] Zina Ugalde [facility] 05-24-2023 13:10-0500 Heart rate 68 /min Izaguirre Sarmini [facility] 05-24-2023 13:10-0500 Respiratory rate 16 /min Izaguirre Sarmini [facility] 05-24-2023 13:10-0500 Systolic blood pressure 138 mm[Hg] Izaguirre Sarmini [facility] 05-09-2023 11:00-0500 Diastolic blood pressure 78 mm[Hg] Izaguirre Sarmini [facility] 05-09-2023 11:00-0500 Heart rate 53 /min Izaguirre Sarmini [facility] 05-09-2023 11:00-0500 Mean blood pressure 99 mm[Hg] Izaguirre Sarmini [facility] 05-09-2023 11:00-0500 Respiratory rate 17 /min Izaguirre Sarmini [facility] 05-09-2023 11:00-0500 SaO2% (BldA) [Mass fraction] 97 % Izaguirre Sarmini [facility] 05-09-2023 11:00-0500 Systolic blood pressure 141 mm[Hg] Izaguirre Sarmini [facility] 05-09-2023 10:45-0500 Diastolic blood pressure 75 mm[Hg] Izaguirre Sarmini [facility] 05-09-2023 10:45-0500 Heart rate 60 /min Izaguirre Sarmini [facility] 05-09-2023 10:45-0500 Mean blood pressure 93 mm[Hg] Izaguirre Sarmini [facility] 05-09-2023 10:45-0500 Respiratory rate 23 /min Izaguirre Sarmini [facility] 05-09-2023 10:45-0500 SaO2% (BldA) [Mass fraction] 96 % Izaguirre Sarmini [facility] 05-09-2023 10:45-0500 Systolic blood pressure 128 mm[Hg] Izaguirre Sarmini [facility] 05-09-2023 10:40-0500 Diastolic blood pressure 85 mm[Hg] Izaguirre Sarmini [facility] 05-09-2023 10:40-0500 Heart rate 59 /min Izaguirre Sarmini [facility] 05-09-2023 10:40-0500 Mean blood pressure 97 mm[Hg] Izaguirre Sarmini [facility] 05-09-2023 10:40-0500 Respiratory rate 12 /min Izaguirre Sarmini [facility] 05-09-2023 10:40-0500 SaO2% (BldA) [Mass fraction] 95 % Izaguirre Sarmini [facility] 05-09-2023 10:40-0500 Systolic blood pressure 122 mm[Hg] Izaguirre Sarmini [facility] 05-09-2023 10:30-0500 Body temperature 98.06 [degF] Izaguirre Sarmini [facility] 05-09-2023 10:25-0500 Respiratory rate 16 /min Izaguirre Sarmini [facility] 05-09-2023 10:20-0500 Respiratory rate 15 /min Izaguirre Sarmini [facility] 05-09-2023 10:15-0500 Respiratory rate 15 /min Izaguirre Sarmini [facility] 05-09-2023 09:35-0500 Blood Pressure Location Izaguirre Sarmini [facility] 05-09-2023 09:35-0500 Body temperature 98.06 [degF] Izaguirre Sarmini [facility] 05-02-2023 16:00-0500 Body height 180.34 cm Priscila Mccormack Other [employer] Other 05-02-2023 16:00-0500 Body mass index (BMI) [Ratio] 35.56 kg/m2 Priscila Mccormack Other [employer] Other 05-02-2023 16:00-0500 Body weight 115.67 kg Priscila Mccormack Other [employer] Other 05-02-2023 16:00-0500 Diastolic blood pressure 90 mm[Hg] Priscila Mccormack Other [employer] Other 05-02-2023 16:00-0500 SaO2% (BldA) [Mass fraction] 97 % Priscila Mccormack Other [employer] Other 05-02-2023 16:00-0500 Systolic blood pressure 130 mm[Hg] Priscila Mccormack Other [employer] Other 03-18-2023 10:36-0500 Blood Pressure Location [facility] 03-18-2023 10:36-0500 Diastolic blood pressure 82 mm[Hg] Izaguirre Sarmini [facility] 03-18-2023 10:36-0500 Heart rate 70 /min Izaguirre Sarmini [facility] 03-18-2023 10:36-0500 Respiratory rate 18 /min Izaguirre Sarmini [facility] 03-18-2023 10:36-0500 Systolic blood pressure 136 mm[Hg] Izaguirre Sarmini [facility] 03-06-2023 15:22-0500 Diastolic blood pressure 85 mm[Hg] ANJELICA MATTHEW [facility] 03-06-2023 15:22-0500 Heart rate 74 /min ANJELICA MATTHEW [facility] 03-06-2023 15:22-0500 Systolic blood pressure 137 mm[Hg] ANJELICA MATTHEW [facility] 12-17-2022 13:33-0400 Body height 180.34 cm Rinku Encinas Work Phone: Located within [facility] [place] [employer] 250 DO Work Phone: 12-17-2022 13:33-0400 Body mass index (BMI) [Ratio] 34.84 kg/m2 Rinku [facility]cinas [facility] Work Phone: 12-17-2022 13:33-0400 Body surface area Derived from formula 2.32 m2 Rinku Encinas Work Phone: [facility] 250 DO Work Phone: 12-17-2022 13:33-0400 Body weight 113.31 kg Rinku Sindy Encinas Work Phone: Located within [facility] 250 DO Work Phone: 12-17-2022 13:33-0400 Diastolic blood pressure 72 mm[Hg] Rinku R Encinas Work Phone: Located within [facility] 250 DO Work Phone: 12-17-2022 13:33-0400 Heart rate 54 /min Rinku R Encinas Work Phone: Located within [facility] 250 DO Work Phone: 12-17-2022 13:33-0400 Systolic blood pressure 118 mm[Hg] Rinku R Encinas Work Phone: Located within [facility] 250 DO Work Phone: 10-03-2022 13:51-0400 Blood Pressure Location ANJELICA MATTHEW [facility] 10-03-2022 13:51-0400 Diastolic blood pressure 74 mm[Hg] ANJELICA MATTHEW [facility] 10-03-2022 13:51-0400 Heart rate 68 /min ANJELICA MATTHEW [facility] 10-03-2022 13:51-0400 Respiratory rate 16 /min ANJELICA MATTHEW [facility] 10-03-2022 13:51-0400 Systolic blood pressure 132 mm[Hg] ANJELICA MATTHEW [facility] 06-24-2022 22:35-0500 Nursing Progress Note Reason Other: portable XR at bedside at this time. Josh Topher [facility] 06-24-2022 21:44-0500 Body temperature 97.7 [degF] Josh Lloydner [facility] 06-24-2022 21:44-0500 Diastolic blood pressure 91 mm[Hg] Josh Lloydner [facility] 06-24-2022 21:44-0500 Heart rate 63 /min Josh Topher [facility] 06-24-2022 21:44-0500 Respiratory rate 18 /min [facility] Topher [facility] 06-24-2022 21:44-0500 SaO2% (BldA) [Mass fraction] 98 % Josh Topher [facility] 06-24-2022 21:44-0500 Systolic blood pressure 178 mm[Hg] Ojsh Topher [facility] 05-31-2022 09:15-0500 Body height 180.34 cm Rinku Sindy Encinas Work Phone: Located within [facility] [employer] 250 DO Work Phone: 05-31-2022 09:15-0500 Body mass index (BMI) [Ratio] 35.29 kg/m2 Rinku Larsoners Work Phone: Located within [facility] [employer] 250 DO Work Phone: 05-31-2022 09:15-0500 Body surface area Derived from formula 2.33 m2 Rinku Larsoners Work Phone: Located within [facility] [employer] 250 DO Work Phone: 05-31-2022 09:15-0500 Body weight 114.76 kg Rinku Encinas Work Phone: Located within [facility] [place] [employer] 250 DO Work Phone: 05-31-2022 09:15-0500 Diastolic blood pressure 84 mm[Hg] Rinku Encinas Work Phone: [facility] [place] 250 DO Work Phone: 05-31-2022 09:15-0500 Heart rate 68 /min Rinku Encinas Work Phone: Located within [facility] [place] 250 DO Work Phone: 05-31-2022 09:15-0500 Systolic blood pressure 122 mm[Hg] Rinku Encinas Work Phone: [facility] [employer] 250 DO Work Phone: 01-31-2022 16:00-0400 Body height 180.34 cm Priscila Mccormack Other [employer] Other 01-31-2022 16:00-0400 Body mass index (BMI) [Ratio] 35.28 kg/m2 Priscila Mccormack Other [employer] Other 01-31-2022 16:00-0400 Body temperature 97.1 [degF] Prisclia Mccormack Other [employer] Other 01-31-2022 16:00-0400 Body weight 114.76 kg Priscila Mccormack Other [employer] Other 01-31-2022 16:00-0400 Diastolic blood pressure 78 mm[Hg] Priscila Mccormack Other [employer] Other 01-31-2022 16:00-0400 SaO2% (BldA) [Mass fraction] 96 % Priscila Mccormack Other [employer] Other 01-31-2022 16:00-0400 Systolic blood pressure 123 mm[Hg] Priscila Mccormack Other [facility] [employer] Other 01-29-2022 09:21-0400 Blood Pressure Location Milla Montoya [facility] 01-29-2022 09:21-0400 Diastolic blood pressure 80 mm[Hg] Milla Montoya [facility] 01-29-2022 09:21-0400 Heart rate 90 /min Milla Montoya [facility] 01-29-2022 09:21-0400 SaO2% (BldA) [Mass fraction] 100 % Milla Montoya [facility] 01-29-2022 09:21-0400 Systolic blood pressure 146 mm[Hg] Milla Montoya [facility] 12-11-2021 23:00-0400 Diastolic blood pressure 80 mm[Hg] Reji Dickinson [facility] 12-11-2021 23:00-0400 Heart rate 58 /min Reji Dickinson [facility] 12-11-2021 23:00-0400 SaO2% (BldA) [Mass fraction] 98 % Reji Dickinson [facility] 12-11-2021 23:00-0400 Systolic blood pressure 148 mm[Hg] Reji Dickinson [facility] 12-11-2021 22:33-0400 Body temperature 98.24 [degF] Reji Dickinson [facility] 12-11-2021 22:33-0400 Diastolic blood pressure 76 mm[Hg] Reji Dickinson [facility] 12-11-2021 22:33-0400 Heart rate 57 /min Reji Dickinson [facility] 12-11-2021 22:33-0400 Respiratory rate 16 /min Reji Dickinson [facility] 12-11-2021 22:33-0400 SaO2% (BldA) [Mass fraction] 97 % Reji Dickinson [facility] 12-11-2021 22:33-0400 Systolic blood pressure 159 mm[Hg] Reji Dickinson [facility] 11-16-2021 09:24-0400 Body height 180.34 cm Rinku R Encinas Work Phone: Located within [facility] 250 DO Work Phone: 11-16-2021 09:24-0400 Body mass index (BMI) [Ratio] 35.29 kg/m2 Rinku R Encinas Work Phone: Located within [facility] 250 DO Work Phone: 11-16-2021 09:24-0400 Body surface area Derived from formula 2.33 m2 Rinku R Encinas Work Phone: Located within [facility] 250 DO Work Phone: 11-16-2021 09:24-0400 Body weight 114.76 kg Rinku R Encinas Work Phone: Located within [facility] 250 DO Work Phone: 11-16-2021 09:24-0400 Diastolic blood pressure 84 mm[Hg] Rinku R Encinas Work Phone: Located within [facility] 250 DO Work Phone: 11-16-2021 09:24-0400 Heart rate 62 /min Rinku R Encinas Work Phone: Located within [facility] 250 DO Work Phone: 11-16-2021 09:24-0400 Systolic blood pressure 122 mm[Hg] Rinku R Encinas Work Phone: Located within [facility] 250 DO Work Phone: 05-08-2021 13:46-0500 Diastolic blood pressure 84 mm[Hg] Rinku R Encinas Work Phone: Located within [facility] 250 DO Work Phone: 05-08-2021 13:46-0500 Systolic blood pressure 126 mm[Hg] Rinku R Encinas Work Phone: Located within [facility] 250 DO Work Phone: 05-08-2021 13:41-0500 Diastolic blood pressure 93 mm[Hg] Rinku R Encinas Work Phone: Located within [facility] 250 DO Work Phone: 05-08-2021 13:41-0500 Systolic blood pressure 132 mm[Hg] Rinku Callahan Encinas Work Phone: Located within [facility] 250 DO Work Phone: 05-08-2021 13:39-0500 Body height 180.34 cm Rinku R Encinas Work Phone: Located within [facility] 250 DO Work Phone: 05-08-2021 13:39-0500 Body mass index (BMI) [Ratio] 35.01 kg/m2 Rinku Sindy Encinas Work Phone: Located within [facility] 250 DO Work Phone: 05-08-2021 13:39-0500 Body surface area Derived from formula 2.32 m2 Rinku R Encinas Work Phone: Located within [facility] 250 DO Work Phone: 05-08-2021 13:39-0500 Body weight 113.85 kg Rinku R Encinas Work Phone: Located within [facility] 250 DO Work Phone: 05-08-2021 13:39-0500 Diastolic blood pressure 87 mm[Hg] Rinku Encinas Work Phone: Located within [facility] 250 DO Work Phone: 05-08-2021 13:39-0500 Heart rate 60 /min Rinku Encinas Work Phone: Located within [facility] 250 DO Work Phone: 05-08-2021 13:39-0500 Systolic blood pressure 136 mm[Hg] Rinku Encinas Work Phone: Located within [facility] 250 DO Work Phone: Encounters Encounter Date Encounter Type Care Provider Facility Start: 05-24-2023 End: 05-25-2023 ambulatory Izaguirre Talal Sarmini Facility:[facility] Start: 05-24-2023 End: 05-25-2023 ambulatory Izaguirre Talal Sarmini Facility:[facility] Start: 05-24-2023 End: 05-24-2023 Patient encounter procedure Izaguirre Talal Sarmini [facility] Start: 05-24-2023 End: 05-24-2023 Patient encounter procedure Izaguirre Talal Sarmini [facility] Start: 05-14-2023 End: 05-14-2023 ambulatory STEPHANIE RODNEY Not Available Start: 05-09-2023 End: 2023 ambulatory Izaguirre Talal Sarmini Facility:[facility] Start: 05-09-2023 End: 05-09-2023 Patient encounter procedure Izaguirre Talal Sarmini [facility] Start: 05-06-2023 End: 05-06-2023 ambulatory Priscila Mccormack Other [facility] [employer] Other Start: 05-06-2023 Telephone encounter Priscila Mccormack [facility] [address] Start: 05-02-2023 End: 05-02-2023 Patient encounter procedure DO Rinku Encinas III Work Phone: [facility] Work Phone: Start: 05-02-2023 End: 05-02-2023 ambulatory DO Rinku R Encinas III Work Phone: [facility] Work Phone: Start: 05-02-2023 Office outpatient vi sit 15 minutes Priscila Mccormack [facility] Start: 03-25-2023 End: 03-25-2023 ambulatory KAYLI PARSON Not Available Start: 03-18-2023 End: 03-19-2023 ambulatory Rinku R Huang Facility:[facility] Start: 03-18-2023 End: 03-18-2023 Patient encounter procedure Izaguirre Paulina Romanmini [facility] Start: 03-06-2023 End: 03-07-2023 ambulatory ANJELICA NATION Facility:[facility] Start: 03-06-2023 End: 03-06-2023 Patient encounter procedure ANJELICA NATION [facility] Start: 03-05-2023 End: 03-06-2023 ambulatory ANJELICA NATION Facility:[facility] Start: 03-05-2023 End: 03-05-2023 Patient encounter procedure ANJELICA NATION [facility] Start: 02-06-2023 End: 02-07-2023 ambulatory Todd CRUZ Facility:[facility] Start: 02-06-2023 End: 02-06-2023 Lab Drop off Todd CRUZ [facility] Start: 02-06-2023 End: 02-06-2023 Patient encounter procedure Todd CRUZ [facility] [place] Start: 12-17-2022 Office outpatient vi sit 25 minutes Rinku Encinas Work Phone: Located within [facility] 250 DO Work Phone: Start: 12-17-[address] Rinku Encinas III Facility: Start: 11-19-2022 ambulatory Zina Posadasi ty:[facility] Start: 10-16-2022 End: 10-17-2022 ambulatory Todd CRUZ Facility:[facility] Start: 10-16-2022 End: 10-16-2022 Patient encounter procedure Todd CRUZ [facility] Start: 10-11-2022 End: 10-12-2022 ambulatory ANJELICA NATION Facility:[facility] Start: 10-11-2022 End: 10-11-2022 Patient encounter procedure ANJELICA Meza MATTHEW [facility] Start: 10-03-2022 End: 10-04-2022 ambulatory ANJELICA Meza MATTHEW Facility:[facility] Start: 10-03-2022 End: 10-03-2022 Lab Drop off ANEJLICA E MATTHEW [facility] Start: 10-03-2022 End: 10-03-2022 Patient encounter procedure ANJELICA E MATTHEW [facility] [place] Start: 05-30-2023 Rx Renewal Rinku harris [facility] Work Phone: Start: 07-02-2022 End: 07-03-2022 ambulatory Jesús Clement Facility:[facility] Start: 07-02-2022 End: 07-02-2022 Patient encounter procedure Tulio Vaughan [facility] Start: 06-24-2022 End: 06-25-2022 Emergency department patient visit Josh Obando Facility:[facility] Start: 06-24-2022 End: 06-24-2022 Emergency department patient visit Josh Grijalva Topher [facility] Start: 06-14-2022 End: 06-14-2022 ambulatory Priscila Mccormack Other [facility] [employer] Other Start: 06-14-2022 Telephone encounter Priscilaalex Mccormack [facility] Start: 05-31-[address] Summer Deshpande Facility: Start: 05-31-2022 Office outpatient vi sit 25 minutes Rinku Encinas [facility] Work Phone: Start: 05-30-2022 End: 05-31-2022 ambulatory Summer Deshpande Facility:[facility] Start: 05-30-2022 End: 05-30-2022 Patient encounter procedure Summer Deshpande [facility] Start: 02-06-2022 End: 02-06-2022 Patient encounter procedure Todd CRUZ [facility] Start: 01-31-2022 End: 01-31-2022 Patient encounter procedure DO Rinku Encinas III Work Phone: [facility] Start: 01-31-2022 End: 01-31-2022 ambulatory DO Rinku Sindy LarsonEncinas III Work Phone: [facility] Work Phone: Start: 01-31-2022 Office outpatient vi sit 25 minutes Priscila Mccormack [facility] Start: 01-29-2022 End: 01-29-2022 Patient encounter procedure Milla ChávezParveen Baxteran [facility] Start: 01-18-2022 End: 01-18-2022 Patient encounter procedure Milla Holder Jan [facility] Start: 12-11-2021 End: 12-11-2021 Emergency department patient visit Reji Dickinson [facility] Start: 11-16-2021 Office outpatient vi sit 25 minutes Rinku Larsoners Work Phone: Located within [facility] 250 DO Work Phone: Start: 10-25-2021 Rx Renewal Rinku Lee rs Work Phone: Located within [facility] 250 DO Work Phone: Start: 08-23-2021 End: 08-23-2021 Patient encounter procedure DO Rinku Larsoners III Work Phone: [facility] Start: 05-08-2021 Office outpatient vi sit 25 minutes Rinku Larsoners Work Phone: Located within [facility] 250 DO Work Phone: Procedures Date [...] Summer Deshpande, Status: Pen, Time: 9:20 AM [place] [address] DO Work Phone: Start: 11-29-2022 FUV, Provider: Summer Deshpande, Status: Pen, Time: 9:10 AM [facility]UV, Provider: Summer Deshpande, Status: Pen, Time: 9:10 AM [facility] 250 DO Work Phone: Start: 05-31-2022 FUV, Provider: Summer Deshpande, Status: Pen, Time: 9:00 AM FUV, Provider: Summer Deshpande, Status: Pen, Time: 9:00 AM [facility] 250 DO Work Phone: Start: 11-16-2021 FUV, Provider: Summer Deshpande, Status: Pen, Time: 9:00 AM FUV, Provider: Summer Deshpande, Status: Pen, Time: 9:00 AM [facility] 250 DO Work Phone: Immunizations Immunization Date Immunization Notes Care Provider Jayleen browning 02-19-2023 influenza virus vaccine, unspecified formulation ANJELICA NATION [facility] 02-05-2022 Fluzone High-Dose Quadrivalent 0.7 ML Intramuscular Suspension Prefilled Syringe Rinku Encinas Work Phone: [facility] 250 DO Work Phone: 02-05-2022 influenza virus vaccine, unspecified formulation Summer Deshpande [facility] 01-16-2022 SARS-CoV-2 (COVID-19 ) [id number] Summer Longoahim [facility] 03-01-2021 Moderna COVID-19 Vaccine 100 MCG/0.5ML Intramuscular Suspension Rinku Encinas Work Phone: [place] [address] DO Work Phone: 02-21-2021 influenza virus vaccine, unspecified formulation Summer Alvarengaim [facility] 02-21-2021 influenza, high dose seasonal, preservative-free Rinku Encinas Work Phone: [place] [address] DO Work Phone: 12-29-2020 tetanus toxoid, redu ivan diphtheria toxoid, and acellular pertussis vaccine, adsorbed Rinku Encinas Work Phone: [facility] 250 DO Work Phone: 06-22-2020 Moderna COVID-19 Vaccine 100 MCG/0.5ML Intramuscular Suspension Rinku Encinas Work Phone: [facility] 250 DO Work Phone: Comment on above: Reason for Medicatio n: Other (see comment) 05-25-2020 Moderna COVID-19 Vaccine 100 MCG/0.5ML Intramuscular Suspension Rinku Encinas Work Phone: [place] [address] DO Work Phone: Comment on above: Reason for Medicatio n: Other (see comment) 02-08-2020 influenza virus vaccine, unspecified formulation Wheeler Deshpande [facility] 02-08-2020 influenza, high dose seasonal, preservative-free Rinku Encinas Work Phone: [place] [address] DO Work Phone: 05-16-2018 pneumococcal conjuga te vaccine, 13 valent Rinku Sindy Encinas Work Phone: [facility] 05-08-2018 pneumococcal conjuga te vaccine, 13 valent Rinku Sindy LarsonEncinas Work Phone: [place] [address] DO Work Phone: 04-29-2018 influenza virus vaccine, unspecified formulation Rinku Encinas Work Phone: [place] [address] DO Work Phone: 04-28-2018 influenza virus vaccine, unspecified formulation Wheeler Deshpande [facility] 05-08-2017 pneumococcal polysaccharide vaccine, 23 valent Rinku Sindy Encinas Work Phone: [place] [address] DO Work Phone: 02-27-2017 influenza virus vaccine, unspecified formulation Rinku Encinas Work Phone: [place] [address] DO Work Phone: 02-16-2017 influenza virus vaccine, unspecified formulation Wheeler Deshpande [facility] 02-16-2017 influenza, seasonal, injectable, preservative free Rinku R Encinas Work Phone: [place] [address] DO Work Phone: 05-08-2016 influenza virus vaccine, unspecified formulation Rinku Encinas Work Phone: [place] [address] DO Work Phone: 01-30-2016 influenza virus vaccine, unspecified formulation Wheeler Deshpande [facility] 01-30-2016 influenza, seasonal, injectable Rinku Encinas Work Phone: [place] [address] DO Work Phone: 01-30-2016 pneumococcal polysaccharide vaccine, 23 valent Rinku Encinas Work Phone: [facility] 03-29-2015 pneumococcal vaccine , unspecified formulation Rinku Encinas Work Phone: [place] [address] DO Work Phone: 02-27-2015 influenza virus vaccine, unspecified formulation Rinku Encinas Work Phone: [place] [address] DO Work Phone: 02-22-2015 influenza virus vaccine, unspecified formulation Wheeler Deshpande [facility] 04-16-2014 pneumococcal polysaccharide vaccine, 23 valent Reji Dickinson [facility] Comment on above: Early/Late Reason: N nikolaying Judgment 03-03-2014 influenza virus vaccine, unspecified formulation Rinku Encinas Work Phone: [place] [address] DO Work Phone: 02-16-2014 influenza virus vaccine, unspecified formulation Wheeler Deshpande [facility] 02-16-2014 influenza, seasonal, injectable Rinku Encinas Work Phone: [facility] 250 DO Work Phone: 02-18-2013 influenza virus vaccine, unspecified formulation Wheeler Deshpande [facility] 02-18-2013 influenza, high dose seasonal, preservative-free Rinku Encinas Work Phone: [place] [address] DO Work Phone: 01-27-2013 influenza virus vaccine, unspecified formulation Rinku Encinas Work Phone: [place] [address] DO Work Phone: 01-04-2013 zoster vaccine, live Wheeler Deshpande [facility] 12-28-2012 zoster vaccine, live Rinku Encinas Work Phone: [place] [address] DO Work Phone: NEGATED: Highlighted row has not occurred!02-18-2023 influenza virus vaccine, unspecified formulation ANJELICA NATION [facility] Payers Date Payer Category Payer Private Health Insurance [place] [id number] 2022 Self-pay [id number] 1945 Unknown [id number] 2.16. [id number] 1945 Unknown [id number] 2.16. [id number] 1945 Unknown [id number] 2.16.84 0.1.496840.3.579.2.1259 1945 Unknown [id number] 2.16.840 .1.859573.3.579.2.9 1945 Unknown [id number] 2.16.8 40.1.518495.3.579.2.7 1945 Unknown [id number] 2.16.8 40.1.983045.3.579.2. 1945 Unknown [id number] 2.16.8 40.1.275511.3.579.2. 1946 Unknown [id number] 2.16.8 40.1.867312.3.579.2. 1945 Unknown [id number] 2.16.8 40.1.424858.3.579.2. 1945 Unknown [id number] 2.16.8 40.1.328914.3.579.2 1945 Unknown [id number] 2.16.8 40.1.129520.3.579.2. 1946 Unknown [id number] 2.16.8 40.1.276130.3.579.2. 1946 Unknown [id number] 2.16.8 40.1.732136.3.579.2. 1946 Unknown [id number] 2.16.8 40.1.765665.3.579.2 1946 Unknown [id number] 2.16.8 40.1.923106.3.579.2 1946 Unknown [id number] 2.16.8 40.1.920863.3.579.2 1946 Unknown [id number] 2.16.8 40.1.829692.3.579.2 1946 Unknown [id number] 2.16.8 40.1.351856.3.579.2 1946 Unknown [id number] 2.16.8 40.1.071805.3.579.2.727 1945 Unknown [id number] 2.16.8 40.1.016111.3.579.2.727 Private Health Insurance [facility] [id number] Unknown [employer] Unknown [id number] 2.16.8 40.1.702971.3.579.2.531 Social History Date Type Detail Facility No alcohol use No alcohol use [facility] 250 DO Work Phone: Comment on above: 1-2 cups of coffee; Start: 1945 Sex Assigned At Male [facility] Tobacco [facility] Comment on above: Denies. Sex Assigned At Male [facility] Tobacco smoking status No Smokin g Status Entered [facility] Start: 02-07-2022 End: 05-24-2023 Tobacco smoking status Never smoked tobacco (finding) [facility] Tobacco smoking status Never [facility] Medical Equipment Procedure Code Equipment Code Equipment Origin al Text Equipment Identifier Dates KNEE TOTAL ROBOT ARTHROPLASTY Tulio Vaughan DO 06/27/21 Non Biological Knee R [id number]}[id number] FDA Start: 06-27-2021 Unknown Unknown 05/09/23 Non Biological Unknown FDA Start: 05-09-2023 FDA Start: 05-09-2023 Unknown Unknown 05/09/23 Non Biological Unknown FDA Start: 05-09-2023 FDA Start: 05-09-2023 Unknown Unknown 05/09/23 Non Biological Unknown FDA Start: 05-09-2023 FDA Start: 05-09-2023 Functional Status Date Assessment Result Facility 05-24-2023 Functional Status N/A [facility] 05-09-2023 Functional Status N/A [facility] 03-18-2023 Functional Status N/A [facility] 03-06-2023 Functional Status N/A [facility] [place] 10-16-2022 Functional Status N/A [facility] 10-03-2022 Functional Status N/A [facility] [place] 06-24-2022 Functional Status N/A [facility] 01-29-2022 Functional Status No [facility] 12-11-2021 Functional Status N/A [facility] Clinical Notes 04-29-2011 to 2023 Note Date & Type Note Facility 2023 Note [id number] [facility] 05-09-2023 Note Endoscopy Care After [...] Document Re-Released: 10/07/2006 ExitCare? Patient Information ?2009 [employer]. Colonoscopy Care After Surgery Please read the [...] through easily. You (more content not included)... [facility] 05-09-2023 Hospital Discharg e instructions Patient Education 05/09/2023 10:37:16 Endoscopy, Care After Procedure [facility] ([facility]) Endoscopy Care After Procedure Please read [...] blood. Document Released: 11/27/2004 Document Re-Released: 10/07/2006 [employer] Patient Information 2010 [employer]. 05/09/2023 10:37:12 Siu's Esophagus Siu's Esophagus Siu's [...] drinks. ?Tomatoes and foods made with tomatoes. ?Hamler or spicy foods. ?Chocolate and peppermint. Do not drink alcohol. General instructions Take sssn-wvd-etzueaf and prescription medicines only as told by [...] provider. Document Revised: 07/02/2020 Document Reviewed: 07/02/2020 [employer] Patient Education 2022 [employer]™ Audio. 05/09/2023 10:36:59 Esophagitis Esophagitis Esophagitis is inflammation [...] Follow these instructions at home: Medicines Take zaun-zjx-dyveczm and prescription medicines only as told by [...] powder, vinegar, hot sauces, and barbecue sauce. ?Appling fruit juices and citrus fruits, such as oranges, mati, and limes. ?Tomato-based foods, such as red sauce, chili, salsa, and pizza with red sauce. ?Fried and fatty foods, such as donuts, belarusian fries, potato chips, and high-fat dressings. ?High-fat [...] provider. Document Revised: 10/24/2020 Document Reviewed: 10/24/2020 [employer] Patient Education 2022 ClearView™ Audio. 05/09/2023 10:36:53 Gastritis, Adult, Bnmh-vn-Jgkh Gastritis, Adult Gastritis is irritation and swelling [...] Follow these instructions at home: Medicines Take xunv-ueg-qyyzoqw and prescription medicines only as told by [...] provider. Document Revised: 08/19/2021 Document Reviewed: 08/19/2021 [employer] Patient Education 2022 ClearView™ Audio. 05/09/2023 10:36:47 Hiatal Hernia Hiatal Hernia A [...] reduce GERD symptoms. Medicines. These may include: ?Cskv-ohg-hnjhpsv antacids. ?Medicines that make your stomach empty [...] may include: ?Fatty foods, like fried foods. ?Appling fruits, like oranges or lemon. ?Other foods [...] Do not drink alcohol. General instructions Take bbtd-iic-rqterbf and prescription medicines only as told by [...] provider. Document Revised: 06/12/2022 Document Reviewed: 06/12/2022 [employer] Patient Education 2022 ClearView™ Audio. 05/09/2023 10:36:43 Colonoscopy, Care After Surgery Salam [...] hard liquor (44 mL). General instructions Take xaur-ltb-lytcxcu and prescription medicines only as told by [...] provider. Document Revised: 08/03/2020 Document Reviewed: 08/03/2020 [employer] Patient Education 2022 ClearView™ Audio. 05/09/2023 10:36:39 Diverticulosis MAGR (CUSTOM) Diverticulosis Many [...] unsweetened, w/added ascorbic acid 1 cup 0.5 [place] 1 cup 0.7 Vegetables Cooked Green beans 1 cup 4.0 Carrots 1/2 cup sliced 2.3 Peas 1 cup 8.8 Potato (baked, with skin) 1 medium potato 3.8 Raw [place] (with peel) 1 cucumber 1.5 Lettuce 1 [...] 8.7 Peanuts 1/2 cup 7.9 Chart from [facility] 2013. SEEK IMMEDIATE MEDICAL CARE IF: You [...] Information adapted from: ExitCare Patient Information 2009 [employer]. [employer] 2012 [email or web address].Yones/contents /uwunfvpqbzur-ztnkzfz-eyjdse-the -basics 05/09/2023 10:36:37 Hemorrhoids, Psqa-xj-Qmuz Hemorrhoids Hemorrhoids are swollen veins that may [...] 3 times a day. General instructions Take jian-gne-oomykit and prescription medicines only as told by [...] provider. Document Revised: 10/25/2021 Document Reviewed: 10/25/2021 [employer] Patient Education 2022 [employer] Inc. Follow Up Care 03/18/2023 11:12:58 With:Tram DOUGLASS, JESSE Wahl, [facility] Address: [address], [address] [phone] When: Unknown Comments:Call for any problems. Office to call for follow up appointment. [facility] 05-02-2023 Evaluation note Encounter Date Diagnosis Assessment [...] prescription. A prescription was sent to the [employer] for new supplies throughout the year, as [...] in a timely fashion. Do not smoke. [facility] Other 11-08-2023 Hospital Discharge instructions Patient Education [...] treatment? Where to find more information [employer] [employer]: www.cancer.org [place] [employer]: www.auanet.org Contact a health care [...] provider. Document Revised: 10/09/2021 Document Reviewed: 10/09/2021 [employer] Patient Education 2022 ClearView™ Audio. Follow Up Care 02/07/2022 09:23:28 With:ANJELICA NATION PA-C, URL Address: [address] [place] [address] [phone] When: Unknown Comments:1 yr w/ PSA [facility] 10-09-2023 Note From: Jane Li I To: [facility] - Administrative; Sent: 11/26/2022 15:31:32 EDT Show up: 01/27/2023 15:31:00 EDT Subject: Colonoscopy Recall Reminder/Recall Please call and schedule in office with Dr. Ugalde/Kera for a surveillance colonoscopy. Patient scheduled for 02/19/[address] Ugalde.[facility] 10-16-2022 Evaluation + Plan noteExtracted from: Title:EU Local Male Cystosco py w/ or w/o UD - FT Author:Todd CRUZ MD Date:10/16/22 Patient: ESTRADA PFEIFFER Age: 77 [...] Date:02/13/2023 08:30:00 AM Scheduled Provider:Todd CRUZ MD Location:[facility] Appointment Type:URO Office Visit Diagnostic Tests Pending * UroVysion Fish and Urine Cyto ([facility]) 10/16/22 [facility]06-20-2023 Note [id number]:127[facility] 10-16-2022 Hospital Discharge instructions Patient [...] [facility] [address] , [place] [address]- Business (1) When: Unknown Comments:Keep scheduled appointment [facility]06-20-2023 NoteCustom Cystoscopy ? Voiding after the procedure: [...] fever over 100 degrees.[facility] 10-03-2022 Hospital Discharge instructions Patient [...] Follow these instructions at home: Medicines Take hleo-rza-kkpibts and prescription medicines only as told by [...] or the blood stops without treatment. Take qtuk-qsv-cvylriz and prescription medicines only as told by your health care provider. Drink enough fluid to keep your urine pale yellow. This information is not intended to replace advice given to you by your health care provider. Make sure you discuss any questions you have with your health care provider. Document Revised: 12/14/2020 Document Reviewed: 12/14/2020 [employer] Patient Education 2022 ClearView™ Audio. Follow Up Care 09/06/2022 09:26:45 With:ANJELICA NATION PA-C, URL Address: [address] [place] [address] When: Unknown [facility] 02-27-2023 Hospital Discharge instructions Patient Education 06/24/2022 [...] 11/27/2004 Document Revised: 03/28/2018 Document Reviewed: 03/06/2018 [employer] Patient Education 2020 ClearView™ Audio. Follow Up Care 06/24/2022 21:38:40 With:Tulio Vaughan Address: [address] [place] [address]- Business (1) When:06/27/2022 With:Rinku Encinas Address: [address] [place] [address]- Business (1) When:Within 3 Day(s) [facility]10-05-2022 Evaluation note* Encounter Date Diagnosis Assessment Notes Treatment Notes Treatment Clinical Notes Jan, Obstructive sleep apnea (ICD-10 - G47.33) Fortunately patient is using and benefiting from treatment. Download was reviewed with patient. His AHI is elevated at 11.7. We will go ahead and increase his pressure settings to 15/8 to eliminate some breakthrough apneas, an order was sent to the [employer] to have these completed. A prescription was also sent to the [employer] for new supplies throughout the year, as [...] of weight loss on KATHY were reviewed. [facility] Other 08-16-2022 Hospital Discharge instructions Patient Education [...] veins using minimally invasive surgery (subfascial endoscopic flight communications operator vein surgery). This method may be used in advanced cases. Follow these instructions at home: Medicines Take and use ccig-mos-ppowpyx and prescription medicines and creams only as [...] 09/01/2009 Document Revised: 10/27/2018 Document Reviewed: 10/27/2018 [employer] Patient Education 2020 ClearView™ Audio. Follow Up Care 12/11/2021 22:19:17 With:Milla Montoya Address: [address] [place] [phone] Business (1) When:12/14/2021 Comments:Call this vascular surgeon to discuss potential therapies for her varicose veins should they continue to become symptomatic. With:Rinku Encinas Address: [address] [place] [address] [place] [address] Business (1) When:12/14/2021 Comments:Call the office of [...] to the area. Return with further bleeding. [facility]01-01-2012 History general Narrative - Reported* Type Description Date Medical History Hypertension Medical History BPH Medical History severe KATHY Medical History CAD, one stent Medical History prostate cancer 2011 Surgical History Cardiac Stent Placement 04/2011 Surgical History Seed Implant 06/2011 Surgical History Sebaceous Cyst Excised 2008 Hospitalization History see surgical hx [facility] Other Evaluation + Plan note Future Appointments Appointment Date:02/07/2022 08:30:00 AM Scheduled Provider:Todd CRUZ MD Location:[facility] [place] Appointment [facility]O [facility] Future App[facility]ments Appointment Date:01/29/2022 09:15:00 AM Scheduled Provider:Milla Mont[facility] Follow Up (FT) Appointment Date:02/07/2022 08:30:00 AM Scheduled Provider:Todd CRUZ MD Location:[facility] [place] Appointment Type:URO [facility] Future Appointments Appointment Date:02/13/2023 08:30:00 AM Scheduled Provider:Todd CRUZ MD Location:[facility] [place] [facility] Future Appointments Appointment Date:02/13/2023 08:30:00 AM Scheduled Provider:Todd CRUZ MD Location:[facility] [place] Appointment Type:URO Office Visit Future Scheduled Tests Radiology* CT Abdomen/Pelvis w/o Contrast 10/03/22 [facility] evaluation + Plan note Future Appointments Appointment Date:02/13/2023 08:30:00 AM Scheduled Provider:Todd CRUZ MD Location:[facility] [place] Appointment Type:URO Office Visit Diagnostic Tests Pending * Urine Culture 10/03/22 Future Scheduled Tests Radiology* CT Abdomen/Pelvis w/o Contrast 10[facility]03[facility]22 [facility] Plan note Future Appointments Appointment Date:10/16/2022 08:30:00 AM Scheduled Provider: Location:[facility] Appointment Type:Urology FT Appointment Date:02/13/2023 08:30:00 AM Scheduled Provider:Todd CRUZ MD Location:[facility] [place] Appointment Type:URO [facility] Future App[facility]ments Appointment Date:02/13/2023 08:30:00 AM Scheduled Provider:Todd CRUZ MD Location:[facility] [place] Appointment Type:URO Office Visit Appointment Date:02/19/2023 03:00:00 PM Scheduled Provider:Zina Ugalde MD Location:[facility] Appointment Type:BAD New Patient [facility] Evaluation + Plan note Future Appointments Appointment Date:02/13/2023 08:30:00 AM Scheduled Provider:Todd CRUZ MD Location:[facility] Appointment Type:URO Office Visit Appointment Date:02/19/2023 03:00:00 PM Scheduled Provider:Zina Ugalde MD Location:[facility] Appointment Type:[facility] New Patient Diagnostic Tests Pending * UroVysion Fish and Urine Cyto ([facility]) 02[facility]06/23 [facility] Future App[facility]ments Appointment Date:03/06/2023 03:00:00 PM Scheduled Provider:ANJELICA NATION PA-C Location:[facility] Appointment Type:URO Office Visit Appointment Date:03/18/2023 10:15:00 AM Scheduled Provider:Zina Ugalde MD Location:[facility] Appointment Type:[facility] Future Appointments Appointment Date:03/18/2023 10:15:00 AM Scheduled Provider:iZna Ugalde MD Location:[facility] Appointment Type:BAD New Patient Appointment Date:03/12/2024 08:30:00 AM Scheduled Provider:ANJELICA NATION PA-C Location:[facility] Appointment Type:URO Office Visit Future Scheduled Tests Laboratory* PSA Total 03/06/24 [facility] Evaluation + Plan note Future Appointments Appointment Date:05/09/2023 10:00:00 AM Scheduled Provider: Keisha:[facility] Appointment Type:Surgery FT Appointment Date:03/12/2024 08:30:00 AM Scheduled Provider:ANJELICA NATION PA-C Location:[facility] Appointment Type:URO Office Visit Future Scheduled Tests Laboratory* PSA Total 03/06/24 * CBC w/ Auto Diff 03/18/23 * Comprehensive Metabolic Panel 03/18/23 [facility] Evaluation + Plan note Future Appointments Appointment Date:03/12/2024 08:30:00 AM Scheduled Provider:ANJELICA NATION PA-C Location:[facility] Appointment Type:URO Office Visit Future Scheduled Tests Laboratory* PSA Total 03/06/24 * CBC w/ Auto Diff 03/18/23 * Comprehensive Metabolic [facility] Future App[facility]ments Appointment Date:03/12/2024 08:30:00 AM Scheduled Provider:ANJELICA NATION PA-C Location:[facility] Appointment Type:URO Office Visit Future Scheduled Tests Laboratory* PSA Total 03/06/24 [facility] Evaluation noteNo assessment information available [facility] Work Phone: Evalutobyo noteNo InformationNortSpecial Care Hospital [facility] Other Hospital course Narrative No data available for this section [facility] No data available for this section [facility] No data available for this section [facility] Chief Complaint * ESTRADA PFEIFFER is being [...] several months ago by vascular surgery at [facility]. Lipid profile from recent testing [...] he had venous stripping last year at [facility] * 6. Sleep apnea on CPAP machine [...] he had venous stripping last year at [facility] * 6. Sleep apnea on CPAP machine [...] section and content) DATE CREATED AUTHOR 12/18/2022 [facility] DATE CREATED AUTHOR AUTHOR'S ORGANIZ ATION 12/18/2022 [employer] DATE CREATED AUTHOR AUTHOR'S ORGANIZ ATION 05/09/2023 [facility] DATE CREATED AUTHOR AUTHOR'S ORGANIZ ATION 05/15/2023 [facility] DATE CREATED AUTHOR AUTHOR'S ORGANIZ ATION 05/26/2023 [facility] FOR RECORDS PERTAINING TO PATIENTS WHO [...] BE BASED ON THE PRIMARY CLINICAL RECORDS. [employer] provides no warranty or guarantee of the accuracy or completeness of information in this document.
== END 2023-06-05 12:59 | disposition home or self-care (01) ==
LOC: VC 12:58
PROVIDERS: Family Provider Family Medicine; PCP Radiology Diagnostic Radiology; Visit Provider Radiology Diagnostic Radiology
DX: I80.02 Phlebitis and thrombophlebitis of superficial vessels of left lower extremity (principal)
CPT/HCPCS: 93971; G0463

== ENCOUNTER 2023-06-19 09:06 | Outpatient (OUT) | payer MEDICARE, SELFPAY ==
--- NOTE | 2023-06-19 09:08 | VEIN_ITS ---
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 A sterile cover was draped over a 16 mhz ultrasound probe. Venous mapping was performed prior to the procedure noting location and size of vessel(s). Engineer Process vein 1: Left leg: Mid medial lower leg. The diameter of the vein ranged from 4.8 mm's below the muscular fascia to 4.8 mm's at the entry point. Using a 30 gauge needle the entry site was anesthetized with 0.5 cc of 1% buffered lidocaine. Access was gained percutaneously, with a 21-gauge needle, into the roaster supervisor vein under ultrasound guidance. The needle was advanced into the desired position and the pre-measured 400-micron fiber was then inserted into the needle and locked in place. The position of the fiber was imaged with ultrasound guidance. The fiber tip was visualized to be 10 mm from the deep vessel. An anesthetic solution of 5 cc 1% buffered lidocaine was delivered along the course of the vein under ultrasound guidance using a syringe. A final positioning check of the laser fiber tip was performed. The laser was activated by means of a foot-pedal and the fiber and needle were withdrawn together in accordance to the desired joules per treatment area/spot weld. 3 areas/spot welds were performed, and the total number of joules delivered was 181. The total time of energy delivery was 22 seconds. A duplex ultrasound revealed compressibility and flow of the deep system immediately after the procedure. Hemostasis of the access site was achieved and dressed. A 20-30 mm compression stocking over coban was placed on the treated leg. Post-Op instructions were given, and a follow-up appointment was made. Engineer Process vein 2: Left leg: Distal medial lower leg. The diameter of the vein ranged from 4.0 mm's below the muscular fascia to 4.0 mm's at the entry point. Using a 30 gauge needle the entry site was anesthetized with 0.5 cc of 1% buffered lidocaine. Access was gained percutaneously, with a 21-gauge needle, into the roaster supervisor vein under ultrasound guidance. The needle was advanced into the desired position and the pre-measured 400-micron fiber was then inserted into the needle and locked in place. The position of the fiber was imaged with ultrasound guidance. The fiber tip was visualized to be 10 mm from the deep vessel. An anesthetic solution of 5 cc 1% buffered lidocaine was delivered along the course of the vein under ultrasound guidance using a syringe. A final positioning check of the laser fiber tip was performed. The laser was activated by means of a foot-pedal and the fiber and needle were withdrawn together in accordance to the desired joules per treatment area/spot weld. 3 areas/spot welds were performed, and the total number of joules delivered was 158. The total time of energy delivery was 22 seconds. A duplex ultrasound revealed compressibility and flow of the deep system immediately after the procedure. Hemostasis of the access site was achieved and dressed. A 20-30 mm compression stocking over coban was placed on the treated leg. Post-Op instructions were given, and a follow-up appointment was made. Engineer Process vein 3: Left leg: Distal medial lower leg. The diameter of the vein ranged from 3.9 mm's below the muscular fascia to 3.9 mm's at the entry point. Using a 30 gauge needle the entry site was anesthetized with 0.5 cc of 1% buffered lidocaine. Access was gained percutaneously, with a 21-gauge needle, into the roaster supervisor vein under ultrasound guidance. The needle was advanced into the desired position and the pre-measured 400-micron fiber was then inserted into the needle and locked in place. The position of the fiber was imaged with ultrasound guidance. The fiber tip was visualized to be 10 mm from the deep vessel. An anesthetic solution of 5 cc 1% buffered lidocaine was delivered along the course of the vein under ultrasound guidance using a syringe. A final positioning check of the laser fiber tip was performed. The laser was activated by means of a foot-pedal and the fiber and needle were withdrawn together in accordance to the desired joules per treatment area/spot weld. 2 areas/spot welds were performed, and the total number of joules delivered was 120. The total time of energy delivery was 15 seconds. A duplex ultrasound revealed compressibility and flow of the deep system immediately after the procedure. Hemostasis of the access site was achieved and dressed. A 20-30 mm compression stocking over coban was placed on the treated leg. Post-Op instructions were given, and a follow-up appointment was made. CONCLUSION: 1. Technically successful endovenous laser ablation of lower left leg 3 roaster supervisor veins Electronically authenticated by: LUCIANA MORIN Date: 06/19/2023 10:25
[2023-06-19] MEDS: LIDOCAINE HCL 20 ML, SODIUM BICARBONATE 2 MEQ INJ (09:09)
--- OUTSIDE RECORDS SUMMARY | 2023-06-19 09:10 | XMS_ITS | CCD ---
Author Name Unknown Address [address] [place] [address] Organization [facility] Care Team Providers Care Legal File Clerk Name Role Phone Rinku Encinas Unavailable Unavailable Unavailable DO Rinku Encinas III Primary Care Provider MD Tulio Hniojosa Attending Provider Rinku Encinas III Primary Care Physician [phone] Asuncion Gonzales Unavailable Unavailable DO Rinku Encinas III Primary Care Provider RENEE Mccormack Priscila Attending Provider [phone] Mccormack, Priscila Unavailable Unavailable Unavailable Dr. Rinku Encinas III Primary Care Helena Deshpande, Dr. Summer Douglas Referring Linda vailable Jeramy, Dr. Summer Douglas Attending Linda lincoln Deshpande, Dr. Summer Douglas Attending Linda lincoln Encinas III, Dr. Rinku Callahan Primary Care Helena Deshpande, Dr. Summer Douglas Referring Linda vailaDO Rinku Holbrook III Primary Care Provider [place], DIRECTOR [employer] Priscila Attending Provider STEPHANIE RODNEY Attending Unavailable STEPHANIE RODNEY Referring Unavailable KAYLI PARSON Attending Unavailable Zina Ugalde Attending Unavaila Rinku Holbrook Referring Unavailable Zina Ugalde Attending Unavaila ANJELICA Scherer Attending Unavailable ANJELICA NATION Attending Unavailable ANJELICA NATION Attending Unavailable MATTHEW, ANJELICA Meza Admitting Unavailable MATTHEW, ANJELICA Meza Attending Unavailable CRUZ, Todd Callahan Admitting Unavailable CRUZ, Todd Callahan Attending Unavailable Sarmini, Znia Gallardo Admitting Unavaila ble Sarmini, Zina Gallardo Attending Unavaila ble Deshpande, Wheeler Admitting Unavailable Deshpande, Wheeler Attending Unavailable Topher, Josh SParveen Attending Unavailable Sarmini, Zina Gallardo Admitting Unavaila ble Sarmini, Zina Gallardo Attending Unavaila ble Sarmini, Zina Ashtonal Referring Unavaila ble CRUZ, Todd R Admitting Unavailable CRUZ, Todd Callahan Attending Unavailable CRUZ, Todd R Referring Unavailable Pocos, Tulio Quiñonez Admitting Unavailable Pocos, Tulio Quiñonez Attending Unavailable Pocos, Tulio Quiñonez Referring Unavailable MATTHEW, ANJELICA E Referring Unavailable MATTHEW, ANJELICA Meza Admitting Unavailable MATTHEW, ANJELICA Meza Attending Unavailable MATTHEW, ANJELICA Meza Admitting Unavailable MATTHEW, ANJELICA Meza Attending Unavailable CRUZ, Todd Callahan Attending Unavailable Mccormack, Priscila Attending Unavailable Mccormack, Priscila Admitting Unavailable Rinku Encinas III Primary Care Unavailabl e Allergies Allergy Classification Reported Allergen(s) Allergy Type Date of Onset Reaction(s) Facility (7 sources) Iodine; Translations: [Iodine SOLN] Drug Allergy Itching, Rash [place] [address] DO Work Phone: (20 sources) Penicillins; Translations: [Penicillins] Allergy to drug (finding) Unknown (qualifier value) [place] [address] DO Work Phone: (12 sources) shellfish, unspecified; Translations: [shellfish] Allergy to substance (finding) Difficulty breathing (finding) [facility] (20 sources) Sulfonamides (Antibiotic); Translations: [Sulfa Drugs] Allergy to drug (finding) Discoloration of skin (finding) [place] [address] DO Work Phone: (19 sources) Calcium Carbonate; Translations: [calcium carbonate] Drug Allergy Swelling, Hives [facility] Comment on above: calcium sulfate (20 sources) Iodine; Translations: [iodine] Drug Allergy Hives, Swelling [facility] (16 sources) Shellfish; Translations: [shellfish] Drug allergy Difficulty breathing (finding) [facility] (19 sources) Fish 1 Propensity to adverse reactions to substance Difficulty breathing (finding) [facility] Comment on above: trout (4 sources) Penicillin Drug Allergy swelling [facility] Other (4 sources) Sulfonamides (Antibiotic) Propensity to adverse reactions rash [facility] Other (1 source) Calcium; Translations: [Calcium] Drug Allergy [facility] Repository (1 source) Fish - dietary; Translations: [Fish] Propensity to adverse reactions (disorder) [facility] Rep[facility] (1 source) Penicillins Drug allergy (disorder) 05-02-19 24 [facility] Repository (1 source) Sulfonamides (Antibiotic) Drug allergy (disorder) 05-02-19 [facility] Medications Current Medications Medication Drug [...] constipation, # 40 cap(s), Refills(s) 0, Pharmacy: [facility], 180, cm, 06/06/21 15:55:00 EST, Height/Length Dosing, 113.6, kg, 06/06/21 15:55:00 EST, Weight Dosing Start Date: 06/27/21 Status: Ordered finasteride 5 mg oral tablet (20 sources) 5-alpha Reductase Inhibitor Start: 05-22-2023 End: 06-21-2023 take 1 tablet by mouth once daily finasteride 5 mg Tab 5 mg = 1 tab(s), Oral, Daily, # 90 tab(s), Refills(s) 3, Pharmacy: [facility], 180, cm, 05/09/23 9:28:00 EST, Height/Length Dosing, 112, kg, 05/09/23 9:28:00 EST, Weight Dosing Start Date: 05/22/23 Status: Ordered Start: 05-18-2020 take 1 tablet by dedrick th once daily finasteride 5 mg Tab 5 mg = 1 tab(s), Oral, Daily, # 90 tab(s), Refills(s) 3, Pharmacy: [facility], 180, cm, 10/16/22 8:31:00 EDT, [...] day(s), # 180 cap(s), Refills(s) 6, Pharmacy: [facility], 180, cm, 05/09/23 9:28:00 EST, Height/Length [...] 7days, # 40 tab(s), Refills(s) 0, Pharmacy: [facility], 180, cm, 06/06/21 15:55:00 EST, Height/Length [...] completed, # 2 tab(s), Refills(s) 0, Pharmacy: [facility], 180, cm, 10/03/22 13:53:00 EDT, Height/Length [...] [Coronary atherosclerosis of unspecified type of vessel, venetie or graft] 06-27-2021 Chronic Coronary atherosclerosis and [...] unspecified lower extremity with other complications] Onset: 08-15-2022 Episodic Past or Other Problems Problem Classification [...] CASTRO, ANJELICA Meza Where: [facility] CBC w/ Auto Diffon 4 Basophil Absolute 0.1 E9/L Normal 0.0-0.2 [facility] Comment on above: Performed By: #### 2 145586, 3474141, [id number] ####[address] [address] Basophils/100 WBC (Bld) 1.0 % Normal 0.0-2.0 [facility] Comment on above: Performed By: #### 2 841812, 3051601, 77117552 ####[address] [address] Eos Absolute 0.2 E9/L Normal 0.0-0.5 [facility] Comment on above: Performed By: #### 2 820237, 7194813, [id number] ####[address] [address] Eosinophils/100 WBC (Bld) 2.7 % Normal 0.0-8.0 [facility] Comment on above: Performed By: #### 2 346104, 1971934, 53051677 ####[address] [address] Erythrocyte distribution width (RBC) [Ratio] 13.7 % Normal 10.9-14.2 [facility] Comment on above: Performed By: #### 2 702907, 2935844, 45255404 ####[address] [address] Hematocrit (Bld) [Volume fraction] 40.0 % Normal 37.7-49.0 [facility] Comment on above: Performed By: #### 2 889173, 2654783, 19705535 ####[address] [address] Hemoglobin (Bld) [Mass/Vol] 13.2 g/dL Low 13.5-17.5 [facility] Comment on above: Performed By: #### 2 376927, 7877149, 42239672 ####[address] [address] Lymph Absolute 2.0 E9/L Normal 1.0-4.0 [facility] Comment on above: Performed By: #### 2 003326, 0620315, 93734462 ####[address] [address] Lymphocytes/100 WBC (Bld) 35.0 % Normal 14.0-50.0 [facility] Comment on above: Performed By: #### 2 493533, 0002325, 61748296 ####[address] [address] MCH (RBC) [Entitic mass] 29.1 pg Normal 27.0-34.0 [facility] Comment on above: Performed By: #### 2 449651, 3225377, 70514750 ####[address] [address] MCHC (RBC) [Mass/Vol] 33.0 g/dL Normal 31.4-36.0 [facility] Comment on above: Performed By: #### 2 586199, 9009938, 70921991 ####[address] [address] MCV (RBC) [Entitic vol] 88.3 fL Normal 80.0-100.0 [facility] Comment on above: Performed By: #### 2 870449, 4019006, 07973483 ####[address] [address] [place] Absolute 0.6 E9/L Normal 0.2-1.0 [facility] Comment on above: Performed By: #### 2 151583, 5978079, 43784619 ####[address] [address] Monocytes/100 WBC (Bld) 10.1 % Normal 4.0-14.0 [facility] Comment on above: Performed By: #### 2 790768, 7553828, 29849870 ####[address] [place] [address] Neutro Absolute 2.9 E9/L Normal 2.0-7.5 [facility] Comment on above: Performed By: #### 2 357178, 2927279, 78544183 ####[address] [address] Neutro Auto 51.2 % Normal 36.0-75.0 [facility] Comment on above: Performed By: #### 2 995195, 5394953, 55164437 ####[address] [address] Platelet 125.0 E9/L Low 150.0-500.0 [facility] Comment on above: Performed By: #### 2 375992, 5956947, 27277693 ####[address] [address] Platelet mean volume (Bld) [Entitic vol] 10.4 fL Normal 6.4-10.8 [facility] Comment on above: Performed By: #### 2 297339, 7902320, 76877303 ####[address] [address] RBC 4.5 E12/L Normal 4.3-5.9 [facility] Comment on above: Performed By: #### 2 930576, 2980442, 39208989 ####[address] [address] WBC 5.7 E9/L Normal 4.0-11.0 [facility] Comment on above: Performed By: #### 2 919900, 3385381, 96990443 ####[address] [address] CHEMISTRYOrdered By: SYSTEM SYSTEM on 05-24-2023 Albumin [...] 05-24-2023 Albumin [Mass/Vol] 4.2 g/dL Normal 3.3-5.0 [facility] Comment on above: Performed By: #### 2 265492, 4935047, 28333332 ####[facility] [address] [place] [address] Albumin/Globulin [Mass ratio] 1.5 {ratio} Normal 1.1-2.2 [facility] Comment on above: Performed By: #### 2 226451, 9003332, 40919531 ####[place] [address] [place] [address] Alk Phos 66 Int._Unit/L Normal 21-98 [facility] Comment on above: Performed By: #### 2 098888, 7454693, 68492902 ####[address] [address] ALT 11 Int._Unit/L Normal 6-46 [facility] Comment on above: Performed By: #### 2 950001, 5381637, 31071309 ####[address] [address] Anion gap [Moles/Vol] 12 mmol/L Normal 6-16 [facility] Comment on above: Performed By: #### 2 248577, 7290073, 35098114 ####[address] [address] AST 16 Int._Unit/L Normal 5-43 [facility] Comment on above: Performed By: #### 2 937294, 4397763, 42714087 ####[place] [address] Bili Total 0.8 mg/dL Normal 0.0-1.1 [facility] Comment on above: Performed By: #### 2 274946, 5010108, 73066953 ####[address] [address] BUN/Creat Ratio 20 No Units Normal 10-20 [facility] Comment on above: Performed By: #### 2 751608, 2004411, 75080160 ####[address] [address] Calcium [Mass/Vol] 9.2 mg/dL Normal 8.9-11.1 [facility] Comment on above: Performed By: #### 2 625246, 5159470, 49654091 ####[address] [place] [address] Chloride [Moles/Vol] 106 mmol/L Normal 101-111 [facility] Comment on above: Performed By: #### 2 624051, 2034188, 53752054 ####[facility] [address] [place] [address] CO2 [Moles/Vol] 25 mmol/L Normal 21-31 [facility] Comment on above: Performed By: #### 2 066385, 9951769, 54441007 ####[facility] [address] [place] [address] Creatinine [Mass/Vol] 0.9 mg/dL Normal 0.5-1.3 [facility] Comment on above: Performed By: #### 2 086696, 2622879, 45094951 ####[address] [address] Globulin (S) [Mass/Vol] 2.8 g/dL Normal 1.4-4.0 [facility] Comment on above: Performed By: #### 2 073230, 1092551, 60384214 ####[address] [address] Glucose [Mass/Vol] 84 mg/dL Normal 55-199 [facility] Comment on above: Performed By: #### 2 706920, 2259280, 93846304 ####[address] [address] Potassium [Moles/Vol] 4.3 mmol/L Normal 3.5-5.3 [facility] Comment on above: Performed By: #### 2 891471, 0146329, 69290244 ####[facility] [address] [place] [address] Protein [Mass/Vol] 7.0 g/dL Normal 6.0-7.8 [facility] Comment on above: Performed By: #### 2 436295, 3347086, 20379578 ####[facility] [address] [place] [address] Sodium [Moles/Vol] 139 mmol/L Normal 135-145 [facility] Comment on above: Performed By: #### 2 903931, 2595144, 24113603 ####[facility] [address] [place] [address] Urea nitrogen [Mass/Vol] 18 mg/dL Normal 5-21 [facility] Comment on above: Performed By: #### 2 390639, 6518431, 04980685 ####[facility] [address] [place] [address] Consent for Treatmenton 04-30 Consent for Treatment [id number] Normal [facility] Gastroenterology Office/Clin ic Noteon 05-24-2023 Gastroenterology Office/Clinic [...] cm, GE junction at 34 cm 2. Glide colored mucosa suggestive of Siu's esophagus, C1M5, [...] POLYP. [facility] Bx Final diagnosis Esophagus, Biopsy -Sui's Esophagus,-4 dysplasia -Squamous esophageal mucosa with ulcerated [...] hematuria History of colon polyps Hx of snf use of blood thinners Nocturia Obesity 29-OCT-2013 [...] Sleep studies, (more content not included)... Normal [facility] Comment on above: Result Comment: Elec [...] Normal 80.0 - 100.[address] [place] Absolute 0.6 E9/L Normal 0.2 - 1.0 [...] - From: Sonya Ricks To: [facility] - Reminders/Recalls; Sent: 05/24/2023 13:48:57 EST Show up: 03/29/2026 13:48:00 EST Subject: Ambulatory Reminder Due Date/Time: 04/29/2026 13:48:00 EST Reminder/Recall Entered by Sonya Ricks on May 24, 2023 13:47:46 EST 05/09/2026 3 year colon recall From: Zina Ugalde MD To: Sonya Ricks; Sent: 05/24/2023 13:36:04 EST Subject: General Message Caller Name: ESTRADA PFEIFFER; Caller Number: H , M 3 years plz Normal [facility] eGFRon 05-24-2023 eGFR 88 mL/min/1.73 m2 Normal >=59 [facility] Comment on above: Order Comment: Order added by Discern Expert. Performed By: #### 2 235925, 9041005, 96817705 ####[facility] [address] [place] [address] Provider Letteron 05-20-2023 Provider Letter (Inserted Image. Linda ble to display) May 20, 2023 ESTRADA KENTRELL [address] [place] [address] : 1945 Dear Estrada , We have been trying to reach you with no success. It is important that you return our call regarding scheduling a follow up appointment from procedure dated 05-09-23 upon receiving this letter. Also, at the time of your call, please provide us with your current information. Thank you for your prompt attention to this matter. Sincerely, [facility] [phone] Normal [facility] Pathology Reporton Pathology Report [id number]#1.00TIFF Normal [facility] Postoperative Documentson Postoperative Documents [id number]#1.00TIFF Normal [facility] IntraOperative Documentson 0 05-13-2023 IntraOperative Documents [id number]#1.00TIFF Normal [facility] Progress Note-Physicianon Progress Note-Physician Patient: ESTRADA PFEIFFER [...] All Problems Urge incontinence / SNOMED CT 444041355 / Confirmed Post-void dribbling / SNOMED CT 150098629 / Confirmed Osteoarthritis / SNOMED CT 7619149199 / Confirmed Obstructive sleep apnea / SNOMED CT 303316039 / Confirmed uses CPAP Obesity 29-OCT-2013 12:37:00<$> / SNOMED CT [id number]-Q2U2 588I3P1B / Confirmed Nocturia / SNOMED CT 140039442 / Confirmed Frequent urination / SNOMED CT 305474156 / Confirmed History of colon polyps / SNOMED CT 5956340853 / Confirmed Personal history of prostate cancer / SNOMED CT 3886008207 / Confirmed Bloody stools / SNOMED CT 5600773329 / Confirmed Hx of snf use of blood thinners / SNOMED CT 706534519 / Confirmed Gross hematuria / SNOMED CT 709668685 / Confirmed CAD (coronary artery disease) / SNOMED CT 33768516 / Confirmed BMI 34.0-34.9,adult / SNOMED CT 150088985 / Confirmed BPH with urinary obstruction / SNOMED CT 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 Resolved due to patient discharge. Resolved: Prostate cancer / ICD-9-CM 185 Resolved: HTN (hypertension) / ICD-9-CM 401.9 Resolved: Coronary artery disease / ICD-9-CM 414.00 Histories Procedure history: Cystourethroscopy with dilation of urethral stricture (911564309) on 10/16/2022 at 77 Years. Endovenous laser ablation of varicose vein (9148519535) on 02/15/2022 at 76 Years. Comments: 02/15/2022 11:20 LARRY Alicia RN, Gareth Quiñonez bilateral Total knee replacement (5369110196) on 06/27/2021 at 76 Years. Cysto (56230129) on 06/11/2017 at 72 Years. Comments: 11/18/2018 9:29 Mery Burk 12/02/07, 05/1013, 05/1317 left total knee arthroplasty on 04/13/2016 at 70 Years. left shoulder arthroscopy with extensive glenohumeral debridement, subacromial decompression, partial distal clavicectomy, mini-open rotator cuff repair on 02/23/2014 at 68 Years. Brachytherapy (817511790) on 07/12/2011 at 66 Years. Evolve Laser of Prostate (063476456) on 08/12/2007 at 62 Years. Urodynamics (724507253) on 07/15/2007 at 62 Years. TRUS w/Bx (8382112926) on 05/24/2000 at 55 Years. Comments: 11/18/2018 9:32 Mery Burk 01/23/11 Stented coronary artery ([id number]-[id number]). Cancer of prostate (3270782621). Comments: 02/23/2014 12:37 LARRY Blake RN, [place] radiation seed implant Sleep studies (210664244). Hernia ([id number]). Social History Social & Psychosocial Habits Alcohol [...] adequate air exchange. Cardiovascular: Regular rhythm. Plan [place] [employer]esthesi[employer] (ASA) physical status classification: Class III. Anesthetic Preoperative Plan: Anesthesia General. [facility] Comment on above: Result Comment: Elec tronically [...] meets criteria ( To home ). Normal [facility] Comment on above: Result Comment: Elec tronically Signed By: Tico Huston Jr, DO\.br\Date and Time Signed: 05/13/23 11:25 EST Consenton 2023 Consent [id number] [facility] Discharge Instructionson Discharge Instructions [id number]#1.00TIFF [facility] Main OR Intraoperative Recor don 2023 Main OR Intraoperative Record IntraOp Document Type FT Summary Primary Physician: Zina Ugalde MD Finalized Date/Time: 05/10/23 09:38:29 Pt. Name: ESTRADA PFEIFFER/Sex: 1945 Male Med Rec #: [id number] Physician: Zina Ugalde MD Financial #: [id number] Pt. Type: O Room/Bed: / Admit/Disch: 05/09/23 09:12:17 - 05/09/23 23:59:59 Institution: Case Times FT Entry 1 Patient Times In Room 05/09/23 09:40:00 Out Room 05/09/23 10:30:00 Procedure Times Start 05/09/23 09:45:00 Stop 05/09/23 10:27:00 Anesthesia Times Start 05/09/23 09:40:00 Stop 05/09/23 10:30:00 Time at [place] 05/09/23 10:05:00 Last Modified By: Hernan RN, Jessica Chávez 05/09/23 10:30:57 General Comments: 0954 EGD completed. /,RN 0959 Colonoscopy started. /,RN 05/10/23 Chart opened to review and send charges [facility]FA Case Attendance FT Entry 1 Entry 2 Entry 3 Case Attendee Andressa PADILLA, Nikhil Becerra RN, Stephani Marroquin Role Performed LIFE SKILLS INSTRUCTOR Pie Topper - Primary Scrub - Primary Time In 05/09/23 09:40:00 05/09/23 09:40:00 05/09/23 09:40:00 Time Out 05/09/23 10:30:00 05/09/23 10:30:00 05/09/23 10:30:00 Procedure EGD AND COLONOSCOPY(.) EGD AND COLONOSCOPY(.) EGD AND COLONOSCOPY(.) Comments Dr. Huston supervising case Last Modified By: Hernan RN, Jessica Becerra RN, Jessica Becerra RN, Jessica F 05/09/23 10:30:59 F 05/09/23 10:30:59 F 05/09/23 [...] (If Applicable) PreOp Antibiotic No Time Out Jessica Becerra RN, Nikhil Crisostomo CRNA, Stephnai Fitzgerald, Alex SALES DEVELOPMENT SPECIALIST, Nimisha Ivory, Tram DOUGLASS, Zina Gallardo Time [...] and tissue Entry 1 Skin Integrity Intact, Hilbert, Warm, and Skin Abnormality No Dry Outcomes Met? Yes Last Modified By (more content not included)... Normal [facility] Consent for Treatmenton 04-29 Consent for Treatment [id number] Normal [facility] Discharge Instructionson Discharge Instructions ESTRADA PFEIFFER :1945 [...] For Persistent or heavy bleeding Pharmacy Information [facility] Discharge Instructions Discharge Instructions Previously Scheduled Follow-Up Appointments 2023 8:30 AM EST With: ANJELICA NATION PA-C Where: [facility] Comment on above: Result Comment: Elec tronically Signed By: Ortiz TAPIA, Minda Hernandez\.br\Date and Time Signed: 05/09/23 10:37 EST Endoscopic [...] hours. Education and Follow-up: Counseled: Patient, Family. [facility] Comment on above: Result Comment: Elec tronically [...] cm, GE junction at 34 cm 2. Glide colored mucosa suggestive of Siu's esophagus, C1M5, [...] cm, GE junction at 34 cm 2. Glide colored mucosa suggestive of Siu's esophagus, C1M5, [...] 30 minutes before breakfast and dinner Normal [facility] Comment on above: Result Comment: Elec tronically Signed By: Zina Ugalde MD\.br\Date and Time Signed: 05/09/23 09:58 EST Other Comment: Aaliyah wilson Attachment - attachment storage system not supported [id number] [facility] Attachment - attachment storage system not supported [id number] Can be viewed in [facility] Attachment - attachment storage system not supported [id number] Can be viewed in source systemMissing Attachment - attachment storage system not supported [id number] Can be viewed in source systemMissing Attachment - attachment storage system not supported [id number] Can be viewed in source systemMissing Attachment - attachment storage system not supported [id number] Can be viewed in source systemMissing Attachment - attachment storage system not supported [id number] Can be viewed in source systemMissing Attachment - attachment storage system not supported [id number] Can be viewed in source systemMissing Attachment - attachment storage system not supported [id number] Can be viewed in [facility] Attachment - attachment storage system not supported [id number] Can be viewed in source systemMissing Attachment - attachment storage system not supported [id number] Can be viewed in source system Inpatient Patient Summaryon 05-09-2023 Inpatient Patient Summary [address] [address] [facility] Clinical Discharge Instructions PERSON INFORMATION Name: ESTRADA PFEIFFER PHYSICIANS Admitting Physician: Zina Ugalde MD Attending Physician: Zina Ugalde MD PCP: Encinas III DO, Rinku R Discharge Diagnosis: Colon polyps; Dysphagia Comment: PATIENT EDUCATION INFORMATION Instructions: Medication Leaflets: Follow up: Type Location Start Finish State URO Office Visit [facility] [place] 03/12/2024 8:30 AM 03/12/2024 8:45 AM Confirmed [...] Tablets By Mouth every day. Comment: Normal [facility] Main OR PACU I Recordon 04-29 Main OR PACU I Record PACU Phase I Document Type FT Summary Primary Physician: Zina Ugalde MD Finalized Date/Time: 05/09/23 11:23:36 Pt. Name: ESTRADA PFEIFFER/Sex: 1945 Male Med Rec #: [id number] Physician: Zina Ugalde MD Financial #: [id number] Pt. Type: O Room/Bed: / Admit/Disch: 05/09/23 [...] Signed By: Minda Alcantar RN 05/09/23 11:23 Normal [facility] Main OR Preoperative Recordo n 05-09-2023 Main OR Preoperative Record Holding Area Document Type FT Summary Primary Physician: Zina Ugalde MD Finalized Date/Time: 05/09/23 09:38:30 Pt. Name: ESTRADA PFEIFFER/Sex: 1945 Male Med Rec #: [id number] Physician: Zina Ugalde MD Financial #: [id number] Pt. Type: O Room/Bed: / Admit/Disch: 05/09/23 [...] By: Ella Jones I 05/09/23 09:38 Normal [facility] Monitor Recordon 05-09-2023 Monitor Record [id number]#[id number] Normal [facility] Monitor Record [id number]#[id number] Normal [facility] Outpatient Surgery Discharge Instructionon 05-09-2023 Outpatient Surgery Discharge Instruction [address] [address] Patient Discharge Instructions PERSON INFORMATION Name: ESTRADA [...] Date Follow up: Type Location Start Finish [facility] URO Office Visit [facility] EU Yanick 03/12/2024 8:30 AM 03/12/2024 8:45 AM Confirmed Pharmacy Information: Gerry Caraballo You may receive a survey from Gerhard Garcia asking you to rate your care experience. Your feedback is important and will help us understand what we do well and how we can improve the quality of care we provide to you, your loved ones and our community. It?s an honor to serve you. Thank you for choosing [facility] HERE ARE THE MEDICATION CHANGES THAT OCCURRED [...] day. PATIENT EDUCATION INFORMATION Instructions: Medication Leaflets: [facility] Insurance Correspondenceon 0 05-06-2023 Insurance Correspondence [id number]#[id number] [facility] Ambulatory Visit Summaryon 1 05-18-2022 Ambulatory Visit [...] CASTRO, ANJELICA Meza Where: [facility] [place] [facility] Consent for Procedure/Surger yon 03-18-2023 Consent for Procedure/Surgery [id number]#[id number] [facility] Gastroenterology Office/Clin ic Noteon 03-18-2023 Gastroenterology Office/Clinic [...] hematuria History of colon polyps 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 [facility] Comment on above: Result Comment: Elec tronically Signed By: Tram DOUGLASS, Zina Gallardo\.br\Date and Time Signed: 03/18/23 11:03 EST Screenson 03-07-2023 Screens [id number]#[id number] [facility] Patient Educationon 03-06-20 Patient Education Oncology Prostate [...] Where to find more information ? [employer] [employer]: www.cancer.org ? [place] [employer]: www.auanet.org Contact a health care [...] on cytol. CT AP wo con 10/11/22 [facility] - no renal or ureteral stones, no [...] Contact Information MATTHEW CASTRO, ANJELICA Meza, URL [address] 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 Normal [facility] Comment on above: Result Comment: Elec tronically Signed By: ANJELICA NATION PA-C\.br\Date and Time Signed: 03/06/23 15:46 EST\.br\Electronically Co-Signed By: Abigail Patricio\.br\Date and Time Co-Signed: 03/06/23 15:43 EST CHEMISTRYOrdered By: SYSTEM SYSTEM on 03-05-2023 Prostate specific Ag [Mass/Vol] ng/mL Normal 0.1 - 3.5 ng/mL [facility]isol Comment on above: Interpretive Data: T he concentration of PSA determined by different manufacturers can vary due to differences in assay methods and reagent specificity. Values obtained from different assay methods cannot be used interchangeably. The methodology used for this result was chemiluminescence using [employer] Hybritech PSA reagent. Consent for Treatmenton Consent for Treatment [id number]#1.00TIFF Normal [facility] PSA Totalon 03-05-2023 Prostate specific Ag [Mass/Vol] ng/mL Normal 0.1-3.5 [facility] Comment on above: Result Comment: The concentration of PSA determined by different manufacturers can vary due to differences in assay methods and reagent specificity. Values obtained from different assay methods cannot be used interchangeably. The methodology used for this result was chemiluminescence using [employer] Access Hybritech PSA reagent. Performed By: #### 1 [id number] #### [facility] [address] [place] [address] UroVysion Fish and Urine Cyt o ([facility])on 02-12-2023 UVFISH & UC Diagnosis Info Invalid Interpretation Code [facility] Comment on above: Result Comment: A:Ur [...] correlated with cytology and cystoscopy results.* CPT 04745, 07652. Microscopic Notes - Microscopic Notes - Abnormal cells 9p21 deletions: Abnormal cells aneploid events: Total cells analyzed: Hematuria: Gross Description Site ID:A color Yellow fixative Alcohol Received 100 mls of clear yellow fluid with the patient's name and, Urine on the vial. Electronically signed by : on: 02/12/2023 11:43:23 Performed By: #### 1 [id number] #### [facility] [address] [place] [address] UroVysion Fish and Urine Cyt o ([facility])on 02-06-2023 UVUC Method of Extraction Voided Normal [facility] Comment on above: Performed By: #### 1 [id number] #### [facility] [address] [place] [address] [facility] Number of Jars 1 Invalid Interpretation Code [facility] Comment on above: Performed By: #### 1 [id number] #### [facility] [address] [place] [address] [facility] Specimen Urine Normal [facility] Comment on above: Performed By: #### 1 [id number] #### [facility] [address] [place] [address] [facility] Type of Service Technical Only [facility] Comment on above: Performed By: #### 1 [id number] #### [facility] [address] [place] [address] Physician Orderon 01-30-2023 Physician Order [id number]#1.00CD:127 Normal [facility] Office Visit (Cardiology)on 12-17-2022 Follow-up visit [...] Weight Tips; Status:Complete - Retrospective Authorization; Done: [id number] Some eating tips that can help you lose weight.; Status:Complete - Retrospective Authorization; Done: [id number] SocHx: Never a smoker Tobacco Use Screening; Status:Complete; Done: [id number] Patient Instructions Please bring all medicines, vitamins, [...] he had venous stripping last year at [facility]. Sleep apnea on CPAP machine with compliance. Summer Deshpande MD, [facility] Surgical History Problems History of Cardiac catheterization [...] 7:37:38 AM NonMedication Seafood Shortness of breath; [place]; Recorded By: Marissa Guevara; 12/17/2022 1:49:59 PM [...] Recorded: 17Dec2022 01:33PM Heart Rate54, R Radial Fnfktayn294, RUE, Sitting Gcbsmndym49, RUE, Sitting Height5 ft 11 in Youxxm928 lb 12.8 oz BMI Ffxnerhobr65.84 kg/m2 BSA Calculated2.32 Tobacco Useb) No F (more content not included)... Normal [facility] Tobacco Screening.on 023 Fall risk assessment a) No falls within the last year [facility] [employer] [address] DO Work Phone: Tobacco use status [facility] b) No [facility] [employer] [address] DO Work Phone: Reminderson 11-26-2022 Reminders [...] around January. Reminder placed in system. Normal [facility] Patient Letter FTon 2022 Patient Letter [facility] (Inserted Image. Linda ble to display) November 21, 2022 ESTRADA PFEIFFER [address] [place] [address] : 1945 Dear Estrada, This is a reminder that you are due for an appointment with [facility]. Please contact our office at [phone] to schedule an appointment at your earliest convenience. Thank you, [facility] Normal [facility] UroVysion Fish and Urine Cyt o ([facility])on 10-19-2022 UVFISH & UC Diagnosis Info Invalid Interpretation Code [facility] Comment on above: Result Comment: A:Ur [...] correlated with cytology and cystoscopy results.* CPT 48308, 64813. Microscopic Notes - Microscopic Notes - Abnormal cells 9p21 deletions: Abnormal cells aneploid events: 16 Total cells analyzed: 157 Hematuria: Gross Description Site ID:A color Yellow fixative Alcohol Received 90 mls of clear yellow fluid with the patient's name and, Urine on the vial. Electronically signed by : on: 10/19/2022 11:11:56 Performed By: #### 1 [id number] #### [facility] [address] [place] [address] Consent for Procedure/Surger yon 10-16-2022 Consent for Procedure/Surgery [id number]#1.00CD:127 Normal [facility] Consent for Treatmenton 09-28 Consent for Treatment [id number]#1.00CD:127 Normal [facility] IntraOperative Documentson 0 10-16-2022 IntraOperative Documents [id number]#[id number]:127 Normal [facility] Main OR Intraoperative Recor don 10-16-2022 Main OR Intraoperative Record IntraOp Document Type FTURO Summary Primary Physician: Todd CRUZ MD Finalized Date/Time: 10/16/22 09:24:11 Pt. Name: ESTRADA PFEIFFER Khang Trotter/Sex: 1945 Male Med Rec #: [id number] Physician: Todd CRUZ MD Financial #: [id number] Pt. Type: O Room/Bed: / Admit/Disch: 10/16/22 08:36:10 - Institution: Case Times FTURO Entry 1 Patient Times In Room 10/16/22 09:11:00 Out Room 10/16/22 09:23:00 Procedure Times Start 10/16/22 09:14:00 Stop 10/16/22 09:20:00 Anesthesia Times Last Modified By: Georgia Almonte RN 10/16/22 09:23:53 Case Attendance FTURO Entry 1 Entry 2 Entry 3 Case Attendee Todd CRUZ MD SALES DEVELOPMENT SPECIALIST, Jenni Almonte RN, Georgia Marroquin Role Performed Surgeon - Primary Scrub - Primary Pie Topper - Primary Time In 10/16/22 09:11:00 10/16/22 09:11:00 10/16/22 09:11:00 Time Out 10/16/22 09:23:00 10/16/22 09:23:00 10/16/22 09:23:00 Procedure CYSTOSCOPY LOCAL(.) CYSTOSCOPY LOCAL(.) CYSTOSCOPY LOCAL(.) Comments Last Modified By: Suzy RN, Georgia Almonte RN, Georgia Damon RN 10/16/22 [...] Georgia Almonte RN Document Signatures Signed By: Georiga Almonte RN 10/16/22 09:24 Normal [facility] Main OR Preoperative Recordo n 10-16-2022 Main OR Preoperative Record Holding Area Document Type FTURO Summary Primary Physician: Todd CRUZ MD Finalized Date/Time: 10/16/22 09:17:01 Pt. Name: KENTRELLESTRADA/Sex: 1945 Male Med Rec #: [id number] Physician: Todd CRUZ MD Financial #: [id number] Pt. Type: O Room/Bed: / Admit/Disch: 10/16/22 [...] Comment: left hip area Skin Integrity Intact, Hilbert, Warm, & Dry Vitals - EU Blood Pressure 165/65 Pulse 63 bpm Respirations 20 br/min SPO2 97 % RN Reviewed Yes Last Modified By: Georgia Almonte RN 10/16/22 09:17:00 General Comments: Temp 36.8 Finalized By: Georgia Almonte RN Document Signatures Signed By: June HENRY Paty 10/16/22 08:49 Georgia Almonte RN 10/16/22 09:17 Normal [facility] Operative Reporton Operative Report Patient: ELVIS PFEIFFER [...] to his allergy to IV contrast. Normal [facility] Comment on above: Result Comment: Elec tronically Signed By: Todd CRUZ MD\.br\Date and Time Signed: 10/16/22 09:28 EDT Outpatient Surgery Discharge Instructionon 10-16-2022 Outpatient Surgery Discharge Instruction [id number]#[id number]:127 Normal [facility] UroVysion Fish and Urine Cyt o ([facility])on 10-16-2022 [facility]UC Method of Extraction Cystoscopy Normal [facility] Comment on above: Performed By: #### 1 [id number] #### [facility] [address] [place] [address] [facility] Number of Jars 1 Invalid Interpretation Code [facility] Comment on above: Performed By: #### 1 [id number] #### [facility] [address] [place] [address] [facility] Specimen Cystoscopy Normal [facility] Comment on above: Performed By: #### 1 [id number] #### [facility] [address] [place] [address] [facility] Type of Service Technical Only Normal [facility] Comment on above: Performed By: #### 1 [id number] #### [facility] [address] [place] [address] CT Abdomen/Pelvis w/o Contra ston 10-13-2022 CT [...] Oral contrast amount in ml's: 0 Normal [facility] Consent for Treatmenton 09-27 Consent for Treatment [id number]#[id number]:127 Normal [facility] Pre-Certification Formon Pre-Certification Form [id number]#[id number]:127 Normal [facility] C Urineon 10-05-2022 Bacteria identified Cx [...] Locations R1: This test was performed at: [facility], [address] [place] [address], [address] , [place], [facility] Comment on above: Performed By: #### 2 [id number] ####[facility] [address] [place] [address] Patient Educationon 10-04-19 Patient Education Urology Hematuria, [...] these instructions at home: Medicines ? Take dkme-clc-ovwrehv and prescription medicines only as told by [...] the blood stops without treatment. ? Take zzgz-agp-wbmvabj and prescription medicines only as told by your health care provider. ? Drink enough fluid to keep your urine pale yellow. This information is not intended to replace advice given to you by your health care provider. Make sure you discuss any questions you have with your health care provider. Document Revised: 12/14/2020 Document Reviewed: 12/14/2020 [employer] Patient Education ? 2022 [employer]. [facility] Pre-Certification Formon Pre-Certification Form [id number]#[id number]:127 [facility] Pre-Certification Form [id number]#[id number]:127 Normal [facility] Provider Letteron 10-03-2022 Provider Letter (Inserted Image. Linda ble to display) Rinku Encinas III [address] [place] [id number] Re: ESTRADA PFEIFFER Date of : [address] Huang BUCHANAN DO, Rinku PFEIFFERESTRADA was evaluated at [facility] 10/03/2022 As this patient has been [...] Thanks! Provider Signature: Anjelica Nation PA-C Physician [employer] Press Operator [facility] [address] [place] [address] Normal [facility] Comment on above: Other Comment: ENTER ED [...] if +. Abx should be sent to [facility]. -Schedule CT AP wo (iodine allergy) [...] Contact Information MATTHEW CASTRO, ANJELICA Meza, URL [address] [place] [address] Additional Instructions: schedule cysto, CT scan Patient Education Hematuria, Adult Documentation recorded by the scribcarolyn Gallagher accurately reflects the services(s) I performed and decisions made by me. Authenticated by Anjelica Nation PA-C on 10/03/2022 14:44:59. I, Nilda Gallagher, personally scribed for NAVARRO Neal on 10/03/2022 14:28:02. . 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 Normal [facility] Comment on above: Result Comment: Elec tronically Signed By: ANJELICA NATION PA-C\.br\Date and Time Signed: 10/03/22 14:45 EDT\.br\Electronically Co-Signed By: Nilda Gallagher\.br\Date and Time Co-Signed: 10/03/22 14:28 EDT Coding Summary.on 08-31-2022 Coding Summary. CD:[id number] Ww+PGhlY WQ+GT4ZRSVeA39lhSFaiV7yT0OEM MhGHxtaBDETSWnFXeCmwiJjBC2sx XNjZXJu IC8+QU2bVJSnHprznAJnb4C3vZP3 H68gwb6nOAbibIJ3LGSyHhTcpwix e5yppRu0CAizOlprElBv WAOqaL65UUB3kO78Mp19jSOmvMXe w3qqhYx6NvWkYLVxUBX0qPzcIKez q5TbJSFzS92yaQOvr1X0 OSStqPsjtZRpAkFhaFH1oD1qBQer ueiua2mbankqAvy9ia67yCPmv6A6 oLZ5D1FwibT1MCJadMNo QfiuaSTDnP5doalkr8awwfzyZlOn GHXyUNz7NTs0SURneYrzEfEdNN81 DZH0XRQqiwEzY1HxJJCl oUqcLvX0n1K3Ba0RO1IMUiobA1SX TUFSWTwvdGQ+LA02ro79W0EoRlhn Lcv3JACdHLJ2yXV0jV9a RGGcVPgtq0F8yST9I2GdhfDgve4n l3csZMHpJZrtZ53zhSYzk0L2LJQu yGB9VUHdgTwdGuHnvM32 Oyc+OLOcdKlkj6WoJnxwp3gnh0gy qHf8VzxtJJUqayQabKuzGRX9q8Wy Tw8tWFCqiRV2bTD1vR1c GbPfNtH9FJzfW842BzNxiQOgHanh M34hE0JqbAV+RWDkDjk2LIUudRfg KQ6nU0QlERTimciihHRj iJujTC8uLUFsmbyyFLDdeP1aOYBi W2l6IpKmXrN4VBrbN2BpGZQzfnxe Qo91sS2bHgFtGzH2RScm Y0ZhogW6OOSukEHyEXsyVIV2S14i l1P4UPXdHDRkFAT6rGL8cY9kzCnh bjogbGVmdDsgdmVydGlj VTxkHGfrI936OETykCmvDdFmGSjr ZyBEYXRlOiAgMDUvMDUvMjAyMzwv dGQ+VIQjILM4oEkdCHOb kCAkWTfdPo7rcOgvnLuyZP6vSINi wkstRXWenF9sWTZfaEXaiIcpDM2n YYXvkhxik523EuKfDYZ1 XBMteNGeL6VbeT1lPlOhYFElJPNa I6UzuYReJFdaN772CTlfKwB8UNZp ftAsP8NqWHWbnYnnXoL4 w3H0Hu3Wm8ZrdartX1RsuLXyYwQu DewiBVq3Y8DwBxpjeJX+MO44IPAa MS79SWb4XSZ7qTzcOChh XEKqF7TgwE8kYmAdVXRdPHVjTcy+ PHRhYmxlIHdpZHRoPScxMDAlJyBz sGhdOF6cIz3vCDGvSWEs iLcghTMoNxXmk7etKOEvZKhhYP7h fUvbW3PcyPD1DXIye4m6Un41K82l H0ByoVF+WXBdqEB6oDD3 hZ9bSvDdSoN6XXbtX553EcHuzOVf Msofa8lbs5pkiRu5SxT4XSXkagOd cFkpGZO4i8CiKl69V51a MPcrHEFjAKHzUONaVIDtkSyupa7q zA8jIa9+ZYTxtQR5jCE7nQ7cCmMo TfV0QFypZ149GeRnvBKu Cnxnq7mgn4mirNv7ClBiDAUnkmBb qNnuTWS1j5IjAa00I2BokQlzi5Cf Cyi2re09eLUlz0F7yIB9 U0BnKVYvblxlxOAbbLkjYF9yMEVg uirwHWAjwD0tXJMwZ6j6BbJsFuG1 VXnqB6OhncR3GJWyhLIq XIBpfJNYeT9zvvzql0sethakYsUz QJNnUQi1KJx6ADEwxGkvFqIwCBK1 SjE1UQA3wHBotO2pbDdy tgcjwB3dVxg+AEV9lTCmnTBMCP1g OjwvdGQ+WEYsDZN7iBexQWbyPKOa wE9hPZNcL9j8DmAcYtQ4 YLakR9CxcxM0JUJhgJUePDIidBZR bJ2vjvhgi9aowlxkFeFhVVEsIHz5 HNu6LBFuvXuuIgNkHTG9 SuF3BUW7iIFcoG5pkJeayspdkW2s Oyc+XpnsgAmqTTI3NWb1E5WtTkj8 CYQbhHxhZP3usWJuOFec Rd4iuNczsEwkHI8uQSJnahwdj755 FnMbl6pdFLPhuIMsJNibBUZ6G30o j5V5TMQsBLDiJGA6vRF1 iI3mwXdvfkcbnYMnjChckdCmxKgj JOthBVntS254VLCgnNfpMiAqKOa2 R5MnLie1TVPafSamIW3h fTMeIBroSx3gzMycvItgYR8gYKSu prxyq504XsDuc3ynQMMcfJTtPSdf RHM0P36bq3B7LRZeOASn NHO3iAY7uP0hrLlvlbohaDDxrKxk ieNxsAihEJixUPqaX639PLHvhZcl UhQhvGb3U7InOuf6JNCw mTuaNZ3irLRgPMxhKk6dxHufzGux ZL9qDHJspqldc072ZcKxq8thLGLo eRHvXEdcAHP1L60kd2C4 SJThTLFmGBF1yAW9vR5tlGutkiym fLMahRujkoFtqRsnVKpvMRhpZ688 IHRvcDsnPlBhdGllbnQg YLblBSv2S5WfKuelqBN+MS09XCIi NJ88nLVmlDVjr6hzkKj0MuHvOFNw ZME7iRvnMSnsi3ReNEIm F77idCZzf7K4JFEjiIythGXrYeJx wSO6cO2pWBrznfsru7urgaizGutc q8bdtq74zN22A97fZDtt PMLtJXCpIVZxQYTttEddoq1eqD3m Ii8+RVYngZF9sJS7oM1iPZWxMwX3 GDfbC815ToUjbAScPwhl d1dcl1wztJm7VxS8KBMxbaPliLuw GSL2t3FhEe83Y46tRUxuCRFzCUVb GCLtVTCzgJtwfh3shD8q Ii8+UMUhqHH3uKW4qE0wYkVxJuD2 WTrnY737UvZcsPPsBpphO45jO4Vr dXA+GNNeBkd8TEEdmEak BA2ynUVvNJbsOh0kFXZ5FyPwTfWn WEuqR8AcRJBtiuuoqpmnjNF2NBFe QPEafO80Jc5apUrsSYUt mWCTzW2kqoxed5clcbroLqWnAKLu XCj9OJm4CFHzxHszFoGaGHO6YzW8 TMR2oXOrrG0ivJanruvj zB6eH5RrRBWdlofoZb67uM2nNmQg AiX0BWoxQmp+U9TBTZfuZBCVW02J TzINTF19BR75aTRmm6Y8 wHB9U5PqDSYugsfmftxyhCF2HTNc HNCqwK85yJWkUBveUv2di7C4u316 YYGjTITmoA17Yc6zmWsg AVXbhDXArC9uwkpgx9kjcnycJwXr PASjBCh6QBv1LKOtyQtnZgVxCJU8 LjW4MXZ7dCRkhT8jhIrr ovykaT9iNmm+IFJuCOOsZCy9Oobf dGQ+LATiPLV0nJymBWbgVZHsvP3g ISMeM1q5HzDzSkM4EJio J3AvQCNqjsbdJa19hA6jPxFgYzF2 HPomO8DewfO6RYXzsQWqWGbwCPK2 D18ew8G8AHZnZCQnHVE4 rHY4pN3hpKvntnmljEJyhMkfhqNw xVjrOAnuFLupA599HCZvdLfgDax5 QZziCDPeYY92IF38hZSr u0N4vCC7A5StTRDsgdqtoigybCM6 AAHtPFKpwF24yMHwYWsvTx6jz8W1 x604LJUrGACxbZ63Vn4h jDieACDrzUWXuQ6jwsfkg6vyeggn NxHdIPByOXz1BBc7YHDozLfaDxEw VGK8WyN3ENR0uEMmaE2y qGwtzayunJ4sHij+TWFsZTwvdGQ+ RKIiNSF9oGbnAVliDJQwtU6cXTBc P0u6HjNzJfW9RCcrQ4Xq YVVgncypLs81lH8qBnHeFfA2TEor N8ShuqK0JOJsbKXmJFxjDHH1M51n l9X1ULPmGDSbKCG3uKX4 lS3iqHppaxdfbVMmtVitahRduAlb TXpsABroO597DWMmjZfxNhHoKVNo JX9eeBoohFE+KW54kp34 J1HxBojbMyd9LXJeUFG5bZO4fF2t KFPpVOelm0X2sEO0V7YhukNzgl4n h9kaDYBgKInlY55fqTDk n7Z9LVBwcYP9IXJpgGicOaVpiE83 Oyc+JSVybRrhc7DuVueoq8byd7gh nAr2ZeBvGUFqhtWeqCmw PAL0f3EnWc44L63aGIasLUJsSBKo ETCeCCNuhRqmjn6qkV5mZb3+PGNv oHB4uOH9vW0wLlEhAfT4 WAbkG422FmNazWGsEupgp7gro0ev uHr9XoXdONYfejEfcPopRIO5x7Zr Zv70Z7PdqIuno2CxLgi5 fe38rSMho6C4jLH6J7YwMFMtlcrm tZIytCgiFG4pPPTibqgvWUQppS9z ORHxT1t2BwBnZxU4JOsh J9XaywI1ATImdZIiWBClpCRTpA5k cmful7onbrnhRtMxFXNkTIw9EVc1 SJEdlImoXiUtYDD9YqE1 VTI0nQZcbF0vlFboiymfuM4oKyj+ ZAl0n5airIKgOT7qqNZ1OJ26IO53 wURvs3M8hTW2E3IvSWWw hxtlcsebsFF1KDOyUIBfuT34Zo0h zHufVc4zZINaZCM9EQUtrTJaP3Pb qL5fIuAjGZNyMYNhA0Hq oTOvIJweC579VCwbGgQ1IPTdawUw M1JtZVByuMzoDvU5x0G1Kn6UKY56 YH86TT79fKCli6S7gWE8 B3NiRETkfeabkbvmoKX0WVDoETTc pD79Ui9vuXstPx7yJMAhQFV7VHEs hCVbG0TxoK5vNsZkJUNo UPXtY4NazAOhIKfsH818YGupWmY6 BVLkrfQwS4NmRZTmaJbyPoC3n8R8 Vx3RQi74PY33CL39oOSc k7Q5sFW8U7JaXACxpwkceeourQA0 TSDsTBLzzS82Yk0suYpuFb1fHZWj ZXT8SELquZFkC7GtbI5x YxRyDRLjXVAnY4FocDSlQJgmM741 ZTnjWcA6REKekkSoF1MnDIPfpAzb FdC4b1N9Op8LMMiaksd9 A9TjZtppfIQ+LB48OHHoSH76pQOa xVTdg6uovHs6WeBqARAwDMT1fUeh ZSfkp7AsIMBnQ25ecARo a6I1IOHx (more content not included)... [facility] Coding Summary. CD:[id number] Ww+PGhlY WQ+LE7TXSItK08dfNQjfD2LI0aTP V3PDVJKRPFDTR9YAK9dzWM9YLsrM 2VybiAv QgyukQQoVG58NVx8JJY4yTapRHsx wG5rmEIkN7c4HlVrQC31fQ97LPzq YOQvLwQ3NuOsvqwjwMTg T5giOaZezOFrJek+PHRhYmxlIHdp AXPcIMozMCImBmMvhCceHR8rKe7f ZGVyLWNvbGxhcHNlOiBj i0czPVSqJGygGZ5fxKwbB3WdaTC9 HVHil0o8Ul62tUI+GJFbHED2ePme DCtad373CySjp3clMLS6 aKMvQPriMSK6N55kh2B8VXBaEDYm BYB2yOD6cP0brXbrcohnB5YfhOTs DoD0YLC4lGFqkT6lpVnt gxslsP4pRiy+M66SZS7FZTXJPP4E Kmw4W2FqBxwfnWB+IQ30XBRsJS42 pEEtcQSex8mvyFn9RjLu UFDcLBW2zGhrGNdcc0YpWYFxM82u gGEfa4H3RAGypLiztDBhOwEynDL7 iR1pSJgodnnyg6hpghld Cpphu0nurc80aH33I32qNSewTXNe QKF2VDExOAWepCueyx2aqM2sOk7+ YSasv8qph6dapGx6SyNa JRTqdpGkzNulPTV9q2SvLk35L6Gd qOklw1FcVxi3ap54xZIrk9O1fMO7 RXcmDNSwwQ6vQProTrW6 IYBdEsDwdY89jIUjGTgsTr2djTgn eOxqPU8pQXXpiusnXQZqiV0jJZUu aHBvpMxtBX0vSZHapueb c697RmJbKJE1JMDuaUBcM5UwtA4z XhHkBVZyUQCqP2ZzsPKgKNkzX182 BDlqDeJ3YSBejgXqW3Yc HZCagUdmAqD5u8O8Sa7Bw4Acmgoq OIM7HKrwYQRjYkKdZmOvGeS6H6On Sus9STYyhUnsPW5kA5Wz QUIfhuvbgbkdmGO2ESRlGNJeyH40 eARpOYwzPt5nt3N8s407SQCsQDSm fO87Sw4arIryVLKluSHU tN0pjeovt8selxabXjUeJOWjGYq1 RTn1JNWyeKlpDfAxTHI0ZqT4SXQ1 lHQhzZ0apInjfuxsxN3t Oyc+S11fmA5qPZG3LYZ6grdcEPJk vhDzIO64AN96U0UxIqtojFWqfVT+ LICqnpJlgApuCY6xMyUd n6ncw4KcABiwT2HuEPBgWIuvFno1 AEMoQDM3xLV3aU7vYBUkWEylk3Q9 pDW1D0KxgwBkqd9gx4co ZUMqQDpkI63ogLXwh1M0ZFRytCZ1 KTVfgRppAkTwyL79Ntp+PGNvbGdy b5GtDpjrv7bia0djsMs0 MkXcEUHdsaBooFnbRUW7z3WjKc77 P54dPNqfMGNpJBVkZCQvMRJyiVpw ew0xyI6yTh4+PGNvbCB3 wGQ3hM2uCCUwQxM0TAfyJ128PlCd nXXhEgfui8sok7kjpBv3UfHmRCFr vxCoyQiiZCM9z5VtRh92 C21vDWszEIVfOAXpZQSuVPSupWxj fn6dxU9hEf4+BH5cl8bnfg66hP78 dHI+LQZoVOB4mSkjCNxz WVDgoV9fUGkkDtS8CVMmKuNdyR89 oATwHZpgPp9zyEofyXuvOA0wZWBq juboe957GpTgy2znRJNm mWLrPIptIRN3U28ye6G3GJUhHDKg GHJ3xVG7lK9bfDrjwiueyVPeqFoj ovZymOjoMUttFYgaS534 IHRvcDsnPlBhdGllbnQgTmFtZTo8 V8IbXyu1KECqdTpvFL0vqHPoMAhy Rn1ntZdmeToqPP5kFXOx laflh955WgHxy5xaDTQfoMGpZOdl NPC5Z74np2W6HRVxGFQnGOG1sTV6 mC8qdEczfolrcFVwlTog csZztJevZCrkDQxbO471QJIiwJar DsTqwoQdYQFouQO9GK37IP53wFIy r4B5iUM5H9SyUFMivagr stpogBJ0DBRgBUHsvR76Nw6poIzo Aj4iRFSkXBC6BIFsnSFrK6JdfT6b HhUjPPNcNCRiB0DrjCBd VBjkA703DUrzLmZ2NULxxnCjT6Pl XNGvlSdjJtE7s4M9Fa2ZM9K5EK39 MI49nGVjj4V4aFO3S0Ib QFQocrzrkpwocLH8WJNeZJEjhL60 Il0woSeuEe1sYEPvSAT3XKLtxHKg T5EsaO9pUcWmBDJeOMHt D3ZbsBJmYNowN553CJwlNdD9TBYb ztPgW7HlPBGekRkvEfT8s9S0Wo6W WUv8TM83KG44hYKdp9X6 vGY8E5AyMLPqtmnunutqgJC8CTWe ISHxyJ73Dn1cmZpsTv3eGUNpCNZ1 NOGmyGZyO6RcaC4oKxCm FEDkGDFyT0MqeSEtLGloP960JTsc QkF2QJSuewMaP3FcEFQgvGdbBiB1 r1O5Yw6ICBCsJF37TDZ5 pUL7ID50YM99Z3XkEfiizMDifKL+ PHRhYmxlIHdpZHRoPScxMDAlJyBz fAcsOZ4lTz0gWUGuHKGm uQjjnOTyLgHyt3giLOMbJKfhRU0l qAmfM1ZykYJ0NMDih5h0Eb72K39z B1FftXW+WZXcbFW6nOB2 aN8wRwMpIgE3LWhdK562BfAeuKAn Hpljq1duo5dblNu6FnG3XXWxvgPg aKyoGEP8k8PbQs95Z34x ORynSVGzQKQuARPeSHXowPkatu6w iK3bJg4+XEWweDA2pSQ7mO6uKkTc BaG4ERkfO692IeDmoIKa Qwoyh6idy3prfGe9VnUcJWXbvmCx oGhkZWJ1e8RsQd59K6BdjWnhu1Xr Wqi8wv82lUNmu1R3sCM3 R2EpVESnkgvctEOhdLdaSQ8lGSQv ggrpOMGytX5wPNXqP6i2EvCtFpX2 VFkhZ7PvfaY3XWKrnUWy YWqpVPM4H65ni6Q9XDDdLSUuBPE7 cBO8aM8heWcvykbtoSRyjUanjbDe iSzuQDfwEGfmF723DPXc lOlmBPXpuR1lSNDrbMYqrWqgIC1s IBLgvhwoKisEUZkBWBSNZY9EUFWl QTwvdGQ+DRQnTEH2hTbe AZelZLQdwN5cAMPhP9c8JfLiUhW4 FIqwN5HvBTAhbimnGn82wD4bUuLg JvX1GZedU8OaxtK4QEXs eXGiCIiwIMS7W01zp4X6PKQfWPIg NRN9nWW9eF9ufZxqtzcvbMHurVra ixLxsPebHOnpYYckX720 AVBdpWznIxUuBnRqZqG0LPq9A2Dh Dmh9SJLtcTtkNS4giMQrHNvhSx0l nDddrPxzFX6jFXPknmib HHWuvE6pMZYgmBXhqUcpZS2aHMUp owupp268AfCcIJI6USPzpQPxG5Ju bU5oXqJkOLPxISCiL7Ol oGPmLWycZ549PVytInD2ZYRfkwOd Q3UoUOJhnRsqCyX4n6E7Cz73BmPO ZWFyczwvdGQ+PHRkIHN0 cUnvFQguJPDdrW2jPXCmM4y8SwDv RoO8ADsfI2NwBOAiziviZs15pS0w KvAvUfZ6OBdbF0JaqhS0 UVOjxYYdPWboYPZ2B89cp8G4WXWj EMUyGDY2bLK4iR3igLjncvwpyFJj dDsgdmVydGljYWwtYWxp K451XTJinWcqBu0rqNU0C4SnNbp9 FNUtrIouRJ3hqNUaPGsuHj0oiKgv lFvxJK6tVZRdhptvOCWv nL0oRJNkqOIjvBzdWY4dHMWxvpej q621NdPhDRF9VDOrxGUoW3HloT3g KtLdKIWeXKJkU3JphVMd XBltQ176CPjbZsH6MELfabRvL4Bo GJKtzEtgQwM4a7E6Oq0KgCSgH1Nk K8b2R7LpFercdNE+PC90 CSAjHO97lSKqdHWso0bicVp2RaRr BRWgCKP6bUcbNZgkg3BqYZRyX37j dGMbx7H9SNGeaDuvuSJv XpYqgEK0dY0hHMfrprxsu5kjtdbp Dlysq6mmcw88jF98K95hZMefSUOt HXUmPJOnHOAncItwac9d nY2pFu0+SDOyuDO5fYO9zZ9sNlGa OnN3KOpjO554HvQcuTKsVcles7iv n7wgnQz1QdWmQAVbbmDg iXjwVMK1e5HeTd19U60pKVnrQHFo LSRaAPWjSHNxvVutwe8fbR6gJh8+ FN5go4kyjt69kP31bOZ+ OSGqPSY4tYrlMQnxQJTfvV7fPOzu ObN3PBRhRuPonU51vGKjLHrsDq8z bGeuxQxyKC0dZVWewuxb g443OnOit7koGBFavRVhDKykDFS1 B44bd0I1HAFaOGOdSYL2nRQ9hR3m bGlnbjogbGVmdDsgdmVy zGcaLXruSYqkU372AAOkuCbdLhEb lRKyI7fduyFPGF8tZggxuGA+PHRk AAH1hMsxLQcvZKXfyP0t GTVmO9b9CpIoTnE7DBmfU6VaygL7 VHOqnJNrJEGrvLIFbW4kvuhpi4zn cahvPeFsFAEaMYn3WVj6 SCLxqZtcHkFkBOG8MnW4LPP6xGJl kD6bqCvvjwfxxT5sNwb+RklOOjwv dGQ+XBNqHDX6dSqhCVlm JJZgjQ5yCCUtR3a0ZgJjXpW8RXxi Z3MntqA2OLKkzGYkPXDysDIWdC8g belaw7jpoohtCnHmJKXy YIp0QJh8DOLndRqnTeUtWVZ4LhN8 CSV8jIGrcL3vwPlbaxpqlG2kLru+ TVJOOjwvdGQ+PHRkIHN0 sFncGLiuSDCurJ7cUFBzW2l9AkUb HrL8GEmgG3AaxrX5KFWrvBNdBTJx yNCNjH5mlwxnb7tmnmcf NeStNUSsFLi1RNx0JCCkgGlhJdRc HQT8KlF7FOS8bGClmW8zvTuutrtt jA3sYlj+EJA4FVY5CK76 JX73O7MgZblmxUFsrQI+PHRhYmxl SDizIIJfSFffDDNzFgTabWpiNE7f Bk0oPPRoBYRbcUevoINu UyPog9he (more content not included)... Normal [facility] Coding Summary.on 07-10-2022 Coding Summary. CD:[id number] Gh0bWw+P GhlYWQ+NU1JCOXrI72yqEGrwK1eP 0NMTElOSywgQVBQTElOSyIgbmFtZ K0omKKgWYSv IC8+VM0iQXSsZznwbJIis7J3gKP2 W70foc1tRLcokBA3ZUVrHnXywuaa v1iinNr2CWtnZwjoHxBh IMEedZ80EIC5mW14Me48vHJwcTDv n3vtiGk0ZiDyKCIcEGY0pYlqIDve s4HnNNJwF84rbMZzm9M6 MEIriPwkfLZiJeRzuWV0cV9fEPkh ucnnz2nlsbbzPfc8iq18cTIyr3A7 gGO6Y5XnfyQ0HJMmdKWw KeubtLVGuR4lrjvbx6tjafimJtXc PHGbCZy9IUa0EZLxjZwfXlMyJG24 TBS3NKMkgfRvG0CiAPTc yIhcUsV5v2R7Ip8XV6ZYQsgrI9QF TUFSWTwvdGQ+OE27at76L3YwWvln Miy0OGRvQOZ8xTR1nM9o QLDaFZroj7Y8uHY9S5CtbmDrfx5s d7ipFOUdCFynC09dtYRpq2F1SGUb lRZ8HJAuaHxyAwBfcZ97 Oyc+ROWjbLoyn2QaNrfzk7rjf5xz nVc2SjhlMEOpjvRynYjiRXS6i9Oc Pz8eYQNobGQ6yIX0mF8d ZpZqCfF3OXtrT348AtGlwZQbShds C19tZ7DmhCB+IGSrJut7NKNezEjm DQ0sO8WaRQNblafqiRMi iPjcPE2zMTPotqohJEYxnB4fVLLz B8c9NdUgHwD8EBjwE6ZvQWCmymxn Dl41eU8eVkEvNqW8OWij E8BefuB1HGXloPQyKAuwCNR9C09r w6I0FQCrCJZvFBI2aGV9zD6okRub bjogbGVmdDsgdmVydGlj DEflUMujO559OJIagJbvLvPuGFrl ZyBEYXRlOiAgMDMvMTQvMjAyMzwv dGQ+WPYjFFS8sFiaEGVi qQOsVZgxQa7fpHlobIyiJF9cHRDc zmrpWBEfgB5mHLCukIDpmOacEZ6y FBSfsqcho509TbFnUZL1 ZEOweQWgD6BgtX8mSuPcDWTsSXDs C0RfwWSlWUbmJ566OOmtGzT1HJPw vwSnM0AvWUAicXlrHqY0 o0T1Ot8Qu0PdmahrA8YgdKSzGkIi KjlkYXz5U8YeNokekMH+SN82KFUi PT32ABf1OVN7xQnpITst AJCgJ9CmoC4qHyMtXYPnXEWfKvx+ PHRhYmxlIHdpZHRoPScxMDAlJyBz vZbuNC6yOp7mRGMgABMv gMgxrANaUtSie3isQYFiLInsJV4v hGdpO6SteWN5YUTbx9x7Jd98O17f F1OyqFF+QNUngDY2wJV3 iJ7yOxFaBcA5EWkoX167SxHppVPz Rklac6yic4pfmBk7NlO9ERNaolSd cKsgFNZ8z0XjPh64R39u BWitICGnHCWbYIPgDASbwQsrbv3u bL8kQs9+PBIdbYU2lFM4zI0sSgUh ViU3PRqvR858CjWaoIFp Ebhcg8wvh5egjKe0QxFuMJFfqxZt xWqpYWJ3f7PdCr75T3RnzTrcl9Kj Gjt2ea36xDWxg6G1mMJ2 X2NsLFQhbxyacPAqwJgiQH8jDEKn sejbNCRqvC5hNIMcV9c1ZpKgRdN9 WVfgN3JurgG6NYVfpDAk FYNgcCHYzW0dynaza4oouymwPnHf JZAjCOd5SAn6NYQvoQbpEtReOYA8 MkT5BEE6bGMzrS3efPib qcjokT4rQgt+HQE1sSNbpDDVKT8n OjwvdGQ+ALQeYLR8dOegYGafQIWl lY9rNHUnN2o1TfLdPnE5 NDngX8XhkoE1TTImgNDjGUNkhAHB rW7uujrye7zoraxdIgQrIRDaZJn3 DEh9PVJhnTpqNvDtDYY5 LbA6CPZ0aBWstW6gsVhtwdmabD9b Oyc+SmezoSlnGSG8GHz6R7EvYdm8 EDMftZoeVM2lzJYaRFem Mq2zlYargEjcYN6bDRPcjosqb907 GaOtl0skYIInaMYcKOusLRJ9Z11f a8J5VAVgBSUgLCX2rHQ9 rB4prQgrwhhguBUfpKluepHuzZir QHziIZyhK335LCXifYbzTaDbOQh8 R1QcAso8KJLtvAegDM2a fRJyFWekCf7vkKufoYizDA1lKMQy dubpk269TgPcq4grOSAelWUaQEpj CPC6X86oq2T0LIEwLCDs ERW5gCS1hQ9eaZsdrmowgIDqwVrt wmOeaJfmWGwpUNyrF898DEGvuDra WxNxdIa9M1QcWwq4CAQs gUqdWV4unAAmVDgsIk5ylNsmhJrx DL8vHCFfxchbl438SpDec4tbEVJb tHMtVEmhANB0V67vd0Z1 RGQtRKQsOHU3xHQ9bP2vfEurizzq oQQkoGmjmnSemUikBGwtOHiaG464 IHRvcDsnPlBhdGllbnQg TJhzKMy1V2JoLcbxoJH+XA61NLAy GJ84cXTitQQrt2ujhJl3DaPhJCDv QLB0mBteIEyfz1MaVTSx B67wsJDib1H7ODWlbSdpjUQdMiPz kJH4fX4iAVrrjalqi7tewornFnec t3wtxm10pZ92Q77jBPho UGFxDDGsREXvNVYuuUqvfe7zgB2b Ii8+HFQhqLL3pGO4cT8gEBOfAlV1 RJeyB900JlQstUFjDdrx x6pmm0ficOi4PoP7MHKadfSouCng YUU1k6KzLr58N18cZTgbAHFdEMHf YZGlYFMpnHoihz8xrV8l Ii8+PHYxyIW5bKM5gU6cXtSbWcU7 TLhzQ486KsRrcVNzMiofT69sG2Zw dXA+AVSwZho1WKBsaZlg HX9frQUrBWkgGx8gFWC4HuQsFtVy FKkcN9HxLGAxcugbexsveJS2XCHv XTOzyI07Kl5fnHmwDEGk pCSCjQ5hnipws0okyrxiWdJdAIAy AAi3FXm0WSKkrAbrAnAaMZG8TzZ8 QAM2tFFfhD7egQkzexes kO2sK3IoIKDdfdywGx15mT3tWlEy AyH8VAbgZny+U8YZFFkaBDMLJ94D WsZHCO30YM02qXUyb1E9 zUS0V3MhZZXdbbzhbytzeEN6GJMt CRNypI18cNEgIDdhXz7oh8N3e452 RNAdZUCnwG33Vp7orMhp MGHotBDYwU7kktvwj5suujdoElWj BNEjHHj7UMq8SPOsdCyvIaNmXNF6 WcE0VIQ9wIFlcH7tuRuf ntbvkT6oWmz+UQEbATItLLq3Itso dGQ+LRVgILL3rDroZAtnWRAqgT1s HIBaK9s6ExBkIoW6IFfi H1VxZNTviwxcHt69zP1mQfWuIrW2 JLckG6IqlmT1VQKuiKEeUHnjGLH8 I69te2X7PPRtYXTlNHI3 oQE3pK2uiFfuigwlpYAfeRyssaPn uMlyKCnlXGjvS703WIDtzXfyZus1 CXmlOHEvXR09CV57cTMr e1S2zJN9E8AdMZYhtjoldqtdhWG6 GUQuYYQkwO94hSFeDSjmCt5ey7R3 e869ZQAzJQUbgQ50Oq2l hCikLJItcPHRjS3scdvhb9ugjofw TyVxVONmENh5WPq0YWLxdAepPqZy ACH8WkZ5BEA4oOJiwA0q xBaymjediH0nGyg+TWFsZTwvdGQ+ IOEcCPH5fTetXMghMAEyeH4mYFLx B2n8GnYjRkV9LTwaG9Vx TIMsielzUw70gW8jWcFjGtE0TQjq U6ApeiH4MJVxeSIaOOoaKKH7F11j j6W7LVUlZXHyCWM0aQU3 zI6fxGhgifjtyFNzsYggzvJeiPxo EOclVVcdK903GCScdWwnUf46gZAw rRgbyeR4L9XcJrlbsHS+ NP64BZBnLO07pKLzgSSkj3ddmPr9 FuXpIBVoWNA1pWknVDwyu6HmCCQo H67jmYIuj0A1DKYmgKmx iBLhCzTvuCL3wK9zAQnowpghs0xt pgegPxlby1wlzf73xI53J35mNKpe ZHRoPSIzMCUiIHZhbGln ya9gbV1kPq2+HWOxlXW5tVX0iY6g NkDwYeU7RNamP373XfLjwTUtTjnx g5zdd5hwoZs0BkKxCMGb zyVtkWhdOMG4y2BtNz40W24rPKbl XDUbCONjMXNhFTCrbUpuaj2bbE4o Ii8+EW9en5aepi43bU85 dHI+SZJlJHA9fYcxYRoiCCSdiD4y IAvmTxF2WYNlGsRekH58qQQaNSdr Kc7meZpfwCxdQI8zFWXw djheo280MgOin5ilMJGhbLMvTFzs QQV1C47lr0Y5QIRsMKLgMBJ4pIQ1 cI6ptYcnlagcrNQxmUxf naFnsGvjXHtxRVrnK114YOCihPsi PfZyrNRnX0nzffVILT1xZvdjxAA+ BVTgZNW7kPexRPgyEUGr uP8nAPKqI3l9BnQjRjL5YOovQ8Mg huB0HLTerZVsCBTjwPEPrD3omndo k2airbifAmSdIPMmKOo1 FWf4KSZweEwhKqRnSVP2GeS9MEW8 eXHpmV8hyDdlomymzU0oRkm+RklO OjwvdGQ+ZODxGVK5jOye CKjlYRJgeM9oQYYzD9q0OtXeHsT6 HOmiE2CfilO2RGAipRZlTILbfHYN lI2kofqqx0ojskilMxOt AUQnIKs0FVo0LGGinXewNoQbCLX3 MaU7GRD7gUIsyX7lvXtskrizxY1c Oyc+TVJOOjwvdGQ+PHRk XBP9eUayDJklYCBpoG1iPIMgQ8o5 AzBpGlN2WRnbV1IuabD5PUPlmVOe HKNvmJMBjW9mmcajq1qf pvepEmYqGHJuXGr8RFn3UWZzyNeo WbGfXDD1IkG7FJL1jCXenX1weQvw grenuX1dEvs+JBF7HGU1 HA16QL31L5VoCkzwiBCmlCO+PHRh YmxlIHdpZHRoPScxMDAlJyBzdHls ZF6lRd0xKSAlXZHxwSkh cHNl (more content not included)... Normal [facility] MRI Shoulder w/o Contrast Nm grecia 07-03-2022 MRI Shoulder w/o Contrast Right [...] Fluid extending into the subacromial subdeltoid bursa. Jgvd-bc-mfmu contact of Report the humeral head with the acromion consistent with rotator cuff arthropathy. Ordering Provider: Tulio Vaughan FINAL REPORT Dictated: 07/03/2022 1:09 pm Julio Arcos MD Signed (Electronic Signature): 07/03/2022 1:09 pm Signed by: Julio Arcos MD Transcribed by: KALYANI Technologist: BRODY Technical Comments None [facility] Consent for Treatmenton Consent for Treatment [id number]#[id number]:127 Normal [facility] RAD - MRI Screening Formon 0 07-02-2022 RAD - MRI Screening Form [id number]#1.00CD:127 Normal [facility] Physician Orderon 06-29-2022 Physician Order [id number]#1.00CD:127 Normal [facility] Pre-Certification Formon Pre-Certification Form [id number]#1.00CD:127 Normal [facility] Discharge Instructionson Discharge Instructions [id number]#1.00CD:127 Normal [facility] ED Clinical Summaryon 2022 ED Clinical Summary (Inserted Image. Linda ble to display) [place] [id number] ED Clinical Summary Person Information Name: ESTRADA PFEIFFER [place] Age: 77 Years : 1945 Sex: Male Language: Algerian PCP: Rinku Encinas III, DO Marital Status: Phone: [phone] Visit Id: Visit Reason: Shoulder injury - [...] 06/24/2022 23:50:53 06/24/2022 23:50:53 06/24/2022 23:50:53 AD[address]ESS: [address] [id number] PHYS DOC NOTES: MEDICAL INFORMATION: Prescriptions Given: [...] up: With: Address: When: Tulio Vaughan [address] [place] [address] Business (1) In 3 days 06/27/2022 With: Address: When: Rinku Encinas [address] [facility], [place] [id number] Meetrics (1) In 3 days DIAGNOSIS: Rotator cuff injury Normal [facility] ED Note-Physicianon 06-25-19 ED Note-Physician Basic [...] and Complexity of Problems Differential Diagnosis: [] [facility] Data External documents reviewed: Not applicable [...] Vaughan In 3 days 06/27/2022 EST [address] [place] [id number] Business (1) Additional Instructions: Rinku Encinas In 3 days [address] [facility] [place] [address] Business (1) Additional Instructions: Patient Education How To Use a Sling Attestation Patient seen and evaluated by the physician therapy assistant. Attending physician was present in the emergency department and supervised care. This visit was performed by both the physician and an APC. I performed all aspects of the MDM as documented. This report was transcribed using voice recognition software. Every effort was made to ensure accuracy, however, inadvertently computerized supervisor screen printing mistakes may be present. Appropriate healthcare PPE was used in evaluating this patient. The patient was placed in a mask. The healthcare provider was wearing mask, gloves, and utilizing proper hand hygiene. 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 Normal [facility] Comment on above: Result Comment: Elec tronically Signed By: Jazlyn CASTRO, Amadou aRi\.br\Date and Time Signed: 06/24/22 23:37 EST\.br\Electronically Co-Signed [...] 11/27/2004 Document Revised: 03/28/2018 Document Reviewed: 03/06/2018 [employer] Patient Education ? 2019 [employer]. Normal [facility] ED Patient Summaryon 023 ED Patient Summary (Inserted Image. Linda ble to display) [place] [id number] Patient Discharge Instructions Person Information Name: ESTRADA PFEIFFER Age: 77 Years Arrival Date: 06/24/2022 21:36:41 Discharge Diagnosis: Rotator cuff injury Primary Care Physician: Rinku Encinas III, DO Provider Information Primary Provider: Josh Obando DO Advanced Screen Examiner:Amadou Hobson PA-C The exam and treatment you received in the Emergency Department were for an urgent problem and are not intended as complete care. It is important that you follow up with a doctor, nurse practitioner, or physician?s therapy assistant for ongoing care. If your symptoms [...] Instructions: With: Address: When: Tulio Vaughan [address] [place] [address] Business (1) In 3 days 06/27/2022 With: Address: When: Rinku Encinas [address] [facility] [address], [place] [address] Business (1) In 3 days In the event that this physician does not participate in your insurance network, please consult with your insurance company to find a nearby participating provider. Patient Education Materials: How To Use a Sling A MESSAGE TO ALL PATIENTS REGARDING OPIOIDS PRESCRIPTION OPIOIDS: WHAT YOU NEED TO KNOW Prescription opioids can be used to help relieve qzcplwce-el-cfmlfm pain and are often prescribed following a [...] addiction, t (more content not included)... Normal [facility] XR Shoulder Complete Righton 06-25-2022 XR [...] in mGy = n/a DAP = n/a [facility] Consent for Treatmenton 05-31 Consent for Treatment [id number]#[id number]:127 [facility] Coding Summary.on 06-04-2022 Coding Summary. CD:[id number] Gh0bWw+P GhlYWQ+MX5KCMElB29uaNUtrB0KE 6tITH5YSDBEYNAPMO4JED3ixNI5J JtaX9BmmiCy HaemmVIwCR70MGx6YLI2jDheZLac dA8eaICoH8w9JrZkKI92tO91TVxk ZXJlJmK3TaSyzmlqzZWz B3jdCqFrrPKeCxt+PHRhYmxlIHdp CPYrLNpzOCCxNzMeyKhaOA3rDk2p ZGVyLWNvbGxhcHNlOiBj s5onOKYiTCmjAR4ylPwtL3ZheCZ5 XDQci0q8Kb68pBY+GLQrSDW1lOxa IKhfz046RiRhw1paMEV8 jOSoPGrxAJR3C56mh6I0NLGlWBQm XCV0bYY1aR3ydFahsqggK4ObzRKv HgZ9NJZ6fHWntK3wbKej wkzpdC0wRye+F95LTB9FSKOHTV8A Khv3P2KaRfweoDE+ZQ31CQMnVG68 fOPxlLUnc3opxJq0YsLj XMGdFLC1jSinZCfrs8NrHBVbE30b hODuh3H2HVXwdAojqAZuLxUgqMQ1 pB1fUFoxniwsg8yresto Yxuuq3sjuj55uX69Q20eACgcTOQg IGA3KPJfQBGbyOimrp0shY8wOg6+ VCggt3bfe5mlcBz5BmKr FKOdjxYxaGueEDB2t2HeBe21T0Ru cYbek4AfYnk5pw11qFZvm4V3rWC8 RTsiLTRqjO8jMNwyMlL7 BSTuRgYvjQ07sLPfIMjaFb2htPqx pMafPP9uMCSoyoyuIBOtnR8nHTBr wRLwuAlwZQ3lXAHducrs q340NvKuYGE2CHSzyISxZ7XohE6g MiKiVWOrOWWhT0PbcIMbIKofS393 WPohRsZ3PJXpqoLmT3Jn EQYqbIiaGpU2s0C6Ab6Ib1Hzvcxl OJK8ACoxHPVpRgQ7ZjHcNcR4F2Bz Feu5LLGneAxcRR2hG7Ye NGZqwgpzkgbdwEP3ZBEmFVTnnR58 cFTmBSskMd0fe8U6g878SWDtJLNt oO18Ib2gvWhuEIIazYGQ iP6oooqaj9opefbiBxZySLPgOLh2 HTl0GHGhuIocNkLhGQO1TbD0ZRO7 oCDnxE4xgUulmvqqoX9u Oyc+J92spK1kFMW4QOM9vlrhRSEz nzRrWU85MK46X9WiHdfxdXEoeAB+ TORdelCdqSzkKC2oSiOw m0nsm8IiKHmhT0MlFEBiUZosVoh9 JMFfOSJ1zXD5wF7kIKMbCSytr5F0 dAG5Z8VxmxHphh5ip2am VIOzOGupW04aaJGvm3N5TMOsvBK8 ZEDqlSgjDdJicW26Fcv+PGNvbGdy m6GoHuicl9vst6zmnWy4 ObTjMWTlilVgfVrtPBM7l4PoEe20 Z97sMXvfVBNdLSMwMQZzIJTdeFcv qq7qyN5fMb0+PGNvbCB3 zTH1xE8kTHPuJqJ9CGkjW362FiVt qLMqSascm6xdm4qavMc0CnAgRGFi prAcbLixSLQ9f4FmMk17 F29dLEqrAKSiFTOlKGYgJFLsgCeu vb4rmA2tJt9+PY3rk8eljy36cF85 dHI+BASeQLJ2xRcsLGpf HOTjpQ6sHKraNrU3HCEsSxVzmZ34 kHWrINjfSp7bvStcaMidHH3eHJZk nmszk073HuNbx6jrVZEx pMVfNYbaGYE6O54wz7Q7ZAQqFXXi CQZ4qEC4hH5opCcxqocnfQPmpUnr dpUbmVfcQBjeSBccX255 IHRvcDsnPlBhdGllbnQgTmFtZTo8 X6DnLqt1AMDisLdnYK1qbKMtHWcg Nn2paBvruTfwUV9fTWOe bclwj027GjFbv6gjOPPkkBNbYEhv QKB7Q45en5O7MTGiRZMgAKK7kDF6 wR8seLfgaebjgWJzeIgt udBgiPqbEUpmQOytO419SFXszEtw MoQtwzPbJAGukUH8JG72MG75gFCs o4L8hTN6H7PhSOCuyult pixkwWE0FVQsUMEgpO17Bx7ekKzv St7ePNHeNEU0QHOzjTRqV9IdaB5w UfSmESUmRXNsS5WhuGIj BEjhP385HHkcUlI8WSEhezOrV6Iv OFRopNroMvA7e2T3Tk7VX2G3XH09 TX65tQZwj4O2oIM7A4Jl DJLplgxezfyvsCV0ZCAhITGrhF84 Eq0tdJieHq3bRAEbXNS7NJLpuRUf K6AqhO9xNeAzBXFkHCIw E9DdpBYsIJbrH087YNxnLkZ0JHYv vdDiS7MeNSVwnLueCgV9n4P0Iv8P OVy7KD06KJ36cSYip3F2 nUP6X5XzDEYukbweiqbtkRK0HUKw GWZfeG25Lv7zwMosYd9vJIPrGZO2 UJBqtMPlV3ZtjQ2sNxMq TQFsSLCeH7OjzZDmSJmeR854FNds GtW6IRVgknTlV1OvZQDkjLdwSaN2 f4G2Fz9CQBOeUR29DUR5 cRK2AF87CN13W5QtHbvhyJSioVD+ PHRhYmxlIHdpZHRoPScxMDAlJyBz yUugEU0vFw7zUXAaHGHc lVouqBIhYuXxn8vxHIMuUPznNU4w eOlpZ1MfdOB5USYat6w0Yl31I56e Y2ImwNZ+MPZchBC4rHL5 nX0zSjRlNiV5DTfdH508DaDnaYZz Znjvi9oql8gzlMh9OnB8GEJzufWb hGulGEC9u6YhAt75X14q NWegZOMeMOVrHRHrGZVbgZxbsf8c wA1rPp1+YYTcqSL3rEH8nK4uCyTr FuO3NYjyP169OjLvqTHu Tjhng8dsd0qidNh4RrBmUPPsjeDy jQguMBR6c0XzZq78I9CptJxev6Fk Ucj3bn96aPBwe7F2kFM4 F2FyPPRpqckzeEOmjYduGW4bVBRl mylqSRSdaL4sIQFhD2p6TxQqBqA3 UBvhW5NhzzE2GNMmkHHn WPqlFPE2H06nn0Y0NMMcJZHlCBP5 kOA1nY8hyEuglplbuMVflVlbvqHj gZsjYPymXGkbR770OEAt wJsdGQWraP5yHDDhjGFsyEdzXY7h UXEztoyhYafACYfMHNJURM6MXUSn QTwvdGQ+VOVkXIQ1zZhe LAhmMTEjzN7sCLLrQ2p5RgBuKcZ7 HXbvQ5PuEKUupoodKn12mC7lBuLh GaK6ICjuE9YxidB1MFAm pUUcALnzXCP0J42tl1X7UFGsAWZe AXP6gJE1qZ8vxVpzebbcjUOwkTvr vdGdiPjbLSrfYXmmO302 ONRpnUcaEuCbBoLrZdF6KYg4A7Wm Cmf3ZQCntOeoIE6tpHYsFZziUf3o iNebsKzaSH1oKGVxkguh WWJqnE4aOPAdrQQpdBaxOW8zPDGm wppdj152WwMpABJ2KSQkxBViR5Pl qZ4tAhJgFTEhMXRaW2Id sDAnOTamQ666LMgaVvA6RGVylzUw M2SpRAKdxHazJyF2j4S5Sf58RdEU ZWFyczwvdGQ+PHRkIHN0 tKqkPFnvAKRsuJ0hWSYbZ2c3PbAc IdC0YVulT8EnTCLmamqaUs55hL6i JbJaQmF3GZvlE6QqqxT5 KTYuhFOnSPumEDC4Y14uh3S2CBKz ORJwUAW2iZB7dO7ngVaqyikmbPMp dDsgdmVydGljYWwtYWxp U267JECfzVxyOv9arWV4K0ObWuc0 FBFtyLoxKT3bqTGjLYwoOd6bmOfg pQasSM9dLVSroprlJCSf rJ4bIBDgrGGkvMowUO9oRXRfasjm k253KrSwKIS7OGGsqWWmV9VuuW1s VfCpXPNjWUQyT2VsyKDh SLulR428NGtcSlR7KNDsnjYvQ3Rj SXEmyMgiRaG0a5E6Pq3ByNVvCGJq FS40IM91WX61Z9ZdLzbx dGFibGU+PHRhYmxlIHdpZHRoPScx PQXtBdMmnWweLR0gHo0rMTOhVVHz nLcjzJBlVuJyo5leXJNv ZCarML9aaDotZ4FvlVY7JATmu9o6 Zc85G59qS9MueTV+MMAchPK2mXT9 hF8cQkFyQuA9JCqmR601 IvBbhJUhJbeum0nso1wyzOf3NfPu SDUvnqDqpIkqBZF5f0OeNj16M20w IHdpZHRoPSIyMCUiIHZh gUdzdb6ucY9lCd0+ZMYhqJM4aZZ1 kS9cZyMoDaC8ACuxZ743JyZteXOy SgykO77hQ5NhmKO+PHRy Inz1WMWcmChtSE1byZViTOwgWb3w BMR5SuVeNiSfBYflR9CaOCWmdhwn fyfotEW3IEDiNAQqkB12 Dh9ffXcwIm1gRQFwJCI3USGacDVp I1NmgY3sOmByWLQwOIEuO7HxfZTp OVqpF293SSvaOoG0MGLq kdGiI8GyTCUkbJqgQbV3p3B2Cd0U gXgyuMLcMJ3lTfXlYVu4A0ViVzg2 JFAqtSgqLI5uzWXqPOpw Xt0otThsfRijGU6sETNeqrjnf840 IhZzl6vyFGRoyZGpKYjhSHK5I24r y6V5MIAvZBJxGEA9xSX4 qU0zdVhukfbwbSTjqIjgxmBatSsv GVxrFQkyH774QBDmcKefNqWGTir7 K1VnLji4JHKibQssWB6n vEGpPHkvBv1ioUnipWhwKU4vUKVk xgofx830AuDqg2wfQGOqzMEpCJld HXO6S87js3O1XTDzGJAq DNA9rEO7fG9loMsvcyxzhLFaxWiu wjDmzGmlLXbvOQdcE067AMWfsJur No9ACnr2L3OeIrt1FOEy kRawMF5vfRSxIVeaYi3fqAvliTpd DB1qRXChvgnkn703VtCjx6hcTSXj iLOuZMahIYK5P97lp9Z9 YTNzNYCxSQY2gPY3gL5hhBjgwwzj gVRbbWomerXhmIveQEyrPKlhF215 IHRvcDsnPlBheWVyOjwv dGQ+BF08xf71I1NgLlaqSsh2JRZk IJV7vND9aU1tGDVcORytv5G8zHD3 S4PkiqDopb8ij2cnXDWq [employer] (more content not included)... Normal [facility] Office Visit (Cardiology)on 05-31-2022 Follow-up visit [...] several months ago by vascular surgery at [facility]. Lipid profile from recent testing was reviewed [...] he had venous stripping last year at [facility]. Sleep apnea on CPAP machine with compliance. Summer Deshpande MD, [facility] Surgical History Problems History of Cardiac catheterization [...] for co (more content not included)... Normal [facility] Tobacco Screening.on 023 Fall risk assessment a) No falls within the last year [facility] [address] DO Work Phone: Tobacco use status CP b) No [facility] [address] DO Work Phone: Tobacco Screening. Yes [facility] [address] DO Work Phone: Xu 05-30-2022 ALT No additional P-5'-P [Catalytic activity/Vol] 14 Int._Unit/L Normal 6-46 [facility] Comment on above: Performed By: #### 2 [id number] #### [facility] [address] [place] [address] [place] 05-30-2022 AST [Catalytic activity/Vol] 16 Int._Unit/L Normal 5-43 [facility] Comment on above: Performed By: #### 2 [id number], [id number] #### [facility] [address] [place] [address] CHEMISTRYOrdered By: SYSTEM SYSTEM on 05-30-2022 ALT [...] Remisol Consent for Treatmenton Consent for Treatment [id number]:127 Normal [facility] Lipid Panelon 05-30-2022 Cholesterol [Mass/Vol] 138 mg/dL Normal 120-200 [facility] Comment on above: Performed By: #### 2 [id number] #### [facility] [address] [place] [address] Cholesterol in HDL [Mass/Vol] 49 mg/dL Invalid Interpretation Code [facility] Comment on above: Result Comment: HDL > or equal to 60 mg/dL: Low cardiovascular risk HDL < 40 mg/dL : High cardiovascular risk Performed By: #### 2 [id number], [id number] #### [facility] [address] [place] [address] Cholesterol in LDL [Mass/Vol] 71 mg/dL Normal <=129 [facility] Comment on above: Performed By: #### 2 [id number] #### [facility] [address] [place] [address] Cholesterol in VLDL [Mass/Vol] 16 mg/dL Normal 7-40 [facility] Comment on above: Performed By: #### 2 [id number], [id number] #### [facility] [address] [place] [address] Triglyceride [Mass/Vol] 82 mg/dL Normal <=149 [facility] Comment on above: Performed By: #### 2 [id number], [id number] #### [facility] [address] [place] [address] Physician Orderon 05-30-2022 Physician Order [id number]:127 Normal [facility] CHEMISTRYOrdered By: SYSTEM SYSTEM on 02-06-2022 Prostate specific Ag [Mass/Vol] ng/mL Normal 0.1 - 3.5 ng/mL [facility] [place] Falls Screening (Age 18+)on 11-16-2021 Adult depression screening assessment No [facility] [address] DO Work Phone: Fall risk assessment a) No falls within the last year [facility] [address] DO Work Phone: Tobacco Screening.on 022 Fall risk assessment b) One or more falls in the last year [facility] [address] DO Work Phone: Tobacco use status [facility]PH[facility] b) No [facility] [address] DO Work Phone: Vital Signs Date Time Vital Sign Value Performing Clinician Facility 05-24-2023 13:10-0500 Blood Pressure Location [facility] 05-24-2023 13:10-0500 Diastolic blood pressure 82 mm[Hg] Izaguirre Sarmini [facility] 05-24-2023 13:10-0500 Heart rate 68 /min Izaguirre Sarmini [facility] 05-24-2023 13:10-0500 Respiratory rate 16 /min Izaguirre Sarmini [facility] 05-24-2023 13:10-0500 Systolic blood pressure 138 mm[Hg] Izaguirre Sarmini [facility] 05-09-2023 11:00-0500 Diastolic blood pressure 78 mm[Hg] Izaguirre Sarmini [facility] 05-09-2023 11:00-0500 Heart rate 53 /min Izaguirre Sarmini [facility] 05-09-2023 11:00-0500 Mean blood pressure 99 mm[Hg] Izaguirre Sarmini [facility] 05-09-2023 11:00-0500 Respiratory rate 17 /min Izaguirre Sarmini [facility] 05-09-2023 11:00-0500 SaO2% (BldA) [Mass fraction] 97 % Izaguirre Sarmini [facility] 05-09-2023 11:00-0500 Systolic blood pressure 141 mm[Hg] Izaguirre Sarmini [facility] 05-09-2023 10:45-0500 Diastolic blood pressure 75 mm[Hg] Izaguirre Sarmini [facility] 05-09-2023 10:45-0500 Heart rate 60 /min Izaguirre Sarmini [facility] 05-09-2023 10:45-0500 Mean blood pressure 93 mm[Hg] Izaguirre Sarmini [facility] 05-09-2023 10:45-0500 Respiratory rate 23 /min Ziaguirre Sarmini [place] [facility] 05-09-2023 10:45-0500 SaO2% (BldA) [Mass fraction] 96 % Izaguirre Sarmini [facility] 05-09-2023 10:45-0500 Systolic blood pressure 128 mm[Hg] Izaguirre Sarmini [facility] 05-09-2023 10:40-0500 Diastolic blood pressure 85 mm[Hg] Izaguirre Sarmini [facility] 05-09-2023 10:40-0500 Heart rate 59 /min Izaguirre Sarmini [facility] 05-09-2023 10:40-0500 Mean blood pressure 97 mm[Hg] Izaguirre Sarmini [facility] 05-09-2023 10:40-0500 Respiratory rate 12 /min Izaguirre Sarmini [facility] 05-09-2023 10:40-0500 SaO2% (BldA) [Mass fraction] 95 % Izaguirre Sarmini [facility] 05-09-2023 10:40-0500 Systolic blood pressure 122 mm[Hg] Izaguirre Sarmini [facility] 05-09-2023 10:30-0500 Body temperature 98.06 [degF] Izaguirre Sarmini [facility] 05-09-2023 10:25-0500 Respiratory rate 16 /min Izaguirre Sarmini [facility] 05-09-2023 10:20-0500 Respiratory rate 15 /min Izaguirre Sarmini [facility] 05-09-2023 10:15-0500 Respiratory rate 15 /min Izaguirre Sarmini [facility] 05-09-2023 09:35-0500 Blood Pressure Location Izaguirre Sarmini [facility] 05-09-2023 09:35-0500 Body temperature 98.06 [degF] Izaguirre Sarmini [facility] 05-02-2023 16:00-0500 Body height 180.34 cm Priscila Mccormack Other [employer] Other 05-02-2023 16:00-0500 Body mass index (BMI) [Ratio] 35.56 kg/m2 Priscila Mccormack Other [employer] Other 05-02-2023 16:00-0500 Body weight 115.67 kg Priscila Mccormack Other [employer] Other 05-02-2023 16:00-0500 Diastolic blood pressure 90 mm[Hg] Priscila Mccormack Other [employer] Other 05-02-2023 16:00-0500 SaO2% (BldA) [Mass fraction] 97 % Priscila Mccormack Other [employer] Other 05-02-2023 16:00-0500 Systolic blood pressure 130 mm[Hg] Priscila Mccormack Other [employer] Other 03-18-2023 10:36-0500 Blood Pressure Location Izaguirre Sarmini [facility] 03-18-2023 10:36-0500 Diastolic blood pressure 82 mm[Hg] Izaguirre Sarmini [facility] 03-18-2023 10:36-0500 Heart rate 70 /min Izaguirre Sarmini [facility] 03-18-2023 10:36-0500 Respiratory rate 18 /min Izaguirre Sarmini [facility] 03-18-2023 10:36-0500 Systolic blood pressure 136 mm[Hg] Izaguirre Sarmini [facility] 03-06-2023 15:22-0500 Diastolic blood pressure 85 mm[Hg] ANJELICA MATTHEW [facility] 03-06-2023 15:22-0500 Heart rate 74 /min ANJELICA MATTHEW [facility] 03-06-2023 15:22-0500 Systolic blood pressure 137 mm[Hg] ANJELICA MATTHEW [facility] 12-17-2022 13:33-0400 Body height 180.34 cm [facility] Work [facility]: 12-17-2022 13:33-0400 Body mass index (BMI) [Ratio] 34.84 kg/m2 Rinku Encinas Work Phone: [facility] 250 DO Work Phone: 12-17-2022 13:33-0400 Body surface area Derived from formula 2.32 m2 Rinku R Encinas Work Phone: [facility] 250 DO Work Phone: 12-17-2022 13:33-0400 Body weight 113.31 kg Rinku R Encinas Work Phone: [facility] 250 DO Work Phone: 12-17-2022 13:33-0400 Diastolic blood pressure 72 mm[Hg] Rinku Sindy Encinas Work Phone: [facility] 250 DO Work Phone: 12-17-2022 13:33-0400 Heart rate 54 /min Rinku R Encinas Work Phone: [facility] 250 DO Work Phone: 12-17-2022 13:33-0400 Systolic blood pressure 118 mm[Hg] Rinku R Encinas Work Phone: [facility] 250 DO Work Phone: 10-03-2022 13:51-0400 Blood Pressure Location ANJELICA MATTHEW [facility] 10-03-2022 13:51-0400 Diastolic blood pressure 74 mm[Hg] ANJELICA MATTHEW [facility] 10-03-2022 13:51-0400 Heart rate 68 /min ANJELICA MATTHEW [facility] 10-03-2022 13:51-0400 Respiratory rate 16 /min ANJELICA MATTHEW [facility] 10-03-2022 13:51-0400 Systolic blood pressure 132 mm[Hg] ANJELICA MATTHEW [facility] 06-24-2022 22:35-0500 Nursing Progress Note Reason Other: portable XR at bedside at this time. Josh Obando [facility] 06-24-2022 21:44-0500 Body temperature 97.7 [degF] Josh Topher [facility] 06-24-2022 21:44-0500 Diastolic blood pressure 91 mm[Hg] Josh Topher [facility] 06-24-2022 21:44-0500 Heart rate 63 /min Josh Lloydner [facility] 06-24-2022 21:44-0500 Respiratory rate 18 /min Josh Obando [facility] 06-24-2022 21:44-0500 SaO2% (BldA) [Mass fraction] 98 % Josh Topher [facility] 06-24-2022 21:44-0500 Systolic blood pressure 178 mm[Hg] Josh Obando [facility] 05-31-2022 09:15-0500 Body height 180.34 cm Rinku Larsoners Work Phone: [facility] 250 DO Work Phone: 05-31-2022 09:15-0500 Body mass index (BMI) [Ratio] 35.29 kg/m2 Rinku Callahan Encinas Work Phone: [facility] 250 DO Work Phone: 05-31-2022 09:15-0500 Body surface area Derived from formula 2.33 m2 Rinku Callahan Encinas Work Phone: [facility] 250 DO Work Phone: 05-31-2022 09:15-0500 Body weight 114.76 kg Rinku Encinas Work Phone: [facility] 250 DO Work Phone: 05-31-2022 09:15-0500 Diastolic blood pressure 84 mm[Hg] Rinku Encinas Work Phone: [facility] 250 DO Work Phone: 05-31-2022 09:15-0500 Heart rate 68 /min Rinku Encinas Work Phone: [facility] 250 DO Work Phone: 05-31-2022 09:15-0500 Systolic blood pressure 122 mm[Hg] Rinku Encinas Work Phone: [facility] [employer] 250 DO Work Phone: 01-31-2022 16:00-0400 Body height 180.34 cm Priscila Mccormack Other [employer] Other 01-31-2022 16:00-0400 Body mass index (BMI) [Ratio] 35.28 kg/m2 Priscila Mccormack Other [employer] Other 01-31-2022 16:00-0400 Body temperature 97.1 [degF] Priscila Mccormack Other [employer] Other 01-31-2022 16:00-0400 Body weight 114.76 kg Priscila Mccormack Other [employer] Other 01-31-2022 16:00-0400 Diastolic blood pressure 78 mm[Hg] Priscila Mccormack Other [employer] Other 01-31-2022 16:00-0400 SaO2% (BldA) [Mass fraction] 96 % Priscila Mccormack Other [facility] [employer] Other 01-31-2022 16:00-0400 Systolic blood pressure 123 mm[Hg] Priscila Mccormack Other [facility] [employer] Other 01-29-2022 09:21-0400 Blood Pressure Location Milla Montoya [facility] 01-29-2022 09:21-0400 Diastolic blood pressure 80 mm[Hg] Milla Montoya [facility] 01-29-2022 09:21-0400 Heart rate 90 /min Milla Montoya [facility] 01-29-2022 09:21-0400 SaO2% (BldA) [Mass fraction] 100 % Milla Montoya [facility] 01-29-2022 09:21-0400 Systolic blood pressure 146 mm[Hg] Milla Montoya [facility] 12-11-2021 23:00-0400 Diastolic blood pressure 80 mm[Hg] Reji Dickinson [facility] 12-11-2021 23:00-0400 Heart rate 58 /min Reji Dikcinson [facility] 12-11-2021 23:00-0400 SaO2% (BldA) [Mass fraction] 98 % Reji Dickinson [facility] 12-11-2021 23:00-0400 Systolic blood pressure 148 mm[Hg] Reji Dickinson [facility] 12-11-2021 22:33-0400 Body temperature 98.24 [degF] Reji Dickinson [facility] 12-11-2021 22:33-0400 Diastolic blood pressure 76 mm[Hg] Reji Dickinson [facility] 12-11-2021 22:33-0400 Heart rate 57 /min Reji Dickinson [facility] 12-11-2021 22:33-0400 Respiratory rate 16 /min Reji Dickinson [facility] 12-11-2021 22:33-0400 SaO2% (BldA) [Mass fraction] 97 % Reji Dickinson [facility] 12-11-2021 22:33-0400 Systolic blood pressure 159 mm[Hg] Reji Dickinson [facility] 11-16-2021 09:24-0400 Body height 180.34 cm Rinku Encinas Work Phone: [facility] 250 DO Work Phone: 11-16-2021 09:24-0400 Body mass index (BMI) [Ratio] 35.29 kg/m2 Rinku Encinas Work Phone: [facility] 250 DO Work Phone: 11-16-2021 09:24-0400 Body surface area Derived from formula 2.33 m2 Rinku Encinas Work Phone: [facility] 250 DO Work Phone: 11-16-2021 09:24-0400 Body weight 114.76 kg Rinku Encinas Work Phone: [facility] 250 DO Work Phone: 11-16-2021 09:24-0400 Diastolic blood pressure 84 mm[Hg] Rinku Encinas Work Phone: [facility] 250 DO Work Phone: 11-16-2021 09:24-0400 Heart rate 62 /min Rinku R Encinas Work Phone: [facility] 250 DO Work Phone: 11-16-2021 09:24-0400 Systolic blood pressure 122 mm[Hg] Rinku R Encinas Work Phone: [facility] 250 DO Work Phone: 05-08-2021 13:46-0500 Diastolic blood pressure 84 mm[Hg] Rinku R Encinas Work Phone: [facility] 250 DO Work Phone: 05-08-2021 13:46-0500 Systolic blood pressure 126 mm[Hg] Rinku R Encinas Work Phone: [facility] 250 DO Work Phone: 05-08-2021 13:41-0500 Diastolic blood pressure 93 mm[Hg] Rinku R Encinas Work Phone: [facility] 250 DO Work Phone: 05-08-2021 13:41-0500 Systolic blood pressure 132 mm[Hg] Rinku Larsoners Work Phone: [facility] 250 DO Work Phone: 05-08-2021 13:39-0500 Body height 180.34 cm Rinku Larsoners Work Phone: [facility] 250 DO Work Phone: 05-08-2021 13:39-0500 Body mass index (BMI) [Ratio] 35.01 kg/m2 Rinku R Encinas Work Phone: [facility] 250 DO Work Phone: 05-08-2021 13:39-0500 Body surface area Derived from formula 2.32 m2 Rinku R Encinas Work Phone: [facility] 250 DO Work Phone: 05-08-2021 13:39-0500 Body weight 113.85 kg Rinku Sindy Encinas Work Phone: [facility] 250 DO Work Phone: 05-08-2021 13:39-0500 Diastolic blood pressure 87 mm[Hg] Rinku Sindy Encinas Work Phone: [facility] 250 DO Work Phone: 05-08-2021 13:39-0500 Heart rate 60 /min Rinku R Encinas Work Phone: [facility] 250 DO Work Phone: 05-08-2021 13:39-0500 Systolic blood pressure 136 mm[Hg] Rinku Larsoners Work Phone: [facility] 250 DO Work Phone: Encounters Encounter Date Encounter Type Care Provider Facility Start: 05-24-2023 End: 05-25-2023 ambulatory Izaguirre Talal Sarmini Facility:[facility] Start: 05-24-2023 End: 05-25-2023 ambulatory Izaguirre Talal Sarmini Facility:[facility] Start: 05-24-2023 End: 05-24-2023 Patient encounter procedure Izaguirre Talal Sarmini [facility] Start: 05-24-2023 End: 05-24-2023 Patient encounter procedure Izaguirre Talal Sarmini [facility] Start: 05-14-2023 End: 05-14-2023 ambulatory STEPHANIE RODNEY Not Available Start: 05-09-2023 End: 2023 ambulatory Izaguirre Talal Sarmini Facility:[facility] Start: 05-09-2023 End: 05-09-2023 Patient encounter procedure Izaguirre Talal Sarmini [facility] Start: 05-06-2023 End: 05-06-2023 ambulatory Priscila Mccormack Other [employer] Other Start: 05-06-2023 Telephone encounter Priscila Mccormack [facility] [address] Start: 05-02-2023 End: 05-02-2023 Patient encounter procedure DO Rinku Encinas III Work Phone: [facility] Work Phone: Start: 05-02-2023 End: 05-02-2023 ambulatory DO Rinku R Encinas III Work Phone: [facility] Work Phone: Start: 05-02-2023 Office outpatient vi sit 15 minutes Priscila Mccormack [facility] Start: 03-25-2023 End: 03-25-2023 ambulatory KAYLI PARSON Not Available Start: 03-18-2023 End: 03-19-2023 ambulatory Rinku R Encinas Facility:[facility] Start: 03-18-2023 End: 03-18-2023 Patient encounter procedure Zina Ugalde [facility] Start: 03-06-2023 End: 03-07-2023 ambulatory ANJELICA E MATTHEW Facility: [facility] Start: 03-06-2023 End: 03-06-2023 Patient encounter procedure ANJELICA NATION [facility] Start: 03-05-2023 End: 03-06-2023 ambulatory ANJELICA NATION Facility:[facility] Start: 03-05-2023 End: 03-05-2023 Patient encounter procedure ANJELICA NATION [facility] Start: 02-06-2023 End: 02-07-2023 ambulatory Todd Sindy ANTHONY Facility:[facility] Start: 02-06-2023 End: 02-06-2023 Lab Drop off Todd CRUZ [facility] Start: 02-06-2023 End: 02-06-2023 Patient encounter procedure Todd Sindy ANTHONY [facility] Start: 12-17-2022 Office outpatient vi sit 25 minutes Rinku Encinas Work Phone: [facility] 250 DO Work Phone: Start: 12-17-[address] Rinku Encinas III Facility:[id number] Start: 11-19-2022 ambulatory Zina Ugalde Facili ty:[facility] Start: 10-16-2022 End: 10-17-2022 ambulatory Todd Sindy ANTHONY Facility:[facility] Start: 10-16-2022 End: 10-16-2022 Patient encounter procedure Todd R CRUZ [facility] Start: 10-11-2022 End: 10-12-2022 ambulatory ANJELICA NATION Facility:[facility] Start: 10-11-2022 End: 10-11-2022 Patient encounter procedure ANJELICA NATION [facility] Start: 10-03-2022 End: 10-04-2022 ambulatory ANJELICA NATION Facility:[facility] Start: 10-03-2022 End: 10-03-2022 Lab Drop off ANJELICA NATION [facility] Start: 10-03-2022 End: 10-03-2022 Patient encounter procedure ANJELICA NATION [facility] Robert Start: 09-25-2022 Rx Renewal Rinku harris Work Phone: [facility] 250 DO Work Phone: Start: 07-02-2022 End: 07-03-2022 ambulatory Tulio Quiñonez Kelechicamryn Facility:[facility] Start: 07-02-2022 End: 07-02-2022 Patient encounter procedure Jesús Clement [facility] Start: 06-24-2022 End: 06-25-2022 Emergency department patient visit Josh Obando Facility:[facility] Start: 06-24-2022 End: 06-24-2022 Emergency department patient visit Josh Obando [facility] Start: 06-14-2022 End: 06-14-2022 ambulatory Priscila Mccormack Other [employer] Other Start: 06-14-2022 Telephone encounter Priscila Mccormack [facility] Start: 05-31-[address] Summer Deshpande Facility: Start: 05-31-2022 Office outpatient vi sit 25 minutes Rinku Encinas Work Phone: [facility] 250 DO Work Phone: Start: 05-30-2022 End: 05-31-2022 ambulatory Summer Deshpande Facility:[facility] Start: 05-30-2022 End: 05-30-2022 Patient encounter procedure Summer Deshpande [facility] Start: 02-06-2022 End: 02-06-2022 Patient encounter procedure Todd CRUZ [facility] Start: 01-31-2022 End: 01-31-2022 Patient encounter procedure DO Rinku Encinas III Work Phone: [facility] Start: 01-31-2022 End: 01-31-2022 ambulatory DO Rinku R Encinas III Work Phone: [facility] Work Phone: Start: 01-31-2022 [facility] Start: 01-29-2022 End: 01-29-2022 Patient encounter procedure Milla Montoya [facility] Start: 01-18-2022 End: 01-18-2022 Patient encounter procedure Milla Montoya [facility] Start: 12-11-2021 End: 12-11-2021 Emergency department patient visit Reji Dickinson [facility] Start: 11-16-2021 Office outpatient vi sit 25 minutes Rinku R Encinas Work Phone: [facility] 250 DO Work Phone: Start: 10-25-2021 Rx Renewal Rinku Larsone rs Work Phone: [facility] 250 DO Work Phone: Start: 08-23-2021 End: 08-23-2021 Patient encounter procedure DO Rinku Larsoners III Work Phone: [facility] Start: 05-08-2021 Office outpatient vi sit 25 minutes Rinku R Encinas Work Phone: [facility] 250 DO Work Phone: Procedures Date Procedure Procedure Detail Performing Clinician Start: 05-09-2023 Colonoscopy Zina Ugalde Start: 05-09-2023 Esophagogastroduodenoscopy Zina ferreira Start: 10-16-2022 Cystourethroscopy with dilation of urethral stricture Todd CRUZ Start: 02-15-2022 Endovenous laser ablation of varicose vein Summer Alvarengaim Comment on above: bilateral Start: 06-27-2021 Total [...] Work Phone: Procedure on neck Rinku R Encinas Work Phone: Procedure on prostate Raquelan d Sindy Encinas Work Phone: Sleep studies Reji Dickinson Stented coronary artery (finding) Reji Dickinson Total colonoscopy Rinku Encinas Work Phone: Vascular surgery procedure R atilio Encinas Work Phone: Plan of Treatment Date Care Activity Detail Author Start: 03-12-2024 ambulatory Ambulatory Facility:[facility] Start: 06-25-2023 FUV, Provider: Summer Deshpande, Status: Pen, Time: 9:20 AM FUV, Provider: Summer Deshpande, Status: Pen, Time: 9:20 AM [facility] 250 DO Work Phone: Start: 11-29-2022 FUV, Provider: Summer Deshpande, Status: Pen, Time: 9:10 AM FUV, Provider: Summer Deshpande, Status: Pen, Time: 9:10 AM [facility] 250 DO Work Phone: Start: 05-31-2022 FUV, Provider: Summer Deshpande, Status: Pen, Time: 9:00 AM FUV, Provider: Summer Deshpande, Status: Pen, Time: 9:00 AM [facility] 250 DO Work Phone: Start: 11-16-2021 FUV, Provider: Summer Deshpande, Status: Pen, Time: 9:00 AM FUV, Provider: Summer Deshpande, Status: Pen, Time: 9:00 AM [place] [address] DO Work Phone: Immunizations Immunization Date Immunization Notes Care Provider [facility] 02-19-2023 influenza virus vaccine, unspecified formulation ANJELICA NATION [facility] 02-05-2022 Fluzone High-Dose Quadrivalent 0.7 ML Intramuscular Suspension Prefilled Syringe Rinku Encinas Work Phone: [place] [id number] DO Work Phone: 02-05-2022 influenza virus vaccine, unspecified formulation Wheeler Deshpande [facility] 01-16-2022 SARS-CoV-2 (COVID-19 ) [id number] [employer] [facility] 03-01-2021 Moderna COVID-19 Vaccine 100 MCG/0.5ML Intramuscular Suspension Rinku Encinas Work Phone: [place] [address] DO Work Phone: 02-21-2021 influenza virus vaccine, unspecified formulation Summer Alvarengaim [facility] 02-21-2021 influenza, high dose seasonal, preservative-free Rinku Encinas Work Phone: [place] [address] DO Work Phone: 12-29-2020 tetanus toxoid, redu ivan diphtheria toxoid, and acellular pertussis vaccine, adsorbed Rinku Encinas Work Phone: [place] [address] DO Work Phone: 06-22-2020 Moderna COVID-19 Vaccine 100 MCG/0.5ML Intramuscular Suspension Rinku Encinas Work Phone: [place] [address] DO Work Phone: Comment on above: Reason for Medicatio n: Other (see comment) 05-25-2020 Moderna COVID-19 Vaccine 100 MCG/0.5ML Intramuscular Suspension Rinku Encinas Work Phone: [place] [address] DO Work Phone: Comment on above: Reason for Medicatio n: Other (see comment) 02-08-2020 influenza virus vaccine, unspecified formulation Wheeler Deshpande [facility] 02-08-2020 influenza, high dose seasonal, preservative-free Rinku Sindy LarsonEncinas Work Phone: [place] [address] DO Work Phone: 05-16-2018 pneumococcal conjuga te vaccine, 13 valent Rinku Sindy LarsonEncinas Work Phone: [facility] 05-08-2018 pneumococcal conjuga te vaccine, 13 valent Rinku Sindy LarsonEncinas Work Phone: [place] [address] DO Work Phone: 04-29-2018 influenza virus vaccine, unspecified formulation Rinku Sindy Huang Work Phone: [place] [address] DO Work Phone: 04-28-2018 influenza virus vaccine, unspecified formulation Summer Deshpande [facility] 05-08-2017 pneumococcal polysaccharide vaccine, 23 valent RinkuMimi Larsoners Work Phone: [place] [address] DO Work Phone: 02-27-2017 influenza virus vaccine, unspecified formulation Rinku Sindy Encinas Work Phone: [place] [address] DO Work Phone: 02-16-2017 influenza virus vaccine, unspecified formulation Wheeler Deshpande [facility] 02-16-2017 influenza, seasonal, injectable, preservative free Rinku Encinas Work Phone: [place] [address] DO Work Phone: 05-08-2016 influenza virus vaccine, unspecified formulation Rinku Encians Work Phone: [place] [address] DO Work Phone: 01-30-2016 influenza virus vaccine, unspecified formulation Wheeler Deshpande [facility] 01-30-2016 influenza, seasonal, injectable Rinku Encinas Work Phone: [place] [address] DO Work Phone: 01-30-2016 pneumococcal polysaccharide vaccine, 23 valent Rinku Encinas Work Phone: [facility] 03-29-2015 pneumococcal vaccine , unspecified formulation Rinku Encinas Work Phone: [place] [address] DO Work Phone: 02-27-2015 influenza virus vaccine, unspecified formulation Rinku Encinas Work Phone: [place] [address] DO Work Phone: 02-22-2015 influenza virus vaccine, unspecified formulation Wheeler Deshpande [facility] 04-16-2014 pneumococcal polysaccharide vaccine, 23 valent Reji Dickinson [facility] Comment on above: Early/Late Reason: N ursing Judgment 03-03-2014 influenza virus vaccine, unspecified formulation Rinku Encinas Work Phone: [place] [address] DO Work Phone: 02-16-2014 influenza virus vaccine, unspecified formulation Wheeler Deshpande [facility] 02-16-2014 influenza, seasonal, injectable Rinku R Encinas Work Phone: [place] [address] DO Work Phone: 02-18-2013 influenza virus vaccine, unspecified formulation Wheeler Deshpande [facility] 02-18-2013 influenza, high dose seasonal, preservative-free Rinku R Encinas Work Phone: [place] [address] DO Work Phone: 01-27-2013 influenza virus vaccine, unspecified formulation Rinku R Encinas Work Phone: [place] [address] DO Work Phone: 01-04-2013 zoster vaccine, live Wheeler Deshpande [facility] 12-28-2012 zoster vaccine, live Rinku R Encinas Work Phone: [place] [address] DO Work Phone: NEGATED: Highlighted row has not occurred!02-18-2023 influenza virus vaccine, unspecified formulation ANJELICA MATTHEW [facility] Payers Date Payer Category Payer Private Health Insurance [id number] 2022 Self-pay [id number] 1945 Unknown [id number] 2.16. [id number] 1945 Unknown [id number] 2.16. [id number] 1945 Unknown [id number] [id number] 1946 Unknown [id number] 1946 Unknown [id number] 2.16.8 [id number] 1946 Unknown [id number] 2.16.8 [id number] 1946 Unknown [id number] 2.16.8 [id number] 1946 Unknown [id number] 2.16.8 [id number] 1945 Unknown [id number] 2.16.8 40.1.426668.3.579.2. 1945 Unknown [id number] 2.16.8 40.1.880539.3.579.2. 1945 Unknown [id number] 2.16.8 40.1.091750.3.579.2.727 1945 Unknown [id number] 2.16.8 40.1.930796.3.579.2. 1945 Unknown [id number] 2.16.8 40.1.601677.3.579.2. 1945 Unknown [id number] 2.16.8 40.1.228113.3.579.2. 1945 Unknown [id number] 2.16.8 40.1.312101.3.579.2. 1945 Unknown [id number] 2.16.8 40.1.939077.3.579.2.72 1945 Unknown [id number] 2.16.8 40.1.889001.3.579.2.727 1945 Unknown [id number] 2.16.8 40.1.267090.3.579.2.727 1945 Unknown [id number] 2.16.8 40.1.273462.3.579.2.727 1945 Unknown [id number] 2.16.8 40.1.602193.3.579.2.727 Private Health Insurance [facility] [id number] Unknown [employer] Unknown [id number] 2.16.8 40.1.934693.3.579.2.531 Social History Date Type Detail Facility No alcohol use No alcohol use [facility] 250 DO Work Phone: Comment on above: 1-2 cups of coffee; Start: 1945 Sex Assigned At Male F [facility] Tobacco [facility] Comment on above: Denies. Sex Assigned At Male [facility] Tobacco smoking status No Smokin g Status Entered [facility] Start: 02-07-2022 End: 05-24-2023 Tobacco smoking status Never smoked tobacco (finding) [facility] Tobacco smoking status Never [facility] Medical Equipment Procedure Code Equipment Code Equipment Origin al Text Equipment Identifier Dates KNEE TOTAL ROBOT ARTHROPLASTY Tulio Vaughan DO 06/27/21 Non Biological Knee R {[id number] [id number] FDA Start: 06-27-2021 Unknown Unknown 05/09/23 Non Biological Unknown FDA Start: 05-09-2023 FDA Start: 05-09-2023 Unknown Unknown 05/09/23 Non Biological Unknown FDA Start: 05-09-2023 FDA Start: 05-09-2023 Unknown Unknown 05/09/23 Non Biological Unknown FDA Start: 05-09-2023 FDA Start: 05-09-2023 Functional Status Date Assessment Result Facility 05-24-2023 Functional Status N/A [facility] 05-09-2023 Functional Status N/A [facility] 03-18-2023 Functional Status N/A [facility] 03-06-2023 Functional Status N/A [facility] 10-16-2022 Functional Status N/A [facility] 10-03-2022 Functional Status N/A [facility] 06-24-2022 Functional Status N/A [facility] 01-29-2022 Functional Status No [facility] 12-11-2021 Functional Status N/A [facility] Clinical Notes 04-29-2011 to 2023 Note Date & Type Note Facility 2023 Note [id number] [facility] 05-09-2023 Note Endoscopy Care After Procedure Please [...] Document Re-Released: 10/07/2006 ExitCare? Patient Information ?2009 [employer]. Colonoscopy Care After Surgery Please read the [...] through easily. You (more content not included)... [facility] 05-09-2023 Hospital Discharg e instructions Patient Education 05/09/2023 10:37:16 Endoscopy, Care After Procedure [facility] (CUSTOM) Endoscopy Care After Procedure Please read [...] blood. Document Released: 11/27/2004 Document Re-Released: 10/07/2006 Shareable Social Patient Information mycujoo. 05/09/2023 10:37:12 Siu's Esophagus Siu's Esophagus Siu's [...] drinks. ?Tomatoes and foods made with tomatoes. ?[place] or spicy foods. ?Chocolate and peppermint. Do not drink alcohol. General instructions Take eqev-ifp-rrcloaq and prescription medicines only as told by [...] provider. Document Revised: 07/02/2020 Document Reviewed: 07/02/2020 Ubalo Patient Education 2022 [employer]. 05/09/2023 10:36:59 Esophagitis Esophagitis Esophagitis is inflammation [...] Follow these instructions at home: Medicines Take mufm-krt-bckycnj and prescription medicines only as told by [...] powder, vinegar, hot sauces, and barbecue sauce. ?[place] fruit juices and citrus fruits, such as oranges, mati, and limes. ?Tomato-based foods, such as red sauce, chili, salsa, and pizza with red sauce. ?Fried and fatty foods, such as donuts, kyrgyz fries, potato chips, and high-fat dressings. ?High-fat [...] provider. Document Revised: 10/24/2020 Document Reviewed: 10/24/2020 Ubalo Patient Education 2022 [employer]. 05/09/2023 10:36:53 Gastritis, Adult, Yfao-nh-Mggi Gastritis, Adult Gastritis is irritation and swelling [...] Follow these instructions at home: Medicines Take asaw-bps-fcryrem and prescription medicines only as told by [...] provider. Document Revised: 08/19/2021 Document Reviewed: 08/19/2021 Ubalo Patient Education 2022 [employer]. 05/09/2023 10:36:47 Hiatal Hernia Hiatal Hernia A [...] reduce GERD symptoms. Medicines. These may include: ?Ykzq-cfr-louagew antacids. ?Medicines that make your stomach empty [...] may include: ?Fatty foods, like fried foods. ?[place] fruits, like oranges or lemon. ?Other foods [...] Do not drink alcohol. General instructions Take xxlb-xbf-exhwwon and prescription medicines only as told by [...] provider. Document Revised: 06/12/2022 Document Reviewed: 06/12/2022 Ubalo Patient Education 2022 [employer]. 05/09/2023 10:36:43 Colonoscopy, Care After Surgery Salam [...] hard liquor (44 mL). General instructions Take tvjc-vkf-tixnpov and prescription medicines only as told by [...] provider. Document Revised: 08/03/2020 Document Reviewed: 08/03/2020 Ubalo Patient Education 2022 [employer]. 05/09/2023 10:36:39 Diverticulosis [facility] (CUSTOM) Diverticulosis Many [...] unsweetened, w/added ascorbic acid 1 cup 0.5 [place] 1 cup 0.7 Vegetables Cooked Green beans 1 cup 4.0 Carrots 1/2 cup sliced 2.3 Peas 1 cup 8.8 Potato (baked, with skin) 1 medium potato 3.8 Raw Badger (with peel) 1 cucumber 1.5 Lettuce 1 [...] 8.7 Peanuts 1/2 cup 7.9 Chart from [facility] 2013. SEEK IMMEDIATE MEDICAL CARE IF: You [...] Information adapted from: ExitCare Patient Information 2009 Uevoc. ADOR 2012 [email or web address] network/contents [email or web address]-the -basics 05/09/2023 10:36:37 Hemorrhoids, Lbgw-fj-Ycmx Hemorrhoids Hemorrhoids are swollen veins that may [...] 3 times a day. General instructions Take hqzi-hsi-wsaeicy and prescription medicines only as told by [...] provider. Document Revised: 10/25/2021 Document Reviewed: 10/25/2021 Ubalo Patient Education 2022 [employer]. Follow Up Care 03/18/2023 11:12:58 With:Tram DOUGLASS, JESSE Wahl, MED Address: [address], [address] [address]- [phone] When: Unknown Comments:Call for any problems. Office to call for follow up appointment. [facility] 05-02-2023 Evaluation note Encounter Date Diagnosis [...] prescription. A prescription was sent to the [facility] for new supplies throughout the year, as [...] in a timely fashion. Do not smoke. [facility] Other 11-08-2023 Hospital Discharge instructions Patient Education [...] treatment? Where to find more information The [employer] [employer]: www.cancer.org [employer] [employer]: www.auanet.org Contact a health care [...] provider. Document Revised: 10/09/2021 Document Reviewed: 10/09/2021 Ubalo Patient Education 2022 [employer]. Follow Up Care 02/07/2022 09:23:28 With:ANJELICA NATION PA-C, URL Address: [address] [place] [address] [phone] When: Unknown Comments:1 yr w/ PSA [facility] 10-09-2023 Note From: Jane Li I To: [facility] - Administrative; Sent: 11/26/2022 15:31:32 EDT Show up: 01/27/2023 15:31:00 EDT Subject: Colonoscopy Recall Reminder/Recall Please call and schedule in office with Dr. Ugalde/Kera for a surveillance colonoscopy. Patient scheduled for 02/19/[address] Ugalde.[facility] 10-16-2022 Evaluation + Plan noteExtracted from: Title:EU [...] Date:02/13/2023 08:30:00 AM Scheduled Provider:Todd CRUZ MD Location:[facility] Appointment Type:URO Office Visit Diagnostic Tests Pending * UroVysion Fish and Urine Cyto ([facility]) 10/16/22 [facility]06-20-2023 Note [id number] 10-16-2022 Hospital Discharge instructions Patient Education [...] With:Todd CRUZ Address: [facility] [address] [place] [phone]- Business (1) When: Unknown Comments:Keep scheduled appointment [facility]06-20-2023 NoteCustom Cystoscopy ? Voiding after the [...] if you have a fever over 100 degrees.[facility] 10-03-2022 Hospital Discharge instructions Patient Education [...] Follow these instructions at home: Medicines Take lnea-mkc-xgkshgq and prescription medicines only as told by [...] or the blood stops without treatment. Take ylzm-wna-idqjqqq and prescription medicines only as told by your health care provider. Drink enough fluid to keep your urine pale yellow. This information is not intended to replace advice given to you by your health care provider. Make sure you discuss any questions you have with your health care provider. Document Revised: 12/14/2020 Document Reviewed: 12/14/2020 Ubalo Patient Education 2022 [employer]. Follow Up Care 09/06/2022 09:26:45 With:ANJELICA NATION PA-C, URL Address: [address] [place] [place] [address] When: Unknown [facility] 02-27-2023 Hospital Discharge instructions Patient Education 06/24/2022 [...] 11/27/2004 Document Revised: 03/28/2018 Document Reviewed: 03/06/2018 Ubalo Patient Education 2020 [employer]. Follow Up Care 06/24/2022 21:38:40 With:Tulio Vaughan Address: [address] [place] [address] Business (1) When:06/27/2022 With:Rinku Encinas Address: [address] [place] [address] Business (1) When:Within 3 Day(s) [facility]10-05-2022 Evaluation note* Encounter Date Diagnosis Assessment Notes Treatment Notes Treatment Clinical Notes Jan, Obstructive sleep apnea (ICD-10 - G47.33) Fortunately patient is using and benefiting from treatment. Download was reviewed with patient. His AHI is elevated at 11.7. We will go ahead and increase his pressure settings to 15/8 to eliminate some breakthrough apneas, an order was sent to the [facility] to have these completed. A prescription was also sent to the [facility] for new supplies throughout the year, as [...] of weight loss on KATHY were reviewed. [facility] Other 08-16-2022 Hospital Discharge instructions Patient Education [...] ?Using an electrical current produced by radio Jiongji App to close off the vein (radiofrequency vein ablation). ?Removing the vein through small incisions made over the vein (phlebectomy). ?Tying the vein and removing it through incisions made over the vein (vein ligation and stripping). ?Piercing the veins using minimally invasive surgery (subfascial endoscopic radio installer vein surgery). This method may be used in advanced cases. Follow these instructions at home: Medicines Take and use jecu-vjy-cfazloc and prescription medicines and creams only as [...] 09/01/2009 Document Revised: 10/27/2018 Document Reviewed: 10/27/2018 Ubalo Patient Education [employer]. Follow Up Care 12/11/2021 22:19:17 With:Milla Montoya Address: [address] [place] [phone] Business (1) When:12/14/2021 Comments:Call this vascular surgeon to discuss potential therapies for her varicose veins should they continue to become symptomatic. With:Rinku Encinas Address: [address] [facility] [place] [address] Business (1) When:12/14/2021 Comments:Call the office of [...] to the area. Return with further bleeding. [facility]01-01-2012 History general Narrative - Reported* Type Description Date Medical History Hypertension Medical History BPH Medical History severe KATHY Medical History CAD, one stent Medical History prostate cancer 2011 Surgical History Cardiac Stent Placement 04/2011 Surgical History Seed Implant 06/2011 Surgical History Sebaceous Cyst Excised 2008 Hospitalization History see surgical hx [facility] Other Evaluation + Plan note Future Appointments Appointment Date:02/07/2022 08:30:00 AM Scheduled Provider:Todd CRUZ MD Location:[facility] [place] Appointment Type:URO [facility] Future Appointments Appointment Date:01/29/2022 09:15:00 AM Scheduled Provider:Milla Montoya MD [facility] Appointment Type:Vascular Follow Up (FT) Appointment Date:02/07/2022 08:30:00 AM Scheduled Provider:Todd CRUZ MD Location:[facility] [place] Appointment Type:URO [facility] Future Appointments Appointment Date:02/13/2023 08:30:00 AM Scheduled Provider:Todd CRUZ MD [facility] Future Appointments Appointment Date:02/13/2023 08:30:00 AM Scheduled Provider:Todd CRUZ MD Location:[facility] [place] Appointment Type:URO Office Visit Future Scheduled Tests Radiology* CT Abdomen/Pelvis w/o Contrast 10/03/22 [facility] evaluation + Plan note Future Appointments Appointment Date:02/13/2023 08:30:00 AM Scheduled Provider:Todd CRUZ MD Location:[facility] [place] Appointment Type:URO Office Visit Diagnostic Tests Pending * Urine Culture 10/03/22 Future Scheduled Tests Radiology* CT Abdomen/Pelvis w/o Contrast 10/03/22 [facility] Future Appointments Appointment Date:10/16/2022 08:30:00 AM Scheduled Provider: Location:[facility] Appointment Type:Urology FT Appointment Date:02/13/2023 08:30:00 AM Scheduled Provider:Todd CRUZ MD Location:[facility] [place] Appointment Type:URO [facility] Future Appointments Appointment Date:02/13/2023 08:30:00 AM Scheduled Provider:Todd CRUZ MD Location:[facility] Appointment Type:URO Office Visit Appointment Date:02/19/2023 03:00:00 PM Scheduled Provider:Zina Ugalde MD Location:[facility] Appointment Type:[facility] New Patient [facility] Evaluation + Plan note Future Appointments Appointment Date:02/13/2023 08:30:00 AM Scheduled Provider:Todd CRUZ MD Location:[facility] Appointment Type:URO Office Visit Appointment Date:02/19/2023 03:00:00 PM Scheduled Provider:Zina Ugalde MD Location:[facility] Appointment Type:[facility] New Patient Diagnostic Tests Pending * UroVysion Fish and Urine Cyto ([facility]) 02/06/23 [facility] Future Appointments Appointment Date:03/06/2023 03:00:00 PM Scheduled Provider:ANJELICA NATION PA-C Location:[facility] Appointment Type:URO Office Visit Appointment Date:03/18/2023 10:15:00 AM Scheduled Provider:Zina Ugalde MD Location:[facility] Appointment Type:[facility] New Patient [facility] Future Appointments Appointment Date:03/18/2023 10:15:00 AM Scheduled Provider:Zina Ugalde MD Location:[facility] Appointment Type:BAD New Patient Appointment Date:03/12/2024 08:30:00 AM Scheduled Provider:ANJELICA NATION PA-C Location:[facility] Appointment Type:URO Office Visit Future Scheduled Tests Laboratory* PSA Total 03/06/24 [facility] Evaluation + Plan note Future Appointments Appointment Date:05/09/2023 10:00:00 AM Scheduled Provider: Location:[facility] Surgical Services Appointment Type:Surgery FT Appointment Date:03/12/2024 08:30:00 AM Scheduled Provider:ANJELICA NATION PA-C Location:[facility] Appointment Type:URO Office Visit Future Scheduled Tests Laboratory* PSA Total 03/06/24 * CBC w/ Auto Diff 03/18/23 * Comprehensive Metabolic Panel 03/18/23 [facility] Evaluation + Plan note Future Appointments Appointment Date:03/12/2024 08:30:00 AM Scheduled Provider:ANJELICA NATION PA-C Location:[facility] Appointment Type:URO Office Visit Future Scheduled Tests Laboratory* PSA Total 03/06/24 * CBC w/ Auto Diff 03/18/23 * Comprehensive Metabolic Panel 03/18/23 [facility] Future Appointments Appointment Date:03/12/2024 08:30:00 AM Scheduled Provider:ANJELICA NATION PA-C Location:[facility] Appointment Type:URO Office Visit Future Scheduled Tests Laboratory* PSA Total 03/06/24 [facility] Evaluation noteNo assessment information available [facility] Work Phone: Evaluedwyw noteNo InformationNortHoly [facility] Other Hospital course Narrative No data available for this section [facility] No data available for this section [facility] No data available for this section [facility] Chief Complaint * ESTRADA PFEIFFER is [...] several months ago by vascular surgery at [facility]. Lipid profile from recent testing was [...] he had venous stripping last year at [facility] * 6. Sleep apnea on CPAP machine with compliance. * Summer Deshpande MD, [facility] * ESTRADA PFEIFFER is being seen for [...] he had venous stripping last year at [facility] * 6. Sleep apnea on CPAP machine [...] Team Status: Active Member Role Status Dates RinkuMimi Encinas III , DO Primary Care Provider [...] section and content) DATE CREATED AUTHOR 12/18/2022 [facility] DATE CREATED AUTHOR AUTHOR'S ORGANIZ ATION 12/18/2022 [employer] DATE CREATED AUTHOR AUTHOR'S ORGANIZ ATION 05/15/2023 [facility] DATE CREATED AUTHOR AUTHOR'S ORGANIZ ATION 05/26/2023 [facility] DATE CREATED AUTHOR AUTHOR'S ORGANIZ ATION 06/07/2023 [facility] FOR RECORDS PERTAINING TO PATIENTS WHO [...] BE BASED ON THE PRIMARY CLINICAL RECORDS. [employer] provides no warranty or guarantee of the accuracy or completeness of information in this document.
== END 2023-06-19 09:07 | disposition home or self-care (01) ==
LOC: VC 09:06
PROVIDERS: Family Provider Family Medicine; PCP Radiology Diagnostic Radiology; Visit Provider Radiology Diagnostic Radiology
DX: I83.813 Varicose veins of bilateral lower extremities with pain (principal)
CPT/HCPCS: 36478

== ENCOUNTER 2023-07-03 09:23 | Outpatient (OUT) | payer MEDICARE, SELFPAY ==
--- NOTE | 2023-07-03 09:24 | VEIN_ITS ---
Patient Name: ESTRADA PFEIFFER MR#: [id number] : 1945 Exam Date: 07/03/2023 Ordering Doctor: DR TULIO ROONEY M.D. RADIOLOGY REPORT PROCEDURE: VC EXT VENOUS LT LIMITED COMPARISON: VC EXT VENOUS LT LIMITED, 06/05/2023. VC EXT VENOUS LT LIMITED, 05/08/2023. INDICATIONS: I80.02 Phlebitis of superficial veins of lt lower extremity TECHNIQUE: Lower extremity garrido scale and Duplex Doppler evaluation of the deep venous system from the inguinal ligament through the calf veins. FINDINGS: REGION: Left lower extremity. THROMBI: Negative for DVT. Heat induced thrombus of multiple perforators in medial lower left leg. 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 COMPRESSIBILITY: Non-compressible segments corresponding to thrombus FLOW: Areas of no flow corresponding to thrombus OTHER: Multiple small varicose veins remain in distal lower left leg. CONCLUSION: Post ablation occlusion of treated left leg varicose veins. Residual incompetent varicose veins remain measuring up to 5.2 mm. Dictated by: Tulio Rooney MD on 07/03/2023 at 09:50 Approved by: Tluio Rooney MD on 07/03/2023 at 09:51
--- NOTE | 2023-07-03 09:24 | VEIN_ITS ---
Patient Name: ESTRADA PFEIFFER MR#: [id number] : 1945 Exam Date: 07/03/2023 Ordering Doctor: DR TULIO ROONEY M.D. RADIOLOGY REPORT PROCEDURE: FACILITY EST LMTD [facility] - OFFICE VISIT FOLLOW UP COMPARISON: [facility] EST LMTD, 06/05/2023. [facility] EST LMTD, 05/08/2023. PROGRESS NOTES: The patient reports no significant problems following micro foam chemical ablation of left leg incompetent varicose veins. The patient did not require oral analgesics. The patient has worn her compression stockings. The patient does report new pain along the plantar left foot. Physical exam demonstrates multiple thrombosed bilateral varicose veins. Significant improvement in subcutaneous edema and skin thickening from his initial presenting exam. No erythema or warmth to suggest cellulitis or thrombophlebitis. No active ulceration Review of the ultrasound performed the same day demonstrates occlusive thrombus extending throughout the treated left leg varicose veins. Incompetent varicose veins remain measuring up to 5.2 mm in diameter. The patient expressed a desire to proceed with treatment of incompetent left leg varicose veins with micro foam chemical ablation. VEIN/[facility] EST LMTD IMPRESSION: 1. Successful ablation of treated incompetent left leg varicose veins 2. Persistent incompetent left leg varicose veins. PLAN: Micro foam chemical ablation left leg incompetent varicose veins Nurse notes, history and physical were reviewed and confirmed, see attached forms. The nurse was present throughout the physical exam and consultation Dictated by: Tulio Rooney MD on 07/03/2023 at 10:02 Approved by: Tulio Rooney MD on 07/03/2023 at 10:06
--- OUTSIDE RECORDS SUMMARY | 2023-07-03 09:39 | XMS_ITS | CCD ---
Author Name Unknown Address [address] [address] [place] [address] Organization [facility] Care Team Providers Care Chemistry Laboratory Technician Name Role Phone Haven Encinas Unavailable Unavailable Unavailable DO Haven Encinas III Primary Care Provider MD Tulio Hinojosa Attending Provider [phone] Haven Encinas III Primary Care Physician Asuncion Gonzales Unavailable Unavailable DO Haven Encinas III Primary Care Provider RENEE Mccormack Priscila Attending Provider Tisha Mccormackgy Unavailable Unavailable Unavailable Dr. Haven Encinas III Primary Care Helena Deshpande, Dr. Summer Douglas Referring Linda lincoln Deshpande, Dr. Summer Douglas Attending Linda lincoln Deshpande, Dr. Summer Douglas Attending Linda Dr. Haven Dominguez III Primary Care Helena Deshpande, Dr. Summer Douglas Referring Linda vaDO Haven Monterroso III Primary Care Provider RENEE Mccormack Priscila Attending Provider Zina Ugalde Attending Unavaila ble Haven Encinas Referring Unavailable Zina Ugalde Attending Unavaila ble ANJELICA NATION Attending Unavailable ANJELICA NATION Attending Unavailable ANJELICA NATION Attending Unavailable ANJELICA NATION Admitting Unavailable MATTHEW, ANJELICA Meza Attending Unavailable CRUZ, Todd R Admitting Unavailable CRUZ, Todd R Attending Unavailable Sarmini, Znia Gallardo Admitting Unavaila ble Sarmini, Zina Gallardo Attending Unavaila ble Deshpande, Summer Admitting Unavailable Deshpande, Wheeler Attending Unavailable TopherJosh chambers Attending Unavailable Sarmini, Zina Talal Admitting Unavaila ble Sarmini, Zina Gallardo Attending Unavaila ble Sarmini, Zina Ashtonal Referring Unavaila ble CRUZ, Todd R Admitting Unavailable CRUZ, Todd R Attending Unavailable CRUZ, Todd R Referring Unavailable Pocos, Tulio Quiñonez Admitting Unavailable Pocos, Tulio Quiñonez Attending Unavailable Pocos, Tulio Quiñonez Referring Unavailable MATTHEW, ANJELICA E Referring Unavailable MATTHEW, ANJELICA E Admitting Unavailable MATTHEW, ANJELICA Meza Attending Unavailable MATTHEW, ANJELICA E Admitting Unavailable MATTHEW, ANJELICA Meza Attending Unavailable CRUZ, Todd Callahan Attending Unavailable DOLCE, STEPHANIE Hernandez Attending Unavailable DOLCE, STEPHANIE Hernandez Referring Unavailable FELTERJESUS Attending Unavailable ENCINAS, HAVEN Referring Unavailable KAYLI PARSON Attending Unavailable Mccormack, Priscila Attending Unavailable Mccormack, Priscila Admitting Unavailable Encinas III, Haven R Primary Care Unavailabl e Allergies Allergy Classification Reported Allergen(s) Allergy Type Date of Onset Reaction(s) Facility (7 sources) Iodine; Translations: [Iodine SOLN] Drug Allergy Itching, Rash [place] [address] DO Work Phone: (20 sources) Penicillins; Translations: [Penicillins] Allergy to drug (finding) Unknown (qualifier value) [place] [address] DO Work Phone: (12 sources) shellfish, unspecified; Translations: [shellfish] Allergy to substance (finding) Difficulty breathing (finding) [facility] (20 sources) Sulfonamides (Antibiotic); Translations: [Sulfa Drugs] Allergy to drug (finding) Discoloration of skin (finding) [place] [address] DO Work Phone: (19 sources) Calcium Carbonate; Translations: [calcium carbonate] Drug Allergy Swelling, Hives [facility] Comment on above: calcium sulfate (20 sources) Iodine; Translations: [iodine] Drug Allergy Hives, Swelling [facility] (16 sources) Shellfish; Translations: [shellfish] Drug allergy Difficulty breathing (finding) [facility] (19 sources) Fish 1 Propensity to adverse reactions to substance Difficulty breathing (finding) [facility] Comment on above: trout (4 sources) Penicillin Drug Allergy swelling [facility] [employer] Other (4 sources) Sulfonamides (Antibiotic) Propensity to adverse reactions rash [facility] [employer] Other (1 source) Calcium; Translations: [Calcium] Drug Allergy [facility] Repository (1 source) Fish - dietary; Translations: [Fish] Propensity to adverse reactions (disorder) [facility] Repository (1 source) Penicillins Drug allergy (disorder) 05-02-19 [facility] Repository (1 source) Sulfonamides (Antibiotic) Drug allergy (disorder) 05-02-19 [facility] Repository Medications Current Medications Medication Drug [...] constipation, # 40 cap(s), Refills(s) 0, Pharmacy: [facility], 180, cm, 06/06/21 15:55:00 EST, Height/Length Dosing, 113.6, kg, 06/06/21 15:55:00 EST, Weight Dosing Start Date: 06/27/21 Status: Ordered finasteride 5 mg oral tablet (20 sources) 5-alpha Reductase Inhibitor Start: 05-22-2023 End: 06-21-2023 take 1 tablet by mouth once daily finasteride 5 mg Tab 5 mg = 1 tab(s), Oral, Daily, # 90 tab(s), Refills(s) 3, Pharmacy: [facility], 180, cm, 05/09/23 9:28:00 EST, Height/Length Dosing, 112, kg, 05/09/23 9:28:00 EST, Weight Dosing Start Date: 05/22/23 Status: Ordered Start: 05-18-2020 take 1 tablet by dedrick once daily finasteride 5 mg Tab 5 mg = 1 tab(s), Oral, Daily, # 90 tab(s), Refills(s) 3, Pharmacy: [facility], 180, cm, 10/16/22 8:31:00 EDT, [...] Jeramy DOUGLASS, Summer Active Nitroglycerin Ac tive omeprazole 40 mg delayed release oral capsule (3 sources) Proton Pump Inhibitor Start: 05-09-2023 End: 01-28-2025 take 1 capsule by mouth twice daily omeprazole 40 mg Cap-DR 40 mg = 1 cap(s), Oral, BID, X 90 day(s), # 180 cap(s), Refills(s) 6, Pharmacy: [facility], 180, cm, 05/09/23 9:28:00 EST, Height/Length [...] 7days, # 40 tab(s), Refills(s) 0, Pharmacy: [facility], 180, cm, 06/06/21 15:55:00 EST, Height/Length [...] completed, # 2 tab(s), Refills(s) 0, Pharmacy: [facility], 180, cm, 10/03/22 13:53:00 EDT, Height/Length [...] [Coronary atherosclerosis of unspecified type of vessel, soboba or graft] 06-27-2021 Chronic Coronary atherosclerosis and [...] Translations: [Obstructive sleep apnea (adult) (pediatric)] Onset: 05-02-2023 Chronic Residual codes; unclassified (19 sources) H/O: [...] DOUGLASS, Zina Gallardo Primary Care Physician - Haven Encinas III, DO This Is Your Medications [...] [facility] CBC w/ Auto Diffon 4 Basophil Absolute 0.1 E9/L Normal 0.0-0.2 [facility] Comment on above: Performed By: #### 2 848482, 4198503, [id number] ####[facility] [address] [place] [address] Basophils/100 WBC (Bld) 1.0 % Normal 0.0-2.0 [facility] Comment on above: Performed By: #### 2 018894, 2185466, 81309066 ####[facility] [address] [place] [address] Eos Absolute 0.2 E9/L Normal 0.0-0.5 [facility] Comment on above: Performed By: #### 2 375277, 2904296, [id number] ####[address] [address] Eosinophils/100 WBC (Bld) 2.7 % Normal 0.0-8.0 [facility] Comment on above: Performed By: #### 2 961063, 5749135, 62536542 ####[facility] [address] [place] [address] Erythrocyte distribution width (RBC) [Ratio] 13.7 % Normal 10.9-14.2 [facility] Comment on above: Performed By: #### 2 891010, 0636336, 47256147 ####[facility] [address] [place] [address] Hematocrit (Bld) [Volume fraction] 40.0 % Normal 37.7-49.0 [facility] Comment on above: Performed By: #### 2 125550, 0984331, 66846938 ####[facility] [address] [place] [address] Hemoglobin (Bld) [Mass/Vol] 13.2 g/dL Low 13.5-17.5 [facility] Comment on above: Performed By: #### 2 933501, 3542163, 27795885 ####[facility] [address] [place] [address] Lymph Absolute 2.0 E9/L Normal 1.0-4.0 [facility] Comment on above: Performed By: #### 2 629076, 1458284, 35926104 ####[address] [address] Lymphocytes/100 WBC (Bld) 35.0 % Normal 14.0-50.0 [facility] Comment on above: Performed By: #### 2 269758, 7248889, 28687033 ####[address] [address] MCH (RBC) [Entitic mass] 29.1 pg Normal 27.0-34.0 [facility] Comment on above: Performed By: #### 2 724756, 2128691, 53501456 ####[address] [address] MCHC (RBC) [Mass/Vol] 33.0 g/dL Normal 31.4-36.0 [facility] Comment on above: Performed By: #### 2 083818, 6484487, 03775558 ####[address] [address] MCV (RBC) [Entitic vol] 88.3 fL Normal 80.0-100.0 [facility] Comment on above: Performed By: #### 2 966113, 8788933, 73313825 ####[address] [address] [place] Absolute 0.6 E9/L Normal 0.2-1.0 [facility] Comment on above: Performed By: #### 2 133752, 5894639, 60390537 ####[address] [address] Monocytes/100 WBC (Bld) 10.1 % Normal 4.0-14.0 [facility] Comment on above: Performed By: #### 2 932389, 6011515, 65927557 ####[facility] [address] [place] [address] Neutro Absolute 2.9 E9/L Normal 2.0-7.5 [facility] Comment on above: Performed By: #### 2 114083, 6876884, 33093286 ####[address] [address] Neutro Auto 51.2 % Normal 36.0-75.0 [facility] Comment on above: Performed By: #### 2 710574, 4783677, 07590310 ####[address] [address] Platelet 125.0 E9/L Low 150.0-500.0 [facility] Comment on above: Performed By: #### 2 349709, 9190959, 29003302 ####[address] [address] Platelet mean volume (Bld) [Entitic vol] 10.4 fL Normal 6.4-10.8 [facility] Comment on above: Performed By: #### 2 273364, 4756257, 22948598 ####[address] [address] RBC 4.5 E12/L Normal 4.3-5.9 [facility] Comment on above: Performed By: #### 2 313358, 8794346, 11296443 ####[facility] [address] [place] [address] WBC 5.7 E9/L Normal 4.0-11.0 [facility] Comment on above: Performed By: #### 2 907923, 6084645, 41693844 ####[address] [address] CHEMISTRYOrdered By: SYSTEM SYSTEM on 05-24-2023 Albumin [...] [Mass/Vol] 4.2 g/dL Normal 3.3-5.0 [facility] Comment on above: Performed By: #### 2 043129, 1319441, 11947847 ####[place] [address] [place] [address] Albumin/Globulin [Mass ratio] 1.5 {ratio} Normal 1.1-2.2 [facility] Comment on above: Performed By: #### 2 322526, 1303826, 08057904 ####[address] [address] Alk Phos 66 Int._Unit/L Normal 21-98 [facility] Comment on above: Performed By: #### 2 770261, 9247249, 73241847 ####[address] [address] ALT 11 Int._Unit/L Normal 6-46 [facility] Comment on above: Performed By: #### 2 036308, 9193054, 55431579 ####[address] [address] Anion gap [Moles/Vol] 12 mmol/L Normal 6-16 [facility] Comment on above: Performed By: #### 2 449994, 6071740, 43750168 ####[address] [address] AST 16 Int._Unit/L Normal 5-43 [facility] Comment on above: Performed By: #### 2 068941, 6521882, 56180949 ####[address] [address] Bili Total 0.8 mg/dL Normal 0.0-1.1 [facility] Comment on above: Performed By: #### 2 462335, 9984533, 40684070 ####[address] [address] BUN/Creat Ratio 20 No Units Normal 10-20 [facility] Comment on above: Performed By: #### 2 324868, 6283417, 93963589 ####[address] [place] [address] Calcium [Mass/Vol] 9.2 mg/dL Normal 8.9-11.1 [facility] Comment on above: Performed By: #### 2 570432, 8425991, 15107052 ####[facility] [address] [place] [address] Chloride [Moles/Vol] 106 mmol/L Normal 101-111 [facility] Comment on above: Performed By: #### 2 227509, 5693859, 77736752 ####[facility] [address] [place] [address] CO2 [Moles/Vol] 25 mmol/L Normal 21-31 [facility] Comment on above: Performed By: #### 2 784036, 4425305, 89806083 ####[address] [address] Creatinine [Mass/Vol] 0.9 mg/dL Normal 0.5-1.3 [facility] Comment on above: Performed By: #### 2 154748, 5928286, 97536284 ####[facility] [address] [place] [address] Globulin (S) [Mass/Vol] 2.8 g/dL Normal 1.4-4.0 [facility] Comment on above: Performed By: #### 2 926514, 6458567, 01086398 ####[facility] [address] [place] [address] Glucose [Mass/Vol] 84 mg/dL Normal 55-199 [facility] Comment on above: Performed By: #### 2 009384, 8601257, 39021948 ####[facility] [address] [place] [address] Potassium [Moles/Vol] 4.3 mmol/L Normal 3.5-5.3 [facility] Comment on above: Performed By: #### 2 594183, 9806163, 45384494 ####[facility] [address] [place] [address] Protein [Mass/Vol] 7.0 g/dL Normal 6.0-7.8 [facility] Comment on above: Performed By: #### 2 337184, 6184008, 85358225 ####[facility] [address] [place] [address] Sodium [Moles/Vol] 139 mmol/L Normal 135-145 [facility] Comment on above: Performed By: #### 2 762200, 4855596, 36567083 ####[facility] [address] [place] [address] Urea nitrogen [Mass/Vol] 18 mg/dL Normal 5-21 [facility] Comment on above: Performed By: #### 2 495171, 6778840, 97031355 ####[facility] [address] [place] [address] Consent for Treatmenton 04-30 Consent for Treatment [id number]#1.00TIFF Normal [facility] Gastroenterology Office/Clin ic Noteon [...] cm, GE junction at 34 cm 2. 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 Normal [facility] Comment on above: Result [...] Normal 80.0 - 100.0 fL Remisol Heme [place] Absolute 0.6 E9/L Normal 0.2 - 1.0 [...] Reminders - From: Sonya Ricks To: [facility] - Reminders/Recalls; Sent: 05/24/2023 13:48:57 EST Show up: 03/29/2026 13:48:00 EST Subject: Ambulatory Reminder Due Date/Time: 04/29/2026 13:48:00 EST Reminder/Recall Entered by Sonya Ricks on May 24, 2023 13:47:46 EST 05/09/2026 3 year colon recall From: Tram DOUGLASS, Znia Gallardo To: Sonya Ricks; Sent: 05/24/2023 13:36:04 EST Subject: General Message Caller Name: ESTRADA PFEIFFER; Caller Number: H , M 3 years plz Normal [facility] eGFRon 05-24-2023 eGFR 88 mL/min/1.73 m2 Normal >=59 [facility] Comment on above: Order Comment: Order added by Discern Expert. Performed By: #### 2 576669, 9455053, 04352095 ####[facility] [address] [place] [address] Provider Letteron 05-20-2023 Provider Letter (Inserted Image. Linda ble to display) May 20, 2023 ESTRADA PFEIFFER [address] [place] [address] : 1945 Dear Estrada , We have been trying to reach you with no success. It is important that you return our call regarding scheduling a follow up appointment from procedure dated 05-09-23 upon receiving this letter. Also, at the time of your call, please provide us with your current information. Thank you for your prompt attention to this matter. Sincerely, [facility] [phone] Normal [facility] Pathology Reporton Pathology Report [id number]#1.00TIFF Normal [facility] Postoperative Documentson Postoperative Documents [id number]#1.00TIFF Normal [facility] IntraOperative Documentson 0 05-13-2023 IntraOperative Documents [id number]#1.00TIFF Alexandre Lott [facility] Progress Note-Physicianon Progress Note-Physician Patient: ESTRADA [...] All Problems Urge incontinence / SNOMED CT 126504756 / Confirmed Post-void dribbling / SNOMED CT 628597617 / Confirmed Osteoarthritis / SNOMED CT 7214282790 / Confirmed Obstructive sleep apnea / SNOMED CT 973228052 / Confirmed uses CPAP Obesity 29-OCT-2013 12:37:00<$> / SNOMED CT [id number] 468J7H2Q / Confirmed Nocturia / SNOMED CT 986430750 / Confirmed Frequent urination / SNOMED CT 162888627 / Confirmed History of colon polyps / SNOMED CT 7963622803 / Confirmed Personal history of prostate cancer / SNOMED CT 9455967075 / Confirmed Bloody stools / SNOMED CT 0258414421 / Confirmed Hx of longterm use of blood thinners / SNOMED CT 825190278 / Confirmed Gross hematuria / SNOMED CT 606008011 / Confirmed CAD (coronary artery disease) / SNOMED CT 53452062 / Confirmed BMI 34.0-34.9,adult / SNOMED CT 110357235 / Confirmed BPH with urinary obstruction / SNOMED 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 Resolved due to patient discharge. Resolved: Prostate cancer / ICD-9-CM 185 Resolved: HTN (hypertension) / ICD-9-CM 401.9 Resolved: Coronary artery disease / ICD-9-CM 414.00 Histories Procedure history: Cystourethroscopy with dilation of urethral stricture (849091770) on 10/16/2022 at 77 Years. Endovenous laser ablation of varicose vein (7001849662) on 02/15/2022 at 76 Years. Comments: 02/15/2022 11:20 EDT - Ravin TAPIA, Gareth A bilateral Total knee replacement (9012806844) on 06/27/2021 at 76 Years. Cysto (35271260) on 06/11/2017 at 72 Years. Comments: 11/18/2018 9:29 Mery Burk 12/02/07, 05/1013, 05/1317 left total knee arthroplasty on 04/13/2016 at 70 Years. left shoulder arthroscopy with extensive glenohumeral debridement, subacromial decompression, partial distal clavicectomy, mini-open rotator cuff repair on 02/23/2014 at 68 Years. Brachytherapy (846971949) on 07/12/2011 at 66 Years. Evolve Laser of Prostate (582137948) on 08/12/2007 at 62 Years. Urodynamics (388067373) on 07/15/2007 at 62 Years. TRUS w/Bx (1634142846) on 05/24/2000 at 55 Years. Comments: 11/18/2018 9:32 Mery Burk 01/23/11 Stented coronary artery ([id number]). Cancer of prostate (3826038402). Comments: 02/23/2014 12:37 EDT - Hayden TAPIA, Trinidad radiation seed implant Sleep studies (036634675). Hernia (3237317211). Social History Social & Psychosocial Habits Alcohol [...] adequate air exchange. Cardiovascular: Regular rhythm. Plan [employer] [place] [employer]hesi[employer] (ASA) physical status classification: Class III. Anesthetic Preoperative Plan: Anesthesia General. [facility] Comment on above: Result Comment: Elec [...] when meets criteria ( To home ). [facility] Comment on above: Result Comment: Elec tronically Signed By: Tico Huston Jr, DO\.br\Date and Time Signed: 05/13/23 11:25 EST Consenton 2023 Consent [id number]#1.00TIFF [facility] Discharge Instructionson Discharge Instructions [id number]#1.00TIFF [facility] Main OR Intraoperative Recor don 2023 Main OR Intraoperative Record IntraOp Document Type FT Summary Primary Physician: Zina Ugalde MD Finalized Date/Time: 05/10/23 09:38:29 Pt. Name: ESTRADA PFEIFFER/Sex: 1945 Male Med Rec #: [id number] Physician: Zina Ugalde MD Financial #: [id number] Pt. 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 Scrub - Primary Time [...] By: Hernan RN, Jessica Becerra RN, Jessica Chávez 05/09/23 10:30:59 F 05/09/23 10:30:59 Perioperative Protocols [...] PreOp Antibiotic No Time Out Jessica Becerra RN F, Nikhil Crisostomo CRNA, Stephani Fitzgerald, Alex SECOND OPERATOR, Nimisha Ivory, Tram DOUGLASS, Zina Gallardo Time [...] diverticulosis, ascending colon polyp Last Modified By: Hernan TAPIA, Jessica Chávez 05/09/23 10:17:23 Post-Care Text: The patient is free from signs and symptoms of infection Skin Assessment (Pre Procedure) FT Pre-Care Text: Implements protective measures to prevent skin/ tissue injury due to thermal or mechanical sources Evaluates for signs and symptoms of physical injury to skin and tissue Entry 1 Skin Integrity Intact, [place], Warm, and Skin Abnormality No Dry Outcomes Met? Yes Last Modified By (more content not included)... Normal [facility] Consent for Treatmenton 04-29 Consent for Treatment [id number]#1.00TIFF Normal [facility] Discharge Instructionson Discharge Instructions ESTRADA PFEIFFER Khang :1945 Visit Date:05/09/2023 Inpatient Discharge Instructions Your [...] ANJELICA NATION PA-C Where: [facility] Comment on above: Result Comment: Elec [...] hours. Education and Follow-up: Counseled: Patient, Family. [facility] Comment on above: Result Comment: Elec [...] cm, GE junction at 34 cm 2. 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 LA grade C esophagitis 4. Minimal patchy erythema with small food bezoar, random biopsies were taken to rule out H. pylori 5. Normal examined duodenum Images Procedure images: Rec1_hd_video__T09_ 58_31_931.jpg Rec_hd_video__T09_ 57_35_791.jpg Rec1_hd_video__T09_ 57_22_273.jpg Rec1_hd_video__T09_ 56_31_217.jpg Rec1_hd_video__T09_ 56_23_380.jpg Rec1_hd_video__T09_ 56_00_763.jpg Rec1_hd_video__T09_ 55_47_399.jpg Rec1_hd_video__T09_ 55_01_644.jpg Rec1_hd_video__T09_ 54_47_930.jpg Rec1_hd_video__T09_ 53_17_345.jpg Rec1_hd_video_2023__T09_ 53_09_522.jpg . Post-Procedure Complications: none. Estimated blood loss: minimal. Specimens: sent to pathology. Devices/ implants: none left in place. Impression and Plan 1. Large hiatal hernia, 7 cm in size, diaphragm compression at 41 cm, GE junction at 34 cm 2. 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, [...] before breakfast and dinner Normal [facility] Comment on above: Result Comment: Elec tronically Signed By: Tram DOUGLASS, Zina Gallardo\.br\Date and Time Signed: 05/09/23 09:58 EST Other Comment: Aaliyah wilson Attachment - attachment storage system not supported [id number] Can be viewed in source systemMissing Attachment - attachment storage system not supported [id number] Can be viewed in source systemMissing Attachment - attachment storage system not supported [id number] Can be viewed in source systemMissing Attachment - attachment storage system not supported [id number] Can be viewed in source systemMissing Attachment - attachment storage system not supported [id number] Can be viewed in source systemMissing Attachment - attachment storage system not supported [id number] Can be viewed in source systemMissing Attachment - attachment storage system not supported [id number] Can be viewed in source systemMissing Attachment - attachment storage system not supported [id number] Can be viewed in source systemMissing Attachment - attachment storage system not supported [id number] Can be [facility] Attachment - attachment storage system not supported [id number] Can be viewed in source systemMissing Attachment - attachment storage system not supported [id number] Can be viewed in source system Inpatient Patient Summaryon 05-09-2023 Inpatient Patient Summary [address] [address] [facility] Clinical Discharge Instructions PERSON INFORMATION Name: ESTRADA PFEIFFER PHYSICIANS Admitting Physician: Zina Ugalde MD Attending Physician: Zina Ugalde MD PCP: Haven Encinas III, DO Discharge Diagnosis: Colon polyps; Dysphagia Comment: PATIENT EDUCATION INFORMATION Instructions: Medication Leaflets: Follow up: Type Location Start Finish State URO Office Visit [facility] KIMO HwangYanick 03/12/2024 8:30 AM 03/12/2024 8:45 AM Confirmed [...] Mouth every day. Comment: Normal [facility] Main OR PACU I Recordon 04-29 Main OR PACU I Record PACU Phase I Document Type FT Summary Primary Physician: Zina Ugalde MD Finalized Date/Time: 05/09/23 11:23:36 Pt. Name: ESTRADA PFEIFFER Khang Serrato/Sex: 1945 Male Med Rec #: [id number] Physician: Zina Ugalde MD Financial #: [id number] Pt. Type: O Room/Bed: / Admit/Disch: 05/09/23 [...] I Outcomes Met? Yes Last Modified By: Minda Alcantar RN 05/09/23 11:23:25 Post-Care Text: The patient demonstrates [...] Alcantar RN 05/09/23 11:23 Normal [facility] Main OR Preoperative Recordo n 05-09-2023 Main OR Preoperative Record Holding Area Document Type FT Summary Primary Physician: Zina Ugalde MD Finalized Date/Time: 05/09/23 09:38:30 Pt. Name: ESTRADA PFEIFFER/Sex: 1945 Male Med Rec #: [id number] Physician: Zina Ugalde MD Financial #: [id number] Pt. Type: O Room/Bed: / Admit/Disch: 05/09/23 [...] Jones I 05/09/23 09:38 Normal [facility] Monitor Recordon 05-09-2023 Monitor Record [id number]#[id number] Normal [facility] Monitor Record [id number]#[id number] [facility] Outpatient Surgery Discharge Instructionon 05-09-2023 Outpatient Surgery Discharge Instruction [address] [address] Patient Discharge Instructions PERSON INFORMATION Name: ESTRADA [...] Date Follow up: Type Location Start Finish [facility] URO Office Visit [facility] EU Yanick 03/12/2024 8:30 AM 03/12/2024 8:45 AM Confirmed [facility] You may receive a survey from [employer] asking you to rate your care experience. Your feedback is important and will help us understand what we do well and how we can improve the quality of care we provide to you, your loved ones and our community. It?s an honor to serve you. Thank you for choosing [facility] HERE ARE THE MEDICATION CHANGES THAT OCCURRED [...] day. PATIENT EDUCATION INFORMATION Instructions: Medication Leaflets: [facility] Insurance Correspondenceon 0 05-06-2023 Insurance Correspondence [id number]#[id number] [facility] Ambulatory Visit Summaryon 1 05-18-2022 Ambulatory Visit Summary ESTRADA PFEIFFER Khang :1945 Visit Date:03/18/2023 Ambulatory Visit Instructions Your Diagnosis Bloody stools History of colon polyps Personal history of prostate cancer Dysphagia, Dysphagia BMI 34.0-34.9,adult Your Care Team Attending Physician - Zina Ugalde MD Primary Care Physician - Haven Encinas III, DO Referring Physician - Haven Encinas III, DO This Is Your Medications [...] for Procedure/Surger yon 03-18-2023 Consent for Procedure/Surgery [id number]#[id number] [facility] Gastroenterology Office/Clin ic Noteon 03-18-2023 Gastroenterology [...] hematuria History of colon polyps Hx of longterm use of blood thinners Nocturia Obesity 29-OCT-2013 [...] virus vaccine, inactivated 02/05/2022 Recorded SARS-CoV-2 (COVID-19) mRNAMUL.ORD![id number] 01/16/2022 Recorded SARS-CoV-2 (COVID-19) mRNA-1273 vaccine 03/01/2021 [...] inactivated 02/16/2017 Re (more content not included)... [facility] Comment on above: Result Comment: Elec tronically Signed By: Tram DOUGLASS, Zina Gallardo\.br\Date and Time Signed: 03/18/23 11:03 EST Scre[place] 03-07-2023 Screens [id number]#[id number] [facility] Patient Educationon 03-06-20 Patient Education Oncology Prostate [...] Where to find more information ? The [employer]: www.cancer.org ? [employer]: www.auanet.org Contact a health care [...] flu (more content not included)... Normal [facility] Urology Office/Clinic Noteon 03-06-2023 Urology Office/Clinic [...] on cytol. CT AP wo con 10/11/22 [facility] - no renal or ureteral stones, [...] Contact Information MATTHEW CASTRO, ANJELICA Meza, URL [address] [place] [address] [phone] Additional Instructions: 1 yr w/ PSA Patient [...] hematuria History of colon polyps Hx of longwall foreman use of blood thinners Nocturia Obesity 29-OCT-2013 [...] (more content not included)... Normal [facility] Comment on above: Result Comment: Elec tronically Signed By: ANJELICA NATION PA-C\.br\Date and Time Signed: 03/06/23 15:46 EST\.br\Electronically Co-Signed By: Abigail Patricio.br\Date and Time Co-Signed: 03/06/23 15:43 EST CHEMISTRYOrdered By: SYSTEM SYSTEM on 03-05-2023 Prostate specific Ag [Mass/Vol] ng/mL Normal 0.1 - 3.5 ng/mL [facility] Remisol Comment on above: Interpretive Data: T he concentration of PSA determined by different manufacturers can vary due to differences in assay methods and reagent specificity. Values obtained from different assay methods cannot be used interchangeably. The methodology used for this result was chemiluminescence using [employer] Hybritech PSA reagent. Consent for Treatmenton Consent for Treatment [id number]#1.00TIFF Normal [facility] PSA Totalon 03-05-2023 Prostate specific Ag [Mass/Vol] ng/mL Normal 0.1-3.5 [facility] Comment on above: Result Comment: The concentration of PSA determined by different manufacturers can vary due to differences in assay methods and reagent specificity. Values obtained from different assay methods cannot be used interchangeably. The methodology used for this result was chemiluminescence using [employer] Hybritech PSA reagent. Performed By: #### 1 [id number] #### [facility] Laboratory [address] [place] [address] UroVysion Fish and Urine Cyt o ([facility])on 02-12-2023 UVFISH & UC Diagnosis Info Invalid Interpretation Code [facility] Comment on above: Result [...] correlated with cytology and cystoscopy results.* CPT 93295, 61922. Microscopic Notes - Microscopic Notes - Abnormal cells 9p21 deletions: Abnormal cells aneploid events: Total cells analyzed: Hematuria: Gross Description Site ID:A color Yellow fixative Alcohol Received 100 mls of clear yellow fluid with the patient's name and, Urine on the vial. Electronically signed by : on: 02/12/2023 11:43:23 Performed By: #### 1 [id number] #### [facility] Laboratory [address] [place] [address] UroVysion Fish and Urine Cyt o ([facility])on 02-06-2023 UVUC Method of Extraction Voided Normal [facility] Comment on above: Performed By: #### 1 [id number] #### [facility] Laboratory [address] [place] [address] [facility] Number of Jars 1 Invalid Interpretation Code [facility] Comment on above: Performed By: #### 1 [id number] #### [facility] [address] [place] [address] [facility] Specimen Urine Normal [facility] Comment on above: Performed By: #### 1 [id number] #### [facility] Laboratory [address] [place] [address] [facility] Type of Service Technical Only Normal [facility] Comment on above: Performed By: #### 1 [id number] #### [facility] Laboratory [address] [place] [address] Physician Orderon 01-30-2023 Physician Order [id number]#1.00CD:127 Normal [facility] Office Visit (Cardiology)on 12-17-2022 [...] Weight Tips; Status:Complete - Retrospective Authorization; Done: [id number] Some eating tips that can help you lose weight.; Status:Complete - Retrospective Authorization; Done: [id number] SocHx: Never a smoker Tobacco Use Screening; Status:Complete; Done: [id number] Patient Instructions Please bring all medicines, vitamins, [...] he had venous stripping last year at [facility] [facility]. Sleep apnea on CPAP machine with compliance. Summer Deshpande MD, [facility] Surgical History Problems History of Cardiac [...] 7:37:38 AM NonMedication Seafood Shortness of breath; Nunez; Recorded By: Marissa Guevara; 12/17/2022 1:49:59 PM [...] Recorded: 17Dec2022 01:33PM Heart Rate54, R Radial Bbsckfiv305, RUE, Sitting Wjupniyau73, RUE, Sitting Height5 ft 11 in Tdimug049 lb 12.8 oz BMI Yzmurrwmyz33.84 kg/m2 BSA Calculated2.32 Tobacco Useb) No F (more content not included)... Normal [employer] Tobacco Screening.on 023 Fall risk assessment a) No falls within the last year [facility] [employer] DO Work Phone: Tobacco use status [facility] b) No [facility] [employer] DO Work Phone: [employer]erson 11-26-2022 Reminders - From: Sonya Ricks To: ALETA - Reminders/Recalls; Sent: 11/19/2022 15:18:50 EDT Show up: 11/19/2022 15:19:00 EDT Subject: Ambulatory Reminder Reminder/Recall 5 year colon recall forrest roper 11/07 first recall letter Patient called. He is not credentialed with Dr. Ugalde's insurance and is requesting a call back around January. Reminder placed in system. Normal [facility] Patient Letter FTon 2022 Patient Letter [facility] (Inserted Image. Linda ble to display) November 21, 2022 ESTRADA PFEIFFER [address] [place] [address] : 1945 Dear Estrada, This is a reminder that you are due for an appointment with [facility]. Please contact our office at [phone] to schedule an appointment at your earliest convenience. Thank you, [facility] Normal [facility] UroVysion Fish and Urine Cyt o ([facility])on 10-19-2022 UVFISH & UC Diagnosis Info Invalid Interpretation Code [facility] Comment on above: Result [...] correlated with cytology and cystoscopy results.* CPT 32470, 26016. Microscopic Notes - Microscopic Notes - Abnormal cells 9p21 deletions: Abnormal cells aneploid events: 16 Total cells analyzed: 157 Hematuria: Gross Description Site ID:A color Yellow fixative Alcohol Received 90 mls of clear yellow fluid with the patient's name and, Urine on the vial. Electronically signed by : on: 10/19/2022 11:11:56 Performed By: #### 1 [id number] #### [facility] Laboratory [address] [place] [address] Consent for Procedure/Surger yon 10-16-2022 Consent for Procedure/Surgery [id number]#1.00CD:127 Normal [facility] Consent for Treatmenton 09-28 Consent for Treatment [id number]#1.00CD:127 Normal [facility] IntraOperative Documentson 0 10-16-2022 IntraOperative Documents [id number]#1.00CD:127 Normal [facility] Main OR Intraoperative Recor don 10-16-2022 Main OR Intraoperative Record IntraOp Document Type FTURO Summary Primary Physician: Todd CRUZ MD Finalized Date/Time: 10/16/22 09:24:11 Pt. Name: KENTRELLESTRADA/Sex: 1945 Male Med Rec #: [id number] Physician: Todd CRUZ MD Financial #: [id number] Pt. Type: O Room/Bed: / Admit/Disch: 10/16/22 08:36:10 - Institution: Case Times FTURO Entry 1 Patient Times In Room 10/16/22 09:11:00 Out Room 10/16/22 09:23:00 Procedure Times Start 10/16/22 09:14:00 Stop 10/16/22 09:20:00 Anesthesia Times Last Modified By: Georgia Almonte RN 10/16/22 09:23:53 Case Attendance FTURO Entry 1 Entry 2 Entry 3 Case Attendee Todd CRUZ MD SECOND OPERATOR, Jenni Almonte RN, Georgia Marroquin Role Performed Surgeon - Primary Scrub - Primary Bench Assembler Operator - Primary Time In 10/16/22 09:11:00 [...] Verified Availability Equipment, Medication Time Out Todd CRUZ MD, Verified (If Participants Jenni Sanchez CST, [...] By: Georgia Almonte RN 10/16/22 09:24 Normal [facility] Main OR Preoperative Recordo n 10-16-2022 Main OR Preoperative Record Holding Area Document Type FTURO Summary Primary Physician: Todd CRUZ MD Finalized Date/Time: 10/16/22 09:17:01 Pt. Name: ESTRADA PFEIFFER/Sex: 1945 Male Med Rec #: [id number] Physician: Todd CRUZ MD Financial #: [id number] Pt. Type: O Room/Bed: / Admit/Disch: 10/16/22 [...] Comment: left hip area Skin Integrity Intact, [place], Warm, & Dry Vitals - EU Blood Pressure 165/65 Pulse 63 bpm Respirations 20 br/min SPO2 97 % RN Reviewed Yes Last Modified By: Georgia Almonte RN 10/16/22 09:17:00 General Comments: Temp 36.8 Finalized By: Georgia Almonte RN Document Signatures Signed By: Paty Watkins LPN 10/16/22 08:49 Georgia Almonte RN 10/16/22 09:17 Normal [facility] Operative Reporton Operative Report [...] allergy to IV contrast. Normal [facility] Comment on above: Result Comment: Elec tronically Signed By: ANTHONY DOUGLASS, Todd Sexton\Date and Time Signed: 10/16/22 09:28 EDT Outpatient Surgery Discharge Instructionon 10-16-2022 Outpatient Surgery Discharge Instruction [id number]#[id number]:127 Normal [facility] UroVysion Fish and Urine Cyt o ([facility])on 10-16-2022 [facility]UC Method of Extraction Cystoscopy Normal [facility] Comment on above: Performed By: #### 1 [id number] #### [facility] Laboratory [address] [place] [address] [facility] Number of Jars 1 Invalid Interpretation Code [facility] Comment on above: Performed By: #### 1 [id number] #### [facility] Laboratory [address] [place] [address] [facility] Specimen Cystoscopy Normal [facility] Comment on above: Performed By: #### 1 [id number] #### [facility] Laboratory [address] [place] [address] [facility] Type of Service Technical Only Normal [facility] Comment on above: Performed By: #### 1 [id number] #### [facility] Laboratory [address] [place] [address] CT Abdomen/Pelvis w/o Contra ston 10-13-2022 CT [...] No Oral contrast amount in ml's: 0 [facility] Consent for Treatmenton 09-27 Consent for Treatment [id number]#1.00CD:127 [facility] Pre-Certification Formon Pre-Certification Form [id number]#1.00CD:127 [facility] C Urineon 10-05-2022 Bacteria identified Cx Nom (U) Microbiology PROCEDURE: Urine Culture [R1] SOURCE: U Random BODY SITE: COLLECTED DATE/TIME: 10/03/2022 14:32 EDT RECEIVED DATE/TIME: 10/03/2022 18:11 EDT START DATE/TIME: 10/03/2022 18:11 EDT FREE TEXT SOURCE: ANJELICA NATION PA-C, PA-C, ANJELICA Meza FINAL REPORTS Final Report [] Verified Date/Time: 10/05/2022 11:31 EDT No growth at 2 days. Performing Locations R1: This test was performed at: [facility], [address] [place] [address], [id number] [place] [address], [facility] Comment on above: Performed By: #### 2 [id number] ####[facility] [address] [place] [address] Patient Educationon 10-04-19 Patient Education Urology Hematuria, [...] these instructions at home: Medicines ? Take dghr-pdi-mlmsmww and prescription medicines only as told by [...] the blood stops without treatment. ? Take oyjq-aft-hgopcck and prescription medicines only as told by your health care provider. ? Drink enough fluid to keep your urine pale yellow. This information is not intended to replace advice given to you by your health care provider. Make sure you discuss any questions you have with your health care provider. Document Revised: 12/14/2020 Document Reviewed: 12/14/2020 [employer] Patient Education ? 2022 [employer]. Normal [facility] Pre-Certification Formon Pre-Certification Form [id number]#[id number]:127 [facility] Pre-Certification Form [id number]#[id number]:127 [facility] Provider Letteron 10-03-2022 Provider Letter (Inserted Image. Linda ble to display) Haven Encinas III [address] [place], [place] [address] [address] Re: ESTRADA PFEIFFER Date of : [address] Huang BUCHANAN DO, [facility] As this patient has been stable [...] Thanks! Provider Signature: Anjelica Nation PA-C Physician Enrober Tender [facility] Urology [address] [place] [address] Normal [facility] Comment on above: Other [...] urinary complaints. Follow-up With When Contact Information ANJELICA NATION PA-C, URL [address] [place] [address] Additional Instructions: schedule cysto, CT scan Patient [...] disease) Frequent urination Gross hematuria Hx of longterm use of blood thinners Nocturia Obesity 29-OCT-2013 12:37:00<$> Obstructive sleep apnea Osteoarthritis Personal history of prostate cancer Post-void dribbling Urge incontinence Historical Coronary artery disease HTN (hypertension) Prostate cancer Procedure/Surgical History Endovenous laser ablation of varicose vein (02/15/2022), Total knee replacement (06/27/2021), Cystoscopy (06/11/2017), left total knee arthroplasty (04/13/2016), left shoulder arthroscopy with extensive glenohumeral clive (more content not included)... Normal [facility] Comment on above: Result Comment: Elec tronically Signed By: ANJELICA NATION PA-C\.br\Date and Time Signed: 10/03/22 14:45 EDT\.br\Electronically Co-Signed By: Nilda Gallagher\.br\Date and Time Co-Signed: 10/03/22 14:28 EDT Coding Summary.on 08-31-2022 Coding Summary. CD:[id number] Ww+PGhlY WQ+PL7GUEKjS07mhMAlbV1qP7XBN AtOApbkFVNDSUcAZwNfikFjDS3lk XNjZXJu IC8+PS8eCNDzHoaqjKRpz3O1zPS2 D59wit0tCKexsGP6QALfYgTskogy o7qseLs8WLomYmexXfNg NFVssL29SPY8nF63Wb95sPLppRJh z2eaeQj1AlSaYROyUHZ3oBxoFCcl m7IbQBVqG02ymMQxr0O8 BZXqqMmmgLKkEwGbgFP9nO0cTDkm yjfxl9iayfdmMct6kd59uCFbg9M4 zNU4A4PocqY6MMIzdWSl SguqiYFMdN0rqttcm2hrbefySrKh EBXaJBl6PKx5BWLtjXpzFhCkSM20 RSP4IWPyzjUiV0TsCFEo xJaoAiH2p9P4Qb9PE3FJRjdxG8CX TUFSWTwvdGQ+BJ54ps75U6JpOfkl Avq2DWKwOCZ7vXU1wC2p DVNnCWzni9N4sZO6D1YdeoGkfb6s v9dzEDOkQPzdT29afCNlw2D5BJBo qGY2OMJepPnqVzKbiJ43 Oyc+AKRbsDycv3MzIbiug7fxo6ec fWe6QcftJUPvevNscYamXPV8b5Zx Sl9hJIFyyCE9iEI8zM5z SmAdExX7MAqfZ615GuUwsHAhApuo M19tA5IjkJJ+VUXoQjr5UQRriAax JP9yS4CaTTPpzcfbdGIw jDybGF4vJOPcfjzfCKKlhM4mDNUh N3z5MiHjGxX8UGadL2WyNKOlsmfo Ad84zK7sElVqHbV3WNmu I9AtyeQ4SCZchSMxBKqrNOR7S80r m0X9CHKsTXUtFRP0aDN3iJ8ubKhh bjogbGVmdDsgdmVydGlj YJvtLGrgM921ZGUfdYtpSlGgMZze ZyBEYXRlOiAgMDUvMDUvMjAyMzwv dGQ+FGXrRDW0rHrsFIXo eMErYVpdOw2ccUqxqCciYL0fQKYu qxdpZRHowO0tMJXyvUBxgNihDA9m BXBqdaljs275ExIsBDX5 GUYjkXHaG2VqqF7gHyYhEWRxPZYi F4JcvJCcQRdyC926CXudBpA1MWDx fsSdB3EuTRWdpUmxPnT7 r9F0Qe2Uf5BqfhbxN3LioYXfLwTh VwunGWo8R6NfAzmbaVX+HW70UAOv IX90MHt7POP7dNphNDnt NOWtY8KmnL8kAgSoMLJsQVCkOil+ PHRhYmxlIHdpZHRoPScxMDAlJyBz mFtdEP0wDf1yJVNrJEHg zRjyjXGtQyEmd0mrLPEzSXcyIA7b iQdaK8CmgJZ2JJNrr9m8Xa07I98q C8NlaEW+NQIjpPI2lHF1 kH1zQcVmIfE6BEhpW223XpMvkEIm Wmflq1hjs3grsYn6JzZ4YBKrjoBp eIwhSYM7a7YfDm89G34c SNvjVUDfAZNzUTHgLZRsgDtfld8c oB6cCo5+TOJuoJU6sGP6cJ9gBmQw EcX0EDzhN665KnPkqFTu Rvcbl1lzo4ariHf0CmLqIDEuajSn uUnuULJ3f9DoQm99P3WnrLytd4Kw Pmv7xj11kBFki5J7vLE7 N8NzKSAwlocfmWSnxWkjMJ3dXQAk paqqABQuiZ0dQPZjV5u4WdLhUlW7 TNadY9TysgC9BIWlfSTj KYAixXOVuX8kuhxpt3vqrazuJqOt OQLsNSw0KZl7QPGmnPwwTmYkVSZ2 WnX9WKN3oLMcwN0xrLzj cokxlM6uVqg+PCL2dVGegJXHON0g OjwvdGQ+YAQfLSS1xJcqLTzwLPNg rU2fXLRhU1m9BsPvOlU5 ZQfsI4QbvaK5FTGspCDeRSQrqXSL zE7drxdml0ongpihVgMoKKKaCMk6 VTy3TWYonYxvXzQxVKK9 ItW0JHH1tWKxoO1axKyvmaihoZ1e Oyc+KymaoNzzDLO1DTj7K7JiXmx4 FYEbqNbbBB6jpWZxEBtf Ks6tdWugwNugLT5dSZDanyagf873 MxXct6ioXEJdzRJbNJhlEDL2H25p o9M1SLPaZMSjJGQ0hKA1 oI9jjSyvmjpaeMIslEeulrOlwTav DOujSVmdH056DZEltIajKgTdOVf7 T6MzTqi5SUMsnYfxCU0s aHYrDHrvNj8guHalgRhlZJ9uLCCl jkyoq487ExQkv4zwCFYddIKmXKrl VAY1A63pi5G5GRDiBTBr POF2bUP4dY4qxUyfbpqciCZecJyk vaBxvNxvQGycAPfsC121QBFqvPlq AfByyYc2W4HzDdy4EKIo yPpvPL8xgNQyEPrdCk9wmCrjiAqx PJ4pGIUvtwgjc187ZfFok0mvAMQw nLPmLUzuOVL7P77su1A5 FAMuILOuZME7kYQ3kP3yyUiwcoty eOZwwRoahqLvqZxpZCqoAIliY825 IHRvcDsnPlBhdGllbnQg WMlnSQt7K0BbIzvioPQ+BG65OWAi ZD68gWRtvCKni3hgbRc9VpJfRIRg LBH8sHrlGFlgz9KtZKPa A31jbYWfz2X5WZJtqTszlFXlLlFg uYO2pE2uRYjfjlvut0bkxnrdKbel h8hear33cC26N11cWDhd OCFwVJTqRLGtEFGfdRntxl9xaY1i Ii8+RYEvsSK1bVC6xF8qARJiCpP5 GXzaD945JyVvhHFlKzvj d7nju1syfFc5LvJ6BLLffvHrsXco FZB3y3JcDz40F51wMGkzYHSaAGSq TSLdCMRnnYqyzq6biM3a Ii8+JTHsmOC9bRG3oZ7iCqHkJwG6 COpuM906HfOfkAUlGuclJ67xB1Nu dXA+EEPkIqx5EFExvImy EK8ecYLvBBuuTg3cBDQ3UkKiJhBm JGwoM9PtFEIwoftkwhixlBP1ILBt PFOilZ37Ry0hhBjqMRFg sTGSrG1tfoftl1kwcfqiKmWbJFMy EJw0ONu4RPYsbNooOvAaUML2YoL3 NUS4xFKzdH0beGosmxwl gG2jS9SbQYDrbiwrLn55qD4hYaWu LyL2MYkhSwx+J3FOWXzyUNBXN57U EdQMAJ15CD24sUOkj6O1 gVN1M6XeLZWpiwapirkdjXA6FPDy FMVztY52aJVmXKseAn5dc6A0h301 ONNbMJPruX08Tr4hePan QEIdqXSJbM6zxxzgv6vhejatQtYy UZEyAYe7XWf4POXuoMxvFhFvATR5 LfE9TUZ0qECsdU0dmAay hhyxnQ2iIga+DHIlEYOeJGj3Oirw dGQ+OPDwZHL3kLoiAWfaTOIofU6o DVAeF1h7PxXeExU4EXka N3JlSSLotdbkYt93mS5yXqLzWpX2 OSekW3KkhpF7VUSayMNbETdcXOS6 N15nj4M3ZPPuBMKyOGI9 xLI6hZ3qtNjmgammwKBwgQxytcWh iWzvGXtdVYskU510OOOlpPawRfr3 MEhxKPVnIM02FF21jGOd t3R4rIM8B9HaQNNabfkqhyrdpMW0 GDDgBPWenR94tKKnVPbxHw6ya5B0 c524IAFiLKEpvC19Su0w aLqxJLDsjGYJpB2pmkdzq3eqyuaf FkTgBGCsDQg1JSl1WMExvKdiIkXo ZKT6ItS5RYI0sNXocE5a zDljzwxkvO2aEfb+TWFsZTwvdGQ+ JGZuCOL0yEovXYmvKTEfrW7gFZEp J3k4AzEjKjL0KSifS8Db BPWqzvlfAs19iX1kRuNnDeO4GNxj U6GqggP1XPDotAJhGJidSDO9J99n z6I2ZHXmOUMnEOX1uFM9 cF3izKvhjyustOHwdPlsjxElsFzd BOqiVFitS662YPLnlTxmJfTmWRZk QQ2xnIyjkIF+VH32hv23 Z8IyTjlkZgx6ONYuOZB3wJD2aR3f LYEhLHepy0C2zVJ0X7IpdwIiod2d x0ndSRIeYWhfG08ojQCg t7Q1JVKpsFK4HDSpjDnwBmMcbV90 Oyc+DIWekEdhj0QjUgpeq9she1xq zFh9QmUaAWUkyhYyzAta SXX8b4ErVb45N76hKPonJXDcXUSf YBCaYEOhrSffcn5wyQ0jSf1+PGNv tOU4yAF6qL4uMsIhVmT4 DLvtJ048GkFscRGoRatjq2hms2rn sAi8YmGdJPAsrjJvnIycXVD1u0Kk Fb03G3TrjNleh0KyHft4 xf29yAEvh6T7vYI1W6NyQOXlwlux sQAmbGtbXS0xNMUkdpuaCFLlhN7g IZEyF4f8GvCkYwQ8WCbs E3DbfsQ5HCMvfUQvYAIqeTAAvH4n bfpsb9ekhvwvSnAkUWDtRTs5XDa3 AFEuqDygFmGsBZW3WkG0 ISS9wCCegN9qlQcyznvnlT0iHab+ CLp2n9xrsMGwTR6rwEB5YG54TO05 lNUnl3Z0hZB2Z8WjARBj rzfvtfpnmGP9KQCnAVYroV76Ea2m aJaaLc1oUBEtQYR1UVWfiUNjW6Nn uF7sLaNgFKGzBOPaX9Go mNPuZCdmN730KEhuVrH7DDVdmaWd X0YyBKXklJhrKjA4t2J1Pe6XEQ65 GO58ZJ38xNAup7C8oNF1 X3KnFWErvwbdbuawmAR6ECZnRHBc tH12Uw9snEgqFb2xKXQvRYR2OTYl nDBiK8VvmP7yYwLbZSJn LMFjQ8YgiEMjUQslI062INhuIfD7 VWAxjkEgU6PtSRSvsIkeLxQ6a5Y7 Uk4GQo46GZ03RI86wIHu o5M5qAW8Y4VjUIRajvhubiraiQL7 JMQfFVHafR43Rg2nkBjuAn6yPPRm WBK6ZPMsbVOjD8ZprV5r BvXlZERoGUUoR9MtiGCeSEgzY288 LJztFgZ1GXXjhcFyN2FmVUKjnMfu ItI8v6K0Ky7YCYutzir7 Q3YtKiienDM+OM95YZHhMW09fWTv hUIot5wnmVy2QeJeLMOpDEH1pLgl ATvzc5MlAMXjJ03gdMDa c9H3ISAt (more content not included)... [facility] Coding Summary. CD:[id number] Ww+PGhlY WQ+ZP0BAMAqO06vaNSdhR3OD0vEC F1HVOTHJVROBB0AFL0sfTC0WKqyX 2VybiAv YsevlGSlFA95ICm5PJV1hLytUUey xL2gcBHxU1t0AkPcUJ72xP56AGlb BOWuZdU3OmDudmjwoJKl C5wdInQeyMZiChi+PHRhYmxlIHdp NSFdTYrvRFJkYyKhkAkgPF8dLy6w ZGVyLWNvbGxhcHNlOiBj l4ceCZJoAIkeXT4dtGcjH3XiwCK8 FHAjb3m7Sq21oVQ+NXWsKBN6jMpc HYleu521ElPbw6ztYAX7 pLVaJKnnZSG8E41op7P0JECxJARu AHF0aQH0gO7kvAvojrryC8ByzMPg DhN5YZB4fNTggH9fpLdk udpljO3wGcp+D75HSL7UNTRDHD9P Agb8F7LqWjtxdAE+QE22FXFeBL15 xOTbbKHda4ehmXa9YwWa ATInFIK0mXrqJYnhc7AwXKPfK52u rFTsf2A3JRNpzLelvZMnZbDleEZ6 eA7tZGdvhsjms3sgetjl Acbur5fuqr51qN90A47dCPkpRGEi ZIZ3DAOnHKVkgZpove5nhQ1dVu7+ CArwy6aot8tptKe4EjAz GFUlpjVfoLjxXRQ8g8XhVc15A3Lr yAzql9StLen5ej01qIIsv2Y8eSF5 IDnyGEHouR1eVHadXnD5 UYPnSdYysC24tUFmVBffJx6ivShx qVjrKK8jPFTsznvpWHVlfS4cNRHz yZKcsZcyFI7bJTZfdiwi o506HvUzUKF1QOLzhAEgG6DxbF0q FlXxLUEtQSDxP3LicPCyNFgsV666 CWxiCuH4ZANokiVkH3Hh VTCfvNwbZhX1m2V7Cq9Yi7Shuxfa CPI2RQhsMBWfSaGtChJsBuV5S0Ig Oki8RNYfoLluKM9yX7Yn VAHbfptexebeqHF9UUEeQAUppT39 kBZtLHqgOq2js4S1i486WVEwPBWy uN28Xo3hwGihCCWchSYY zS3ziqqza4kptucbZvKgVIOlWZv0 PMv6EPLgqCatCjUxRKJ8OxP0UKT7 yJDilZ6diEdzmglkgB5e Oyc+A17ltH9hKZL9WRT2oydsJUAj awGkGX76VU30F1UtXlsqhOEtzBV+ OKTveeXtxUrwLZ7dZqCa n2nhe8VeVXejC5ZrVCUeHGqdYrb1 UBXzQCY7tKH9sU4qTAVxTCesm4E6 jBC6K5DcyfAona4wf8ve QKWiVJnoA00cbFUhd5P6MPSosVX6 FFRpeNsiSpTblM63Abv+PGNvbGdy r7RvIqqmu4ung6cnjGm7 FqIiEKFcgyMcfOdcVNK1k8OcSx60 I71nZLviYKGkVWVaIUQxUMOxgGla zl7mvN4yCf2+PGNvbCB3 cWB9iP5kCLUxPgG0QOejS701EkOt iPWiCsocw5pxh2hdcOd3RpPiQRFv jmKbtWgoYER4j3LdYx33 L98uOEeiNKDyDJXiKKHnEAAqoBxn br5veQ5hFh4+LR1ly9wxbu78oT09 dHI+KBYgOCX8pSufOYgr TTApeR6iKFthWlN6QROrPjEibN15 rZVoOJhnCy5fgHcypGavQG6fJWGv gqren223GoZpc4udOKNr xVDnJOxyBJB9I94yd7U6VTNdUXXu XEC9cPT5rT6qkJlnfrqeeUYtrPsb ijAaaIneUGntXKmrZ300 IHRvcDsnPlBhdGllbnQgTmFtZTo8 I8RsFsd1JEQnbIyhNJ6wnGIpWBqz Tn5zhLcptJgsQF8jRKYr csoat004TkVxq4rlZZRlsEMgNXmb EQX0H08ik1Q4KOHuGNSlYNR0eVP0 iI6ikTtgmxcumHVxpWfj lbCbxAbkMIzgSSusF666EKXreEap YrMsujZuSHZyiHU5OU67VS45jZJa d4I0hZW6Y0VrYQKlospp nubejAT1AHPxPGOysK19Rs5fcPsd Sg3vMMUmWIG2HOYwhUTxC1OxzT2r RrPrHVAaEZWiJ5TryZZr ZVjyI663HIqqLlA9MFTaljKxD5Ty BXAdaLvzQrC9t7H9Js9OY6A9NB71 AN28iVHzn4O4zHX7P3Ni EPAilzhhbqvbfEA0UGToWAMneT32 Lb5osJwdZm7cTTTpYZY2GRMbcQPm Y4GryC2mZjUcGCNmWIYh S2EflGMbJOpwX486NRplYyR5EAUu ruQvR7XiVHGrsYevJpW1f9S3Zk9W VOq9JQ54CL32vNJyd1Q6 xCJ1L7CaNFIokkicdhohtGH6ARDk ACEabX50Ro4phEtbBx8aHWUuTAK8 PRZbsGTdR2BhkK1eJlCz GNCnLJGhX9KryLRvNDuiD756HTgx AlN8HJNeukUfL7OeGERvlSlwHlN0 j2F4Rx1WBACcER04VTK3 cWN4TW63TF89G2CeWqkajUWfzTV+ PHRhYmxlIHdpZHRoPScxMDAlJyBz fGmhCD1eAd7gYDGhYWFx gRthlIOwEkUur6dwOPEmTRrlCW1j yFxbJ9TxmTW4XJNsg1v7Lv59P04k A6JrvIL+IHEwoAV0tGG4 xJ4eBwVeSmL3RZbtT644UlPnrNRy Dvpxg4nnr4hkpSu7XvB1YUNkrhWm jZfaPTL0p2SbSq34M17k VKwaJHLdEEXkNGHmEEMdxGzsxm0e nB7aQj9+OIPqaXP9tCC9kN9lMfXw OzI9SLcvI163BcVscNPb Xdkar1khh2tstJt4JiLsMCJqwfEy aJpvYVK8g0FxUu37M7IwuPuww7Oh Hjb4rk04dOMph8A6jRZ2 T4KxHOSepybqaCXbwGdfZY1fRPBi wuisJSMxvW1tXKCbG0s4McJiNaK7 OJrvJ7RvzbS7NNYiuTFu NQifXIM2E83yn0I8FKDdSIJdVQP0 mKP0fO5prYetaxvfuSLxwJkjwsXs bRxaNEjuJPraB780WUDk gAnlEMXliN8cIMTncVTeiVdmEV8m TAXiqndwOxmSEXmCNRJEST2PKCPa QTwvdGQ+KOGcDIZ3tIzm XYizLBSdhN2mQEVzF3h5DrMtLnA4 ZEyhV1JnNGWloklsHm56lW7dDfDm IvE3KLuvU9GjqaD5MZOw nRCdQOwzHZD7I10ff7L2KCQzCINo GZD3nZP3qA8pnRybxqoacCDaiPus nqGfzNmwNHgkESuqR526 RNSqyAklHtRaHkAhIwF1YXq8W5Qs Bjx1ACOmbJaoUJ4xtAQaJRzxUy9f cAfihApmWQ8sDECgdyoj UCFtwN2hWDQrnLUteQbzRW3pUONy uayte761LoJhFEU5TOZovKBvO2Yg pH9gBjObHBZyIFQbY1Hs aKEwIHisK867LZmyNhE6PHCmowAw R0QdDOVbkWhcQbM0t4I9Zc68NzMN ZWFyczwvdGQ+PHRkIHN0 fSaeOPaeEWMimT4iLDRcS5a1VbEr EpB2MCmfO7CaMSKhfcwzHi20gN1w LsHiYjN2OJadC2QfdiN5 YAEpkUVuMVeqQNI9Z82ra3O5ZKLd TPHeXAK5iVD1wS1xqWkuurmhwFWd dDsgdmVydGljYWwtYWxp C668THKtsTxkTf0znYG6M9UnCmw6 OMCjyIyxUR6cdFWkWMshYc4loYvw aTpjEP2sREAgskqqJAPz jP4tKBAoaSQttFrrGQ2mBYTtxsum m966PsKeSCY2YANodXHtU7JmhS1b BkDaMMApBMIaX4RacOJk SAxnR882TUkuQfM0JYMxqfOwB0Hp RMVcyAzsTaL2b7R0Bj5OgSAyG5Hd N3d3V0UzYsosnLH+PC90 JFWkGH15lVGpdZJpl5jjvZx0HwBf CKWmNLE6kGobUCywi6AePRQeY29i yATei7R4AIRyyNzosLJf HdCbxZQ7iF6nTAwowncnk6pmxezb Oyaig9xhtr91sZ69F10iZOsuAWJo QNXxIIUoXFYcyEmecd5f qY7vWi4+CCBfyVK5qMC5rT1aXiVu CiG8QEskI045BqPbgFWnMtikc3zp d3fbcNe6NlUfSNTeljMc jTvsNHM2j9VeVr84D89zYLhxIMJe YVCvWTAqTNOihTjnlx2pnY9eAb2+ MW3zc5qgsr21fI57vSA+ GGBrRJR9iTmiKDyjONIlgG3zPHlk OlT8CIQxGvPwfK58vNYrKVcdHg1v qRbxxCcrKA2tKJVsljzo p652IaUnl6vbOWMgiXYjMOrtKHS6 H11af3S4HILaXUOjALN5zDW1oP7a bGlnbjogbGVmdDsgdmVy vWfiHDjxSBdcP022TXXhjPovBwFw pXXnF7lvvgJNFV4sLytuwGW+PHRk PSQ3bZniPYyfYBNasT6k CAFjX7u0OeToXuN8EQifM9MtroE4 UYIrhGZfOUQeyTTQjW5roynjd9ug ukpoBdKhHXUjSSg8NAx1 URTzrLljFnQgGKA4VbN6QPK2eVDm tR7upNqufrzenI5oHth+RklOOjwv dGQ+PDKtUAZ3gCfjFHxb XJJdpR9vFOSpY6s9KzOsLzL3POtr F3DerpB4ICGauFNtBTRjcKVRnV1g tbzta7vhuwsqGyYnXGYe HMp6EUg9LLXxkVctDzTtOOZ8KgW2 CBC5sGWpuW8rqMxvofjvmM5vSvv+ TVJOOjwvdGQ+PHRkIHN0 uYpkFHtwZNSqxX2mFAKhG0h3HpEx HxC6WTvvQ4XdgrS2QZIdmDIkKDSd eRDKbO0bsglyc9oxwezc VkFdOPDzEWv5DMf2XTKrkGycXtUl GEI5JbN2IUU0fQLaxR0lhYcisjfz hS7lXmo+UZV6JZU1HU88 IK03P3PoRnwdpAHirYE+PHRhYmxl RZccEBRjYNneRLSiQaAzsRphWV4a Pu3rTNFeYNJceVxvtHKw PnVwa1mk (more content not included)... Normal [facility] Coding Summary.on 07-10-2022 Coding Summary. CD:[id number]:[id number] Gh0bWw+P GhlYWQ+XD2TILFsY52oiQAehH1oI 0NMTElOSywgQVBQTElOSyIgbmFtZ I6jgWBwOVQf IC8+IR2xTNJgRgqzmFGkh4G9lMV4 J01jgw9sLSdraMR5OYUuEuCdbowf k1igdTh2VNszHwrbOsJr GLVusO22FUU9cI92Wi00tHRynRQa s9qagZj7HqXfRSQkHGU4cEbeLLlr q9BzJIUdB68fyBScu3E2 TUDlvBvaoBGeOiYbqQC6nE9rVVdb wcgjl0bvvnknDku5ji95pJXno5K5 hZX7L4HwacZ9RRUsjYEp TnjxkZCNoJ7kkuzyl6drzlrkBgUw VTYsKFk8ZLv6TTRlgEddAkHuVC88 FLH7SWLpdyVoR8NjZXNm vTxkDpA6w0U2Xi8BH7JOFpaeI9EV TUFSWTwvdGQ+VD05at71J4IzRizo Byn2PYLjHGT7pOT8nU6y PUCnSVnqf3Z4gGM3J1EtupBpep3z a5efEEOkXQvpL86ykGFhr2L3PKSs lUU0SXWhwHvgSaUhpC37 Oyc+MIOyhRbrr0ZfKmqfd7qva1uf jHp1AgruWATtzdJvmVahOXZ7t8Oz Ze1jKNBrsZL6aWU5eQ2t AgCiAyG5VSekN512NvFjkXWbRmuc P35oK3HsoAJ+PLHsBiq6NBZpdHlw CV8eG8PzFMJoiuxvtOXa mZdtSJ2eYIAwhvcuKDRyrJ2zOOUi U0j9AgAdMwL7YLreR1DeZDTreaff Rg01oU7jIdQuNqJ4NCbs M5CrizS2JGYapBDvAZusUGH6M13a o7A5RLEiNTErGXD7aXD8rD8dfSeb bjogbGVmdDsgdmVydGlj IStqGTyhD114NAZjwMnaMqMuVSob ZyBEYXRlOiAgMDMvMTQvMjAyMzwv dGQ+CSNiRUA1qNhqBYEg fUEtWXvfDc0knJibkFahGS3lQRUm wddnIBZejQ3zTMKrbBObmDrtVS0w NUUkrrrwv852HkGuLGD0 RPOugMSiR7WeyQ5hZrMuFLWkDKNq L0PnwDPpJVttX521HEsgBeK4NTIn gyOtA6YqQTCdiEhgMcA0 m3X2Vx3Gc5QyzzamP4ZjiMFdDqJg PshcERl2S1ImMoiznLH+UH41EVRn NX89KCv3KAR3vAraRJbl BUDvH6WmvO7uZoSeFEKeLVAkWqh+ PHRhYmxlIHdpZHRoPScxMDAlJyBz jHdvUK9lIu1oSEByNIEh qHzoeHDlChWke7vqSIOzGPlfDG2q nBjiW4NfaJP5PQSgv8b0Wk68U01o C7UaqTH+UWJudBJ7sZA5 nD9iPbFsOxC1UIcrX375EmWnpJAc Wstxs4ebe8pjzVx3SlT4AHAbxoHn dOvnNSG1s5QoGy14X27b OXbdIYXsFEOuOGWlZMCwnCudnj9k tQ8oHi3+ZLTmvGA0ePK7aB2oJxUm PxO6EKrdL416XzQauDUl Aohyh3exe7bytQm4PxCwFSSfywFx lUdgXFU0x8JbEw56E2YhpZdfj9Fu Qss3ma26vOKbh8Z2pMN8 O0LoGQPvugcetUEuwEmrNS9zZESr spwmBJWecS2eTVKbE1c2AcOtMjR6 NDmqL3OwfeW4LRWkcPUb SAQpgHAHhG9zkytiy7ixvhjtPbDw XTMbFVg1NTe5IQTyoUhjXlWpVOB8 IbR0ADE4dOLzbY3nsLbf xiufpW5iBsv+THQ4uZAleJMEER5u OjwvdGQ+BGRzMRA7aWpoMUueJSSu hF5qOCFcH6t6WpQgEjF1 WFuqH8UnauK6DBWpfJViDZKucGYP dA5atrkwa9goylysWeHrKBOvSSf9 GZn6DWVgnEdmCuFbARD9 VvY1VFM7aPVomX5ksEyfvnkraV3y Oyc+SgbjfSfgLYG6KUl5C1IsCvz5 ZMXjcUhtMQ0lxMDpPRhs Qq1ckQdkgFekCD7fKXPvlglbs970 LpBoj1ffGGRxmSPiKVtnNKT5N33i y1H2NZLoDEUtUVA1tUR8 yZ8lbKomzkvuiIArsAntpaQicCup ROwvGJkjJ701KYTbrSqwDxIwEVi9 H6TpMib4NWNjuQheTZ5l hTOuNHgiXx2zwCmctKtiFG3vRSQe vmvjg174TaKxl1hdXOYljITtGKmc HUR8G29hx3G8FPGrLKOi GTW0qSW8pH7qcXcqwywimSLptVym unIljCxpNVupDYusF690XVWdpLpy WaCrnVc5U5JaDis6SSTx nShlHO7cwWKkJCrgUh6hdEfusUuo BF9rTGLipcywn722SkDoo9qfEBHn yGWjGAreMWJ3Z60ml9X7 QEWrFKXyEIA2oXM2xF4zwOasvayk qNCmlIwaczYgtCokDXwqPVmrO908 IHRvcDsnPlBhdGllbnQg XGkjKKj2X0JgEqdfoDH+IS16ACTp TW95sUHewGIya3lqdCz1DqCtHBUc GNL7mPosQVacn3YzIBTv Q38dgMBzt1V7YGJjpLwyeRLeXeXk vGD6kO1kCYkakjovf4aikvtsPqdc e1rprg24dO76H53ySEuy SXCcPDXjGCEiXUQbzJsxps2nyD1i Ii8+EFNpqDD7tLL9rS9yQILeIiN9 QSjdC328NgEaxDRzKgie g1hzh0pwgDb5NpJ6AJNixoLgfJlh WLR0f0HqTw50Y56hTTfgADSjLIFz HHMaXGFtvDfrru5vjT6k Ii8+GZHjxVK8kFJ1gX4pLwPaUiG3 RIzzX982XkIyeZSnTpieD11nJ5Cc dXA+YUGbLid9QXRjlXqr HT0uaWSkRGggFv8uCFZ3EgBkUdPa ZUkdW2FoGIQhtzedrctddOD2MNMh DRQxsK07Zn2zmBouOJEy xUXXyY2sbzcay7advmlqXpPnZFAi VNk1VAb7VOUvtMhgUgRkOBG8WjT5 ZTY5lIAyoK2yaJyhnvzi mT4gM9SsKKTcelphOj27cH2yEwSm UxB3BDikYqy+H8NAIGqiHGBPC50A WcQCUY18DH04iWYlu4J6 fTG9D7CtFSLtfgtxjsorkBZ6JGZk DHOmfJ85jMFgNRtoEy9lq1T5j833 RMLdYORmxG30Lh1mwNov KIKvkZHQoM3ngxcdz5cnnjkzJlTs NFPpTSx1GMv3ZPUvcIjgMtTeZCD0 EcN2UAG8dYVxuW9crIue whyehW3qIta+GQTpZYLmGFs4Viql dGQ+TQYqDJH6kYpyIIrhLQQgqG5a PKDqI4h3BpPuKtB1XOtw P8EwUJVckbdgIl63gV9tRxApJiI2 EDbhE0XukqW4ISFrtEHlBKbjKMC0 J33wd4I5IPHaYKJjQQW0 eSU0jB5orLijxanyrTAhbOlisxXd nHbcNHaoWZglZ966OEXrvMajWye1 VRrsPZWsPJ02LH49wSHr j2L2bUB9H2NzXFBbbbidnrgohXT2 ALOsXLGphM63uUGqFHwsDc0nb8F0 n291VOIgFCUmbP15Xq9e eGlkKCRcnKDSrZ9lxtowd6irxlsu YqVhVPJmMTq6TKb1EUEqkMsmMbZn ZIS7IeU7JSX0aJFeaF3x nCjawunupX6tAwr+TWFsZTwvdGQ+ ILVoNZQ2bAdjIEzrTWMmaG3cHLMg G0u8CjTlSsV4UOnqA1Oz EJModoioWa04yB7bAkVnTfN0AHjk P0GgehI3LKNvpZNxHWrwBHU7Q37x s6V9PTCzCCRqKIF6sLL7 bB3cgEztuunjaQKlsLejurAomBdf JZmkMIudP697IEUxrYtrYi33hHBi aLfcmzK8O2HoPvphcMD+ SX53FSBeIL04gTKmiUPuq8tyfHw0 YlAuHSMxPEG6rSdqHRjhk1XiVAVz L56xyFJde2Q5TCXamAgo nFVgIcAilOG7aQ1lZRakukwbb2nk oxnrPzopu9llgq21gL66V46uRUuy ZHRoPSIzMCUiIHZhbGln wj5spN0hAs0+IDPefBL2rQI7hI6w IlCmFlO7BBojC679LcIsvJCwHygg t9agt4gwkEr2JyObJDJh mvWvxClfVYD8f6JtBw25Q62mEZtt EFIaMESaQIMvEOKnoBhuzi8itI3f Ii8+DF1sg9rbej26pK74 dHI+BRUsAAA4dXkhMPjzYVByuO8y VFboIyO2EJJmMtSnjH99mHKrLFax Sz0zdFkzkJneJY6hKLJr roibh705KnFjy8sfBIXaqFGbSEve WJO1Y62pt0K3WKDaNSXzWIW2jVC3 bE1uaJhmosjkmKGomKgg ztDhbHzfESkpVQliE990FYCtuFwm OlBujUTcP0hvypUAJG7oPntuuIX+ KXHoWXR4aSuaURqiVHPh yM8aKBEhI4a3ObQgXfE2JNnyX3Nf wsW3ZJAlpPBrASJczCWNrP2mrpaf h5nmbrqcLqOlTYBvXKv7 GDy7IOJfaTpfXgZzBCK6HmX0FBG9 uQDopL1ldBftqqyzhV6kOwy+RklO OjwvdGQ+QTAaFEY1bSqc PGllHHUbdT3eQFRlP6c2TxNvRqS7 TRvqV8AmqfC1XCRwrAErKJEwzDAA vA1snefad8xpcjneOgIw LRLmHUx1LIq3TIOngQdmCfPkERZ6 OnG7IUW7jBQlvT7tbActnfeukZ2b Oyc+TVJOOjwvdGQ+PHRk HJS9uBiyPTsmZTEcdY5fFLLbG5x9 LuEaIsU0BHgrN4HkvpC5UBJocDPy QGTwvEXNwW0pdoyce0oc tnqaDmOgEXPfYGy5PTw9JUNczZwv IfMyYYA3RzJ7OKG0iYZuhT9jtMmh xxqfnM3mMwf+CDP2HXJ1 ME86DA15Y4HgYvdxzCXfpFS+PHRh YmxlIHdpZHRoPScxMDAlJyBzdHls GE5wNb4qKVRsPAAgvRsm cHNl (more content not included)... Normal [facility] MRI Shoulder w/o Contrast [facility] 07-03-2022 MRI Shoulder w/o Contrast Right Exam [...] Fluid extending into the subacromial subdeltoid bursa. Pncc-mi-fhwn contact of Report the humeral head with the acromion consistent with rotator cuff arthropathy. Ordering Provider: Tulio Vaughan FINAL REPORT Dictated: 07/03/2022 1:09 pm Julio Arcos MD Signed (Electronic Signature): 07/03/2022 1:09 pm Signed by: Julio Arcos MD Transcribed by: KALYANI Technologist: BRODY Technical Comments None [facility] Consent for Treatmenton Consent for Treatment [id number]#[id number]:127 [facility] RAD - MRI Screening Formon 0 07-02-2022 RAD - MRI Screening Form [id number]#1.00CD:127 [facility] Physician Orderon 06-29-2022 Physician Order [id number]#1.00CD:127 [facility] Pre-Certification Formon Pre-Certification Form [id number]#1.00CD:127 [facility] Discharge Instructionson Discharge Instructions [id number]#1.00CD:127 [facility] ED Clinical Summaryon 2022 ED Clinical Summary (Inserted Image. Linda ble to display) [address] [address] ED Clinical Summary Person Information Name: ESTRADA PFEIFFER/NewEva Age: 77 Years : 1945 Sex: Male Language: Jordanian PCP: Haven Encinas III, DO Marital Status: Phone: [phone] Visit Id: Visit Reason: Shoulder injury - [...] 06/24/2022 23:50:53 06/24/2022 23:50:53 06/24/2022 23:50:53 AD[address]ESS: [address] [id number] PHYS DOC NOTES: MEDICAL INFORMATION: Prescriptions Given: [...] up: With: Address: When: Tulio Vaughan [address] [place] [address] Business (1) In 3 days 06/27/2022 With: Address: When: Haven Encinas [address] [facility] [address], [place] [address] Business (1) In 3 days DIAGNOSIS: Rotator cuff injury Normal [facility] ED Note-Physicianon 06-25-19 ED [...] Complexity of Problems Differential Diagnosis: [] [facility] Data External documents reviewed: Not [...] Vaughan In 3 days 06/27/2022 EST [address] [place] [address] Business (1) Additional Instructions: Haven Encinas In [address] [facility] [place] [place] [address]- Business (1) Additional Instructions: Patient Education How To Use a Sling Attestation Patient seen and evaluated by the physician home health assistant. Attending physician was present in the emergency department and supervised care. This visit was performed by both the physician and an APC. I performed all aspects of the MDM as documented. This report was transcribed using voice recognition software. Every effort was made to ensure accuracy, however, inadvertently computerized vfx artist mistakes may be present. Appropriate healthcare PPE was used in evaluating this patient. The patient was placed in a mask. The healthcare provider was wearing mask, gloves, and utilizing proper hand hygiene. 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 Normal [facility] Comment on above: Result [...] 11/27/2004 Document Revised: 03/28/2018 Document Reviewed: 03/06/2018 [employer] Patient Education ? 2019 [employer]. Normal [facility] ED Patient Summaryon 023 ED Patient Summary (Inserted Image. Linda ble to display) [place] [id number] Patient Discharge Instructions Person Information Name: ESTRADA PFEIFFER Age: 77 Years Arrival Date: 06/24/2022 21:36:41 Discharge Diagnosis: Rotator cuff injury Primary Care Physician: Haven Encinas III, DO Provider Information Primary Provider: Josh Obando DO [employer] Analyst:Amadou Hobson PA-C The exam and treatment you received in the Emergency Department were for an urgent problem and are not intended as complete care. It is important that you follow up with a doctor, nurse practitioner, or physician?s home health assistant for ongoing care. If your symptoms become worse or you do not improve as expected and you are unable to reach your usual health care provider, you should return to the Emergency Department. We are available 24 hours a day. KENTRELL ESTRADA Quiñonez has been given the following list of patient education materials, prescriptions and follow-up instructions: Follow-up Instructions: With: Address: When: Tulio Vaugh[address] [place] [address] Business (1) In 3 days 06/27/2022 With: Address: When: Haven Encinas [address] [facility], [facility], [place] [address] [facility] (1) In 3 days In the event that this physician does not participate in your insurance network, please consult with your insurance company to find a nearby participating provider. Patient Education Materials: How To Use a Sling A MESSAGE TO ALL PATIENTS REGARDING OPIOIDS PRESCRIPTION OPIOIDS: WHAT YOU NEED TO KNOW Prescription opioids can be used to help relieve qribytby-oj-xjfhrx pain and are often prescribed following a [...] (more content not included)... Normal [facility] XR Shoulder Complete Righton [...] in mGy = n/a DAP = n/a [facility] Consent for Treatmenton 05-31 Consent for Treatment [id number] [facility] Coding Summary.on 06-04-2022 Coding Summary. [id number] Gh0bWw+P GhlYWQ+DU3VOYLmV54pvQZdjO9TC 6rBAJ8DTEMDWIJRVW4JWU0tnYH9B EcmL0QqtoMi XusvnSZbGX18NOj5SAD5tCylQRpm jO1cnPEaS2a7EbRjBH52zL50ESdc EMGbIkC5VoEyfbtfpXQq Q4auIqOhpALkEuf+PHRhYmxlIHdp VJQlGRylMPEmDuOmgByzSD0sZi6h ZGVyLWNvbGxhcHNlOiBj c9ivUPJvDEjcQO4rsFkqO4SzvGF4 AHIad7f5Tb70sCX+UEYcTPK9xZxa BIjlj813LoTmh2faLVX8 fMBvAHrtWGP8O15ys1C0GGXkNDNd STY6aET5hU0faZldilnxF5JriTJz SgC9AFG0zFBrcQ3muLca tmldbF1hVrk+P67IPN6EPFOSLQ8A Xhb7L8VkNscvtWW+CG15HVPmZQ85 kHMzwNAdb5nvkGk2ZfIr ILVuRJF2bQnbGMbfa0AfMVDxG20m qUNuy8A0ILZtdDpdxFDqBkLnwEL5 wA7uHMtlfaiym4ttzoko Virnm0afpf70nC44R86xTRzxJCKj KGC1GGDtHCKmwKhjtd1baX9wPw6+ NFrly0xyl9gbwOk7TsPw PESgtsHiaQglDNA2e9XrYb89U2Lr pRqza0GeYlf6bn25lVDpg1Y1yJC6 MIdjVNScgM1yKDbmKzJ5 RHDpKoNhbI58jQCwQJjeTb2ynOpn kSdzPN1vLCKedqypKBXjkH8iWZUo tSHzcIkgXN7dXLBpizjy b157BmGjPTV7OATubKYvX4PykG5n KlWoVTAhOLGkI6LudSOtDTehG635 VLrcTiH6ANFznfZgF1Eb YSPfhXxdQbO0m5B3Pg0Qu0Pcjpcy JKR4QTmjVPJiStF4VgYoFtZ2S7Dl Tph7FCIuvHkrGP1lR8Mi HZKfttclbbjxqNW1CABzLGYdmO47 iWTcOAgzKd1pa2E4f772EXNcWIAe mL23Uj6roSzlCQPqhQDJ tK7qwmkio1lbrbmqXoGbSSCmNOl6 AJk0LYKxpJmwDmNpHRW7YdP0BQQ6 mNFgcW6fuTeafbmjgU4t Oyc+O57aiW0yAFS9IPH2gbgbLHJx atZmAM55HR33V8UaGqtupZOeyDG+ RIZjedBplUuaVO3kBuUz d4bmg9FgFIghR8LnRITaHQibBjm3 SEUwMZZ4bBX4nR7yRNKvOKrma1B5 wBK1T0YfcfEdts7sl5hh KXZeDWweJ41ftSRev0O4MAFxqRR5 LFFyfFzmHvKnlA35Vbw+PGNvbGdy n0UkKfvjz9bcd0eilWo2 SdHiCJZbslFdnYdqYFH0j5NhFa79 A63lXAjuQBDyFNWyDDZgHNQyhScn cp1saO1jTr9+PGNvbCB3 gFU8hI0oDKDtQpQ7RSoxH451AwZo pWEaZepte8cmx9pglIs6IbUdTOGk saDdkXntDMB0z9DmEf90 F55hTZjiHAGhWOEiERHxURXquNhf wj0crR2wOc6+MR0de9wkgi16kM68 dHI+HAUkNFK4pLwzJMvy VQQqqC7kFYzvMhL1GTTkCnXjeS43 yWBmMWdzPc7jvRzpcUruKH7eHNSd ihbcu671WiBkt3caGLHq vZShIRydARJ2P61rs2G4AELuOEOx ZYC3oWP7dC3qbBfyfeqayHSdhQys smRwyHzvUIruFWuyX815 IHRvcDsnPlBhdGllbnQgTmFtZTo8 V2RnEej3IQAixKtfWR2ulEPqCBkr Np0toRraeIutVI4hKUZx lhbcp136YyLyz2frTSIbuQTgRIvx TUR6K39uu3U9RHEoSDAcCFW8pAY5 cI1bqVzxbjikwQFwtMcl uwDwxZpsYChnNZshC129LJTdmRej WsMlnoGwSCDdmTO3CL68JU66hONt c0F8fBV7U4QuKHPrmjio puozlCD2UCTdMHJmzM74Wl3iwAmz Uw8kVKRdSAD3AVXfxGAwM8HflW6r RwTxMOZxXDPnY8DxzBQu RHlcV093VRbxPvR5XGPowqFcB7Dr LUXsgQqlBfP5v7E1Yg3JY5E1WL15 EW89gCCar8Z1rEH8L3Wc AZPxzsemgtvhzNO9VIAlEBWbsU53 Py8noKurUq6rPHBjXFR9XUXyhIRs X7LgtV7rLuNsRCBgIHVj N3HfwKSnHRerM815CAgbCsW0MGQf peWsH6JwOCEqzDykIeU3i3V7Hw7V QNp5JU12DU14qKGoz5B8 iKS8L4NvINHqmhtotaweeHI5WRHy UMFstW14Xi4sbSoxUr5hOUKxVIO9 LECbrTZfM6WthQ4sPfRw WQGjSHDaN0EcvRXbYTtxS511XBrs VdU8HEXeimDvC8FwRLZacSwiTgS9 o1J1Nt8JUZMzTC09BKD0 kNX1IQ70KX14P9TvVdcyiHIcyJV+ PHRhYmxlIHdpZHRoPScxMDAlJyBz sXulQI3nMd2tRFXhIYZp pVgugJZeOsGrw1ppHAJeACdqTE1c hDlwL0PupZG2HDThi4u5Sp24X86r Y4ZmxBL+IMBouMS7pSI0 rR2oTwDaIjV2LQhlX727EfHczIEl Qiqtt4lra8otwYo6VbS9SMXodbAi nYjrWXY5n1EuYj68M73r DZxmRGVpRUMpVAIuVTVyzBweie7y zW5tIy0+OOVxkPS3lHJ4aI6tSmGk OxS1YCqyQ773KrBnlEHj Yrmwc6xkr4qioMd5YjOcACCzpaUi lXkbSZC2e9UpXb41C4ArpOonj0Eu Snz7bk55uNDtx4Z3tPB0 S9GfMNTfcnlnzUBlfAxeZT9tOUCe djylOPKhaA5rWGKfA4d3OkUfZyY9 LZvfW6GmixE2NYUetMOu OOjlAMG3Z48jp3S4ZBRfGDPlATA6 hSC4lZ2orSjenmrzaZObfXkvvdFq hZcvTZfwEZgoU241BVLw gWoxAQOfqD4rDBIqeMQglGcbGC6h FACxqgrjZzeHSSvYUZVLJY3GJLXu QTwvdGQ+FJBaLPA8eFug BScaAVRutV7aGRTyO6o2DcYbMbZ9 LKweL5XzUEKietcvKw22sH3lEiYh XfO8XBgcG0QslvC7OFIj qARfZNirSOM4V84tr4X4QFUlGIVx JLH7tNC9fK6deUzjueptgYXimFlw vxCdsYgwTCheUYtrL086 PUTklUyqSkFuAkPxHnZ9UDh5L7It Qic0FRYvtHniBH5axERpYOlkZm6y jIluzShvUE9mYIBgznyw QVDjeQ1dKCGpuUBtoMjeTA8lTMNy ogevv333LfWmSDU2QRMenVHmG0Qr pT1uUmDuEIRhQGMuR9Sc lVNhVMjlF203CFvkWfD3MYYkcoZc T4GaQUYghLeaSiX6e0G5Aj75MkFJ ZWFyczwvdGQ+PHRkIHN0 pTbkDGvnBZUkrL8zSLRsE0f1HyHe DxB2KQqvB0KzWTHjnfgfFh24pH5x UoVzIbH7JWlpI8IocfE7 SXPyxQQbYHhjYGG3E91ks6R0ZRCm OQXzPYR2gNJ6oE1gfDlexygnhZSm dDsgdmVydGljYWwtYWxp A320QJQiyYlcHq9plAQ0S8OxXrj3 FFIdzQfwRR9ffPRaPQfuZv9yeAhx iAzxLH4tGSPgpwubVMHx lM5sGQUcyMCphMnfDD3jYTFkdxgd s460FgYhNJX6DWFhpBShF7ZmeV7y YqKaNMUaMKWpS6MbjNEh EPchX019XOmyFhK0XVYbmlYuN3Nt QTRwkAedKwI6h4S6Ed8GrZTiXJHs NP55TV45ZW67R3QlAkmk dGFibGU+PHRhYmxlIHdpZHRoPScx EPUbJkZfcZomQE7fRy2mLTRqGBKv eYizhZZoTbGbv4qaPVPu QDgnAS1ogCcaA9EnnYC9MVUsx1t3 Ig88N38tX8RedAG+TDQplKE6sZI2 nY7eBnImMbO8XUrjB981 TxXwlTMkAptwu0dkv1mtpEt3RvIj JRRrpmEwdThbKXY0s8VhOf26U22s IHdpZHRoPSIyMCUiIHZh sUkrfj7mtB6yUr9+MCFdzNK5fEV4 vG1bNxGiTiZ2LKduF864UdTseONq VjlnQ11fU9TzrOY+PHRy Enh6SCExkGduJQ3plNHcNPduGa9z DJF6FpMsQqTgMPkpR1QcKRNmsfhj ndifaIW7XBFiGGTuiU56 Zb8zgKkyQj1jSKCkKOM1JTYgcGUo O8PewJ6aOfElAKBfBQGxW8UfeLLz MMowA457MWesLaL9EXAz hcKbL9IsGTBvgHilAtG7x9P5Ru4J fIifbBHxSG3yBnKaGFx0D7IcXfq2 QARtiYcwQQ3adYYkUGow Uz2kiCfgyUtyAD3cPNGuudxpo497 AlVci3rbQPRfyUSyURstLVP8A99k r2R5KHXlLHNhFEB0fCO0 jQ0mfMzunoamdTBguXpgchMigMwb AQwpWLwkP837LAWvcHjnBwBTPny8 U5UgSvk3LCYkcXgcGV7y iURhTOvuNv2xxIeltOmaZJ8mSTYb czibu101GaTns1wtSHKasXDkSZgt IPW4L48dv8S7BCCzRNFw ADD3oQR7oT0bnKhyvqxhrHIavFdk dqAluRpxOVvbMUegN518SBHnpDdh Pa6OQzd4D0PjBux1EZOr wEyyHR3tsURtNEgrYq5oxRrfsJvr LC9fJXSjnxxhq856UnHai1qyPRQk yWXjOFehLVY6W03kg8R1 GUOoYFXiOWZ4zIL0yR7rfSqtgsfm tZPvlBffyvNazZsrRXrpTTthB426 IHRvcDsnPlBheWVyOjwv dGQ+JR81hu97T4OxRvjcVua8WXQa BIV8yZX3hB3yKVCbHOtue3Y9tXE8 E0LaeqQhul0bs2lsAMUq Z[employer] (more content not included)... Normal [facility] Office Visit (Cardiology)on 05-31-2022 [...] Metabolic Panel; Status:Active - Retrospective Authorization; Requested for:[id number]; Complete Blood Count; Status:Active - Retrospective Authorization; Requested for:[id number]; Atherosclerosis of coronary artery, Hyperlipidemia Renew: Atorvastatin [...] a smoker Tobacco Use Screening; Status:Complete; Done: [id number] Patient Instructions Please bring all medicines, vitamins, [...] several months ago by vascular surgery at [facility]. Lipid profile from recent testing was reviewed [...] he had venous stripping last year at [facility] 6. Sleep apnea on CPAP machine with compliance. Summer Deshpande MD, [facility] Surgical History Problems History of Cardiac [...] for co (more content not included)... Normal [employer] Tobacco Screening.on 023 Fall risk assessment a) No falls within the last year [facility] [employer] DO Work Phone: Tobacco use status CP b) No [facility] [employer] DO Work Phone: Tobacco Screening. Yes [facility] [employer] [address] DO Work Phone: Xu 05-30-2022 ALT No additional P-5'-P [Catalytic activity/Vol] 14 Int._Unit/L Normal 6-46 [facility] Comment on above: Performed By: #### 2 [id number], [id number], [id number] #### [facility] [address] [place] [address] [place] 05-30-2022 AST [Catalytic activity/Vol] 16 Int._Unit/L Normal 5-43 [facility] Comment on above: Performed By: #### 2 [id number], [id number] #### [facility] [address] [place] [address] CHEMISTRYOrdered By: SYSTEM SYSTEM on 05-30-2022 ALT [...] Remisol Consent for Treatmenton Consent for Treatment [id number]:127 Normal [facility] Lipid Panelon 05-30-2022 Cholesterol [Mass/Vol] 138 mg/dL Normal 120-200 [facility] Comment on above: Performed By: #### 2 [id number], [id number], [id number] #### [facility] [address] [place] [address] Cholesterol in HDL [Mass/Vol] 49 mg/dL Invalid Interpretation Code [facility] Comment on above: Result Comment: HDL > or equal to 60 mg/dL: Low cardiovascular risk HDL < 40 mg/dL : High cardiovascular risk Performed By: #### 2 [id number], [id number], [id number] #### [facility] [address] [place] [address] Cholesterol in LDL [Mass/Vol] 71 mg/dL Normal <=129 [facility] Comment on above: Performed By: #### 2 [id number], [id number] #### [facility] [address] [place] [address] Cholesterol in VLDL [Mass/Vol] 16 mg/dL Normal 7-40 [facility] Comment on above: Performed By: #### [id number] #### [facility] Laboratory [address] [place] [address] Triglyceride [Mass/Vol] 82 mg/dL Normal <=149 [facility] Comment on above: Performed By: #### 2 [id number] #### [facility] Laboratory [address] [place] [address] Physician Orderon 05-30-2022 Physician Order [id number]:127 Normal [facility] CHEMISTRYOrdered By: SYSTEM SYSTEM on 02-06-2022 Prostate specific Ag [Mass/Vol] ng/mL Normal 0.1 - 3.5 ng/mL [facility] Remisol Falls Screening (Age 18+)on 11-16-2021 Adult depression screening assessment No [facility] [employer] 250 DO Work Phone: Fall risk assessment a) No falls within the last year [facility] [employer] 250 DO Work Phone: Tobacco Screening.on 022 Fall risk assessment b) One or more falls in the last year [facility] [employer] 250 DO Work Phone: Tobacco use status CP b) No [facility] [employer] 250 DO Work Phone: Vital Signs Date Time Vital Sign Value Performing Clinician Facility 05-24-2023 13:10-0500 Blood Pressure Location Izaguirre Sarmini [facility] 05-24-2023 13:10-0500 Diastolic blood pressure 82 mm[Hg] Izaguirre Sarmini [facility] 05-24-2023 13:10-0500 Heart rate 68 /min Izaguirre Sarmini [facility] 05-24-2023 13:10-0500 Respiratory rate 16 /min Izaguirre Sarmini [facility] 05-24-2023 13:10-0500 Systolic blood pressure 138 mm[Hg] Izaguirre Sarmini [facility] 05-09-2023 11:00-0500 Diastolic blood pressure 78 mm[Hg] Izaguirre Sarmini [facility] 05-09-2023 11:00-0500 Heart rate 53 /min Izaguirre Sarmini [facility] 05-09-2023 11:00-0500 Mean blood pressure 99 mm[Hg] Izaguirre Sarmini [facility] 05-09-2023 11:00-0500 Respiratory rate 17 /min Izaguirre Sarmini [facility] 05-09-2023 11:00-0500 SaO2% (BldA) [Mass fraction] 97 % Izaguirre Sarmini [facility] 05-09-2023 11:00-0500 Systolic blood pressure 141 mm[Hg] Izaguirre Sarmini [facility] 05-09-2023 10:45-0500 Diastolic blood pressure 75 mm[Hg] Izaguirre Sarmini [facility] 05-09-2023 10:45-0500 Heart rate 60 /min Izaguirre Sarmini [facility] 05-09-2023 10:45-0500 Mean blood pressure 93 mm[Hg] Izaguirre Sarmini [facility] 05-09-2023 10:45-0500 Respiratory rate 23 /min Izaguirre Sarmini [facility] 05-09-2023 10:45-0500 SaO2% (BldA) [Mass fraction] 96 % Izaguirre Sarmini [facility] 05-09-2023 10:45-0500 Systolic blood pressure 128 mm[Hg] Izaguirre Sarmini [facility] 05-09-2023 10:40-0500 Diastolic blood pressure 85 mm[Hg] Izaguirre Sarmini [facility] 05-09-2023 10:40-0500 Heart rate 59 /min Izaguirre Sarmini [facility] 05-09-2023 10:40-0500 Mean blood pressure 97 mm[Hg] Izaguirre Sarmini [facility] 05-09-2023 10:40-0500 Respiratory rate 12 /min Izaguirre Sarmini [facility] 05-09-2023 10:40-0500 SaO2% (BldA) [Mass fraction] 95 % Izaguirre Sarmini [facility] 05-09-2023 10:40-0500 Systolic blood pressure 122 mm[Hg] Izaguirre Sarmini [facility] 05-09-2023 10:30-0500 Body temperature 98.06 [degF] Izaguirre Sarmini [facility] 05-09-2023 10:25-0500 Respiratory rate 16 /min Izaguirre Sarmini [facility] 05-09-2023 10:20-0500 Respiratory rate 15 /min Izaguirre Sarmini [facility] 05-09-2023 10:15-0500 Respiratory rate 15 /min Izaguirre Sarmini [facility] 05-09-2023 09:35-0500 Blood Pressure Location Izaguirre Sarmini [facility] 05-09-2023 09:35-0500 Body temperature 98.06 [degF] Izaguirre Sarmini [facility] 05-02-2023 16:00-0500 Body height 180.34 cm Priscila Mccormack Other [facility] Other 05-02-2023 16:00-0500 Body mass index (BMI) [Ratio] 35.56 kg/m2 Priscila Mccormack Other [facility] Other 05-02-2023 16:00-0500 Body weight 115.67 kg Priscila Mccormack Other [facility] Other 05-02-2023 16:00-0500 Diastolic blood pressure 90 mm[Hg] Priscila Mccormack Other [facility] Other 05-02-2023 16:00-0500 SaO2% (BldA) [Mass fraction] 97 % Priscila Mccormack Other [facility] [employer] Other 05-02-2023 16:00-0500 Systolic blood pressure 130 mm[Hg] Priscila Mccormack Other [facility] [employer] Other 03-18-2023 10:36-0500 Blood Pressure Location Izaguirre Sarmini [facility] 03-18-2023 10:36-0500 Diastolic blood pressure 82 mm[Hg] Izaguirre Sarmini [facility] 03-18-2023 10:36-0500 Heart rate 70 /min Izaguirre Sarmini [facility] 03-18-2023 10:36-0500 Respiratory rate 18 /min Izaguirre Sarmini [facility] 03-18-2023 10:36-0500 Systolic blood pressure 136 mm[Hg] Izaguirre Sarmini [facility] 03-06-2023 15:22-0500 Diastolic blood pressure 85 mm[Hg] ANJELICA MATTHEW [facility] 03-06-2023 15:22-0500 Heart rate 74 /min ANJELICA MATTHEW [facility] 03-06-2023 15:22-0500 Systolic blood pressure 137 mm[Hg] ANJELICA MATTHEW [facility] 12-17-2022 13:33-0400 Body height 180.34 cm Haven Encinas Work Phone: [facility] 250 DO Work Phone: 12-17-2022 13:33-0400 Body mass index (BMI) [Ratio] 34.84 kg/m2 Haven Sindy Encinas Work Phone: [facility] 250 DO Work Phone: 12-17-2022 13:33-0400 Body surface area Derived from formula 2.32 m2 Haven Sindy Encinas Work Phone: [facility] 250 DO Work Phone: 12-17-2022 13:33-0400 Body weight 113.31 kg Haven Sindy Encinas Work Phone: [facility] [place] 250 DO Work Phone: 12-17-2022 13:33-0400 Diastolic blood pressure 72 mm[Hg] Haven Sindy Encinas Work Phone: [facility] 250 DO Work Phone: 12-17-2022 13:33-0400 Heart rate 54 /min Haven Sindy LarsonEncinas Work Phone: [facility] 250 DO Work Phone: 12-17-2022 13:33-0400 Systolic blood pressure 118 mm[Hg] Haven Sindy Encinas Work Phone: [facility] [place] 250 DO Work Phone: 10-03-2022 13:51-0400 Blood Pressure Location ANJELICA NATION [facility] 10-03-2022 13:51-0400 Diastolic blood pressure 74 mm[Hg] ANJELICA MICHELERY [facility] 10-03-2022 13:51-0400 Heart rate 68 /min ANJELICA MATTHEW [facility] 10-03-2022 13:51-0400 Respiratory rate 16 /min ANJELICA NATION [facility] 10-03-2022 13:51-0400 Systolic blood pressure 132 mm[Hg] ANJELICA NATION [facility] 06-24-2022 22:35-0500 Nursing Progress Note Reason Other: portable XR at bedside at this time. Josh Topher [facility] 06-24-2022 21:44-0500 Body temperature 97.7 [degF] Josh Topher [facility] 06-24-2022 21:44-0500 Diastolic blood pressure 91 mm[Hg] Josh Topher [facility] 06-24-2022 21:44-0500 Heart rate 63 /min Josh Topher [facility] 06-24-2022 21:44-0500 Respiratory rate 18 /min Josh Topher [facility] 06-24-2022 21:44-0500 SaO2% (BldA) [Mass fraction] 98 % Josh Topher [facility] 06-24-2022 21:44-0500 Systolic blood pressure 178 mm[Hg] Josh Topher [facility] 05-31-2022 09:15-0500 Body height 180.34 cm Haven Encinas Work Phone: [facility] [employer] 250 DO Work Phone: 05-31-2022 09:15-0500 Body mass index (BMI) [Ratio] 35.29 kg/m2 Haven Encinas Work Phone: [facility] [employer] 250 DO Work Phone: 05-31-2022 09:15-0500 Body surface area Derived from formula 2.33 m2 Haven Sindy LarsonEncinas Work Phone: [facility] [place] 250 DO Work Phone: 05-31-2022 09:15-0500 Body weight 114.76 kg Haven Larsoners Work Phone: [facility] 250 DO Work Phone: 05-31-2022 09:15-0500 Diastolic blood pressure 84 mm[Hg] Haven Larsoners Work Phone: [facility] 250 DO Work Phone: 05-31-2022 09:15-0500 Heart rate 68 /min Haven Encinas Work Phone: [facility] [employer] 250 DO Work Phone: 05-31-2022 09:15-0500 Systolic blood pressure 122 mm[Hg] Havne Encinas Work Phone: [facility] [employer] 250 DO Work Phone: 01-31-2022 16:00-0400 Body height 180.34 cm Priscila Mccormack Other [facility] Other 01-31-2022 16:00-0400 Body mass index (BMI) [Ratio] 35.28 kg/m2 Priscila Mccormack Other [facility] Other 01-31-2022 16:00-0400 Body temperature 97.1 [degF] Priscila Mccormack Other [facility] Other 01-31-2022 16:00-0400 Body weight 114.76 kg Priscila Mccormack Other [facility] Other 10-05-2022 16:00-0400 Diastolic blood pressure 78 mm[Hg] Priscila Mccormack Other [facility] Other 01-31-2022 16:00-0400 SaO2% (BldA) [Mass fraction] 96 % Priscila Mccormack Other [facility] Other 01-31-2022 16:00-0400 Systolic blood pressure 123 mm[Hg] Priscila Mccormack Other [facility] Other 01-29-2022 09:21-0400 Blood Pressure Location Milla Montoya [facility] 01-29-2022 09:21-0400 Diastolic blood pressure 80 mm[Hg] Milla Montoya [facility] 01-29-2022 09:21-0400 Heart rate 90 /min Milla Montoya [facility] 01-29-2022 09:21-0400 SaO2% (BldA) [Mass fraction] 100 % Milla Montoya [facility] 01-29-2022 09:21-0400 Systolic blood pressure 146 mm[Hg] Milla Montoya [facility] 12-11-2021 23:00-0400 Diastolic blood pressure 80 mm[Hg] Reji Dickinson [facility] 12-11-2021 23:00-0400 Heart rate 58 /min Reji Dickinson [facility] 12-11-2021 23:00-0400 SaO2% (BldA) [Mass fraction] 98 % Reji Dickinson [facility] 12-11-2021 23:00-0400 Systolic blood pressure 148 mm[Hg] Reji Dickinson [facility] 12-11-2021 22:33-0400 Body temperature 98.24 [degF] Reji Dickinson [facility] 12-11-2021 22:33-0400 Diastolic blood pressure 76 mm[Hg] Reji Dickinson [facility] 12-11-2021 22:33-0400 Heart rate 57 /min Reji Dickinson [facility] 12-11-2021 22:33-0400 Respiratory rate 16 /min Reji Dickinson [facility] 12-11-2021 22:33-0400 SaO2% (BldA) [Mass fraction] 97 % Reji iDckinson [facility] 12-11-2021 22:33-0400 Systolic blood pressure 159 mm[Hg] Reji Dickinson [facility] 11-16-2021 09:24-0400 Body height 180.34 cm Haven Encinas Work Phone: [facility] [employer] 250 DO Work Phone: 11-16-2021 09:24-0400 Body mass index (BMI) [Ratio] 35.29 kg/m2 Haven Encinas Work Phone: [facility] [employer] 250 DO Work Phone: 11-16-2021 09:24-0400 Body surface area Derived from formula 2.33 m2 Haven Encinas Work Phone: [facility] 250 DO Work Phone: 11-16-2021 09:24-0400 Body weight 114.76 kg Haven Encinas Work Phone: [facility] 250 DO Work Phone: 11-16-2021 09:24-0400 Diastolic blood pressure 84 mm[Hg] Haven R Encinas Work Phone: [facility] 250 DO Work Phone: 11-16-2021 09:24-0400 Heart rate 62 /min Haven R Encinas Work Phone: [facility] 250 DO Work Phone: 11-16-2021 09:24-0400 Systolic blood pressure 122 mm[Hg] Haven R Encinas Work Phone: [facility] [place] 250 DO Work Phone: 05-08-2021 13:46-0500 Diastolic blood pressure 84 mm[Hg] Haven R Encinas Work Phone: [facility] 250 DO Work Phone: 05-08-2021 13:46-0500 Systolic blood pressure 126 mm[Hg] Haven R Encinas Work Phone: [facility] 250 DO Work Phone: 05-08-2021 13:41-0500 Diastolic blood pressure 93 mm[Hg] Haven R Encinas Work Phone: [facility] 250 DO Work Phone: 05-08-2021 13:41-0500 Systolic blood pressure 132 mm[Hg] Haven R Encinas Work Phone: [facility] [place] 250 DO Work Phone: 05-08-2021 13:39-0500 Body height 180.34 cm Haven R Encinas Work Phone: [facility] [place] 250 DO Work Phone: 05-08-2021 13:39-0500 Body mass index (BMI) [Ratio] 35.01 kg/m2 Haven R Encinas Work Phone: [facility] 250 DO Work Phone: 05-08-2021 13:39-0500 Body surface area Derived from formula 2.32 m2 Haven Encinas Work Phone: [facility] 250 DO Work Phone: 05-08-2021 13:39-0500 Body weight 113.85 kg Haven Encinas Work Phone: [facility] 250 DO Work Phone: 05-08-2021 13:39-0500 Diastolic blood pressure 87 mm[Hg] Haven Encinas Work Phone: [facility] [place] 250 DO Work Phone: 05-08-2021 13:39-0500 Heart rate 60 /min Haven Encinas Work Phone: [facility] 250 DO Work Phone: 05-08-2021 13:39-0500 Systolic blood pressure 136 mm[Hg] Haven Encinas Work Phone: [facility] 250 DO Work Phone: Encounters Encounter Date Encounter Type Care Provider Facility Start: 06-18-2023 End: 06-18-2023 ambulatory JESUS PANDEY Not Available Start: 05-24-2023 End: 05-25-2023 ambulatory Izaguirre Talal Sarmini Facility:[facility] Start: 05-24-2023 End: 05-25-2023 ambulatory Izaguirre Talal Sarmini Facility:[facility] Start: 05-24-2023 End: 05-24-2023 Patient encounter procedure Izaguirre Talal Sarmini [facility] Start: 05-24-2023 End: 05-24-2023 Patient encounter procedure Izaguirre Talal Sarmini [facility] Start: 05-14-2023 End: 05-14-2023 ambulatory STEPHANIE RODNEY Not Available Start: 05-09-2023 End: 2023 ambulatory Izaguirre Talal Sarmini Facility:[facility] Start: 05-09-2023 End: 05-09-2023 Patient encounter procedure Izaguirre Talal Sarmini [facility] Start: 05-06-2023 End: 05-06-2023 ambulatory Priscila Mccormack Other [employer] Other Start: 05-06-2023 Telephone encounter Priscila Mccormack [facility] Start: 05-02-2023 End: 05-02-2023 Patient encounter procedure DO Haven Larsoners III Work Phone: [facility] Work Phone: Start: 05-02-2023 End: 05-02-2023 ambulatory DO Haven R Encinas III Work Phone: [facility] Work Phone: Start: 05-02-2023 Office outpatient vi sit 15 minutes Priscilaalex Mccormack [facility] Start: 03-25-2023 End: 03-25-2023 ambulatory KAYLI PARSON Not Available Start: 03-18-2023 End: 03-19-2023 ambulatory Haven R Encinas Facility:[facility] Start: 03-18-2023 End: 03-18-2023 Patient encounter procedure Izaguirre Talal Sarmini [facility] Start: 03-06-2023 End: 03-07-2023 ambulatory ANJELICA NATION Facility:[facility] Start: 03-06-2023 End: 03-06-2023 Patient encounter procedure ANJELICA NATION [facility] Start: 03-05-2023 End: 03-06-2023 ambulatory ANJELICA NATION Facility:[facility] Start: 03-05-2023 End: 03-05-2023 Patient encounter procedure ANJELICA NATION [facility] Start: 02-06-2023 End: 02-07-2023 ambulatory Todd CRUZ Facility:[facility] Start: 02-06-2023 End: 02-06-2023 Lab Drop off Todd CRUZ [facility] Start: 02-06-2023 End: 02-06-2023 Patient encounter procedure Todd CRUZ [facility] Start: 12-17-2022 Office outpatient vi sit 25 minutes Haven Encinas Work Phone: [facility] [place] 250 DO Work Phone: Start: 12-17-[address] Haven Encinas III Facility: Start: 11-19-2022 ambulatory Izaguirre Jessiemarium Facili ty:[facility] Start: 10-16-2022 End: 10-17-2022 ambulatory Todd CRUZ Facility:[facility] Start: 10-16-2022 End: 10-16-2022 Patient encounter procedure Todd CRUZ [facility] Start: 10-11-2022 End: 10-12-2022 ambulatory ANJELICA NATION Facility:[facility] Start: 10-11-2022 End: 10-11-2022 Patient encounter procedure ANJELICA NATION [facility] Start: 10-03-2022 End: 10-04-2022 ambulatory ANJELICA NATION Facility:[facility] Start: 10-03-2022 End: 10-03-2022 Lab Drop off ANJELICA NATION [facility] Start: 10-03-2022 End: 10-03-2022 Patient encounter procedure ANJELICA NATION [facility] Robert Start: 09-25-2022 Rx Renewal [facility] Work [facility]: Start: 07-02-2022 End: 07-03-2022 ambulatory Tulio Vaughan Facility:[facility] Start: 07-02-2022 End: 07-02-2022 Patient encounter procedure Tulio Vaughan [facility] Start: 06-24-2022 End: 06-25-2022 Emergency department patient visit Josh Valentine Obando Facility:[facility] Start: 06-24-2022 End: 06-24-2022 Emergency department patient visit Josh SParveen Obando [facility] Start: 06-14-2022 End: 06-14-2022 ambulatory Priscila Mccormack Other [facility] Other Start: 06-14-2022 Telephone encounter Priscila Mccormack [facility] Start: 05-31-[address] Summer Deshpande Facility: Start: 05-31-2022 Office outpatient vi sit 25 minutes Haven Encinas Work Phone: [facility] [employer] 250 DO Work Phone: Start: 05-30-2022 End: 05-31-2022 ambulatory Summer Deshpande Facility:[facility] Start: 05-30-2022 End: 05-30-2022 Patient encounter procedure Summer Deshpande [facility] Start: 02-06-2022 End: 02-06-2022 Patient encounter procedure Todd CRUZ [facility] Start: 01-31-2022 End: 01-31-2022 Patient encounter procedure DO Haven Encinas III Work Phone: [facility] Start: 01-31-2022 End: 01-31-2022 ambulatory DO Haven Encinas III Work Phone: [facility] Work Phone: Start: 01-31-2022 Office outpatient vi sit 25 minutes [facility] Start: 01-29-2022 End: 01-29-2022 Patient encounter procedure Milla Montoya [facility] Start: 01-18-2022 End: 01-18-2022 Patient encounter procedure Milla Montoya [facility] Start: 12-11-2021 End: 12-11-2021 Emergency department patient visit Reji Dickinson [facility] Start: 11-16-2021 Office outpatient vi sit 25 minutes [facility] Work Phone: Start: 10-25-2021 Rx Renewal Haven Lee rs Work Phone: [facility] 250 DO Work Phone: Start: 08-23-2021 End: 08-23-2021 Patient encounter procedure DO Havenamy Encinas III Work Phone: [facility] Start: 05-08-2021 Office outpatient vi sit 25 minutes Haven Encinas Work Phone: -[facility] 250 DO Work Phone: Procedures Date Procedure Procedure Detail Performing Clinician Start: 05-09-2023 Colonoscopy Izaguirre Jessiemini Start: 05-09-2023 Esophagogastroduodenoscopy Izaguirre Zachariah ini Start: 10-16-2022 Cystourethroscopy with dilation of [...] Implantation of radioactive seed into prostate Reji Alok Start: 08-12-2007 Laser ablation of prostate Reji Alok Start: 07-15-2007 Cystoscopy Reji Dickinson Comment on above: 12/02/07, 05/1013, 05/1317 Start: 07-15-2007 Urodynamic studies Reji Dickinson Start: 05-24-2000 Transrectal biopsy of prostate using ultrasound guidance Reji Dickinson Comment on above: 01/23/11 Arthroplasty of knee Haven Callahan Encinas Work Phone: Comment on above: RIGHT AND LEFT; Cardiac catheterization Katty Encinas Work Phone: Herniated structure (morphologic abnormality) Reji Dickinson Malignant tumor of p rostate (disorder) Reji Dickinson Comment on above: radiation seed implant Percutaneous translu luciana coronary angioplasty Haven Sindy Encinas Work Phone: Procedure on neck Haven Callahan Encinas Work Phone: Procedure on prostate Raquelcuong mary Encinas Work Phone: Sleep studies Reji Alok Stented coronary artery (finding) Reji Dickinson Total colonoscopy Haven Encinas Work Phone: Vascular surgery procedure R olland Sindy Encinas Work Phone: Plan of Treatment Date Care Activity Detail Author Start: 03-12-2024 ambulatory Ambulatory Facility:[facility] Start: 06-25-2023 FUV, Provider: Summer Deshpande, Status: Pen, Time: 9:20 AM FUV, Provider: Summer Deshpande, Status: Pen, Time: 9:20 AM [facility] 250 DO Work Phone: Start: 11-29-2022 FUV, Provider: Summer Deshpande, Status: Pen, Time: 9:10 AM FUV, Provider: Summer Deshpande, Status: Pen, Time: 9:10 AM [facility] 250 DO Work Phone: Start: 05-31-2022 FUV, Provider: Summer Deshpande, Status: Pen, Time: 9:00 AM FUV, Provider: Summer Deshpande, Status: Pen, Time: 9:00 AM [place] [address] DO Work Phone: Start: 11-16-2021 FUV, Provider: Summer Deshpande, Status: Pen, Time: 9:00 AM FUV, Provider: Summer Deshpande, Status: Pen, Time: 9:00 AM [place] [address] DO Work Phone: Immunizations Immunization Date Immunization Notes Care Provider [facility] 02-19-2023 influenza virus vaccine, unspecified formulation ANJELICA MICHELERY [facility] 02-05-2022 Fluzone High-Dose Quadrivalent 0.7 ML Intramuscular Suspension Prefilled Syringe Haven Sindy Encinas Work Phone: [place] [address] DO Work Phone: 02-05-2022 influenza virus vaccine, unspecified formulation Wheeler Deshpande [facility] 01-16-2022 SARS-CoV-2 (COVID-19 ) [id number] Summer Deshpande [facility] 03-01-2021 Moderna COVID-19 Vaccine 100 MCG/0.5ML Intramuscular Suspension Haven Encinas Work Phone: [place] [address] DO Work Phone: 02-21-2021 influenza virus vaccine, unspecified formulation Wheeler Deshpande [facility] 02-21-2021 influenza, high dose seasonal, preservative-free Haven Larsoners Work Phone: [place] [address] DO Work Phone: 12-29-2020 tetanus toxoid, redu ivan diphtheria toxoid, and acellular pertussis vaccine, adsorbed Haven Encinas Work Phone: [facility] 250 DO Work Phone: 06-22-2020 Moderna COVID-19 Vaccine 100 MCG/0.5ML Intramuscular Suspension Haven Encinas Work Phone: [facility] 250 DO Work Phone: Comment on above: Reason for Medicatio n: Other (see comment) 05-25-2020 Moderna COVID-19 Vaccine 100 MCG/0.5ML Intramuscular Suspension Haven Encinas Work Phone: [facility] 250 DO Work Phone: Comment on above: Reason for Medicatio n: Other (see comment) 02-08-2020 influenza virus vaccine, unspecified formulation Summer Deshpande [facility] 02-08-2020 influenza, high dose seasonal, preservative-free Haven Encinas Work Phone: [place] [address] DO Work Phone: 05-16-2018 pneumococcal conjuga te vaccine, 13 valent Haven Encinas Work Phone: [facility] 05-08-2018 pneumococcal conjuga te vaccine, 13 valent Haven Encinas Work Phone: [place] [address] DO Work Phone: 04-29-2018 influenza virus vaccine, unspecified formulation Haven Encinas Work Phone: [place] [address] DO Work Phone: 04-28-2018 influenza virus vaccine, unspecified formulation Summer Deshpande [facility] 05-08-2017 pneumococcal polysaccharide vaccine, 23 valent Haven Encinas Work Phone: [place] [address] DO Work Phone: 02-27-2017 influenza virus vaccine, unspecified formulation Haven Larsoners Work Phone: [place] [address] DO Work Phone: 02-16-2017 influenza virus vaccine, unspecified formulation Wheeler Deshpande [facility] 02-16-2017 influenza, seasonal, injectable, preservative free Haven Encinas Work Phone: [place] [address] DO Work Phone: 05-08-2016 influenza virus vaccine, unspecified formulation Haven Encinas Work Phone: [place] [address] DO Work Phone: 01-30-2016 influenza virus vaccine, unspecified formulation Wheeler Deshpande [facility] 01-30-2016 influenza, seasonal, injectable Haven Encinas Work Phone: [place] [address] DO Work Phone: 01-30-2016 pneumococcal polysaccharide vaccine, 23 valent Haven Encinas Work Phone: [facility] 03-29-2015 pneumococcal vaccine , unspecified formulation Haven Larsoners Work Phone: [place] [address] DO Work Phone: 02-27-2015 influenza virus vaccine, unspecified formulation Haven Larsoners Work Phone: [place] [address] DO Work Phone: 02-22-2015 influenza virus vaccine, unspecified formulation Wheeler Deshpande [facility] 04-16-2014 pneumococcal polysaccharide vaccine, 23 valent Reji Dickinson [facility] Comment on above: Early/Late Reason: Marian romeo Judgment 03-03-2014 influenza virus vaccine, unspecified formulation Haven Encinas Work Phone: [place] [address] DO Work Phone: 02-16-2014 influenza virus vaccine, unspecified formulation Wheeler Deshpande [facility] 02-16-2014 influenza, seasonal, injectable Haven Encinas Work Phone: [place] [address] DO Work Phone: 02-18-2013 influenza virus vaccine, unspecified formulation Wheeler Deshpande [facility] 02-18-2013 influenza, high dose seasonal, preservative-free Haven Encinas Work Phone: [place] [address] DO Work Phone: 01-27-2013 influenza virus vaccine, unspecified formulation Haven R Encinas Work Phone: [place] [address] DO Work Phone: 01-04-2013 zoster vaccine, live Wheeler Deshpande [facility] 12-28-2012 zoster vaccine, live Haven R Encinas Work Phone: [place] [address] DO Work Phone: NEGATED: Highlighted row has not occurred!02-18-2023 influenza virus vaccine, unspecified formulation ANJELICA NATION [facility] Health Payers Date Payer Category Payer Private Health Insurance [id number] 2022 [facility] [id number] 1945 Unknown [id number] 2.16. 840.1.128544.3.579.2.356 1945 Unknown [id number] 2.16. 840.1.013619.3.579.2.356 1945 Unknown [id number] 2.16.8 40.1.766986.3.579.2.72 1945 Unknown [id number] 2.16.8 40.1.067819.3.579.2. 1945 Unknown [id number] 2.16.8 40.1.846524.3.579.2.72 1945 Unknown [id number] 2.16.8 40.1.375213.3.579.2.72 1945 Unknown [id number] 2.16.8 40.1.525108.3.579.2.72 1945 Unknown [id number] 2.16.8 40.1.863601.3.579.2.727 1945 Unknown [id number] 2.16.8 40.1.051415.3.579.2.72 1945 Unknown [id number] 2.16.8 40.1.220569.3.579.2.72 1945 Unknown [id number] 2.16.8 40.1.328296.3.579.2.72 1945 Unknown [id number] 2.16.8 40.1.635565.3.579.2. 1945 Unknown [id number] 2.16.8 40.1.769453.3.579.2.72 1946 Unknown [id number] 2.16.8 40.1.259420.3.579.27 1945 Unknown [id number] 2.16.8 40.1.750107.3.579.2.727 1946 Unknown [id number] 2.16.8 40.1.290397.3.579.2.727 1946 Unknown [id number] 2.16.8 40.1.326955.3.579.2.727 1946 Unknown [id number] 2.16.8 40.1.197695.3.579.2.727 1945 Unknown [id number] 2.16.84 0.1.319809.3.579.2.1259 1945 Unknown [id number] 2.16.84 0.1.871361.3.579.2.1259 1945 Unknown [id number] 2.16.840 .1.496153.3.579.2.1259 Private Health Insurance [facility] [id number] Unknown [employer]ET[employer] Unknown [id number] 2.16.8 40.1.914546.3.579.2.531 Social History Date Type Detail Facility No alcohol use No alcohol use [facility] 250 DO Work Phone: Comment on above: 1-2 cups of coffee; Start: 1945 Sex Assigned At Male F [facility] Tobacco [facility] Comment on above: Denies. Sex Assigned At Male [facility] Tobacco smoking status No Smokin g Status Entered [facility] Start: 02-07-2022 End: 05-24-2023 Tobacco smoking status Never smoked tobacco (finding) [facility] Tobacco smoking status Never [facility] Medical Equipment Procedure Code Equipment Code Equipment Origin al Text Equipment Identifier Dates KNEE TOTAL ROBOT ARTHROPLASTY Tulio Vaughan DO 06/27/21 Non Biological Knee R {[id number]{ 10}[id number]{17}23 0630 FDA Start: 06-27-2021 Unknown Unknown 05/09/23 Non Biological Unknown FDA Start: 05-09-2023 FDA Start: 05-09-2023 Unknown Unknown 05/09/23 Non Biological Unknown FDA Start: 05-09-2023 FDA Start: 05-09-2023 Unknown Unknown 05/09/23 Non Biological Unknown FDA Start: 05-09-2023 FDA Start: 05-09-2023 Functional Status Date Assessment Result Facility 05-24-2023 Functional Status N/A [facility] 05-09-2023 Functional Status N/A [facility] 03-18-2023 Functional Status N/A [facility] 03-06-2023 Functional Status N/A [facility] [place] 10-16-2022 Functional Status N/A [facility] 10-03-2022 Functional Status N/A [facility] [place] 06-24-2022 Functional Status N/A [facility] 01-29-2022 Functional Status No [facility] 12-11-2021 Functional Status N/A [facility] Clinical Notes 04-29-2011 to 2023 Note Date & Type Note Facility 2023 Note [id number] [facility] 05-09-2023 Note Endoscopy Care [...] Document Re-Released: 10/07/2006 ExitCare? Patient Information ?2009 [employer]. Colonoscopy Care After Surgery Please read the [...] You (more content not included)... [facility] 05-09-2023 Hospital Discharg e instructions Patient Education 05/09/2023 10:37:16 Endoscopy, Care After Procedure [facility] (CUSTOM) Endoscopy Care After Procedure Please read [...] blood. Document Released: 11/27/2004 Document Re-Released: 10/07/2006 [facility] Patient Information 2010 [employer]. 05/09/2023 10:37:12 Siu's Esophagus Siu's Esophagus Siu's [...] drinks. ?Tomatoes and foods made with tomatoes. ?[place] or spicy foods. ?Chocolate and peppermint. Do not drink alcohol. General instructions Take opgr-exp-puoupcm and prescription medicines only as told by [...] provider. Document Revised: 07/02/2020 Document Reviewed: 07/02/2020 Easy Food Patient Education 2022 [employer]. 05/09/2023 10:36:59 Esophagitis Esophagitis Esophagitis is inflammation [...] Follow these instructions at home: Medicines Take wwrd-tsf-okiabwu and prescription medicines only as told by [...] powder, vinegar, hot sauces, and barbecue sauce. ?Wetzel fruit juices and citrus fruits, such as oranges, mati, and limes. ?Tomato-based foods, such as red sauce, chili, salsa, and pizza with red sauce. ?Fried and fatty foods, such as donuts, kiswahili fries, potato chips, and high-fat dressings. ?High-fat [...] provider. Document Revised: 10/24/2020 Document Reviewed: 10/24/2020 Easy Food Patient Education 2022 [employer]. 05/09/2023 10:36:53 Gastritis, Adult, Jmzp-zt-Ancw Gastritis, Adult Gastritis is irritation and swelling [...] Follow these instructions at home: Medicines Take wkel-zbh-owjlkna and prescription medicines only as told by [...] provider. Document Revised: 08/19/2021 Document Reviewed: 08/19/2021 Easy Food Patient Education 2022 [employer]. 05/09/2023 10:36:47 Hiatal Hernia Hiatal Hernia A [...] reduce GERD symptoms. Medicines. These may include: ?Dcda-iqn-kmpgvpw antacids. ?Medicines that make your stomach empty [...] may include: ?Fatty foods, like fried foods. ?Wetzel fruits, like oranges or lemon. ?Other foods [...] Do not drink alcohol. General instructions Take vamj-eaj-zlbqcvw and prescription medicines only as told by [...] provider. Document Revised: 06/12/2022 Document Reviewed: 06/12/2022 Easy Food Patient Education 2022 [employer]. 05/09/2023 10:36:43 Colonoscopy, Care After Surgery Salam [...] hard liquor (44 mL). General instructions Take qtae-fne-vyxarmi and prescription medicines only as told by [...] provider. Document Revised: 08/03/2020 Document Reviewed: 08/03/2020 Easy Food Patient Education 2022 [employer]. 05/09/2023 10:36:39 Diverticulosis [facility] (CUSTOM) Diverticulosis Many [...] unsweetened, w/added ascorbic acid 1 cup 0.5 [place] 1 cup 0.7 Vegetables Cooked Green beans 1 cup 4.0 Carrots 1/2 cup sliced 2.3 Peas 1 cup 8.8 Potato (baked, with skin) 1 medium potato 3.8 Raw [place] (with peel) 1 cucumber 1.5 Lettuce 1 [...] 8.7 Peanuts 1/2 cup 7.9 [facility]. SEEK IMMEDIATE MEDICAL CARE IF: You [...] Information adapted from: ExitCare Patient Information 2009 [employer]. [employer] 2012 http://www.Fluid Stone/contents /kyvpetjdxywr-kpnuorl-nynisi-the -basics 05/09/2023 10:36:37 Hemorrhoids, Vtmg-dd-Fjby Hemorrhoids Hemorrhoids are swollen veins that may [...] 3 times a day. General instructions Take riwt-skb-bfhrndf and prescription medicines only as told by [...] provider. Document Revised: 10/25/2021 Document Reviewed: 10/25/2021 Easy Food Patient Education 2022 [employer]. Follow Up Care 03/18/2023 11:12:58 With:Tram DOUGLASS, JESSE Wahl, [facility] Address: [address], [address] [phone] When: Unknown Comments:Call for any problems. Office to call for follow up appointment. [facility] 05-02-2023 Evaluation note Encounter Date Diagnosis Assessment [...] prescription. A prescription was sent to the [employer] for new supplies throughout the year, as [...] in a timely fashion. Do not smoke. [facility] Other 11-08-2023 Hospital Discharge instructions Patient Education [...] treatment? Where to find more information The [employer]: www.cancer.org [employer]: www.auanet.org Contact a health care [...] provider. Document Revised: 10/09/2021 Document Reviewed: 10/09/2021 Easy Food Patient Education 2022 [employer] Follow Up Care 02/07/2022 09:23:28 With:MATTHEW CASTRO, ANJELICA Meza, URL Address: [facility] [address] [facility] [place] [address] [phone] When: Unknown Comments:1 yr w/ PSA [facility] [place] 10-09-2023 Note From: Jane Li I To: [facility] - Administrative; Sent: 11/26/2022 15:31:32 EDT Show up: 01/27/2023 15:31:00 EDT Subject: Colonoscopy Recall Reminder/Recall Please call and schedule in office with Dr. Ugalde/Kera for a surveillance colonoscopy. Patient scheduled for 02/19/[address] Ugalde.[facility] 10-16-2022 Evaluation + Plan noteExtracted from: Title:EU Local Male Cystosco py w/ or w/o UD - FT Author:Todd CRUZ MD Date:10/16/22 Patient: ESTRADA PFEIFFER Age: 77 years Sex: Male : 1945 Associated Diagnoses: None Author: Todd CURZ MD Procedure Operative Information Details: Date/ Time: [...] Date:02/13/2023 08:30:00 AM Scheduled Provider:Todd CRUZ MD Location:[facility] 234 beds at the [facility] Appointment Type:URO Office Visit Diagnostic Tests Pending * UroVysion Fish and Urine Cyto ([facility]) 10/16/22 [facility]06-20-2023 Note [id number]:127[facility] 10-16-2022 Hospital Discharge instructions [...] With:Todd CRUZ Address: [facility] [address], [place] [address] Business (1) When: Unknown Comments:Keep scheduled appointment [facility]06-20-2023 NoteCustom Cystoscopy ? Voiding after the procedure: [...] have a fever over 100 degrees.[facility] 10-03-2022 Hospital Discharge instructions [...] Follow these instructions at home: Medicines Take xgxe-yll-qgdbjuk and prescription medicines only as told by [...] or the blood stops without treatment. Take aikz-xhw-okovjfs and prescription medicines only as told by your health care provider. Drink enough fluid to keep your urine pale yellow. This information is not intended to replace advice given to you by your health care provider. Make sure you discuss any questions you have with your health care provider. Document Revised: 12/14/2020 Document Reviewed: 12/14/2020 Easy Food Patient Education 2022 [employer]. Follow Up Care 09/06/2022 09:26:45 With:MATTHEW CASTRO, ANJELICA Meza, URL Address: [address] [place] [address] When: Unknown [facility] 02-27-2023 Hospital Discharge instructions Patient Education 06/24/2022 [...] 11/27/2004 Document Revised: 03/28/2018 Document Reviewed: 03/06/2018 Easy Food Patient Education 2020 [employer]. Follow Up Care 06/24/2022 21:38:40 With:Tulio Vaughan Address: [address] [place] [address]- Business (1) When:06/27/2022 With:Haven Encinas Address: [address] [place] [address]- Business (1) When:Within 3 Day(s) [facility]10-05-2022 Evaluation note* Encounter Date Diagnosis Assessment Notes Treatment Notes Treatment Clinical Notes Jan, Obstructive sleep apnea (ICD-10 - G47.33) Fortunately patient is using and benefiting from treatment. Download was reviewed with patient. His AHI is elevated at 11.7. We will go ahead and increase his pressure settings to 15/8 to eliminate some breakthrough apneas, an order was sent to the [employer] to have these completed. A prescription was also sent to the [employer] for new supplies throughout the year, as [...] of weight loss on KATHY were reviewed. [facility] Other 08-16-2022 Hospital Discharge instructions Patient Education [...] veins using minimally invasive surgery (subfascial endoscopic manhole builder vein surgery). This method may be used in advanced cases. Follow these instructions at home: Medicines Take and use hhtd-gwk-kluahkb and prescription medicines and creams only as [...] 09/01/2009 Document Revised: 10/27/2018 Document Reviewed: 10/27/2018 Easy Food Patient Education [employer]. Follow Up Care 12/11/2021 22:19:17 With:Milla Montoya Address: [address] [place] [phone] Business (1) When:12/14/2021 Comments:Call this vascular surgeon to discuss potential therapies for her varicose veins should they continue to become symptomatic. With:Haven Encinas Address: [address] [place], [place] [address] [address] Business (1) When:12/14/2021 Comments:Call the office of [...] to the area. Return with further bleeding. [facility]01-01-2012 History general Narrative - Reported* Type Description Date Medical History Hypertension Medical History BPH Medical History severe KATHY Medical History CAD, one stent Medical History prostate cancer 2011 Surgical History Cardiac Stent Placement 04/2011 Surgical History Seed Implant 06/2011 Surgical History Sebaceous Cyst Excised 2008 Hospitalization History see surgical hx [facility] Other Evaluation + Plan note Future Appointments Appointment Date:02/07/2022 08:30:00 AM Scheduled Provider:Todd CRUZ MD Location:Counts include 234 beds at the [facility] Appointment Type:URO [facility] Future Appointments Appointment Date:01/29/2022 09:15:00 AM Scheduled Provider:Milla Montoya MD Location[facility] Appointment Type:Vascular Follow Up (FT) Appointment Date:02/07/2022 08:30:00 AM Scheduled Provider:Todd CRUZ MD Location:[facility] [place] Appointment Type:URO [facility] Future Appointments Appointment Date:02/13/2023 08:30:00 AM Scheduled Provider:Todd CRUZ MD Location:[facility] [place] Appointment Type:URO [facility] Future Appointments Appointment Date:02/13/2023 08:30:00 AM Scheduled Provider:Todd CRUZ MD Location:[facility] [place] Appointment Type:URO Office Visit Future Scheduled Tests Radiology* CT Abdomen/Pelvis w/o Contrast 10/03/22 [facility] note Future Appointments Appointment Date:02/13/2023 08:30:00 AM Scheduled Provider:Todd CRUZ MD Location:[facility] [place] Appointment Type:URO Office Visit Diagnostic Tests Pending * Urine Culture 10/03/22 Future Scheduled Tests Radiology* CT Abdomen/Pelvis w/o Contrast 10/03/22 [facility] Future Appointments Appointment Date:10/16/2022 08:30:00 AM Scheduled Provider: Location:[facility] Appointment Type:Urology FT Appointment Date:02/13/2023 08:30:00 AM Scheduled Provider:Todd CRUZ MD Location:[facility] [place] Appointment Type:URO [facility] Visit [facility] Future Appointments Appointment Date:02/13/2023 08:30:00 AM Scheduled Provider:Todd CRUZ MD Location:Counts include 234 beds at the [facility] Appointment Type:URO Office Visit Appointment Date:02/19/2023 03:00:00 PM Scheduled Provider:Zina Ugalde MD Location:[facility] Appointment Type:[facility] New Patient [facility] Evaluation + Plan note Future Appointments Appointment Date:02/13/2023 08:30:00 AM Scheduled Provider:Todd CRUZ MD Location:Counts include 234 beds at the [facility] Appointment Type:URO Office Visit Appointment Date:02/19/2023 03:00:00 PM Scheduled Provider:Zina Ugalde MD Location:[facility] Appointment Type:[facility] New Patient Diagnostic Tests Pending * UroVysion Fish and Urine Cyto ([facility]) 02/06/23 [facility] Future Appointments Appointment Date:03/06/2023 03:00:00 PM Scheduled Provider:ANJELICA NATION PA-C Location:Counts include 234 beds at the [facility] Appointment Type:URO Office Visit Appointment Date:03/18/2023 10:15:00 AM Scheduled Provider:Zina Ugalde MD Location:[facility] Appointment Type:[facility] New Patient [facility] Future Appointments Appointment Date:03/18/2023 10:15:00 AM Scheduled Provider:Zina Ugalde MD Location:[facility] Appointment Type:BAD New Patient Appointment Date:03/12/2024 08:30:00 AM Scheduled Provider:ANJELICA NATION PA-C Location:Counts include 234 beds at the [facility] Appointment Type:URO Office Visit Future Scheduled Tests Laboratory* PSA Total 03/06/24 [facility] Evaluation + Plan note Future Appointments Appointment Date:05/09/2023 10:00:00 AM Scheduled Provider: Location:[facility] Appointment Type:Surgery FT Appointment Date:03/12/2024 08:30:00 AM Scheduled Provider:ANJELICA NATION PA-C Location:Counts include 234 beds at the [facility] Appointment Type:URO Office Visit Future Scheduled Tests Laboratory* PSA Total 03/06/24 * CBC w/ Auto Diff 03/18/23 * Comprehensive Metabolic Panel 03/18/23 [facility] Evaluation + Plan note Future Appointments Appointment Date:03/12/2024 08:30:00 AM Scheduled Provider:ANJELICA NATION PA-C Location:Counts include 234 beds at the [facility] Appointment Type:URO Office Visit Future Scheduled Tests Laboratory* PSA Total 03/06/24 * CBC w/ Auto Diff 03/18/23 * Comprehensive Metabolic Panel 03/18/23 [facility] Future Appointments Appointment Date:03/12/2024 08:30:00 AM Scheduled Provider:ANJELICA NATION PA-C Location:Counts include 234 beds at the [facility] Appointment Type:URO Office Visit Future Scheduled Tests Laboratory* PSA Total 03/06/24 [facility] Evaluation noteNo assessment information available [facility] Work Phone: [employer] noteNo InformationNort [employer] Other Hospital course Narrative No data available for this section [facility] No data available for this section [facility] note No data available for this section [facility] Chief Complaint * ESTRADA PFEIFFER is being [...] several months ago by vascular surgery at [facility]. Lipid profile from recent testing was reviewed [...] he had venous stripping last year at [facility] * 6. Sleep apnea on CPAP machine [...] he had venous stripping last year at [facility] * 6. Sleep apnea on CPAP machine [...] Team Status: Inactive Member Role Status Dates Haven Sindy Encinas III , DO Primary Care Provider Active Tulio Hinojosa MD Attending Provider Active Team Status: Active Member Role Status Dates Haven R Encinas III , DO Primary Care Provider Active Team Status: Inactive Member Role Status Dates Haven R Encinas III , DO Primary Care Provider [...] section and content) DATE CREATED AUTHOR 12/18/2022 [facility] DATE CREATED AUTHOR AUTHOR'S ORGANIZ ATION 12/18/2022 [employer] DATE CREATED AUTHOR AUTHOR'S ORGANIZ ATION 05/26/2023 [facility] DATE CREATED AUTHOR AUTHOR'S ORGANIZ ATION 06/19/2023 [facility] DATE CREATED AUTHOR AUTHOR'S ORGANIZ ATION 06/28/2023 [facility] FOR RECORDS PERTAINING TO PATIENTS WHO ARE [...] BE BASED ON THE PRIMARY CLINICAL RECORDS. [facility]. provides no warranty or guarantee of the accuracy or completeness of information in this document.
== END 2023-07-03 09:24 | disposition home or self-care (01) ==
LOC: VC 09:23
PROVIDERS: Family Provider Family Medicine; PCP Radiology Diagnostic Radiology; Visit Provider Radiology Diagnostic Radiology
DX: I80.02 Phlebitis and thrombophlebitis of superficial vessels of left lower extremity (principal)
CPT/HCPCS: 93971; G0463

== ENCOUNTER 2023-07-09 08:11 | Outpatient (OUT) | payer MEDICARE, SELFPAY ==
--- NOTE | 2023-07-09 08:12 | VEIN_ITS ---
[address] [address] Patient Name: ESTRADA PFEIFFER MRN: [id number] date: 1945 Sex: M Assigned Patient Location: Current Patient Location: Accession/Order Number: [id number] Exam Date: 07/09/2023 08:15 Report Date: 07/09/2023 09:07 At the request of: KEVIN SON Procedure: VC INJ Foam Sclerosant WUS MONUMENT INSTALLER PROCEDURE: VC INJ Foam Sclerosant WUS MONUMENT INSTALLER COMPARISON: None. HISTORY: I83.813 Bilateral painful varicose veins Pre-operative Diagnosis: CEAP class C4a venous insufficiency with pain, tenderness, edema and incompetent left great saphenous and varicose vein(s), chronic venous insufficiency left leg secondary to venous incompetence Post-operative Diagnosis: CEAP class C4a venous insufficiency with pain, tenderness, edema and incompetent left great saphenous and varicose vein(s), chronic venous insufficiency left leg secondary to venous incompetence Procedure Performed: 1. Ultrasound-guided microfoam chemical ablation with Varithenaregistered 2. Intraoperative ultrasound guidance Anesthesia: None Indications for Procedure: 78-year-old male who presents with a long history of lower extremity pain and swelling varicose veins with extensive hemosiderin staining and swelling. The patient failed conservative medical therapy including medical compression stockings, exercise and analgesics. Prior procedures include . Multiple incompetent varicosities of the left leg. Duplex scan showed reflux and enlarged diameters up to 5 mm. The patient underwent informed consent including management options where the complications of infection, bleeding, pain, and skin injury were discussed. Particular attention was spent discussing thrombus extension and deep vein thrombosis as well as the possibility of pulmonary embolus and treatment with oral or injectable blood thinners. Procedure: The patient walked to the procedure room. All applicable staff donned appropriate apparel. A procedure timeout was performed to confirm correct patient, correct extremity, correct procedure, and correct room set-up including presence of all applicable supplies, devices, and drugs. A duplex ultrasound, performed by myself confirmed the location and incompetence of branch saphenous varicosities and their course was marked on the skin together with the dilated tributaries. The extent of treatment of the vein and the associated varicosities was determined through ultrasound mapping. The skin was prepped and then punctured with a butterfly needle and advanced under ultrasound guidance. The Varithenaregistered canister was activated and the canister was primed and purged as required in the instructions for use. Varithenaregistered was drawn into a sterile syringe. The following injections were made: 7 cc injected into a 5 mm varicose vein distal medial left lower leg 5 cc injected into a 4 mm varicose vein mid medial thigh 3 cc injected into a 4 mm varicose vein left lateral lower leg Varithenaregistered was slowly administered at 0.5-1.0 cc/second with close observation by ultrasound of its course in the vessels. Total volume utilized was: 15cc. Following administration of Varithenaregistered the leg was elevated and the patient was asked to repeatedly dorsiflex the ankle to limit flow of Varithenaregistered into perforating veins. Once appropriate spasm had been confirmed in the treated veins, the vascular catheter was removed from the leg and light pressure was applied over the puncture site for hemostasis. The common femoral and deep superficial veins were then evaluated for flow and compressibility prior to dressing placement. The lower extremity was kept elevated at 45 degrees above the horizontal and cording material was applied over the saphenous segments and tributaries to allow for eccentric compression over the target vessels including the targeted saphenous vein(s). A multilayer dressing was applied consisting of foam pads, coban and thigh-high 20-30 mm Hg compression elastic support hose were placed on the patient. The leg was lowered only after compression had been applied and the patient was immediately ambulatory. The patient ambulated 10 minutes under supervision and was without apparent concerns at time of release. Post-care instructions include advising patient to keep post-treatment bandages in place and dry for 48 hours, avoid extended periods of inactivity, avoid heavy exercise for one week, wear compression stockings on the treated leg continuously for two weeks, to walk daily for 10 minutes over the next month. The patient was instructed to take an anti-inflammatory medicine as needed and to follow up for color duplex scan of the Saphenous veins, the treated branch saphenous varicosities, the adjacent deep veins, and additional treatment within 7 days. PERSONNEL: Ac Elizabeth RN Electronically authenticated by: KEVIN SON Date: 07/09/2023 09:07
--- OUTSIDE RECORDS SUMMARY | 2023-07-09 08:15 | XMS_ITS | CCD ---
Author Name Unknown Address [address] [facility] [address] [place] [address] Organization [facility] Care Team Providers Care Expansion Joint Builder Name Role Phone Haven Encinas Unavailable Unavailable Unavailable DO Haven Encinas III Primary Care Provider MD Tulio Hinojosa Attending Provider Haven Encinas III Primary Care Physician Asuncion [...] Unavailable CRUZ, Todd R Attending Unavailable Sarmini, Zina Gallardo Admitting Unavaila ble Sarmini, Zina Gallardo Attending Unavaila ble Deshpande, Summer Admitting Unavailable Deshpande, Wheeler Attending Unavailable TopherJosh chambers Attending Unavailable Sarmini, Zina Talal Admitting Unavaila ble Sarmini, Zina Gallardo Attending Unavaila ble Sarmini, Zina Ashtonal Referring Unavaila ble CRUZ, Todd R Admitting Unavailable CRUZ, Todd R Attending Unavailable CRUZ, oTdd R Referring Unavailable Pocos, Tulio Quiñonez Admitting [...] Translations: [Iodine SOLN] Drug Allergy Itching, Rash [place] [address] DO Work Phone: (20 sources) Penicillins; Translations: [Penicillins] Allergy to drug (finding) Unknown (qualifier value) [place] [address] DO Work Phone: (12 sources) shellfish, unspecified; Translations: [shellfish] Allergy to substance (finding) Difficulty breathing (finding) [facility] (20 sources) Sulfonamides (Antibiotic); Translations: [Sulfa Drugs] Allergy to drug (finding) Discoloration of skin (finding) [place] [address] DO Work Phone: (19 sources) Calcium Carbonate; Translations: [calcium carbonate] Drug Allergy Swelling, Hives [facility] Comment on above: calcium sulfate (20 sources) Iodine; Translations: [iodine] Drug Allergy Hives, Swelling [facility] (16 sources) Shellfish; Translations: [shellfish] Drug allergy Difficulty breathing (finding) [facility] (19 sources) Fish 1 Propensity to adverse reactions to substance Difficulty breathing (finding) [facility] Comment on above: trout (4 sources) Penicillin Drug Allergy swelling [facility] Other (4 sources) Sulfonamides (Antibiotic) Propensity to adverse reactions rash [facility] Other (1 source) Calcium; Translations: [Calcium] Drug Allergy [facility] Repository (1 source) Fish - dietary; Translations: [Fish] Propensity to adverse reactions (disorder) [facility] Repository (1 source) Penicillins Drug allergy (disorder) 05-02-19 [facility] Repository (1 source) Sulfonamides (Antibiotic) Drug allergy (disorder) 05-02-19 [facility] Repository Medications Current Medications Medication Drug [...] constipation, # 40 cap(s), Refills(s) 0, Pharmacy: [facility], 180, cm, 06/06/21 15:55:00 EST, Height/Length Dosing, 113.6, kg, 06/06/21 15:55:00 EST, Weight Dosing Start Date: 06/27/21 Status: Ordered finasteride 5 mg oral tablet (20 sources) 5-alpha Reductase Inhibitor Start: 05-22-2023 End: 06-21-2023 take 1 tablet by mouth once daily finasteride 5 mg Tab 5 mg = 1 tab(s), Oral, Daily, # 90 tab(s), Refills(s) 3, Pharmacy: [facility], 180, cm, 05/09/23 9:28:00 EST, Height/Length Dosing, 112, kg, 05/09/23 9:28:00 EST, Weight Dosing Start Date: 05/22/23 Status: Ordered Start: 05-18-2020 take 1 tablet by dedrick once daily finasteride 5 mg Tab 5 mg = 1 tab(s), Oral, Daily, # 90 tab(s), Refills(s) 3, Pharmacy: [facility], 180, cm, 10/16/22 8:31:00 EDT, [...] day(s), # 180 cap(s), Refills(s) 6, Pharmacy: [facility], 180, cm, 05/09/23 9:28:00 EST, Height/Length [...] 7days, # 40 tab(s), Refills(s) 0, Pharmacy: [facility], 180, cm, 06/06/21 15:55:00 EST, Height/Length [...] completed, # 2 tab(s), Refills(s) 0, Pharmacy: [facility], 180, cm, 10/03/22 13:53:00 EDT, Height/Length [...] [Coronary atherosclerosis of unspecified type of vessel, [place] or graft] 06-27-2021 Chronic Coronary atherosclerosis and [...] CASTRO, ANJELICA Meza Where: [facility] CBC w/ Auto Diffon 4 Basophil Absolute 0.1 E9/L Normal 0.0-0.2 [facility] Comment on above: Performed By: #### 2 885899, 2015889, [id number] ####[facility] [address] [place] [address] Basophils/100 WBC (Bld) 1.0 % Normal 0.0-2.0 [facility] Comment on above: Performed By: #### 2 270843, 3090545, [id number] ####[facility] [address] [place] [address] Eos Absolute 0.2 E9/L Normal 0.0-0.5 [facility] Comment on above: Performed By: #### 2 464678, 2563090, [id number] ####[address] [address] Eosinophils/100 WBC (Bld) 2.7 % Normal 0.0-8.0 [facility] Comment on above: Performed By: #### 2 481761, 8658715, 61111336 ####[facility] [address] [place] [address] Erythrocyte distribution width (RBC) [Ratio] 13.7 % Normal 10.9-14.2 [facility] Comment on above: Performed By: #### 2 310565, 0669595, 75040646 ####[facility] [address] [place] [address] Hematocrit (Bld) [Volume fraction] 40.0 % Normal 37.7-49.0 [facility] Comment on above: Performed By: #### 2 569521, 0336253, 85995575 ####[facility] [address] [place] [address] Hemoglobin (Bld) [Mass/Vol] 13.2 g/dL Low 13.5-17.5 [facility] Comment on above: Performed By: #### 2 140919, 4898756, 72649589 ####[facility] [address] [place] [address] Lymph Absolute 2.0 E9/L Normal 1.0-4.0 [facility] Comment on above: Performed By: #### 2 624474, 5075774, 65297099 ####[address] [address] Lymphocytes/100 WBC (Bld) 35.0 % Normal 14.0-50.0 [facility] Comment on above: Performed By: #### 2 229722, 5792916, 31242300 ####[address] [address] MCH (RBC) [Entitic mass] 29.1 pg Normal 27.0-34.0 [facility] Comment on above: Performed By: #### 2 522953, 3505625, [id number] ####[address] [address] MCHC (RBC) [Mass/Vol] 33.0 g/dL Normal 31.4-36.0 [facility] Comment on above: Performed By: #### 2 467237, 7315121, 45750100 ####[address] [address] MCV (RBC) [Entitic vol] 88.3 fL Normal 80.0-100.0 [facility] Comment on above: Performed By: #### 2 962991, 3520772, 08907750 ####[address] [address] [place] Absolute 0.6 E9/L Normal 0.2-1.0 [facility] Comment on above: Performed By: #### 2 022291, 9861442, 45941835 ####[address] [address] Monocytes/100 WBC (Bld) 10.1 % Normal 4.0-14.0 [facility] Comment on above: Performed By: #### 2 059474, 2880043, 20160488 ####[facility] [address] [place] [address] Neutro Absolute 2.9 E9/L Normal 2.0-7.5 [facility] Comment on above: Performed By: #### 2 994112, 2316359, 20937548 ####[address] [address] Neutro Auto 51.2 % Normal 36.0-75.0 [facility] Comment on above: Performed By: #### 2 111301, 8722262, 17235926 ####[address] [address] Platelet 125.0 E9/L Low 150.0-500.0 [facility] Comment on above: Performed By: #### 2 447202, 2164571, 14875286 ####[address] [address] Platelet mean volume (Bld) [Entitic vol] 10.4 fL Normal 6.4-10.8 [facility] Comment on above: Performed By: #### 2 136742, 8264424, 84312602 ####[address] [address] RBC 4.5 E12/L Normal 4.3-5.9 [facility] Comment on above: Performed By: #### 2 283761, 1039514, 70632916 ####[facility] [address] [place] [address] WBC 5.7 E9/L Normal 4.0-11.0 [facility] Comment on above: Performed By: #### 2 371363, 3637273, 25936158 ####[address] [address] CHEMISTRYOrdered By: SYSTEM SYSTEM on 05-24-2023 Albumin [...] 05-24-2023 Albumin [Mass/Vol] 4.2 g/dL Normal 3.3-5.0 [facility] Comment on above: Performed By: #### 2 957401, 6943718, 56803082 ####[place] [address] [place] [address] Albumin/Globulin [Mass ratio] 1.5 {ratio} Normal 1.1-2.2 [facility] Comment on above: Performed By: #### 2 203835, 1071400, 69605305 ####[address] [address] Alk Phos 66 Int._Unit/L Normal 21-98 [facility] Comment on above: Performed By: #### 2 343727, 6615052, 30405290 ####[address] [address] ALT 11 Int._Unit/L Normal 6-46 [facility] Comment on above: Performed By: #### 2 828399, 9536752, 77216776 ####[address] [address] Anion gap [Moles/Vol] 12 mmol/L Normal 6-16 [facility] Comment on above: Performed By: #### 2 132302, 7179820, 90563447 ####[address] [address] AST 16 Int._Unit/L Normal 5-43 [facility] Comment on above: Performed By: #### 2 970396, 3051862, 64913909 ####[address] [address] Bili Total 0.8 mg/dL Normal 0.0-1.1 [facility] Comment on above: Performed By: #### 2 652209, 0780714, 83893387 ####[address] [address] BUN/Creat Ratio 20 No Units Normal 10-20 [facility] Comment on above: Performed By: #### 2 247678, 7195991, 64254806 ####[address] [place] [address] Calcium [Mass/Vol] 9.2 mg/dL Normal 8.9-11.1 [facility] Comment on above: Performed By: #### 2 628437, 8726997, 48422464 ####[facility] [address] [place] [address] Chloride [Moles/Vol] 106 mmol/L Normal 101-111 [facility] Comment on above: Performed By: #### 2 760036, 2605825, 28651720 ####[facility] [address] [place] [address] CO2 [Moles/Vol] 25 mmol/L Normal 21-31 [facility] Comment on above: Performed By: #### 2 637880, 4707441, 43542653 ####[address] [address] Creatinine [Mass/Vol] 0.9 mg/dL Normal 0.5-1.3 [facility] Comment on above: Performed By: #### 2 967090, 2469279, 35311362 ####[facility] [address] [place] [address] Globulin (S) [Mass/Vol] 2.8 g/dL Normal 1.4-4.0 [facility] Comment on above: Performed By: #### 2 061989, 7620815, 60177926 ####[facility] [address] [place] [address] Glucose [Mass/Vol] 84 mg/dL Normal 55-199 [facility] Comment on above: Performed By: #### 2 196551, 3434826, 03857398 ####[facility] [address] [place] [address] Potassium [Moles/Vol] 4.3 mmol/L Normal 3.5-5.3 [facility] Comment on above: Performed By: #### 2 705876, 6170085, 74642987 ####[facility] [address] [place] [address] Protein [Mass/Vol] 7.0 g/dL Normal 6.0-7.8 [facility] Comment on above: Performed By: #### 2 543315, 8615539, 90707794 ####[facility] [address] [place] [address] Sodium [Moles/Vol] 139 mmol/L Normal 135-145 [facility] Comment on above: Performed By: #### 2 220400, 9761464, 77575515 ####[facility] [address] [place] [address] Urea nitrogen [Mass/Vol] 18 mg/dL Normal 5-21 [facility] Comment on above: Performed By: #### 2 493430, 1129667, 80012588 ####[facility] [address] [place] [address] Consent for Treatmenton 04-30 Consent for Treatment [id number] Normal [facility] Gastroenterology Office/Clin ic Noteon 05-24-2023 Gastroenterology Office/Clinic [...] cm, GE junction at 34 cm 2. 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 Normal [facility] Comment on above: Result Comment: Elec tronically [...] Normal 80.0 - 100.0 fL Remisol Heme [place] Absolute 0.6 E9/L Normal 0.2 - 1.0 [...] 05-24-2023 Reminders - From: Sonya Ricks To: [facility] - Reminders/Recalls; Sent: 05/24/2023 13:48:57 EST Show up: 03/29/2026 13:48:00 EST Subject: Ambulatory Reminder Due Date/Time: 04/29/2026 13:48:00 EST Reminder/Recall Entered by Sonya Ricks on May 24, 2023 13:47:46 EST 05/09/2026 3 year colon recall From: Tram DOUGLASS, Zina Gallardo To: Sonya Ricks; Sent: 05/24/2023 13:36:04 EST Subject: General Message Caller Name: ESTRADA PFEIFFER; Caller Number: H , M 3 years plz Normal [facility] eGFRon 05-24-2023 eGFR 88 mL/min/1.73 m2 Normal >=59 [facility] Comment on above: Order Comment: Order added by Discern Expert. Performed By: #### 2 426872, 1709708, [id number] ####[facility] [address] [place] [address] Provider Letteron 05-20-2023 Provider Letter (Inserted Image. Linda ble to display) May 20, 2023 ESTRADA PFEIFFER [address] [place] [address] : 1945 Dear Estrada , We have been trying to reach you with no success. It is important that you return our call regarding scheduling a follow up appointment from procedure dated 05-09-23 upon receiving this letter. Also, at the time of your call, please provide us with your current information. Thank you for your prompt attention to this matter. Sincerely, [facility] [phone] Normal [facility] Pathology Reporton Pathology Report [id number]#[id number] Normal [facility] Postoperative Documentson Postoperative Documents [id number]#[id number] Normal [facility] IntraOperative Documentson 0 05-13-2023 IntraOperative Documents [id number]#1.00TIFF Alexandre Lott [facility] Progress Note-Physicianon Progress Note-Physician Patient: ESTRADA PFEIFFER [...] All Problems Urge incontinence / SNOMED CT 369980751 / Confirmed Post-void dribbling / SNOMED CT 707024495 / Confirmed Osteoarthritis / SNOMED CT 7995295729 / Confirmed Obstructive sleep apnea / SNOMED CT 389400671 / Confirmed uses CPAP Obesity 29-OCT-2013 12:37:00<$> / SNOMED CT [id number] 037K8Y7L / Confirmed Nocturia / SNOMED CT 589701445 / Confirmed Frequent urination / SNOMED CT 953328308 / Confirmed History of colon polyps / SNOMED CT 0384674624 / Confirmed Personal history of prostate cancer / SNOMED CT 7260638655 / Confirmed Bloody stools / SNOMED CT 8440221044 / Confirmed 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 Resolved due to patient discharge. Resolved: Prostate cancer / ICD-9-CM 185 Resolved: HTN (hypertension) / ICD-9-CM 401.9 Resolved: Coronary artery disease / ICD-9-CM 414.00 Histories Procedure history: Cystourethroscopy with dilation of urethral stricture (355025027) on 10/16/2022 at 77 Years. Endovenous laser ablation of varicose vein (7707428877) on 02/15/2022 at 76 Years. Comments: 02/15/2022 11:20 EDT - Ravin TAPIA, Gareth A bilateral Total knee replacement (2507875087) on 06/27/2021 at 76 Years. Cysto (74479538) on 06/11/2017 at 72 Years. Comments: 11/18/2018 9:29 Mery Burk 12/02/07, 05/1013, 05/1317 left total knee arthroplasty on 04/13/2016 at 70 Years. left shoulder arthroscopy with extensive glenohumeral debridement, subacromial decompression, partial distal clavicectomy, mini-open rotator cuff repair on 02/23/2014 at 68 Years. Brachytherapy (369167924) on 07/12/2011 at 66 Years. Evolve Laser of Prostate (062247535) on 08/12/2007 at 62 Years. Urodynamics (810830354) on 07/15/2007 at 62 Years. TRUS w/Bx (7399008892) on 05/24/2000 at 55 Years. Comments: 11/18/2018 9:32 Mery Burk 01/23/11 Stented coronary artery ([id number]). Cancer of prostate (9160841431). Comments: 02/23/2014 12:37 EDT - Hayden TAPIA, Trinidad radiation seed implant Sleep studies (281803180). Hernia (2086218366). Social History Social & Psychosocial Habits Alcohol [...] adequate air exchange. Cardiovascular: Regular rhythm. Plan [employer] Anesthesi[employer] (ASA) physical status classification: Class III. Anesthetic Preoperative Plan: Anesthesia General. [facility] Comment on above: Result Comment: Elec tronically [...] when meets criteria ( To home ). [facility] Comment on above: Result Comment: Elec tronically Signed By: Tico Huston Jr, DO\.br\Date and Time Signed: 05/13/23 11:25 EST Consenton 2023 Consent [id number]#1.00TIFF [facility] Discharge Instructionson Discharge Instructions [id number]#1.00TIFF [facility] Main OR Intraoperative Recor don 2023 Main OR Intraoperative Record IntraOp Document Type FT Summary Primary Physician: Zina Ugalde MD Finalized Date/Time: 05/10/23 09:38:29 Pt. Name: ESTRADA PFEIFFER/Sex: 1945 Male Med Rec #: [id number] Physician: Zina Ugalde MD Financial #: [id number] Pt. Type: O Room/Bed: / Admit/Disch: 05/09/23 [...] Nikhil Becerra RN, Stephani Marroquin Role Performed CIVIL ENGINEERING PROFESSOR Motor Coach Tour Operator - Primary Scrub - Primary Time [...] F, Nikhil Crisostomo CRNA, Stephani Fitzgerald, Alex VARIETY SAW OPERATOR, Nimisha Ivory, Tram DOUGLASS, Zina Gallardo [...] and tissue Entry 1 Skin Integrity Intact, [place], Warm, and Skin Abnormality No Dry Outcomes Met? Yes Last Modified By (more content not included)... Normal [facility] Consent for Treatmenton 04-29 Consent for Treatment [id number] Normal [facility] Discharge Instructionson Discharge Instructions ESTRADA PFEIFFER Khang [...] ANJELICA NATION PA-C Where: [facility] Comment on above: Result Comment: Elec [...] hours. Education and Follow-up: Counseled: Patient, Family. [facility] Comment on above: Result Comment: Elec tronically [...] cm, GE junction at 34 cm 2. [place] colored mucosa suggestive of Siu's esophagus, C1M5, [...] cm, GE junction at 34 cm 2. [place] colored mucosa suggestive of Siu's esophagus, C1M5, [...] 30 minutes before breakfast and dinner Normal [facility] Comment on above: Result Comment: Elec tronically Signed By: Tram DOUGLASS, Zina Gallardo\.br\Date and Time Signed: 05/09/23 09:58 EST Other Comment: Aaliyah wilson Attachment - attachment storage system not supported [id number] Can be viewed in source systemMissing Attachment - attachment storage system not supported [id number] Can be viewed in source systemMissing Attachment - attachment storage system not supported [id number] Can be viewed in source systemMissing Attachment - attachment storage system not supported [id number] Can be viewed in source systemMissing Attachment - attachment storage system not supported [id number] Can be viewed in source systemMissing Attachment - attachment storage system not supported [id number] Can be viewed in source systemMissing Attachment - attachment storage system not supported [id number] Can be viewed in source systemMissing Attachment - attachment storage system not supported [id number] Can be viewed in source systemMissing Attachment - attachment storage system not supported [id number] Can be viewed in source [facility] Attachment - attachment storage system not supported [id number] Can be viewed in source systemMissing Attachment - attachment storage system not supported [id number] Can be viewed in source system Inpatient Patient Summaryon 05-09-2023 Inpatient Patient Summary [address] [address] [facility] Clinical Discharge Instructions PERSON INFORMATION Name: ESTRADA PFEIFFER PHYSICIANS Admitting Physician: Zina Ugalde MD Attending Physician: Zina Ugalde MD PCP: Haven Encinas III, DO Discharge Diagnosis: Colon polyps; Dysphagia Comment: PATIENT EDUCATION INFORMATION Instructions: Medication Leaflets: Follow up: Type Location Start Finish State URO Office Visit [facility] KIMO HwangManti 03/12/2024 8:30 AM 03/12/2024 8:45 AM Confirmed [...] Tablets By Mouth every day. Comment: Normal [facility] Main OR PACU I Recordon 04-29 Main OR PACU I Record PACU Phase I Document Type FT Summary Primary Physician: Zina Ugalde MD Finalized Date/Time: 05/09/23 11:23:36 Pt. Name: ESTRADA PFEIFFER Khang Serrato/Sex: 1945 Male Med Rec #: [id number] Physician: Zina Ugalde MD Financial #: [id number] Pt. Type: O Room/Bed: / Admit/Disch: 05/09/23 [...] By: Minda Alcantar RN 05/09/23 11:23 Normal [facility] Main OR Preoperative Recordo n 05-09-2023 Main OR Preoperative Record Holding Area Document Type FT Summary Primary Physician: Zina Ugalde MD Finalized Date/Time: 05/09/23 09:38:30 Pt. Name: ESTRADA PFEIFFER/Sex: 1945 Male Med Rec #: [id number] Physician: Zina Ugalde MD Financial #: [id number] Pt. Type: O Room/Bed: / Admit/Disch: 05/09/23 09:12:17 - Institution: Case Times Holding FT Pre-Care Text: Verifies consent for planned procedure, identifies individual values and wishes concerning care, includes family members in perioperative teaching Secures patient's records' belongings, and valuables, maintains patient's dignity and privacy, and maintains patient confidentiality Entry 1 In Holding 05/09/23 09:25:00 Outcomes Met? Yes Last Modified By: Ella Jonse I 05/09/23 09:36:39 Post-Care Text: The patient [...] By: Ella Jones I 05/09/23 09:38 Normal [facility] Monitor Recordon 05-09-2023 Monitor Record [id number]#1.00TIFF Normal [facility] Monitor Record [id number]#1.00TIFF [facility] Outpatient Surgery Discharge Instructionon 05-09-2023 Outpatient Surgery Discharge Instruction [address] [address] Patient Discharge Instructions PERSON INFORMATION Name: ESTRADA [...] Date Follow up: Type Location Start Finish [facility] URO Office Visit [facility] EU Yanick 03/12/2024 8:30 AM 03/12/2024 8:45 AM Confirmed [facility] You may receive a survey from [employer] asking you to rate your care experience. Your feedback is important and will help us understand what we do well and how we can improve the quality of care we provide to you, your loved ones and our community. It?s an honor to serve you. Thank you for choosing [facility] HERE ARE THE MEDICATION CHANGES THAT [...] day. PATIENT EDUCATION INFORMATION Instructions: Medication Leaflets: [facility] Insurance Correspondenceon 0 05-06-2023 Insurance Correspondence [id number]#1.00TIFF [facility] Ambulatory Visit Summaryon 1 05-18-2022 Ambulatory Visit [...] CASTRO, ANJELICA Meza Where: [facility] Consent for Procedure/Surger yon 03-18-2023 Consent for Procedure/Surgery [id number]#[id number] [facility] Gastroenterology Office/Clin ic Noteon 03-18-2023 Gastroenterology Office/Clinic [...] hematuria History of colon polyps Hx of halfway use of blood thinners Nocturia Obesity 29-OCT-2013 [...] virus vaccine, inactivated 02/05/2022 Recorded SARS-CoV-2 (COVID-19) mRNAMUL.[id number] 01/16/2022 Recorded SARS-CoV-2 (COVID-19) mRNA-1273 vaccine 03/01/2021 [...] inactivated 02/16/2017 Re (more content not included)... [facility] Comment on above: Result Comment: Elec tronically Signed By: Tram DOUGLASS, Zina Gallardo\.br\Date and Time Signed: 03/18/23 11:03 EST Screenson 03-07-2023 Screens [id number]#1.00TIFF [facility] Patient Educationon 03-06-20 Patient Education Oncology Prostate [...] Where to find more information ? [employer]: www.cancer.org ? [employer]: www.auanet.org Contact a health care [...] not included)... Normal [facility] Urology Office/Clinic Noteon 03-06-2023 Urology Office/Clinic Note [...] on cytol. CT AP wo con 10/11/22 [facility] - no renal or ureteral stones, no [...] Contact Information MATTHEW CASTRO, ANJELICA Meza, URL [address] [place] [address] [phone] Additional Instructions: 1 yr w/ PSA Patient [...] hematuria History of colon polyps Hx of halfway use of blood thinners Nocturia Obesity 29-OCT-2013 [...] mg= 1 (more content not included)... Normal [facility] Comment on above: Result Comment: Elec tronically Signed By: ANJELICA NATION PA-C\.br\Date and Time Signed: 03/06/23 15:46 EST\.br\Electronically Co-Signed By: Abigail Patricio.br\Date and Time Co-Signed: 03/06/23 15:43 EST CHEMISTRYOrdered By: SYSTEM SYSTEM on 03-05-2023 Prostate specific Ag [Mass/Vol] ng/mL Normal 0.1 - 3.5 ng/mL [facility]isol Comment on above: Interpretive Data: T he concentration of PSA determined by different manufacturers can vary due to differences in assay methods and reagent specificity. Values obtained from different assay methods cannot be used interchangeably. The methodology used for this result was chemiluminescence using [employer]'s [employer] Hybritech PSA reagent. Consent for Treatmenton Consent for Treatment [id number]#1.00TIFF Normal [facility] PSA Totalon 03-05-2023 Prostate specific Ag [Mass/Vol] ng/mL Normal 0.1-3.5 [facility] Comment on above: Result Comment: The concentration of PSA determined by different manufacturers can vary due to differences in assay methods and reagent specificity. Values obtained from different assay methods cannot be used interchangeably. The methodology used for this result was chemiluminescence using [employer]'s [employer] Hybritech PSA reagent. Performed By: #### 1 [id number] #### [facility] Laboratory [address] [place] [address] UroVysion Fish and Urine Cyt o ([facility])on 02-12-2023 UVFISH & UC Diagnosis Info Invalid Interpretation Code [facility] Comment on above: Result Comment: A:Ur ine,Urine:Voided [...] correlated with cytology and cystoscopy results.* CPT 02715, 75496. Microscopic Notes - Microscopic Notes - Abnormal cells 9p21 deletions: Abnormal cells aneploid events: Total cells analyzed: Hematuria: Gross Description Site ID:A color Yellow fixative Alcohol Received 100 mls of clear yellow fluid with the patient's name and, Urine on the vial. Electronically signed by : on: 02/12/2023 11:43:23 Performed By: #### 1 [id number] #### [facility] Laboratory [address] [place] [address] UroVysion Fish and Urine Cyt o ([facility])on 02-06-2023 UVUC Method of Extraction Voided Normal [facility] Comment on above: Performed By: #### 1 [id number] #### [facility] Laboratory [address] [place] [address] UVUC Number of Jars 1 Invalid Interpretation Code [facility] Comment on above: Performed By: #### 1 [id number] #### [facility] Laboratory [address] [place] [address] [facility] Specimen Urine Normal [facility] Comment on above: Performed By: #### 1 [id number] #### [facility] Laboratory [address] [place] [address] [facility]UC Type of Service Technical Only Normal [facility] Comment on above: Performed By: #### 1 [id number] #### [facility] Laboratory [address] [place] [address] Physician Orderon 01-30-2023 Physician Order [id number]#1.00CD:127 Normal [facility] Office Visit (Cardiology)on 12-17-2022 Follow-up visit Diagnoses/Problems [...] Weight Tips; Status:Complete - Retrospective Authorization; Done: [id number] Some eating tips that can help you lose weight.; Status:Complete - Retrospective Authorization; Done: [id number] SocHx: Never a smoker Tobacco Use Screening; Status:Complete; Done: [id number] Patient Instructions Please bring all medicines, vitamins, [...] he had venous stripping last year at [facility]. Sleep apnea on CPAP machine with compliance. Summer Deshpande MD, [facility] Surgical History Problems History of Cardiac catheterization [...] 7:37:38 AM NonMedication Seafood Shortness of breath; [place]; Recorded By: Marissa Guevara; 12/17/2022 1:49:59 PM [...] Recorded: 17Dec2022 01:33PM Heart Rate54, R Radial Uocbevfj522, RUE, Sitting Kdicgfnmd29, RUE, Sitting Height5 ft 11 in Rmfvsk096 lb 12.8 oz BMI Wysauqqlxs18.84 kg/m2 BSA Calculated2.32 Tobacco Useb) No F (more content not included)... Normal [employer] Tobacco Screening.on 023 Fall risk assessment a) No falls within the last year [facility] [employer] 250 DO Work Phone: Tobacco use status [facility] b) No [facility] [employer] 250 DO Work Phone: [employer] 11-26-2022 Reminders - From: Sonya Ricks To: ALETA - Reminders/Recalls; Sent: 11/19/2022 15:18:50 EDT Show up: 11/19/2022 15:19:00 EDT Subject: Ambulatory Reminder Reminder/Recall 5 year colon recall forrest roper 11/07 first recall letter Patient called. He is not credentialed with Dr. Ugalde's insurance and is requesting a call back around January. Reminder placed in system. Normal [facility] Patient Letter FTon 2022 Patient Letter [facility] (Inserted Image. Linda ble to display) November 21, 2022 ESTRADA PFEIFFER [address] [place] [address] : 1945 Dear Estrada, This is a reminder that you are due for an appointment with [facility]. Please contact our office at [phone] to schedule an appointment at your earliest convenience. Thank you, [facility] Normal [facility] UroVysion Fish and Urine Cyt o ([facility])on 10-19-2022 UVFISH & UC Diagnosis Info Invalid Interpretation Code [facility] Comment on above: Result Comment: A:Ur ine,Urine:Cystoscopy [...] correlated with cytology and cystoscopy results.* CPT 17892, 93851. Microscopic Notes - Microscopic Notes - Abnormal cells 9p21 deletions: Abnormal cells aneploid events: 16 Total cells analyzed: 157 Hematuria: Gross Description Site ID:A color Yellow fixative Alcohol Received 90 mls of clear yellow fluid with the patient's name and, Urine on the vial. Electronically signed by : on: 10/19/2022 11:11:56 Performed By: #### 1 [id number] #### [facility] Laboratory [address] [place] [address] Consent for Procedure/Surger yon 10-16-2022 Consent for Procedure/Surgery [id number]#1.00CD:127 Normal [facility] Consent for Treatmenton 09-28 Consent for Treatment [id number]#1.00CD:127 Normal [facility] IntraOperative Documentson 0 10-16-2022 IntraOperative Documents [id number]#1.00CD:127 Normal [facility] Main OR Intraoperative Recor don 10-16-2022 Main OR Intraoperative Record IntraOp Document Type FTURO Summary Primary Physician: Todd CRUZ MD Finalized Date/Time: 10/16/22 09:24:11 Pt. Name: KENTRELLESTRADA/Sex: 1945 Male Med Rec #: [id number] Physician: Todd CRUZ MD Financial #: [id number] Pt. Type: O Room/Bed: / Admit/Disch: 10/16/22 08:36:10 - Institution: Case Times FTURO Entry 1 Patient Times In Room 10/16/22 09:11:00 Out Room 10/16/22 09:23:00 Procedure Times Start 10/16/22 09:14:00 Stop 10/16/22 09:20:00 Anesthesia Times Last Modified By: Georgia Almonte RN 10/16/22 09:23:53 Case Attendance FTURO Entry 1 Entry 2 Entry 3 Case Attendee Todd CRUZ MD VARIETY SAW OPERATOR, Jenni Almonte RN, Georgia Marroquin Role Performed Surgeon - Primary Scrub - Primary Motor Coach Tour Operator - Primary Time In 10/16/22 09:11:00 [...] By: Georgia Almonte RN 10/16/22 09:24 Normal [facility] Main OR Preoperative Recordo n 10-16-2022 Main OR Preoperative Record Holding Area Document Type FTURO Summary Primary Physician: Todd CRUZ MD Finalized Date/Time: 10/16/22 09:17:01 Pt. Name: ESTRADA PFEIFFER/Sex: 1945 Male Med Rec #: [id number] Physician: Todd CRUZ MD Financial #: [id number] Pt. Type: O Room/Bed: / Admit/Disch: 10/16/22 [...] Comment: left hip area Skin Integrity Intact, [place], Warm, & Dry Vitals - EU Blood Pressure 165/65 Pulse 63 bpm Respirations 20 br/min SPO2 97 % RN Reviewed Yes Last Modified By: Georgia Almonte RN 10/16/22 09:17:00 General Comments: Temp 36.8 Finalized By: Georgia Almonte RN Document Signatures Signed By: Paty Watkins LPN 10/16/22 08:49 Georgia Almonte RN 10/16/22 09:17 Normal [facility] Operative Reporton Operative Report Patient: ELVIS PFEIFFER [...] to his allergy to IV contrast. Normal [facility] Comment on above: Result Comment: Elec tronically Signed By: ANTHONY DOUGLASS, Todd Sexton\Date and Time Signed: 10/16/22 09:28 EDT Outpatient Surgery Discharge Instructionon 10-16-2022 Outpatient Surgery Discharge Instruction [id number]#1.00CD:127 Normal [facility] UroVysion Fish and Urine Cyt o ([facility])on 10-16-2022 UVUC Method of Extraction Cystoscopy Normal [facility] Comment on above: Performed By: #### 1 [id number] #### [facility] Laboratory [address] [place] [address] [facility] Number of Jars 1 Invalid Interpretation Code [facility] Comment on above: Performed By: #### 1 [id number] #### [facility] Laboratory [address] [place] [address] [facility] Specimen Cystoscopy Normal [facility] Comment on above: Performed By: #### 1 [id number] #### [facility] Laboratory [address] [place] [address] [facility]UC Type of Service Technical Only Normal [facility] Comment on above: Performed By: #### 1 [id number] #### [facility] Laboratory [address] [place] [address] CT Abdomen/Pelvis w/o Contra ston 10-13-2022 CT [...] No Oral contrast amount in ml's: 0 [facility] Consent for Treatmenton 09-27 Consent for Treatment [id number]#1.00CD:127 [facility] Pre-Certification Formon Pre-Certification Form [id number]#1.00CD:127 [facility] C Urineon 10-05-2022 Bacteria identified Cx Nom [...] Locations R1: This test was performed at: [facility], [address] [place] [address], [id number] [place] [address], [facility] Comment on above: Performed By: #### 2 [id number] ####[facility] [address] [place] [address] Patient Educationon 10-04-19 Patient Education Urology Hematuria, [...] these instructions at home: Medicines ? Take mnwr-xsd-drpuqhx and prescription medicines only as told by [...] the blood stops without treatment. ? Take gbrr-yfy-vyxjfvp and prescription medicines only as told by your health care provider. ? Drink enough fluid to keep your urine pale yellow. This information is not intended to replace advice given to you by your health care provider. Make sure you discuss any questions you have with your health care provider. Document Revised: 12/14/2020 Document Reviewed: 12/14/2020 [employer] Patient Education ? 2022 [employer]. Normal [facility] Pre-Certification Formon Pre-Certification Form [id number]#1.00CD:127 [facility] Pre-Certification Form [id number]#1.00CD:127 [facility] Provider Letteron 10-03-2022 Provider Letter (Inserted Image. Linda ble to display) Haven Encinas III [address] [place], [place] [address] [address] Re: ESTRADA PFEIFFER Date of : [address] Huang BUCHANAN DO, [facility]STR[facility] As this patient has been [...] Thanks! Provider Signature: Anjelica Nation PA-C Physician Phone [facility] [address] [place] [address] Normal [facility] Comment on above: Other Comment: ENTER ED [...] When Contact Information ANJELICA NATION PA-C, URL [address] 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 Normal [facility] Comment on above: Result Comment: Elec tronically Signed By: ANJELICA NATION PA-C\.br\Date and Time Signed: 10/03/22 14:45 EDT\.br\Electronically Co-Signed By: Nilda Gallagher\.br\Date and Time Co-Signed: 10/03/22 14:28 EDT Coding Summary.on 08-31-2022 Coding Summary. CD:[id number] Ww+PGhlY WQ+OZ6QUUFlI93qfBXplV4hK6PQH FtIPpmgNHBDALcFOtZxybUkYD0rc XNjZXJu IC8+KP5tJHQfJdwfiKOml5T5dSI5 X78fwl8jYUbbvEL4XFSkPrSlswsp q5yemAq4XAewOssdIkDe VKHqvJ43FSY4lH26Gb94yQLngFRg k7jueSe1DyGhIHJrZVC4oSjnLWqg v7HfOYOrP99hlORvq3U8 FLQzlDuklPDpToXkgFY7sD0sXUjt hjoye4ltywzgOfs3am51rAMwt6Q1 cAR1P3QuhvH6EUCzxADs RxtfoFKHuG6ulykag4natbukIfWu LVGjFJr4HMw2IWBisRrzXiJoRQ34 ECT6JFNkniKzA6UaEDNn qAmfZhV8u3P1Rf7CS9ETOertR6GI TUFSWTwvdGQ+SQ55ca17L6DsPcnl Fac7JEFdYTO2bQP8tR0k LFZmMEohx4Z1fKS2V9OjcvJcoa5c z0suLLWaXFwgN69jkEIam6C3TURx hJU9OFZdeEhxDbGfqP08 Oyc+CNIwmSvhv3XiEqksf1nax5im eWi3XqptQHApxoYcjQhmVUD1h2Jx Mn6iYOZpmLH8gZX9mR6v EqHoKmW6BQwqE658ObGeoKGrFwdi E07sQ6XevLM+JFOnDgt1NTYipBwo SN5fK0IsQKMzkdtxhYKy vRijSG8qMFYqjhspWIHcaB3cCAMf V9r2KwVeDuX0BQehR6RyQYChaqkv Gz74iQ6cQyFaIpZ4HCtx C2NhsuO1USJweXXhASaxUTS9Y45f p1U7SMQpHKIrXKE7hKH4lU7dzAcj bjogbGVmdDsgdmVydGlj TKylYJxxA336GENksMmbRmEkYLjs ZyBEYXRlOiAgMDUvMDUvMjAyMzwv dGQ+GBGfDLL5bVtkPRRx nXQtJQilNi8vqZrplFtvKS9hRQTy wekjYZKajZ5xNXSklOBipZniUP8u BHOdybpgd068SgAbUXD8 PRIfaPIwB4QqtT2kJxLbLBVpTSWj H4WjvTJyZHtaD572PDyaHbO4RMQq yoCjM9ZaDYDblDhfYvP0 o1C4Rj4Vu8DcqwlvK6IkhZPsLsVe HrttSOc1P5EjCjsylIF+PY75RATe TF29LBy7WLI3pDtuLYfx YXWxP4TmpO6hRzGnGJKeOOJgLma+ PHRhYmxlIHdpZHRoPScxMDAlJyBz tEzaTI5cYl8iEXDzEAFv xCwhkGClLiRey6eyEQAiDQxvTA4w hZxyY9LqrFL0KGPxy6d0Bv72A06l G5KjfTU+JAEznKW3qQP5 vF2sDwRxUdQ0HJxrH174KvOhbVUe Qozqr9kby8izyXn5BwB9SOGzdsJv aYowEDS2e9SdDt14Q13h WRzqCUHxECLlVBMjDTYsaTclrz0z xG9qFi3+ZAYraVQ5cYM6oV9xSsWf OpG1SKztC821SvPdmSGu Xlyaz4rds5zupAw9UvQwMZAhknWb vHtwSYO0m0WkMp72A1QbcGkjb8Av Kzj3lp21nZFga8H6cCC0 U5QyCRFwqlirgBVmkIwlNG4jXDQy srmbKCGfvK1jLDAxP8s3LkKiGxW1 XCutA5AscqC0RGEgvCTt AAMhbZGUnL4hkggzl4vrvzurThCd DZLyUIb8XHe0ZVSslQqfSjChGUS1 XcN8VZC3oMQzaC6gbNhy rlokeJ7hAmr+DMR0cZPgmSEWGH1s OjwvdGQ+LUAnVMQ0tJntMPxaAUTl dD4nWRKnR8k7KaGsEmM6 ABcvT3ZtvyX7NKQixIBwEYGfnOXG xB5zcwzdk5rvxwfzInFeHEGeFVr3 VSf5AKRfbZjrObTbWFO4 MaB2ARU8aCTbsN5hpDpmwhxviX4c Oyc+TonfjSxiDAR1DZo3E6WxXjy1 QZYfrLovUY5mnHNvQJnm Um0btLtuaUfoDS8yUHFwgtzru795 GvBnm6ouOYKyqLUeUOdmXFL4S27v c7K3QDLkKNRvHWV4wIN0 yK3kdGhjdqdtsSUxzGxassBtvKiv IPsuIXztQ169HEJpqLjtOaBwLDz5 M7QjHao2RDAzeVmqZW3e uIBbHAwySa1vxVwffQxqDH5sRCEj xqfkf556YnGtp7weHVXppLTwELal HMM1W69fw3T7PHOsTYXp GHQ7xMB0qK0jfKvvvxajvNIpmTwa gcTdmYrwMSnqXSnaI401SSKbcRmk IrGukJq5J9JvGla4ULLs qYebJG5nfMAqQDjeRf1qfPcrfVut JR7oUOTmowpoy113LvPzk5dpZCHo gBWfJXynEHK1T31lm0W1 OCWcVWAxPMS8qYS8lR2bgJmzhabh uHJkhDgrulZngCusCOkuMEriP159 IHRvcDsnPlBhdGllbnQg TEpaBGc3C1UoEhpygQG+GF29LSBc PD36vQKnoTYhm8zbrKm3GcVdQBNi FKV9xIeqXAnah9AaPOAu M94lsCUoy4B5LAChvMnwvOMtQaKz mBT7hU8rOUawdoezy6qtgulvWdxo n2oswb72yS92Z76iJKup CDVnCLQxXCAsEEAorGujqx4kpZ8f Ii8+AXSowVN7rMC8yA9hZVEjLpQ2 LJykT813WbHzySErOvwd o6qic5wgnZh4IoE7TEThjxZiaEty HJZ8y5SxTb94I03oRQatYDHiZMKy IJMaCQFqtPzffc5gpI4v Ii8+KQZbzMN4pQZ3aI5bSsLoRzZ6 XVzsG100EmZyiUTaPvjlG39nA0Jh dXA+MLMhNkh5GPEeaHez WX2azSAbUFhkPl9vQBQ2KwMsLnNu DOclH2VaBUMuxpjvyrbajUO6OKKn MLDeaK62Lm3stWdmVCTd eOVDtK9ofixnj1mmmvbtQdJkVTFh NQm9GGv0MHOwkNziCiYpHSO3ZkZ2 UHD4uDEwzC5zhOzrwhrw bR6pW3YnMWCxgxrwQe14lC5nJyOf LhD1WBhoIuo+U1FCEXhrJEBAU73C GhVYCC35IR20kXXqg5N6 aNJ2S7ZxHKSuidezcdcfsCV4KNUz ZXRfiQ98gSDfKAjyQl3bz4S1a542 BLIlDAQjsH44Jf8gpCto AXIewOVUoJ5cfypht7niwefvCqVn XKCbFYz3UAn2JTZceLupQsNqMIX8 FsO7GQF7wIDbkW7waImb mnzdpN9hYum+TRZnAUJjCAo6Xjkh dGQ+PMYiSFL8lGubCMoxWKPzpM4s KLJgV6x2YoHbYcL9WLrh C0NtAMGvxcbjMt71hC5qAnSjBaL8 ZVxqO9FhrxF2CPGeiKEoUSkzHUJ0 L87qo4X0RNYgCCFrVFN7 qSG6wX3bfPhjxckigLEzjXrzqcJl pVroGKwdDKjbB304IDHnvCyqVyg3 UQfaWGItXA64WL54jIAj z0G9uAO4T9ChRAMjjoqmqacblVB2 PSLaNBSujY01qRPkVFgzHp8hx2F1 q637EXFaYHJfsJ05Ij8z aYvtEWXeyAFKtZ5xuwwph5unooxz KjPnRMOiIDt6FZf5JUEdqJdxEjEo KYN0TmA7TNS3kVGxyR3s iLhpsbfdsB8gRsb+TWFsZTwvdGQ+ VOPdJDV4tBbrKGtuEGIdrF0oOPQs I6o7ZbCjOvP7RApxE1La GCCindjiDr82iF8xEsRgNcF7TVzs W0QvtkH4QNIciTVeDVxfNBS3I27v k0R6SLTkUFPdDGJ4nCD7 oC8syNwixcnapTZksHyzynSxvDop NWzuAErjN434OBMufMiuEcQmHLAf TY6haXybxBQ+ME89wj99 E0XwVvhwWal4IFUxRXS4mXL2yG4s SBNqLQxjv0N0zFN0Z4SsgvFgzy8t y0bfTZBoFUvuC36rmVFd i6R3FYNfqRZ4KOEexOqhQlPyxL32 Oyc+OXIbvMihw1UgKctqv9gpr6yg iDy3OhJgJJKmjxZidAag OZK7m0BoZc88H79qBFoeZUKnAVPl VASjYXUxyPqdgb8wzM8gQh3+PGNv bFL2kAX0tJ2mSzFlVwC2 WXfcG272IqYknSWwMhftq0tfn1el uMk7LxExGYSptxQhqAtlELG8g6Mp Ou95Q2XhaJije2QiGrc4 nl90mHGks9T1mOT6U2QdKCJeapoe yFEprYtlYG5mYBNomlzePYGqzE3r QYBtM0u2VrYwHeF8ZOno C3CdbjB2WJHgdGHpXVTqoRBHdR3b slmnh6xmkonsYkLoPILoHVq0BDu2 TWZphYtoIfTkYRI4KeE9 XAZ4pGQbtH2tzGlurbfqqF6tFag+ YGg3h9wbcYTaMH3zlER5MF05GN51 cQSpv4R2hAO8W3UyAAAe mgqatgsbwXT6WZEhJZBlyQ28Mw1p cVuzUu3sKEIyVPC5QHLaqTLxS1Yu zN3nZrKzPVGgJBQqM1Vc oAUaJLqzP114VDelGsG1AGYnicVd T5GjKCZpcUesMrR0j4O1Kw9VHF33 EO13VH62xKAhd9M4tHG2 Q4SlTSAjneefmyqtpRY2QLItZZOt dX93Qs3fvBtpRo3eCBKcWGE3QMUy jIVvD8AcvF2tBgCkSAOj LSEnD5NxjPAcXMrlU310BMmzDmF3 BBNohnAvH4HaAHQbfHfbVoS9p9K5 Sn6VBe15WF72KO59nSIz k8G7jYG5A4MbZPChomwkfveyyUM7 SMWrNWJffA31Hc2vhYdvNj9yWYHl GBE2SMEitDIiL5QyyU5i ToKoCMWcDTBeS0PlfHWvYHjkZ750 MLctCzE9CXHdenAgY8BkJSKklLmy RqI8q8T6Nc1VKTwsaxy0 K2JwPucwsCZ+VI14VNVjST73pNHw sQXtg9hnmYf1PmVtVNTcXSV4rKfp GQcil1HtDUHoC01uoQQe y7K9ALAx (more content not included)... [facility] Coding Summary. CD:[id number] Ww+PGhlY WQ+SW1KDEAyL45rmKYibL3KM9sBB B3WUYWKAYDTZM5QWK6ncHZ7LCftU 2VybiAv SzldfAVjMZ53PNl6NYX5hZbtQVng qH1myEUmU0l6IrXyZW79gB51SGtw FHDjIjG7AtIguxdcqJLe A4nfRcIxzXPpYiq+PHRhYmxlIHdp HJUkFAzgHIRkVmJfkRjvAF9rPz8l ZGVyLWNvbGxhcHNlOiBj n9hdIQTsWEqeSA5fwHlvX7UkqRS6 CHCte4g5To23dIA+MIQnFGH1fHpk PLsxa185WbAex5ygMXK7 zQJqNAymSGX9C14qd3C3DWXfSOMv ZWQ6eRG8dQ4wrOvizfirZ9RikAXj PjM9IBR3wGKfxF8zqApb cwmuiB5zQgb+S79TTD6KEGARJE6J Qtl8K2NbNmhgaBT+ZL38HMNfLV47 cERbiJCde3zdaHg3FbKx DTQfTGH1hXpzPOqhb3CdMPFjU97t zVRgg6H7ZMArvKixgHXaOuTziIB0 fB1iMDeofeqdu1onbveb Tdzfg4qfti19sQ10Z92oZMulZHDb LUA5KLNyTKXnbEnqsd1ppV3fNv5+ HLzot6kja6kexUw8PmWh DSOoyyOiuQmfYYM4u7ZoSf44S8Mp iWdrn0HvLlz8fy47fRDvn5P9eIP5 CSrwCORmdU4aLXpoJkL3 VLXeLoXcwP60eWYhAKylWq7abEcf uHvzBF3lECFqunxqIRGakX4pDXFt mDCxlRtjQB5bMOMurmyz r399AvXbLRY6MKBybJKrS8LryO9y JaUkQQCuZVThX5XhtLFrZEymB675 XUejJeW0XIBtqxLzZ1Cf PVXklGmyEzX8s9K6Sy8Qr8Zbgbmo FOH1VEcpLORcPkYmLaRcVwO4K4Ak Coy8MWHkuNhcAW2yT5Vr WBUgucwxczankRB7SHFfWVAjhS06 aPKkWJgmSi5vl7M9q199OYIoYOGs uP75Ba8vnWswMDXybRWK hL0kevzht3adzphbXdVbIAFfEVz4 ICe5EGBfdCzePhWpTCM9CdK4FRO6 uTTrwZ2qdLkmcyofwO5a Oyc+A33chQ9xTHI4PRM8bkjeLTBa yyNqDL76SY29I0GdXrwrjPPwnUI+ TXJtssHzfAyqWG9vVoCw u6gwo6QySSugL4LsHEGpZKpgAyy6 HGWbPZY6bMU8qS3cEQAeWRuvj5U2 iQX5E9IxuoYbcn5dy7au MWKwZFlxB53ruWDhh4T6PQGpfBO8 VEQevMkxIqMwaY50Xdi+PGNvbGdy f5FiTnuzi7ehe8ohbJh2 TqKlYPUrhqTgcAliUCF0h5GiMs67 W10xHQpxCKLhJQLkXPWrXFOniThk ug0ccR3sJp4+PGNvbCB3 lXR8mJ2nBDGmIwO8MGfcW552XsKr aWVkDiazc8btd4ihiDz6UgYpCBAe ttMfqRhaAXJ3u8GdLy24 V64uKLqgGNFbVRGpNGLrVMIgeFkk je2gtP6cYu4+TQ2mg1hpee08eI46 dHI+QJBzISV7hWutSAbe WDDdoE7zOFyhWfQ4HAUhKpTxpN88 yMIhFAqiKq8ahGwgfGhxKZ8yWMUl kejhd735OpChr7cuEGOl vDAvXXvaRMH1S18zt4F8WRDeGBFp GGP1dGO1qJ7jxOgchcagnICvzZry fiGpzOizCXsgZIzvS094 IHRvcDsnPlBhdGllbnQgTmFtZTo8 N5OlYpz8MMRpnPvmHL5naOVzCJmw Kn0qoPxdsSlsTX2nSMGf oehbq080AfFkb0jwTRCcoHRuGNis CYN6Q05me3K4TYDeEIOzXLO5bON2 kU6taOeoirgrnIQzcEzz kpNdgUiyJLohAFkiD832JLNewYpq SxBboxFnSWTdgJO9LE78GA24dJXc k6E1tZI2Y9MdALFixmtn ixxboTT2TXHrFMXxoM63Tr3iuOri Dp9sUMFzKIT7AJTurWXdH9GhdZ4p MiXrZEXqIEHgZ8LlzLWa XUooO226WJdkMuP9OBJnfdLtL5He HFHyxSiyEyC2j0X0Sm6MQ5I5ON48 BR62hBYxm6T1qBT6D2Dj VBHvcuwiqgoygGU4RUVeTYEllJ43 Kl9jxHyyXw9hKCHrGBB3LXVveOXl E0RnlG2mYsYfJXYjMVYj B0ZvwATbCXvuG225FJgiNkT1QLQt fhRwS3QfZWJqpJawIvC4j7C5Cu6C INc6GS06RT20rBFdx0X4 wSN6H0OjAUJdivopafzmbZQ6THKd BLVgqV81Yq2cnLduLi8pZGJjFCV4 KORkaPNaJ4JdkS4cIpWe XEUjTOBdK4NpfISkEWwlP135ZYnu UgN6XYBtzkEbR7WvBBVlhMmuEyD3 a9E6Us7TOPLtNW55WKN0 oRX8WT64DY04Y9GtEyegzHCueYL+ PHRhYmxlIHdpZHRoPScxMDAlJyBz kDxxOI5fPl5aPDUyZHIe lPhaaBAvYhPsz7vuPEZsKTmxLK1b yDixR3IxiVJ8YFFfl5g2Te44T38v G3DhbTB+MORjvCW8tBK0 mM2pVoLvZdQ5AHvxU439RjRecZWq Aaqqt6dnl0vkgVv3NjM8FRQygqMs kIoeFFY8e9DhOy92R02b OPtrXIOkHNCiZEVlSTLebRjwdz8s tE5oPh4+RXAivME9vJR5gR6hUuMe JyK3ONjxL963SrKytJCd Zropa7mnn0dsySz9JjOlIOBtgmIt kEslKSF5b8UcIq27D2YzpTupt0Xg Trp2pv46kOVvw2C4yLT3 E8FwXFIgclrtzJWpbMloSO1eJUCj zuthHZEegL2yAJPjF9b9TmTrDsU5 IGtlF5ZpsdJ2BVYomNBd ODbxMJP3J77lg8F6EMBiIWNaIHB2 eCP7sT6auGcohcrshYDchOokibNo oYxzEGudCIriC787NOEf mSrwGDWwbQ4cWSProUMfhWdhVC2x LYTrmmazEesVQGhMDETOIB8HPIFy QTwvdGQ+GLMzQVU9hQnn VZjjCWGemH2zIWMcY3o1RnXkEeT9 JMpkD3ZhKUGzalucHy58fX6wWtRl RpU8ELqfI1LtxfK1PJYo jEVpQKtbVMD9N16fz6Q8RUQxTXIm DOS8yTX3xG8rlIjwaaxogCOfrEnz lgZitHlnGZpbQWfyF429 NRFnyTmoJzYkAaIgPfA0VWd1W9Cp Zyv9TVIomAzgLA7ksZGxYTkpJg6i jAalqFnrTP3hPPXmteqw DDQmuO3lRPQatITvuCieXP4vRCGa jldsg092TpBvSGJ3XNEyjWXdD7Zc aA0iFuQsIFUcQAFcF6Lu hEFcQTazO428RBnrPnL7WOAismId O6PnOBByfIohNfX0c0H4Wj14XdFI ZWFyczwvdGQ+PHRkIHN0 wXgoQZqsYQUciY7pFRPoV9b1YmDn NmE8OSxfT7JiRSEuefawUs68zL2h BhNxTkL1BSbnZ8OjqjH8 QZCxpLClPJatBIK4P45dt1Z1MTTl NJZsLTU4fSO0dF9twZqaoyjzdNRp dDsgdmVydGljYWwtYWxp Z477ZXRbsYicDp6puIK2W9EgTbf8 VGQeoBrvCR6wdJYqEPtqBd7ihVpe iRrnIA7kRHGxauvzQZSr pA2bUHXcdPOvkNxbLK2aBHSofkzh y101JqTjNPI7BKWsfCWsN3UkhB6n CcZlVUBaOUCuN8NtpGEs JDxvZ634PWzrIxT4UPUsjtYsK9To MFPlmCbeQfA4k4N7Ax8RfKIkM0Ww Q6k3Z6KvOsztaIL+PC90 LKClHE11oWPrsWIfr4gtdAo0SdIw STJqPSG9sClxFOgnh6QeRBMlO95d sGNbg3P6IJJjwXltzZAy QvTimYR4wA4kUWbqfnpyq9pwnepi Mdpts5ohmg11eX57P74fEUgaNXRm SZPdLUZnMPKjgUxqyh5w gS8kOx0+MHPdpFA0eSK8dN0cLsBa NrH2CKjvD596JsWghRDwWqowo6py g2ovdVb4ByTaZFOlfzXz fRzvIPN4o3WgKs46B85wNKlsFUFq CKDmASAiRNPaaNvhyo6gnE4sFe6+ GE0hq2kydx88hF42hRE+ NZBpZVO1uDqtHWvwAIExjE0nHEyg NjH5PEHwAwQwaI62vYBfWLldKe7c zQykpUciPX8kWPXylkqk c349HkAcf8hzOAPjoYCzFUjwBJQ3 J71qv8F8JVQgPKZeEDQ6bCE1aD9d bGlnbjogbGVmdDsgdmVy bNyuZZqhWVimJ669VYRvbYfrKcUc wAQmB5azliIZNZ1qKakmcAI+PHRk BKO8qVunWBrjWEVyeP0b ASNuO9v6TpAhDxM5WKwaG3PaxjM1 FJKhgJUhRZKqtKISkB8zjskgb9my okweImZhUENaVDo6GNb8 ENMipJpyMmPxPJK3XvZ2CLD2sHUo fZ7fsDznptbcoM9zHmd+RklOOjwv dGQ+KKEiUUN8nFdkTRpu RFZkqU9rIPWpA3z2WhYzNzF0DFkz H9WhrpK6MLWgiSNgHGEerHMUmT3d fnhjp8skyphbAaRjXPJg KQe5XBg9KLRcxLhbZfIaTCA4LxB1 SNE1wOIhyF3ntJygeguacB4zThb+ TVJOOjwvdGQ+PHRkIHN0 sKsiBOgsGQRkpF3nAWDgU1n3EhHx AfW1XOpcZ5KgdeL7YRNeuGWvCCSs lXPXfO5bxirpt3rchpbt LpNyTMNxORw2XTh2VJClsNncGcNn BLA4OjN5HVG3lTGgmQ3juNthduiw gM2sLsg+GXN9EUC5MU21 TM23C4JoBruezWOtdCN+PHRhYmxl MMtcCOXyUYfuBPNvQtNdjApcIP6x Mv4uUSNzJXRfuSzqaFFn WsOcf6pv (more content not included)... Normal [facility] Coding Summary.on 07-10-2022 Coding Summary. CD:[id number]:[id number] Gh0bWw+P GhlYWQ+RO0YFWGmZ16jnWGsoX7mM 0NMTElOSywgQVBQTElOSyIgbmFtZ A4ffLNuBSYr IC8+JH3cVQKqRxybhRKwg8L5eLK4 R52zti6bNRcwbIM5XIOzStRabqxn d6vnpBi0TMqwNoxyKgYc YBIejN99ODZ9wK89Oo59dPHebKZz b5wmqGr3IyMqNKBnKCM4iSyoJRrs d4AgNUItQ73ozFXtt7K1 RPPnjTcrvVXvNoSacYH5vJ4iFSne yuxmx3abvbciXfi5ej90sORvw2N3 pKQ7I9NxazX5PCPkfKBt JxytiBOKhP0qvvold8ndsqfvZjTa PJScMEb7XQl9XHGqhKtvIeVeUJ36 NKB6MJNvecIlP0UsQAKa bXpjCdR1l3U8Tt4HG7XVCqyhK3QF TUFSWTwvdGQ+JN49ws52G6AeRkmq Dfl7WCVyTKR7rPA8eT6h LYJdKAegj8D6qGD1K0SujaCydw8l x9knKTAtQPjmE50slUErc7F3WXMe jJQ7WIBmuWopNlBbiF81 Oyc+JZJpkOagk6SlJcoac8tmc8bo uWp4FroyQOYfsbMnmKwpRTX5a4Yj Xq5zUJQxeOK4vIT1eR9s IwIaHvU9FUjyC629YzHinHWuPbxg E45aD6JdkBW+HUJuPhh6IOUwcWiz MZ7fL1CeLPOphvgmmNJj xRrmKW4iNFUkzzzyIAEorZ6wMJBc A0e6TkObGuS1UZmbC2XgAGCxvhhi Vx56bP4iJgPsMdS5WBes Z5BzmzO9ZRWsxVSiHIqyVHY9Q44j v4X0AGCoHNMdGKP2oDQ3gQ8dvWfh bjogbGVmdDsgdmVydGlj SCcjBEbbQ226HTVpoGibFfMaVCtl ZyBEYXRlOiAgMDMvMTQvMjAyMzwv dGQ+AWTsPJH4aOmcVOMx sPAkPEvpFx4gtChbsTlhGF8hUMZr yqgpYDWdoN1nFWVeaVTujWhmVL2p GMFthoywl950EoHiJSV4 AJJkjTEnE9EizL7iWqTmLSPqASDd D4UmvFWcUFdyO541MNciFlV0ORSy xmBpZ5VcHDUfuVscPyJ6 o0A9Ye2Si3ZgwmhtE6DanOYsHdAt QwoeUAq0Y7WhLddygMZ+FI03SREn CW15OOw8GGU8xFnfGXzy LRYwN5XboK4dSaJyPLYkLKKcVwm+ PHRhYmxlIHdpZHRoPScxMDAlJyBz sHmjGZ7yPb3qDDGhBWEd zPadeHPsFsZxw8svBJVyCSbvGE4t vSsdV2CmaNA7JRPpb6b0Wy73V75z I5FyqPM+ODMtvUE1pPX3 dZ9fUoEuQgV1OUzbY186ObCawWWi Ctmzr3wjj6dbaMd8TzO0YCXwiiVz yYwfECC3j0ByHx24W07j ZXztKRVnTSYwQKFzESVymNvawf0c hL8xRd8+OGFjvHE9fMM3rT6vUpPv CzQ8VJlcE896PqUdnFSj Ocdqh1xth8cofDv6EtRlIUUzyoSc bXhuOOV7z9AyTv92X3JrdRcut9Uk Cwt7wu81sQCat3S4aIE6 J0ItFERzlfkqqAVsiKevNG0dSLUb zgyoFSManL2lUYBlZ2s8BpYrSbB8 XEcgL1CieiT2CUXphTAx LWWzlCSGtX7jtoaje1ivbjdhJdNe GEByZOl5JKl9CHUaiAgdKgTuKCF2 DtV6QHM0eWTuzS6ykPzu dqogxX0tJug+OXK0lABrtLQRYX1t OjwvdGQ+KLQxSLW8uNzcLYnlYXSx rC6rNUFuQ4n3PcEzCmL9 GVbuT0QgeoU2KNMjzLLdSDVhgZLH pG8jmepcr6jmbtzvUtZqKFHuVCf7 YZu7NVZdmRmbUoOgBSH5 OlI7XIU4iFGfeF2obKsaveuhxZ6o Oyc+LfphsNgqRGF3JKf8M8MrScn7 HRCkfRhpLN8reASfIRem Jj7bpWizoLgyKZ1bJOZrzdbrv172 HjTjk1wzTTSxoPSyJNsePLG8P31n v7A8ZMSkPVKySLR9xDT8 uA4hmQjskqhirVWnlBgsykLwvZyu MEycWAfaY790YPAkcBucVlSyQRv7 E5YmXxw1NARgkSfpJG6m nNCdTCopZq3yhPnvoRncED3rETYr vpqlq267KoTsj3slPFTvnOIyRFrm FDL2X60xs0V6YISjQXYb SPZ5zFL5mS2iqFxufungtLIisApd zgZhzLymZRxlVHxiL802GIVzxXlz HwSjjLe7W2AxXfy6PRIq nXubAP2iaRMgIHfdRr7efYhypNix OP5qDAXubszia248BwBti0azYQYk kVKbEFsrHQP9D70rl9X1 HJUmPJVbOSL1bOZ4qX4htXzimumy kZUqvLnuqwXoyMohVBrrUFavV126 IHRvcDsnPlBhdGllbnQg YMqiUCf7B4ExSojfrSE+RY38MERn RX80lZJubTMul7zskTh3ThCfDJQk UEU8kSnsXEhyo4GgRQGj V89lhUOwt9P6MIFcdNayeMObJxLn wUX0aS4xMNcrkafxm2deafreNeku i5iujl24gN06W14eLJdz MSNvFUUmHPWhOAWuuXhroe2jkH5s Ii8+CCUveBD3cFT2yM6eRWGqRrF4 HAvoB312PsPwiVToZeyo w7waa0yfnEq4LvN4TECfvaNdhFzi TBB5g6FqYd94P31wOMdjJBEbCNZv NYGsUDTpjLskbc0dcO8q Ii8+GCBtwUP4wFE5jF7oZnZyEjS2 GDpkO882KoGfwKUmLukwU06kV1Ex dXA+JFBzNeo6EHTyyQsg ZR4peFPgDCkqYo9sYPU6YwOvVkVk WRbaQ3GaOJJmjzecexctkUQ2RZWo TTYhpI48Fz5fwMckKDDt eBEWsH1wnaddy8bvvsidVwXbLOGb CAk6GFy8GHHlxCjlKoNpAAQ9VxQ7 WRK1dXYojR3mrVjfgmda tE2mD2GaAIHygzrnQq77vA3jTlFo TxV8GDzkTyh+E1FPXAgnSQDUK92P RtBQYI28EE21wBKhj1N6 iPX4Z0HnWAEjqnfcknaafRV8YCYr MKGjiO22pZHbNWwkEs9co7N8c443 RZHiDMNskH34Rs4xhBjc NADvkAXIaG4eijbfe6sdtuutLcNq NWOzKNs4ODu1LFNfzPfpGcAuTSY7 WrU3YDL9iUNlgE7byBuh byvnlV8yWgg+GBQsUUTeRZd7Aneh dGQ+EDIkLSW4uYttIUfwVPUmeU0r CQOwZ9t6BrWqYuD5YSws V1QtBMZzalvnQc59zY7dTiWzBvY2 YJsjD3JqqnZ3CYWsqKKqLOftXOK6 H37zv0P7JEHhIPCkRLW9 lCK0kI5inXoiakxknHNsnUuxynOo vPdwEYfrRGnwB310ICGojDklVmr9 CGutROQgBP58QO92lJXe c1B6aPY1E7XiQFIpaqxeqtrraBZ8 BXZpDVGznQ89pAUuUGxcNv7af2M3 i561MFUpVXMcvP40So9l xDoiOGTmdFRPzQ7vchwpa8fprczb CwLpHBEuICr0BCs0QOAanIozEgHg ZAX5AeH6CSK4bSOmjK4k eTnjcrzchS3rUfz+TWFsZTwvdGQ+ KNHnFDS8qOsjYUstHHLdmR1fNEQn R1f6ZoQnZpT6THzvE2Pc TARhvbvrBi88eN9gTqCjNbB1ZGax H9VhydK6SOVzwFTcNNquUIE4H34j x8K1YUGaLNDaOLS5bEG5 vN6vuJaplfxhmWOfeNlpcpAaoHau AYwcSOqrY854RQItfLmdIk62kRPz xQbdpsX2V4OpMcfulNA+ JG25UPSdDD45rFEhmBLsn8vtvRw7 DyOnVOMkRSW0tHgjXChff5AlZDQs N46rbZUzc2Q0HASteAwt sQPzQhCdmGY2aA8hAAvfaxbeu3ao zswdQpvdk3jiow16vO30Q39qFLpl ZHRoPSIzMCUiIHZhbGln vw6gpP3vAs3+WNSpbGI8rIQ3fP1c ByHxKkC8PJeeJ158PgCdoSHbSxog x9qzu5zcjCp0HaHaBZUy gwMojGepZRE1c1EpCe06N57nVHrd SQTuTCAcHNJlUORgkWetnq6sjC4f Ii8+GK3am3fqin97aS82 dHI+AGFyTOX8aIxpSHdwWKCirV9t XTvbUsT5VTIaCtJbyC62rEKqGRzy Va9dcQvzmBakKR8yUBLb zqbsy536CtFjy7orQLIzaYKyLAxt FPG6O47hc7H2XANaXRLrEEW4yND9 zI1udHjuqenufIKjkQsf pjOklBgmUHwaZNnvG481FWMryCnx XqAbuEWoG1bzshVQQN8kQnzqaDH+ DJOhCQY4sBmhNVbeDPLm wM9mBLPcB6n1LbWiHeY8VDnsL8Om ntC0UKNhpWRxPTIkzIDLhW3zkmhm x5hytkdaMdFdJESfUPb4 WTy4DEWbcIhqYtTaBSR9XgX5DYA3 gGAspR5ddNlxpendvH7vJsd+RklO OjwvdGQ+CXIhKJB7jXsb FDszLYGigN3gRBRzX9y8CnZqFhL0 LHbzO1EntjI7LAKqnUHjNEKhaKJD pZ9qlbwsk4druhiiKtJv MZIzSDn2BEs3HONhhTgxVlBhMOZ9 JrW4QBU4eENffB4cgHaaepgwoW2c Oyc+TVJOOjwvdGQ+PHRk ULU9bWevEJplEZSdeG9aVSMgK9e1 DzSrTbZ5SUtcF9IgoqS7WOScjJPi OJZmdETCsC9bxjwet0uc ibdwCuXoPMKoJKv9SHx9MHWybXhl LmUjFIK3YhR6QYA7bTIqzL9epDds sneixT6sKrk+WMK3XLQ5 IX54NU29R5LmUgdaiTAnjGQ+PHRh YmxlIHdpZHRoPScxMDAlJyBzdHls BH6uOc3mJDLgGSDcuFvv cHNl (more content not included)... Normal [facility] MRI Shoulder w/o Contrast [facility] 07-03-2022 MRI Shoulder w/o Contrast Right [...] Fluid extending into the subacromial subdeltoid bursa. Yehv-ai-hoqz contact of Report the humeral head with the acromion consistent with rotator cuff arthropathy. Ordering Provider: Tulio Vaughan FINAL REPORT Dictated: 07/03/2022 1:09 pm Julio Arcos MD Signed (Electronic Signature): 07/03/2022 1:09 pm Signed by: Julio Arcos MD Transcribed by: KALYANI Technologist: BRODY Technical Comments None [facility] Consent for Treatmenton Consent for Treatment [id number]#1.00CD:127 [facility] RAD - MRI Screening Formon 0 07-02-2022 RAD - MRI Screening Form [id number]#1.00CD:127 [facility] Physician Orderon 06-29-2022 Physician Order [id number]#1.00CD:127 [facility] Pre-Certification Formon Pre-Certification Form [id number]#1.00CD:127 [facility] Discharge Instructionson Discharge Instructions [id number]#1.00CD:127 [facility] ED Clinical Summaryon 2022 ED Clinical Summary (Inserted Image. Linda ble to display) [address] [address] ED Clinical Summary Person Information Name: ESTRADA PFEIFFER/NewEva Age: 77 Years : 1945 Sex: Male Language: South African PCP: Haven Encinas III, DO Marital Status: Phone: [phone] Visit Id: Visit Reason: Shoulder injury - [...] 06/24/2022 23:50:53 06/24/2022 23:50:53 06/24/2022 23:50:53 AD[address]ESS: [address] [id number] PHYS DOC NOTES: MEDICAL INFORMATION: Prescriptions Given: [...] up: With: Address: When: Tulio Vaughan [address] [place] [address] Business (1) In 3 days 06/27/2022 With: Address: When: Haven Encinas [address] [facility] [place], [place] [address] Business (1) In 3 days DIAGNOSIS: Rotator cuff injury Normal [facility] ED Note-Physicianon 06-25-19 ED Note-Physician Basic Information [...] and Complexity of Problems Differential Diagnosis: [] [facility] Data External documents reviewed: Not applicable My [...] Vaughan In 3 days 06/27/2022 EST [address] [place] [address] Business (1) Additional Instructions: Haven Encinas In 3 days [address] [facility] [place] [address]- Business (1) Additional Instructions: Patient Education How To Use a Sling Attestation Patient seen and evaluated by the physician clinical nursing assistant. Attending physician was present in the emergency department and supervised care. This visit was performed by both the physician and an APC. I performed all aspects of the MDM as documented. This report was transcribed using voice recognition software. Every effort was made to ensure accuracy, however, inadvertently computerized pole truck driver mistakes may be present. Appropriate healthcare PPE was used in evaluating this patient. The patient was placed in a mask. The healthcare provider was wearing mask, gloves, and utilizing proper hand hygiene. 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 Normal [facility] Comment on above: Result Comment: Elec tronically [...] 11/27/2004 Document Revised: 03/28/2018 Document Reviewed: 03/06/2018 [employer] Patient Education ? 2019 [employer]. Normal [facility] ED Patient Summaryon 023 ED Patient Summary (Inserted Image. Linda ble to display) [place] [id number] Patient Discharge Instructions Person Information Name: ESTRADA PFEIFFER Age: 77 Years Arrival Date: 06/24/2022 21:36:41 Discharge Diagnosis: Rotator cuff injury Primary Care Physician: Haven Encinas III, DO Provider Information Primary Provider: Josh Obando DO [employer] Laborer:Amadou Hobson PA-C The exam and treatment you received in the Emergency Department were for an urgent problem and are not intended as complete care. It is important that you follow up with a doctor, nurse practitioner, or physician?s clinical nursing assistant for ongoing care. If your symptoms [...] Instructions: With: Address: When: Tulio Vaughan [address] [place] [address] Business (1) In 3 days 06/27/2022 With: Address: When: Haven Encinas [address] [facility], [place] [address] [facility] (1) In 3 days In the event that this physician does not participate in your insurance network, please consult with your insurance company to find a nearby participating provider. Patient Education Materials: How To Use a Sling A MESSAGE TO ALL PATIENTS REGARDING OPIOIDS PRESCRIPTION OPIOIDS: WHAT YOU NEED TO KNOW Prescription opioids can be used to help relieve hyyxqjfk-ok-xflrxj pain and are often prescribed following a [...] addiction, t (more content not included)... Normal [facility] XR Shoulder Complete Righton 06-25-2022 XR Shoulder [...] in mGy = n/a DAP = n/a [facility] Consent for Treatmenton 05-31 Consent for Treatment [id number]#1.00CD:127 [facility] Coding Summary.on 06-04-2022 Coding Summary. CD:[id number] Gh0bWw+P GhlYWQ+WN9CPCDhK91ulLTlhI8PQ 7oPPV9YTOQGBTOYFC7PSV3xeXV5D XbxJ9RbdxDo NbtipAGrUL71HTu6GCM3cBlrQDbx fQ9egXFbL1h1PfYeFF14oR91MHqv WEIbEqY3DoOwfztthVDf U5kaXkQheIXgJuc+PHRhYmxlIHdp YMJfBImqQTJwJiMlcGeiTH5tEx9w ZGVyLWNvbGxhcHNlOiBj k2ygVGReYEnyKH2sxGzhB9IbmIV9 AHJue5n6Or83kVF+VSWjNBC7fXat PUzvw121YuRpt9swNRC8 iAYlXEiqNSW6L13vr2S5OKFqBSGf TTB7lYQ6wN8ytAexisaiR8AoySGd WtX3PTN9cVXimS8hgInm bprhdZ9xAaa+V67EMA3KWIZZOQ7E Ghf3L7YpFzkzvEK+YY88QDWbNT36 wJXiiOLzz3ddpAs6DpTk SLGnGMR2qXbiTOcki2AxVBImQ24j dAEis4V9DIZyoRzomSOfYoAcxRK0 uR1eOZrsbqjzi4slgrti Upnwj6jmze46fT08M21dICzmJJBk OFK0VQCkWYUgiSmwyh4hbL6fKx0+ PWopi5fli5tpuXp1YvXu XOZgnxFkkJllNMO9g3DuMx14U5Lx kCscp2OqNqe7wd09bWAhz4O7vEA0 JWduBMZhwE4tBNxcQwQ6 JFGsHgLlaN26pYRoBLjgRt5coFdo eKkuGF6xRQKmmpmiGYVhyS6qAFWy oZYkxAusLC7kCHAlufxa z833RlPpCIR8AAJbnVFxV0BisL9x SqVyHAOsDHPeQ7PdrWJpWWthS779 NUxrKqZ0YQZqqsJdX8Zf KVCsnHwoZvC0a4N3Ep9Cq7Cnxabb SRF0HFzvWCIiLaE0NfVhRoW5S4Wf Uby6HTLxeRdiLO3aL0Cg TITzuxykhlfxwFZ3YRStYIWufT72 rZKiDMwrLo2ty5B7t108TBTuPRGv bN14Vr4vnBeyHQJbiJPE eI4kbjqxj8xzjetuIdRuGYNhQWf6 ZCw1FEOwuApjMdRlTTT7RgG1DFQ1 xNDgwS2mlNbeswcgbK1z Oyc+Q47zqN3pESQ5IQS6rfokIVXi ghBlTW49PD53S0OsTcltnQLwpVA+ KTOstbXsnCxvXB5yNzJi m2dxy5GoKBhcV3EuIPGhRSpkWjl5 SNXoWUP6rKC6sH0hZTUrJAwjd4P0 oUU5L6HqomXuwm8lz9wa EDJyVUsqM86wyUBfs7M3YEBwuEQ9 BXVhvHgmZhLbqR23Nrb+PGNvbGdy o4DoVgnhk9tim1etxLp8 OmBoKNAddnMfhXirLZQ4d3NtNy22 K74jTOfsQUCwLBNoMJFaXURloItt vl8giZ4rGc7+PGNvbCB3 zLC7sZ5tEZHnPgQ5PExwW295IoWg lVLuGgrbs5boq9mqhSc5ZvMhCARj onNdbJwwSMX3u0ZjRj55 L18bPCosKURdMEGsLZHjINKadEdo qz2kuD7bUr0+UL4hk3mtoa69bW41 dHI+VWIcLQO0wXzkAGvp JBPxwU6bTOhaLlR1GGZuClHbrL12 nWMfQBgvMy7hrQudaFscGP1wWZNl axibh658CbBsi8iaHZRm jACbRFaoQPO6R62hk3U4SBCiEIDd VOM5uKJ9nI2izVcotwvtbSNmpBue jbFhwRycQLybMGbiF921 IHRvcDsnPlBhdGllbnQgTmFtZTo8 I9TcQtd6OLRcdYndPO4esWDlCBte Kf0juXoypBmgPG8wOIBh wlwjn448KhOnp9tbFXBfcMXuOAfz VTE0Z91ov5S9XBTwDWOmWJL9tCB3 wP0tlIceoesghCTttWhz dgLyoQkyLYvdFFonH857JURyyRmz GmBencReIWPpsOG5DE77YV53dNHv j4Q8tAH7T2BxXWCmrytw bqnvsFE9UWSyRJUdwD04Yb3nfEql Ht5uJYMqEAZ8EIIzaSXvM2TbjS4h VcBlJQOmKXYvC3KwjLJr PEspB833FGkeQyQ7PSXmcxJlD6Uq CCNakPwxQeA7l8Y2By6AW4Z4TT21 QV78mMMsn5Y5kQY3O3Wm IUVhfrhbgjvghDK0HPOpVRNtwN02 Fl2mwWrpCv1iEEMsWBB4PBVtoQPe H4RhrX9vNxWwARTsTWUp N1LurLFyMRjmO906LSplNsC8USHc mhBsM8TrVADvuEogPkG6z1U4Gw5O AAf7ZM94AE66sDPdd7F9 iYV7R1YrOMHbhfcetcvhuOM0STAm SGOkeU38Dp1lpUbvJz9jEEMlWDX7 MFFjeFBkV0FhyW1oPwYm FSRrIJFaL6UwfDDhRSsvZ679ZOqx SwY4SEUnzxPtO2PfGWXudOfbSjA9 t0B9Tj2TOUCxJK58JVK9 mWB2BM86EC70T0YvYpquyFPwvWJ+ PHRhYmxlIHdpZHRoPScxMDAlJyBz aAzsAZ7gUw9kJCGsISDw uEighQNhVgOrn1zcMDObJSbvOB4k jYkrD3CcpUP0USJlm4c5Ez60H54c R5CohJT+LQKrjMI2eCM7 iB9eEwGdTdP6JIwxN810ReJyrJIa Gpokl7trg3btwJk2IqF5EGQhteUe vZbeZJG4g4YfVp87J96l LHxnHXZfMNPvKEYjGMNcmQjpsp2u hB9nLc0+QRSdbHC3sOH4sM4qStUm LsB2TRgqM348OeOfeSDg Hewkq0vnw5ebpEo5LaCgLFFngqIw gNduLJH0e4WnIl14I2VslRfzb6Ri Yuj6fw13cWQws8E4oBG0 Z1EhNSKloapwsHFnySklZM2uSYIh zsqtHNCqfF3lOZMmZ8k0GyOkOdM5 SImqC5ThflN3NKDssCDh HPplVKG0D71oy0U7FZIwQMGiWOG7 eTR0mK5hfBgqqbfqvZKlnYhgevIg kPxrPZjnBRltC026RTZq lEbiUNMmiM4eVQAgjWPlcWdgMR6h RDChnrvnAohLULcYTHAPSL2FCZDw QTwvdGQ+JVXoDXQ3sVxd NBjuXDPnpT6xMLHjR8k6FsSrMgA8 ZIdsJ4LuCETzbabzDv00nK1bYsPy FiP2GXseK9QwqqI8QKFk lUCtCIeeSHN9Q70cj6U4NTRyNCUv HFX0mEY4wZ2lrWfvnruvqHJgvSnk gkWtnSybFBfbVCjnC332 RVPygLfiCsXbQbSdWiU7NAi7J0Yd Yqq0EIUgvQeuUB9hnRPiTOxwJt3f sXluqJskVU3rAFAvdzwf WZWqdQ7yRDPeuMCxsTvoYS6kNSLw vxikb831NxFfUKN4AFRpmYZfN0An qZ8sIoTsFQJiSIIxF6Ae yGYkZLaxO708IVsmJzF2MDGllcNy A7ByFCEshOmkJuJ9g6Z1Af66EuCE ZWFyczwvdGQ+PHRkIHN0 hXabCFksWGMwqN6uLJToO4v2AxAg VoU0NTufL7UbOJMeyrniKm06vH2y QpOvRkK0FNfuR8JvneK4 XSKtoYIzYWwjLCL0M66yo6E6SWQh FKKtHTW4kBK1lO8wzOxmbnrrsSPq dDsgdmVydGljYWwtYWxp A985JIWvxRxjGj5yoXN8D7OiKft0 TXZysLqbYZ2seKMqEUdhLb2ftQoy dJmsWO3pVYKbvudqAZOu vL9yHLQaqNNxbXuuWE0dVMXrczgx b467VhTmVLL1CSRygRBjN0CblB2w KwUvVSOtSAClU5GvhDAj GJboP714MVpaKbO3SNJxpaEmB2Nc DQDuiJlgLxX3d4W9Wx9KiIJpLUQw XB93ML90DX72U4VkMbyl dGFibGU+PHRhYmxlIHdpZHRoPScx LIWcErFmxJebAE7gXr7iBWWiFKRa sKdufPFxOuKrt3laSODb ZOvzLN5mrRmkY5MegSV8MQBph6c0 Xb51K53gD4PugKJ+BKDwhCY8sJJ6 iN2mPkSqWqI3RXzeN457 AdOipOOhDjpjp0ecv6ihjZt6YxHj VVGehwPgwQnzTSB6g5DhBk95I85e IHdpZHRoPSIyMCUiIHZh yTakfk6zlP2qAb3+LVWqbJZ4dGW7 kJ4gFgOwWwH4QDnkM667ZmZyaMOw UnynI27iL0VawQA+PHRy Xzl9LZJloCijSF3crNGsZAcmFd7z KWI8WeCqXzQgZOzlH2KsWWHownbo vjdveNS2GFKnGECflQ76 Qn4jcHthHr0aKERwICB8UXPuxVPs B7YfyN7qSrToAZSqELBvG2NiyTVq TMjxR447CTzlEsX9LTTi jwDgX7VqCTHluGncAkA4e4M1Sh5U wKdyaMDtQL8lDpSeMSm8J4RkQka1 FEVkvPriHR8pnZDwUHhf Zr4atMjyfGrlOV4wQWRbscrll396 RcLfh2ozPWZlqBXaWTevUDN3W51d a2M8VOKhEHIeUTC2dNS8 rQ6mrAkydhegjURadUnuwnYgzGuj XFabRXahZ519UUYfxIaaRwEYRay6 P4LhRoz2HCIbgEahRL4a nLOuIEinUf3gzZsvwTagQD1gHNYf sjbvl041HqAui2lfDPSkcTIvJXhx EOE8B41am4S0PYGrUARf UAD3pGU0sZ1swXavydluiNLotDma btPimLqcVZnnLRhuC968GACdzOxo Hp4YOok1G7WtAbt6RLHl uZpkOF4irXTtZDfgWv5qpYashKop WA2zCYDgvhvre876ZoIqd5qqEMTm yICbEHsuCVT9S28cs5F3 THJsSBMoKVZ1jUK3nI2teRrtaecr iZGdcOnjtdWlvDbtZRrkKIsgX053 IHRvcDsnPlBheWVyOjwv dGQ+GX09mv01L6InBcmvSul7PAFo DXY2kSB6oY9tJNYdDZqbe9Q8lAZ9 U9YknfUozu0xs3eeIMIb [employer] (more content not included)... Normal [facility] [place] Office Visit (Cardiology)on 05-31-2022 Follow-up visit Diagnoses/Problems [...] Metabolic Panel; Status:Active - Retrospective Authorization; Requested for:[id number]; Complete Blood Count; Status:Active - Retrospective Authorization; Requested for:[id number]; Atherosclerosis of coronary artery, Hyperlipidemia Renew: Atorvastatin [...] a smoker Tobacco Use Screening; Status:Complete; Done: [id number] Patient Instructions Please bring all medicines, vitamins, [...] several months ago by vascular surgery at [facility]. Lipid profile from recent testing was [...] he had venous stripping last year at [facility] 6. Sleep apnea on CPAP machine with compliance. Summer Deshpande MD, [facility] Surgical History Problems History of Cardiac catheterization [...] for co (more content not included)... Normal [employer] Tobacco Screening.on 023 Fall risk assessment a) No falls within the last year [facility] [employer] DO Work Phone: Tobacco use status CP b) No [facility] [employer] DO Work Phone: Tobacco Screening. Yes [facility] [employer] 250 DO Work Phone: [place] 05-30-2022 ALT No additional P-5'-P [Catalytic activity/Vol] 14 Int._Unit/L Normal 6-46 [facility] [place] Comment on above: Performed By: #### 2 [id number], [id number], [id number] #### [facility] Laboratory [address] [place] [address] [place] 05-30-2022 AST [Catalytic activity/Vol] 16 Int._Unit/L Normal 5-43 [facility] [place] Comment on above: Performed By: #### 2 [id number], [id number], [id number] #### [facility] Laboratory [address] [place] [address] CHEMISTRYOrdered By: SYSTEM SYSTEM on 05-30-2022 ALT [...] [place] Consent for Treatmenton Consent for Treatment [id number]:127 Normal [facility] Lipid Panelon 05-30-2022 Cholesterol [Mass/Vol] 138 mg/dL Normal 120-200 [facility] [place] Comment on above: Performed By: #### 2 [id number], [id number], [id number] #### [facility] Laboratory [address] [place] [address] Cholesterol in HDL [Mass/Vol] 49 mg/dL Invalid Interpretation Code [facility] Comment on above: Result Comment: HDL > or equal to 60 mg/dL: Low cardiovascular risk HDL < 40 mg/dL : High cardiovascular risk Performed By: #### 2 [id number], [id number], [id number] #### [facility] [place] [address] [place] [address] Cholesterol in LDL [Mass/Vol] 71 mg/dL Normal <=129 [facility] [place] Comment on above: Performed By: #### 2 [id number], [id number], [id number] #### [facility] [address] [place] [address] Cholesterol in VLDL [Mass/Vol] 16 mg/dL Normal 7-40 [facility] [place] Comment on above: Performed By: #### 2 [id number], [id number], [id number] #### [facility] [address] [place] [address] Triglyceride [Mass/Vol] 82 mg/dL Normal <=149 [facility] [place] Comment on above: Performed By: #### 2 [id number], [id number], [id number] #### [facility] [address] [place] [address] Physician Orderon 05-30-2022 Physician Order [id number]:127 Normal [facility] [place] CHEMISTRYOrdered By: SYSTEM SYSTEM on 02-06-2022 Prostate specific Ag [Mass/Vol] ng/mL Normal 0.1 - 3.5 ng/mL [facility] [place] Screening (Age 18+)on 11-16-2021 Adult depression screening assessment No [facility] [employer] 250 DO Work Phone: Fall risk assessment a) No falls within the last year [facility] [employer] 250 DO Work Phone: Tobacco Screening.on 022 Fall risk assessment b) One or more falls in the last year [facility] [employer] 250 DO Work Phone: Tobacco use status CP b) No [facility] [employer] 250 DO Work Phone: Vital Signs Date Time Vital Sign Value Performing Clinician Facility 05-24-2023 13:10-0500 Blood Pressure Location Izaguirre Sarmini [facility] 05-24-2023 13:10-0500 Diastolic blood pressure 82 mm[Hg] Izaguirre Sarmini [facility] 05-24-2023 13:10-0500 Heart rate 68 /min Izaguirre Sarmini [facility] 05-24-2023 13:10-0500 Respiratory rate 16 /min Izaguirre Sarmini [facility] 05-24-2023 13:10-0500 Systolic blood pressure 138 mm[Hg] Izaguirre Sarmini [facility] 05-09-2023 11:00-0500 Diastolic blood pressure 78 mm[Hg] Izaguirre Sarmini [facility] 05-09-2023 11:00-0500 Heart rate 53 /min Izaguirre Sarmini [facility] 05-09-2023 11:00-0500 Mean blood pressure 99 mm[Hg] Izaguirre Sarmini [facility] 05-09-2023 11:00-0500 Respiratory rate 17 /min Izaguirre Sarmini [facility] 05-09-2023 11:00-0500 SaO2% (BldA) [Mass fraction] 97 % Izaguirre Sarmini [facility] 05-09-2023 11:00-0500 Systolic blood pressure 141 mm[Hg] Izaguirre Sarmini [facility] 05-09-2023 10:45-0500 Diastolic blood pressure 75 mm[Hg] Izaguirre Sarmini [facility] 05-09-2023 10:45-0500 Heart rate 60 /min Izaguirre Sarmini [facility] 05-09-2023 10:45-0500 Mean blood pressure 93 mm[Hg] Izaguirre Sarmini [facility] 05-09-2023 10:45-0500 Respiratory rate 23 /min Izaguirre Sarmini [facility] 05-09-2023 10:45-0500 SaO2% (BldA) [Mass fraction] 96 % Izaguirre Sarmini [facility] 05-09-2023 10:45-0500 Systolic blood pressure 128 mm[Hg] Izaguirre Sarmini [facility] 05-09-2023 10:40-0500 Diastolic blood pressure 85 mm[Hg] Izaguirre Sarmini [facility] 05-09-2023 10:40-0500 Heart rate 59 /min Izaguirre Sarmini [facility] 05-09-2023 10:40-0500 Mean blood pressure 97 mm[Hg] Izaguirre Sarmini [facility] 05-09-2023 10:40-0500 Respiratory rate 12 /min Izaguirre Sarmini [facility] 05-09-2023 10:40-0500 SaO2% (BldA) [Mass fraction] 95 % Izaguirre Sarmini [facility] 05-09-2023 10:40-0500 Systolic blood pressure 122 mm[Hg] Izaguirre Sarmini [facility] 05-09-2023 10:30-0500 Body temperature 98.06 [degF] Izaguirre Sarmini [facility] 05-09-2023 10:25-0500 Respiratory rate 16 /min Izaguirre Sarmini [facility] 05-09-2023 10:20-0500 Respiratory rate 15 /min Izaguirre Sarmini [facility] 05-09-2023 10:15-0500 Respiratory rate 15 /min Izaguirre Sarmini [facility] 05-09-2023 09:35-0500 Blood Pressure Location Izaguirre Sarmini [facility] 05-09-2023 09:35-0500 Body temperature 98.06 [degF] Izaguirre Sarmini [facility] 05-02-2023 16:00-0500 Body height 180.34 cm Priscila Mccormack Other [employer] Other 05-02-2023 16:00-0500 Body mass index (BMI) [Ratio] 35.56 kg/m2 Priscila Mccormack Other [employer] Other 05-02-2023 16:00-0500 Body weight 115.67 kg Priscila Mccormack Other [employer] Other 05-02-2023 16:00-0500 Diastolic blood pressure 90 mm[Hg] Priscila Mccormack Other [employer] Other 05-02-2023 16:00-0500 SaO2% (BldA) [Mass fraction] 97 % Priscila Mccormack Other [facility] [employer] Other 05-02-2023 16:00-0500 Systolic blood pressure 130 mm[Hg] Priscila Mccormack Other [facility] [employer] Other 03-18-2023 10:36-0500 Blood Pressure Location Izaguirre Sarmini [facility] 03-18-2023 10:36-0500 Diastolic blood pressure 82 mm[Hg] Izaguirre Sarmini [facility] 03-18-2023 10:36-0500 Heart rate 70 /min Izaguirre Sarmini [facility] 03-18-2023 10:36-0500 Respiratory rate 18 /min Izaguirre Sarmini [facility] 03-18-2023 10:36-0500 Systolic blood pressure 136 mm[Hg] Izaguirre Sarmini [facility] 03-06-2023 15:22-0500 Diastolic blood pressure 85 mm[Hg] ANJELICA MATTHEW [facility] 03-06-2023 15:22-0500 Heart rate 74 /min ANJELICA MATTHEW [facility] 03-06-2023 15:22-0500 Systolic blood pressure 137 mm[Hg] ANJELICA MATTHEW [facility] 12-17-2022 13:33-0400 Body height 180.34 cm Haven Encinas Work Phone: [facility] 250 DO Work Phone: 12-17-2022 13:33-0400 Body mass index (BMI) [Ratio] 34.84 kg/m2 Haven Sindy Encinas Work Phone: [facility] 250 DO Work Phone: 12-17-2022 13:33-0400 Body surface area Derived from formula 2.32 m2 Haven Sindy Encinas Work Phone: [facility] 250 DO Work Phone: 12-17-2022 13:33-0400 Body weight 113.31 kg Haven Sindy Encinas Work Phone: [facility] 250 DO Work Phone: 12-17-2022 13:33-0400 Diastolic blood pressure 72 mm[Hg] Haven Sindy Encinas Work Phone: [facility] 250 DO Work Phone: 12-17-2022 13:33-0400 Heart rate 54 /min Haven Sindy LarsonEncinas Work Phone: [facility] 250 DO Work Phone: 12-17-2022 13:33-0400 Systolic blood pressure 118 mm[Hg] Haven Sindy Encinas Work Phone: [facility] 250 DO Work Phone: 10-03-2022 13:51-0400 Blood Pressure Location ANJELICA NATION [facility] 10-03-2022 13:51-0400 Diastolic blood pressure 74 mm[Hg] ANJELICA MICHELERY [facility] 10-03-2022 13:51-0400 Heart rate 68 /min ANJELICA MATTHEW [facility] 10-03-2022 13:51-0400 Respiratory rate 16 /min ANJELICA NATION [facility] 10-03-2022 13:51-0400 Systolic blood pressure 132 mm[Hg] ANJELICA NATION [facility] 06-24-2022 22:35-0500 Nursing Progress Note Reason Other: portable XR at bedside at this time. Josh Topher [facility] 06-24-2022 21:44-0500 Body temperature 97.7 [degF] Josh Topher [facility] 06-24-2022 21:44-0500 Diastolic blood pressure 91 mm[Hg] Josh Topher [facility] 06-24-2022 21:44-0500 Heart rate 63 /min Josh Topher [facility] 06-24-2022 21:44-0500 Respiratory rate 18 /min Josh Topher [facility] 06-24-2022 21:44-0500 SaO2% (BldA) [Mass fraction] 98 % Josh Topher [facility] 06-24-2022 21:44-0500 Systolic blood pressure 178 mm[Hg] Josh Topher [facility] 05-31-2022 09:15-0500 Body height 180.34 cm Haven Encinas Work Phone: [facility] [employer] 250 DO Work Phone: 05-31-2022 09:15-0500 Body mass index (BMI) [Ratio] 35.29 kg/m2 Haven Encinas Work Phone: [facility] [employer] 250 DO Work Phone: 05-31-2022 09:15-0500 Body surface area Derived from formula 2.33 m2 Haven Sindy LarsonEncinas Work Phone: [facility] 250 DO Work Phone: 05-31-2022 09:15-0500 Body weight 114.76 kg Haven Larsoners Work Phone: [facility] 250 DO Work Phone: 05-31-2022 09:15-0500 Diastolic blood pressure 84 mm[Hg] Haven Larsoners Work Phone: [facility] 250 DO Work Phone: 05-31-2022 09:15-0500 Heart rate 68 /min Haven Encinas Work Phone: [facility] [employer] 250 DO Work Phone: 05-31-2022 09:15-0500 Systolic blood pressure 122 mm[Hg] Haven Encinas Work Phone: [facility] [employer] 250 DO Work Phone: 01-31-2022 16:00-0400 Body height 180.34 cm Priscila Mccormack Other [employer] Other 01-31-2022 16:00-0400 Body mass index (BMI) [Ratio] 35.28 kg/m2 Priscila Mccormack Other [employer] Other 01-31-2022 16:00-0400 Body temperature 97.1 [degF] Priscila Mccormack Other [employer] Other 01-31-2022 16:00-0400 Body weight 114.76 kg Priscila Mccormack Other [employer] Other 10-05-2022 16:00-0400 Diastolic blood pressure 78 mm[Hg] Priscila Mccormack Other [employer] Other 01-31-2022 16:00-0400 SaO2% (BldA) [Mass fraction] 96 % Priscila Mccormack Other [employer] Other 01-31-2022 16:00-0400 Systolic blood pressure 123 mm[Hg] Priscila Mccormack Other [employer] Other 01-29-2022 09:21-0400 Blood Pressure Location Milla Montoya [facility] 01-29-2022 09:21-0400 Diastolic blood pressure 80 mm[Hg] Milla Montoya [facility] 01-29-2022 09:21-0400 Heart rate 90 /min Milla Montoya [facility] 01-29-2022 09:21-0400 SaO2% (BldA) [Mass fraction] 100 % Milla Montoya [facility] 01-29-2022 09:21-0400 Systolic blood pressure 146 mm[Hg] Milla Montoya [facility] 12-11-2021 23:00-0400 Diastolic blood pressure 80 mm[Hg] Reji Dickinson [facility] 12-11-2021 23:00-0400 Heart rate 58 /min Reji Dickinson [facility] 12-11-2021 23:00-0400 SaO2% (BldA) [Mass fraction] 98 % Reji Dickinson [facility] 12-11-2021 23:00-0400 Systolic blood pressure 148 mm[Hg] Reji Dickinson [facility] 12-11-2021 22:33-0400 Body temperature 98.24 [degF] Reji Dickinson [facility] 12-11-2021 22:33-0400 Diastolic blood pressure 76 mm[Hg] Reji Dickinson [facility] 12-11-2021 22:33-0400 Heart rate 57 /min Reji Dickinson [facility] 12-11-2021 22:33-0400 Respiratory rate 16 /min Reji Dickinson [facility] 12-11-2021 22:33-0400 SaO2% (BldA) [Mass fraction] 97 % Reji Dickinson [facility] 12-11-2021 22:33-0400 Systolic blood pressure 159 mm[Hg] Reji Dickinson [facility] 11-16-2021 09:24-0400 Body height 180.34 cm Haven Encinas Work Phone: [facility] [employer] 250 DO Work Phone: 11-16-2021 09:24-0400 Body mass index (BMI) [Ratio] 35.29 kg/m2 Haven Encinas Work Phone: [facility] [employer] 250 DO Work Phone: 11-16-2021 09:24-0400 Body surface area Derived from formula 2.33 m2 Haven Encinas Work Phone: [facility] 250 DO Work Phone: 11-16-2021 09:24-0400 Body weight 114.76 kg Haven Encinas Work Phone: [facility] 250 DO Work Phone: 11-16-2021 09:24-0400 Diastolic blood pressure 84 mm[Hg] Haven R Encinas Work Phone: [facility] 250 DO Work Phone: 11-16-2021 09:24-0400 Heart rate 62 /min Haven R Encinas Work Phone: [facility] 250 DO Work Phone: 11-16-2021 09:24-0400 Systolic blood pressure 122 mm[Hg] Haven R Encinas Work Phone: [facility] 250 DO Work Phone: 05-08-2021 13:46-0500 Diastolic blood pressure 84 mm[Hg] Haven R Encinas Work Phone: [facility] 250 DO Work Phone: 05-08-2021 13:46-0500 Systolic blood pressure 126 mm[Hg] Haven R Encinas Work Phone: [facility] 250 DO Work Phone: 05-08-2021 13:41-0500 Diastolic blood pressure 93 mm[Hg] Haven R Encinas Work Phone: [facility] 250 DO Work Phone: 05-08-2021 13:41-0500 Systolic blood pressure 132 mm[Hg] Haven R Encinas Work Phone: [facility] 250 DO Work Phone: 05-08-2021 13:39-0500 Body height 180.34 cm Haven R Encinas Work Phone: [facility] 250 DO Work Phone: 05-08-2021 13:39-0500 Body mass index (BMI) [Ratio] 35.01 kg/m2 Haven R Encinas Work Phone: [facility] 250 DO Work Phone: 05-08-2021 13:39-0500 Body surface area Derived from formula 2.32 m2 Haven Encinas Work Phone: [facility] 250 DO Work Phone: 05-08-2021 13:39-0500 Body weight 113.85 kg Haven Encinas Work Phone: [facility] 250 DO Work Phone: 05-08-2021 13:39-0500 Diastolic blood pressure 87 mm[Hg] Haven Encinas Work Phone: [facility] 250 DO Work Phone: 05-08-2021 13:39-0500 Heart rate 60 /min Haven Encinas Work Phone: [facility] 250 DO Work Phone: 05-08-2021 13:39-0500 Systolic blood pressure 136 mm[Hg] Haven Encinas Work Phone: [facility] 250 DO Work Phone: Encounters Encounter Date Encounter Type Care Provider Facility Start: 06-18-2023 End: 06-18-2023 ambulatory JESUS PANDEY Not Available Start: 05-24-2023 End: 05-25-2023 ambulatory Izaguirre Talal Sarmini [facility] Start: 05-24-2023 End: 05-25-2023 ambulatory Izaguirre Talal Sarmini Facility:[facility] Start: 05-24-2023 End: 05-24-2023 Patient encounter procedure Izaguirre Talal Sarmini [facility] Start: 05-24-2023 End: 05-24-2023 Patient encounter procedure Izaguirre Talal Sarmini [facility] Start: 05-14-2023 End: 05-14-2023 ambulatory STEPHANIE RODNEY Not Available Start: 05-09-2023 End: 2023 ambulatory Izaguirre Talal Sarmini Facility[facility] Start: 05-09-2023 End: 05-09-2023 Patient encounter procedure Izaguirre Talal Sarmini [facility] Start: 05-06-2023 End: 05-06-2023 ambulatory Priscila Mccormack Other [employer] Other Start: 05-06-2023 Telephone encounter Priscila Mccormack [facility] Start: 05-02-2023 End: 05-02-2023 Patient encounter procedure DO Haven Larsoners III Work Phone: [facility] Work Phone: Start: 05-02-2023 End: 05-02-2023 ambulatory DO Haven R Encinas III Work Phone: [facility] Work Phone: Start: 05-02-2023 Office outpatient vi sit 15 minutes Priscilaalex Mccormack [facility] Start: 03-25-2023 End: 03-25-2023 ambulatory KAYLI PARSON Not Available Start: 03-18-2023 End: 03-19-2023 ambulatory Haven R Encians Facility:[facility] Start: 03-18-2023 End: 03-18-2023 Patient encounter procedure Izaguirre Talal Sarmini [facility] Start: 03-06-2023 End: 03-07-2023 ambulatory ANJELICA NATION Facility:[facility] Start: 03-06-2023 End: 03-06-2023 Patient encounter procedure ANJELICA NATION [facility] Start: 03-05-2023 End: 03-06-2023 ambulatory ANJELICA NATION Facility[facility] Start: 03-05-2023 End: 03-05-2023 Patient encounter procedure ANJELICA NATION [facility] Start: 02-06-2023 End: 02-07-2023 ambulatory Todd CRUZ Facility:[facility] Start: 02-06-2023 End: 02-06-2023 Lab Drop off Todd CRUZ [facility] Start: 02-06-2023 End: 02-06-2023 Patient encounter procedure Todd CRUZ [facility] Start: 12-17-2022 Office outpatient vi sit 25 minutes Haven Encinas Work Phone: [facility] 250 DO Work Phone: Start: 12-17-[address] Haven Encinas III Facility: Start: 11-19-2022 ambulatory Izaguirre Jessiemarium Facili ty:[facility] Start: 10-16-2022 End: 10-17-2022 ambulatory Todd CRUZ Facility:[facility] Start: 10-16-2022 End: 10-16-2022 Patient encounter procedure Todd CRUZ [facility] Start: 10-11-2022 End: 10-12-2022 ambulatory ANJELICA NATION Facility:[facility] Start: 10-11-2022 End: 10-11-2022 Patient encounter procedure ANJELICA NATION [facility] Start: 10-03-2022 End: 10-04-2022 ambulatory ANJELICA NATION Facility:[facility] Start: 10-03-2022 End: 10-03-2022 Lab Drop off ANJELICA NATION [facility] Start: 10-03-2022 End: 10-03-2022 Patient encounter procedure ANJELICA NATION [facility] Start: 09-25-2022 Rx Renewal [facility] Work [facility]: Start: 07-02-2022 End: 07-03-2022 ambulatory Tulio Vaughan Facility:[facility] Start: 07-02-2022 End: 07-02-2022 Patient encounter procedure Tulio Vaughan [facility] Start: 06-24-2022 End: 06-25-2022 Emergency department patient visit Josh Valentine Obando Facility:[facility] Start: 06-24-2022 End: 06-24-2022 Emergency department patient visit Josh SParveen Obando [facility] Start: 06-14-2022 End: 06-14-2022 ambulatory Priscila Mccormack Other [employer] Other Start: 06-14-2022 Telephone encounter Priscila Mccormack [facility] Ur[facility] Start: 05-31-[address] Summer Deshpande Facility: Start: 05-31-2022 Office outpatient vi sit 25 minutes Haven Encinas Work Phone: [facility] [employer] 250 DO Work Phone: Start: 05-30-2022 End: 05-31-2022 ambulatory Summer Deshpande Facility:[facility] Start: 05-30-2022 End: 05-30-2022 Patient encounter procedure Summer Deshpande [facility] Start: 02-06-2022 End: 02-06-2022 Patient encounter procedure Todd CRUZ [facility] Start: 01-31-2022 End: 01-31-2022 Patient encounter procedure DO Haven Encinas III Work Phone: [facility] Start: 01-31-2022 End: 01-31-2022 ambulatory DO Haven Encinas III Work Phone: [facility] Work Phone: Start: 01-31-2022 Office outpatient vi sit 25 minutes [facility] Start: 01-29-2022 End: 01-29-2022 Patient encounter procedure Milla Montoya [facility] Start: 01-18-2022 End: 01-18-2022 Patient encounter procedure Milla Montoya [facility] Start: 12-11-2021 End: 12-11-2021 Emergency department patient visit Reji Dickinson [facility] Start: 11-16-2021 Office outpatient vi sit 25 minutes [facility] Work Phone: Start: 10-25-2021 Rx Renewal Haven Lee rs Work Phone: [facility] 250 DO Work Phone: Start: 08-23-2021 End: 08-23-2021 Patient encounter procedure DO Havenamy Encinas III Work Phone: [facility] Start: 05-08-2021 Office outpatient vi sit 25 minutes Haven Encinas Work Phone: [facility] 250 DO Work Phone: Procedures Date [...] Activity Detail Author Start: 03-12-2024 ambulatory Ambulatory Facility:[facility] Start: 06-25-2023 FUV, Provider: Summer Deshpande, Status: Pen, Time: 9:20 AM FUV, Provider: Summer Deshpande, Status: Pen, Time: 9:20 AM [facility] 250 DO Work Phone: Start: 11-29-2022 FUV, Provider: Summer Deshpande, Status: Pen, Time: 9:10 AM FUV, Provider: Summer Deshpande, Status: Pen, Time: 9:10 AM [facility] 250 DO Work Phone: Start: 05-31-2022 FUV, Provider: Summer Deshpande, Status: Pen, Time: 9:00 AM [facility]UV, Provider: Summer Deshpande, Status: Pen, Time: 9:00 AM [place] [address] DO Work Phone: Start: 11-16-2021 FUV, Provider: Summer Deshpande, Status: Pen, Time: 9:00 AM FUV, Provider: Summer Deshpande, Status: Pen, Time: 9:00 AM [place] [address] DO Work Phone: Immunizations Immunization Date Immunization Notes Care Provider [facility] 02-19-2023 influenza virus vaccine, unspecified formulation ANJELICA MICHELERY [facility] 02-05-2022 Fluzone High-Dose Quadrivalent 0.7 ML Intramuscular Suspension Prefilled Syringe Haven Sindy Encinas Work Phone: [place] [address] DO Work Phone: 02-05-2022 influenza virus vaccine, unspecified formulation Wheeler Deshpande [facility] 01-16-2022 SARS-CoV-2 (COVID-19 ) [id number] Summer Deshpande [facility] 03-01-2021 Moderna COVID-19 Vaccine 100 MCG/0.5ML Intramuscular Suspension Haven Encinas Work Phone: [place] [address] DO Work Phone: 02-21-2021 influenza virus vaccine, unspecified formulation Wheeler Deshpande [facility] 02-21-2021 influenza, high dose seasonal, preservative-free Haven Larsoners Work Phone: [place] [address] DO Work Phone: 12-29-2020 tetanus toxoid, redu ivan diphtheria toxoid, and acellular pertussis vaccine, adsorbed Haven Encinas Work Phone: [facility] 250 DO Work Phone: 06-22-2020 Moderna COVID-19 Vaccine 100 MCG/0.5ML Intramuscular Suspension Haven Encinas Work Phone: [facility] 250 DO Work Phone: Comment on above: Reason for Medicatio n: Other (see comment) 05-25-2020 Moderna COVID-19 Vaccine 100 MCG/0.5ML Intramuscular Suspension Haven Encinas Work Phone: [facility] 250 DO Work Phone: Comment on above: Reason for Medicatio n: Other (see comment) 02-08-2020 influenza virus vaccine, unspecified formulation Summer Deshpande [facility] 02-08-2020 influenza, high dose seasonal, preservative-free Haven Encinas Work Phone: [place] [address] DO Work Phone: 05-16-2018 pneumococcal conjuga te vaccine, 13 valent Haven Encinas Work Phone: [facility] 05-08-2018 pneumococcal conjuga te vaccine, 13 valent Haven Encinas Work Phone: [place] [address] DO Work Phone: 04-29-2018 influenza virus vaccine, unspecified formulation Haven Encinas Work Phone: [place] [address] DO Work Phone: 04-28-2018 influenza virus vaccine, unspecified formulation Summer Deshpande [facility] 05-08-2017 pneumococcal polysaccharide vaccine, 23 valent Haven Encinas Work Phone: [place] [address] DO Work Phone: 02-27-2017 influenza virus vaccine, unspecified formulation Haven Larsoners Work Phone: [place] [address] DO Work Phone: 02-16-2017 influenza virus vaccine, unspecified formulation Wheeler Deshpande [facility] 02-16-2017 influenza, seasonal, injectable, preservative free Haven Encinas Work Phone: [place] [address] DO Work Phone: 05-08-2016 influenza virus vaccine, unspecified formulation Haven Encinas Work Phone: [place] [address] DO Work Phone: 01-30-2016 influenza virus vaccine, unspecified formulation Wheeler Deshpande [facility] 01-30-2016 influenza, seasonal, injectable Haven Encinas Work Phone: [place] [address] DO Work Phone: 01-30-2016 pneumococcal polysaccharide vaccine, 23 valent Haven Encinas Work Phone: [facility] 03-29-2015 pneumococcal vaccine , unspecified formulation Haven Larsoners Work Phone: [place] [address] DO Work Phone: 02-27-2015 influenza virus vaccine, unspecified formulation Haven Larsoners Work Phone: [place] [address] DO Work Phone: 02-22-2015 influenza virus vaccine, unspecified formulation Wheeler Deshpande [facility] 04-16-2014 pneumococcal polysaccharide vaccine, 23 valent Reji Dickinson [facility] Comment on above: Early/Late Reason: [facility] 03-03-2014 influenza virus vaccine, unspecified formulation Haven Encinas Work Phone: [place] [address] DO Work Phone: 02-16-2014 influenza virus vaccine, unspecified formulation Wheeler Deshpande [facility] 02-16-2014 influenza, seasonal, injectable Haven Encinas Work Phone: [place] [address] DO Work Phone: 02-18-2013 influenza virus vaccine, unspecified formulation Wheeler Deshpande [facility] 02-18-2013 influenza, high dose seasonal, preservative-free Haven Encinas Work Phone: [place] [address] DO Work Phone: 01-27-2013 influenza virus vaccine, unspecified formulation Haven R Encinas Work Phone: [place] [address] DO Work Phone: 01-04-2013 zoster vaccine, live Wheeler Deshpande [facility] 12-28-2012 zoster vaccine, live Haven R Encinas Work Phone: [place] [address] DO Work Phone: NEGATED: Highlighted row has not occurred!02-18-2023 influenza virus vaccine, unspecified formulation ANJEILCA NATION [facility] Health Payers Date Payer Category Payer Private Health Insurance 101 [id number] 2022 [facility]-pay [id number] 1945 Unknown [id number] 2.16. [id number] 1945 Unknown [id number] 2.16. 840.1.041791.3.579.2.356 1945 Unknown [id number] 2.16.8 40.1.123199.3.579.2.72 1945 Unknown [id number] 2.16.8 40.1.983053.3.579.2. 1945 Unknown [id number] 2.16.8 40.1.117091.3.579.2.72 1946 Unknown [id number] 2.16.8 40.1.286801.3.579.2.72 1946 Unknown [id number] 2.16.8 40.1.618126.3.579.2.72 1946 Unknown [id number] 2.16.8 40.1.057654.3.579.2.727 1945 Unknown [id number] 2.16.8 40.1.258569.3.579.2.72 1946 Unknown [id number] 2.16.8 40.1.498612.3.579.2.72 1946 Unknown [id number] 2.16.8 40.1.959799.3.579.2.72 1946 Unknown [id number] 2.16.8 40.1.222614.3.579.2. 1945 Unknown [id number] 2.16.8 40.1.853169.3.579.2.72 1946 Unknown [id number] 2.16.8 40.1.161138.3.579.27 1946 Unknown [id number] 2.16.8 40.1.161974.3.579.2.727 1946 Unknown [id number] 2.16.8 40.1.227842.3.579.2.727 1946 Unknown [id number] 2.16.8 40.1.395880.3.579.2.727 1945 Unknown [id number] 2.16.8 40.1.051103.3.579.2.727 1945 Unknown [id number] 2.16.84 0.1.294552.3.579.2.1259 1945 Unknown [id number] 2.16.84 0.1.445431.3.579.2.1259 1945 Unknown [id number] 2.16.840 .1.116656.3.579.2.1259 Private Health Insurance [facility] [id number] Unknown [employer] Unknown [id number] 2.16.8 40.1.945844.3.579.2.531 Social History Date Type Detail Facility No alcohol use No alcohol use [facility] 250 DO Work Phone: Comment on above: 1-2 cups of coffee; Start: 1945 Sex Assigned At Male [facility] Tobacco [facility] Comment on above: Denies. Sex Assigned At Male [facility] Tobacco smoking status No Smokin g Status Entered [facility] Start: 02-07-2022 End: 05-24-2023 Tobacco smoking status Never smoked tobacco (finding) [facility] Tobacco smoking status Never [facility] Medical Equipment Procedure Code Equipment Code Equipment Origin al Text Equipment Identifier Dates KNEE TOTAL ROBOT ARTHROPLASTY Tulio Vaughan DO 06/27/21 Non Biological Knee R {[id number] [id number]{17}[id number] FDA Start: 06-27-2021 Unknown Unknown 05/09/23 Non Biological Unknown FDA Start: 05-09-2023 FDA Start: 05-09-2023 Unknown Unknown 05/09/23 Non Biological Unknown FDA Start: 05-09-2023 FDA Start: 05-09-2023 Unknown Unknown 05/09/23 Non Biological Unknown FDA Start: 05-09-2023 FDA Start: 05-09-2023 Functional Status Date Assessment Result Facility 05-24-2023 Functional Status N/A [facility] 05-09-2023 Functional Status N/A [facility] 03-18-2023 Functional Status N/A [facility] 03-06-2023 Functional Status N/A [facility] [place] 10-16-2022 Functional Status N/A [facility] 10-03-2022 Functional Status N/A [facility] [place] 06-24-2022 Functional Status N/A [facility] 01-29-2022 Functional Status No [facility] 12-11-2021 Functional Status N/A [facility] Clinical Notes 04-29-2011 to 2023 Note Date & Type Note Facility 2023 Note [id number] [facility] 05-09-2023 Note Endoscopy Care After Procedure Please [...] Document Re-Released: 10/07/2006 ExitCare? Patient Information ?2009 Yasuu. Colonoscopy Care After Surgery Please read the [...] through easily. You (more content not included)... [facility] 05-09-2023 Hospital Discharg e instructions Patient Education 05/09/2023 10:37:16 Endoscopy, Care After Procedure [facility]) Endoscopy Care After Procedure Please read [...] blood. Document Released: 11/27/2004 Document Re-Released: 10/07/2006 [employer] Patient Information 2010 Yasuu. 05/09/2023 10:37:12 Siu's Esophagus Siu's Esophagus Siu's [...] drinks. ?Tomatoes and foods made with tomatoes. ?[place] or spicy foods. ?Chocolate and peppermint. Do not drink alcohol. General instructions Take hmes-xwe-ghswpvx and prescription medicines only as told by [...] provider. Document Revised: 07/02/2020 Document Reviewed: 07/02/2020 [employer] Patient Education 2022 PingMe. 05/09/2023 10:36:59 Esophagitis Esophagitis Esophagitis is inflammation [...] Follow these instructions at home: Medicines Take zlga-lbc-snnzxlc and prescription medicines only as told by [...] powder, vinegar, hot sauces, and barbecue sauce. ?[place] fruit juices and citrus fruits, such as oranges, mati, and limes. ?Tomato-based foods, such as red sauce, chili, salsa, and pizza with red sauce. ?Fried and fatty foods, such as donuts, jamaican fries, potato chips, and high-fat dressings. ?High-fat [...] provider. Document Revised: 10/24/2020 Document Reviewed: 10/24/2020 [employer] Patient Education 2022 PingMe. 05/09/2023 10:36:53 Gastritis, Adult, Tghw-vy-Pycm Gastritis, Adult Gastritis is irritation and swelling [...] Follow these instructions at home: Medicines Take zjle-qki-izhfhgs and prescription medicines only as told by [...] provider. Document Revised: 08/19/2021 Document Reviewed: 08/19/2021 [employer] Patient Education 2022 PingMe. 05/09/2023 10:36:47 Hiatal Hernia Hiatal Hernia A [...] reduce GERD symptoms. Medicines. These may include: ?Cege-ees-ftytxnn antacids. ?Medicines that make your stomach empty [...] may include: ?Fatty foods, like fried foods. ?[place] fruits, like oranges or lemon. ?Other foods [...] Do not drink alcohol. General instructions Take fsaa-cge-xzgnfbi and prescription medicines only as told by [...] provider. Document Revised: 06/12/2022 Document Reviewed: 06/12/2022 [employer] Patient Education 2022 PingMe. 05/09/2023 10:36:43 Colonoscopy, Care After Surgery Salam [...] hard liquor (44 mL). General instructions Take kvlr-lbz-wgvgrad and prescription medicines only as told by [...] provider. Document Revised: 08/03/2020 Document Reviewed: 08/03/2020 [employer] Patient Education 2022 PingMe. 05/09/2023 10:36:39 Diverticulosis [facility] (CUSTOM) Diverticulosis Many [...] unsweetened, w/added ascorbic acid 1 cup 0.5 [place] 1 cup 0.7 Vegetables Cooked Green beans 1 cup 4.0 Carrots 1/2 cup sliced 2.3 Peas 1 cup 8.8 Potato (baked, with skin) 1 medium potato 3.8 Raw Palisade (with peel) 1 cucumber 1.5 Lettuce 1 [...] 8.7 Peanuts 1/2 cup 7.9 [facility]. SEEK IMMEDIATE MEDICAL CARE IF: You [...] Information adapted from: ExitCare Patient Information 2009 Yasuu. Re.nooble 2012 [email or web address] 05/09/2023 10:36:37 Hemorrhoids, Yelq-ut-Push Hemorrhoids Hemorrhoids are swollen veins that may [...] 3 times a day. General instructions Take vovv-xyk-bbywdmu and prescription medicines only as told by [...] provider. Document Revised: 10/25/2021 Document Reviewed: 10/25/2021 [employer] Patient Education 2022 PingMe. Follow Up Care 03/18/2023 11:12:58 With:Tram DOUGLASS, JESSE Wahl, [facility] Address: [address], [address] [phone] When: Unknown Comments:Call for any problems. Office to call for follow up appointment. [facility] 05-02-2023 Evaluation note Encounter Date Diagnosis [...] prescription. A prescription was sent to the [employer] for new supplies throughout the year, as [...] in a timely fashion. Do not smoke. [facility] Other 11-08-2023 Hospital Discharge instructions Patient Education [...] treatment? Where to find more information The [employer]: www.cancer.org [employer]: www.auanet.org Contact a health care [...] provider. Document Revised: 10/09/2021 Document Reviewed: 10/09/2021 [employer] Patient Education 2022 SofGenie Follow Up Care 02/07/2022 09:23:28 With:MATTHEW CASTRO, ANJELICA Meza, URL Address: [facility] [address] [facility] [place] [address] [phone] When: Unknown Comments:1 yr w/ PSA [facility] [place] 10-09-2023 Note From: Jane Li I To: [facility] - Administrative; Sent: 11/26/2022 15:31:32 EDT Show up: 01/27/2023 15:31:00 EDT Subject: Colonoscopy Recall Reminder/Recall Please call and schedule in office with Dr. Ugalde/Kera for a surveillance colonoscopy. Patient scheduled for 02/19/[address] Ugalde.[facility] 10-16-2022 Evaluation + Plan noteExtracted from: Title:EU [...] Date:02/13/2023 08:30:00 AM Scheduled Provider:Todd CRUZ MD Location:[facility] Appointment Type:URO Office Visit Diagnostic Tests Pending * UroVysion Fish and Urine Cyto ([facility]) 10/16/22 [facility]06-20-2023 Note [id number]:127[facility] 10-16-2022 Hospital Discharge instructions Patient Education 10/16/2022 [...] [facility] [address], [place] [address] Business (1) When: Unknown Comments:Keep scheduled appointment [facility]06-20-2023 NoteCustom Cystoscopy ? Voiding after the [...] if you have a fever over 100 degrees.[facility] 10-03-2022 Hospital Discharge instructions Patient Education 10/03/2022 [...] Follow these instructions at home: Medicines Take nuai-uck-nlyjvwe and prescription medicines only as told by [...] or the blood stops without treatment. Take nbfh-zfs-nfttswq and prescription medicines only as told by your health care provider. Drink enough fluid to keep your urine pale yellow. This information is not intended to replace advice given to you by your health care provider. Make sure you discuss any questions you have with your health care provider. Document Revised: 12/14/2020 Document Reviewed: 12/14/2020 [employer] Patient Education 2022 PingMe. Follow Up Care 09/06/2022 09:26:45 With:MATTHEW CASTRO, ANJELICA Meza, URL Address: [address] [place] [address] When: Unknown [facility] 02-27-2023 Hospital Discharge instructions Patient Education 06/24/2022 [...] 11/27/2004 Document Revised: 03/28/2018 Document Reviewed: 03/06/2018 [employer] Patient Education 2020 PingMe. Follow Up Care 06/24/2022 21:38:40 With:Tulio Vaughan Address: [address] [place] [address]- Business (1) When:06/27/2022 With:Haven Encinas Address: [address] [place] [address]- Business (1) When:Within 3 Day(s) [facility]10-05-2022 Evaluation note* Encounter Date Diagnosis Assessment Notes Treatment Notes Treatment Clinical Notes Jan, Obstructive sleep apnea (ICD-10 - G47.33) Fortunately patient is using and benefiting from treatment. Download was reviewed with patient. His AHI is elevated at 11.7. We will go ahead and increase his pressure settings to 15/8 to eliminate some breakthrough apneas, an order was sent to the [employer] to have these completed. A prescription was also sent to the [employer] for new supplies throughout the year, as [...] of weight loss on KATHY were reviewed. [employer] Other 08-16-2022 Hospital Discharge instructions Patient Education [...] veins using minimally invasive surgery (subfascial endoscopic asset card clerk vein surgery). This method may be used in advanced cases. Follow these instructions at home: Medicines Take and use ycmc-jlw-hrgionf and prescription medicines and creams only as [...] 09/01/2009 Document Revised: 10/27/2018 Document Reviewed: 10/27/2018 [employer] Patient Education [employer]. Follow Up Care 12/11/2021 22:19:17 With:Milla Montoya Address: [address] [place] [phone] Business (1) When:12/14/2021 Comments:Call this vascular surgeon to discuss potential therapies for her varicose veins should they continue to become symptomatic. With:Haven Encinas Address: [address] [place], [place] [address] [address] Business (1) When:12/14/2021 Comments:Call the office of [...] to the area. Return with further bleeding. [facility]01-01-2012 History general Narrative - Reported* Type Description Date Medical History Hypertension Medical History BPH Medical History severe KATHY Medical History CAD, one stent Medical History prostate cancer 2011 Surgical History Cardiac Stent Placement 04/2011 Surgical History Seed Implant 06/2011 Surgical History Sebaceous Cyst Excised 2008 Hospitalization History see surgical hx [employer] Other Evaluation + Plan note Future Appointments Appointment Date:02/07/2022 08:30:00 AM Scheduled Provider:Todd CRUZ MD Location:[facility] Appointment Type:URO [facility] Future Appointments Appointment Date:01/29/2022 09:15:00 AM Scheduled Provider:Milla Montoya MD Location[facility] Appointment Type:Vascular Follow Up (FT) Appointment Date:02/07/2022 08:30:00 AM Scheduled Provider:Todd CRUZ MD Location:[facility] [place] Appointment Type:URO [facility] Future Appointments Appointment Date:02/13/2023 08:30:00 AM Scheduled Provider:Todd CRUZ MD Location:[facility] [place] [place] Appointment Type:URO [facility] Future Appointments Appointment Date:02/13/2023 08:30:00 AM Scheduled Provider:Todd CRUZ MD Location:[facility] [place] Appointment Type:URO Office Visit Future Scheduled Tests Radiology* CT Abdomen/Pelvis w/o Contrast 10/03/22 [facility] note Future Appointments Appointment Date:02/13/2023 08:30:00 AM Scheduled Provider:Todd CRUZ MD Location:[facility] [place] Appointment Type:URO Office Visit Diagnostic Tests Pending * Urine Culture 10/03/22 Future Scheduled Tests Radiology* CT Abdomen/Pelvis w/o Contrast 10/03/22 [facility] Future Appointments Appointment Date:10/16/2022 08:30:00 AM Scheduled Provider: Location:[facility] Appointment Type:Urology FT Appointment Date:02/13/2023 08:30:00 AM Scheduled Provider:Todd CRUZ MD Location:[facility] [place] Appointment Type:URO [facility] Future Appointments Appointment Date:02/13/2023 08:30:00 AM Scheduled Provider:Todd CRUZ MD Location:[facility] Appointment Type:URO Office Visit Appointment Date:02/19/2023 03:00:00 PM Scheduled Provider:Zina Ugalde MD Location:[facility] Appointment Type:[facility] New Patient [facility] Evaluation + Plan note Future Appointments Appointment Date:02/13/2023 08:30:00 AM Scheduled Provider:Todd CRUZ MD Location:[facility] Appointment Type:URO Office Visit Appointment Date:02/19/2023 03:00:00 PM Scheduled Provider:Zina Ugalde MD Location:[facility] Appointment Type:[facility] New Patient Diagnostic Tests Pending * UroVysion Fish and Urine Cyto ([facility]) 02/06/23 [facility] Future Appointments Appointment Date:03/06/2023 03:00:00 PM Scheduled Provider:ANJELICA NATION PA-C Location:[facility] Appointment Type:URO Office Visit Appointment Date:03/18/2023 10:15:00 AM Scheduled Provider:Zina Ugalde MD Location:[facility] Appointment Type:[facility] Future Appointments Appointment Date:03/18/2023 10:15:00 AM Scheduled Provider:Zina Ugalde MD Location:[facility] Appointment Type:BAD New Patient Appointment Date:03/12/2024 08:30:00 AM Scheduled Provider:ANJELICA NATION PA-C Location:[facility] Appointment Type:URO Office Visit Future Scheduled Tests Laboratory* PSA Total 03/06/24 [facility] Evaluation + Plan note Future Appointments Appointment Date:05/09/2023 10:00:00 AM Scheduled Provider: Location:[facility] Surgical Services Appointment Type:Surgery FT Appointment Date:03/12/2024 08:30:00 AM Scheduled Provider:ANJELICA NATION PA-C Location:[facility] Appointment Type:URO Office Visit Future Scheduled Tests Laboratory* PSA Total 03/06/24 * CBC w/ Auto Diff 03/18/23 * Comprehensive Metabolic Panel 03/18/[address] [facility] Evaluation + Plan note Future Appointments Appointment Date:03/12/2024 08:30:00 AM Scheduled Provider:ANJELICA NATION PA-C Location:[facility] Appointment Type:URO Office Visit Future Scheduled Tests Laboratory* PSA Total 03/06/24 * CBC w/ Auto Diff 03/18/23 * Comprehensive Metabolic Panel 03/18/23 [facility] Future Appointments Appointment Date:03/12/2024 08:30:00 AM Scheduled Provider:ANJELICA NATION PA-C Location:[facility] Appointment Type:URO Office Visit Future Scheduled Tests Laboratory* PSA Total 03/06/[address] [facility] Evaluation noteNo assessment information available [facility] Work Phone: Evaluwzyjz noteNo InformationNort [employer] Other Hospital course Narrative No data available for this section [facility] No data available for this section [facility] No data available for this section [facility] Chief Complaint * ESTRADA PFEIFFER is [...] several months ago by vascular surgery at [facility]. Lipid profile from recent testing was [...] he had venous stripping last year at [facility] * 6. Sleep apnea on CPAP machine [...] he had venous stripping last year at [facility] * 6. Sleep apnea on CPAP machine [...] section and content) DATE CREATED AUTHOR 12/18/2022 [facility] ical [facility] DATE CREATED AUTHOR AUTHOR'S ORGANIZ ATION 12/18/2022 [employer] DATE CREATED AUTHOR AUTHOR'S ORGANIZ ATION 05/26/2023 [facility] DATE CREATED AUTHOR AUTHOR'S ORGANIZ ATION 06/19/2023 [facility] DATE CREATED AUTHOR AUTHOR'S ORGANIZ ATION 06/28/2023 [facility] FOR RECORDS PERTAINING TO PATIENTS [...] BE BASED ON THE PRIMARY CLINICAL RECORDS. [facility]. provides no warranty or guarantee of the accuracy or completeness of information in this document.
== END 2023-07-09 08:12 | disposition home or self-care (01) ==
LOC: VC 08:11
PROVIDERS: Family Provider Family Medicine; PCP Radiology Diagnostic Radiology; Visit Provider Radiology Diagnostic Radiology
DX: I83.813 Varicose veins of bilateral lower extremities with pain (principal)
CPT/HCPCS: 36466

== ENCOUNTER 2023-07-16 09:08 | Outpatient (OUT) | payer MEDICARE, SELFPAY ==
--- NOTE | 2023-07-16 09:09 | VEIN_ITS ---
Patient Name: ESTRADA PFEIFFER MR#: [id number] : 1945 Exam Date: 07/16/2023 Ordering Doctor: DR TULIO ROONEY M.D. RADIOLOGY REPORT PROCEDURE: VC EXT VENOUS LT LIMITED COMPARISON: VC EXT VENOUS LT LIMITED, 07/03/2023. VC EXT VENOUS LT LIMITED, 06/05/2023. INDICATIONS: I80.02 Phlebitis of superficial veins of lt lower extremity TECHNIQUE: Lower extremity garrido scale and Duplex Doppler evaluation of the deep venous system from the inguinal ligament through the calf veins. FINDINGS: REGION: Left lower extremity. THROMBI: Negative for DVT. Varithena induced thrombus visualized at mid/med thigh, mid/med calf, and lat/mid calf. COMPRESSIBILITY: Non-compressible segments corresponding to thrombus FLOW: Areas of no flow corresponding to thrombus OTHER: No patent varicose veins remain. 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 No residual varicose veins remain Dictated by: Tulio Rooney MD on 07/16/2023 at 09:35 Approved by: Tulio Rooney MD on 07/16/2023 at 09:36
--- NOTE | 2023-07-16 09:09 | VEIN_ITS ---
Patient Name: ESTRADA PFEIFFER MR#: [id number] : 1945 Exam Date: 07/16/2023 Ordering Doctor: DR TULIO ROONEY M.D. RADIOLOGY REPORT PROCEDURE: [facility] EST LMTD VEIN [facility] - OFFICE VISIT FOLLOW UP COMPARISON: [facility] EST LMTD, 07/03/2023. [facility] EST LMTD, 06/05/2023. PROGRESS NOTES: The patient reports no significant problems micro foam chemical left leg incompetent varicose veins. The patient did wear his compression stockings. The patient did not require oral analgesics. The patient has tried exercise. Physical exam demonstrates multiple thrombosed varicose veins. No patent varicose veins are observed. No erythema or warmth to suggest cellulitis or thrombophlebitis. No active ulceration. Patent reticular and spider veins remain bilaterally. Review of the ultrasound performed the same day demonstrates occlusive thrombus extending throughout the treated left leg varicose veins. No significant incompetent varicose veins remain on the right a left leg period moderate bilateral reticular and spider veins. The patient expressed a desire to proceed with treatment of reticular and spider veins with injection sclerotherapy. This will require precertification before we started. VEIN/[facility] EST LMTD IMPRESSION: 1. Successful ablation of incompetent left leg varicose veins 2. Persistent bilateral reticular and spider veins. PLAN: Injection sclerotherapy of reticular and spider veins Nurse notes, history and physical were reviewed and confirmed, see attached forms. The nurse was present throughout the physical exam and consultation Dictated by: Tulio Rooney MD on 07/16/2023 at 10:17 Approved by: Tulio Rooney MD on 07/16/2023 at 10:18
== END 2023-07-16 09:09 | disposition home or self-care (01) ==
LOC: VC 09:08
PROVIDERS: Family Provider Family Medicine; PCP Radiology Diagnostic Radiology; Visit Provider Radiology Diagnostic Radiology
DX: I80.02 Phlebitis and thrombophlebitis of superficial vessels of left lower extremity (principal)
CPT/HCPCS: 93971; G0463